=== PATIENT | female | born 1990 | race Caucasian/White ===

== ENCOUNTER 2020-08-20 01:31 | Emergency (ER) | payer OTHER, SELFPAY | END 2020-08-20 02:16 | disposition left against medical advice (07) | PROVIDERS: Emergency Provider Emergency Medicine | DX: R50.9 Fever, unspecified (principal) | CPT/HCPCS: 99281 ==

== ENCOUNTER 2021-04-02 10:25 | Emergency (ER) | payer OTHER, SELFPAY ==
[2021-04-02 11:08] VITALS: BP 116/80; PULSE 99; RESP 18; TEMP 36.5; O2SAT 99; BMI 28.3
--- NOTE | 2021-04-02 11:50 | ED.GENADULT ---
HPI - General Adult General Chief complaint: Skin/Abscess/Foreign Body Stated complaint: BOIL Time Seen by Provider: 04/02/21 11:50 Source: patient Limitations: no limitations History of Present Illness HPI narrative: Patient states she has recurring abscesses to the buttocks in the past. Patient states she has had no drainage from this wound at this time and has had to have them drained in the past. Symptoms are moderate. Pain is 8/10. No other complaints at this time. Worsening symptoms over the past 2-3 days. Related Data Previous Rx's Medication Instructions Recorded cephalexin [Keflex] 750 mg PO Q12H #10 cap 04/02/21 minocycline 100 mg PO BID #10 cap 04/02/21 Allergies Allergy/AdvReac Type Severity Reaction Status Date / Time sulfamethoxazole Allergy Severe SWELLING Unverified 08/06/20 16:04 [From BACTRIM] trimethoprim [From BACTRIM] Allergy Severe SWELLING Unverified 08/06/20 16:04 Sulfa (Sulfonamide Allergy Unknown Verified 01/25/16 00:00 Antibiotics) Review of Systems Constitutional: Constitutional: Denies chills and Denies fever(s) ENT: Denies sore throat Cardiovascular: Cardiovascular: Denies chest pain, Reports palpitations and Denies dyspnea Respiratory: Respiratory: Denies dyspnea Gastrointestinal: Gastrointestinal: Denies diarrhea, Denies nausea and Denies vomiting Musculoskeletal: Musculoskeletal: Reports no additional musculoskeletal complaints Psychiatric: Psychiatric: Denies anxiety Endocrine: Endocrine: Reports palpitations Hematologic/Lymphatic: Hematologic/Lymphatic: Denies easy bleeding PMFSH Past Medical History Attestation statement: The following information was validated with the patient. Medical History No acute medical problems Surgical History History of appendectomy Tubal ligation status Social History Social History Advance Directives: Yes Advance Directives Information Provided: No Advance Directives on File: No Patient : No Physical Exam Vital Signs: Vital Signs: Last Vital Signs Temp 97.7 F 04/02/21 11:08 Pulse 99 04/02/21 11:08 Resp 18 04/02/21 11:08 BP 116/80 04/02/21 11:08 Pulse Ox 99 04/02/21 11:08 Body Mass Index 28.3 Course Course Course Narrative: Differential diagnosis Perianal abscess on the left Pilonidal abscess Recurring abscesses 12:10 p.m. Patient prepped for I and D of perirectal 1% lidocaine used to infiltrate the wound Patient did not tolerate procedure well and refused to continue at this time she understands the need for an I and D at this time states she would rather try antibiotics and hope it resolves on its own. Patient has had multiple abscesses in the past and understands the risk to benefit. Plan to discharge patient home on minocycline and Keflex at this time. Patient instructed to multiple warm soaks and return if symptoms worsen Discharge Plan Discharge Clinical Impression: Abscess Patient Disposition: Home, Self-Care Instructions: Abscess (ED) Additional Instructions: May still need I&D in the future. Return if symptoms worsen It is likely this abscess and will not go away without getting it drain. Antibiotics as directed Prescriptions: New minocycline 100 mg capsule 100 mg PO BID Qty: 10 RF: 0 cephalexin [Keflex] 750 mg capsule 750 mg PO Q12H Qty: 10 RF: 0 Referrals: Felicita Melgar MD [Primary Care Provider] - 2 days
[2021-04-02] MEDS: Lidocaine HCl 1 % MPF 5 ML VIAL INFILTRATI (12:41)
== END 2021-04-02 12:35 | disposition home or self-care (01) ==
PROVIDERS: Emergency Provider Emergency Medicine; PCP Internal Medicine
DX: L02.31 Cutaneous abscess of buttock (principal); Z79.899 Other long term (current) drug therapy
CPT/HCPCS: 99283

== ENCOUNTER 2022-01-10 08:15 | Emergency (ER) | payer OTHER, SELFPAY ==
[2022-01-10 08:46] VITALS: BP 125/77; PULSE 109; RESP 18; TEMP 36.7; O2SAT 98; BMI 26.2
--- NOTE | 2022-01-10 08:51 | ED.SKABFB ---
HPI - Skin/Abscess/Foreign Bdy General Chief complaint: Skin/Abscess/Foreign Body Stated complaint: question shingles Time Seen by Provider: 01/10/22 08:51 Source: patient Mode of arrival: ambulatory Limitations: no limitations History of Present Illness MD complaint: rash and lesion Onset (ago): day(s) (3) Tetanus up to date: yes Location: chest (L chest wall onto back under armpit) Severity: severe Quality: burning and aching Pain Consistency: constant Relieving factors: none Exacerbating factors: palpation and movement Context: other (hx of shingles in the past) Associated symptoms: denies other symptoms Treatments prior to arrival: none Related Data Previous Rx's Medication Instructions Recorded cephalexin 750 mg capsule (Keflex) 750 mg PO Q12H #10 cap 04/02/21 minocycline 100 mg capsule 100 mg PO BID #10 cap 04/02/21 hydrocodone 5 mg-acetaminophen 325 1 tab PO Q6H PRN #12 tab 01/10/22 mg tablet prednisone 20 mg tablet 20 mg PO DAILY 5 Days #5 tab 01/10/22 valacyclovir 1 gram tablet 1,000 mg PO TID 7 Days #21 tab 01/10/22 (Valtrex) Allergies Allergy/AdvReac Type Severity Reaction Status Date / Time sulfamethoxazole Allergy Severe SWELLING Unverified 08/06/20 16:04 [From BACTRIM] trimethoprim [From BACTRIM] Allergy Severe SWELLING Unverified 08/06/20 16:04 Sulfa (Sulfonamide Allergy Unknown Unknown Verified 01/10/22 08:49 Antibiotics) Review of Systems Review of Systems: Constitutional : No Fever, No Chills ENT/Mouth : No sore throat, No Rhinorrhea Eyes: No Eye Pain, No Swelling, No Redness Cardiovascular : No Chest Pain, No SOB Respiratory : No Cough, No Sputum Gastrointestinal : No Nausea, No Vomiting, No Diarrhea, No abdominal Pain Genitourinary : No Dysuria, No Hematuria Musculoskeletal : No joint pain, No Myalgias, No Joint Swelling Skin : pos Skin Lesions, positive skin rash Neuro : No Weakness, No Numbness, No Headache Psych : No Anxiety, No Depression PMFSH Past Medical History Attestation statement: The following information was validated with the patient. Medical History No acute medical problems Surgical History History of appendectomy Tubal ligation status Social History Social History Patient Tobacco Use Status: Never used Tobacco Advance Directives: No Advance Directives Information Provided: No Patient : No Physical Exam Vital Signs: Vital Signs: Last Vital Signs Temp 98.0 F 01/10/22 08:46 Pulse 109 H 01/10/22 08:46 Resp 18 01/10/22 08:46 BP 125/77 01/10/22 08:46 Pulse Ox 98 01/10/22 08:46 BMI result Body Mass Index 26.2 Appearance: Alert. Oriented X3. No acute distress. Eyes: Pupils equal, round and reactive to light. ENT: Pharynx normal. Neck: Normal inspection. Neck supple. CVS: Normal heart rate and rhythm. Pulses normal. Chest wall: L axilla thoracic region blistering areas raised vesicles appears as shingles. Respiratory: No respiratory distress. Breath sounds normal. Abdomen: Soft and non-tender. Skin: Skin warm and dry. Normal skin color. Normal skin turgor. Extremities: No lower extremity edema. Neuro: Oriented X 3. No motor deficit. No sensory deficit. Course Course Course Narrative: had to change pain medications due to issue with insurance MDM - Skin/Abscess/Foreign Bdy MDM Narrative Medical decision making narrative: 31 yo female with hx of shingles in the past here with 3 days of L thoracic axilla rash consistent with shingles no signs of secondary infectino - will start on valtrex, prednisone and morphine - given precautions to return Discharge Plan Discharge Clinical Impression: Shingles Qualifiers: Herpes zoster complications: without complications Qualified Code(s): B02.9 - Zoster without complications Patient Disposition: Home, Self-Care Instructions: Shingles (ED) Additional Instructions: return to ED for any worsening symptoms or concerns monitor for signs of infection Prescriptions: New valacyclovir [Valtrex] 1 gram tablet 1,000 mg PO TID 7 Days Qty: 21 0RF prednisone 20 mg tablet 20 mg PO DAILY 5 Days Qty: 5 0RF hydrocodone-acetaminophen 5-325 mg tablet 1 tab PO Q6H PRN (Reason: pain) Qty: 12 0RF No Action minocycline 100 mg capsule 100 mg PO BID Qty: 10 0RF cephalexin [Keflex] 750 mg capsule 750 mg PO Q12H Qty: 10 0RF Interventions: ED Discharge Assessment Last Done: 01/10/22 09:26 Discharge Date/Time: 01/10/22 09:26
== END 2022-01-10 09:26 | disposition home or self-care (01) ==
PROVIDERS: Emergency Provider Emergency Medicine; PCP Internal Medicine
DX: B02.9 Zoster without complications (principal); Z79.899 Other long term (current) drug therapy
CPT/HCPCS: 99283

== ENCOUNTER 2022-01-11 09:17 | Emergency (ER) | payer OTHER, SELFPAY ==
[2022-01-11 09:44] VITALS: BP 116/77; PULSE 89; RESP 16; TEMP 36.7; O2SAT 97; BMI 26.4
--- NOTE | 2022-01-11 09:54 | ED.SKABFB ---
HPI - Skin/Abscess/Foreign Bdy General Chief complaint: Skin/Abscess/Foreign Body Stated complaint: Shingles Time Seen by Provider: 01/11/22 09:52 Source: patient Mode of arrival: ambulatory Limitations: no limitations History of Present Illness HPI narrative: Patient is a 31 year old female presenting to the emergency department today with shingles. Patient states that she was seen here yesterday and diagnosed with a shingles flare. Patient states that she has a history of shingles and this feels like it did before. Patient states that yesterday, she was prescribed prednisone, vicodin, and an antiviral but she is is still in a lot of pain. Patient denies any changes in the shingles rash. Patient denies any dizziness, lightheadedness, abdominal pain, nausea, vomiting, fever, chills, blurry vision, double vision, loss of vision, chest pain, difficulty breathing, shortness of breath, back pain, night sweats, pain with urination, increased urinary frequency, increased urinary urgency, blood in her urine or stool, syncope or a near syncopal episode, recent trauma or falls, bowel incontinence, bladder incontinence, bowel retention, bladder retention, or any other complaints at this time. MD complaint: rash Location: chest (left chest) Severity: mild Quality: burning and constant Pain Consistency: constant Relieving factors: none Exacerbating factors: none Associated symptoms: denies other symptoms Related Data Previous Rx's Medication Instructions Recorded cephalexin 750 mg capsule (Keflex) 750 mg PO Q12H #10 cap 04/02/21 minocycline 100 mg capsule 100 mg PO BID #10 cap 04/02/21 hydrocodone 5 mg-acetaminophen 325 1 tab PO Q6H PRN #12 tab 01/10/22 mg tablet prednisone 20 mg tablet 20 mg PO DAILY 5 Days #5 tab 01/10/22 valacyclovir 1 gram tablet 1,000 mg PO TID 7 Days #21 tab 01/10/22 (Valtrex) Allergies Allergy/AdvReac Type Severity Reaction Status Date / Time sulfamethoxazole Allergy Severe SWELLING Unverified 08/06/20 16:04 [From BACTRIM] trimethoprim [From BACTRIM] Allergy Severe SWELLING Unverified 08/06/20 16:04 Sulfa (Sulfonamide Allergy Unknown Unknown Verified 01/10/22 08:49 Antibiotics) Review of Systems Constitutional: Constitutional: Reports no additional constitutional complaints, Denies chills, Denies fever(s) and Denies night sweats Eyes: Eyes: Reports no additional eye complaints, Denies blurry vision, Denies change in vision, Denies diplopia, Denies eye discharge, Denies loss of vision and Denies eye pain ENT: Denies dizziness Cardiovascular: Cardiovascular: Reports no additional cardiovascular complaints, Denies chest pain, Denies lightheadedness, Denies Loss of Consciousness and Denies dyspnea Respiratory: Respiratory: Reports no additional respiratory complaints and Denies dyspnea Gastrointestinal: Gastrointestinal: Reports no additional gastrointestinal complaints, Denies abdominal pain, Denies melena, Denies hematochezia, Denies change in bowel habits and Denies change in stool character Genitourinary: Genitourinary: Denies hematuria, Denies urinary frequency, Denies dysuria, Denies urinary incontinence, Denies urinary hesitancy and Denies urinary urgency Musculoskeletal: Musculoskeletal: Reports no additional musculoskeletal complaints, Denies numbness and Denies tingling Integumentary/Breasts: Skin/Breast: Reports rash (left axilla and breast) Neurologic: Denies dizziness, Denies loss of vision, Denies numbness and Denies tingling Psychiatric: Psychiatric: Reports no additional psychiatric complaints Endocrine: Endocrine: Reports no additional endocrine complaints Hematologic/Lymphatic: Hematologic/Lymphatic: Reports no additional hematologic/lymphatic complaints Allergic/Immunologic: Allergic/Immunologic: Reports no additional allergic/immunologic complaints [facility] Past Medical History Attestation statement: The following information was validated with the patient. Source: old records reviewed Medical History No acute medical problems Surgical History History of appendectomy Tubal ligation status Social History Social History Patient Tobacco Use Status: Never used Tobacco Advance Directives: No Advance Directives Information Provided: No Patient : No Physical Exam Vital Signs: Vital Signs: Last Vital Signs Temp 98.1 F 01/11/22 09:44 Pulse 89 01/11/22 09:44 Resp 16 01/11/22 09:44 BP 116/77 01/11/22 09:44 Pulse Ox 97 01/11/22 09:44 BMI result Body Mass Index 26.4 Const: General: cooperative, no acute distress, alert and awake Nutritional Appearance: well nourished Orientation/consciousness: patient oriented x3 Limitations: no limitations HENMT: Head: Yes normal to inspection and Yes atraumatic Ears: hearing grossly normal bilaterally and external ears normal General nose exam: Normal external nose present, no nasal discharge noted and no epistaxis Face and sinus: Yes normal facial exam, No abrasion and No laceration Mouth: Normal oral and palatal mucosa present, no drooling and no muffled voice Eyes: General: appearance normal, both eyes and all related structures Periorbital: periorbital findings normal Eyelids: Yes eyelids normal Conjunctivae: conjunctivae normal Pupils: Equal, round and reactive pupils present EOM: EOMs intact bilaterally Neck: Neck: Yes normal visual inspection, Yes full ROM and Yes no lymphadenopathy Chest: Chest palpation & inspection: normal inspection of the chest Resp: Effort & Inspection: normal respiratory effort and able to speak in complete sentences Auscultation: clear to auscultation bilaterally Cardio: Rate: regular rate Rhythm: regular rhythm GI: Inspection: Yes normal to inspection Skin: Other: herpetic lesions present to the left axilla and breast, consistent with a herpes zoster outbreak Neuro: General: patient oriented x3 and moves all extremities Cranial nerves: Yes Equal, round and reactive pupils present Cognition (Neuro): normal cognition Motor exam (neuro): 5/5 motor strength present throughout Sensory Exam: Normal double simultaneous stimulation for sensation Coordination: [id number] test normal Extrem: General: Yes normal to inspection, Yes full ROM and Yes capillary refill normal Psych: Appearance: grossly normal Mental Status: mental status grossly normal Affect: normal affect Attitude: cooperative Thought process: Normal thought process present Thought content: Normal thought content present Insight: Good insight present (Psych) MDM - Skin/Abscess/Foreign Bdy MDM Narrative Medical decision making narrative: Patient is a 31 year old female presenting to the emergency department today with a current shingles outbreak. Patient's physical exam showed herpetic lesions to the left axilla and left breast, consistent with an acute herpes zoster outbreak. There was no signs of an acute infectious process such as red streaking, warmth, or abscesses. I explained my physical exam findings to the patient. I answered all questions asked by the patient. I explained to the patient that the treatment regimen she was started on yesterday and currently undergoing, is the correct, most up to date, treatment regimen for an acute shingles outbreak. I stressed the importance of the patient taking her medication as prescribed. I stressed the importance of the patient following up with her primary care provider. I stressed the importance of the patient returning to the emergency department immediately if her symptoms were to worsen or if she were to develop any dizziness, shortness of breath, difficulty breathing, chest pain, blurry vision, loss of vision, nausea, vomiting, abdominal pain, fever, chills, back pain, or any other complaints. Patient verbalized agreement and understanding with this treatment plan and discharge. Differential Diagnosis Differential diagnosis: Likely viral exanthem and herpes zoster Medical Records Attestation: I reviewed the patient's medical records. Discharge Plan Discharge Clinical Impression: Herpes zoster Patient Disposition: Home, Self-Care Instructions: Shingles (ED) Additional Instructions: Continue taking your medications as prescribed at your previous ED visit. Follow up with your primary care provider. Return to the emergency department immediately if your symptoms worsen or if you develop any dizziness, shortness of breath, difficulty breathing, chest pain, blurry vision, loss of vision, nausea, vomiting, abdominal pain, fever, chills, back pain, or any other complaints. Prescriptions: No Action minocycline 100 mg capsule 100 mg PO BID Qty: 10 0RF cephalexin [Keflex] 750 mg capsule 750 mg PO Q12H Qty: 10 0RF valacyclovir [Valtrex] 1 gram tablet 1,000 mg PO TID 7 Days Qty: 21 0RF prednisone 20 mg tablet 20 mg PO DAILY 5 Days Qty: 5 0RF hydrocodone-acetaminophen 5-325 mg tablet 1 tab PO Q6H PRN (Reason: pain) Qty: 12 0RF Referrals: Felicita Melgar MD [Primary Care Provider] - 2 days Print Language: Belarusian
== END 2022-01-11 10:18 | disposition home or self-care (01) ==
PROVIDERS: Emergency Provider Emergency Medicine; PCP Internal Medicine
DX: B02.9 Zoster without complications (principal)
CPT/HCPCS: 99282; 99283

== ENCOUNTER 2022-05-16 18:25 | Emergency (ER) | payer OTHER, SELFPAY | END 2022-05-16 19:31 | disposition left against medical advice (07) | PROVIDERS: Emergency Provider Emergency Medicine; PCP Internal Medicine | DX: R07.9 Chest pain, unspecified (principal); R05.9 Cough, unspecified ==

== ENCOUNTER 2022-07-18 08:52 | Inpatient (IN) | payer OTHER, SELFPAY ==
--- NOTE | ~2022-07-18 | XR_ITS ---
EXAMINATION: XR CHEST CLINICAL INFORMATION: Chest pain and shortness of breath. COMPARISON: Chest radiograph 08/11/2020. TECHNIQUE: 2 views of the chest were obtained. FINDINGS: Normal appearance of the cardiomediastinal silhouette. No focal airspace opacity, pleural effusion or pneumothorax. No acute osseous abnormalities. The visualized upper abdomen is within normal limits. XR/XR chest 2V IMPRESSION: No acute cardiopulmonary findings.
--- NOTE | ~2022-07-18 | CT_ITS ---
EXAMINATION: CT ANGIOGRAM OF THE CHEST WITH AND WITHOUT CONTRAST (CT PULMONARY ANGIOGRAM FOR PE) CLINICAL INFORMATION: Chest pain, shortness of breath, tachycardia, elevated d-dimer. COMPARISON: No similar priors. TECHNIQUE: Prior to contrast administration, noncontrast localization images were obtained. Subsequently, multidetector volumetric imaging was performed from the thoracic inlet to below the diaphragms following the administration of 65 mL Omnipaque 350 intravenous contrast. No contrast reaction reported Sagittal, coronal, and MIP oblique sagittal reformatted images were obtained on the CT workstation, uploaded to PACS, and reviewed. This CT examination was performed using dose optimization techniques as appropriate, variously including the following: *Automated exposure control *Adjustment of mA and/or kV according to patient size (this includes techniques or standardized protocols for targeted exams where dose is matched to indication/reason for exam; i.e. extremities or head) *Use of iterative reconstruction technique Total exam dose-length product 234 mGy-cm FINDINGS: QUALITY OF STUDY/CONTRAST BOLUS: Satisfactory. PULMONARY ARTERIES: Query small nonocclusive filling defects within segmental branches of the posterior right lower lobe, for instance images 264 through 281, series 7. No central pulmonary emboli. THORACIC AORTA: No aneurysm or dissection. LUNG: Cylindrical bronchiectasis with mucus impaction in the posterior right lower lobe. There is a background of mild diffuse bronchial wall thickening and scattered cystic lucencies. Irregular opacity measuring approximately 1.7 cm on largest axial dimension (7:236) abutting the anterior aspect of the right major fissure. There is a 0.5 cm nodule in the anterolateral right upper lobe (7:174). Platelike opacities in the lingula and posterior left lower lobe in favored to represent scarring or subsegmental atelectasis. PLEURA: No pleural effusion or pneumothorax. MEDIASTINUM: Normal heart size. No pericardial effusion. No evidence of septal bowing or right heart strain. There is mediastinal and hilar lymphadenopathy, for instance a 1.6 x 1.8 cm left hilar lymph node (5:25) and a 1.2 cm short axis subcarinal lymph node (5:26). CHEST WALL/AXILLA: There is asymmetric skin thickening in the right axillary region (5:4). No chest wall mass or axillary lymphadenopathy by size criteria. OSSEOUS STRUCTURES: No acute or suspicious osseous abnormality. UPPER ABDOMEN: Hepatic steatosis. No reflux of contrast into the hepatic veins to suggest elevated right heart pressures. CT/CT angio chest PE protocol IMPRESSION: Questionable small nonocclusive pulmonary emboli in the right lower lobe. Bronchiectasis with mucus impaction in the posterior right lower lobe. Indeterminate irregular opacity in the inferior right upper lobe abutting the major fissure and 0.5 cm nodule in the anterolateral right upper lobe. Query cystic lung disease with bronchial wall thickening and very small cystic lucencies scattered in the parenchyma. Nonspecific mediastinal and hilar lymphadenopathy. Recommend a short-term follow-up high-resolution chest CT. VTE: positive This critical result was discussed with Juanita Haas, nurse practitioner at 07/18/2022 12:15 PM and it was ascertained that the content and urgency of the report was understood at the time of direct communication.
--- NOTE | ~2022-07-18 | US_ITS ---
EXAMINATION: US VENOUS ULTRASOUND WITH DOPPLER LOWER EXTREMITY, BILATERAL CLINICAL INFORMATION: New bilateral pulmonary emboli COMPARISON: CT PE study 07/18/2022 TECHNIQUE: Ultrasound of the deep veins is performed from the hip to the calf with compression sonography and color and pulse Doppler assessment. Spectral analysis with color-flow imaging is performed. FINDINGS: RIGHT: There is normal venous compression and respiratory variation and augmented flow. The visualized common femoral vein, superficial femoral vein, profunda femoral vein, popliteal vein, and the trifurcation region shows no evidence of deep venous thrombosis. There is no significant popliteal fossa cyst. Some small lymph nodes are present in the groin LEFT: There is normal venous compression and respiratory variation and augmented flow. The visualized common femoral vein, superficial femoral vein, profunda femoral vein, popliteal vein, and the trifurcation region shows no evidence of deep venous thrombosis. There is no significant popliteal fossa cyst. Some small lymph nodes are present in the groin If the patient's symptoms persist, followup ultrasound in 5 days 7 days might be of value to exclude proximal propagation from a non-visualized calf vein. US/US venous duplex LE BI IMPRESSION: No DVT demonstrated in either lower extremity.
--- NOTE | 2022-07-18 09:01 | ECG_ITS ---
Test Reason : chest pain Blood Pressure : / mmHG Vent. Rate : 091 BPM Atrial Rate : 091 BPM P-R Int : 160 ms QRS Dur : 076 ms QT Int : 342 ms P-R-T Axes : 023 057 030 degrees QTc Int : 420 ms Normal sinus rhythm Normal ECG When compared with ECG of 30-APR-2018 08:48, No significant change was found Referred By: Juanita Haas Electronically Signed By:PRIYA FAIRCHILD
[2022-07-18 09:02] VITALS: BP 115/74; PULSE 101; RESP 14; TEMP 37.2; O2SAT 98; BMI 27.4
[2022-07-18 09:09] VITALS: BP 116/54; PULSE 104; RESP 20; TEMP 36.6; O2SAT 97; BMI 25.1
--- NOTE | 2022-07-18 09:40 | ED.CHESTPAIN ---
HPI - Chest Pain General Chief Complaint: Chest Pain Stated Complaint: chest pains Time Seen by Provider: 07/18/22 09:01 Source: patient Mode of arrival: ambulatory Limitations: no limitations History of Present Illness HPI narrative: Patient presents emergency department for evaluation of chest pain. Onset was yesterday. Located to the mid chest just below her sternum. Pain has been constant since its onset, 1st noticed while she was eating at a buffet. It is described as sharp. It is aggravated by movement and deep inspiration, denies alleviating factors. States that she has been feeling hot and cold, but when checking temperature she has not been febrile. Also has associated cough intermittently productive. She reports a history of similar pain in the past, she was found to have pneumonia. Denies nasal congestion, ear pain, sore throat, palpitations, nausea, vomiting, abdominal pain, dysuria, urinary frequency, possibility of . Related Data Home Medications Medication Instructions Recorded Confirmed albuterol sulfate 90 mcg/actuation 2 puff inhalation Q4H 07/18/22 07/18/22 aerosol inhaler (ProAir HFA) bictegravir 50 mg-emtricitabine 1 tab PO DAILY 07/18/22 07/18/22 200 mg-tenofovir alafenam 25 mg tablet (Biktarvy) Allergies Allergy/AdvReac Type Severity Reaction Status Date / Time sulfamethoxazole Allergy Severe SWELLING Verified 07/18/22 09:02 [From BACTRIM] trimethoprim [From BACTRIM] Allergy Severe SWELLING Verified 07/18/22 09:02 Sulfa (Sulfonamide Allergy Unknown Unknown Verified 07/18/22 09:02 Antibiotics) Review of Systems Review of Systems: Constitutional : No Weight loss, No Fever, No Chills ENT/Mouth :? No sore throat, No Rhinorrhea Eyes: No Eye Pain, No Swelling Cardiovascular : pos Chest Pain, pos SOB, no Dyspnea on Exertion, No Orthopnea, No Edema, No Palpitations Respiratory : No Cough, No Sputum Gastrointestinal : pos Nausea, No Vomiting, No Diarrhea, No abdominal Pain, No Hematochezia, No Melena Genitourinary : No Dysuria, No Urinary Frequency Musculoskeletal : No joint pain, No Myalgias, No Joint Swelling Skin : No Skin Lesions, No rash Neuro : No Weakness, No Numbness, No Dizziness, No Headache Psych : No Anxiety/Panic, No Depression Heme/Lymph: No Bruising, No Lymphadenopathy Endocrine : No Polyuria, No Polydipsia Yes all other systems are reviewed and are negative [facility] Past Medical History Attestation statement: The following information was validated with the patient. Source: old records reviewed Medical History (Updated 07/18/22 @ 16:37 by Florencia Moura MD) HIV (human immunodeficiency virus infection) No acute medical problems Surgical History History of appendectomy Tubal ligation status Social History Social History Household Members: Spouse and Children Housing: Apartment Do you presently have visiting nurse or other home services: No Alcohol intake: never Patient Tobacco Use Status: Current someday Tobacco user Tobacco use type: Cigarette Cigarettes Per Day: 5 Substance Use Type: Marijuana Physical Exam Vital Signs: Vital Signs: Last Vital Signs Temp 97.8 F 07/18/22 09:09 Pulse 76 07/18/22 14:43 Resp 18 07/18/22 14:43 BP 107/65 07/18/22 14:43 Pulse Ox 100 07/18/22 14:43 O2 Del Method 07/18/22 14:43 BMI result Body Mass Index 25.1 Appearance: Alert.?Oriented to person, place and time. No acute distress.?Normal affect. Eyes: Pupils equal, round and reactive to light.? ENT: Pharynx normal.?? Neck: Normal inspection.? Neck supple.?? CVS: Heart sounds normal. Normal heart rate and rhythm.? Pulses normal.?? Respiratory: No respiratory distress.? Lung sounds clear to auscultation bilaterally. Audible productive cough. Reproducible chest pain/tenderness on palpation of the anterior chest wall. ? Abdomen: Soft and non-tender. Normoactive bowel sounds. No pulsatile mass.?? Skin: Skin warm and dry.? Normal skin color.? Normal skin turgor.?? Extremities: No lower extremity edema.? Neuro: Moves all extremities spontaneously. Sensation intact bilaterally. No motor deficits. Ambulates with normal steady gait. Course Course Course Narrative: Patient is a 31-year-old female with a past medical history of HIV, currently on Biktarvy, unaware of her most recent CD4 counts, or whether Viral load has been detectable. She presents today for evaluation of chest pain, shortness of breath, and cough. Patient noted to be mildly tachycardic, however is afebrile, without tachypnea or hypoxia on room air. Will obtain CBC to evaluate for leukocytosis/ anemia, CMP to evaluate for abnormal electrolytes /abnormal renal function/ abnormal hepatic/biliary function, EKG and troponin to evaluate for ischemia/ACS, D-Dimer to exclude Pulmonary embolism, Chest x-ray to evaluate for consolidation/ infiltrate/ mass/ pulmonary congestion and Urinalysis. At this time will trial Tylenol and ibuprofen for pain as she has not yet taken either. Reevaluation(s) Reevaluation #1: CMP is overall unremarkable, potassium 3.2. D-dimer 366, therefore will obtain CT angio of the chest to exclude pulmonary embolism. Chest x-ray with no evidence of acute cardiopulmonary process. Time: 10:31 Reevaluation #2: Received critical result from radiologist Xochilt Nickerson, CT angio of the chest reveals questionable small nonocclusive emboli in the lower lobe bronchiectasis, irregular opacity in the right upper lobe, nonspecific mediastinal and lymphadenopathy. Reached out to hospitalist Dr. Mitchell for admission to medicine service, patient accepted. Patient updated on all findings, agreeable with plan of care. Time: 12:13 [facility] - Chest Pain Medical Records Data Attestation: I reviewed the patient's medical records. Lab Data Attestation: I reviewed the patient's lab results. Result diagrams: 07/18/22 09:59 07/18/22 09:59 Labs: Lab Results 07/18/22 07/18/22 07/18/22 Range/Units 09:59 09:59 09:59 WBC 5.5 (4.8-10.8) X10*3/uL RBC 3.37 L (4.20-5.50) X10*6/uL Hgb 10.0 L (12.0-16.0) g/dl Hct 31.0 L (37.0-47.0) % MCV 92.0 (80.0-98.0) fL MCH 29.7 (27.0-33.0) pg MCHC 32.3 (31.0-35.0) g/dl RDW 16.8 H (11.0-16.0) % Plt Count 325 (160-400) X10*3/uL MPV 10.5 (9.4-12.3) fL Immature Gran % (Auto) Cancelled Neut % (Auto) Cancelled Lymph % (Auto) Cancelled [place] % (Auto) Cancelled Eos % (Auto) Cancelled Baso % (Auto) Cancelled Lymph # (Auto) Cancelled [place] # (Auto) Cancelled Eos # (Auto) Cancelled Baso # (Auto) Cancelled Abs Immat Gran (auto) Cancelled Absolute Neuts (auto) Cancelled Absolute Nucleated RBC 0.000 (0.0-0.012) X10*3/uL Nucleated RBC % (auto) 0.0 (0.0-0.2) /100WBC Neutrophils % (Manual) 84 H (45-73) % Band Neutrophils % 0 L (3-5) % Lymphocytes % (Manual) 12 L (20-40) % Monocytes % (Manual) 4 (2-11) % Abs Neuts (Manual) 4.6 (2.0-8.3) X10*3/uL Lymphocytes # (Manual) 0.7 L (1.2-4.9) X10*3/uL Monocytes # (Manual) 0.2 (0.1-1.2) X10*3/uL Platelet Estimate NORMAL (NORMAL) Large Platelets PRESENT Plt Morphology Comment NOTED RBC Morphology NOTED Microcytosis 1+ (5-14) /OIF D-Dimer High Sensitivty NG/ML Sodium 138 (135-145) mmol/L Potassium 3.2 L (3.3-5.1) mmol/L Chloride 105 (96-108) mmol/L Carbon Dioxide 25 (22-29) mmol/L Anion Gap 11 L (12-20) BUN 9 (9-16) mg/dL Creatinine 0.67 (0.5-1.4) mg/dL Estim Creat Clear Calc 119.3 Estimated GFR > 60 Random Glucose 93 (60-115) mg/dL Calcium 8.5 (8.4-10.2) mg/dL Magnesium 1.7 (1.6-2.6) mg/dL Total Bilirubin 0.3 (0.0-1.0) mg/dL AST 14 (5-31) U/L ALT 9 (0-31) U/L Alkaline Phosphatase 89 (39-117) U/L Troponin I High Sens (<3.5-17.0) ng/L Total Protein 7.4 (6.5-8.0) g/dL Albumin 3.4 L (3.5-5.0) g/dL Lipase 17 (8-78) U/L COVID-19 (SUMI) Negative (Negative) COVID-19 Clin Com See Note 07/18/22 07/18/22 Range/Units 09:59 09:59 WBC (4.8-10.8) X10*3/uL RBC (4.20-5.50) X10*6/uL Hgb (12.0-16.0) g/dl Hct (37.0-47.0) % MCV (80.0-98.0) fL MCH (27.0-33.0) pg MCHC (31.0-35.0) g/dl RDW (11.0-16.0) % Plt Count (160-400) X10*3/uL MPV (9.4-12.3) fL Immature Gran % (Auto) Neut % (Auto) Lymph % (Auto) [place] % (Auto) Eos % (Auto) Baso % (Auto) Lymph # (Auto) [place] # (Auto) Eos # (Auto) Baso # (Auto) Abs Immat Gran (auto) Absolute Neuts (auto) Absolute Nucleated RBC (0.0-0.012) X10*3/uL Nucleated RBC % (auto) (0.0-0.2) /100WBC Neutrophils % (Manual) (45-73) % Band Neutrophils % (3-5) % Lymphocytes % (Manual) (20-40) % Monocytes % (Manual) (2-11) % Abs Neuts (Manual) (2.0-8.3) X10*3/uL Lymphocytes # (Manual) (1.2-4.9) X10*3/uL Monocytes # (Manual) (0.1-1.2) X10*3/uL Platelet Estimate (NORMAL) Large Platelets Plt Morphology Comment RBC Morphology Microcytosis /OIF D-Dimer High Sensitivty 366 NG/ML Sodium (135-145) mmol/L Potassium (3.3-5.1) mmol/L Chloride (96-108) mmol/L Carbon Dioxide (22-29) mmol/L Anion Gap (12-20) BUN (9-16) mg/dL Creatinine (0.5-1.4) mg/dL Estim Creat Clear Calc Estimated GFR Random Glucose (60-115) mg/dL Calcium (8.4-10.2) mg/dL Magnesium (1.6-2.6) mg/dL Total Bilirubin (0.0-1.0) mg/dL AST (5-31) U/L ALT (0-31) U/L Alkaline Phosphatase (39-117) U/L Troponin I High Sens < 3.5 (<3.5-17.0) ng/L Total Protein (6.5-8.0) g/dL Albumin (3.5-5.0) g/dL Lipase (8-78) U/L COVID-19 (SUMI) (Negative) COVID-19 Clin Com Imaging Data Chest x-ray: Radiologist's impression: FINDINGS: Normal appearance of the cardiomediastinal silhouette. No focal airspace opacity, pleural effusion or pneumothorax. No acute osseous abnormalities. The visualized upper abdomen is within normal limits. XR/XR chest 2V IMPRESSION: No acute cardiopulmonary findings. CT scan - chest: Radiologist's impression: CT/CT angio chest PE protocol IMPRESSION: Questionable small nonocclusive pulmonary emboli in the right lower lobe. ? Bronchiectasis with mucus impaction in the posterior right lower lobe. ? Indeterminate irregular opacity in the inferior right upper lobe abutting the major fissure and 0.5 cm nodule in the anterolateral right upper lobe. ? Query cystic lung disease with bronchial wall thickening and very small cystic lucencies scattered in the parenchyma. ? Nonspecific mediastinal and hilar lymphadenopathy. ? Recommend a short-term follow-up high-resolution chest CT. ? VTE: positive ECG Data ECG #1: Attestation: I personally reviewed and interpreted this ECG as follows: ECG interpretation date: 07/18/22 Prior ECG tracings: available for review Interpretation: Rate: 91 Rhythm:? Normal sinus rhythm [place]:? Normal Normal P waves.? Normal MONIQUE.?? Normal QRS complex.?? ST T wave :? No ST elevation, no ST depression, no T-wave inversion? qTC: 420 prior studies:? April 2018 The study has been interpreted contemporaneously by me. Discharge Plan Discharge Clinical Impression: Pulmonary embolism Patient Disposition: Admitted As Inpatient Interventions: Admission Worksheet (ED) Last Done: 07/18/22 15:57 Discharge Date/Time: 07/18/22 16:01
[2022-07-18 10:15] LABS: Mean Corpuscular HGB Conc 32.3 g/dl (31.0-35.0); Mean Corpuscular Hemoglobin 29.7 pg (27.0-33.0); Mean Platelet Volume 10.5 fL (9.4-12.3); Platelet Count 325 X10*3/uL (160-400); Red Blood Count 3.37 X10*6/uL (4.20-5.50); Red Cell Distribution Width 16.8 % (11.0-16.0)
[2022-07-18 10:16] LABS: D Dimer High Sensitivity 366 NG/ML; WBC ABN SCTR FOR CBC 1
[2022-07-18 10:25] LABS: Alanine Aminotransferase 9 U/L (0-31); Albumin Level 3.4 g/dL (3.5-5.0); Alkaline Phosphatase 89 U/L (39-117); Anion Gap 11 (12-20); Aspartate Amino Transferase 14 U/L (5-31); Bilirubin Total 0.3 mg/dL (0.0-1.0); Blood Urea Nitrogen 9 mg/dL (9-16); Calcium 8.5 mg/dL (8.4-10.2); Carbon Dioxide 25 mmol/L (22-29); Chloride 105 mmol/L (96-108); Creatinine Clr Calc Pharmacy 119.3; Estimated Glomerular Filt Rate > 60; Glucose Random 93 mg/dL (60-115); Lipase 17 U/L (8-78); Magnesium 1.7 mg/dL (1.6-2.6); Potassium 3.2 mmol/L (3.3-5.1); Sodium 138 mmol/L (135-145); Total Protein 7.4 g/dL (6.5-8.0); Troponin-I High Sensitivity < 3.5 ng/L (<3.5-17.0)
[2022-07-18 10:26] LABS: Band Neutrophils Percent 0 % (3-5); Lymphocytes Percent Manual 12 % (20-40); Monocytes Percent Manual 4 % (2-11); Neutrophils Percent Manual 84 % (45-73)
[2022-07-18 10:28] LABS: Large Platelet PRESENT; Lymphocytes Absolute Manual 0.7 X10*3/uL (1.2-4.9); Microcytosis 1+ (5-14) /OIF; Monocytes Absolute Manual 0.2 X10*3/uL (0.1-1.2); Neutrophils Absolute Manual 4.6 X10*3/uL (2.0-8.3); Platelet Estimate NORMAL (NORMAL); Platelet Morphology Comment NOTED; RBC Morphology NOTED; White Blood Count 5.5 X10*3/uL (4.8-10.8)
[2022-07-18] MEDS: Ibuprofen 600 MG TABLET PO (10:38)
[2022-07-18] MEDS: Acetaminophen 325 MG TABLET 975 MG PO (10:38)
[2022-07-18 10:54] LABS: COVID-19 Test Negative (Negative)
[2022-07-18] MEDS: iohexoL 350 MG/ML 100 ML INFUS..BTL IV (11:02)
--- NOTE | 2022-07-18 14:11 | PHA.MEDREC ---
Pharmacy Consult ? Medication Reconciliation Pharmacy has completed the medication reconciliation. Patient reports only taking Biktarvy at home. She reported stop taking Atovaquone because it is gross. Corina Mathis, TavoD
[2022-07-18] MEDS: Apixaban 5 MG TABLET 10 MG PO ×2 (14:40→21:40)
[2022-07-18] MEDS: cefTRIAXone sodium 1 GM in 0.9 % Sodium Chloride 50 ML IV (14:40)
[2022-07-18 14:43] VITALS: BP 107/65; PULSE 76; RESP 18; O2SAT 100
--- NOTE | 2022-07-18 14:53 | P.HPHOSP_ITS ---
History of Present Illness Date of Service: 07/18/22 Chief Complaint: Chest pain 31-year-old woman presenting to the ER with complaints of substernal sharp chest pain that started yesterday while she was eating. She denied any radiation or any other associated symptoms however she did say pain was felt more with deep inhalation. She denied any recent illness, trauma, airplane travel or leg pain. She lives with her and her children and remains pretty active. She does have a history of HIV and has been on Biktarvy consistently for 7 months. In the ER, chest CTA obtained showed small nonocclusive pulmonary emboli in the right lower lobe with bronchiectasis and mucus impaction in the posterior right lower lobe with an indeterminate irregular opacity in the inferior right upper lobe. Potassium was noted to be low at 3.2 all other labs within acceptable limits, stable vital signs without hypoxia. In the ER she was given a dose of ceftriaxone azithromycin, potassium, ibuprofen and Tylenol. She will be admitted for further management and treatment of community-acquired pneumonia and new onset pulmonary embolus. Review of Systems Review of Systems: Denies any recent fever chills or decrease in appetite respiratory denies any shortness of breath coverage production cardiovascular See HPI gastrointestinal denies any dysphagia abdominal pain nausea vomiting or diarrhea genitourinary denies any dysuria frequency or hematuria musculoskeletal denies any joint pain or swelling neuropsych denies any weakness or seizures all other systems reviewed are negative [facility] Medical History (Updated 07/18/22 @ 15:19 by Latosha Patel NP) HIV (human immunodeficiency virus infection) No acute medical problems Pertinent family history: Denies chest pain Surgical History History of appendectomy Tubal ligation status Social History Alcohol intake: never Patient Tobacco Use Status: Current everyday Tobacco user Use of substances other than those prescribed or required for medical reasons: Yes Substance Use Type: Marijuana Advance Directives: No Advance Directives Information Provided: No Patient : No Meds Allergies Allergy/AdvReac Type Severity Reaction Status Date / Time sulfamethoxazole Allergy Severe SWELLING Verified 07/18/22 09:02 [From BACTRIM] trimethoprim [From BACTRIM] Allergy Severe SWELLING Verified 07/18/22 09:02 Sulfa (Sulfonamide Allergy Unknown Unknown Verified 07/18/22 09:02 Antibiotics) Active Medications: Current Medications Acetaminophen (Acetaminophen 325 Mg Tablet) 650 mg PO Q6H PRN PRN Reason: Pain, Mild (Pain Scale 1-3) Apixaban (Apixaban 5 Mg Tablet) 10 mg PO BID [facility] Stop: 07/24/22 21:01 Last Admin: 07/18/22 14:40 Dose: 10 mg Ceftriaxone Sodium 1 gm/ (Sodium Chloride) 50 mls @ 100 mls/hr IV Q24H [facility] Last Admin: 07/18/22 14:40 Dose: 100 mls/hr Azithromycin 500 mg/ Sodium (Chloride) 250 mls @ 125 mls/hr IV Q24H [facility] Ondansetron HCl (Ondansetron Hcl 4 Mg/2 Ml Vial) 4 mg IVPUSH Q8H PRN PRN Reason: Nausea and Vomiting Pharmacy Consult (Consult Rx Perform Med Rec) 1 each MISCELLANE ONCE PRN PRN Reason: Consult order Sodium Chloride (0.9 % Sodium Chloride Flush 3 Ml Syringe) 3 ml IVFLUSH QSHIFT [facility] Home Medications Medication Instructions Recorded Confirmed Last Taken Type albuterol sulfate 90 mcg/actuation 2 puff inhalation Q4H 07/18/22 07/18/22 Unknown History aerosol inhaler (ProAir HFA) bictegravir 50 mg-emtricitabine 1 tab PO DAILY 07/18/22 07/18/22 07/18/22 History 200 mg-tenofovir alafenam 25 mg tablet (Biktarvy) Physical Exam Vital Signs and Narrative: Vital Signs: Last Vital Signs Temp 97.8 F 07/18/22 09:09 Pulse 76 07/18/22 14:43 Resp 18 07/18/22 14:43 BP 107/65 07/18/22 14:43 Pulse Ox 100 07/18/22 14:43 O2 Del Method 07/18/22 14:43 BMI result Body Mass Index 25.1 Appearing in no acute distress head is normocephalic atraumatic eyes pupils are PERRLA sclera is anicteric mouth throat mucous membranes are intact and moist neck is supple no lymphadenopathy, no JVD noted lung sounds are clear to auscultation heart regular rate rhythm, clear S1, S2 positive bowel sounds, abdomen is soft, nontender neuro patient is alert x3, no focal deficits Skin multiple open lesions throughout the body Results Labs CBC and Chem 7: 07/18/22 09:59 07/18/22 09:59 Labs: Laboratory Results - last 24 hr 07/18/22 07/18/22 07/18/22 09:59 09:59 09:59 MCV 92.0 MCH 29.7 MCHC 32.3 RDW 16.8 H Plt Count 325 MPV 10.5 Immature Gran % (Auto) Cancelled Neut % (Auto) Cancelled Lymph % (Auto) Cancelled [place] % (Auto) Cancelled Eos % (Auto) Cancelled Baso % (Auto) Cancelled Lymph # (Auto) Cancelled [place] # (Auto) Cancelled Eos # (Auto) Cancelled Baso # (Auto) Cancelled Abs Immat Gran (auto) Cancelled Absolute Neuts (auto) Cancelled Absolute Nucleated RBC 0.000 Nucleated RBC % (auto) 0.0 Neutrophils % (Manual) 84 H Band Neutrophils % 0 L Lymphocytes % (Manual) 12 L Monocytes % (Manual) 4 Abs Neuts (Manual) 4.6 Lymphocytes # (Manual) 0.7 L Monocytes # (Manual) 0.2 Platelet Estimate NORMAL Large Platelets PRESENT Plt Morphology Comment NOTED RBC Morphology NOTED Microcytosis 1+ (5-14) D-Dimer High Sensitivty Anion Gap 11 L Estim Creat Clear Calc 119.3 Estimated GFR > 60 Random Glucose 93 Calcium 8.5 Magnesium 1.7 Total Bilirubin 0.3 AST 14 ALT 9 Alkaline Phosphatase 89 Total Protein 7.4 Albumin 3.4 L Lipase 17 COVID-19 (SUMI) Negative COVID-19 Clin Com See Note 07/18/22 09:59 MCV MCH MCHC RDW Plt Count MPV Immature Gran % (Auto) Neut % (Auto) Lymph % (Auto) [place] % (Auto) Eos % (Auto) Baso % (Auto) Lymph # (Auto) [place] # (Auto) Eos # (Auto) Baso # (Auto) Abs Immat Gran (auto) Absolute Neuts (auto) Absolute Nucleated RBC Nucleated RBC % (auto) Neutrophils % (Manual) Band Neutrophils % Lymphocytes % (Manual) Monocytes % (Manual) Abs Neuts (Manual) Lymphocytes # (Manual) Monocytes # (Manual) Platelet Estimate Large Platelets Plt Morphology Comment RBC Morphology Microcytosis D-Dimer High Sensitivty 366 Anion Gap Estim Creat Clear Calc Estimated GFR Random Glucose Calcium Magnesium Total Bilirubin AST ALT Alkaline Phosphatase Total Protein Albumin Lipase COVID-19 (SUMI) COVID-19 Clin Com Imaging Radiologist's Impressions: Impressions Chest X-Ray 07/18/22 10:04 IMPRESSION: No acute cardiopulmonary findings. Chest CTA 07/18/22 10:55 IMPRESSION: Questionable small nonocclusive pulmonary emboli in the right lower lobe. Bronchiectasis with mucus impaction in the posterior right lower lobe. Indeterminate irregular opacity in the inferior right upper lobe abutting the major fissure and 0.5 cm nodule in the anterolateral right upper lobe. Query cystic lung disease with bronchial wall thickening and very small cystic lucencies scattered in the parenchyma. Nonspecific mediastinal and hilar lymphadenopathy. Recommend a short-term follow-up high-resolution chest CT. VTE: positive This critical result was discussed with Juanita Haas nurse practitioner at 07/18/2022 12:15 PM and it was ascertained that the content and urgency of the report was understood at the time of direct communication. Assessment and Plan (1) CAP (community acquired pneumonia): Status: Acute (2) Pulmonary embolism: Status: Acute Plan 31-year-old woman with history of HIV admitted with community-acquired pneumonia and pulmonary embolism Pulmonary embolism Small nonocclusive pulmonary emboli in the right lower lobe Will start Avril Coagulopathy workup Discuss with Hematology Check venous Doppler studies of lower extremities Community-acquired pneumonia Bronchiectasis with mucus impaction to the right lower lobe Start Rocephin and azithromycin Pulmonary consultation Supplemental oxygen as needed HIV CD4 count pending On Biktarvy Asthma. No exacerbation Continue albuterol as needed DVT prophylaxis with Avril Attending Dr. Mitchell Full code Patient likely requires 2 midnights in the hospital for treatment of community- acquired pneumonia necessitating IV antibiotics with bronchiectasis and mucus impaction and new onset pulmonary embolus Quality Stroke Does the patient have a stroke diagnosis?: No VTE Prior VTE?: No VTE Risk Level:: Medical - moderate - high VTE Device Contraindication: Treatment Not Indicated VTE Drug Contraindication: N/A - Med Ordered
[2022-07-18] MEDS: Azithromycin 500 MG in 0.9 % Sodium Chloride 250 ML 125 MG IV (14:59)
[2022-07-18] MEDS: Potassium Chloride ER 20 MEQ TAB.ER.PRT 40 MEQ PO (14:59)
--- NOTE | 2022-07-18 16:37 | P.CNHO_ITS ---
Subjective - Subjective Chief complaint: Consult for: 1. Pulmonary embolism. 2. HIV. Patient: new to practice Consult date: 07/18/22 Requesting Physician: Jorge. Primary Care Provider: Felicita Melgar MD Medical Summary: DIAGNOSIS: 1. Pulmonary embolism. 2. HIV. HPI - Consult Narrative Reason for consult: Consult for: 1. Pulmonary embolism. 2. HIV. 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 She denied any radiation or any other associated symptoms however she did say pain was felt more with deep inhalation. She denied any recent illness, trauma, airplane travel or leg pain. She lives with her and her children and remains pretty active. She does have a history of HIV and has been on Biktarvy consistently for 7 months. In the ER, chest CTA obtained showed small nonocclusive pulmonary emboli in the right lower lobe with bronchiectasis and mucus impaction in the posterior right lower lobe with an indeterminate irregular opacity in the inferior right upper lobe. Potassium was noted to be low at 3.2 all other labs within acceptable limits. Stable vital signs without hypoxia. She was given a dose of ceftriaxone azithromycin, potassium, ibuprofen and Tylenol. She was admitted for further management and treatment of community-acquired pneumonia and new onset pulmonary embolus. Review of Systems Review of Systems: Denies any recent fever chills or decrease in appetite respiratory denies any shortness of breath coverage production cardiovascular See HPI gastrointestinal denies any dysphagia abdominal pain nausea vomiting or diarrhea genitourinary denies any dysuria frequency or hematuria musculoskeletal denies any joint pain or swelling neuropsych denies any weakness or seizures all other systems reviewed are negative [facility] Medical History: HIV (human immunodeficiency virus infection) No acute medical problems Pertinent family history: Denies chest pain Surgical History: History of appendectomy Tubal ligation status Social History; Alcohol intake: never Patient Tobacco Use Status: Current everyday Tobacco user Use of substances other than those prescribed or required for medical reasons: Yes Substance Use Type: Marijuana. Review of Systems - Constitutional Reports system reviewed and no additional complaints, except as documented, Reports lack of energy, Reports malaise, Reports poor appetite, Reports weakness, Reports weight loss - Eyes Reports system reviewed and no additional complaints, except as documented - ENT Reports system reviewed and no additional complaints, except as documented - Cardiovascular Reports system reviewed and no additional complaints, except as documented, Reports shortness of breath, Reports shortness of breath with activity - Respiratory Reports no additional respiratory complaints - Gastrointestinal Reports system reviewed and no additional complaints, except as documented - Genitourinary Reports no additional female genitourinary complaints - Musculoskeletal Reports system reviewed and no additional complaints, except as documented - Integumentary/Breasts Skin/Breast: Reports no additional skin complaints - Neurologic Reports system reviewed and no additional complaints, except as documented - Psychiatric Reports system reviewed and no additional complaints, except as documented - Endocrine Reports no additional endocrine complaints - Hematologic/Lymphatic Reports system reviewed and no additional complaints, except as documented - Allergic/Immunologic Reports system reviewed and no additional complaints, except as documented Oncology Screenings - ECOG Performance Status ECOG Performance Status: 1 [facility] Medical History: Medical History (Last Updated 07/19/22 @ 14:21 by Tommy Patel MD) Bronchiectasis HIV (human immunodeficiency virus infection) No acute medical problems Functional capacity: uses cane/walker Patient : No Surgical History: Surgical History (Last Reviewed 07/18/22 @ 09:42 by Juanita Haas CNP) History of appendectomy Tubal ligation status Social History: Social History (Last Reviewed 07/18/22 @ 09:42 by Juanita Haas CNP) Living Situation History: Household Members: Spouse Household Members: Children Housing: Apartment Do you presently have visiting nurse or other home services: No Tobacco History: Patient Tobacco Use Status: Current someday Tobacco Tobacco use type: Cigarette Cigarettes Per Day: 5 Substance Use History: Substance Use Type: Marijuana Occupation Assessmet: service: No Home Medications and Allergies Current Medications: Current Medications Acetaminophen (Acetaminophen 325 Mg Tablet) 650 mg PO Q6H PRN PRN Reason: Pain, Mild (Pain Scale 1-3) Apixaban (Apixaban 5 Mg Tablet) 10 mg PO BID [facility] Stop: 07/24/22 21:01 Last Admin: 07/18/22 14:40 Dose: 10 mg Ceftriaxone Sodium 1 gm/ (Sodium Chloride) 50 mls @ 100 mls/hr IV Q24H [facility] Last Admin: 07/18/22 14:40 Dose: 100 mls/hr Azithromycin 500 mg/ Sodium (Chloride) 250 mls @ 125 mls/hr IV Q24H [facility] Last Admin: 07/18/22 14:59 Dose: 125 mls/hr Ondansetron HCl (Ondansetron Hcl 4 Mg/2 Ml Vial) 4 mg IVPUSH Q8H PRN PRN Reason: Nausea and Vomiting Pharmacy Consult (Consult Rx Perform Med Rec) 1 each MISCELLANE ONCE PRN PRN Reason: Consult order Sodium Chloride (0.9 % Sodium Chloride Flush 3 Ml Syringe) 3 ml IVFLUSH QSHIFT [facility] Home Medications Medication Instructions Recorded Confirmed Type albuterol sulfate 90 mcg/actuation 2 puff inhalation Q4H 07/18/22 07/18/22 History aerosol inhaler (ProAir HFA) bictegravir 50 mg-emtricitabine 1 tab PO DAILY 07/18/22 07/18/22 History 200 mg-tenofovir alafenam 25 mg tablet (Biktarvy) Allergies Allergy/AdvReac Type Severity Reaction Status Date / Time sulfamethoxazole Allergy Severe SWELLING Verified 07/18/22 09:02 [From BACTRIM] trimethoprim [From BACTRIM] Allergy Severe SWELLING Verified 07/18/22 09:02 Sulfa (Sulfonamide Allergy Unknown Unknown Verified 07/18/22 09:02 Antibiotics) Physical Exam Vital signs: Vital Signs Temp 97.8 F 07/18/22 09:09 Pulse 76 07/18/22 14:43 Resp 18 07/18/22 14:43 BP 107/65 07/18/22 14:43 Pulse Ox 100 07/18/22 14:43 O2 Del Method 07/18/22 14:43 Intake & Output 07/17/22 07/18/22 07/18/22 18:59 06:59 18:59 Other: Weight 68.5 kg Weight 68.5 kg - Constitutional Present: moderate distress - Routine HEENT Exam Head: Present: normocephalic ENT: Present: mucous membranes moist - Routine Neck Exam Present: supple - Routine Respiratory Exam Present: decreased breath sounds - Routine Cardiovascular Exam Cardiovascular: Present: S1, S2 - Routine Abdominal Exam Present: nontender - Routine Extremities Exam Present: normal inspection Hem/Onc Consult Result - Labs CBC & Chem 7: 07/19/22 06:24 07/19/22 06:24 Labs: Short CBC 07/18/22 Range/Units 09:59 WBC 5.5 (4.8-10.8) X10*3/uL Hgb 10.0 L (12.0-16.0) g/dl Hct 31.0 L (37.0-47.0) % Plt Count 325 (160-400) X10*3/uL BMP 07/18/22 09:59 Sodium 138 Potassium 3.2 L Chloride 105 Carbon Dioxide 25 BUN 9 Creatinine 0.67 Calcium 8.5 Liver Function 07/18/22 Range/Units 09:59 Total Bilirubin 0.3 (0.0-1.0) mg/dL AST 14 (5-31) U/L ALT 9 (0-31) U/L Alkaline Phosphatase 89 (39-117) U/L Albumin 3.4 L (3.5-5.0) g/dL Assessment and Plan Patient Active problem list reviewed?: Yes (1) Pulmonary embolism Status: Acute Assessment and plan: 31-year-old woman with history of HIV On Biktarvy.. She has been admitted with community-acquired pneumonia and pulmonary embolism CT scan also revealed Bronchiectasis with mucus impaction to the right lower lobe. She has been started on Rocephin and azithromycin. Supplemental oxygen as needed. Pulmonary embolism: Small nonocclusive pulmonary emboli in the right lower lobe. This is unprovoked. PLAN: She has been started on Eliquis. Will wait to proceed with hypercoaguleable workup, as an out patient. Check venous Doppler studies of lower extremities. This was done on 07/18 and r evealed: No DVT demonstrated in either lower extremity. I can see her as an outpatient over the next month or so. Thank you for the consult, I will follow along with you, Cc: - Time Spent With Patient Time Spent with Patient (in minutes): 30
[2022-07-18 17:09] LABS: Fibrinogen > 700 MG/DL (259-690)
[2022-07-18] MEDS: Acetaminophen 325 MG TABLET 650 MG PO (17:11)
[2022-07-18] MEDS: 0.9 % Sodium Chloride Flush 3 ML SYRINGE IVFLUSH ×2 (17:12→21:40)
[2022-07-18 19:01] VITALS: BP 109/59; PULSE 69; RESP 18; TEMP 36.4; O2SAT 99
[2022-07-18 20:09] LABS: UPreg QC Valid YES; Urine Pregnancy NEGATIVE (NEGATIVE)
[2022-07-18 23:44] VITALS: BP 105/59; PULSE 68; RESP 18; TEMP 36.2; O2SAT 99
[2022-07-19] VITALS (12 sets, daily range): BP systolic 104–128; BP diastolic 55–73; PULSE 76–98; RESP 16–19; TEMP 36.3–37.4; O2SAT 97–99
[2022-07-19] MEDS: Acetaminophen 325 MG TABLET 650 MG PO ×4 (03:23→23:30)
--- NOTE | 2022-07-19 04:50 | PC.NURSE ---
Pt c/o pain in her chest, non-radiating. Tylenol given and hot packs applied with some relief. Pt resting comfortably with eyes closed. Will continue to monitor.
[2022-07-19 06:35] LABS: MANUAL DIFF FLAG NO
[2022-07-19 06:53] LABS: Basophils Percent Auto 0.4 % (0-2); Eosinophils Absolute Auto 0.1 X10*3/uL (0.0-0.4); Eosinophils Percent Auto 1.7 % (0-4); Hemoglobin 9.9 g/dl (12.0-16.0); Imm Gran Abs Auto 0.02 X10*3/uL (0.00-0.03); Imm Gran Pct Auto 0.4 % (0.0-0.4); Lymphocytes Absolute Auto 0.7 X10*3/uL (1.2-4.9); Lymphocytes Percent Auto 13.4 % (20-40); Mean Corpuscular HGB Conc 31.9 g/dl (31.0-35.0); Mean Corpuscular Hemoglobin 29.4 pg (27.0-33.0); Mean Platelet Volume 10.5 fL (9.4-12.3); Monocytes Absolute Auto 0.4 X10*3/uL (0.1-1.2); Monocytes Percent Auto 8.1 % (2-11); Platelet Count 299 X10*3/uL (160-400); Red Blood Count 3.37 X10*6/uL (4.20-5.50); Red Cell Distribution Width 16.8 % (11.0-16.0); White Blood Count 5.2 X10*3/uL (4.8-10.8)
[2022-07-19 07:00] LABS: Anion Gap 12 (12-20); Blood Urea Nitrogen 8 mg/dL (9-16); Calcium 8.5 mg/dL (8.4-10.2); Carbon Dioxide 21 mmol/L (22-29); Chloride 110 mmol/L (96-108); Creatinine Clr Calc Pharmacy 131.1; Estimated Glomerular Filt Rate > 60; Glucose Random 100 mg/dL (60-115); Potassium 4.3 mmol/L (3.3-5.1); Sodium 139 mmol/L (135-145)
[2022-07-19] MEDS: Bictegrav/Emtricit/Tenofov Ala TABLET 1 TAB PO (09:40)
[2022-07-19] MEDS: Apixaban 5 MG TABLET 10 MG PO ×2 (09:40→20:11)
[2022-07-19] MEDS: 0.9 % Sodium Chloride Flush 3 ML SYRINGE IVFLUSH ×3 (09:40→20:11)
--- NOTE | 2022-07-19 09:44 | HO.PM.IMPN ---
Subjective Subjective Date of Service: 07/19/22 Review of Systems Follow up PE, PNA feeling better no hypoxia, productive cough Physical Exam Vital Signs: Vital Signs: Last Vital Signs Temp 98.5 F 07/19/22 07:21 Pulse 82 07/19/22 07:21 Resp 19 07/19/22 07:21 BP 104/67 07/19/22 07:21 Pulse Ox 98 07/19/22 07:21 O2 Del Method 07/19/22 07:21 BMI result Body Mass Index 25.1 Appearing in no acute distress lung sounds are clear to auscultation heart regular rate rhythm, clear S1, S2 positive bowel sounds, abdomen is soft, nontender neuro patient is alert x3, no focal deficits Objective Data Active Medications Acetaminophen (Acetaminophen 325 Mg Tablet) 650 mg PO Q6H PRN PRN Reason: Pain, Mild (Pain Scale 1-3) Last Admin: 07/19/22 09:40 Dose: 650 mg Documented By: MADELINE Albuterol Sulfate (Albuterol Sulfate 90 Mcg 8 Gm Inhaler) 2 puff INHALE Q4H [facility] Last Admin: 07/19/22 08:43 Dose: Not Given Documented By: AMY Non-Admin Reason: Previously Administered Apixaban (Apixaban 5 Mg Tablet) 10 mg PO BID [facility] Stop: 07/24/22 21:01 Last Admin: 07/19/22 09:40 Dose: 10 mg Documented By: MADELINE Bictegravir/Emtricitabine/Tenofovir (Bictegrav/Emtricit/Tenofov Ala Tablet) 1 tab PO DAILY [facility] Last Admin: 07/19/22 09:40 Dose: 1 tab Documented By: MADELINE Ceftriaxone Sodium 1 gm/ (Sodium Chloride) 50 mls @ 100 mls/hr IV Q24H [facility] Last Infusion: 07/18/22 17:33 Dose: 0 mls/hr Documented By: ADELINE Azithromycin 500 mg/ Sodium (Chloride) 250 mls @ 125 mls/hr IV Q24H [facility] Last Infusion: 07/18/22 17:33 Dose: 0 mls/hr Documented By: ADELINE Ondansetron HCl (Ondansetron Hcl 4 Mg/2 Ml Vial) 4 mg IVPUSH Q8H PRN PRN Reason: Nausea and Vomiting Pharmacy Consult (Consult Rx Perform Med Rec) 1 each MISCELLANE ONCE PRN PRN Reason: Consult order Sodium Chloride (0.9 % Sodium Chloride Flush 3 Ml Syringe) 3 ml IVFLUSH QSHIFT [facility] Last Admin: 07/19/22 09:40 Dose: 3 ml Documented By: MADELINE Labs CBC & Chem 7: 07/19/22 06:24 07/19/22 06:24 Labs: Laboratory Results - last 24 hr 07/18/22 07/18/22 07/18/22 09:59 09:59 09:59 MCV 92.0 MCH 29.7 MCHC 32.3 RDW 16.8 H Plt Count 325 MPV 10.5 Immature Gran % (Auto) Cancelled Neut % (Auto) Cancelled Lymph % (Auto) Cancelled [place] % (Auto) Cancelled Eos % (Auto) Cancelled Baso % (Auto) Cancelled Lymph # (Auto) Cancelled [place] # (Auto) Cancelled Eos # (Auto) Cancelled Baso # (Auto) Cancelled Abs Immat Gran (auto) Cancelled Absolute Neuts (auto) Cancelled Absolute Nucleated RBC 0.000 Nucleated RBC % (auto) 0.0 Neutrophils % (Manual) 84 H Band Neutrophils % 0 L Lymphocytes % (Manual) 12 L Monocytes % (Manual) 4 Abs Neuts (Manual) 4.6 Lymphocytes # (Manual) 0.7 L Monocytes # (Manual) 0.2 Platelet Estimate NORMAL Large Platelets PRESENT Plt Morphology Comment NOTED RBC Morphology NOTED Microcytosis 1+ (5-14) Fibrinogen D-Dimer High Sensitivty Anion Gap 11 L Estim Creat Clear Calc 119.3 Estimated GFR > 60 Random Glucose 93 Calcium 8.5 Magnesium 1.7 Total Bilirubin 0.3 AST 14 ALT 9 Alkaline Phosphatase 89 Total Protein 7.4 Albumin 3.4 L Lipase 17 Urine Test COVID-19 ([facility]I) Negative COVID-19 Clin Com See Note 07/18/22 07/18/22 07/18/22 09:59 15:59 18:45 MCV MCH MCHC RDW Plt Count MPV Immature Gran % (Auto) Neut % (Auto) Lymph % (Auto) [place] % (Auto) Eos % (Auto) Baso % (Auto) Lymph # (Auto) [place] # (Auto) Eos # (Auto) Baso # (Auto) Abs Immat Gran (auto) Absolute Neuts (auto) Absolute Nucleated RBC Nucleated RBC % (auto) Neutrophils % (Manual) Band Neutrophils % Lymphocytes % (Manual) Monocytes % (Manual) Abs Neuts (Manual) Lymphocytes # (Manual) Monocytes # (Manual) Platelet Estimate Large Platelets Plt Morphology Comment RBC Morphology Microcytosis Fibrinogen > 700 H D-Dimer High Sensitivty 366 Anion Gap Estim Creat Clear Calc Estimated GFR Random Glucose Calcium Magnesium Total Bilirubin AST ALT Alkaline Phosphatase Total Protein Albumin Lipase Urine Test NEGATIVE COVID-19 (SUMI) COVID-19 AOTMP Com 07/19/22 07/19/22 06:24 06:24 MCV 92.0 MCH 29.4 MCHC 31.9 RDW 16.8 H Plt Count 299 MPV 10.5 Immature Gran % (Auto) 0.4 Neut % (Auto) 76.0 H Lymph % (Auto) 13.4 L [place] % (Auto) 8.1 Eos % (Auto) 1.7 Baso % (Auto) 0.4 Lymph # (Auto) 0.7 L [place] # (Auto) 0.4 Eos # (Auto) 0.1 Baso # (Auto) 0.0 Abs Immat Gran (auto) 0.02 Absolute Neuts (auto) 4.0 Absolute Nucleated RBC 0.000 Nucleated RBC % (auto) 0.0 Neutrophils % (Manual) Band Neutrophils % Lymphocytes % (Manual) Monocytes % (Manual) Abs Neuts (Manual) Lymphocytes # (Manual) Monocytes # (Manual) Platelet Estimate Large Platelets Plt Morphology Comment RBC Morphology Microcytosis Fibrinogen D-Dimer High Sensitivty Anion Gap 12 Estim Creat Clear Calc 131.1 Estimated GFR > 60 Random Glucose 100 Calcium 8.5 Magnesium Total Bilirubin AST ALT Alkaline Phosphatase Total Protein Albumin Lipase Urine Test COVID-19 ([facility]I) COVID-19 Clin [place] Assessment and Plan (1) Pulmonary embolism: Status: Acute Plan 31-year-old woman with history of HIV admitted with community-acquired pneumonia and pulmonary embolism Pulmonary embolism Small nonocclusive pulmonary emboli in the right lower lobe Will start Eliquis 10 mg b.i.d. for 7 days and 5 mg b.i.d. Coagulopathy workup pending Discuss with Hematology plan for follow-up as an outpatient Negative lower extremity venous Doppler ultrasounds Community-acquired pneumonia Bronchiectasis with mucus impaction to the right lower lobe Start Rocephin and azithromycin Pulmonary recommends outpatient follow-up, flutter valve, chest physiotherapy Sputum culture pending Supplemental oxygen as needed HIV CD4 count pending On Biktarvy Asthma.? No exacerbation Continue albuterol as needed DVT prophylaxis with [facility] Attending Dr. Carr Full code Patient requires continued hospitalization due to or treatment of community-acquired pneumonia necessitating IV antibiotics with bronchiectasis and mucus impaction and new onset pulmonary embolus. Sputum culture and blood cultures are pending Quality Stroke Does the patient have a stroke diagnosis?: No VTE Prior VTE?: No VTE Risk Level:: Medical - moderate - high VTE Device Contraindication: Treatment Not Indicated VTE Drug Contraindication: N/A - Med Ordered
--- NOTE | 2022-07-19 10:11 | MHC.CM.PN ---
met with pt who is independent cm intervention is not indicated pt has own ride home pt is not covid gael
--- NOTE | 2022-07-19 10:48 | P.CDIC_ITS ---
CDI Concurrent Query Documentation Clarification: PHYSICIAN'S DOCUMENTATION REQUEST Date of Query: 07/19/22 1048 Patient Name: Nelida Hopkins Admit Date: 07/18/22 Dear Doctor, Please review the following and provide your response in the progress notes. Clinical Indicators: Risk Factors/Clinical Indicators/Treatments PN: Assessement/plan: Asthma, no exacerbation Continue Albuterol as needed. Based on the above, please clarify in the Progress Notes further specificity regarding the type and acuity of the asthma: Type: * Mild intermittent - less than 2x/week * Mild persistent - more than 2x/week but not daily * Moderate persistent - daily and may restrict physical activity * Severe persistent - throughout the day with frequent attacks, limiting activities * Exercise induced * Other ? please specify * Unable to determine Use of terms such as suspected, likely, concern for, or probable (associated with a specific diagnosis that is being evaluated, monitored, or treated as if it exists) are acceptable and can be coded in the inpatient setting, when documented at the time of discharge. Thank you, Bethany Coy [facility], CDIS Extension: [phone] Please use your independent medical judgment in providing your response. THIS QUERY IS PART OF THE PERMANENT MEDICAL RECORD Other Diagnosis: Mild intermittent
--- NOTE | 2022-07-19 10:48 | MHC.CDI.CONC ---
CDI Concurrent Query Documentation Clarification: PHYSICIAN'S DOCUMENTATION REQUEST Date of Query: 07/19/22 1048 Patient Name: Nelida Hopkins Admit Date: 07/18/22 Dear Doctor, Please review the following and provide your response in the progress notes. Clinical Indicators: Risk Factors/Clinical Indicators/Treatments PN: Assessement/plan: Asthma, no exacerbation Continue Albuterol as needed. Based on the above, please clarify in the Progress Notes further specificity regarding the type and acuity of the asthma: Type: Mild intermittent - less than 2x/week Mild persistent - more than 2x/week but not daily Moderate persistent - daily and may restrict physical activity Severe persistent - throughout the day with frequent attacks, limiting activities Exercise induced Other ? please specify Unable to determine Use of terms such as suspected, likely, concern for, or probable (associated with a specific diagnosis that is being evaluated, monitored, or treated as if it exists) are acceptable and can be coded in the inpatient setting, when documented at the time of discharge. Thank you, Bethany Coy [facility], CDIS Extension: [phone] Please use your independent medical judgment in providing your response. THIS QUERY IS PART OF THE PERMANENT MEDICAL RECORD Other Diagnosis: Mild intermittent
[2022-07-19] MEDS: Albuterol Sulfate 90 MCG 8 GM INHALER 2 PUFF INHALE ×3 (11:27→18:55)
[2022-07-19] MEDS: Azithromycin 500 MG in 0.9 % Sodium Chloride 250 ML 125 MG IV (14:12)
--- NOTE | 2022-07-19 14:16 | PM.CNPUL ---
History of Present Illness History of Present Illness Consult date: 07/19/22 Chief complaint: Pulmonary embolism Community Acquired Pneumonia Narrative: This is an inpatient pulmonary consultation. The patient is a 31-year-old woman presenting to the ER with complaints of substernal sharp chest pain that started yesterday while she was eating.? She denied any radiation or any other associated symptoms however she did say pain was felt more with deep inhalation.? She denied any recent illness, trauma, airplane travel or leg pain.? She lives with her and her children and remains pretty active.? She does have a history of HIV and has been on Biktarvy consistently for 7 months.? In the ER, chest CTA obtained showed small nonocclusive pulmonary emboli in the right lower lobe with bronchiectasis and mucus impaction in the posterior right lower lobe with an indeterminate irregular opacity in the inferior right upper lobe.? Potassium was noted to be low at 3.2 all other labs within acceptable limits, stable vital signs without hypoxia.? In the ER she was given a dose of ceftriaxone azithromycin, potassium, ibuprofen and Tylenol.? She will be admitted for further management and treatment of community-acquired pneumonia and new onset pulmonary embolus. The patient was also noted to have a local area of bronchiectasis primarily the right lower lobe. On further questioning she states that she has had a chronic cough for many years. She usually brings up yellowish and green phlegm. Moderate severity. She was not aware of the bronchiectasis. She is not aware of aspirating any foreign bodies previously. Review of Systems Review of Systems: Denies any recent fever chills or decrease in appetite respiratory denies any shortness of breath coverage production cardiovascular See HPI gastrointestinal denies any dysphagia abdominal pain nausea vomiting or diarrhea genitourinary denies any dysuria frequency or hematuria musculoskeletal denies any joint pain or swelling neuropsych denies any weakness or seizures all other systems reviewed are negative [facility] Past Medical History Medical History (Updated 07/19/22 @ 14:21 by Tommy aPtel MD) Bronchiectasis HIV (human immunodeficiency virus infection) No acute medical problems Functional capacity: uses cane/walker Surgical History Surgical History (Updated 07/18/22 @ 16:37 by Florencia Moura MD) History of appendectomy Tubal ligation status Social History Social History Household Members: Spouse and Children Housing: Apartment Do you presently have visiting nurse or other home services: No Alcohol intake: never Patient Tobacco Use Status: Current someday Tobacco user Tobacco use type: Cigarette Cigarettes Per Day: 5 Substance Use Type: Marijuana service: No Meds Allergies Allergy/AdvReac Type Severity Reaction Status Date / Time sulfamethoxazole Allergy Severe SWELLING Verified 07/18/22 09:02 [From BACTRIM] trimethoprim [From BACTRIM] Allergy Severe SWELLING Verified 07/18/22 09:02 Sulfa (Sulfonamide Allergy Unknown Unknown Verified 07/18/22 09:02 Antibiotics) Active Medications: Current Medications Acetaminophen (Acetaminophen 325 Mg Tablet) 650 mg PO Q6H PRN PRN Reason: Pain, Mild (Pain Scale 1-3) Last Admin: 07/19/22 09:40 Dose: 650 mg Albuterol Sulfate (Albuterol Sulfate 90 Mcg 8 Gm Inhaler) 2 puff INHALE Q4H [facility] Last Admin: 07/19/22 11:27 Dose: 2 puff Apixaban (Apixaban 5 Mg Tablet) 10 mg PO BID [facility] Stop: 07/24/22 21:01 Last Admin: 07/19/22 09:40 Dose: 10 mg Bictegravir/Emtricitabine/Tenofovir (Bictegrav/Emtricit/Tenofov Ala Tablet) 1 tab PO DAILY [facility] Last Admin: 07/19/22 09:40 Dose: 1 tab Ceftriaxone Sodium 1 gm/ (Sodium Chloride) 50 mls @ 100 mls/hr IV Q24H [facility] Last Infusion: 07/18/22 17:33 Dose: Infused Azithromycin 500 mg/ Sodium (Chloride) 250 mls @ 125 mls/hr IV Q24H [facility] Last Admin: 07/19/22 14:12 Dose: 125 mls/hr Ondansetron HCl (Ondansetron Hcl 4 Mg/2 Ml Vial) 4 mg IVPUSH Q8H PRN PRN Reason: Nausea and Vomiting Pharmacy Consult (Consult Rx Perform Med Rec) 1 each MISCELLANE ONCE PRN PRN Reason: Consult order Sodium Chloride (0.9 % Sodium Chloride Flush 3 Ml Syringe) 3 ml IVFLUSH QSHIFT [facility] Last Admin: 07/19/22 09:40 Dose: 3 ml Home Medications Medication Instructions Recorded Confirmed Last Taken Type albuterol sulfate 90 mcg/actuation 2 puff inhalation Q4H 07/18/22 07/18/22 Unknown History aerosol inhaler (ProAir HFA) bictegravir 50 mg-emtricitabine 1 tab PO DAILY 07/18/22 07/18/22 07/18/22 History 200 mg-tenofovir alafenam 25 mg tablet (Biktarvy) Physical Exam Vital Signs: Vital Signs: Last Vital Signs Temp 97.3 F 07/19/22 11:47 Pulse 76 07/19/22 11:47 Resp 18 07/19/22 11:47 BP 106/73 07/19/22 11:47 Pulse Ox 98 07/19/22 11:47 O2 Del Method 07/19/22 11:47 BMI result Body Mass Index 25.1 Appearance: Alert.?Oriented to person, place and time. No acute distress.?Normal affect. Eyes: Pupils equal, round and reactive to light.? ENT: Pharynx normal.?? Neck: Normal inspection.? Neck supple.?? CVS: Heart sounds normal. Normal heart rate and rhythm.? Pulses normal.?? Respiratory: No respiratory distress.? Lung sounds clear to auscultation bilaterally. Audible productive cough. Reproducible chest pain/tenderness on palpation of the anterior chest wall. ? Abdomen: Soft and non-tender. Normoactive bowel sounds. No pulsatile mass.?? Skin: Skin warm and dry.? Normal skin color.? Normal skin turgor.?? Extremities: No lower extremity edema.? Neuro: Moves all extremities spontaneously. Sensation intact bilaterally. No motor deficits. Ambulates with normal steady gait. Results Laboratory Findings CBC and BMP: 07/19/22 06:24 07/19/22 06:24 Abnormal lab findings: Abnormal Labs 07/18/22 07/18/22 07/18/22 09:59 09:59 15:59 RBC 3.37 L Hgb 10.0 L Hct 31.0 L RDW 16.8 H Neut % (Auto) Lymph % (Auto) Lymph # (Auto) Neutrophils % (Manual) 84 H Band Neutrophils % 0 L Lymphocytes % (Manual) 12 L Lymphocytes # (Manual) 0.7 L Fibrinogen > 700 H Potassium 3.2 L Chloride Carbon Dioxide Anion Gap 11 L BUN Albumin 3.4 L 07/19/22 07/19/22 06:24 06:24 RBC 3.37 L Hgb 9.9 L Hct 31.0 L RDW 16.8 H Neut % (Auto) 76.0 H Lymph % (Auto) 13.4 L Lymph # (Auto) 0.7 L Neutrophils % (Manual) Band Neutrophils % Lymphocytes % (Manual) Lymphocytes # (Manual) Fibrinogen Potassium Chloride 110 H Carbon Dioxide 21 L Anion Gap BUN 8 L Albumin Diagnostic Findings CT scan - chest: report reviewed and image reviewed Assessment and Plan (1) Pulmonary embolism: Status: Acute (2) CAP (community acquired pneumonia): Status: Acute (3) HIV (human immunodeficiency virus infection): Status: Acute (4) Bronchiectasis: Status: Acute Plan The patient is presenting with unprovoked pulmonary emboli. The etiology still not clear. In view of the unprovoked event usually treatment is recommended lifelong anticoagulation. However, her clots were small nonocclusive in nature. Recommendations: Continue antibiotics to complete a 10-14 day course in view of the bronchiectasis Continue Eliquis at least for 6 months. Would recommend rechecking D-dimer 4 weeks after she has completed the Eliquis to further risk assess potential recurrent clots CPT with flutter valve Will request follow-up with Pulmonary as an outpatient for additional testing and evaluation Procedures Date of Service Date of Service: 07/19/22
[2022-07-19 16:23] LABS: Absolute CD3 Count 574 cells/uL (840-3060); Absolute CD4 Count 46 cells/uL (490-1740); Absolute CD8 Count 482 cells/uL (180-1170); Absolute Lymphocytes 716 cells/uL (850-3900); Percent CD3 Cells 80 % (57-85); Percent CD4 Cells 6 % (30-61); Percent CD8 Cells 67 % (12-42)
[2022-07-19] MEDS: cefTRIAXone sodium 1 GM in 0.9 % Sodium Chloride 50 ML IV (18:04)
[2022-07-20 03:03] VITALS: BP 99/55; PULSE 74; RESP 15; TEMP 36.9; O2SAT 97
[2022-07-20 07:24] VITALS: BP 118/66; PULSE 87; RESP 20; TEMP 36.6; O2SAT 97
[2022-07-20] MEDS: 0.9 % Sodium Chloride Flush 3 ML SYRINGE IVFLUSH (09:20)
[2022-07-20] MEDS: Apixaban 5 MG TABLET 10 MG PO (09:20)
[2022-07-20] MEDS: Acetaminophen 325 MG TABLET 650 MG PO (09:20)
[2022-07-20] MEDS: Bictegrav/Emtricit/Tenofov Ala TABLET 1 TAB PO (09:20)
[2022-07-20 11:05] VITALS: BP 120/57; PULSE 89; RESP 20; TEMP 36.6; O2SAT 98
--- NOTE | 2022-07-20 11:43 | MHC.CM.PN ---
Per RN MALINA from [facility] discussion, Patient will be dc on Elisuis; CM has provided Patient with the voucher for a 30 day free trial of Eliquis.
[2022-07-20] MEDS: Albuterol Sulfate 90 MCG 8 GM INHALER 2 PUFF INHALE (12:01)
[2022-07-20 12:03] VITALS: PULSE 83; RESP 18; O2SAT 99
--- NOTE | 2022-07-20 12:33 | PM.DS ---
DS: Providers Provider Date of Service: 07/20/22 Date of admission: 07/18/22 14:00 Primary care physician: Felicita Melgar MD Consults: 07/18/22 13:58 Consult to Pulmonology Routine Consulting Provider: Latosha Patel Reason for consultation: Bronchiectasis with mucous plugging Has provider been notified: No 07/18/22 15:00 Consult to Hematology / Oncology Routine Consulting Provider: Florencia Moura Reason for consultation: new onset PE Has provider been notified: No DS: Diagnosis Discharge Diagnosis (1) Pulmonary embolism: Status: Acute (2) CAP (community acquired pneumonia): Status: Acute (3) HIV (human immunodeficiency virus infection): Status: Acute (4) Bronchiectasis: Status: Acute DS: Summary Hospital Course Hospital Course: from initial hpi: 31-year-old woman presenting to the ER with complaints of substernal sharp chest pain that started yesterday while she was eating.? She denied any radiation or any other associated symptoms however she did say pain was felt more with deep inhalation.? She denied any recent illness, trauma, airplane travel or leg pain.? She lives with her and her children and remains pretty active.? She does have a history of HIV and has been on Biktarvy consistently for 7 months.? In the ER, chest CTA obtained showed small nonocclusive pulmonary emboli in the right lower lobe with bronchiectasis and mucus impaction in the posterior right lower lobe with an indeterminate irregular opacity in the inferior right upper lobe.? Potassium was noted to be low at 3.2 all other labs within acceptable limits, stable vital signs without hypoxia.? In the ER she was given a dose of ceftriaxone azithromycin, potassium, ibuprofen and Tylenol.? She will be admitted for further management and treatment of community-acquired pneumonia and new onset pulmonary embolus. hospital course: Patient was admitted for small nonocclusive pulmonary embolism in the right lower lobe. She was started on Eliquis 10 mg b.i.d. which she will continue for 7 days total and then decrease to 5 mg b.i.d. for total of 6 months, D-dimer to be repeated to 4 months to determine duration. She also had community-acquired pneumonia complicated by bronchiectasis and mucus impaction of the right lower lobe. She was treated with ceftriaxone azithromycin with improvement she will continue 1 week of Ceftin and azithromycin. For HIV she was continued on Biktarvy. For her mild intermittent asthma she used albuterol as needed. Time Spent with Patient Time attestation: Total time spent providing and/or coordinating discharge services: Discharge coordination time: Greater than 30 minutes Quality: Safe Use of Opioids Does Pt have an Active Cancer Diagnosis on the Problem List?: No Quality: Stroke Does the patient have a stroke diagnosis?: No Physical Exam Vital Signs: Vital Signs: Last Vital Signs Temp 97.8 F 07/20/22 11:05 Pulse 83 07/20/22 12:03 Resp 18 07/20/22 12:03 BP 120/57 L 07/20/22 11:05 Pulse Ox 98 07/20/22 11:05 O2 Del Method 07/20/22 11:05 BMI result Body Mass Index 25.1 General: AO X 3, no acute distress Resp: CTA bilateral, no accessory muscles used CVS: S1,S2,RRR GI: soft, non tender, non distended Neuro: motor grossly intact, alert Psych: appropriate affect, appropriate insight DS: Data Data Completed and Pending Labs on day of discharge: Laboratory Results - last 24 hr 07/18/22 14:31 Lymphocyte Subset Cmmnt TNP Total Lymphocytes 716 L % CD3 Cells 80 Absolute CD3 Count 574 L % CD4 Cells 6 L Absolute CD4 Count 46 L CD4/CD8 Ratio 0.10 L % CD8 Cells 67 H Absolute CD8 Count 482 Preliminary micro results at discharge 07/18/22 14:31 Blood Culture - Preliminary Blood - Venous No growth after 24 hours. 07/18/22 14:31 Blood Culture - Preliminary Blood - Venous No growth after 24 hours. Discharge Plan Discharge Patient Disposition: Home, Self-Care Discharge Diagnosis: pe, pna Referrals: Felicita Melgar MD [Primary Care Provider] - 1 Week Tommy Patel MD [Physician] - 1 Week (Pe) Discharge Medications: New Eliquis 5 mg Tablet 10 mg PO BID Qty: 74 0RF Rx Instructions: 10mg bid for 4 more days then decrease to 5mg bid cefuroxime axetil 500 mg tablet 500 mg PO BID Qty: 14 0RF azithromycin 500 mg tablet 500 mg PO DAILY 7 Days Qty: 7 0RF Continued albuterol sulfate [ProAir HFA] 90 mcg/actuation HFA aerosol inhaler 2 puff inhalation Q4H Biktarvy 50-200-25 mg tablet 1 tab PO DAILY Discharge Orders: Discharge Order (Routine); Ordered 07/20/22 Ordered By: Ashish Combs Diet: Advance to usual diet Activity on Discharge: As tolerated Stand Alone Forms: Patient Portal Discharge page Care Plan Goals: recovery Health Concerns: pna, pe Plan of Treatment: 7 more days ceftin, azithro... eliquis 10mg bid for 4 more days, then 5mg bid for 6 months, repeat ddimer in 4 months Assessment: see above
--- NOTE | 2022-07-20 12:35 | MHC.CM.PN ---
Patient has been medically cleared for dc to home today, self care.
[2022-07-20 22:17] LABS: Protein C Activity 135 % (70-180); Protein S Activity rflx Tot&Fr 131 % (60-140)
[2022-08-13 23:36] LABS: Factor V Leiden NEGATIVE
== END 2022-07-20 13:35 | disposition home or self-care (01) | DRG 134 ==
LOC: HO.ED 09:54 → HO.EDOVER 14:25 → HO.IMC 14:32
PROVIDERS: Nurse Practitioner Family; Admitting Provider Nurse Practitioner Acute Care; Emergency Provider Emergency Medicine; PCP Internal Medicine; Visit Provider Internal Medicine
DX: I26.99 Other pulmonary embolism without acute cor pulmonale (principal); J18.9 Pneumonia, unspecified organism; J47.0 Bronchiectasis with acute lower respiratory infection; J45.20 Mild intermittent asthma, uncomplicated; F17.210 Nicotine dependence, cigarettes, uncomplicated; Z21 Asymptomatic human immunodeficiency virus [HIV] infection status; Z71.6 Tobacco abuse counseling; Z20.822 Contact with and (suspected) exposure to COVID-19; Z98.51 Tubal ligation status; Z88.2 Allergy status to sulfonamides; Z79.899 Other long term (current) drug therapy
CPT/HCPCS: 36415; 71046; 71275; 80048; 80053; 81025; 81241; 83690; 83735; 84484; 85007; 85025; 85027; 85302; 85303; 85305; 85306; 85379; 85384; 86359; 86360; 87040; 87070; 87205; 87635; 93005; 93970; 94640; 99285; J0456; J0696; Q9967

== ENCOUNTER 2022-09-30 18:32 | Emergency (ER) | payer OTHER, SELFPAY ==
--- NOTE | ~2022-09-30 | XR_ITS ---
EXAMINATION: XR CHEST CLINICAL INFORMATION: Chest pain COMPARISON: None TECHNIQUE: 2 views of the chest were obtained. FINDINGS: Nonspecific fullness of the left hilum. Focal density in the right upper lung measures 9 mm. XR/XR chest 2V . IMPRESSION: 1. Nonspecific fullness of the left hilum. Focal density in the right upper lung measures 9 mm. Recommend further evaluation with chest CT with contrast. 2. Nonspecific fullness of the left hilum. Attention on follow-up imaging is recommended.
--- NOTE | ~2022-09-30 | CT_ITS ---
EXAMINATION: CT ANGIOGRAM OF THE CHEST WITH AND WITHOUT CONTRAST (CT PULMONARY ANGIOGRAM FOR PE) CLINICAL INFORMATION: Chest pain and shortness of breath, prior PE on 07/18/2022. COMPARISON: CTA chest 07/18/2022. TECHNIQUE: Prior to contrast administration, noncontrast localization images were obtained. Subsequently, multidetector volumetric imaging was performed from the thoracic inlet to below the diaphragms following the administration of 80 mL Omnipaque 350 intravenous contrast. No contrast reaction reported Sagittal, coronal, and MIP oblique sagittal reformatted images were obtained on the CT workstation, uploaded to PACS, and reviewed. This CT examination was performed using dose optimization techniques as appropriate, variously including the following: *Automated exposure control *Adjustment of mA and/or kV according to patient size (this includes techniques or standardized protocols for targeted exams where dose is matched to indication/reason for exam; i.e. extremities or head) *Use of iterative reconstruction technique Total exam dose-length product 262 mGy-cm FINDINGS: QUALITY OF STUDY/CONTRAST BOLUS: Satisfactory. PULMONARY ARTERIES: No central or segmental pulmonary emboli. THORACIC AORTA: No aneurysm or dissection. LUNG: Again noted background of diffuse moderate bronchial wall thickening, scattered mucus impaction and cylindrical bronchiectasis in the right lower lobe. An irregular opacity measuring approximately 1.7 cm (9:268) abutting the anterior aspect of the right major fissure is unchanged. A 0.5 cm nodule in the anterolateral right upper lobe (9:199) is unchanged. No new focal airspace opacities or pulmonary nodules. The central airways are patent. PLEURA: No pleural effusion or pneumothorax. MEDIASTINUM: Normal heart size. No pericardial effusion. No evidence of septal bowing or right heart strain. Mediastinal and hilar lymphadenopathy is increased compared to 07/18/2022, for example a conglomerate of subcarinal lymph nodes measuring 1.6 cm in short axis (7:31) previously 1.2 cm, and a conglomerate of left suprahilar lymph nodes measuring 4.2 x 2.5 cm (7:27) disease previously 1.6 x 1.8 cm. CHEST WALL/AXILLA: No pathologically enlarged lymph nodes. OSSEOUS STRUCTURES: No acute or suspicious osseous abnormality. UPPER ABDOMEN: Hepatic steatosis. No reflux of contrast into the hepatic veins to suggest elevated right heart pressures. CT/CT angio chest PE protocol IMPRESSION: 1. No evidence of pulmonary embolism nor increased right-sided heart pressure. 2. Markedly worsening mediastinal and hilar lymphadenopathy compared to 07/18/2022. 3. Again noted bronchial wall thickening, mucus impaction and bronchiectasis, not significantly changed. 4. Scattered nodularities including an irregular approximately 1.7 cm nodule abutting the anterior aspect of the right major fissure are stable. VTE: negative
[2022-09-30 18:42] VITALS: BP 138/81; PULSE 119; RESP 20; TEMP 36.4; O2SAT 97; BMI 27.8
--- NOTE | 2022-09-30 18:48 | ECG_ITS ---
Test Reason : CHEST PAIN Blood Pressure : / mmHG Vent. Rate : 116 BPM Atrial Rate : 116 BPM P-R Int : 140 ms QRS Dur : 070 ms QT Int : 310 ms P-R-T Axes : 043 059 037 degrees QTc Int : 430 ms Sinus tachycardia Otherwise normal ECG When compared with ECG of 18-JUL-2022 09:17, Heart rate has increased Referred By: Nikki Garcia Electronically Signed By:JORJE AU MD
[2022-09-30 19:04] LABS: MANUAL DIFF FLAG NO
[2022-09-30 19:05] LABS: Basophils Percent Auto 0.2 % (0-2); Eosinophils Absolute Auto 0.1 X10*3/uL (0.0-0.4); Eosinophils Percent Auto 0.9 % (0-4); Hematocrit 27.1 % (37.0-47.0); Hemoglobin 8.7 g/dl (12.0-16.0); Imm Gran Abs Auto 0.03 X10*3/uL (0.00-0.03); Imm Gran Pct Auto 0.3 % (0.0-0.4); Lymphocytes Absolute Auto 1.5 X10*3/uL (1.2-4.9); Lymphocytes Percent Auto 17.5 % (20-40); Mean Corpuscular HGB Conc 32.1 g/dl (31.0-35.0); Mean Corpuscular Hemoglobin 27.3 pg (27.0-33.0); Mean Platelet Volume 9.4 fL (9.4-12.3); Monocytes Absolute Auto 0.6 X10*3/uL (0.1-1.2); Monocytes Percent Auto 7.3 % (2-11); Neutrophils Absolute Auto 6.5 x10*3/uL (2.0-8.3); Neutrophils Percent Auto 73.8 % (45-73); Platelet Count 351 X10*3/uL (160-400); Red Blood Count 3.19 X10*6/uL (4.20-5.50); Red Cell Distribution Width 19.9 % (11.0-16.0); White Blood Count 8.8 X10*3/uL (4.8-10.8)
[2022-09-30 19:26] LABS: Alanine Aminotransferase 29 U/L (0-31); Albumin Level 3.7 g/dL (3.5-5.0); Alkaline Phosphatase 103 U/L (39-117); Anion Gap 15 (12-20); Aspartate Amino Transferase 26 U/L (5-31); Bilirubin Total 0.3 mg/dL (0.0-1.0); Blood Urea Nitrogen 24 mg/dL (9-16); Calcium 8.6 mg/dL (8.4-10.2); Carbon Dioxide 23 mmol/L (22-29); Chloride 103 mmol/L (96-108); Creatinine Clr Calc Pharmacy 89.1; Estimated Glomerular Filt Rate > 60; Glucose Random 95 mg/dL (60-115); Magnesium 1.7 mg/dL (1.6-2.6); Potassium 4.2 mmol/L (3.3-5.1); Sodium 137 mmol/L (135-145)
[2022-09-30 19:31] LABS: Troponin-I High Sensitivity < 3.5 ng/L (<3.5-17.0)
[2022-09-30 21:52] VITALS: BP 136/73; PULSE 113; RESP 20; O2SAT 97
--- NOTE | 2022-09-30 21:53 | ECG_ITS ---
Test Reason : CHEST PAIN Blood Pressure : / mmHG Vent. Rate : 104 BPM Atrial Rate : 104 BPM P-R Int : 148 ms QRS Dur : 070 ms QT Int : 322 ms P-R-T Axes : 045 067 045 degrees QTc Int : 423 ms Sinus tachycardia Otherwise normal ECG When compared with ECG of 30-SEP-2022 19:13, No significant change was found Referred By: Marlee Iverson Electronically Signed By:JORJE AU MD
[2022-09-30 22:42] VITALS: BP 111/59; PULSE 112; RESP 15; TEMP 37.2; O2SAT 97
[2022-09-30 22:54] LABS: INTERNATIONAL NORM RATIO 0.9 (0.9-1.1); Prothrombin Time 9.9 SEC (10.0-13.1)
--- NOTE | 2022-09-30 22:55 | ED.CHESTPAIN ---
HPI - Chest Pain General Chief Complaint: Chest Pain Stated Complaint: Chest Pain Time Seen by Provider: 09/30/22 22:21 Source: patient Mode of arrival: ambulatory Limitations: no limitations History of Present Illness HPI narrative: Patient comes to the emergency room complaining of bilateral chest pain for over a month. Patient is known to have history of HIV, MAC avium pneumonia. On patient's chart, it says the patient was diagnosed with pulmonary embolism and was prescribed Eliquis. However, patient states that they did further tests and [facility], even a biopsy was done, she was told that she does not have pulmonary embolisms and she is not taking Eliquis. I received a phone call from her primary care physician/ID, there is a concern that patient may have lymphoma given the previous CT scan reads. Patient states that she is not significantly short of breath. Only complaining of ongoing chest pain Related Data Home Medications Medication Instructions Recorded Confirmed albuterol sulfate 90 mcg/actuation 2 puff inhalation Q4H 07/18/22 07/18/22 aerosol inhaler (ProAir HFA) bictegravir 50 mg-emtricitabine 1 tab PO DAILY 07/18/22 07/18/22 200 mg-tenofovir alafenam 25 mg tablet (Biktarvy) Previous Rx's Medication Instructions Recorded apixaban 5 mg tablet (Eliquis) 10 mg PO BID #74 tabs 07/20/22 azithromycin 500 mg tablet 500 mg PO DAILY 7 days #7 tabs 07/20/22 cefuroxime axetil 500 mg tablet 500 mg PO BID #14 tabs 07/20/22 tramadol 50 mg tablet 50 mg PO BID PRN pain #7 tabs 10/01/22 Allergies Allergy/AdvReac Type Severity Reaction Status Date / Time sulfamethoxazole Allergy Severe SWELLING Verified 07/18/22 09:02 [From BACTRIM] trimethoprim [From BACTRIM] Allergy Severe SWELLING Verified 07/18/22 09:02 Sulfa (Sulfonamide Allergy Unknown Unknown Verified 07/18/22 09:02 Antibiotics) Review of Systems Review of Systems: Constitutional : No Weight loss, No Fever, No Chills, No Night Sweats, No Fatigue, No Malaise ENT/Mouth : No Hearing loss, No Ear Pain, No Nasal Congestion, No Sinus Pain, No Hoarseness, No sore throat, No Rhinorrhea, No Swallowing Difficulty Eyes: No Eye Pain, No Swelling, No Redness, No Foreign Body, No Discharge, No Vision Changes Cardiovascular : Complaining of chronic bilateral chest pain over a month, complaining of mild chronic shortness of breath, No Dyspnea on Exertion, No Orthopnea, No Edema, No Palpitations Respiratory : No Cough, No Sputum, No Wheezing, No Smoke Exposure, No Dyspnea Gastrointestinal : No Nausea, No Vomiting, No Diarrhea, No Constipation, No abdominal Pain, No Hematochezia, No Melena Genitourinary : no irregular bleeding, No Dysuria, No Urinary Frequency, No Hematuria, No Urinary Incontinence, No Urgency, No Flank Pain, No Urinary Flow Changes, No Hesitancy Musculoskeletal : No joint pain, No Myalgias, No Joint Swelling Skin : No Skin Lesions, No rash Neuro : No Weakness, No Numbness, No Paresthesias, No Loss of Consciousness, No Dizziness, No Headache Psych : No Anxiety/Panic, No Depression, No SI/HI/AH/VH, No Social Issues, Heme/Lymph: No Bruising, No Bleeding,No Lymphadenopathy Endocrine : No Polyuria, No Polydipsia, No Temperature Intolerance PMFSH Past Medical History Medical History Bronchiectasis HIV (human immunodeficiency virus infection) No acute medical problems Surgical History History of appendectomy Tubal ligation status Social History Social History Household Members: Spouse and Children Housing: Apartment Do you presently have visiting nurse or other home services: No Alcohol intake: never Patient Tobacco Use Status: Current someday Tobacco user Tobacco use type: Cigarette Substance Use Type: Marijuana Advance Directives: No Advance Directives Information Provided: No service: No Physical Exam Vital Signs: Vital Signs: Last Vital Signs Temp 98.8 F 10/01/22 00:00 Pulse 110 H 10/01/22 00:00 Resp 16 10/01/22 00:00 BP 115/60 10/01/22 00:00 Pulse Ox 96 10/01/22 00:00 O2 Del Method 10/01/22 00:00 BMI result Body Mass Index 27.8 Const: Other: Appearance: Alert. Oriented X3. No acute distress. Eyes: Pupils equal, round and reactive to light. ENT: Pharynx normal. Neck: Normal inspection. Neck supple. No lymph nodes noted. No crepitus CVS: Normal heart rate and rhythm. Pulses normal. Normal S1 and S2 Respiratory: No respiratory distress. Bilateral rhonchi, good air movement, oxygen saturation 97% on room air, No Wheezing. No rales Abdomen: Soft and nontender. No rigidity. No distention. Skin: Skin warm and dry. Normal skin color. Normal skin turgor. Extremities: No lower extremity edema. No Lacerations. No Rash Neuro: Oriented X 3. No motor deficit. No sensory deficit. Moving all extremities. No slurred speech. CN 2 through 12 grossly intact Psych: calm, cooperative, normal affect Course Course Course Narrative: Patient's labs and imaging pending. Patient given IV Toradol. Patient confirmed that she is not taking blood thinners Patient is tachycardic, has chest pain, significant lung pathologies. We will go ahead and get a CTA We received records from [facility]. Patient was admitted on 09/11/2022 and discharged on 09/14/2022. Patient with a history of HIV, recent CD4 count of 90 presented to [facility] with shortness of breath and chest pain, with history of similar admission on 08/08/2022 to the same hospital. Patient was discharged with a history of HIV, shortness of breath, sirs, aids, mediastinal adenopathy, chest pain. In this hospitalization, a CTA was repeated, showed no blood clots/pulmonary embolisms and Eliquis was discontinued. Patient has been treated for MAC pneumonitis, she already stopped INH and B6, remained on azithromycin, ethambutol. Rifabutin was stopped secondary to arthralgias, since September 06 patient has been on azithromycin and ethambutol Patient's CT scan shows worsening lymphadenopathy. I discussed the patient with Dr. Morales, at this time, based on labs and imaging, the patient does not meet criteria for admission. Recommendations: Follow outpatient with pulmonology and with Heme-Onc. Patient states that she has still bilateral chest pain, Toradol did not help, patient given 1 dose of 4 mg IV morphine. Patient's EKG shows sinus tachycardia, heart rate 104, no ST segment depression or elevation, no tube in vision, QTC 423 Medications Administered Discontinued Medications Generic Name Dose Route Start Last Admin Trade Name Osvaldo PRN Reason Stop Dose Admin Iohexol 75 ml 10/01/22 00:17 10/01/22 00:18 Iohexol 350 Mg/Ml 100 Ml Infus..Btl IV 10/01/22 00:18 75 ml ONCE ONE Administration Ketorolac Tromethamine 30 mg 09/30/22 23:02 09/30/22 23:23 Ketorolac Tromethamine 30 Mg/Ml Vial IVPUSH 09/30/22 23:03 30 mg ONCE ONE Administration MDM - Chest Pain Lab Data Result diagrams: 09/30/22 18:59 09/30/22 18:58 Labs: Lab Results 09/30/22 09/30/22 09/30/22 Range/Units 18:58 18:59 18:59 WBC 8.8 (4.8-10.8) X10*3/uL RBC 3.19 L (4.20-5.50) X10*6/uL Hgb 8.7 L (12.0-16.0) g/dl Hct 27.1 L (37.0-47.0) % MCV 85.0 (80.0-98.0) fL MCH 27.3 (27.0-33.0) pg MCHC 32.1 (31.0-35.0) g/dl RDW 19.9 H (11.0-16.0) % Plt Count 351 (160-400) X10*3/uL MPV 9.4 (9.4-12.3) fL Immature Gran % (Auto) 0.3 (0.0-0.4) % Neut % (Auto) 73.8 H (45-73) % Lymph % (Auto) 17.5 L (20-40) % Hooker % (Auto) 7.3 (2-11) % Eos % (Auto) 0.9 (0-4) % Baso % (Auto) 0.2 (0-2) % Lymph # (Auto) 1.5 (1.2-4.9) X10*3/uL Hooker # (Auto) 0.6 (0.1-1.2) X10*3/uL Eos # (Auto) 0.1 (0.0-0.4) X10*3/uL Baso # (Auto) 0.0 (0.0-0.2) X10*3/uL Abs Immat Gran (auto) 0.03 (0.00-0.03) X10*3/uL Absolute Neuts (auto) 6.5 (2.0-8.3) x10*3/uL Absolute Nucleated RBC 0.000 (0.0-0.012) X10*3/uL Nucleated RBC % (auto) 0.0 (0.0-0.2) /100WBC PT (10.0-13.1) SEC INR (0.9-1.1) Sodium 137 (135-145) mmol/L Potassium 4.2 (3.3-5.1) mmol/L Chloride 103 (96-108) mmol/L Carbon Dioxide 23 (22-29) mmol/L Anion Gap 15 (12-20) BUN 24 H D (9-16) mg/dL Creatinine 0.94 (0.5-1.4) mg/dL Estim Creat Clear Calc 89.1 Estimated GFR > 60 Random Glucose 95 (60-115) mg/dL Lactic Acid (0.5-2.0) mmol/L Calcium 8.6 (8.4-10.2) mg/dL Magnesium 1.7 (1.6-2.6) mg/dL Total Bilirubin 0.3 (0.0-1.0) mg/dL Direct Bilirubin (0.0-0.5) mg/dL AST 26 D (5-31) U/L ALT 29 (0-31) U/L Alkaline Phosphatase 103 (39-117) U/L Troponin I High Sens < 3.5 (<3.5-17.0) ng/L B-Natriuretic Peptide (<100) pg/mL Total Protein 7.0 (6.5-8.0) g/dL Albumin 3.7 (3.5-5.0) g/dL Beta HCG, Quant mIU/mL COVID-19 (SUMI) (Negative) COVID-19 Clin Com 09/30/22 09/30/22 09/30/22 Range/Units 22:37 22:37 22:37 WBC (4.8-10.8) X10*3/uL RBC (4.20-5.50) X10*6/uL Hgb (12.0-16.0) g/dl Hct (37.0-47.0) % MCV (80.0-98.0) fL MCH (27.0-33.0) pg MCHC (31.0-35.0) g/dl RDW (11.0-16.0) % Plt Count (160-400) X10*3/uL MPV (9.4-12.3) fL Immature Gran % (Auto) (0.0-0.4) % Neut % (Auto) (45-73) % Lymph % (Auto) (20-40) % Hooker % (Auto) (2-11) % Eos % (Auto) (0-4) % Baso % (Auto) (0-2) % Lymph # (Auto) (1.2-4.9) X10*3/uL Hooker # (Auto) (0.1-1.2) X10*3/uL Eos # (Auto) (0.0-0.4) X10*3/uL Baso # (Auto) (0.0-0.2) X10*3/uL Abs Immat Gran (auto) (0.00-0.03) X10*3/uL Absolute Neuts (auto) (2.0-8.3) x10*3/uL Absolute Nucleated RBC (0.0-0.012) X10*3/uL Nucleated RBC % (auto) (0.0-0.2) /100WBC PT 9.9 L (10.0-13.1) SEC INR 0.9 (0.9-1.1) Sodium (135-145) mmol/L Potassium (3.3-5.1) mmol/L Chloride (96-108) mmol/L Carbon Dioxide (22-29) mmol/L Anion Gap (12-20) BUN (9-16) mg/dL Creatinine (0.5-1.4) mg/dL Estim Creat Clear Calc Estimated GFR Random Glucose (60-115) mg/dL Lactic Acid 1.2 (0.5-2.0) mmol/L Calcium (8.4-10.2) mg/dL Magnesium (1.6-2.6) mg/dL Total Bilirubin 0.3 (0.0-1.0) mg/dL Direct Bilirubin < 0.2 (0.0-0.5) mg/dL AST 21 (5-31) U/L ALT 30 (0-31) U/L Alkaline Phosphatase 100 (39-117) U/L Troponin I High Sens (<3.5-17.0) ng/L B-Natriuretic Peptide (<100) pg/mL Total Protein 6.7 (6.5-8.0) g/dL Albumin 3.6 (3.5-5.0) g/dL Beta HCG, Quant < 2 mIU/mL COVID-19 (SUMI) (Negative) COVID-19 Clin Com 09/30/22 09/30/22 09/30/22 Range/Units 22:37 22:37 22:39 WBC (4.8-10.8) X10*3/uL RBC (4.20-5.50) X10*6/uL Hgb (12.0-16.0) g/dl Hct (37.0-47.0) % MCV (80.0-98.0) fL MCH (27.0-33.0) pg MCHC (31.0-35.0) g/dl RDW (11.0-16.0) % Plt Count (160-400) X10*3/uL MPV (9.4-12.3) fL Immature Gran % (Auto) (0.0-0.4) % Neut % (Auto) (45-73) % Lymph % (Auto) (20-40) % Hooker % (Auto) (2-11) % Eos % (Auto) (0-4) % Baso % (Auto) (0-2) % Lymph # (Auto) (1.2-4.9) X10*3/uL Hooker # (Auto) (0.1-1.2) X10*3/uL Eos # (Auto) (0.0-0.4) X10*3/uL Baso # (Auto) (0.0-0.2) X10*3/uL Abs Immat Gran (auto) (0.00-0.03) X10*3/uL Absolute Neuts (auto) (2.0-8.3) x10*3/uL Absolute Nucleated RBC (0.0-0.012) X10*3/uL Nucleated RBC % (auto) (0.0-0.2) /100WBC PT (10.0-13.1) SEC INR (0.9-1.1) Sodium (135-145) mmol/L Potassium (3.3-5.1) mmol/L Chloride (96-108) mmol/L Carbon Dioxide (22-29) mmol/L Anion Gap (12-20) BUN (9-16) mg/dL Creatinine (0.5-1.4) mg/dL Estim Creat Clear Calc Estimated GFR Random Glucose (60-115) mg/dL Lactic Acid (0.5-2.0) mmol/L Calcium (8.4-10.2) mg/dL Magnesium (1.6-2.6) mg/dL Total Bilirubin (0.0-1.0) mg/dL Direct Bilirubin (0.0-0.5) mg/dL AST (5-31) U/L ALT (0-31) U/L Alkaline Phosphatase (39-117) U/L Troponin I High Sens < 3.5 (<3.5-17.0) ng/L B-Natriuretic Peptide 11 (<100) pg/mL Total Protein (6.5-8.0) g/dL Albumin (3.5-5.0) g/dL Beta HCG, Quant mIU/mL COVID-19 (SUMI) Negative (Negative) COVID-19 Clin Com See Note Imaging Data CTA: Radiologist's impression: FINDINGS: QUALITY OF STUDY/CONTRAST BOLUS: Satisfactory. PULMONARY ARTERIES: No central or segmental pulmonary emboli.? THORACIC AORTA: No aneurysm or dissection. LUNG: Again noted background of diffuse moderate bronchial wall thickening, scattered mucus impaction and cylindrical bronchiectasis in the right lower lobe. An irregular opacity measuring approximately 1.7 cm (9:268) abutting the anterior aspect of the right major fissure is unchanged. A 0.5 cm nodule in the anterolateral right upper lobe (9:199) is unchanged. No new focal airspace opacities or pulmonary nodules. The central airways are patent. PLEURA: No pleural effusion or pneumothorax. MEDIASTINUM: Normal heart size. No pericardial effusion. No evidence of septal bowing or right heart strain. Mediastinal and hilar lymphadenopathy is increased compared to 07/18/2022, for example a conglomerate of subcarinal lymph nodes measuring 1.6 cm in short axis (7:31) previously 1.2 cm, and a conglomerate of left suprahilar lymph nodes measuring 4.2 x 2.5 cm (7:27) disease previously 1.6 x 1.8 cm. CHEST WALL/AXILLA: No pathologically enlarged lymph nodes. OSSEOUS STRUCTURES: No acute or suspicious osseous abnormality.? UPPER ABDOMEN: Hepatic steatosis.? No reflux of contrast into the hepatic veins to suggest elevated right heart pressures. CT/CT angio chest PE protocol IMPRESSION: 1.? No evidence of pulmonary embolism nor increased right-sided heart pressure. 2.? Markedly worsening mediastinal and hilar lymphadenopathy compared to 07/18/2022. 3.? Again noted bronchial wall thickening, mucus impaction and bronchiectasis, not significantly changed. 4.? Scattered nodularities including an irregular approximately 1.7 cm nodule abutting the anterior aspect of the right major fissure are stable. ? VTE: negative Discharge Plan Discharge Clinical Impression: Mediastinal adenopathy Patient Disposition: Home, Self-Care Instructions: Lymphadenopathy (ED) Additional Instructions: Please follow-up with your primary care physician tomorrow. Please call pulmonology and Hematology/Oncology for an appointment. Your primary care physician may help to expedite the process. If you have any worsening or new symptoms, please return to the emergency room or call 911 Prescriptions: New tramadol 50 mg tablet 50 mg PO BID PRN (Reason: pain) Qty: 7 0RF No Action albuterol sulfate [ProAir HFA] 90 mcg/actuation HFA aerosol inhaler 2 puff inhalation Q4H Biktarvy 50-200-25 mg tablet 1 tab PO DAILY Eliquis 5 mg Tablet 10 mg PO BID Qty: 74 0RF Rx Instructions: 10mg bid for 4 more days then decrease to 5mg bid cefuroxime axetil 500 mg tablet 500 mg PO BID Qty: 14 0RF azithromycin 500 mg tablet 500 mg PO DAILY 7 Days Qty: 7 0RF
[2022-09-30 22:58] LABS: COVID-19 Test Negative (Negative)
[2022-09-30 23:00] LABS: Lactic Acid 1.2 mmol/L (0.5-2.0)
[2022-09-30 23:06] LABS: Alanine Aminotransferase 30 U/L (0-31); Albumin Level 3.6 g/dL (3.5-5.0); Alkaline Phosphatase 100 U/L (39-117); Aspartate Amino Transferase 21 U/L (5-31); Bilirubin Direct < 0.2 mg/dL (0.0-0.5); Bilirubin Total 0.3 mg/dL (0.0-1.0); Total Protein 6.7 g/dL (6.5-8.0)
[2022-09-30 23:09] LABS: B Type Natriuretic Peptide 11 pg/mL (<100); Troponin-I High Sensitivity < 3.5 ng/L (<3.5-17.0)
[2022-09-30 23:12] LABS: HCG Quantitative < 2 mIU/mL
[2022-09-30] MEDS: Ketorolac Tromethamine 30 MG/ML VIAL IVPUSH (23:23)
[2022-10-01] VITALS: BP 115/60; PULSE 110; RESP 16; TEMP 37.1; O2SAT 96
[2022-10-01] MEDS: iohexoL 350 MG/ML 100 ML INFUS..BTL 75 ML IV (00:18)
[2022-10-01 01:05] LABS: Appearance Urine Clear; Color Urine Yellow; Glucose Urine UA Negative (Negative); Leukocyte Esterase Urine Negative (Negative); Nitrite Urine Negative (Negative); Specific Gravity - Urine >= 1.030 (1.005-1.025); Urine Blood Negative (Negative); Urine Ketones Negative (Negative); Urine Protein Negative (Neg-Trace)
[2022-10-01] MEDS: Morphine Sulfate 4 MG/ML CARTRIDGE IVPUSH (01:31)
== END 2022-10-01 01:42 | disposition home or self-care (01) ==
PROVIDERS: Physician Assistant Medical; Emergency Provider Emergency Medicine; PCP Internal Medicine
DX: R59.0 Localized enlarged lymph nodes (principal); R07.89 Other chest pain; R06.02 Shortness of breath; F17.210 Nicotine dependence, cigarettes, uncomplicated; Z71.6 Tobacco abuse counseling; Z20.822 Contact with and (suspected) exposure to COVID-19; Z79.899 Other long term (current) drug therapy
CPT/HCPCS: 36415; 71046; 71275; 80053; 80076; 81003; 83605; 83735; 83880; 84484; 84702; 85025; 85610; 87635; 93005; 96374; 96375; 99284; J1885; J2270; Q9967

== ENCOUNTER 2023-02-13 07:26 | Emergency (ER) | payer OTHER, SELFPAY ==
--- NOTE | ~2023-02-13 | XR_ITS ---
EXAMINATION: XR CHEST CLINICAL INFORMATION: Congestion. Chest pressure. COMPARISON: Chest x-ray and CTA chest 09/30/2022 TECHNIQUE: Frontal view of the chest was obtained. FINDINGS: Cardiac silhouette is normal in size. The lungs are well aerated. There is no lobar consolidation. No pleural effusion or pneumothorax. Similar subtle linear opacity of the right lateral midlung which is nonspecific but likely guest services representative of atelectasis identified on recent CT imaging. XR/XR chest 1V IMPRESSION: No acute pulmonary pathology.
[2023-02-13 07:33] VITALS: BP 114/76; PULSE 76; RESP 16; TEMP 36.8; O2SAT 98; BMI 30.1
--- OUTSIDE RECORDS SUMMARY | 2023-02-13 07:57 | XMS_ITS | Continuity of Care Document ---
Author Name Unknown Organization [facility] Address [address] [place] [address]- Care Team Providers Care Tobacco Baler Name Role Phone Felicita Melgar MD, I Primary Care Physician [phone] Encounter [facility] Date(s): 08/16/22 - 09/15/[address] [address]- Allergies, Adverse Reactions, Alerts Substance Reaction Severity Status doxycycline itchy rash Active dapsone 09/2019 developed rash on dapsone/trimeth oprim Active rifabutin severe arthralgias Active Bactrim Dairy food intake Active Immunizations Given and Recorded Vaccine Date Status Refusal Reason tetanus/diphtheria/pertussis, acel(Tdap) 02/16/17 Given tetanus/diphtheria/pertussis, acel(Tdap) 12/24/14 Recorded pneumococcal 13-valent vaccine 12/24/14 Recorded influenza virus vaccine, inactivated 12/24/14 Berto rded Medications albuterol 0.083% inhalation solution 3 mL = 2.5 mg, Inhalation, Every 4 hours, PRN Wheezing/Shortness of Breath, for use w/ nebulizer, #50 each, 2 Refills, Maintenance, 08/11/22 18:22:00 EDT, Solution, [id number], Partial fill upon patient request if the prescription is for a sc... Start Date: 08/11/22 Status: Ordered atovaquone 750 mg/5 mL oral suspension 10 mL = 1,500 mg, By Mouth, Daily, for 30 days, # 300 mL, 1 Refills, Acute 10/10/22 16:31:00 EST, 08/11/22 16:31:00 EDT, Suspension, [id number], Partial fill upon patient request if the prescription is for a schedule II opioid drug., 160, cm,... Start Date: 08/11/22 Stop Date: 10/10/22 Status: Ordered azithromycin 500 mg oral tablet = 500 mg, By Mouth, Daily, for 30 days, # 30 tablet, 1 Refills, Acute 12/09/22 12:42:00 EST, 10/10/22 12:42:00 EST, Tablet, [id number], Partial fill upon patient request if the prescription is for a schedule II opioid drug., 160, cm, 08/11/22... Start Date: 10/10/22 Stop Date: 12/09/22 Status: Ordered Biktarvy oral tablet 1 tablet, By Mouth, Daily, pharmacy: please renew bikarvy. discontinue dolutegravir/truvada., # 30 tablet, 11 Refills, Maintenance, 09/06/22 17:29:00 EDT, Tablet, [facility], Partialfill upon patient request if the prescription is... Start Date: 09/06/22 Status: Ordered dextromethorphan-guaifenesin 10 mg-100 mg/10 mL oral liquid 5 mL, By Mouth, Every 4 hours, PRN Cough, for 30 days, # 120 mL, 2 Refills, Acute 11/09/22 18:20:00EST, 08/11/22 18:20:00 EDT, Liquid, [id number], Partial fill upon patient request if the prescription is for a schedule II opioid drug., 5 mL B... Start Date: 08/11/22 Stop Date: 11/09/22 Status: Ordered docusate-senna 50 mg-8.6 mg oral capsule 2 capsule, By Mouth, Daily at bedtime, PRN Constipation, for 30 days, # 60 capsule, 2 Refills, Acute 11/09/22 18:20:00 EST, 08/11/22 18:20:00 EDT, Capsule, [id number], Partial fill upon patient request if the prescription is for a schedule II... Start Date: 08/11/22 Stop Date: 11/09/22 Status: Ordered ethambutol 400 mg oral tablet 3 tablet = 1,200 mg, By Mouth, Daily, for 30 days, # 90 tablet, 2 Refills, Acute 11/10/22 9:53:00 EST, 08/12/22 9:53:00 EDT, Tablet, [facility], Partial fill upon patient request if the prescription is for a schedule II opioid drug.,... Start Date: 08/12/22 Stop Date: 11/10/22 Status: Ordered gabapentin 100 mg oral capsule 100 mg, 1, capsule, By Mouth, 3 times a day, # 90 capsule, Refills 1, Tot. Refills 1, Maintenance, 08/11/22 16:31:00 EDT, Route to Pharmacy Electronically, [id number], Partial fill upon patient request if the prescription is for a schedule II... Start Date: 08/11/22 Stop Date: 10/10/22 Status: Ordered MiraLax oral powder for reconstitution = 17 Gm, By Mouth, Daily, PRN Constipation, for 30 days, dissolve in water before taking, # 527 Gm,2 Refills, Acute 11/09/22 18:20:00 EST, 08/11/22 18:20:00 EDT, REC Powder, [id number], Partial fill upon patient request if the prescription is... Start Date: 08/11/22 Stop Date: 11/09/22 Status: Ordered Nebulizer/Compressor See Instructions, # 1 each, Maintenance, disp nebulizer w all tubing to use with nebulized albuterol treatments dx J45.901, J18.9 ROBERT 99 fax to [facility] [address], 08/12/22 8:52:00 EDT, Supply Start Date: 08/12/22 Status: Ordered Ventolin HFA 108 mcg/inh inhalation aerosol with adapter 2 puffs, Inhalation, 4 times a day, PRN Wheezing/Shortness of Breath, # 1 each, 1 Refills, Maintenance, 09/06/22 22:51:00 EDT, Aerosol, [facility], Partial fill upon patient request if the prescription is for a schedule II opioid drug... Start Date: 09/06/22 Status: Ordered Problem List Condition Confirmation Course Effective Dates Status Health St [facility] Informant Acquired immune deficiency syndrome (AIDS) with CD4 108 on 09/27/16 Confirmed Active Anal fissure Confirmed Active Axillary hidradenitis suppurativa, chronic and severe. not in groin area. Confirmed Active Marijuana use Confirmed Active Depression Confirmed Active History of laparoscopic appendectomy, welcome dr garret garcia 01/21/2020 Confirmed Active Uterine scar x1 Confirmed Active Social History Social History Type Response Tobacco Use: 4 or less cigar ettes(less than 1/4 pack)/day in last 30 days. Sex Patient Care team information Personnel Name: Felicita Melgar MD, I Address: Address: [address] [place] [address]
--- OUTSIDE RECORDS SUMMARY | 2023-02-13 07:57 | XMS_ITS | Continuity of Care Document ---
Author Name Unknown Organization [facility] Address [address] [place] [address]- Care Team Providers Care Addresser Name Role Phone Felicita Melgar MD, I Primary Care Physician [place] [facility] [place] - 10/06/[address] [address]- Attending Physician: Felicita Melgar MD, I Admitting Physician: Felicita Melgar MD, I Referring Physician: Felicita Melgar MD, I Allergies, Adverse Reactions, Alerts Substance Reaction Severity Status doxycycline itchy rash Active dapsone 09/2019 developed rash on dapsone/trimeth oprim Active rifabutin severe arthralgias Active Bactrim Dairy food intake Active Immunizations Given and Recorded Vaccine Date Status Refusal Reason tetanus/diphtheria/pertussis, acel(Tdap) 02/16/17 Given tetanus/diphtheria/pertussis, acel(Tdap) 12/24/14 Recorded pneumococcal 13-valent vaccine 12/24/14 Recorded influenza virus vaccine, inactivated 12/24/14 Berto rded Not Given Vaccine Date Status Refusal Reason influenza virus vaccine, inactivated 09/16/22 Not Given Patient Refuses Medications albuterol 0.083% inhalation solution 3 mL = 2.5 mg, Inhalation, Every 4 hours, PRN Wheezing/Shortness of Breath, for use w/ nebulizer, #50 each, 2 Refills, Maintenance, 08/11/22 18:22:00 EDT, Solution, [id number], Partial fill upon patient request if the [...] 11 Refills, Maintenance, 09/06/22 17:29:00 EDT, Tablet, [facility], Partialfill upon patient request if the prescription is... Start Date: 09/06/22 Status: Ordered dextromethorphan-guaifenesin 10 mg-100 mg/10 mL oral liquid 5 mL, By Mouth, Every 4 hours, PRN Cough, for 30 days, # 120 mL, 2 Refills, Acute 11/09/22 18:20:00EST, 08/11/22 18:20:00 EDT, Liquid, [id number], Partial fill upon patient request [...] 11/10/22 9:53:00 EST, 08/12/22 9:53:00 EDT, Tablet, [facility], Partial fill upon patient request if the prescription is for a schedule II opioid drug.,... Start Date: 08/12/22 Stop Date: 11/10/22 Status: Ordered gabapentin 100 mg oral capsule 100 mg, 1, capsule, By Mouth, 3 times a day, # 90 capsule, Refills 1, Tot. Refills 1, Maintenance, 08/11/22 16:31:00 EDT, [id number] Partial fill upon patient request if the prescription is for a schedule II... Start Date: 08/11/22 Stop Date: 10/10/22 Status: Ordered MiraLax oral powder for reconstitution = 17 Gm, By Mouth, Daily, PRN Constipation, for 30 days, dissolve in water before taking, # 527 Gm,2 Refills, Acute 11/09/22 18:20:00 EST, 08/11/22 18:20:00 EDT, REC Powder, [facility]/pharmacy #[id number], Partial fill upon patient request if the prescription is... Start Date: 08/11/22 Stop Date: 11/09/22 Status: Ordered Nebulizer/Compressor See Instructions, # 1 each, Maintenance, disp nebulizer w all tubing to use with nebulized albuterol treatments dx J45.901, J18.9 ROBERT 99 fax to [facility] [address], 08/12/22 8:52:00 EDT, Supply Start Date: 08/12/22 Status: Ordered oxyCODONE 5 mg oral tablet 5 mg, 1, tablet, By Mouth, Every 6 hours, PRN, mass pat checked., # 30 tablet, Refills 0, Tot. Refills 0, Maintenance, pain in chest, 10/04/22 11:58:00 EST, Route to Pharmacy Electronically, [facility], Partial fill upon patient reque... Start Date: 10/04/22 Status: Ordered predniSONE 10 mg oral tablet 4 tablet = 40 mg, By Mouth, Daily, # 56 tablet, 1 Refills, Maintenance, 10/04/22 11:57:00 EST, [facility], Partial fill upon patient request if the prescription is for a schedule II opioid drug., 165, cm, 10/04/22 11:55:00 EST, Height... Start Date: 10/04/22 Stop Date: 11/01/22 Status: Ordered Ventolin HFA 108 mcg/inh inhalation aerosol with adapter 2 puffs, Inhalation, 4 times a day, PRN Wheezing/Shortness of Breath, # 1 each, 1 Refills, Maintenance, 09/06/22 22:51:00 EDT, Aerosol, [facility], Partial fill upon patient [...] Depression Confirmed Active History of laparoscopic appendectomy, [facility], dr combs 01/21/2020 Confirmed Active Uterine scar x1 Confirmed Active Social History Social History Type Response Tobacco Use: 4 or less cigar ettes(less than 1/4 pack)/day in last 30 days. Sex Patient Care team information Care Team Personnel Name: Renzo Hernandez RN Position: [facility] RN Supv Member Role: Primary Care Nurse Name: Felicita Melgar MD, I Position: [facility] Primary Care Physician Member Role: PCP Address: Address: [address] [place] [address]- Name: Candie Bustamante RN Position: S RN Member Role: Primary Care Nurse Name: Rocio Brown RN Position: S RN Member Role: Primary Care Nurse Name: Yulissa Gonzales RN Position: S RN Member Role: Primary Care Nurse Address: Address: [address] [place] [address]- Name: Heather Youngblood RN Position: [facility] RN Member Role: Primary Care Nurse Care Team Related Persons Name: KIRIT COLLIERTOR Address: [place] [address] Name: AMANDA RESTREPO Address: home [address] [place] [address]
--- OUTSIDE RECORDS SUMMARY | 2023-02-13 07:57 | XMS_ITS | Continuity of Care Document ---
Author Name Unknown Organization [facility] Address [address] [place] [address]- Care Team Providers Care Content Engineer Name Role Phone Felicita Melgar MD, I Primary Care Physician [phone] Encounter [facility] [place] Date(s): 09/28/20 - 10/28/[address] [address]- Allergies, Adverse Reactions, Alerts Substance Reaction Severity Status doxycycline itchy rash Active Bactrim Dairy food intake Active Immunizations Given and Recorded Vaccine Date Status Refusal Reason tetanus/diphtheria/pertussis, acel(Tdap) 02/16/17 Given Medications albuterol CFC free 90 mcg/inh inhalation aerosol 2, puffs, Inhalation, 4 times a day, PRN, # 1 each, Refills 11, Tot. Refills 11, Maintenance, 09/26/19 14:51:18 EST, Aerosol, Route to Pharmacy Electronically, [id number], [id number] Start Date: 09/26/19 Stop Date: 09/20/20 Status: Ordered atovaquone 750 mg/5 mL oral suspension 10 mL = 1,500 mg, By Mouth, Daily, for 30 days, with a meal, # 300 mL, 11 Refills, Acute 04/25/21 10:11:00 EDT, 04/30/20 10:11:00 EDT, [id number], 165, cm, 04/30/20 9:21:00 EDT, Height, 61.5,kg, 10/01/18 20:01:00 EST, Dry Weight Start Date: 04/30/20 Stop Date: 04/25/21 Status: Ordered atovaquone 750 mg/5 mL oral suspension 5 mL = 750 mg, By Mouth, 2 times a day, 0 Refills, Maintenance, 09/24/20 14:18:00 EST Start Date: 09/24/20 Status: Ordered Biktarvy oral tablet 1 tablet, By Mouth, Daily, # 30 tablet, 11 Refills, Maintenance, 04/30/20 10:11:00 EDT, Tablet, [id number], 1 tablet By Mouth Daily,x30 days, 165, cm, 04/30/20 9:21:00 EDT, Height, 61.5, kg, 10/01/18 20:01:00 EST, Dry Weight Start Date: 04/30/20 Stop Date: 04/25/21 Status: Ordered diphenhydrAMINE 25 mg oral capsule See Instructions, PRN for itching, 1-2 cap po qid, prn itching do not take if driving, # 50 capsule, 0 Refills, Maintenance, 10/08/20 12:29:00 EST, Capsule, [id number], Partial fill upon patient request, 165, cm, 10/08/20 11:53:00 EST, Height... Start Date: 10/08/20 Status: Ordered doxycycline hyclate 100 mg oral capsule 1 capsule = 100 mg, By Mouth, 2 times a day, # 28 capsule, 0 Refills, Maintenance, 09/28/20 10:50:00 EST, [id number], 165, cm, 09/25/20 5:38:00 EST, Height, 68, kg, 09/25/20 5:38:00 EST, Dry Weight Start Date: 09/28/20 Stop Date: 10/12/20 Status: Ordered Problem List Condition Effective Dates Status Health Status Inform ant Acquired immune deficiency s yndrome (AIDS) with CD4 108 on 09/27/16(Confirmed) Active Anal fissure(Confirmed) Active Axillary hidradenitis suppur ativa, chronic and severe. not in groin area.(Confirmed) Active Marijuana use(Confirmed) Active Depression(Confirmed) Active History of laparoscopic appe ndectomy, [facility], dr combs 01/21/2020(Confirmed) Active Uterine scar x1(Confirmed) Active Social History Social History Type Response Smoking Status Former smoker entered on: 10/27/16 Sex
--- OUTSIDE RECORDS SUMMARY | 2023-02-13 07:57 | XMS_ITS | Continuity of Care Document ---
Author Name Unknown Organization [facility] Address [address] [place] [address]- Care Team Providers Care Fpga Design Engineer Name Role Phone Talia HANNON, Felicita Rivera Primary Care Physician Encounter [facility] [place] [id number] Date(s): 08/03/21 - 09/02/[address] [address]- Attending Physician: Isabela Rivera Admitting Physician: AdmIsabela andrew Referring Physician: AdmtrIsabela Allergies, Adverse Reactions, Alerts Substance Reaction Severity Status doxycycline itchy rash Active Bactrim Dairy food intake Active Immunizations Given and Recorded Vaccine Date Status Refusal Reason tetanus/diphtheria/pertussis, acel(Tdap) 02/16/17 Given tetanus/diphtheria/pertussis, acel(Tdap) 12/24/14 Recorded pneumococcal 13-valent vaccine 12/24/14 Recorded influenza virus vaccine, inactivated 12/24/14 Berto rded Medications albuterol CFC free 90 mcg/inh inhalation aerosol 2, puffs, Inhalation, 4 times a day, PRN, # 1 each, Refills 11, Tot. Refills 11, Maintenance, 09/26/19 14:51:18 EST, Aerosol, Route to Pharmacy Electronically, [id number], [facility]/pharmacy #[id number] Start Date: 09/26/19 Stop Date: 09/20/20 Status: [...] Depression(Confirmed) Active History of laparoscopic appe ndectomy, [facility] rich[facility] 01/21/2020(Confirmed) Active Uterine scar x1(Confirmed) Active Social History Social History Type Response Smoking Status Former smoker entered on: 10/27/16 Sex
--- OUTSIDE RECORDS SUMMARY | 2023-02-13 07:57 | XMS_ITS | Continuity of Care Document ---
Author Name Unknown Organization [facility] Address [address] [place] [address]- Care Team Providers Care Effervescent Salts Compounder Name Role Phone Talia HANNON, Felicita Rivera Primary Care Physician [place] [facility] [place](s): 04/30/20 - 06/13/[address] [address]- [facility] Attending Physician: Alexandra Murrell CNM Admitting Physician: Alexandra Murrell CNM Allergies, Adverse Reactions, Alerts Substance Reaction Severity Status Bactrim Dairy food intake Active Immunizations Given and Recorded Vaccine Date Status Refusal Reason tetanus/diphtheria/pertussis, acel(Tdap) 02/16/17 Given Medications albuterol CFC free 90 mcg/inh inhalation aerosol 2, puffs, Inhalation, 4 times a day, PRN, # 1 each, Refills 11, Tot. Refills 11, Maintenance, 09/26/19 14:51:18 EST, Aerosol, Route to Pharmacy Electronically, [id number], [facility]/pharmacy #[id number] Start Date: 09/26/19 Stop Date: 09/20/20 Status: Ordered atovaquone 750 mg/5 mL oral suspension 10 mL = 1,500 mg, By Mouth, Daily, for 30 days, with a meal, # 300 mL, 11 Refills, Acute 04/25/21 10:11:00 EDT, 04/30/20 10:11:00 EDT, [id number], 165, cm, 04/30/20 9:21:00 EDT, Height, 61.5,kg, 10/01/18 20:01:00 EST, Dry Weight Start Date: 04/30/20 Stop Date: 04/25/21 Status: Ordered Biktarvy oral tablet 1 tablet, By Mouth, Daily, # 30 tablet, 11 Refills, Maintenance, 04/30/20 10:11:00 EDT, Tablet, [id number], 1 tablet By Mouth Daily,x30 days, 165, cm, 04/30/20 9:21:00 EDT, Height, 61.5, kg, 10/01/18 20:01:00 EST, Dry Weight Start Date: 04/30/20 Stop Date: 04/25/21 Status: Ordered Problem List Condition Effective Dates Status Health Status Inform ant Acquired immune deficiency s yndrome (AIDS) with CD4 108 on 09/27/16(Confirmed) Active Anal fissure(Confirmed) Active Axillary hidradenitis suppur ativa, chronic and severe. not in groin area.(Confirmed) Active Marijuana use(Confirmed) Active Depression(Confirmed) Active History of laparoscopic appe ndectomy, dr garret man 01/21/2020(Confirmed) Active Uterine scar x1(Confirmed) Active Social History Social History Type Response Smoking Status Former smoker entered on: 10/27/16 Sex
--- OUTSIDE RECORDS SUMMARY | 2023-02-13 07:57 | XMS_ITS | Continuity of Care Document ---
Author Name Unknown Organization [facility] Address [address] [place] [address]- Care Team Providers Care Landfill Grader Name Role Phone Felicita Melgar MD, I Primary Care Physician [phone] [place] [facility] [place] 09/28/20 - 10/28/[address] [address]- Allergies, Adverse Reactions, Alerts Substance Reaction Severity Status doxycycline itchy rash Active Bactrim Dairy food intake Active Immunizations Given and Recorded Vaccine Date Status Refusal Reason tetanus/diphtheria/pertussis, acel(Tdap) 02/16/17 Given Medications albuterol CFC free 90 mcg/inh inhalation aerosol 2, puffs, Inhalation, 4 times a day, PRN, # 1 each, Refills 11, Tot. Refills 11, Maintenance, 09/26/19 14:51:18 EST, Aerosol, Route to Pharmacy Electronically, [id number], [id number] Start Date: 09/26/19 Stop Date: [...]
--- OUTSIDE RECORDS SUMMARY | 2023-02-13 07:57 | XMS_ITS | Continuity of Care Document ---
Author Name Unknown Organization [facility] Address [address] [place] [address]- Care Team Providers Care Bottling Line Operator Name Role Phone Talia HANNON, Felicita Rivera Primary Care Physician [phone] Encounter [facility] Date(s): 06/21/22 - 07/21/[address] [address]- Allergies, Adverse Reactions, Alerts Substance Reaction Severity [...] each, Refills 11, Tot. Refills 11, Maintenance, 06/29/22 18:16:00 EDT, Aerosol, Route to Pharmacy Electronically, [id number]_[id number], [facility], 165, cm, 05/16/22 22:59:00 EDT, Height, 70,... Start Date: 06/29/22 Stop Date: 06/24/23 Status: Ordered atovaquone 750 mg/5 mL oral suspension 5 mL = 750 mg, By Mouth, 2 times a day, # 300 mL, 11 Refills, Maintenance, 06/29/22 12:16:00 EDT, Suspension, [facility], Partial fill upon patient request if the prescription is fora schedule II opioid drug., 165, cm, 05/16/22 22:59... Start Date: 06/29/22 Status: Ordered Biktarvy oral tablet 1 tablet, By Mouth, Daily, # 30 tablet, 11 Refills, Maintenance, 06/29/22 18:16:00 EDT, Tablet, [facility], 1 tablet By Mouth Daily,x30 days, 165, cm, 05/16/22 22:59:00 EDT, Height, 70, kg, 05/16/22 22:59:00 EDT, Dry Weight Start Date: 06/29/22 Stop Date: 06/24/23 Status: Ordered ibuprofen 800 mg oral tablet 800 mg, 1, tablet, By Mouth, 3 times a day, PRN, for 7 days, take with food, # 21 tablet, Refills 0, Tot. Refills 0, Acute 07/28/22 11:12:00 EDT, for pain, 07/21/22 11:12:00 EDT, Route to Pharmacy Electronically, [facility]/pharmacy #[id number], Partial fill upon... Start Date: 07/21/22 Stop Date: 07/28/22 Status: Ordered tub chair tub chair, See Instructions, # 1 each, Refills 0, Tot. Refills 0, Maintenance, R53.1, Z91.81 use intub when showering for safety to prevent falls ht 165cm wt 70 kg pls fax to [facility] with 06/28/22 visit note thank you, 06/29/22 12:12:00 EDT... Start Date: 06/29/22 Status: Ordered Problem List Condition Effective Dates [...] Status Former smoker entered on: 10/27/16 Sex Care Team Personnel Name: Talia HANNON, Felicita Rivera Address: [address] [place] [address]- [place]
--- OUTSIDE RECORDS SUMMARY | 2023-02-13 07:57 | XMS_ITS | Continuity of Care Document ---
Author Name Unknown Organization [facility] Address [address] [place] [address]- Care Team Providers Care Mixing Machine Tender Cork Rod Name Role Phone Talia HANNON, Felicita Rivera Primary Care Physician [place] [facility] [place] [address]- [facility] Allergies, Adverse Reactions, Alerts Substance Reaction Severity Status Bactrim Dairy food intake Active Immunizations Given and Recorded Vaccine Date Status Refusal Reason tetanus/diphtheria/pertussis, acel(Tdap) 02/16/17 Given Medications albuterol CFC free 90 mcg/inh inhalation aerosol 2, puffs, Inhalation, 4 times a day, PRN, # 1 each, Refills 11, Tot. Refills 11, Maintenance, 09/26/19 14:51:18 EST, Aerosol, Route to Pharmacy Electronically, [id number], [id number] Start Date: 09/26/19 Stop Date: [...]
--- OUTSIDE RECORDS SUMMARY | 2023-02-13 07:57 | XMS_ITS | Continuity of Care Document ---
Author Name Unknown Organization [facility] Address [address] [place] [address]- Care Team Providers Care Vice President Pharmacy Name Role Phone Felicita Melgar MD, I Primary Care Physician [phone] Encounter [facility] Date(s): 07/27/22 - 08/26/[address] [address]- Allergies, Adverse Reactions, Alerts Substance Reaction Severity Status doxycycline itchy rash Active dapsone 09/2019 developed rash on dapsone/trimeth oprim Active Bactrim Dairy food intake Active Immunizations [...] 12/09/22 12:42:00 EST, 10/10/22 12:42:00 EST, Tablet, [facility]/pharmacy #[id number], Partial fill upon patient request if the prescription is for a schedule II opioid drug., 160, cm, 08/11/22... Start Date: 10/10/22 Stop Date: 12/09/22 Status: Ordered dextromethorphan-guaifenesin 10 mg-100 mg/10 mL oral liquid 5 mL, By Mouth, Every 4 hours, PRN Cough, for 30 days, # 120 mL, 2 Refills, Acute 11/09/22 18:20:00EST, 08/11/22 18:20:00 EDT, Liquid, [facility]/pharmacy #[id number], Partial fill upon patient request if the prescription is for a schedule II opioid drug., 5 mL B... Start Date: 08/11/22 Stop Date: 11/09/22 Status: Ordered docusate-senna 50 mg-8.6 mg oral capsule 2 capsule, By Mouth, Daily at bedtime, PRN Constipation, for 30 days, # 60 capsule, 2 Refills, Acute 11/09/22 18:20:00 EST, 08/11/22 18:20:00 EDT, Capsule, [facility]/pharmacy #[id number], Partial fill upon patient request if the prescription is for a schedule II... Start Date: 08/11/22 Stop Date: 11/09/22 Status: Ordered dolutegravir 50 mg oral tablet 1 tablet = 50 mg, By Mouth, Daily, # 30 tablet, 2 Refills, Maintenance, 08/12/22 9:53:00 EDT, Tablet, [facility], Partial fill upon patient request if the prescription is for a schedule II opioid drug., 160, cm, 08/11/22 7:42:00 EDT,... Start Date: 08/12/22 Stop Date: 11/10/22 Status: Ordered ethambutol 400 mg oral tablet 3 tablet = 1,200 mg, By Mouth, Daily, for 30 days, # 90 tablet, 2 Refills, Acute 11/10/22 9:53:00 EST, 08/12/22 9:53:00 EDT, Tablet, [facility], Partial fill upon patient request if the prescription is for a schedule II opioid drug.,... Start Date: 08/12/22 Stop Date: 11/10/22 Status: Ordered gabapentin 100 mg oral capsule 100 mg, 1, capsule, By Mouth, 3 times a day, # 90 capsule, Refills 1, Tot. Refills 1, Maintenance, 08/11/22 16:31:00 EDT, Route to Pharmacy Electronically, [facility]/pharmacy #[id number], Partial fill upon patient request if the prescription is for a schedule II... Start Date: 08/11/22 Stop Date: 10/10/22 Status: Ordered isoniazid 300 mg oral tablet 1 tablet = 300 mg, By Mouth, Daily, for 30 days, (script to use once pharmacy has 300mg tabs available), # 30 tablet, 2 Refills, Acute 11/10/22 9:52:00 EST, 08/12/22 9:52:00 EDT, Tablet, [facility], Partial fill upon patient request i... Start Date: 08/12/22 Stop Date: 11/10/22 Status: Ordered MiraLax oral powder for reconstitution = 17 Gm, By Mouth, Daily, PRN Constipation, for 30 days, dissolve in water before taking, # 527 Gm,2 Refills, Acute 11/09/22 18:20:00 EST, 08/11/22 18:20:00 EDT, REC Powder, [facility]/pharmacy #[id number], Partial fill upon patient request if the prescription is... Start Date: 08/11/22 Stop Date: 11/09/22 Status: Ordered Nebulizer/Compressor See Instructions, # 1 each, Maintenance, disp nebulizer w all tubing to use with nebulized albuterol treatments dx J45.901, J18.9 ROBERT 99 fax to [facility] [address], 08/12/22 8:52:00 EDT, Supply Start Date: 08/12/22 Status: Ordered rifabutin 150 mg oral capsule 2 capsule = 300 mg, By Mouth, Daily, for 30 days, # 60 capsule, 2 Refills, Acute 11/10/22 9:53:00 EST, 08/12/22 9:53:00 EDT, Capsule, [facility], Partial fill upon patient request ifthe prescription is for a schedule II opioid drug.,... Start Date: 08/12/22 Stop Date: 11/10/22 Status: Ordered Truvada 200 mg-300 mg oral tablet 1 tablet, By Mouth, Daily, # 90 tablet, 0 Refills, Maintenance, 08/11/22 16:35:00 EDT, Tablet, [facility]/pharmacy #[id number], Partial fill upon patient request if the prescription is for a schedule II opioid drug., 1 tablet By Mouth Daily, 160, cm, 08/11/22 7:42... Start Date: 08/11/22 Status: Ordered Vitamin B6 50 mg oral tablet 50 mg, 1, tablet, By Mouth, Daily, for 30 days, # 30 tablet, Refills 2, Tot. Refills 2, Acute 11/09/22 18:20:00 EST, 08/11/22 18:20:00 EDT, Route to Pharmacy Electronically, [facility]/pharmacy #[id number], Partial fill upon patient request if the prescription is... Start Date: 08/11/22 Stop Date: 11/09/22 Status: Ordered Problem List Condition Confirmation Course Effective Dates Status Health St [facility] Informant Acquired immune deficiency syndrome (AIDS) with CD4 108 on 09/27/16 Confirmed Active Anal fissure Confirmed Active Axillary hidradenitis suppurativa, chronic and severe. not in groin area. Confirmed Active Marijuana use Confirmed Active Depression Confirmed [facility] Confirmed Active Uterine scar x1 Confirmed Active Social History Social History Type Response Tobacco Use: 4 or less cigar ettes(less than 1/4 pack)/day in last 30 days. Sex Patient Care team information Personnel Name: Felicita Melgar MD, I Address: Address: [address] [place] [address]
--- OUTSIDE RECORDS SUMMARY | 2023-02-13 07:57 | XMS_ITS | Continuity of Care Document ---
Author Name Unknown Organization [facility] Address [address] [place] [address]- Care Team Providers Care Motel Manager Name Role Phone Talia HANNON, Felicita Rivera Primary Care Physician [phone] [facility]counter [facility]): 08/17/22 - 09/16/22 [facility] [address] [place] [id number] Allergies, Adverse Reactions, Alerts Substance Reaction Severity [...] Refills, Maintenance, 08/11/22 18:22:00 EDT, Solution, [id number], Partial fill upon patient request if the [...] 11 Refills, Maintenance, 09/06/22 17:29:00 EDT, Tablet, [facility], Partialfill upon patient request [...] 11/10/22 9:53:00 EST, 08/12/22 9:53:00 EDT, Tablet, [facility], Partial fill upon patient request if the prescription is for a schedule II opioid drug.,... Start Date: 08/12/22 Stop Date: 11/10/22 Status: Ordered gabapentin 100 mg oral capsule 100 mg, 1, capsule, By Mouth, 3 times a day, # 90 capsule, Refills 1, Tot. Refills 1, Maintenance, 08/11/22 16:31:00 EDT, Route to Pharmacy Electronically, [facility]/pharmacy #[id number], Partial fill upon patient request if the prescription is for a schedule II... Start Date: 08/11/22 Stop Date: 10/10/22 Status: Ordered MiraLax oral powder for reconstitution = 17 Gm, By Mouth, Daily, PRN Constipation, for 30 days, dissolve in water before taking, # 527 Gm,2 Refills, Acute 11/09/22 18:20:00 EST, 08/11/22 18:20:00 EDT, REC Powder, [facility]/pharmacy #[id number], Partial fill upon patient request if the prescription is... Start Date: 08/11/22 Stop Date: 11/09/22 Status: Ordered Nebulizer/Compressor See Instructions, # 1 each, Maintenance, disp nebulizer w all tubing to use with nebulized albuterol treatments dx J45.901, J18.9 ROBERT 99 fax to [facility] [address], 08/12/22 8:52:00 EDT, Supply Start Date: 08/12/22 Status: Ordered Ventolin HFA 108 mcg/inh inhalation aerosol with adapter 2 puffs, Inhalation, 4 times a day, PRN Wheezing/Shortness of Breath, # 1 each, 1 Refills, Maintenance, 09/06/22 22:51:00 EDT, Aerosol, [facility], Partial fill upon patient [...] Depression Confirmed Active History of laparoscopic appendectomy, dr garret man 01/21/2020 Confirmed Active Uterine scar x1 Confirmed Active Social History Social History Type Response Tobacco Use: 4 or less cigar ettes(less than 1/4 pack)/day in last 30 days. Sex Patient Care team information Personnel Name: Felicita Melgra MD, I Address: Address: [address] [place] [id number]
--- OUTSIDE RECORDS SUMMARY | 2023-02-13 07:57 | XMS_ITS | Continuity of Care Document ---
Author Name Unknown Organization [facility] Address [address] [place] [address]- Care Team Providers Care Saddle Maker Name Role Phone Talia HANNON, Felicita Rivera Primary Care Physician [facility] Date(s): 11/03/22 - 12/03/[address] [address]- Allergies, Adverse Reactions, Alerts Substance Reaction Severity [...] Refills, Maintenance, 08/11/22 18:22:00 EDT, Solution, [id number], Partial fill upon patient request if the prescription is for a sc... Start Date: 08/11/22 Status: Ordered atovaquone 750 mg/5 mL oral suspension 10 mL = 1,500 mg, By Mouth, Daily, for 30 days, with meals, # 300 mL, 11 Refills, Acute 01/08/24 14:58:00 EST, 12/02/22 14:58:00 EST, Suspension, [facility], Partial fill upon patient request if the prescription is for a schedule II o... Start Date: 12/02/22 Stop Date: 11/27/23 Status: Ordered azithromycin 500 mg oral tablet 1 tablet = 500 mg, By Mouth, Daily, for 30 days, # 30 tablet, 5 Refills, Acute 05/31/23 14:52:00 EDT, 12/02/22 14:52:00 EST, Tablet, [facility], Partial fill upon patient request if the prescription is for a schedule II opioid drug.,... Start Date: 12/02/22 Stop Date: 05/31/23 Status: Ordered Biktarvy oral tablet 1 tablet, By Mouth, Daily, # 30 tablet, 11 Refills, Maintenance, 12/02/22 14:52:00 EST, Tablet, [facility], Partial fill upon patient request if the prescription is for a schedule IIopioid drug., 1 tablet By Mouth Daily,x30 days, 165... Start Date: 12/02/22 Stop Date: 11/27/23 Status: Ordered ethambutol 400 mg oral tablet 3 tablet = 1,200 mg, By Mouth, Daily, for 30 days, # 90 tablet, 5 Refills, Acute 05/31/23 14:52:00 EDT, 12/02/22 14:52:00 EST, Tablet, [facility], Partial fill upon patient request if the prescription is for a schedule II opioid drug.... Start Date: 12/02/22 Stop Date: 05/31/23 Status: Ordered Nebulizer/Compressor See Instructions, # 1 each, Maintenance, disp nebulizer w all tubing to use with nebulized albuterol treatments dx J45.901, J18.9 ROBERT 99 fax to [facility] [address], 08/12/22 8:52:00 EDT, Supply Start Date: 08/12/22 Status: Ordered Symbicort 160mcg/4.5mcg Inhaler 2, puffs, Inhalation, 2 times a day, in the morning and the evening use with spacer chamber rinse mouth and throat after use, # 1 each, Refills 6, Tot. Refills 6, Maintenance, 10/07/22 15:11:00 EST, Aerosol, Route to Pharmacy Electronically, [email or web address]... Start Date: 10/07/22 Status: Ordered Ventolin HFA 108 mcg/inh inhalation aerosol with adapter 2 puffs, Inhalation, 4 times a day, PRN Wheezing/Shortness of Breath, # 1 each, 3 Refills, Maintenance, 10/31/22 15:48:00 EST, Aerosol, [facility], Partial fill upon patient request if the prescription is for a schedule II opioid drug... Start Date: 10/31/22 Status: Ordered Problem List Condition Confirmation Course Effective Dates Status H ealth Status Informant Acquired immune deficiency syndrome (AIDS) with CD4 108 on 09/27/16 Confirmed Active Anal fissure Confirmed Active Axillary hidradenitis suppurativa, chronic and severe. not in groin area. 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 Sex Patient Care team information Care Team Personnel Name: Renzo Hernandez RN Position: [facility] RN Supv Member Role: Primary Care Nurse Name: Felicita Melgar MD, I Position: [facility] Primary Care Physician Member Role: PCP Address: Address: [address] [place] [id number]- Name: Candie Bustamante RN Position: S RN Member Role: Primary Care Nurse Name: Rocio Brown RN Position: S RN Member Role: Primary Care Nurse Name: Yulissa Gonzales RN Position: S RN Member Role: Primary Care Nurse Address: Address: [address] [place] [id number]- [place] Name: Heather Youngblood RN Position: [facility] RN Member Role: Primary Care Nurse Care Team Related Persons Name: CECIL COLLEIR Address: [place] [address] Name: AMANDA RESTREPO Address: home [address] [place] [id number]
--- OUTSIDE RECORDS SUMMARY | 2023-02-13 07:57 | XMS_ITS | Continuity of Care Document ---
Author Name Unknown Organization [facility] Address [address] [place] [address]- Care Team Providers Care Hair Boiler Operator Name Role Phone Talia HANNON, Felicita Rivera Primary Care Physician [facility] Date(s): 10/07/22 - 11/10/[address] [address]- Attending Physician: Felicita Melgar MD, I Admitting Physician: Felicita Melgar MD, I Referring Physician: Sebastian Goff MD Allergies, Adverse Reactions, Alerts Substance Reaction Severity [...] Refills, Maintenance, 08/11/22 18:22:00 EDT, Solution, [id number], Partial fill upon patient request if the prescription is for a sc... Start Date: 08/11/22 Status: Ordered azithromycin 500 mg oral tablet = 500 mg, By Mouth, Daily, for 30 days, # 30 tablet, 1 Refills, Acute 12/09/22 12:42:00 EST, 10/10/22 12:42:00 EST, Tablet, [facility]/pharmacy #[id number], Partial fill upon patient request if the prescription is for a schedule II opioid drug., 160, cm, 08/11/22... Start Date: 10/10/22 Stop Date: 12/09/22 Status: Ordered Biktarvy oral tablet 1 tablet, By Mouth, Daily, pharmacy: please renew bikarvy. discontinue dolutegravir/truvada., # 30 tablet, 11 Refills, Maintenance, 09/06/22 17:29:00 EDT, Tablet, [facility], Partialfill upon patient request if the prescription is... Start Date: 09/06/22 Status: Ordered ethambutol 400 mg oral tablet 3 tablet = 1,200 mg, By Mouth, Daily, for 30 days, # 90 tablet, 3 Refills, Acute 02/28/23 15:48:00 EDT, 10/31/22 15:48:00 EST, Tablet, [facility], Partial fill upon patient request if the prescription is for a schedule II opioid drug.... Start Date: 10/31/22 Stop Date: 02/28/23 Status: Ordered gabapentin 100 mg oral capsule 100 mg, 1, capsule, By Mouth, 3 times a day, # 90 capsule, Refills 1, Tot. Refills 1, Maintenance, 08/11/22 16:31:00 EDT, Route to Pharmacy Electronically, [facility]/pharmacy #[id number], Partial fill upon patient request if the prescription is for a schedule II... Start Date: 08/11/22 Stop Date: 10/10/22 Status: Ordered Nebulizer/Compressor See Instructions, # 1 each, Maintenance, disp nebulizer w all tubing to use with nebulized albuterol treatments dx J45.901, J18.9 ROBERT 99 fax to [facility] [address], 08/12/22 8:52:00 EDT, Supply Start Date: 08/12/22 Status: Ordered oxyCODONE 5 mg oral tablet 5 mg, 1, tablet, By Mouth, Every 6 hours, PRN, mass pat checked., # 30 tablet, Refills 0, Tot. Refills 0, Maintenance, pain in chest, 10/17/22 15:32:00 EST, Route to Pharmacy Electronically, [facility], Partial fill upon patient reque... Start Date: 10/17/22 Status: Ordered predniSONE 10 mg oral tablet 4 tablet = 40 mg, By Mouth, Daily, # 56 tablet, 1 Refills, Maintenance, 10/04/22 11:57:00 EST, [facility], Partial fill upon patient request if the prescription is for a schedule II opioid drug., 165, cm, 10/04/22 11:55:00 EST, Height... Start Date: 10/04/22 Stop Date: 11/01/22 Status: Ordered predniSONE 10 mg oral tablet See Instructions, 4 tab po qd x 5d and then drop to 3 tab po qd x 5d and then drop to 2 tab po qd x5d and then drop to 1 tab po qd, # 100 tablet, 0 Refills, Maintenance, 10/17/22 15:29:00 EST, Tablet, [facility], Partial fill upon pa... Start Date: 10/17/22 Status: Ordered Symbicort 160mcg/4.5mcg Inhaler 2, puffs, [...] 3 Refills, Maintenance, 10/31/22 15:48:00 EST, Aerosol, [facility], Partial fill upon patient request [...] Team Personnel Name: Renzo Hernandez RN Position: S RN Supv Member Role: Primary Care Nurse Name: Felicita Melgar MD, I Position: [facility] Primary Care Physician Member Role: PCP Address: Address: [address] [place] [address]- Name: Candie Bustamante RN Position: S RN Member Role: Primary Care Nurse Name: Rocio Brown RN Position: S RN Member Role: Primary Care Nurse Name: Yulissa Gonzales RN Position: S RN Member Role: Primary Care Nurse Address: Address: [address] [place] [id number]- Name: Heather Youngblood RN Position: [facility] SN RN Member Role: Primary Care Nurse Care Team Related Persons Name: CECIL COLLIER Address: [place] [address] Name: AMANDA RESTREPO Address: home [address] [place] [id number]
--- OUTSIDE RECORDS SUMMARY | 2023-02-13 07:57 | XMS_ITS | Continuity of Care Document ---
Author Name Unknown Organization [facility] Address [address] [place] [address]- Care Team Providers Care Readiness Paraprofessional Name Role Phone Talia HANNON, Felicita Rivera Primary Care Physician [phone] Encounter [facility] [id number] Date(s): 10/29/19 - 11/08/[address] [address]- [facility] Attending Physician: Isabela Rivera Admitting Physician: Isabela Rivera Referring Physician: AdmtrIsabela Allergies, Adverse Reactions, Alerts Substance Reaction Severity Status Bactrim Dairy food intake Active Immunizations Given and Recorded Vaccine Date Status Refusal Reason tetanus/diphtheria/pertussis, acel(Tdap) 02/16/17 Given Medications albuterol CFC free 90 mcg/inh inhalation aerosol 2, puffs, Inhalation, 4 times a day, PRN, # 1 each, Refills 11, Tot. Refills 11, Maintenance, 09/26/19 14:51:18 EST, Aerosol, Route to Pharmacy Electronically, [id number], [facility]/pharmacy #[id number] Start Date: 09/26/19 Stop Date: 09/20/20 Status: Ordered atovaquone 750 mg/5 mL oral suspension 10 mL = 1,500 mg, By Mouth, Daily, for 30 days, with a meal, # 300 mL, 11 Refills, Acute 09/24/20 13:49:52 EST, 09/30/19 13:49:52 EST Start Date: 09/30/19 Stop Date: 09/24/20 Status: Ordered Biktarvy oral tablet 1 tablet, By Mouth, Daily, # 30 tablet, 11 Refills, Maintenance, 09/26/19 14:52:10 EST, Tablet, 1 tablet By Mouth Daily,x30 days Start Date: 09/26/19 Stop Date: 09/20/20 Status: Ordered Problem List Condition Effective Dates Status Health Status Inform ant Acquired immune deficiency s yndrome (AIDS) with CD4 108 on 09/27/16(Confirmed) Active Anal fissure(Confirmed) Active Axillary hidradenitis suppur ativa, chronic and severe. not in groin area.(Confirmed) Active Marijuana use(Confirmed) Active Depression(Confirmed) Active Uterine scar x1(Confirmed) Active Social History Social History Type Response Smoking Status Former smoker entered on: 10/27/16 Sex
--- OUTSIDE RECORDS SUMMARY | 2023-02-13 07:57 | XMS_ITS | Continuity of Care Document ---
Author Name Unknown Organization [facility] Address [address] [place] [address]- Care Team Providers Care Inside Sales Supervisor Name Role Phone Felicita Melgar MD, I Primary Care Physician [phone] [facility]counter [facility] Date(s): 10/04/22 - 11/03/[address] [address]- Allergies, Adverse Reactions, Alerts Substance Reaction Severity [...] Maintenance, 09/06/22 17:29:00 EDT, Tablet, [facility], Partialfill upon patient request if the prescription is... Start Date: 09/06/22 Status: Ordered dextromethorphan-guaifenesin 10 mg-100 mg/10 mL oral liquid 5 mL, By Mouth, Every 4 hours, PRN Cough, for 30 days, # 120 mL, 2 Refills, Acute 11/09/22 18:20:00EST, 08/11/22 18:20:00 EDT, Liquid, [facility]/pharmacy #[id number], Partial fill upon patient request if the prescription is for a schedule II opioid drug., 5 mL B... Start Date: 08/11/22 Stop Date: 11/09/22 Status: Ordered docusate-senna 50 mg-8.6 mg oral capsule 2 capsule, By Mouth, Daily at bedtime, PRN Constipation, for 30 days, # 60 capsule, 2 Refills, Acute 11/09/22 18:20:00 EST, 08/11/22 18:20:00 EDT, Capsule, [facility]/pharmacy #[id number], Partial fill upon patient request if the prescription is for a schedule II... Start Date: 08/11/22 Stop Date: 11/09/22 Status: Ordered ethambutol 400 mg oral tablet 3 tablet = 1,200 mg, By Mouth, Daily, for 30 days, # 90 tablet, 3 Refills, Acute 02/28/23 15:48:00 EDT, 10/31/22 15:48:00 EST, Tablet, [facility], Partial fill upon patient request [...] 18:20:00 EST, 08/11/22 18:20:00 EDT, REC Powder, [facility]/pharmacy #[id number], Partial fill upon patient request if the prescription is... Start Date: 08/11/22 Stop Date: 11/09/22 Status: Ordered Nebulizer/Compressor See Instructions, # 1 each, Maintenance, disp nebulizer w all tubing to use with nebulized albuterol treatments dx J45.901, J18.9 ROBERT 99 fax to [facility] [address], 08/12/22 8:52:00 EDT, Supply Start Date: 08/12/22 Status: Ordered oxyCODONE 5 mg oral tablet 5 mg, 1, tablet, By Mouth, Every 6 hours, PRN, mass pat checked., # 30 tablet, Refills 0, Tot. Refills 0, Maintenance, pain in chest, 10/17/22 15:32:00 EST, Route to Pharmacy Electronically, [facility], Partial fill upon patient reque... Start Date: 10/17/22 Status: Ordered predniSONE 10 mg oral tablet 4 tablet = 40 mg, By Mouth, Daily, # 56 tablet, 1 Refills, Maintenance, 10/04/22 11:57:00 EST, [facility], Partial fill upon patient request [...] 0 Refills, Maintenance, 10/17/22 15:29:00 EST, Tablet, [facility], Partial fill upon pa... Start Date: [...] 3 Refills, Maintenance, 10/31/22 15:48:00 EST, Aerosol, [facility], Partial fill upon patient request [...] Depression Confirmed Active History of laparoscopic appendectomy, [facility], dr combs 01/21/2020 Confirmed Active Uterine scar x1 Confirmed Active Social History Social History Type Response Tobacco Use: 4 or less cigar ettes(less than 1/4 pack)/day in last 30 days. Sex Patient Care team information Care Team Personnel Name: Renzo Hernandez RN Position: S RN Supv Member Role: Primary Care Nurse Name: Felicita Melgar MD, I Position: S Primary Care Physician Member Role: PCP Address: Address: [address] [place] [id number] Name: Candie Bustamante RN Position: S RN Member Role: Primary Care Nurse Name: Rocio Brown RN Position: S RN Member Role: Primary Care Nurse Name: Yulissa Gonzales RN Position: S RN Member Role: Primary Care Nurse Address: Address: [address] [place] [address] [place] [address]- Name: Heather Youngblood RN Position: [facility] SN RN Member Role: Primary Care Nurse Care Team Related Persons Name: CECIL COLLIER Address: [place] [address] Name: AMANDA RESTREPO Address: home [address] [place] [address]
--- OUTSIDE RECORDS SUMMARY | 2023-02-13 07:57 | XMS_ITS | Continuity of Care Document ---
Author Name Unknown Organization [facility] Address [address] [place] [address]- Care Team Providers Care Skin Care Specialist Name Role Phone Felicita Melgar MD, I Primary Care Physician [facility] Date[facility]s): 08/11/22 - 09/10/[address] [address]- Allergies, Adverse Reactions, Alerts Substance Reaction Severity [...] 11 Refills, Maintenance, 09/06/22 17:29:00 EDT, Tablet, [facility], Partialfill upon patient request if the prescription is... Start Date: 09/06/22 Status: Ordered dextromethorphan-guaifenesin 10 mg-100 mg/10 mL oral liquid 5 mL, By Mouth, Every 4 hours, PRN Cough, for 30 days, # 120 mL, 2 Refills, Acute 11/09/22 18:20:00EST, 08/11/22 18:20:00 EDT, Liquid, [facility]/pharmacy #[id number], Partial fill upon patient request if [...] 11/10/22 9:53:00 EST, 08/12/22 9:53:00 EDT, Tablet, [facility], Partial fill upon patient request if the prescription is for a schedule II opioid drug.,... Start Date: 08/12/22 Stop Date: 11/10/22 Status: Ordered gabapentin 100 mg oral capsule 100 mg, 1, capsule, By Mouth, 3 times a day, # 90 capsule, Refills 1, Tot. Refills 1, Maintenance, 08/11/22 16:31:00 EDT, Route to Pharmacy Electronically, [facility]/pharmacy #[id number], Partial fill upon patient request if the prescription is for a schedule II... Start Date: 08/11/22 Stop Date: 10/10/22 Status: Ordered MiraLax oral powder for reconstitution = 17 Gm, By Mouth, Daily, PRN Constipation, for 30 days, dissolve in water before taking, # 527 Gm,2 Refills, Acute 11/09/22 18:20:00 EST, 08/11/22 18:20:00 EDT, REC Powder, [facility]/pharmacy #[id number], Partial fill upon patient request if the prescription is... Start Date: 08/11/22 Stop Date: 11/09/22 Status: Ordered Nebulizer/Compressor See Instructions, # 1 each, Maintenance, disp nebulizer w all tubing to use with nebulized albuterol treatments dx J45.901, J18.9 ROBERT 99 fax to [employer] [facility] [address], 08/12/22 8:52:00 EDT, Supply Start Date: 08/12/22 Status: Ordered Ventolin HFA 108 mcg/inh inhalation aerosol with adapter 2 puffs, Inhalation, 4 times a day, PRN Wheezing/Shortness of Breath, # 1 each, 1 Refills, Maintenance, 09/06/22 22:51:00 EDT, Aerosol, [facility], Partial fill upon [...] Depression Confirmed Active History of laparoscopic appendectomy, [facility] dr garret garcia 01/21/2020 Confirmed Active Uterine scar x1 Confirmed Active Social History Social History Type Response Tobacco Use: 4 or less cigar ettes(less than 1/4 pack)/day in last 30 days. Sex Patient Care team information Personnel Name: Felicita Melgar MD, I Address: Address: [address] [place] [address]
--- OUTSIDE RECORDS SUMMARY | 2023-02-13 07:57 | XMS_ITS | Continuity of Care Document ---
Author Name Unknown Organization [facility] Address [address] [place] [address]- Care Team Providers Care Third Steel Pourer Name Role Phone Felicita Melgar MD, I Primary Care Physician Encounter [facility] Date(s): 08/24/22 - 09/23/22 [facility] [address] [place] [id number] Allergies, Adverse Reactions, Alerts Substance Reaction Severity [...] 11 Refills, Maintenance, 09/06/22 17:29:00 EDT, Tablet, [facility], Partialfill upon patient request if [...] 11/10/22 9:53:00 EST, 08/12/22 9:53:00 EDT, Tablet, [facility], Partial fill upon patient request if the prescription is for a schedule II opioid drug.,... Start Date: 08/12/22 Stop Date: 11/10/22 Status: Ordered gabapentin 100 mg oral capsule 100 mg, 1, capsule, By Mouth, 3 times a day, # 90 capsule, Refills 1, Tot. Refills 1, Maintenance, 08/11/22 16:31:00 EDT, Route to Pharmacy Electronically, [facility]/pharmacy #[id number], Partial fill upon patient request if the prescription is for a schedule II... Start Date: 08/11/22 Stop Date: 10/10/22 Status: Ordered MiraLax oral powder for reconstitution = 17 Gm, By Mouth, Daily, PRN Constipation, for 30 days, dissolve in water before taking, # 527 Gm,2 Refills, Acute 11/09/22 18:20:00 EST, 08/11/22 18:20:00 EDT, REC Powder, [id number], Partial fill upon patient request if the prescription is... Start Date: 08/11/22 Stop Date: 11/09/22 Status: Ordered Nebulizer/Compressor See Instructions, # 1 each, Maintenance, disp nebulizer w all tubing to use with nebulized albuterol treatments dx J45.901, J18.9 ROBERT 99 fax to [facility] [address], 08/12/22 8:52:00 EDT, Supply Start Date: 08/12/22 Status: Ordered oxyCODONE 5 mg oral tablet 5 mg, 1, tablet, By Mouth, Every 6 hours, PRN, # 24 tablet, Refills 0, Tot. Refills 0, Maintenance,pain in chest, 09/17/22 9:17:00 EDT, Route to Pharmacy Electronically, [facility]/pharmacy #[id number], Partial fill upon patient request if the prescription is for... Start Date: 09/17/22 Status: Ordered predniSONE 10 mg oral tablet 7.5 tablet = 75 mg, By Mouth, Daily, take 7.5 tablet (75mg) daily x 10 days. then we will begin slow taper. take with food., # 75 tablet, 0 Refills, Maintenance, 09/17/22 9:12:00 EDT, [id number], Partial fill upon patient request if the prescr... Start Date: 09/17/22 Stop Date: 09/27/22 Status: Ordered Ventolin HFA 108 mcg/inh inhalation aerosol with adapter 2 puffs, Inhalation, 4 times a day, PRN Wheezing/Shortness of Breath, # 1 each, 1 Refills, Maintenance, 09/06/22 22:51:00 EDT, Aerosol, [facility], Partial fill upon patient request [...] Depression Confirmed Active History of laparoscopic appendectomy, [facility], dr combs 01/21/2020 Confirmed Active Uterine scar x1 Confirmed Active Social History Social History Type Response Tobacco Use: 4 or less cigar ettes(less than 1/4 pack)/day in last 30 days. Sex Patient Care team information Personnel Name: Felicita Melgar MD, I Address: Address: [address] [place] [id number]
--- OUTSIDE RECORDS SUMMARY | 2023-02-13 07:57 | XMS_ITS | Continuity of Care Document ---
Author Name Unknown Organization [facility] Address [address] [place] [address]- Care Team Providers Care Labor Contract Analyst Name Role Phone Felicita Melgar MD, I Primary Care Physician Encounter [facility] ACCT R [id number] Date(s): 11/05/20 - 12/05/[address] [address]- Attending Physician: AdmIsabela andrew Admitting Physician: AdmtrIsabela Referring Physician: Admtr, Ar8 Allergies, Adverse Reactions, Alerts Substance Reaction Severity Status doxycycline itchy rash Active Bactrim Dairy food intake Active Immunizations Given and Recorded Vaccine Date Status Refusal Reason tetanus/diphtheria/pertussis, acel(Tdap) 02/16/17 Given Medications albuterol CFC free 90 mcg/inh inhalation aerosol 2, puffs, Inhalation, 4 times a day, PRN, # 1 each, Refills 11, Tot. Refills 11, Maintenance, 09/26/19 14:51:18 EST, Aerosol, Route to Pharmacy Electronically, [id number], [facility]/pharmacy #[id number] Start Date: 09/26/19 Stop Date: 09/20/20 Status: Ordered atovaquone 750 mg/5 mL oral suspension 10 mL = 1,500 mg, By Mouth, Daily, for 30 days, with a meal, # 300 mL, 11 Refills, Acute 04/25/21 10:11:00 EDT, 04/30/20 10:11:00 EDT, [id number], 165, cm, 04/30/20 9:21:00 EDT, Height, 61.5,kg, 11/12/18 20:01:00 EST, Dry Weight Start Date: 04/30/20 [...] Depression(Confirmed) Active History of laparoscopic appe ndectomy, [facility], dr combs 01/21/2020(Confirmed) Active Uterine scar x1(Confirmed) Active Social History Social History Type Response Smoking Status Former smoker entered on: 10/27/16 Sex
--- OUTSIDE RECORDS SUMMARY | 2023-02-13 07:58 | XMS_ITS | Continuity of Care Document ---
Author Name Unknown Organization [facility] Address [address] [place] [address]- Care Team Providers Care Seam Feller Name Role Phone Felicita Melgar MD, I Primary Care Physician Encounter [facility] Date(s): 09/17/22 - 10/17/[address] [address]- Allergies, Adverse Reactions, Alerts Substance Reaction Severity [...] 11 Refills, Maintenance, 09/06/22 17:29:00 EDT, Tablet, [facility], Partialfill upon patient request if the prescription is... Start Date: 09/06/22 Status: Ordered dextromethorphan-guaifenesin 10 mg-100 mg/10 mL oral liquid 5 mL, By Mouth, Every 4 hours, PRN Cough, for 30 days, # 120 mL, 2 Refills, Acute 11/09/22 18:20:00EST, 08/11/22 18:20:00 EDT, Liquid, [facility]/pharmacy #[id number], Partial fill upon patient request if the prescription is for a schedule II opioid drug., 5 mL B... Start Date: 08/11/22 Stop Date: 11/09/22 Status: Ordered docusate-senna 50 mg-8.6 mg oral capsule 2 capsule, By Mouth, Daily at bedtime, PRN Constipation, for 30 days, # 60 capsule, 2 Refills, Acute 11/09/22 18:20:00 EST, 08/11/22 18:20:00 EDT, Capsule, [facility]/pharmacy #[id number], Partial fill upon patient request if the prescription is for a schedule II... Start Date: 08/11/22 Stop Date: 11/09/22 Status: Ordered ethambutol 400 mg oral tablet 3 tablet = 1,200 mg, By Mouth, Daily, for 30 days, # 90 tablet, 2 Refills, Acute 11/10/22 9:53:00 EST, 08/12/22 9:53:00 EDT, Tablet, [facility], Partial fill upon patient request if the prescription is for a schedule II opioid drug.,... Start Date: 08/12/22 Stop Date: 11/10/22 Status: Ordered gabapentin 100 mg oral capsule 100 mg, 1, capsule, By Mouth, 3 times a day, # 90 capsule, Refills 1, Tot. Refills 1, Maintenance, 08/11/22 16:31:00 EDT, [id number] Partial fill upon patient request if the prescription is for a schedule II... Start Date: 08/11/22 Stop Date: 10/10/22 Status: Ordered MiraLax oral powder for reconstitution = 17 Gm, By Mouth, Daily, PRN Constipation, for 30 days, dissolve in water before taking, # 527 Gm,2 Refills, Acute 11/09/22 18:20:00 EST, 08/11/22 18:20:00 EDT, REC Powder, [facility]/pharmacy #[id number], Partial fill upon patient request if the prescription is... Start Date: 08/11/22 Stop Date: 11/09/22 Status: Ordered Nebulizer/Compressor See Instructions, # 1 each, Maintenance, disp nebulizer w all tubing to use with nebulized albuterol treatments dx J45.901, J18.9 ROBERT 99 fax to [facility] [address], 08/12/22 8:52:00 EDT, Supply Start Date: 08/12/22 Status: Ordered oxyCODONE 5 mg oral tablet 5 mg, 1, tablet, By Mouth, Every 6 hours, PRN, mass pat checked., # 30 tablet, Refills 0, Tot. Refills 0, Maintenance, pain in chest, 10/17/22 15:32:00 EST, Route to Pharmacy Electronically, [facility], Partial fill upon patient reque... Start Date: 10/17/22 Status: Ordered predniSONE 10 mg oral tablet 4 tablet = 40 mg, By Mouth, Daily, # 56 tablet, 1 Refills, Maintenance, 10/04/22 11:57:00 EST, [facility], Partial fill upon patient [...] 0 Refills, Maintenance, 10/17/22 15:29:00 EST, Tablet, [facility], Partial fill upon pa... Start [...] 1 Refills, Maintenance, 09/06/22 22:51:00 EDT, Aerosol, [facility], Partial fill upon patient [...] Depression Confirmed Active History of laparoscopic appendectomy, [facility], dr combs 01/21/2020 Confirmed Active Uterine scar [...] Care Physician Member Role: PCP Address: Address: [address] [place] [id number] Name: Candie Bustamante RN Position: S RN Member Role: Primary Care Nurse Name: Rocio Brown RN Position: S RN Member Role: Primary Care Nurse Name: Yulissa Gonzales RN Position: S RN Member Role: Primary Care Nurse Address: Address: [address] [place] [address] [place] [address]- Name: Heather Youngblood RN Position: [facility] SN RN Member Role: Primary Care Nurse Care Team Related Persons Name: AMIRAKIRITCECIL Address: [place] [address] Name: AMANDA RESTREPO Address: home [address] [place] [address]
--- OUTSIDE RECORDS SUMMARY | 2023-02-13 07:58 | XMS_ITS | Continuity of Care Document ---
Author Name Unknown Organization [facility] Address [address] [place] [address]- Care Team Providers Care Soap Mixer Name Role Phone Felicita Melgar MD, I Primary Care Physician [phone] Encounter [facility] Date(s): 05/17/22 - 06/16/[address] [address]- Allergies, Adverse Reactions, Alerts Substance Reaction Severity [...] each, Refills 11, Tot. Refills 11, Maintenance, 02/01/22 12:08:00 EDT, Aerosol, Route to Pharmacy Electronically, [id number], [id number], 165, cm, 02/01/22 11:38:00 EDT, H... Start Date: 02/01/22 Stop Date: 01/27/23 Status: Ordered Biktarvy oral tablet 1 tablet, By Mouth, Daily, # 30 tablet, 11 Refills, Maintenance, 02/01/22 12:08:00 EDT, Tablet, [id number], 1 tablet By Mouth Daily,x30 days, 165, cm, 02/01/22 11:38:00 EDT, Height, 68, kg, 09/25/20 5:38:00 EST, Dry Weight Start Date: 02/01/22 Stop Date: 01/27/23 Status: Ordered Problem List Condition Effective Dates [...]
--- OUTSIDE RECORDS SUMMARY | 2023-02-13 07:58 | XMS_ITS | Continuity of Care Document ---
Author Name Unknown Organization [facility] Address [address] [place] [address]- Care Team Providers Care Towel Folder Name Role Phone Talia HANNON, Felicita Rivera Primary Care Physician [phone] Encounter [facility] Date(s): 10/17/22 - 11/16/[address] [address]- Allergies, Adverse Reactions, Alerts Substance Reaction Severity [...] Refills, Maintenance, 08/11/22 18:22:00 EDT, Solution, [id number], Partial fill upon patient request if the prescription is for a sc... Start Date: 08/11/22 Status: Ordered azithromycin 500 mg oral tablet = 500 mg, By Mouth, Daily, for 30 days, # 30 tablet, 1 Refills, Acute 12/09/22 12:42:00 EST, 10/10/22 12:42:00 EST, Tablet, [facility]/pharmacy #[id number], Partial fill upon patient request if the prescription is for a schedule II opioid drug., 160, cm, 08/11/22... Start Date: 10/10/22 Stop Date: 12/09/22 Status: Ordered Biktarvy oral tablet 1 tablet, By Mouth, Daily, pharmacy: please renew bikarvy. discontinue dolutegravir/truvada., # 30 tablet, 11 Refills, Maintenance, 09/06/22 17:29:00 EDT, Tablet, [facility], Partialfill upon patient request if the prescription is... Start Date: 09/06/22 Status: Ordered ethambutol 400 mg oral tablet 3 tablet = 1,200 mg, By Mouth, Daily, for 30 days, # 90 tablet, 3 Refills, Acute 02/28/23 15:48:00 EDT, 10/31/22 15:48:00 EST, Tablet, [facility], Partial fill upon patient request if the prescription is for a schedule II opioid drug.... Start Date: 10/31/22 Stop Date: 02/28/23 Status: Ordered gabapentin 100 mg oral capsule 100 mg, 1, capsule, By Mouth, 3 times a day, # 90 capsule, Refills 1, Tot. Refills 1, Maintenance, 08/11/22 16:31:00 EDT, [id number] Partial fill upon patient request if the prescription is for a schedule II... Start Date: 08/11/22 Stop Date: 10/10/22 Status: Ordered Nebulizer/Compressor See Instructions, # 1 each, Maintenance, disp nebulizer w all tubing to use with nebulized albuterol treatments dx J45.901, J18.9 ROBERT 99 fax to [facility] [address], 08/12/22 8:52:00 EDT, Supply Start Date: 08/12/22 Status: Ordered oxyCODONE 5 mg oral tablet 5 mg, 1, tablet, By Mouth, Every 6 hours, PRN, mass pat checked., # 30 tablet, Refills 0, Tot. Refills 0, Maintenance, pain in chest, 10/17/22 15:32:00 EST, Route to Pharmacy Electronically, [facility], Partial fill upon patient reque... Start Date: 10/17/22 Status: Ordered predniSONE 10 mg oral tablet 4 tablet = 40 mg, By Mouth, Daily, # 56 tablet, 1 Refills, Maintenance, 10/04/22 11:57:00 EST, [facility], Partial fill upon [...] 0 Refills, Maintenance, 10/17/22 15:29:00 EST, Tablet, [facility], Partial fill upon [...] 3 Refills, Maintenance, 10/31/22 15:48:00 EST, Aerosol, [facility], Partial fill upon [...] Depression Confirmed Active History of laparoscopic appendectomy, [facility], dr combs 01/21/2020 Confirmed Active Uterine scar x1 Confirmed Active Social History Social History Type Response Tobacco Use: 4 or less cigar ettes(less than 1/4 pack)/day in last 30 days. Sex Patient Care team information Care Team Personnel Name: Renzo Hernandez RN Position: [facility] RN Supv Member Role: Primary Care Nurse Name: Felicita Melgar MD, I Position: [facility] Primary Care Physician Member Role: PCP Address: Address: [address] [place] [address]- Name: Candie Bustamante RN Position: [facility] RN Member Role: Primary Care Nurse Name: Rocio Brown RN Position: [facility] RN Member Role: Primary Care Nurse Name: Yulissa Gonzales RN Position: [facility] RN Member Role: Primary Care Nurse Address: Address: [address] [place] [address]- Name: Heather Youngblood RN Position: [facility] SN RN Member Role: Primary Care Nurse Care Team Related Persons Name: CECIL COLLIER Address: [place] [address] Name: AMANDA RESTREPO Address: home [address] [place] [address]
--- OUTSIDE RECORDS SUMMARY | 2023-02-13 07:58 | XMS_ITS | Continuity of Care Document ---
Author Name Unknown Organization [facility] Address [address] [place] [address]- Care Team Providers Care Tumbler Drier Operator Name Role Phone Talia HANNON, Felicita Rivera Primary Care Physician [phone] Encounter [facility] Date(s): 10/11/22 - 11/10/[address] [address]- Attending Physician: Not on Staff, Attending MD Allergies, Adverse Reactions, Alerts Substance Reaction [...] Refills, Maintenance, 08/11/22 18:22:00 EDT, Solution, [id number], Partial fill upon patient request if the prescription is for a sc... Start Date: 08/11/22 Status: Ordered azithromycin 500 mg oral tablet = 500 mg, By Mouth, Daily, for 30 days, # 30 tablet, 1 Refills, Acute 12/09/22 12:42:00 EST, 10/10/22 12:42:00 EST, Tablet, [facility]/pharmacy #[id number], Partial fill upon patient request if the prescription is for a schedule II opioid drug., 160, cm, 08/11/22... Start Date: 10/10/22 Stop Date: 12/09/22 Status: Ordered Biktarvy oral tablet 1 tablet, By Mouth, Daily, pharmacy: please renew bikarvy. discontinue dolutegravir/truvada., # 30 tablet, 11 Refills, Maintenance, 09/06/22 17:29:00 EDT, Tablet, [facility], Partialfill upon patient request if the prescription is... Start Date: 09/06/22 Status: Ordered ethambutol 400 mg oral tablet 3 tablet = 1,200 mg, By Mouth, Daily, for 30 days, # 90 tablet, 3 Refills, Acute 02/28/23 15:48:00 EDT, 10/31/22 15:48:00 EST, Tablet, [facility], Partial fill upon patient request if the prescription is for a schedule II opioid drug.... Start Date: 10/31/22 Stop Date: 02/28/23 Status: Ordered gabapentin 100 mg oral capsule 100 mg, 1, capsule, By Mouth, 3 times a day, # 90 capsule, Refills 1, Tot. Refills 1, Maintenance, 08/11/22 16:31:00 EDT, Route to Pharmacy Electronically, [facility]/pharmacy #[id number], Partial fill upon patient request if the prescription is for a schedule II... Start Date: 08/11/22 Stop Date: 10/10/22 Status: Ordered Nebulizer/Compressor See Instructions, # 1 each, Maintenance, disp nebulizer w all tubing to use with nebulized albuterol treatments dx J45.901, J18.9 ROBERT 99 fax to [facility] [address], 08/12/22 8:52:00 EDT, Supply Start Date: 08/12/22 Status: Ordered oxyCODONE 5 mg oral tablet 5 mg, 1, tablet, By Mouth, Every 6 hours, PRN, mass pat checked., # 30 tablet, Refills 0, Tot. Refills 0, Maintenance, pain in chest, 10/17/22 15:32:00 EST, Route to Pharmacy Electronically, [facility], Partial fill upon patient reque... Start Date: 10/17/22 Status: Ordered predniSONE 10 mg oral tablet 4 tablet = 40 mg, By Mouth, Daily, # 56 tablet, 1 Refills, Maintenance, 10/04/22 11:57:00 EST, [facility], Partial fill upon patient [...] 0 Refills, Maintenance, 10/17/22 15:29:00 EST, Tablet, [facility], Partial fill upon pa... Start [...] 3 Refills, Maintenance, 10/31/22 15:48:00 EST, Aerosol, [facility], Partial fill upon patient [...] Depression Confirmed [facility] Confirmed Active Uterine scar x1 Confirmed Active Social History Social History Type Response Tobacco Use: 4 or less cigar ettes(less than 1/4 pack)/day in last 30 days. Sex Patient Care team information Care Team Personnel Name: Renzo Hernandez RN Position: [facility] RN Supv Member Role: Primary Care Nurse Name: Felicita Melgar MD, I Position: [facility] Primary Care Physician Member Role: PCP Address: Address: [address] [place] [address]- Name: Candie Bustamante RN Position: S RN Member Role: Primary Care Nurse Name: oRcio Brown RN Position: S RN Member Role: Primary Care Nurse Name: Yulissa Gonzales RN Position: [facility] RN Member Role: Primary Care Nurse Address: Address: [address] [place] [address]- Name: Heather Youngblood RN Position: [facility] RN Member Role: Primary Care Nurse Care Team Related Persons Name: CECIL COLLIER Address: [place] [address] Name: AMANDA RESTREPO Address: home [address] [place] [address]
--- OUTSIDE RECORDS SUMMARY | 2023-02-13 07:58 | XMS_ITS | Continuity of Care Document ---
Author Name Unknown Organization [facility] Address [address] [place] [address]- Care Team Providers Care Escort Car Driver Name Role Phone Talia HANNON, Felicita Rivera Primary Care Physician En[facility] AC[id number] Date(s): 05/14/20 - 06/13/[address] [address]- [facility] Attending Physician: Isabela Rivera Admitting Physician: Isabela [...] 14:51:18 EST, Aerosol, Route to Pharmacy Electronically, [id number], [facility]/pharmacy #[id number] Start Date: 09/26/19 Stop Date: 09/20/20 [...]
--- OUTSIDE RECORDS SUMMARY | 2023-02-13 07:58 | XMS_ITS | Continuity of Care Document ---
Author Name Unknown Organization [facility] Address [address] [place] [address]- Care Team Providers Care Children'S Nursery Assistant Name Role Phone Felicita Melgar MD, I Primary Care Physician Encounter [facility] Date(s): 07/26/22 - 09/01/[address] [address]- Attending Physician: Not on Staff, Attending MD Referring Physician: Felicita Melgar MD, I Allergies, [...] 12/09/22 12:42:00 EST, 10/10/22 12:42:00 EST, Tablet, [facility]/pharmacy #[id number], Partial fill upon patient request if the prescription is for a schedule II opioid drug., 160, cm, 08/11/22... Start Date: 10/10/22 Stop Date: 12/09/22 Status: Ordered dextromethorphan-guaifenesin 10 mg-100 mg/10 mL oral liquid 5 mL, By Mouth, Every 4 hours, PRN Cough, for 30 days, # 120 mL, 2 Refills, Acute 11/09/22 18:20:00EST, 08/11/22 18:20:00 EDT, Liquid, [id number] Partial fill upon patient request if the prescription is for a schedule II opioid drug., 5 mL B... Start Date: 08/11/22 Stop Date: 11/09/22 Status: Ordered docusate-senna 50 mg-8.6 mg oral capsule 2 capsule, By Mouth, Daily at bedtime, PRN Constipation, for 30 days, # 60 capsule, 2 Refills, Acute 11/09/22 18:20:00 EST, 08/11/22 18:20:00 EDT, Capsule, [facility]/pharmacy #[id number], Partial fill upon patient request if the prescription is for a schedule II... Start Date: 08/11/22 Stop Date: 11/09/22 Status: Ordered dolutegravir 50 mg oral tablet 1 tablet = 50 mg, By Mouth, Daily, # 30 tablet, 2 Refills, Maintenance, 08/12/22 9:53:00 EDT, Tablet, [facility] [...] 08/11/22 16:31:00 EDT, Route to Pharmacy Electronically, [facility]/pharmacy #[id number], Partial fill upon patient request if the prescription is for a schedule II... Start Date: 08/11/22 Stop Date: 10/10/22 Status: Ordered MiraLax oral powder for reconstitution = 17 Gm, By Mouth, Daily, PRN Constipation, for 30 days, dissolve in water before taking, # 527 Gm,2 Refills, Acute 11/09/22 18:20:00 EST, 08/11/22 18:20:00 EDT, REC Powder, [facility]/pharmacy #[id number], Partial fill upon patient request if the prescription is... Start Date: 08/11/22 Stop Date: 11/09/22 Status: Ordered Nebulizer/Compressor See Instructions, # 1 each, Maintenance, disp nebulizer w all tubing to use with nebulized albuterol treatments dx J45.901, J18.9 ROBERT 99 fax to [facility] [address], 08/12/22 8:52:00 EDT, Supply Start Date: 08/12/22 Status: Ordered rifabutin 150 mg oral capsule 2 capsule = 300 mg, By Mouth, Daily, for 30 days, # 60 capsule, 2 Refills, Acute 11/10/22 9:53:00 EST, 08/12/22 9:53:00 EDT, Capsule, [facility], Partial fill upon patient request ifthe prescription is for a schedule II opioid drug.,... Start Date: 08/12/22 Stop Date: 11/10/22 Status: Ordered Truvada 200 mg-300 mg oral tablet 1 tablet, By Mouth, Daily, # 90 tablet, 0 Refills, Maintenance, 08/11/22 16:35:00 EDT, Tablet, [facility]/pharmacy #[id number], Partial fill upon patient [...] 08/11/22 18:20:00 EDT, Route to Pharmacy Electronically, [facility]/pharmacy #[id number], Partial fill upon patient [...] Depression Confirmed Active History of laparoscopic appendectomy, [facility], dr combs 01/21/2020 Confirmed Active Uterine scar x1 Confirmed Active Social History Social History Type Response Tobacco Use: 4 or less cigar ettes(less than 1/4 pack)/day in last 30 days. Sex Patient Care team information Personnel Name: Felicita Melgar MD, I Address: Address: [address] [place] [address]
--- OUTSIDE RECORDS SUMMARY | 2023-02-13 07:58 | XMS_ITS | Continuity of Care Document ---
Author Name Unknown Organization [facility] Address [address] [place] [address]- Care Team Providers Care Language Interpreter Name Role Phone Talia HANNON, Felicita Rivera Primary Care Physician Encounter [facility] Date(s): 06/24/22 - 07/24/[address] [address]- Allergies, Adverse Reactions, Alerts Substance Reaction Severity [...] 18:16:00 EDT, Aerosol, Route to Pharmacy Electronically, NCPDP_[id number], [facility], 165, cm, 05/16/22 22:59:00 EDT, Height, 70,... Start Date: 06/29/22 Stop Date: 06/24/23 Status: Ordered atovaquone 750 mg/5 mL oral suspension 5 mL = 750 mg, By Mouth, 2 times a day, # 300 mL, 11 Refills, Maintenance, 06/29/22 12:16:00 EDT, Suspension, [facility], Partial fill upon patient request if the prescription is fora schedule II opioid drug., 165, cm, 05/16/22 22:59... Start Date: 06/29/22 Status: Ordered azithromycin 500 mg oral tablet 1 tablet = 500 mg, By Mouth, Daily, # 7 tablet, 0 Refills, Maintenance, 07/24/22 13:37:00 EDT, Tablet, Partial fill upon patient request if the prescription is for a schedule II opioid drug. Start Date: 07/24/22 Stop Date: 07/31/22 Status: Ordered Biktarvy oral tablet 1 tablet, By Mouth, Daily, # 30 tablet, 11 Refills, Maintenance, 06/29/22 18:16:00 EDT, Tablet, [facility], 1 tablet By Mouth Daily,x30 days, 165, cm, 05/16/22 22:59:00 EDT, Height, 70, kg, 05/16/22 22:59:00 EDT, Dry Weight Start Date: 06/29/22 Stop Date: 06/24/23 Status: Ordered cefuroxime 500 mg oral tablet 1 tablet = 500 mg, By Mouth, 2 times a day, # 14 tablet, 0 Refills, Maintenance, 07/24/22 13:37:00 EDT, Tablet, Partial fill upon patient request if the prescription is for a schedule II opioid drug. Start Date: 07/24/22 Stop Date: 07/31/22 Status: Ordered Eliquis 5 mg oral tablet TAKE 2 TABLETS TWICE A DAY FOR 4 MORE DAYS THEN DECREASE TO 5MG TWICE A DAY Start Date: 07/24/22 Status: Ordered ibuprofen 800 mg oral tablet 800 mg, 1, tablet, By Mouth, 3 times a day, PRN, for 7 days, take with food, # 21 tablet, Refills 0, Tot. Refills 0, Acute 07/28/22 11:12:00 EDT, for pain, 07/21/22 11:12:00 EDT, Route to Pharmacy Electronically, [facility]/pharmacy #[id number], Partial fill upon... Start Date: 07/21/22 Stop [...] Depression(Confirmed) Active [facility] combs 01/21/2020(Confirmed) Active Uterine scar x1(Confirmed) Active Social History Social History Type Response Smoking Status Former smoker entered on: 10/27/16 Sex Care Team Personnel Name: Felicita Melgar MD, I Address: [address] [place] [address]
--- OUTSIDE RECORDS SUMMARY | 2023-02-13 07:58 | XMS_ITS | Continuity of Care Document ---
Author Name Unknown Organization [facility] Address [address] [place] [address]- Care Team Providers Care Regional Guide Name Role Phone Felicita Melgar MD, I Primary Care Physician Encounter [facility] Date(s): 11/02/22 - 12/08/[address] [address]- Attending Physician: Felicita Melgar MD, I Admitting [...] Refills, Maintenance, 08/11/22 18:22:00 EDT, Solution, [id number], Partial fill upon patient request if the prescription is for a sc... Start Date: 08/11/22 Status: Ordered atovaquone 750 mg/5 mL oral suspension 10 mL = 1,500 mg, By Mouth, Daily, for 30 days, with meals, # 300 mL, 11 Refills, Acute 11/27/23 14:58:00 EST, 12/02/22 14:58:00 EST, Suspension, [facility], Partial fill upon patient request if the prescription is for a schedule II o... Start Date: 12/02/22 Stop Date: 11/27/23 Status: Ordered azithromycin 500 mg oral tablet 1 tablet = 500 mg, By Mouth, Daily, for 30 days, # 30 tablet, 5 Refills, Acute 05/31/23 14:52:00 EDT, 12/02/22 14:52:00 EST, Tablet, [facility], Partial fill upon patient request if the prescription is for a schedule II opioid drug.,... Start Date: 12/02/22 Stop Date: 05/31/23 Status: Ordered Biktarvy oral tablet 1 tablet, By Mouth, Daily, # 30 tablet, 11 Refills, Maintenance, 12/02/22 14:52:00 EST, Tablet, [facility], Partial fill upon patient request if the prescription is for a schedule IIopioid drug., 1 tablet By Mouth Daily,x30 days, 165... Start Date: 12/02/22 Stop Date: 11/27/23 Status: Ordered ethambutol 400 mg oral tablet 3 tablet = 1,200 mg, By Mouth, Daily, for 30 days, # 90 tablet, 5 Refills, Acute 05/31/23 14:52:00 EDT, 12/02/22 14:52:00 EST, Tablet, [facility], Partial fill upon patient request if the prescription is for a schedule II opioid drug.... 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 Sex Patient Care team information Care Team Personnel Name: Renzo Hernandez RN Position: [facility] RN Supv Member Role: Primary Care Nurse Name: Felicita Melgar MD, I Position: [facility] Primary Care Physician Member Role: PCP Address: Address: [address] [place] [address]- Name: Candie Bustamante RN Position: S RN Member Role: Primary Care Nurse Name: Rocio Brown RN Position: S RN Member Role: Primary Care Nurse Name: Yulissa Gonzaels RN Position: S RN Member Role: Primary Care Nurse Address: Address: [address] [place] [id number] [[email or web address]] Name: Heather Youngblood RN Position: [facility] SN RN Member Role: Primary Care Nurse Care Team Related Persons Name: CECIL COLLIER Address: [place] [address] Name: AMANDA RESTREPO Address: home [address] [address]
--- OUTSIDE RECORDS SUMMARY | 2023-02-13 07:58 | XMS_ITS | Continuity of Care Document ---
Author Name Unknown Organization [facility] Address [address] [place] [address]- Care Team Providers Care Supervisor Paint Department Name Role Phone Felicita Melgar MD, I Primary Care Physician [place] [facility] [place]16[place] - 03/18/[address] [address]- Allergies, Adverse Reactions, Alerts Substance Reaction Severity Status doxycycline itchy rash Active Bactrim Dairy food intake Active Immunizations Given and Recorded Vaccine Date Status Refusal Reason tetanus/diphtheria/pertussis, acel(Tdap) 02/16/17 Given Medications albuterol CFC free 90 mcg/inh inhalation aerosol 2, puffs, Inhalation, 4 times a day, PRN, # 1 each, Refills 11, Tot. Refills 11, Maintenance, 09/26/19 14:51:18 EST, Aerosol, Route to Pharmacy Electronically, [id number], [id number] Start Date: 09/26/19 Stop Date: [...] Depression(Confirmed) [facility](Confirmed) Active Uterine scar x1(Confirmed) Active Social History Social History Type Response Smoking Status Former smoker entered on: 10/27/16 Sex
--- OUTSIDE RECORDS SUMMARY | 2023-02-13 07:58 | XMS_ITS | Continuity of Care Document ---
Author Name Unknown Organization [facility] Address [address] [place] [address]- Care Team Providers Care Physician [facility] Name Role Phone Talia HANNON, Felicita Rivera Primary Care Physician [phone] Encounter [facility] Date(s): 02/24/22 - 03/26/[address] [address]- Allergies, Adverse Reactions, Alerts Substance Reaction Severity [...] 12:08:00 EDT, Aerosol, Route to Pharmacy Electronically, [id number], [facility]/pharmacy #[id number], 165, cm, 02/01/22 11:38:00 EDT, H... Start Date: 02/01/22 Stop Date: 01/27/23 Status: Ordered atovaquone 750 mg/5 mL oral suspension 5 mL = 750 mg, By Mouth, 2 times a day, for 30 days, # 300 mL, 1 Refills, Acute 04/02/22 12:10:00 EDT, 02/01/22 12:10:00 EDT, Suspension, [id number], Partial fill upon patient request if the prescription is for a schedule II opioid drug., 165,... Start Date: 02/01/22 Stop Date: 04/02/22 Status: Ordered Biktarvy oral tablet 1 tablet, By Mouth, Daily, # 30 tablet, 11 Refills, Maintenance, 02/01/22 12:08:00 EDT, Tablet, [id number], 1 tablet By Mouth Daily,x30 days, 165, cm, 02/01/22 11:38:00 EDT, Height, 68, kg, 09/25/20 5:38:00 EST, Dry Weight Start Date: 02/01/22 Stop Date: 01/27/23 Status: Ordered diphenhydrAMINE 25 mg oral capsule [...]
--- OUTSIDE RECORDS SUMMARY | 2023-02-13 07:58 | XMS_ITS | Continuity of Care Document ---
Author Name Unknown Organization [facility] Address [address] [place] [address]- Care Team Providers Care Hot Wort Settler Name Role Phone Felicita Melgar MD, I Primary Care Physician [place] [facility] [place] 10/10/19 - 11/28/[address] [address]- [facility] Attending Physician: Felicita Melgar MD, I Admitting [...] 14:51:18 EST, Aerosol, Route to Pharmacy Electronically, [id number], [facility]/pharmacy #[id number] Start Date: 09/26/19 Stop Date: 09/20/20 Status: [...]
--- OUTSIDE RECORDS SUMMARY | 2023-02-13 07:58 | XMS_ITS | Continuity of Care Document ---
Author Name Unknown Organization [facility] Address [address] [place] [address]- Care Team Providers Care Independent Contractor Name Role Phone Felicita Melgar MD, I Primary Care Physician Encounter [facility] Date(s): 08/12/22 - 09/11/[address] [address]- Allergies, Adverse Reactions, Alerts Substance Reaction Severity [...] 11 Refills, Maintenance, 09/06/22 17:29:00 EDT, Tablet, [facility], Partialfill upon patient request if the prescription is... Start Date: 09/06/22 Status: Ordered dextromethorphan-guaifenesin 10 mg-100 mg/10 mL oral liquid 5 mL, By Mouth, Every 4 hours, PRN Cough, for 30 days, # 120 mL, 2 Refills, Acute 11/09/22 18:20:00EST, 08/11/22 18:20:00 EDT, Liquid, [facility]/pharmacy #[id number], Partial fill upon patient [...] 11/10/22 9:53:00 EST, 08/12/22 9:53:00 EDT, Tablet, [facility], Partial fill upon patient request if the prescription is for a schedule II opioid drug.,... Start Date: 08/12/22 Stop Date: 11/10/22 Status: Ordered gabapentin 100 mg oral capsule 100 mg, 1, capsule, By Mouth, 3 times a day, # 90 capsule, Refills 1, Tot. Refills 1, Maintenance, 08/11/22 16:31:00 EDT, Route to Pharmacy Electronically, [facility]/pharmacy #[id number], Partial fill upon patient request if the prescription is for a schedule II... Start Date: 08/11/22 Stop Date: 10/10/22 Status: Ordered MiraLax oral powder for reconstitution = 17 Gm, By Mouth, Daily, PRN Constipation, for 30 days, dissolve in water before taking, # 527 Gm,2 Refills, Acute 11/09/22 18:20:00 EST, 08/11/22 18:20:00 EDT, REC Powder, [facility]/pharmacy #[id number], Partial fill upon patient request if the prescription is... Start Date: 08/11/22 Stop Date: 11/09/22 Status: Ordered Nebulizer/Compressor See Instructions, # 1 each, Maintenance, disp nebulizer w all tubing to use with nebulized albuterol treatments dx J45.901, J18.9 ROBERT 99 fax to [employer] [address], 08/12/22 8:52:00 EDT, Supply Start Date: 08/12/22 Status: Ordered Ventolin HFA 108 mcg/inh inhalation aerosol with adapter 2 puffs, Inhalation, 4 times a day, PRN Wheezing/Shortness of Breath, # 1 each, 1 Refills, Maintenance, 09/06/22 22:51:00 EDT, Aerosol, [facility], Partial fill upon patient [...] Depression Confirmed Active History of laparoscopic appendectomy, [place] dr garret garcia 01/21/2020 Confirmed Active Uterine scar x1 Confirmed Active Social History Social History Type Response Tobacco Use: 4 or less cigar ettes(less than 1/4 pack)/day in last 30 days. Sex Patient Care team information Personnel Name: Felicita Melgar MD, I Address: Address: [address] [place] [address]
--- OUTSIDE RECORDS SUMMARY | 2023-02-13 07:58 | XMS_ITS | Continuity of Care Document ---
Author Name Unknown Organization [facility] ter Address [address] [place] [address]- Care Team Providers Care Orchid Transplanter Name Role Phone Felicita Melgar MD, I Primary Care Physician [phone] [place] [facility] Date(s): 10/14/19 - 11/23/[address] [address]- [place] Attending Physician: Felicita Melgar MD, I Admitting [...] 14:51:18 EST, Aerosol, Route to Pharmacy Electronically, [id number], [facility]/pharmacy #[id number] Start Date: 09/26/19 Stop Date: 09/20/20 Status: [...]
--- OUTSIDE RECORDS SUMMARY | 2023-02-13 07:58 | XMS_ITS | Continuity of Care Document ---
Author Name Unknown Organization [facility] Address [address] [place] [address]- Care Team Providers Care Research Consultant Name Role Phone Felicita Melgar MD, I Primary Care Physician [phone] Encounter [facility] Date(s): 09/09/22 - 10/09/[address] [address]- Allergies, Adverse Reactions, Alerts Substance Reaction Severity [...] Refills, Maintenance, 08/11/22 18:22:00 EDT, Solution, [id number], Partial fill upon patient request if the [...] 11 Refills, Maintenance, 09/06/22 17:29:00 EDT, Tablet, [facility], Partialfill upon patient request [...] 11/10/22 9:53:00 EST, 08/12/22 9:53:00 EDT, Tablet, [facility], Partial fill upon patient request if the prescription is for a schedule II opioid drug.,... Start Date: 08/12/22 Stop Date: 11/10/22 Status: Ordered gabapentin 100 mg oral capsule 100 mg, 1, capsule, By Mouth, 3 times a day, # 90 capsule, Refills 1, Tot. Refills 1, Maintenance, 08/11/22 16:31:00 EDT, Route to Pharmacy Electronically, [facility]/pharmacy #[id number], Partial fill upon patient request if the prescription is for a schedule II... Start Date: 08/11/22 Stop Date: 10/10/22 Status: Ordered MiraLax oral powder for reconstitution = 17 Gm, By Mouth, Daily, PRN Constipation, for 30 days, dissolve in water before taking, # 527 Gm,2 Refills, Acute 11/09/22 18:20:00 EST, 08/11/22 18:20:00 EDT, REC Powder, [facility]/pharmacy #[id number], Partial fill upon patient request if the prescription is... Start Date: 08/11/22 Stop Date: 11/09/22 Status: Ordered Nebulizer/Compressor See Instructions, # 1 each, Maintenance, disp nebulizer w all tubing to use with nebulized albuterol treatments dx J45.901, J18.9 ROBERT 99 fax to [facility] [address], 08/12/22 8:52:00 EDT, Supply Start Date: 08/12/22 Status: Ordered oxyCODONE 5 mg oral tablet 5 mg, 1, tablet, By Mouth, Every 6 hours, PRN, mass pat checked., # 30 tablet, Refills 0, Tot. Refills 0, Maintenance, pain in chest, 10/04/22 11:58:00 EST, Route to Pharmacy Electronically, [facility], Partial fill upon patient reque... Start Date: 10/04/22 Status: Ordered predniSONE 10 mg oral tablet 4 tablet = 40 mg, By Mouth, Daily, # 56 tablet, 1 Refills, Maintenance, 10/04/22 11:57:00 EST, [facility], Partial fill upon patient request if the prescription is for a schedule II opioid drug., 165, cm, 10/04/22 11:55:00 EST, Height... Start Date: 10/04/22 Stop Date: 11/01/22 Status: Ordered predniSONE 10 mg oral tablet See Instructions, 6 tabs/d for 5d then 5 tabs/d for 5d then 4 tabs/d, # 100 tablet, 0 Refills, Maintenance, 10/07/22 15:12:00 EST, Tablet, [facility], Partial fill upon patient request if the prescription is for a schedule II opioid d... Start Date: 10/07/22 Status: Ordered Symbicort 160mcg/4.5mcg Inhaler 2, puffs, [...] 1 Refills, Maintenance, 09/06/22 22:51:00 EDT, Aerosol, [facility], [...] Care team information Care Team Personnel Name: Felicita Melgar MD, I Position: [facility] Primary Care Physician Member Role: PCP Address: Address: [address] [place] [address]- [place] Name: Candie Bustamante RN Position: S RN Member Role: Primary Care Nurse Name: Rocio Brown RN Position: S RN Member Role: Primary Care Nurse Name: Yulissa Gonzales RN Position: S RN Member Role: Primary Care Nurse Address: Address: [address] [place] [address]- Name: Heather Youngblood RN Position: [facility] RN Member Role: Primary Care Nurse Care Team Related Persons Name: CECIL COLLIER Address: [place] [address] Name: AMANDA RESTREPO Address: home [address] [place] [address]
--- OUTSIDE RECORDS SUMMARY | 2023-02-13 07:58 | XMS_ITS | Continuity of Care Document ---
Author Name Unknown Organization [facility] Address [address] [place] [address]- Care Team Providers Care Nailer Machine Name Role Phone Felicita Melgar MD, I Primary Care Physician En[facility] Date(s): 06/20/22 - 07/28/[address] [address]- Attending Physician: Felicita Melgar MD, I Admitting Physician: Felicita Melgar MD, I Allergies, Adverse [...] 18:16:00 EDT, Aerosol, Route to Pharmacy Electronically, NCPDP_[id number], [facility], 165, cm, 05/16/22 22:59:00 EDT, Height, 70,... Start Date: 06/29/22 Stop Date: 06/24/23 Status: Ordered atovaquone 750 mg/5 mL oral suspension 5 mL = 750 mg, By Mouth, 2 times a day, # 300 mL, 11 Refills, Maintenance, 06/29/22 12:16:00 EDT, Suspension, [facility], Partial fill upon patient [...] 11 Refills, Maintenance, 06/29/22 18:16:00 EDT, Tablet, [facility], 1 tablet By Mouth [...] A DAY Start Date: 07/24/22 Status: Ordered tub chair tub chair, See [...] Depression(Confirmed) Active History of laparoscopic appe ndectomy, [place], dr combs 01/21/2020(Confirmed) Active Uterine scar x1(Confirmed) Active Social History Social History Type Response Smoking Status Former smoker entered on: 10/27/16 Sex Care Team Personnel Name: Talia HANNON, Felicita Rivera Address: [address] [place] [address]-
--- OUTSIDE RECORDS SUMMARY | 2023-02-13 07:58 | XMS_ITS | Continuity of Care Document ---
Author Name Unknown Organization [facility] Address [address] [place] [address]- Care Team Providers Care Small Craft Operator Name Role Phone Talia HANNON, Felicita Rivera Primary Care Physician [phone] Encounter [facility] Date(s): 03/17/22 - 04/16/[address] [address]- Allergies, Adverse Reactions, Alerts Substance Reaction Severity [...] 12:08:00 EDT, Aerosol, Route to Pharmacy Electronically, [id number], [id number], 165, cm, 02/01/22 11:38:00 EDT, H... Start Date: 02/01/22 Stop Date: 01/27/23 Status: Ordered Biktarvy oral tablet 1 tablet, By Mouth, Daily, # 30 tablet, 11 Refills, Maintenance, 02/01/22 12:08:00 EDT, Tablet, [id number], 1 tablet By Mouth Daily,x30 days, 165, [...] Depression(Confirmed) [facility](Conf[facility]) Active Uterine scar x1(Confirmed) Active Social History Social History Type Response Smoking Status Former smoker entered on: 10/27/16 Sex
--- OUTSIDE RECORDS SUMMARY | 2023-02-13 07:58 | XMS_ITS | Continuity of Care Document ---
Author Name Unknown Organization [facility] Address [address] [place] [address]- Care Team Providers Care Acute Dialysis Registered Nurse Name Role Phone Talia HANNON, Felicita Rivera Primary Care Physician [phone] Encounter [facility] Date(s): 06/19/22 - 07/19/[address] [address]- Allergies, Adverse Reactions, Alerts Substance Reaction Severity [...] 18:16:00 EDT, Aerosol, Route to Pharmacy Electronically, NCPDP_[id number], [facility], 165, cm, 05/16/22 22:59:00 EDT, Height, 70,... Start Date: 06/29/22 Stop Date: 06/24/23 Status: Ordered atovaquone 750 mg/5 mL oral suspension 5 mL = 750 mg, By Mouth, 2 times a day, # 300 mL, 11 Refills, Maintenance, 06/29/22 12:16:00 EDT, Suspension, [facility], Partial fill upon patient request if the prescription is fora schedule II opioid drug., 165, cm, 05/16/22 22:59... Start Date: 06/29/22 Status: Ordered Biktarvy oral tablet 1 tablet, By Mouth, Daily, # 30 tablet, 11 Refills, Maintenance, 06/29/22 18:16:00 EDT, Tablet, [facility], 1 tablet By Mouth Daily,x30 days, 165, cm, 05/16/22 22:59:00 EDT, Height, 70, kg, 05/16/22 22:59:00 EDT, Dry Weight Start Date: 06/29/22 Stop Date: 06/24/23 Status: Ordered tub chair tub chair, See [...] Depression(Confirmed) Active History of laparoscopic appe ndectomy, [facility] [place], dr combs 01/21/2020(Confirmed) Active Uterine scar x1(Confirmed) Active Social History Social History Type Response Smoking Status Former smoker entered on: 10/27/16 Sex Care Team Personnel Name: Felicita Melgar MD, I Address: [address] [place] [address]-
--- OUTSIDE RECORDS SUMMARY | 2023-02-13 07:58 | XMS_ITS | Continuity of Care Document ---
Author Name Unknown Organization [facility] Address [address] [place] [address]- Care Team Providers Care Special Needs Babysitter Name Role Phone Felicita Melgar MD, I Primary Care Physician [phone] [place] [facility] [place]06[place] - 03/09/[address] [address]- Attending Physician: Felicita Melgar MD, I Admitting [...] 12:08:00 EDT, Aerosol, Route to Pharmacy Electronically, [id number], [facility]/pharmacy #[id number], 165, cm, 02/01/22 11:38:00 EDT, H... [...] Depression(Confirmed) [facility] Active Uterine scar x1(Confirmed) Active Social History Social History Type Response Smoking Status Former smoker entered on: 10/27/16 Sex
--- OUTSIDE RECORDS SUMMARY | 2023-02-13 07:58 | XMS_ITS | Continuity of Care Document ---
Author Name Unknown Organization [facility] Address [address] [place] [address]- Care Team Providers Care Radio Repairer Name Role Phone Talia HANNON, Felicita Rivera Primary Care Physician En[place] [id number] Date(s): 03/15/22 - 04/14/[address] [address]- Attending Physician: Isabela Rivera Admitting Physician: AdmIsabela [...] 12:08:00 EDT, Aerosol, Route to Pharmacy Electronically, [id number], [facility]/pharmacy #[id number], 165, cm, 02/01/22 11:38:00 EDT, H... Start [...] 0 Refills, Maintenance, 09/28/20 10:50:00 EST, [id number], 165, cm, 09/25/20 5:38:00 EST, Height, 68, [...] Depression(Confirmed) Active History of laparoscopic appe ndectomy, [facility], dr combs 01/21/2020(Confirmed) Active Uterine scar x1(Confirmed) Active Social History Social History Type Response Smoking Status Former smoker entered on: 10/27/16 Sex
--- OUTSIDE RECORDS SUMMARY | 2023-02-13 07:58 | XMS_ITS | Continuity of Care Document ---
Author Name Unknown Organization [facility] Address [address] [place] [address]- Care Team Providers Care Chart Computer Name Role Phone Felicita Melgar MD, I Primary Care Physician En[place] [facility] [place](s): 10/19/22 - 11/24/[address] [address]- Attending Physician: Felicita Melgar MD, I Admitting Physician: Felicita Melgar MD, I Referring Physician: Felicita Melgar MD, I Allergies, Adverse Reactions, Alerts Substance Reaction Severity Status doxycycline itchy rash Active dapsone 09/2019 developed rash on dapsone/trimeth oprim Active Bactrim Dairy food intake Active rifabutin severe arthralgias Active Immunizations Given and Recorded Vaccine Date [...] Refills, Maintenance, 08/11/22 18:22:00 EDT, Solution, [id number], Partial fill upon patient request if the prescription is for a sc... Start Date: 08/11/22 Status: Ordered azithromycin 500 mg oral tablet = 500 mg, By Mouth, Daily, for 30 days, # 30 tablet, 1 Refills, Acute 12/09/22 12:42:00 EST, 10/10/22 12:42:00 EST, Tablet, [facility]/pharmacy #[id number], Partial fill upon patient request if the prescription is for a schedule II opioid drug., 160, cm, 08/11/22... Start Date: 10/10/22 Stop Date: 12/09/22 Status: Ordered Biktarvy oral tablet 1 tablet, By Mouth, Daily, pharmacy: please renew bikarvy. discontinue dolutegravir/truvada., # 30 tablet, 11 Refills, Maintenance, 09/06/22 17:29:00 EDT, Tablet, [facility], Partialfill upon patient request if the prescription is... Start Date: 09/06/22 Status: Ordered ethambutol 400 mg oral tablet 3 tablet = 1,200 mg, By Mouth, Daily, for 30 days, # 90 tablet, 3 Refills, Acute 02/28/23 15:48:00 EDT, 10/31/22 15:48:00 EST, Tablet, [facility], Partial fill upon patient request if the prescription is for a schedule II opioid drug.... Start Date: 10/31/22 Stop Date: 02/28/23 Status: Ordered gabapentin 100 mg oral capsule 100 mg, 1, capsule, By Mouth, 3 times a day, # 90 capsule, Refills 1, Tot. Refills 1, Maintenance, 08/11/22 16:31:00 EDT, Route to Pharmacy Electronically, [facility]/pharmacy #[id number], Partial fill upon patient request if the prescription is for a schedule II... Start Date: 08/11/22 Stop Date: 10/10/22 Status: Ordered Nebulizer/Compressor See Instructions, # 1 each, Maintenance, disp nebulizer w all tubing to use with nebulized albuterol treatments dx J45.901, J18.9 ROBERT 99 fax to [email or web address] [address], 08/12/22 8:52:00 EDT, Supply Start Date: 08/12/22 Status: Ordered oxyCODONE 5 mg oral tablet 5 mg, 1, tablet, By Mouth, Every 6 hours, PRN, mass pat checked., # 30 tablet, Refills 0, Tot. Refills 0, Maintenance, pain in chest, 10/17/22 15:32:00 EST, Route to Pharmacy Electronically, [facility], Partial fill upon patient reque... Start Date: 10/17/22 Status: Ordered predniSONE 10 mg oral tablet 4 tablet = 40 mg, By Mouth, Daily, # 56 tablet, 1 Refills, Maintenance, 10/04/22 11:57:00 EST, [facility], Partial fill upon patient request if [...] 0 Refills, Maintenance, 10/17/22 15:29:00 EST, Tablet, [facility], Partial fill upon pa... Start Date: [...] 3 Refills, Maintenance, 10/31/22 15:48:00 EST, Aerosol, [facility], Partial fill upon patient request if [...] Nurse Name: Felicita Melgar MD, I Position: [facility] Primary Care Physician Member Role: PCP Address: Address: [address] [place] [address]- Name: Candie Bustamante RN Position: S RN Member Role: Primary Care Nurse Name: Rocio Brown RN Position: S RN Member Role: Primary Care Nurse Name: Yulissa Gonzales RN Position: S RN Member Role: Primary Care Nurse Address: Address: [address] [place] [address]- Name: Heather Youngblood RN Position: [facility] RN Member Role: Primary Care Nurse Care Team Related Persons Name: CECIL COLLIER Address: [place] [address] Name: AMANDA RESTREPO Address: home [address] [place] [id number]
--- OUTSIDE RECORDS SUMMARY | 2023-02-13 07:58 | XMS_ITS | Continuity of Care Document ---
Author Name Unknown Organization [facility] Address [address] [place] [address]- Care Team Providers Care Azure Principal Solution Specialist Name Role Phone Felicita Melgar MD, I Primary Care Physician Encounter [facility] [place] Date(s): 09/28/20 - 10/28/[address] [address]- Allergies, Adverse Reactions, Alerts Substance Reaction Severity Status doxycycline itchy rash Active Bactrim Dairy food intake Active Immunizations Given and Recorded Vaccine Date Status Refusal Reason tetanus/diphtheria/pertussis, acel(Tdap) 02/16/17 Given Medications albuterol CFC free 90 mcg/inh inhalation aerosol 2, puffs, Inhalation, 4 times a day, PRN, # 1 each, Refills 11, Tot. Refills 11, Maintenance, 09/26/19 14:51:18 EST, Aerosol, Route to Pharmacy Electronically, [id number], [id number] Start Date: 09/26/19 Stop Date: [...]
--- OUTSIDE RECORDS SUMMARY | 2023-02-13 07:58 | XMS_ITS | Continuity of Care Document ---
Author Name Unknown Organization [facility] Address [address] [place] [address]- Care Team Providers Care Hand Presser Name Role Phone Felicita Melgar MD, I Primary Care Physician [phone] [place]counter [facility] [place](s): 07/24/22 - 07/24/[address] [address]- Encounter Diagnosis Pneumonia(Final) - 07/24/22 HIV disease(Final) - 07/24/22 Pulmonary embolism(Final) - 07/24/22 Discharge Disposition: A-D/C Home Attending Physician: Kelvin Paiz MD, Kwaku Thomas Admitting Physician: Kelvin Paiz MD, Kwaku Thomas Referring Physician: Not on Staff, Referring MD Allergies, Adverse Reactions, Alerts Substance Reaction [...] 18:16:00 EDT, Aerosol, Route to Pharmacy Electronically, NCPDP_[id number], [facility], 165, cm, 05/16/22 22:59:00 EDT, Height, 70,... Start Date: 06/29/22 Stop Date: 06/24/23 Status: Ordered atovaquone 750 mg/5 mL oral suspension 5 mL = 750 mg, By Mouth, 2 times a day, # 300 mL, 11 Refills, Maintenance, 06/29/22 12:16:00 EDT, Suspension, [facility], Partial fill upon patient [...] 11 Refills, Maintenance, 06/29/22 18:16:00 EDT, Tablet, [facility], 1 tablet By Mouth Daily,x30 days, [...] 07/21/22 11:12:00 EDT, Route to Pharmacy Electronically, [facility]/pharmacy #[id number], Partial fill upon... Start Date: 07/21/22 Stop [...] man 01/21/2020(Confirmed) Active Uterine scar x1(Confirmed) Active Results Radiology Reports * Exam Date Time Procedure Performing Provider Status 07/24/22 3:26 AM Chest Portable Sheree Tang (Verified) Notes: (Chest Portable) Reason For Exam: Shortness of Breath RESULT: Chest Portable Chest Portable Reason: Shortness of Breath; Clinical Question(s): Pneumonia COMPARISON: 05/16/2022 FINDINGS: LINES AND TUBES: None. LUNGS AND PLEURA: Clear lungs. Normal pulmonary vascularity. No pleural effusion. No pneumothorax. HEART, MEDIASTINUM AND COREY: Heart is normal in size. Normal upper mediastinal and hilar contour. BONES AND SOFT TISSUES: No acute abnormality. IMPRESSION: No acute abnormality. WSN: [id number] Ordering Physician: Perla Gutierrez Dictated By: Joseph Bowers MD Dictated Date/Time: 07/24/22 9:35 am Reviewed By: Joseph Bowers MD Signed By: Joseph Bowers MD Signed Date/Time: 07/24/22 9:35 am Transcribed By: JIMMY Transcribed Date/Time: 07/24/22 9:34 am Vital Signs Most recent to oldest [Reference Range]: 1 2 3 Oxygen Saturation [94-100 %] 100 % (07/24/22 11:51 AM) 100 % (07/24/22 9:40 AM) 98 % (07/24/22 7:40 AM) Pulse Rate [55-90 bpm] 93 bpm *H* (07/24/22 11:51 AM) 75 bpm (07/24/22 9:40 AM) 75 bpm (07/24/22 7:40 AM) Blood Pressure [90-138/55-84 mm Hg] 112/73mm Hg (07/24/22 11:51 AM) 110/79mm Hg (07/24/22 9:40 AM) 104/68mm Hg (07/24/22 7:40 AM) Respiratory Rate [16-30 br/min] 18 br/min (07/24/22 11:51 AM) 17 br/min (07/24/22 9:40 AM) 18 br/min (07/24/22 7:40 AM) Temperature [96.8-100.4 DegF] 97.8 DegF (07/24/22 11:51 AM) 98.1 DegF (07/24/22 6:46 AM) 99.0 DegF (07/24/22 2:23 AM) Mode of Delivery (Oxygen) Room air (07/24/22 11:51 AM) Room air (07/24/22 9:40 AM) Room air (07/24/22 7:40 AM) Blood pressure sites Arm, left (07/24/22 6:17 AM) Arm, left (07/24/22 4:20 AM) Arm, left (07/24/22 2:23 AM) Temperature Route Oral (07/24/22 11:51 AM) Oral (07/24/22 6:46 AM) Oral (07/24/22 1:34 AM) Social History Social History Type Response Smoking Status Former smoker entered on: 10/27/16 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 LUNGS AND PLEURA: Clear lungs. Normal pulmonary vascularity. No pleural effusion. No pneumothorax. HEART, MEDIASTINUM AND COREY: Heart is normal in size. Normal upper mediastinal and hilar contour. BONES AND SOFT TISSUES: No acute abnormality. IMPRESSION: No acute abnormality. WSN: [id number] Ordering Physician: Perla Gutierrez Dictated By: Joseph Bowers MD Dictated Date/Time: 07/24/22 9:35 am Reviewed By: Joseph Bowers MD Signed By: Joseph Bowers MD Signed Date/Time: 07/24/22 9:35 am Transcribed By: JIMMY Transcribed Date/Time: 07/24/22 9:34 am Care Team Personnel Name: Felicita Melgar MD, I Address: [address] [place] [id number]
--- OUTSIDE RECORDS SUMMARY | 2023-02-13 07:58 | XMS_ITS | Continuity of Care Document ---
Author Name Unknown Organization [facility] Address [address] [place] [address]- Care Team Providers Care Surg Rn Name Role Phone Talia HANNON, Felicita Rivera Primary Care Physician [phone] Encounter [facility] Date(s): 08/18/22 - 09/17/[address] [address]- Allergies, Adverse Reactions, Alerts Substance Reaction Severity [...] Refills, Maintenance, 08/11/22 18:22:00 EDT, Solution, [id number], Partial fill upon patient request if the [...] 11 Refills, Maintenance, 09/06/22 17:29:00 EDT, Tablet, [facility], Partialfill upon patient request [...] 11/10/22 9:53:00 EST, 08/12/22 9:53:00 EDT, Tablet, [facility], Partial fill upon patient request if the prescription is for a schedule II opioid drug.,... Start Date: 08/12/22 Stop Date: 11/10/22 Status: Ordered gabapentin 100 mg oral capsule 100 mg, 1, capsule, By Mouth, 3 times a day, # 90 capsule, Refills 1, Tot. Refills 1, Maintenance, 08/11/22 16:31:00 EDT, Route to Pharmacy Electronically, [facility]/pharmacy #[id number], Partial fill upon patient request if [...] dx J45.901, J18.9 ROBERT 99 fax to [facility] [address], 08/12/22 8:52:00 EDT, Supply Start Date: 08/12/22 Status: Ordered oxyCODONE 5 mg oral tablet 5 mg, 1, tablet, By Mouth, Every 6 hours, PRN, # 24 tablet, Refills 0, Tot. Refills 0, Maintenance,pain in chest, 09/17/22 9:17:00 EDT, Route to Pharmacy Electronically, [facility]/pharmacy #[id number], Partial fill upon patient request if the prescription is for... Start Date: 09/17/22 Status: Ordered predniSONE 10 mg oral tablet 7.5 tablet = 75 mg, By Mouth, Daily, take 7.5 tablet (75mg) daily x 10 days. then we will begin slow taper. take with food., # 75 tablet, 0 Refills, Maintenance, 09/17/22 9:12:00 EDT, [id number], Partial fill upon patient request if the prescr... Start Date: 09/17/22 Stop Date: 09/27/22 Status: Ordered Ventolin HFA 108 mcg/inh inhalation aerosol with adapter 2 puffs, Inhalation, 4 times a day, PRN Wheezing/Shortness of Breath, # 1 each, 1 Refills, Maintenance, 09/06/22 22:51:00 EDT, Aerosol, [facility], Partial fill upon patient [...] Depression Confirmed [facility] Confirmed Active Uterine scar x1 Confirmed Active Social History Social History Type Response Tobacco Use: 4 or less cigar ettes(less than 1/4 pack)/day in last 30 days. Sex Patient Care team information Personnel Name: Felicita Melgar MD, I Address: Address: [address] [place] [address]-
--- OUTSIDE RECORDS SUMMARY | 2023-02-13 07:58 | XMS_ITS | Continuity of Care Document ---
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 Acquired immune deficiency syndrome (AIDS) with CD4 108 on 09/27/16(Discharge Diagnosis) - 09/12/22 Discharge Disposition: A-D/C AMA Attending Physician: Divine Bragg MD, Rommel Murphy Admitting Physician: Inna HANNON, Jackie Scales Referring Physician: Not on Staff, Referring MD [...] 11 Refills, Maintenance, 09/06/22 17:29:00 EDT, Tablet, [facility], Partialfill upon patient request [...] 11/09/22 18:20:00 EST, 08/11/22 18:20:00 EDT, Capsule, [facility]/pharmacy #[id number], Partial fill upon patient request if the prescription is for a schedule II... Start Date: 08/11/22 Stop Date: 11/09/22 Status: Ordered ethambutol 400 mg oral tablet 3 tablet = 1,200 mg, By Mouth, Daily, for 30 days, # 90 tablet, 2 Refills, Acute 11/10/22 9:53:00 EST, 08/12/22 9:53:00 EDT, Tablet, [facility], Partial fill upon patient request if the prescription is for a schedule II opioid drug.,... Start Date: 08/12/22 Stop Date: 11/10/22 Status: Ordered gabapentin 100 mg oral capsule 100 mg, 1, capsule, By Mouth, 3 times a day, # 90 capsule, Refills 1, Tot. Refills 1, Maintenance, 08/11/22 16:31:00 EDT, Route to Pharmacy Electronically, [facility]/pharmacy #[id number], Partial fill upon patient request if the prescription is for a schedule II... Start Date: 08/11/22 Stop Date: 10/10/22 Status: Ordered MiraLax oral powder for reconstitution = 17 Gm, By Mouth, Daily, PRN Constipation, for 30 days, dissolve in water before taking, # 527 Gm,2 Refills, Acute 11/09/22 18:20:00 EST, 08/11/22 18:20:00 EDT, REC Powder, [facility]/pharmacy #[id number], Partial fill upon patient request if the prescription is... Start Date: 08/11/22 Stop Date: 11/09/22 Status: Ordered Nebulizer/Compressor See Instructions, # 1 each, Maintenance, disp nebulizer w all tubing to use with nebulized albuterol treatments dx J45.901, J18.9 ROBERT 99 fax to [facility] [address], 08/12/22 8:52:00 EDT, Supply Start Date: 08/12/22 Status: Ordered Ventolin HFA 108 mcg/inh inhalation aerosol with adapter 2 puffs, Inhalation, 4 times a day, PRN Wheezing/Shortness of Breath, # 1 each, 1 Refills, Maintenance, 09/06/22 22:51:00 EDT, Aerosol, [facility], Partial fill upon patient [...] Depression Confirmed Active History of laparoscopic appendectomy, [facility], dr combs 01/21/2020 Confirmed Active Uterine scar x1 Confirmed Active Diagnosis Diagnosis Type Effective Dates Health Status Clinical Service Informant Acquired immune deficiency syndrome (AIDS) with CD4 108 on 09/27/16 Discharge Diagnosis 09/12/22 Results Orders for Microbiology Reports Name Date AFB Culture w/ AFB Smear, Respiratory Sputum Culture w/ Gram Smear 09/15/22 Blood Culture 09/12/22 Blood Culture #2 09/12/22 Microbiology Reports TEST:Sputum Culture STATUS:Unauthenticated BODY SITE: SOURCE:EXPECT COLLECTED DATE/TIME:09/15/22 10:35 AM Sputum Culture SPECIMEN DESCRIPTION : EXPECTORATED SPUTUM SPECIAL REQUESTS : NONE GRAM STAIN : 1+ POLYMORPHONUCLEAR LEUKOCYTES 1+ TISSUE CELLS 1+ GRAM POSITIVE COCCI CULTURE : NORMAL SO FAR REPORT STATUS : PRELIMINARY REPORT TEST:AFB Culture w/AFB Smear, Respiratory STATUS:Unauthenticated BODY SITE: SOURCE:EXPECT COLLECTED DATE/TIME:09/15/22 10:35 AM AFB Culture w/AFB Smear, Respiratory SPECIMEN DESCRIPTION : EXPECTORATED SPUTUM SPUTUM SPECIAL REQUESTS : NONE DIRECT EXAM : 1+ ACID FAST BACILLI SEEN ON DIRECT SMEAR,TEST PERFORMED AT [facility] CALLED AND VERIFIED BY READBACK FOR: POSITIVE ACID FAST SMEAR TO [id number] AT 1455, 09/16/22, BY TECH 169 CULTURE : SPECIMEN SENT TO [facility], [place], [place] REPORT STATUS : PRELIMINARY REPORT TEST:Blood Culture STATUS:Unauthenticated BODY SITE: SOURCE:Blood COLLECTED DATE/TIME:09/12/22 12:29 PM Blood Culture SPECIMEN DESCRIPTION : BLOOD R AC SPECIAL REQUESTS : NONE CULTURE : NO GROWTH 4 DAYS REPORT STATUS : PRELIMINARY REPORT TEST:Blood Culture, Second Order STATUS:Unauthenticated BODY SITE: SOURCE:Blood COLLECTED DATE/TIME:09/12/22 12:29 PM Blood Culture, Second Order SPECIMEN DESCRIPTION : BLOOD L AC SPECIAL REQUESTS : NONE CULTURE : NO GROWTH 4 DAYS REPORT STATUS : PRELIMINARY REPORT Radiology Reports * Exam Date Time Procedure Performing Provider Status 09/12/22 2:20 PM Chest 2 Views Frontal and Lat Yoli Canales; Auth (Verified) Notes: (Chest 2 Views Frontal and Lat) Reason For Exam: Shortness of Breath, Fever;Other: RESULT: Chest 2 Views Frontal and Lat Chest 2 Views Frontal and Lat Hx of Present Illness: CP fever x3wks, sts she is currently on antibiotics for PNAambulatory to triage desk with steady gait, appears to be in NADsee expect; Reason: Other:; Shortness of Breath, Fever; Clinical Question(s): Pneumonia; Order Comment: Not ready; Nurse will call when ready @ 1225 COMPARISON: Multiple prior chest radiographs, the most recent of which is dated 08/08/2022. CT chestangiogram dated 08/08/2022. FINDINGS: LINES AND TUBES: None. LUNGS AND PLEURA: Mild increased haziness in the right lung base, possibly reflecting atelectasis.. Normal pulmonary vascularity. No pleural effusion. No pneumothorax. HEART, MEDIASTINUM AND GENNY: Heart is normal in size. Again seen are enlarged genny, more prominent on the left, corresponding to the significant hilar adenopathy is visualized on the CT chest dated 09/11/2022. The denise appears mildly widened, likely secondary to the underlying lymphadenopathy. BONES AND SOFT TISSUES: No acute abnormality. IMPRESSION: 1. No focal consolidation. 2. Overall unchanged hilar and mediastinal adenopathy, corresponding to the findings visualized on the CT dated 09/11/2012. I have personally reviewed the images and I agree with this report. WSN: [id number] Ordering Physician: Ellen Nicole Dictated By: Rosalina Nichols MD Dictated Date/Time: 09/12/22 2:56 pm Reviewed By: Tremayne Roberts MD, V Signed By: Tremayne Roberts MD, V Signed Date/Time: 09/12/22 3:01 pm Transcribed By: JIMMY Transcribed Date/Time: 09/12/22 2:52 pm Vital Signs Most recent to oldest [Reference Range]: 1 2 3 Oxygen Saturation [94-100 %] 100 % (09/16/22 5:54 PM) 96 % (09/16/22 4:33 PM) 96 % (09/16/22 4:28 PM) Pulse Rate [55-90 bpm] 67 bpm (09/16/22 5:54 PM) 73 bpm (09/16/22 1:47 PM) 66 bpm (09/16/22 4:00 AM) Blood Pressure [90-138/55-84 mm Hg] 115/76mm Hg (09/16/22 5:54 PM) 105/64mm Hg (09/16/22 4:33 PM) 107/62mm Hg (09/16/22 4:28 PM) Respiratory Rate [16-30 br/min] 17 br/min (09/16/22 5:54 PM) 18 br/min (09/16/22 4:33 PM) 18 br/min (09/16/22 4:28 PM) Temperature [96.8-100.4 DegF] 97.7 DegF (09/16/22 5:54 PM) 97.5 DegF (09/16/22 4:08 PM) 98.5 DegF (09/16/22 1:47 PM) Liters per Minute 2 L/min (09/16/22 4:18 PM) 4 L/min (09/16/22 4:13 PM) 4 L/min (09/16/22 4:08 PM) Mode of Delivery (Oxygen) Room air (09/16/22 5:54 PM) Room air (09/16/22 4:33 PM) Room air (09/16/22 4:28 PM) Blood pressure sites Arm, left (09/16/22 5:54 PM) Arm, right (09/16/22 4:33 PM) Arm, right (09/16/22 4:28 PM) Temperature Route Oral (09/16/22 5:54 PM) Temporal (09/16/22 4:08 PM) Temporal (09/16/22 1:47 PM) Social History Social History Type Response Tobacco Use: 4 or less cigar ettes(less than 1/4 pack)/day in last 30 days. 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 CT chestangiogram dated 08/08/2022. FINDINGS: LINES AND TUBES: None. LUNGS AND PLEURA: Mild increased haziness in the right lung base, possibly reflecting atelectasis.. Normal pulmonary vascularity. No pleural effusion. No pneumothorax. HEART, MEDIASTINUM AND GENNY: Heart is normal in size. Again seen are enlarged genny, more prominent on the left, corresponding to the significant hilar adenopathy is visualized on the CT chest dated 09/11/2022. The denise appears mildly widened, likely secondary to the underlying lymphadenopathy. BONES AND SOFT TISSUES: No acute abnormality. IMPRESSION: 1. No focal consolidation. 2. Overall unchanged hilar and mediastinal adenopathy, corresponding to the findings visualized on the CT dated 09/11/2012. I have personally reviewed the images and I agree with this report. WSN: [id number] Ordering Physician: Ellen Nicole Dictated By: Rosalina Nichols MD Dictated Date/Time: 09/12/22 2:56 pm Reviewed By: Tremayne Roberts MD, V Signed By: Tremayne Roberts MD, V Signed Date/Time: 09/12/22 3:01 pm Transcribed By: JIMMY Transcribed Date/Time: 09/12/22 2:52 pm Patient Care team information Personnel Name: Felicita Melgar MD, I Address: Address: [address] [place] [id number]
--- OUTSIDE RECORDS SUMMARY | 2023-02-13 07:58 | XMS_ITS | Continuity of Care Document ---
Author Name Unknown Organization [facility] ter Address [address] [place] [address]- Care Team Providers Care Garment Parts Cutter Hand Name Role Phone Talia HANNON, Felicita Rivera Primary Care Physician [phone] Encounter [facility] [place] Date(s): 01/20/20 - 01/20/[address] [address] [place] Discharge Disposition: A-D/C Walkout Attending Physician: Not on Staff, Attending MD Admitting Physician: Not on Staff, Admitting MD Referring Physician: Not on Staff, Referring MD [...] 14:51:18 EST, Aerosol, Route to Pharmacy Electronically, [id number], [facility]/pharmacy #[id number] Start Date: 09/26/19 Stop Date: 09/20/20 Status: [...]
--- OUTSIDE RECORDS SUMMARY | 2023-02-13 07:58 | XMS_ITS | Continuity of Care Document ---
Author Name Unknown Organization [facility] Address [address] [place] [address]- Care Team Providers Care House Calls Nurse Practitioner Name Role Phone Felicita Melgar MD, I Primary Care Physician Encounter [facility] [place] Date(s): 07/23/21 - 09/02/[address] [address]- Attending Physician: Felicita Melgar MD, I Admitting [...] 14:51:18 EST, Aerosol, Route to Pharmacy Electronically, [id number], [facility]/pharmacy #[id number] Start Date: 09/26/19 Stop Date: 09/20/20 Status: [...] History of laparoscopic appe ndectomy, [facility] 01/21/2020(Confirmed) Active Uterine scar x1(Confirmed) Active Social History Social History Type Response Smoking Status Former smoker entered on: 10/27/16 Sex
--- OUTSIDE RECORDS SUMMARY | 2023-02-13 07:58 | XMS_ITS | Continuity of Care Document ---
Author Name Unknown Organization [facility] Address [address] [place] [address]- Care Team Providers Care Dielectric Testing Machine Operator Name Role Phone Talia HANNON, Felicita Rivera Primary Care Physician Encounter [facility] Date(s): 06/02/20 - 07/02/[address] [address]- [facility] Allergies, Adverse Reactions, Alerts Substance Reaction Severity Status Bactrim Dairy food intake Active Immunizations Given and Recorded Vaccine Date Status Refusal Reason tetanus/diphtheria/pertussis, acel(Tdap) 02/16/17 Given Medications albuterol CFC free 90 mcg/inh inhalation aerosol 2, puffs, Inhalation, 4 times a day, PRN, # 1 each, Refills 11, Tot. Refills 11, Maintenance, 09/26/19 14:51:18 EST, Aerosol, Route to Pharmacy Electronically, [id number], [id number] Start Date: 09/26/19 Stop Date: [...]
--- OUTSIDE RECORDS SUMMARY | 2023-02-13 07:59 | XMS_ITS | Continuity of Care Document ---
Author Name Unknown Organization [facility] Address [address] [place] [address]- Care Team Providers Care Oral Surgery Technician Name Role Phone Felicita Melgar MD, I Primary Care Physician [place] [facility] [place] 09/28/20 - 10/28/[address] [address]- Allergies, Adverse Reactions, Alerts Substance Reaction Severity Status doxycycline itchy rash Active Bactrim Dairy food intake Active Immunizations Given and Recorded Vaccine Date Status Refusal Reason tetanus/diphtheria/pertussis, acel(Tdap) 02/16/17 Given Medications albuterol CFC free 90 mcg/inh inhalation aerosol 2, puffs, Inhalation, 4 times a day, PRN, # 1 each, Refills 11, Tot. Refills 11, Maintenance, 09/26/19 14:51:18 EST, Aerosol, Route to Pharmacy Electronically, [id number], [id number] Start Date: 09/26/19 Stop Date: [...]
--- OUTSIDE RECORDS SUMMARY | 2023-02-13 07:59 | XMS_ITS | Continuity of Care Document ---
Author Name Unknown Organization [facility] Address [address] [place] [address]- Care Team Providers Care Cutting Tool Sharpener Name Role Phone Talia HANNON, Felicita Rivera Primary Care Physician Encounter [facility] ACCT R [id number] Date(s): 11/08/22 - 12/08/[address] [address]- Attending Physician: Isabela Rivera Admitting Physician: Isabela [...] Refills, Maintenance, 08/11/22 18:22:00 EDT, Solution, [id number], Partial fill upon patient request if the prescription is for a sc... Start Date: 08/11/22 Status: Ordered atovaquone 750 mg/5 mL oral suspension 10 mL = 1,500 mg, By Mouth, Daily, for 30 days, with meals, # 300 mL, 11 Refills, Acute 11/27/23 14:58:00 EST, 12/02/22 14:58:00 EST, Suspension, [facility], Partial fill upon patient request if the prescription is for a schedule II o... Start Date: 12/02/22 Stop Date: 11/27/23 Status: Ordered azithromycin 500 mg oral tablet 1 tablet = 500 mg, By Mouth, Daily, for 30 days, # 30 tablet, 5 Refills, Acute 05/31/23 14:52:00 EDT, 12/02/22 14:52:00 EST, Tablet, [facility], Partial fill upon patient request if the prescription is for a schedule II opioid drug.,... Start Date: 12/02/22 Stop Date: 05/31/23 Status: Ordered Biktarvy oral tablet 1 tablet, By Mouth, Daily, # 30 tablet, 11 Refills, Maintenance, 12/02/22 14:52:00 EST, Tablet, [facility], Partial fill upon patient request if the prescription is for a schedule IIopioid drug., 1 tablet By Mouth Daily,x30 days, 165... Start Date: 12/02/22 Stop Date: 11/27/23 Status: Ordered ethambutol 400 mg oral tablet 3 tablet = 1,200 mg, By Mouth, Daily, for 30 days, # 90 tablet, 5 Refills, Acute 05/31/23 14:52:00 EDT, 12/02/22 14:52:00 EST, Tablet, [facility], Partial fill upon patient request if the prescription is for a schedule II opioid drug.... 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 Sex Hospital Consult note * Event Display: Inpatient Consult Note, Non- Authored Date: * Event Display: Inpatient Consult Note, Non- Authored Date: Note * Event Display: EKG Non Authored Date: Patient Care team information Care Team Personnel Name: Renzo Hernandez RN Position: S RN Supv Member Role: Primary Care Nurse Name: Felicita Melgar MD, I Position: S Primary Care Physician Member Role: PCP Address: Address: [address] [place] [address]- Name: Candie Bustamante RN Position: S RN Member Role: Primary Care Nurse Name: Rocio Brown RN Position: S RN Member Role: Primary Care Nurse Name: Yulissa Gonzales RN Position: S RN Member Role: Primary Care Nurse Address: Address: [address] [place], [place] [address], [place] [address]- Name: Heather Youngblood RN Position: [facility] SN RN Member Role: Primary Care Nurse Care Team Related Persons Name: CECIL COLLIER Address: [place] [address] Name: AMANDA RESTREPO Address: home [address] [place] [address]
--- OUTSIDE RECORDS SUMMARY | 2023-02-13 07:59 | XMS_ITS | Continuity of Care Document ---
Author Name Unknown Organization [facility] Address [address] [place] [address]- Care Team Providers Care Turner Splitter Machine Operator Name Role Phone Talia HANNON, Felicita Rivera Primary Care Physician [phone] Encounter [facility] ACCT R [id number] Date(s): 09/24/20 - 09/25/[address] [address]- Encounter Diagnosis AIDS(Final) - 09/24/20 Discharge Disposition: A-D/C AMA Attending Physician: Timbo Bates MD Admitting Physician: Renzo Carey MD Referring Physician: Not on Staff, Referring [...] 14:51:18 EST, Aerosol, Route to Pharmacy Electronically, [id number], [facility][id number] Start Date: 09/26/19 Stop Date: 09/20/20 [...] Depression(Confirmed) [facility]) Active Uterine scar x1(Confirmed) Active Results Orders for Microbiology Reports Name Date Blood Culture 09/24/20 Blood Culture #2 09/24/20 Microbiology Reports TEST:Blood Culture, Second Order STATUS:Unauthenticated BODY SITE: SOURCE:Blood COLLECTED DATE/TIME:09/24/20 2:20 AM Blood Culture, Second Order SPECIMEN DESCRIPTION : BLOOD R HAND SPECIAL REQUESTS : NONE CULTURE : NO GROWTH AFTER 24 HOURS REPORT STATUS : PRELIMINARY REPORT TEST:Blood Culture STATUS:Unauthenticated BODY SITE: SOURCE:Blood COLLECTED DATE/TIME:09/24/20 2:01 AM Blood Culture SPECIMEN DESCRIPTION : BLOOD L AC SPECIAL REQUESTS : NONE CULTURE : NO GROWTH AFTER 24 HOURS REPORT STATUS : PRELIMINARY REPORT Radiology Reports * Exam Date Time Procedure Performing Provider Status 09/24/20 1:59 AM Chest Portable Maya Loza; Auth (V erified) Notes: (Chest Portable) Reason For Exam: fever;Other: RESULT: Chest Portable Chest Portable Hx of Present Illness: SOB , body weakness, abdominal pain , fever , Reason: Fever COMPARISON: August 20, 2018 FINDINGS: LINES AND TUBES: None. LUNGS AND PLEURA: Diffuse patchy airspace opacities throughout the right upper lung and right middle lobe. There is question of a developing cavitary lesion in the right upper lobe. There is some volume loss on the right as well indicating a component of atelectasis. The left lung is clear. No pleural effusion. No pneumothorax. HEART, MEDIASTINUM AND COREY: Heart is normal in size. Normal mediastinal and hilar contour. BONES AND SOFT TISSUES: No acute abnormality. IMPRESSION: Multifocal right-sided pneumonia. Question of developing cavitary lesion in the right upper lobe for which follow-up is suggested.. WSN: [id number] Ordering Physician: Abelardo Gillespie Dictated By: Claudio Baker MD Dictated Date/Time: 09/24/20 7:53 am Reviewed By: Claudio Baker MD Signed By: Claudio Baker MD Signed Date/Time: 09/24/20 7:53 am Transcribed By: JIMMY Transcribed Date/Time: 09/24/20 7:51 am Vital Signs Most recent to oldest [Reference Range]: 1 2 3 Height 165 cm (09/25/20 5:38 AM) 165 cm (09/25/20 2:14 AM) 165 cm (09/25/20 12:26 AM) Oxygen Saturation [94-100 %] 95 % (09/25/20 12:00 PM) 98 % (09/25/20 7:45 AM) 98 % (09/25/20 5:38 AM) Pulse Rate [55-90 bpm] 81 bpm (09/25/20 12:00 PM) 88 bpm (09/25/20 7:45 AM) 77 bpm (09/25/20 5:38 AM) Blood Pressure [90-138/55-84 mm Hg] 114/58mm Hg (09/25/20 12:00 PM) 103/63mm Hg (09/25/20 7:45 AM) 117/76mm Hg (09/25/20 5:38 AM) Respiratory Rate [16-30 br/min] 20 br/min (09/25/20 12:00 PM) 22 br/min (09/25/20 7:45 AM) 20 br/min (09/25/20 5:38 AM) Temperature [96.8-100.4 DegF] 98.2 DegF (09/25/20 5:38 AM) 98.2 DegF (09/25/20 4:03 AM) 97.9 DegF (09/25/20 2:14 AM) Mode of Delivery (Oxygen) Room air (09/25/20 12:00 PM) Room air (09/25/20 7:45 AM) Room air (09/25/20 5:38 AM) Blood pressure sites Arm, left (09/25/20 12:00 PM) Arm, right (09/25/20 7:45 AM) Arm, right (09/25/20 5:38 AM) Temperature Route Oral (09/25/20 5:38 AM) Oral (09/25/20 4:03 AM) Oral (09/25/20 2:14 AM) Dry Weight 68 kg (09/25/20 5:38 AM) 68 kg (09/25/20 2:14 AM) 68 kg (09/25/20 12:26 AM) Social History Social History Type Response Smoking Status Former smoker entered on: 10/27/16 Sex
--- OUTSIDE RECORDS SUMMARY | 2023-02-13 07:59 | XMS_ITS | Continuity of Care Document ---
Author Name Unknown Organization [facility] Address [address] [place] [address]- Care Team Providers Care Program Scheduler Name Role Phone Felicita Melgar MD, I Primary Care Physician [place] [facility] [place] Date(s): 11/02/22 - 12/08/[address] [address]- Attending Physician: Carter Hawley OD Admitting Physician: Carter Hawley OD Referring Physician: Felicita Melgar MD, I Allergies, [...] Refills, Maintenance, 08/11/22 18:22:00 EDT, Solution, [id number], Partial fill upon patient request if the prescription is for a sc... Start Date: 08/11/22 Status: Ordered atovaquone 750 mg/5 mL oral suspension 10 mL = 1,500 mg, By Mouth, Daily, for 30 days, with meals, # 300 mL, 11 Refills, Acute 11/27/23 14:58:00 EST, 12/02/22 14:58:00 EST, Suspension, [facility], Partial fill upon patient request if the prescription is for a schedule II o... Start Date: 12/02/22 Stop Date: 11/27/23 Status: Ordered azithromycin 500 mg oral tablet 1 tablet = 500 mg, By Mouth, Daily, for 30 days, # 30 tablet, 5 Refills, Acute 05/31/23 14:52:00 EDT, 12/02/22 14:52:00 EST, Tablet, [facility], Partial fill upon patient request if the prescription is for a schedule II opioid drug.,... Start Date: 12/02/22 Stop Date: 05/31/23 Status: Ordered Biktarvy oral tablet 1 tablet, By Mouth, Daily, # 30 tablet, 11 Refills, Maintenance, 12/02/22 14:52:00 EST, Tablet, [facility], Partial fill upon patient request if the prescription is for a schedule IIopioid drug., 1 tablet By Mouth Daily,x30 days, 165... Start Date: 12/02/22 Stop Date: 11/27/23 Status: Ordered ethambutol 400 mg oral tablet 3 tablet = 1,200 mg, By Mouth, Daily, for 30 days, # 90 tablet, 5 Refills, Acute 05/31/23 14:52:00 EDT, 12/02/22 14:52:00 EST, Tablet, [facility], Partial fill upon patient request if the prescription is for a schedule II opioid drug.... 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 Sex Patient Care team information Care Team Personnel Name: Renzo Hernandez RN Position: [facility] RN Supv Member Role: Primary Care Nurse Name: Felicita Melgar MD, I Position: [facility] Primary Care Physician Member Role: PCP Address: Address: [address] [place] [address]- Name: Candie Bustamante RN Position: S RN Member Role: Primary Care Nurse Name: Rocio Brown RN Position: S RN Member Role: Primary Care Nurse Name: Yulissa Gonzales RN Position: S RN Member Role: Primary Care Nurse Address: Address: [address] [place] [address] Name: Heather Youngblood RN Position: [facility] SN RN Member Role: Primary Care Nurse Care Team Related Persons Name: CECIL COLLIER Address: [place] [address] Name: AMANDA RESTREPO Address: home [address] [facility] [place] [id number]
--- OUTSIDE RECORDS SUMMARY | 2023-02-13 07:59 | XMS_ITS | Continuity of Care Document ---
Author Name Unknown Organization [facility] Address [address] [place] [address]- Care Team Providers Care Business Department Chair Name Role Phone Felicita Melgar MD, I Primary Care Physician [phone] Encounter [facility] Date(s): 09/06/22 - 10/06/[address] [address]- Allergies, Adverse Reactions, Alerts Substance Reaction Severity [...] Refills, Maintenance, 08/11/22 18:22:00 EDT, Solution, [id number], Partial fill upon patient request if the [...] 11 Refills, Maintenance, 09/06/22 17:29:00 EDT, Tablet, [facility], Partialfill upon patient request [...] 11/10/22 9:53:00 EST, 08/12/22 9:53:00 EDT, Tablet, [facility], Partial fill upon patient request if the prescription is for a schedule II opioid drug.,... Start Date: 08/12/22 Stop Date: 11/10/22 Status: Ordered gabapentin 100 mg oral capsule 100 mg, 1, capsule, By Mouth, 3 times a day, # 90 capsule, Refills 1, Tot. Refills 1, Maintenance, 08/11/22 16:31:00 EDT, Route to Pharmacy Electronically, [facility] #[id number], Partial fill upon patient request if the prescription is for a schedule II... Start Date: 08/11/22 Stop Date: 10/10/22 Status: Ordered MiraLax oral powder for reconstitution = 17 Gm, By Mouth, Daily, PRN Constipation, for 30 days, dissolve in water before taking, # 527 Gm,2 Refills, Acute 11/09/22 18:20:00 EST, 08/11/22 18:20:00 EDT, REC Powder, [facility]/pharmacy #[id number], Partial fill upon patient request if the prescription is... Start Date: 08/11/22 Stop Date: 11/09/22 Status: Ordered Nebulizer/Compressor See Instructions, # 1 each, Maintenance, disp nebulizer w all tubing to use with nebulized albuterol treatments dx J45.901, J18.9 ROBERT 99 fax to [facility] [address], 08/12/22 8:52:00 EDT, Supply Start Date: 08/12/22 Status: Ordered oxyCODONE 5 mg oral tablet 5 mg, 1, tablet, By Mouth, Every 6 hours, PRN, mass pat checked., # 30 tablet, Refills 0, Tot. Refills 0, Maintenance, pain in chest, 10/04/22 11:58:00 EST, Route to Pharmacy Electronically, [facility], Partial fill upon patient reque... Start Date: 10/04/22 Status: Ordered predniSONE 10 mg oral tablet 4 tablet = 40 mg, By Mouth, Daily, # 56 tablet, 1 Refills, Maintenance, 10/04/22 11:57:00 EST, [facility], Partial fill upon patient request if the prescription is for a schedule II opioid drug., 165, cm, 10/04/22 11:55:00 EST, Height... Start Date: 10/04/22 Stop Date: 11/01/22 Status: Ordered Ventolin HFA 108 mcg/inh inhalation aerosol with adapter 2 puffs, Inhalation, 4 times a day, PRN Wheezing/Shortness of Breath, # 1 each, 1 Refills, Maintenance, 09/06/22 22:51:00 EDT, Aerosol, [facility], Partial fill upon patient [...] Depression Confirmed Active History of laparoscopic appendectomy, [facility], dr combs 01/21/2020 Confirmed Active Uterine scar x1 Confirmed Active Social History Social History Type Response Tobacco Use: 4 or less cigar ettes(less than 1/4 pack)/day in last 30 days. Sex Patient Care team information Care Team Personnel Name: Renzo Hernandez RN Position: [facility] RN Supv Member Role: Primary Care Nurse Name: Felicita Melgar MD, I Position: [facility] Primary Care Physician Member Role: PCP Address: Address: [address] [place] [address]- Name: Candie Bustamante RN Position: S RN Member Role: Primary Care Nurse Name: Rocio Brown RN Position: S RN Member Role: Primary Care Nurse Name: Yulissa Gonzales RN Position: S RN Member Role: Primary Care Nurse Address: Address: [address] [place] [address]- Name: Heather Youngblood RN Position: [facility] RN Member Role: Primary Care Nurse Care Team Related Persons Name: KIRIT COLLIERTOR Address: [place] [address] Name: AMANDA RESTREPO Address: home [address] [place] [address]
--- OUTSIDE RECORDS SUMMARY | 2023-02-13 07:59 | XMS_ITS | Continuity of Care Document ---
Author Name Unknown Organization [facility] Address [address] [place] [address]- Care Team Providers Care Master Of Ceremonies Name Role Phone Felicita Melgar MD, I Primary Care Physician [phone] Encounter [facility] Date(s): 10/07/22 - 11/06/[address] [address]- Allergies, Adverse Reactions, Alerts Substance Reaction Severity [...] 11 Refills, Maintenance, 09/06/22 17:29:00 EDT, Tablet, [facility], Partialfill upon patient request if the prescription is... Start Date: 09/06/22 Status: Ordered dextromethorphan-guaifenesin 10 mg-100 mg/10 mL oral liquid 5 mL, By Mouth, Every 4 hours, PRN Cough, for 30 days, # 120 mL, 2 Refills, Acute 11/09/22 18:20:00EST, 08/11/22 18:20:00 EDT, Liquid, [facility]/pharmacy #[id number], Partial fill upon patient request if the prescription is for a schedule II opioid drug., 5 mL B... Start Date: 08/11/22 Stop Date: 11/09/22 Status: Ordered docusate-senna 50 mg-8.6 mg oral capsule 2 capsule, By Mouth, Daily at bedtime, PRN Constipation, for 30 days, # 60 capsule, 2 Refills, Acute 11/09/22 18:20:00 EST, 08/11/22 18:20:00 EDT, Capsule, [facility]/pharmacy #[id number], Partial fill upon patient request if the prescription is for a schedule II... Start Date: 08/11/22 Stop Date: 11/09/22 Status: Ordered ethambutol 400 mg oral tablet 3 tablet = 1,200 mg, By Mouth, Daily, for 30 days, # 90 tablet, 3 Refills, Acute 02/28/23 15:48:00 EDT, 10/31/22 15:48:00 EST, Tablet, [facility], Partial fill upon patient request if the prescription is for a schedule II opioid drug.... Start Date: 10/31/22 Stop Date: 02/28/23 Status: Ordered gabapentin 100 mg oral capsule 100 mg, 1, capsule, By Mouth, 3 times a day, # 90 capsule, Refills 1, Tot. Refills 1, Maintenance, 08/11/22 16:31:00 EDT, [id number] Partial fill upon patient request if the prescription is for a schedule II... Start Date: 08/11/22 Stop Date: 10/10/22 Status: Ordered MiraLax oral powder for reconstitution = 17 Gm, By Mouth, Daily, PRN Constipation, for 30 days, dissolve in water before taking, # 527 Gm,2 Refills, Acute 11/09/22 18:20:00 EST, 08/11/22 18:20:00 EDT, REC Powder, [facility]/pharmacy #[id number], Partial fill upon patient request if the prescription is... Start Date: 08/11/22 Stop Date: 11/09/22 Status: Ordered Nebulizer/Compressor See Instructions, # 1 each, Maintenance, disp nebulizer w all tubing to use with nebulized albuterol treatments dx J45.901, J18.9 ROBERT 99 fax to [facility] [address], 08/12/22 8:52:00 EDT, Supply Start Date: 08/12/22 Status: Ordered oxyCODONE 5 mg oral tablet 5 mg, 1, tablet, By Mouth, Every 6 hours, PRN, mass pat checked., # 30 tablet, Refills 0, Tot. Refills 0, Maintenance, pain in chest, 10/17/22 15:32:00 EST, Route to Pharmacy Electronically, [facility], Partial fill upon patient reque... Start Date: 10/17/22 Status: Ordered predniSONE 10 mg oral tablet 4 tablet = 40 mg, By Mouth, Daily, # 56 tablet, 1 Refills, Maintenance, 10/04/22 11:57:00 EST, [facility], Partial fill upon patient [...] 0 Refills, Maintenance, 10/17/22 15:29:00 EST, Tablet, [facility], Partial fill upon pa... [...] 3 Refills, Maintenance, 10/31/22 15:48:00 EST, Aerosol, [facility], Partial fill upon patient [...] Depression Confirmed Active History of laparoscopic appendectomy, [facility], dr combs 01/21/2020 Confirmed Active Uterine scar [...] Care Physician Member Role: PCP Address: Address: [address] [place] [id number] Name: Candie Bustamante RN Position: S RN Member Role: Primary Care Nurse Name: Rocio Brown RN Position: S RN Member Role: Primary Care Nurse Name: Yulissa Gonzales RN Position: S RN Member Role: Primary Care Nurse Address: Address: [address] [place] [address] [place] [address]- Name: Heather Youngblood RN Position: [facility] SN RN Member Role: Primary Care Nurse Care Team Related Persons Name: CECIL COLLIER Address: [place] [address] Name: AMANDA RESTREPO Address: home [address] [place] [address]
--- OUTSIDE RECORDS SUMMARY | 2023-02-13 07:59 | XMS_ITS | Continuity of Care Document ---
Author Name Unknown Organization [facility] ter Address [address] [place] [id number]- Care Team Providers Care Circuit Recorder Name Role Phone Felicita Melgar MD, I Primary Care Physician [phone] Encounter [facility] [place] Date(s): 08/03/22 - 08/03/[address] [address]- Discharge Disposition: A-D/C Home Attending Physician: Marie Vaughn MD Admitting Physician: Marie Vaughn MD Referring Physician: Marie Vaughn MD Allergies, Adverse Reactions, Alerts Substance Reaction Severity Status doxycycline itchy rash Active dapsone 09/2019 developed rash on dapsone/trimeth oprim Active Bactrim Dairy food intake Active Immunizations Given and Recorded Vaccine Date Status Refusal Reason tetanus/diphtheria/pertussis, acel(Tdap) 02/16/17 Given tetanus/diphtheria/pertussis, acel(Tdap) 12/24/14 Recorded pneumococcal 13-valent vaccine 12/24/14 Recorded influenza virus vaccine, inactivated 12/24/14 Berto rded Medications Biktarvy oral tablet 1 tablet, By Mouth, Daily, # 30 tablet, 11 Refills, Maintenance, 06/29/22 18:16:00 EDT, Tablet, [facility], 1 tablet By Mouth Daily,x30 days, 165, cm, 05/16/22 22:59:00 EDT, Height, 70, kg, 05/16/22 22:59:00 EDT, Dry Weight Start Date: 06/29/22 Stop Date: 06/24/23 Status: Ordered Problem List Condition Effective Dates Status Health Status Inform ant Acquired immune deficiency s yndrome (AIDS) with CD4 108 on 09/27/16(Confirmed) Active Anal fissure(Confirmed) Active Axillary hidradenitis suppur ativa, chronic and severe. not in groin area.(Confirmed) Active Marijuana use(Confirmed) Active Depression(Confirmed) Active History of laparoscopic appe ndectomy, [place] dr garret garcia 01/21/2020(Confirmed) Active Uterine scar x1(Confirmed) Active Vital Signs Most recent to oldest [Reference Range]: 1 2 3 Height 165.1 cm (08/03/22 12:35 PM) Weight 75.8 kg (08/03/22 12:35 PM) Oxygen Saturation [94-100 %] 99 % (08/03/22 3:36 PM) 98 % (08/03/22 3:31 PM) 98 % (08/03/22 3:26 PM) Pulse Rate [55-90 bpm] 93 bpm *H* (08/03/22 12:35 PM) Body Mass Index [18.5-24.99] 27.81 *H* (08/03/22 12:35 PM) Blood Pressure [90-138/55-84 mm Hg] 112/61mm Hg (08/03/22 3:36 PM) 113/70mm Hg (08/03/22 3:31 PM) 111/70mm Hg (08/03/22 3:26 PM) Respiratory Rate [16-30 br/min] 18 br/min (08/03/22 3:36 PM) 18 br/min (08/03/22 3:31 PM) 18 br/min (08/03/22 3:26 PM) Temperature [96.8-100.4 DegF] 98.5 DegF (08/03/22 3:22 PM) 97.7 DegF (08/03/22 12:35 PM) Mode of Delivery (Oxygen) Room air (08/03/22 3:36 PM) Room air (08/03/22 3:31 PM) Room air (08/03/22 3:26 PM) Blood pressure sites Arm, left (08/03/22 3:36 PM) Arm, left (08/03/22 3:31 PM) Arm, left (08/03/22 3:26 PM) Temperature Route Temporal (08/03/22 12:35 PM) Social History Social History Type Response Smoking Status Former smoker entered on: 10/27/16 Sex Care Team Personnel Name: Felicita Melgar MD, I Address: [address] [place] [address], [place] [address]-
--- OUTSIDE RECORDS SUMMARY | 2023-02-13 07:59 | XMS_ITS | Continuity of Care Document ---
Author Name Unknown Organization [facility] Address [address] [place] [address]- Care Team Providers Care Cloth Napping Supervisor Name Role Phone Felicita Melgar MD, I Primary Care Physician Encounter [facility] Date(s): 08/03/22 - 09/02/[address] [address]- Allergies, Adverse Reactions, Alerts Substance Reaction Severity [...] 12/09/22 12:42:00 EST, 10/10/22 12:42:00 EST, Tablet, [facility]/pharmacy #[id number], Partial fill upon patient request if the prescription is for a schedule II opioid drug., 160, cm, 08/11/22... Start Date: 10/10/22 Stop Date: 12/09/22 Status: Ordered dextromethorphan-guaifenesin 10 mg-100 mg/10 mL oral liquid 5 mL, By Mouth, Every 4 hours, PRN Cough, for 30 days, # 120 mL, 2 Refills, Acute 11/09/22 18:20:00EST, 08/11/22 18:20:00 EDT, Liquid, [facility]/pharmacy #[id number], Partial fill upon patient request if the prescription is for a schedule II opioid drug., 5 mL B... Start Date: 08/11/22 Stop Date: 11/09/22 Status: Ordered docusate-senna 50 mg-8.6 mg oral capsule 2 capsule, By Mouth, Daily at bedtime, PRN Constipation, for 30 days, # 60 capsule, 2 Refills, Acute 11/09/22 18:20:00 EST, 08/11/22 18:20:00 EDT, Capsule, [facility]/pharmacy #[id number], Partial fill upon patient request if the prescription is for a schedule II... Start Date: 08/11/22 Stop Date: 11/09/22 Status: Ordered dolutegravir 50 mg oral tablet 1 tablet = 50 mg, By Mouth, Daily, # 30 tablet, 2 Refills, Maintenance, 08/12/22 9:53:00 EDT, Tablet, [facility], Partial fill upon patient request if the prescription is for a schedule II opioid drug., 160, cm, 08/11/22 7:42:00 EDT,... Start Date: 08/12/22 Stop Date: 11/10/22 Status: Ordered ethambutol 400 mg oral tablet 3 tablet = 1,200 mg, By Mouth, Daily, for 30 days, # 90 tablet, 2 Refills, Acute 11/10/22 9:53:00 EST, 08/12/22 9:53:00 EDT, Tablet, [facility], Partial fill upon patient request if the prescription is for a schedule II opioid drug.,... Start Date: 08/12/22 Stop Date: 11/10/22 Status: Ordered gabapentin 100 mg oral capsule 100 mg, 1, capsule, By Mouth, 3 times a day, # 90 capsule, Refills 1, Tot. Refills 1, Maintenance, 08/11/22 16:31:00 EDT, Route to Pharmacy Electronically, [facility]/pharmacy #[id number], Partial fill upon patient request if the prescription is for a schedule II... Start Date: 08/11/22 Stop Date: 10/10/22 Status: Ordered MiraLax oral powder for reconstitution = 17 Gm, By Mouth, Daily, PRN Constipation, for 30 days, dissolve in water before taking, # 527 Gm,2 Refills, Acute 11/09/22 18:20:00 EST, 08/11/22 18:20:00 EDT, REC Powder, [facility]/pharmacy #[id number], Partial fill upon patient request if the prescription is... Start Date: 08/11/22 Stop Date: 11/09/22 Status: Ordered Nebulizer/Compressor See Instructions, # 1 each, Maintenance, disp nebulizer w all tubing to use with nebulized albuterol treatments dx J45.901, J18.9 ROBERT 99 fax to [employer] [address], 08/12/22 8:52:00 EDT, Supply Start Date: 08/12/22 Status: Ordered rifabutin 150 mg oral capsule 2 capsule = 300 mg, By Mouth, Daily, for 30 days, # 60 capsule, 2 Refills, Acute 11/10/22 9:53:00 EST, 08/12/22 9:53:00 EDT, Capsule, [facility], Partial fill upon patient request ifthe prescription is for a schedule II opioid drug.,... Start Date: 08/12/22 Stop Date: 11/10/22 Status: Ordered Truvada 200 mg-300 mg oral tablet 1 tablet, By Mouth, Daily, # 90 tablet, 0 Refills, Maintenance, 08/11/22 16:35:00 EDT, Tablet, [facility]/pharmacy #[id number], Partial fill upon [...] 08/11/22 18:20:00 EDT, Route to Pharmacy Electronically, [facility]/pharmacy #[id number], Partial fill upon [...] Depression Confirmed Active History of laparoscopic appendectomy, [facility], dr combs 01/21/2020 Confirmed Active Uterine scar x1 Confirmed Active Social History Social History Type Response Tobacco Use: 4 or less cigar ettes(less than 1/4 pack)/day in last 30 days. Sex Patient Care team information Personnel Name: Felicita Melgar MD, I Address: Address: [address] [place] [id number]
--- OUTSIDE RECORDS SUMMARY | 2023-02-13 07:59 | XMS_ITS | Continuity of Care Document ---
Author Name Unknown Organization [facility] Address [address] [place] [address]- Care Team Providers Care Group Chief Operator Name Role Phone Felicita Melgar MD, I Primary Care Physician [place] [facility] [place] - 08/18/[address] [address]- Attending Physician: Felicita Melgar MD, I Admitting [...] Refills, Maintenance, 08/11/22 18:22:00 EDT, Solution, [id number], Partial fill upon patient request if the prescription is for a sc... Start Date: 08/11/22 Status: Ordered atovaquone 750 mg/5 mL oral suspension 10 mL = 1,500 mg, By Mouth, Daily, for 30 days, # 300 mL, 1 Refills, Acute 10/10/22 16:31:00 EST, 08/11/22 16:31:00 EDT, Suspension, [facility]/pharmacy #[id number], Partial fill upon patient request if the prescription is for a schedule II opioid drug., 160, cm,... Start Date: 08/11/22 Stop Date: 10/10/22 Status: Ordered azithromycin 500 mg oral tablet = 500 mg, By Mouth, Daily, for 30 days, # 30 tablet, 1 Refills, Acute 12/09/22 12:42:00 EST, 10/10/22 12:42:00 EST, Tablet, [facility]/pharmacy #[id number], Partial fill upon patient request if the prescription is for a schedule II opioid drug., 160, cm, 08/11/22... Start Date: 10/10/22 Stop Date: 12/09/22 Status: Ordered dextromethorphan-guaifenesin 10 mg-100 mg/10 mL oral liquid 5 mL, By Mouth, Every 4 hours, PRN Cough, for 30 days, # 120 mL, 2 Refills, Acute 11/09/22 18:20:00EST, 08/11/22 18:20:00 EDT, Liquid, [facility]/pharmacy #[id number], Partial fill upon patient request if the prescription is for a schedule II opioid drug., 5 mL B... Start Date: 08/11/22 Stop Date: 11/09/22 Status: Ordered docusate-senna 50 mg-8.6 mg oral capsule 2 capsule, By Mouth, Daily at bedtime, PRN Constipation, for 30 days, # 60 capsule, 2 Refills, Acute 11/09/22 18:20:00 EST, 08/11/22 18:20:00 EDT, Capsule, [facility]/pharmacy #[id number], Partial fill upon patient request if the prescription is for a schedule II... Start Date: 08/11/22 Stop Date: 11/09/22 Status: Ordered dolutegravir 50 mg oral tablet 1 tablet = 50 mg, By Mouth, Daily, # 30 tablet, 2 Refills, Maintenance, 08/12/22 9:53:00 EDT, Tablet, [facility], Partial fill upon patient request if the prescription is for a schedule II opioid drug., 160, cm, 08/11/22 7:42:00 EDT,... Start Date: 08/12/22 Stop Date: 11/10/22 Status: Ordered ethambutol 400 mg oral tablet 3 tablet = 1,200 mg, By Mouth, Daily, for 30 days, # 90 tablet, 2 Refills, Acute 11/10/22 9:53:00 EST, 08/12/22 9:53:00 EDT, Tablet, [facility], Partial fill upon patient request if the prescription is for a schedule II opioid drug.,... Start Date: 08/12/22 Stop Date: 11/10/22 Status: Ordered gabapentin 100 mg oral capsule 100 mg, 1, capsule, By Mouth, 3 times a day, # 90 capsule, Refills 1, Tot. Refills 1, Maintenance, 08/11/22 16:31:00 EDT, Route to Pharmacy Electronically, [facility]/pharmacy #[id number], Partial fill upon patient request if the prescription is for a schedule II... Start Date: 08/11/22 Stop Date: 10/10/22 Status: Ordered isoniazid 100 mg oral tablet 3 tablet = 300 mg, By Mouth, Daily, for 7 days, temp script until 300mg tabs available, # 21 tablet, 0 Refills, Acute 08/19/22 9:51:00 EDT, 08/12/22 9:51:00 EDT, Tablet, [facility], Partial fill upon patient request if the prescriptio... Start Date: 08/12/22 Stop Date: 08/19/22 Status: Ordered isoniazid 300 mg oral tablet 1 tablet = 300 mg, By Mouth, Daily, for 30 days, (script to use once pharmacy has 300mg tabs available), # 30 tablet, 2 Refills, Acute 11/10/22 9:52:00 EST, 08/12/22 9:52:00 EDT, Tablet, [facility], Partial fill upon patient request i... Start Date: 08/12/22 Stop Date: 11/10/22 Status: Ordered MiraLax oral powder for reconstitution = 17 Gm, By Mouth, Daily, PRN Constipation, for 30 days, dissolve in water before taking, # 527 Gm,2 Refills, Acute 11/09/22 18:20:00 EST, 08/11/22 18:20:00 EDT, REC Powder, [facility]/pharmacy #[id number], Partial fill upon patient request if the prescription is... Start Date: 08/11/22 Stop Date: 11/09/22 Status: Ordered Nebulizer/Compressor See Instructions, # 1 each, Maintenance, disp nebulizer w all tubing to use with nebulized albuterol treatments dx J45.901, J18.9 ROBERT 99 fax to [employer] [address], 08/12/22 8:52:00 EDT, Supply Start Date: 08/12/22 Status: Ordered oxyCODONE 5 mg oral capsule 1 capsule = 5 mg, By Mouth, Every 6 hours, PRN for pain, for 15 days, # 30 capsule, 0 Refills, Acute 08/26/22 16:31:00 EDT, 08/11/22 16:31:00 EDT, Capsule, [id number], Partial fill upon patient request if the prescription is for a schedule II... Start Date: 08/11/22 Stop Date: 08/26/22 Status: Ordered rifabutin 150 mg oral capsule 2 capsule = 300 mg, By Mouth, Daily, for 30 days, # 60 capsule, 2 Refills, Acute 11/10/22 9:53:00 EST, 08/12/22 9:53:00 EDT, Capsule, [facility], Partial fill upon patient request ifthe prescription is for a schedule II opioid drug.,... Start Date: 08/12/22 Stop Date: 11/10/22 Status: Ordered traMADol 50 mg oral tablet 1 tablet = 50 mg, By Mouth, Every 8 hours, PRN for pain, for 15 days, # 30 tablet, 0 Refills, Acute08/26/22 16:31:00 EDT, 08/11/22 16:31:00 EDT, Tablet, [id number], Partial fill upon patientrequest if the prescription is for a schedule II op... Start Date: 08/11/22 Stop Date: 08/26/22 Status: Ordered Truvada 200 mg-300 mg oral tablet 1 tablet, By Mouth, Daily, # 90 tablet, 0 Refills, Maintenance, 08/11/22 16:35:00 EDT, Tablet, [id number], Partial fill upon patient [...] 08/11/22 18:20:00 EDT, Route to Pharmacy Electronically, [facility]/pharmacy #[id number], Partial fill upon patient request if the [...] Confirmed [facility] Confirmed Active Obese class I Confirmed Active Uterine scar x1 Confirmed Active Social History Social History Type Response Tobacco Use: 4 or less cigar ettes(less than 1/4 pack)/day in last 30 days. Sex Patient Care team information Personnel Name: Felicita Melgar MD, I Address: Address: [address] [place] [id number]
--- NOTE | 2023-02-13 08:17 | ED.GENADULT ---
HPI - General Adult General Chief complaint: General Medical Stated complaint: diff breathing Time Seen by Provider: 02/13/23 07:56 Source: patient Mode of arrival: ambulatory History of Present Illness HPI narrative: 32-year-old female with history of asthma and after review of her chart also has noted significant respiratory history and comes in with a rash this started on her proximal thighs, itchy, not associated with fevers or chills and denies any new products, clothing, soaps or lotions. Patient states that she then woke up in the middle the night with increased shortness of breath and has used her albuterol inhaler. Patient states that she has taken a home COVID-19 test that was negative. Related Data Home Medications Medication Instructions Recorded Confirmed albuterol sulfate 90 mcg/actuation 2 puff inhalation Q4H 07/18/22 07/18/22 aerosol inhaler (ProAir HFA) bictegravir 50 mg-emtricitabine 1 tab PO DAILY 07/18/22 07/18/22 200 mg-tenofovir alafenam 25 mg tablet (Biktarvy) Previous Rx's Medication Instructions Recorded apixaban 5 mg tablet (Eliquis) 10 mg PO BID #74 tabs 07/20/22 azithromycin 500 mg tablet 500 mg PO DAILY 7 days #7 tabs 07/20/22 cefuroxime axetil 500 mg tablet 500 mg PO BID #14 tabs 07/20/22 tramadol 50 mg tablet 50 mg PO BID PRN pain #7 tabs 10/01/22 clindamycin HCl 300 mg capsule 300 mg PO Q6H 7 days #28 caps 02/13/23 Allergies Allergy/AdvReac Type Severity Reaction Status Date / Time sulfamethoxazole Allergy Severe SWELLING Verified 07/18/22 09:02 [From BACTRIM] trimethoprim [From BACTRIM] Allergy Severe SWELLING Verified 07/18/22 09:02 Sulfa (Sulfonamide Allergy Unknown Unknown Verified 07/18/22 09:02 Antibiotics) Review of Systems Review of Systems: Pertinent positives and negatives as stated in [facility] Past Medical History Source: nursing notes reviewed Medical History Bronchiectasis HIV (human immunodeficiency virus infection) No acute medical problems Surgical History History of appendectomy Tubal ligation status Social History Social History Household Members: Spouse and Children Housing: Apartment Do you presently have visiting nurse or other home services: No Alcohol intake: never Patient Tobacco Use Status: Current someday Tobacco user Tobacco use type: Cigarette Smoked in Last 30 Days: No Use of substances other than those prescribed or required for medical reasons: No Substance Use Type: Marijuana Advance Directives: No Advance Directives Information Provided: No Patient : No service: No Physical Exam ED Vital Signs: Vital Signs - 24 hr 02/13/23 07:33 02/13/23 08:40 Temperature 98.3 F Pulse Rate 76 78 Respiratory Rate 16 16 Blood Pressure 114/76 Pulse Oximetry 98 Oxygen Delivery Method Room Air BMI result Body Mass Index 30.1 VITAL SIGNS: Reviewed. GENERAL: Well developed, well nourished, in no acute distress. HEAD: Normocephalic/atraumatic EYES: PERRLA, EOMI EARS: Ext canals without abnormality, TMs non-bulging and non-erythematous NOSE: Nares patent bilateral OROPHARYNX: no oral lesions noted, posterior pharynx clear and non-erythematous without noted tonsillar enlargement/erythema/exudates NECK: Supple, no adenopathy LUNGS: Good inspiratory effort, mild expiratory crackles and wheeze but no tachypnea. SpO2<98> CARDIOVASCULAR: Regular rate and rhythm without noted murmurs ABDOMEN: Soft, non-tender, non-distended with bowel sounds. MUSCULOSKELETAL: No tenderness, deformities, or effusions noted on gross inspection. EXTREMITIES: No cyanosis, clubbing or edema. SKIN: Inspection of the skin reveals macular rash to entire body but spares palms soles NEUROLOGIC: Alert and oriented x 4. Strength and sensation to light touch were grossly intact x 4. Medications Administered Discontinued Medications Generic Name Dose Route Start Last Admin Trade Name Freq PRN Reason Stop Dose Admin Albuterol Sulfate 10 mg/ 0 mg 02/13/23 08:19 02/13/23 08:39 Ipratropium [place] 0.5 mg INHALE 02/13/23 08:20 10 each ONCE ONE Administration Diphenhydramine HCl 25 mg 02/13/23 08:16 02/13/23 08:22 Diphenhydramine Hcl 25 Mg Capsule PO 02/13/23 08:17 25 mg ONCE ONE Administration Medical Decision Making Medical Decision Making MDM Narrative: 32-year-old female with history and clinical presentation suggestive of possible viral illness with exam thumb but also has significant history of HIV, PE. PERC negative. Will evaluate labs, viral testing to include mono/strep. Patient will also receive Benadryl and DuoNeb. On re-evaluation and review of all investigations patient is feeling better but still feeling itchy in further endorses that she is taking all of her home medications as prescribed and that all her lab values for her underlying conditions have been stable without issue. She does state that she was recently treated for a tooth infection with amoxicillin but then developed a rash and so stopped taking the medication. She states that the rash has not gone away. After review of all investigations my interpretation is that patient has a rash consistent with her reaction to amoxicillin. Differential Diagnosis Please see the discussion above Lab Data Please see the discussion above 02/13/23 08:42 02/13/23 08:42 Labs: Lab Results 02/13/23 02/13/23 02/13/23 Range/Units 07:49 08:42 08:42 WBC 2.1 L (4.8-10.8) X10*3/uL RBC 4.21 D (4.20-5.50) X10*6/uL Hgb 11.4 L D (12.0-16.0) g/dl Hct 35.6 L D (37.0-47.0) % MCV 84.6 (80.0-98.0) fL MCH 27.1 (27.0-33.0) pg MCHC 32.0 (31.0-35.0) g/dl RDW 22.5 H (11.0-16.0) % Plt Count 166 D (160-400) X10*3/uL MPV 11.1 (9.4-12.3) fL Immature Gran % (Auto) 0.5 H (0.0-0.4) % Neut % (Auto) 69.2 (45-73) % Lymph % (Auto) 21.5 (20-40) % [place] % (Auto) 6.8 (2-11) % Eos % (Auto) 1.5 (0-4) % Baso % (Auto) 0.5 (0-2) % Lymph # (Auto) 0.4 L (1.2-4.9) X10*3/uL [place] # (Auto) 0.1 (0.1-1.2) X10*3/uL Eos # (Auto) 0.0 (0.0-0.4) X10*3/uL Baso # (Auto) 0.0 (0.0-0.2) X10*3/uL Abs Immat Gran (auto) 0.01 (0.00-0.03) X10*3/uL Absolute Neuts (auto) 1.4 L (2.0-8.3) x10*3/uL Absolute Nucleated RBC 0.000 (0.0-0.012) X10*3/uL Nucleated RBC % (auto) 0.0 (0.0-0.2) /100WBC Smear Tech's Comments VERIFIED Sodium 140 (135-145) mmol/L Potassium 3.9 (3.3-5.1) mmol/L Chloride 112 H (96-108) mmol/L Carbon Dioxide 20 L (22-29) mmol/L Anion Gap 12 (12-20) BUN 13 (9-16) mg/dL Creatinine 0.62 (0.5-1.4) mg/dL Estim Creat Clear Calc 139.1 Estimated GFR > 60 Random Glucose 81 (60-115) mg/dL Calcium 8.2 L (8.4-10.2) mg/dL Total Bilirubin 0.4 (0.0-1.0) mg/dL AST 34 H (5-31) U/L ALT 22 (0-31) U/L Alkaline Phosphatase 103 (39-117) U/L Total Protein 6.5 (6.5-8.0) g/dL Albumin 3.5 (3.5-5.0) g/dL Monoscreen (Negative) Influenza Type A (PCR) NEGATIVE (Negative) Influenza Type B (PCR) NEGATIVE (Negative) RSV RNA Qual (PCR) NEGATIVE (Negative) SARS-CoV-2 RNA (RT-PCR) NEGATIVE (Negative) S. pyogenes GrpA CEFERINO (Negative) 02/13/23 02/13/23 Range/Units 08:42 08:54 WBC (4.8-10.8) X10*3/uL RBC (4.20-5.50) X10*6/uL Hgb (12.0-16.0) g/dl Hct (37.0-47.0) % MCV (80.0-98.0) fL MCH (27.0-33.0) pg MCHC (31.0-35.0) g/dl RDW (11.0-16.0) % Plt Count (160-400) X10*3/uL MPV (9.4-12.3) fL Immature Gran % (Auto) (0.0-0.4) % Neut % (Auto) (45-73) % Lymph % (Auto) (20-40) % [place] % (Auto) (2-11) % Eos % (Auto) (0-4) % Baso % (Auto) (0-2) % Lymph # (Auto) (1.2-4.9) X10*3/uL [place] # (Auto) (0.1-1.2) X10*3/uL Eos # (Auto) (0.0-0.4) X10*3/uL Baso # (Auto) (0.0-0.2) X10*3/uL Abs Immat Gran (auto) (0.00-0.03) X10*3/uL Absolute Neuts (auto) (2.0-8.3) x10*3/uL Absolute Nucleated RBC (0.0-0.012) X10*3/uL Nucleated RBC % (auto) (0.0-0.2) /100WBC Smear Tech's Comments Sodium (135-145) mmol/L Potassium (3.3-5.1) mmol/L Chloride (96-108) mmol/L Carbon Dioxide (22-29) mmol/L Anion Gap (12-20) BUN (9-16) mg/dL Creatinine (0.5-1.4) mg/dL Estim Creat Clear Calc Estimated GFR Random Glucose (60-115) mg/dL Calcium (8.4-10.2) mg/dL Total Bilirubin (0.0-1.0) mg/dL AST (5-31) U/L ALT (0-31) U/L Alkaline Phosphatase (39-117) U/L Total Protein (6.5-8.0) g/dL Albumin (3.5-5.0) g/dL Monoscreen Negative (Negative) Influenza Type A (PCR) (Negative) Influenza Type B (PCR) (Negative) RSV RNA Qual (PCR) (Negative) SARS-CoV-2 RNA (RT-PCR) (Negative) S. pyogenes GrpA CEFERINO Negative (Negative) External Record Review External record reviewed: Outpatient record and Prior outpatient labs Discharge Plan Discharge Clinical Impression: Rash, Shortness of breath, Infection of tooth Patient Disposition: Home, Self-Care Instructions: Asthma (ED), Dental Abscess (ED), Toothache (ED), Shortness of Breath (ED) Additional Instructions: 1. Resume all home medications as prescribed. 2. Complete the course of antibiotics as ordered. 3. You will need to continue taking Benadryl for the next 1-2 days. 4. Please follow-up with your primary care provider at your earliest convenience. Return to the ER for any worsening symptoms. Prescriptions: New clindamycin HCl 300 mg capsule 300 mg PO Q6H 7 Days Qty: 28 0RF No Action tramadol 50 mg tablet 50 mg PO BID PRN (Reason: pain) Qty: 7 0RF albuterol sulfate [ProAir HFA] 90 mcg/actuation HFA aerosol inhaler 2 puff inhalation Q4H Biktarvy 50-200-25 mg tablet 1 tab PO DAILY Eliquis 5 mg Tablet 10 mg PO BID Qty: 74 0RF Rx Instructions: 10mg bid for 4 more days then decrease to 5mg bid cefuroxime axetil 500 mg tablet 500 mg PO BID Qty: 14 0RF azithromycin 500 mg tablet 500 mg PO DAILY 7 Days Qty: 7 0RF Referrals: Felicita Melgar MD [Primary Care Provider] - (Reaction to amoxicillin/Augmentin with rash....switched to Clindamycin.)
[2023-02-13] MEDS: diphenhydrAMINE HCL 25 MG CAPSULE PO (08:22)
[2023-02-13 08:40] VITALS: PULSE 78; RESP 16; O2SAT 96
[2023-02-13 08:55] LABS: Influenza A PCR NEGATIVE (Negative); Influenza B PCR NEGATIVE (Negative); Resp Syncy Virus RNA Qual PCR NEGATIVE (Negative); SARS COV2 PCR INHOUSE NEGATIVE (Negative)
[2023-02-13 09:00] LABS: Basophils Percent Auto 0.5 % (0-2); Eosinophils Percent Auto 1.5 % (0-4); Hematocrit 35.6 % (37.0-47.0); Hemoglobin 11.4 g/dl (12.0-16.0); Imm Gran Abs Auto 0.01 X10*3/uL (0.00-0.03); Imm Gran Pct Auto 0.5 % (0.0-0.4); Lymphocytes Absolute Auto 0.4 X10*3/uL (1.2-4.9); Lymphocytes Percent Auto 21.5 % (20-40); MANUAL DIFF FLAG SCAN; Mean Corpuscular Hemoglobin 27.1 pg (27.0-33.0); Mean Corpuscular Volume 84.6 fL (80.0-98.0); Mean Platelet Volume 11.1 fL (9.4-12.3); Monocytes Absolute Auto 0.1 X10*3/uL (0.1-1.2); Monocytes Percent Auto 6.8 % (2-11); Neutrophils Absolute Auto 1.4 x10*3/uL (2.0-8.3); Neutrophils Percent Auto 69.2 % (45-73); Platelet Count 166 X10*3/uL (160-400); Red Blood Count 4.21 X10*6/uL (4.20-5.50); Red Cell Distribution Width 22.5 % (11.0-16.0); SCAN SMEAR FLAG 1
[2023-02-13 09:01] LABS: White Blood Count 2.1 X10*3/uL (4.8-10.8)
[2023-02-13 09:10] LABS: Alanine Aminotransferase 22 U/L (0-31); Albumin Level 3.5 g/dL (3.5-5.0); Alkaline Phosphatase 103 U/L (39-117); Anion Gap 12 (12-20); Aspartate Amino Transferase 34 U/L (5-31); Bilirubin Total 0.4 mg/dL (0.0-1.0); Blood Urea Nitrogen 13 mg/dL (9-16); Calcium 8.2 mg/dL (8.4-10.2); Carbon Dioxide 20 mmol/L (22-29); Chloride 112 mmol/L (96-108); Creatinine Clr Calc Pharmacy 139.1; Estimated Glomerular Filt Rate > 60; Glucose Random 81 mg/dL (60-115); Potassium 3.9 mmol/L (3.3-5.1); Sodium 140 mmol/L (135-145); Total Protein 6.5 g/dL (6.5-8.0)
[2023-02-13 09:22] LABS: IDNOW Serial# 08D9AD1C; Strep A Nucleic Acid Negative (Negative)
[2023-02-13 09:25] LABS: Monotest Negative (Negative); SLIDE REVIEW VERIFIED
== END 2023-02-13 10:20 | disposition home or self-care (01) ==
PROVIDERS: Emergency Provider Student in an Organized Health Care Education/Training Program; PCP Internal Medicine
DX: R06.02 Shortness of breath (principal); R21 Rash and other nonspecific skin eruption; K04.7 Periapical abscess without sinus; Z20.822 Contact with and (suspected) exposure to COVID-19; Z20.828 Contact with and (suspected) exposure to other viral communicable diseases; Z79.899 Other long term (current) drug therapy
CPT/HCPCS: 0241U; 36415; 71045; 80053; 85025; 86308; 87651; 94640; 99284

== ENCOUNTER 2023-07-09 07:46 | Inpatient (IN) | payer OTHER, SELFPAY ==
--- NOTE | ~2023-07-09 | XR_ITS ---
EXAMINATION: XR CHEST CLINICAL INFORMATION: Cough and fever COMPARISON: None available. TECHNIQUE: Frontal view of the chest was obtained. FINDINGS: No significant abnormality is noted involving the heart, lungs, mediastinum, bony thorax or soft tissues. XR/XR chest 1V IMPRESSION: Unremarkable chest examination.
--- NOTE | ~2023-07-09 | CT_ITS ---
EXAMINATION: CT ANGIOGRAM OF THE CHEST WITH AND WITHOUT CONTRAST (CT PULMONARY ANGIOGRAM FOR PE) CLINICAL INFORMATION: Reason for Exam chest pain, dyspnea, elevated ddimer COMPARISON: None available. Chest x-ray 07/09/2023 TECHNIQUE: Prior to contrast administration, noncontrast localization images were obtained. Subsequently, multidetector volumetric imaging was performed from the thoracic inlet to below the diaphragms following the administration of 80 mL Omnipaque 350 intravenous contrast. No contrast reaction reported Sagittal, coronal, and MIP oblique sagittal reformatted images were obtained on the CT workstation, uploaded to PACS, and reviewed. This CT examination was performed using dose optimization techniques as appropriate, variously including the following: *Automated exposure control *Adjustment of mA and/or kV according to patient size (this includes techniques or standardized protocols for targeted exams where dose is matched to indication/reason for exam; i.e. extremities or head) *Use of iterative reconstruction technique Total exam dose-length product 231 mGy-cm FINDINGS: QUALITY OF STUDY/CONTRAST BOLUS: Satisfactory. PULMONARY ARTERIES: No pulmonary emboli. THORACIC AORTA: No aneurysm. LUNG: The lungs are well-expanded with right lower lobe basilar bronchiectasis with patchy parenchymal opacity suggestive of bronchopneumonia. There is a right parahilar patchy opacity on coronal image 45/9 likely perihilar infiltrate. Minimal atelectasis and trace bronchiectasis is seen in the left lung base. There is a 4 mm nodule right upper lobe subpleural-based axial image 21/6. There is small cysts are noted with pedicle opacity right upper lobe axial image 28/6. There is groundglass opacity seen in the right upper lobe medially on axial image 29/6 PLEURA: No pleural effusion or pneumothorax. MEDIASTINUM: Normal heart size. No pericardial effusion. There is a right hilar lymph nodes likely inflammatory. No evidence of septal bowing or right heart strain. CORONARY ARTERY CALCIFICATION: None visualized on this study. CHEST WALL/AXILLA: There are small shotty lymph nodes in bilateral axilla. The chest wall is unremarkable. OSSEOUS STRUCTURES: No acute or suspicious osseous abnormality. UPPER ABDOMEN: Unremarkable. No reflux of contrast into the hepatic veins to suggest elevated right heart pressures. CT/CT angio chest PE protocol IMPRESSION: 1. No evidence of PE. 2. No evidence aortic dissection or aneurysm. 3. Right lower lobe basilar bronchiectasis with patchy parenchymal opacity suggestive of bronchopneumonia. There is a right perihilar infiltrate and parahilar inflammatory lymph nodes.. 4. 4 mm nodule right upper lobe. Small central cysts surrounding the pedicle opacity right upper lobe question resolving infiltrate. Could these composite findings may represent granulomatous disease such as TB, less likely sarcoid. Correlate with clinical test. VTE: negative.
[2023-07-09 07:56] VITALS: BP 114/63; PULSE 94; RESP 18; TEMP 37.3; O2SAT 97; BMI 28.3
--- NOTE | 2023-07-09 08:09 | ECG_ITS ---
Test Reason : DRUG MONITORING Blood Pressure : / mmHG Vent. Rate : 084 BPM Atrial Rate : 084 BPM P-R Int : 158 ms QRS Dur : 074 ms QT Int : 376 ms P-R-T Axes : 003 052 029 degrees QTc Int : 444 ms Normal sinus rhythm Normal ECG When compared with ECG of 30-SEP-2022 22:54, Heart rate has decreased Referred By: Nikki Mckeon Electronically Signed By:PRIYA FAIRCHILD
--- NOTE | 2023-07-09 08:18 | ED_ITS ---
HPI - SOB/Dyspnea General Chief Complaint: General Medical Stated Complaint: L side chest pain x 3 days per EMS Time Seen by Provider: 07/09/23 07:46 Source: patient, EMS and old records reviewed Mode of arrival: EMS Limitations: no limitations History of Present Illness HPI Narrative: 32 yo female with hx of MAC avium pneumonia, HIV last CD4 we have was in the 40s, mediastinal adenopathy currently under treatment at [facility] but does not know much information she has been started on therapy and has a bag full of medicine that she is taking though did not dose herself this AM. Her medications include azithromycin, biktarvy, ethambutol, atovaquone - she states they make her feel ill and she doesn't like them. I am not sure she is compliant to be honest. She comes in with feeling cough, sputum production no blood, fevers up to 103.8, weakness, dyspnea and L sided pleuritic chest pain x 4 days. Patient is not vaccinated against COVID has not had any vaccines during the pandemic MD elicited complaint: shortness of breath, cough, pain with inspiration and chest pain Pertinent past history: pneumonia and other (HIV) Onset (ago): day(s) (4) Context: other (HIV) Timing: progressively worsening Severity: moderate Exacerbating factors: exertion and coughing Relieving factors: rest Known history of: recurrent pneumonia Associated symptoms: chest pain, fever, cough, wheezing and sputum production Treatment prior to arrival: none Related Data Home Medications Medication Instructions Recorded Confirmed albuterol sulfate 90 mcg/actuation 2 puff inhalation Q4H PRN 07/18/22 07/09/23 aerosol inhaler (ProAir HFA) Shortness Of Breath Or Wheezing bictegravir 50 mg-emtricitabine 1 tab PO DAILY 07/18/22 07/09/23 200 mg-tenofovir alafenam 25 mg tablet (Biktarvy) atovaquone 750 mg/5 mL oral 750 mg PO BID 07/09/23 07/09/23 suspension budesonide-formoterol HFA 160 2 puff inhalation BID 07/09/23 07/09/23 mcg-4.5 mcg/actuation aerosol inhaler (Symbicort) ethambutol 400 mg tablet 1,200 mg PO DAILY 07/09/23 07/09/23 Previous Rx's Medication Instructions Recorded azithromycin 500 mg tablet 500 mg PO DAILY 7 days #7 tabs 07/20/22 Allergies Allergy/AdvReac Type Severity Reaction Status Date / Time sulfamethoxazole Allergy Severe SWELLING Verified 07/18/22 09:02 [From BACTRIM] trimethoprim [From BACTRIM] Allergy Severe SWELLING Verified 07/18/22 09:02 Sulfa (Sulfonamide Allergy Unknown Unknown Verified 07/18/22 09:02 Antibiotics) Review of Systems Review of Systems: Constitutional : pos Fever, pos Chills ENT/Mouth : No Hoarseness, No sore throat, No Rhinorrhea Eyes: No Redness, No Discharge, No Vision Changes Cardiovascular : No Chest Pain, positive SOB, positive Dyspnea on Exertion, No Edema Respiratory : positive Cough, pos Sputum, positive Wheezing, Gastrointestinal : pos Nausea, No Vomiting, No Diarrhea, No abdominal Pain Genitourinary : No Dysuria, No Hematuria Musculoskeletal : No joint pain, pos Myalgias Skin : No rash Neuro : No Weakness, No Numbness, No Headache Psych : No anxiety, depression Heme/Lymph: No Bruising, No Bleeding Endocrine : No Polyuria, No Polydipsia All other systems reviewed and are negative [facility] Past Medical History Attestation statement: The following information was validated with the patient. Medical History Bronchiectasis HIV (human immunodeficiency virus infection) No acute medical problems Surgical History History of appendectomy Tubal ligation status Social History Social History Household Members: Spouse and Children Housing: Apartment Do you presently have visiting nurse or other home services: No Alcohol intake: never Patient Tobacco Use Status: Current someday Tobacco user Tobacco use type: Cigarette Substance Use Type: Marijuana Advance Directives: No Advance Directives Information Provided: No service: No Physical Exam 2 Vital Signs: Vital Signs: Last Vital Signs Temp 99.2 F 07/09/23 07:56 Pulse 94 07/09/23 07:56 Resp 18 07/09/23 07:56 BP 114/63 07/09/23 07:56 Pulse Ox 97 07/09/23 07:56 O2 Del Method Room Air 07/09/23 07:56 BMI result Body Mass Index 28.3 Appearance: Alert. Oriented X3. No acute distress. older than stated age Eyes: Pupils equal, round and reactive to light. ENT: Pharynx normal. Neck: Normal inspection. Neck supple. CVS: Normal heart rate and rhythm. Pulses normal. Respiratory: No respiratory distress. Breath sounds very coarse and diminished with diffuse mild end exp wheezes Abdomen: Soft and nontender. Skin: Skin warm and dry. pale skin color. Normal skin turgor. Extremities: No lower extremity edema. No calf ttp Neuro: Oriented X 3. No motor deficit. No sensory deficit. Course Course Course Narrative: records from [facility] requested they state they have no recent HIV testing - last testing and results from Aug 2022 patient states her blood was done 4 months ago Reevaluation(s) Reevaluation #1: lung sounds improved, given wheezing will order PO prednisone Medications Administered Discontinued Medications Generic Name Dose Route Start Last Admin Trade Name Freq PRN Reason Stop Dose Admin Acetaminophen 650 mg 07/09/23 08:07 07/09/23 08:42 Acetaminophen 325 Mg Tablet PO 07/09/23 08:08 650 mg ONCE ONE Administration Albuterol Sulfate 2.5 mg 07/09/23 08:03 07/09/23 11:16 Albuterol Sulfate (0.083%) 2.5 Mg/3 Ml Vial.Neb INHALE 07/09/23 08:04 2.5 mg ONCE ONE Administration Atovaquone 750 mg 07/09/23 08:11 07/09/23 08:43 Atovaquone 750 Mg/5 Ml Oral.Susp PO 07/09/23 08:12 750 mg ONCE ONE Administration Sodium Chloride 1,000 mls @ 999 mls/hr 07/09/23 08:15 07/09/23 12:02 Ns IVCONT 07/09/23 09:15 Infused .Q1H1M AIDA Infusion Cefepime HCl 2 gm/ Sodium 50 mls @ 100 mls/hr 07/09/23 08:03 07/09/23 12:02 Chloride IV 07/09/23 08:32 Infused ONCE ONE Infusion Iohexol 65 ml 07/09/23 10:04 07/09/23 10:04 Iohexol 350 Mg/Ml 75 Ml Infus..Btl IV 07/09/23 10:05 65 ml ONCE ONE Administration Morphine Sulfate 4 mg 07/09/23 08:07 07/09/23 08:42 Morphine Sulfate 4 Mg/Ml Cartridge IVPUSH 07/09/23 08:08 4 mg ONCE ONE Administration Protocol Ondansetron HCl 4 mg 07/09/23 08:07 07/09/23 08:41 Ondansetron Hcl 4 Mg/2 Ml Vial IVPUSH 07/09/23 08:08 4 mg ONCE ONE Administration Medical Decision Making Medical Decision Making MDM Narrative: 32 yo female with hx of MAC avium pneumonia, HIV last CD4 we have was in the 40s, mediastinal adenopathy currently under treatment at [facility] here with 4 days of fevers up to 103.8, cough and sputum but no hemoptysis - she is wheezing and is currently under treatment for MAC avium pneumonia. She appears much older than stated age and after our discussion I am not sure how compliant she is with her medications as she does not like the way they feel. She will need labs, cultures, IVF, IV antibiotics - empiric cefepime. She did not take her atovaquone this AM but did take her azithromycin. I have ordered her atovaquone. nebulizer ordered as well. Possible CT scan +/- CTA pending ddimer. recent immunology studies from [facility] requested. Differential Diagnosis Differential Diagnoses: The differential diagnosis associated with the presentation includes AIDS associated infection, pneumonia, TB, PE, viral infection, COVID Admission/Observation Consideration of admission/observation: Escalation of care including admission/observation considered needs admission put on droplet and airborne precautions Consult Healthcare Provider Management of the patient was discussed with: Hospitalist will admit Lab Data [facility] Lab Attestation statement: I reviewed the patient's lab results. 07/09/23 08:37 07/09/23 08:37 Labs: Lab Results 07/09/23 07/09/23 07/09/23 Range/Units 08:37 08:37 08:37 WBC 3.3 L (4.8-10.8) X10*3/uL RBC 3.21 L D (4.20-5.50) X10*6/uL Hgb 9.7 L (12.0-16.0) g/dl Hct 29.6 L (37.0-47.0) % MCV 92.2 (80.0-98.0) fL MCH 30.2 (27.0-33.0) pg MCHC 32.8 (31.0-35.0) g/dl RDW 17.2 H (11.0-16.0) % Plt Count 127 L (160-400) X10*3/uL MPV 12.6 H (9.4-12.3) fL Immature Gran % (Auto) 0.3 (0.0-0.4) % Neut % (Auto) 79.9 H (45-73) % Lymph % (Auto) 11.7 L (20-40) % Lamb % (Auto) 7.8 (2-11) % Eos % (Auto) 0.3 (0-4) % Baso % (Auto) 0.0 (0-2) % Lymph # (Auto) 0.4 L (1.2-4.9) X10*3/uL Lamb # (Auto) 0.3 (0.1-1.2) X10*3/uL Eos # (Auto) 0.0 (0.0-0.4) X10*3/uL Baso # (Auto) 0.0 (0.0-0.2) X10*3/uL Abs Immat Gran (auto) 0.01 (0.00-0.03) X10*3/uL Absolute Neuts (auto) 2.7 (2.0-8.3) x10*3/uL Absolute Nucleated RBC 0.000 (0.0-0.012) X10*3/uL Nucleated RBC % (auto) 0.0 (0.0-0.2) /100WBC PT 10.9 L (11.1-13.3) SEC INR 0.9 (0.9-1.1) D-Dimer High Sensitivty 661 NG/ML VBG pH (7.32-7.43) VBG pCO2 mmHg VBG pO2 mmHg VBG HCO3 (22-26) mmol/L VBG O2 Saturation % VBG Base Excess mmol/L Sodium 136 (135-145) mmol/L Potassium 3.6 (3.3-5.1) mmol/L Chloride 111 H (96-108) mmol/L Carbon Dioxide 17 L (22-29) mmol/L Anion Gap 12 (12-20) BUN 14 (9-16) mg/dL Creatinine 0.75 (0.5-1.4) mg/dL Estim Creat Clear Calc 111.5 Estimated GFR > 60 Random Glucose 88 (60-115) mg/dL Lactic Acid (0.5-2.0) mmol/L Calcium 9.1 D (8.4-10.2) mg/dL Magnesium 2.1 (1.6-2.6) mg/dL Total Bilirubin 0.4 (0.0-1.0) mg/dL Direct Bilirubin 0.2 (0.0-0.5) mg/dL AST 45 H (5-31) U/L ALT 20 (0-31) U/L Alkaline Phosphatase 116 (39-117) U/L Lactate Dehydrogenase 268 H (122-220) U/L Troponin I High Sens (<3.5-17.0) ng/L Total Protein 7.2 (6.5-8.0) g/dL Albumin 3.5 (3.5-5.0) g/dL Lipase 38 (8-78) U/L Procalcitonin 0.09 ng/mL Urine Color Urine Appearance Urine pH (5.0-9.0) Ur Specific [place] (1.005-1.025) Urine Protein (Neg-Trace) mg/dL Urine Glucose (UA) (Negative) mg/dL Urine Ketones (Negative) mg/dL Urine Blood (Negative) Urine Nitrite (Negative) Ur Leukocyte Esterase (Negative) Urine RBC (0-2) /HPF Urine WBC (0-5) /HPF Ur Squamous Epith Cells (0-2) /HPF Urine Bacteria (None Seen) Hyaline Casts (0-2) /LPF Respiratory Panel Marcum Adenovirus (Rapid PCR) (Not Detect.) B.pert (TEM-PCR) (Not Detect.) B.parapertussis DNA PCR (Not Detect.) C. pneumoniae DNA (PCR) (Not Detect.) Coronavirus OC43 (PCR) (Not Detect.) Coronavirus HKU1 (PCR) (Not Detect.) Coronavirus 229E (PCR) (Not Detect.) Coronavirus NL63 (PCR) (Not Detect.) Human Metapneumovir PCR (Not Detect.) Influenza A (RT-PCR) (Not Detect.) Influenza B (RT-PCR) (Not Detect.) M. pneumoniae (PCR) (Not Detect.) Parainfluenza 1 (PCR) (Not Detect.) Parainfluenza 2 (PCR) (Not Detect.) Parainfluenza 3 (PCR) (Not Detect.) Parainfluenza 4 (PCR) (Not Detect.) RSV (PCR) (Not Detect.) Entero/Rhino (PCR) (Not Detect.) SARS-CoV-2 RNA (RT-PCR) (Not Detect.) 07/09/23 07/09/23 07/09/23 Range/Units 08:37 08:37 08:37 WBC (4.8-10.8) X10*3/uL RBC (4.20-5.50) X10*6/uL Hgb (12.0-16.0) g/dl Hct (37.0-47.0) % MCV (80.0-98.0) fL MCH (27.0-33.0) pg MCHC (31.0-35.0) g/dl RDW (11.0-16.0) % Plt Count (160-400) X10*3/uL MPV (9.4-12.3) fL Immature Gran % (Auto) (0.0-0.4) % Neut % (Auto) (45-73) % Lymph % (Auto) (20-40) % Lamb % (Auto) (2-11) % Eos % (Auto) (0-4) % Baso % (Auto) (0-2) % Lymph # (Auto) (1.2-4.9) X10*3/uL Lamb # (Auto) (0.1-1.2) X10*3/uL Eos # (Auto) (0.0-0.4) X10*3/uL Baso # (Auto) (0.0-0.2) X10*3/uL Abs Immat Gran (auto) (0.00-0.03) X10*3/uL Absolute Neuts (auto) (2.0-8.3) x10*3/uL Absolute Nucleated RBC (0.0-0.012) X10*3/uL Nucleated RBC % (auto) (0.0-0.2) /100WBC PT (11.1-13.3) SEC INR (0.9-1.1) D-Dimer High Sensitivty NG/ML VBG pH (7.32-7.43) VBG pCO2 mmHg VBG pO2 mmHg VBG HCO3 (22-26) mmol/L VBG O2 Saturation % VBG Base Excess mmol/L Sodium (135-145) mmol/L Potassium (3.3-5.1) mmol/L Chloride (96-108) mmol/L Carbon Dioxide (22-29) mmol/L Anion Gap (12-20) BUN (9-16) mg/dL Creatinine (0.5-1.4) mg/dL Estim Creat Clear Calc Estimated GFR Random Glucose (60-115) mg/dL Lactic Acid 0.8 (0.5-2.0) mmol/L Calcium (8.4-10.2) mg/dL Magnesium (1.6-2.6) mg/dL Total Bilirubin (0.0-1.0) mg/dL Direct Bilirubin (0.0-0.5) mg/dL AST (5-31) U/L ALT (0-31) U/L Alkaline Phosphatase (39-117) U/L Lactate Dehydrogenase (122-220) U/L Troponin I High Sens < 2.7 (<3.5-17.0) ng/L Total Protein (6.5-8.0) g/dL Albumin (3.5-5.0) g/dL Lipase (8-78) U/L Procalcitonin ng/mL Urine Color Urine Appearance Urine pH (5.0-9.0) Ur Specific [place] (1.005-1.025) Urine Protein (Neg-Trace) mg/dL Urine Glucose (UA) (Negative) mg/dL Urine Ketones (Negative) mg/dL Urine Blood (Negative) Urine Nitrite (Negative) Ur Leukocyte Esterase (Negative) Urine RBC (0-2) /HPF Urine WBC (0-5) /HPF Ur Squamous Epith Cells (0-2) /HPF Urine Bacteria (None Seen) Hyaline Casts (0-2) /LPF Respiratory Panel Marcum See Note Adenovirus (Rapid PCR) Not Detected (Not Detect.) B.pert (TEM-PCR) Not Detected (Not Detect.) B.parapertussis DNA PCR Not Detected (Not Detect.) C. pneumoniae DNA (PCR) Not Detected (Not Detect.) Coronavirus OC43 (PCR) Not Detected (Not Detect.) Coronavirus HKU1 (PCR) Detected A (Not Detect.) Coronavirus 229E (PCR) Not Detected (Not Detect.) Coronavirus NL63 (PCR) Not Detected (Not Detect.) Human Metapneumovir PCR Not Detected (Not Detect.) Influenza A (RT-PCR) Not Detected (Not Detect.) Influenza B (RT-PCR) Not Detected (Not Detect.) M. pneumoniae (PCR) Not Detected (Not Detect.) Parainfluenza 1 (PCR) Not Detected (Not Detect.) Parainfluenza 2 (PCR) Not Detected (Not Detect.) Parainfluenza 3 (PCR) Not Detected (Not Detect.) Parainfluenza 4 (PCR) Not Detected (Not Detect.) RSV (PCR) Not Detected (Not Detect.) Entero/Rhino (PCR) Not Detected (Not Detect.) SARS-CoV-2 RNA (RT-PCR) Not Detected (Not Detect.) 07/09/23 07/09/23 Range/Units 08:42 09:24 WBC (4.8-10.8) X10*3/uL RBC (4.20-5.50) X10*6/uL Hgb (12.0-16.0) g/dl Hct (37.0-47.0) % MCV (80.0-98.0) fL MCH (27.0-33.0) pg MCHC (31.0-35.0) g/dl RDW (11.0-16.0) % Plt Count (160-400) X10*3/uL MPV (9.4-12.3) fL Immature Gran % (Auto) (0.0-0.4) % Neut % (Auto) (45-73) % Lymph % (Auto) (20-40) % Lamb % (Auto) (2-11) % Eos % (Auto) (0-4) % Baso % (Auto) (0-2) % Lymph # (Auto) (1.2-4.9) X10*3/uL Lamb # (Auto) (0.1-1.2) X10*3/uL Eos # (Auto) (0.0-0.4) X10*3/uL Baso # (Auto) (0.0-0.2) X10*3/uL Abs Immat Gran (auto) (0.00-0.03) X10*3/uL Absolute Neuts (auto) (2.0-8.3) x10*3/uL Absolute Nucleated RBC (0.0-0.012) X10*3/uL Nucleated RBC % (auto) (0.0-0.2) /100WBC PT (11.1-13.3) SEC INR (0.9-1.1) D-Dimer High Sensitivty NG/ML VBG pH 7.49 H (7.32-7.43) VBG pCO2 23 mmHg VBG pO2 67 mmHg VBG HCO3 18 L (22-26) mmol/L VBG O2 Saturation 93.0 % VBG Base Excess -3.7 mmol/L Sodium (135-145) mmol/L Potassium (3.3-5.1) mmol/L Chloride (96-108) mmol/L Carbon Dioxide (22-29) mmol/L Anion Gap (12-20) BUN (9-16) mg/dL Creatinine (0.5-1.4) mg/dL Estim Creat Clear Calc Estimated GFR Random Glucose (60-115) mg/dL Lactic Acid (0.5-2.0) mmol/L Calcium (8.4-10.2) mg/dL Magnesium (1.6-2.6) mg/dL Total Bilirubin (0.0-1.0) mg/dL Direct Bilirubin (0.0-0.5) mg/dL AST (5-31) U/L ALT (0-31) U/L Alkaline Phosphatase (39-117) U/L Lactate Dehydrogenase (122-220) U/L Troponin I High Sens (<3.5-17.0) ng/L Total Protein (6.5-8.0) g/dL Albumin (3.5-5.0) g/dL Lipase (8-78) U/L Procalcitonin ng/mL Urine Color Dark Yellow Urine Appearance Cloudy Urine pH 6.5 (5.0-9.0) Ur Specific [place] >= 1.030 H (1.005-1.025) Urine Protein 300 (3+) H (Neg-Trace) mg/dL Urine Glucose (UA) Negative (Negative) mg/dL Urine Ketones Trace (Negative) mg/dL Urine Blood Negative (Negative) Urine Nitrite Negative (Negative) Ur Leukocyte Esterase Trace H (Negative) Urine RBC 0-2 (0-2) /HPF Urine WBC 0-5 (0-5) /HPF Ur Squamous Epith Cells >20 (0-2) /HPF Urine Bacteria 2+ (None Seen) Hyaline Casts 0-2 (0-2) /LPF Respiratory Panel Marcum Adenovirus (Rapid PCR) (Not Detect.) B.pert (TEM-PCR) (Not Detect.) B.parapertussis DNA PCR (Not Detect.) C. pneumoniae DNA (PCR) (Not Detect.) Coronavirus OC43 (PCR) (Not Detect.) Coronavirus HKU1 (PCR) (Not Detect.) Coronavirus 229E (PCR) (Not Detect.) Coronavirus NL63 (PCR) (Not Detect.) Human Metapneumovir PCR (Not Detect.) Influenza A (RT-PCR) (Not Detect.) Influenza B (RT-PCR) (Not Detect.) M. pneumoniae (PCR) (Not Detect.) Parainfluenza 1 (PCR) (Not Detect.) Parainfluenza 2 (PCR) (Not Detect.) Parainfluenza 3 (PCR) (Not Detect.) Parainfluenza 4 (PCR) (Not Detect.) RSV (PCR) (Not Detect.) Entero/Rhino (PCR) (Not Detect.) SARS-CoV-2 RNA (RT-PCR) (Not Detect.) ABG Data Attestation ABG: I personally reviewed and interpreted this ABG as follows: Interpretation: VBG stable Independent Interpretation I performed an independent interpretation of an: EKG, Plain X-Ray (no consolidation on CXR) and CT Scan (opacities seen) Interpretation: Rate: 84 Rhythm: NSR Porum: normal Normal P waves. Normal MONIQUE. Normal QRS complex. ST T wave : normal no TERA qTC: normal prior studies: no acute ischemia The study has been interpreted contemporaneously by me. . Radiology Impression Discussion of test interpretation with radiology: I have reviewed the radiologist's reading. Independent Historian Clinical information obtained from an independent historian. History obtained from or confirmed by: EMS External Record Review External record reviewed: Inpatient record, Office record, Outpatient record and Prior outpatient labs Social Determinants Patient?s care significantly limited by Social Determinants of Health including: Other Social Determinant of Health Critical Care Time Critical Care Time Critical Care Time: Yes Total Critical Care Time: 35 Attestation: nebs, antibiotics, review and obtaining records, IV antibiotics I attest to this time spent taking care of the patient Discharge Plan Discharge Clinical Impression: Bronchopneumonia, Acute febrile illness, COVID-19 HIV (human immunodeficiency virus infection) Qualifiers: HIV symptom status: symptomatic Qualified Code(s): B20 - Human immunodeficiency virus [HIV] disease Patient Disposition: Admitted As Inpatient
[2023-07-09] MEDS: 0.9 % Sodium Chloride 1,000 ML 999 ML IVCONT (08:41)
[2023-07-09] MEDS: ondansetron HCL 4 MG/2 ML VIAL IVPUSH (08:41)
[2023-07-09] MEDS: cefEPime HCl 2 GM in 0.9 % Sodium Chloride 50 ML IV (08:42)
[2023-07-09] MEDS: Morphine Sulfate 4 MG/ML CARTRIDGE IVPUSH (08:42)
[2023-07-09] MEDS: Acetaminophen 325 MG TABLET 650 MG PO ×2 (08:42→15:43)
[2023-07-09] MEDS: Atovaquone 750 MG/5 ML ORAL.SUSP PO ×2 (08:43→20:41)
[2023-07-09 08:46] LABS: MANUAL DIFF FLAG NO
[2023-07-09 08:47] LABS: Eosinophils Percent Auto 0.3 % (0-4); Hematocrit 29.6 % (37.0-47.0); Hemoglobin 9.7 g/dl (12.0-16.0); Imm Gran Abs Auto 0.01 X10*3/uL (0.00-0.03); Imm Gran Pct Auto 0.3 % (0.0-0.4); Lymphocytes Absolute Auto 0.4 X10*3/uL (1.2-4.9); Lymphocytes Percent Auto 11.7 % (20-40); Mean Corpuscular HGB Conc 32.8 g/dl (31.0-35.0); Mean Corpuscular Hemoglobin 30.2 pg (27.0-33.0); Mean Corpuscular Volume 92.2 fL (80.0-98.0); Mean Platelet Volume 12.6 fL (9.4-12.3); Monocytes Absolute Auto 0.3 X10*3/uL (0.1-1.2); Monocytes Percent Auto 7.8 % (2-11); Neutrophils Absolute Auto 2.7 x10*3/uL (2.0-8.3); Neutrophils Percent Auto 79.9 % (45-73); Platelet Count 127 X10*3/uL (160-400); Red Blood Count 3.21 X10*6/uL (4.20-5.50); Red Cell Distribution Width 17.2 % (11.0-16.0); White Blood Count 3.3 X10*3/uL (4.8-10.8)
[2023-07-09 08:50] LABS: VBG Base Excess -3.7 mmol/L; VBG HCO3 18 mmol/L (22-26); VBG pCO2 23 mmHg; VBG pH 7.49 (7.32-7.43); VBG pO2 67 mmHg
[2023-07-09 08:53] LABS: Venous Blood Gas Refer to POC result
[2023-07-09 09:01] LABS: INTERNATIONAL NORM RATIO 0.9 (0.9-1.1); Lactic Acid 0.8 mmol/L (0.5-2.0); Prothrombin Time 10.9 SEC (11.1-13.3)
[2023-07-09 09:02] LABS: D Dimer High Sensitivity 661 NG/ML
--- NOTE | 2023-07-09 09:08 | PC.NURSE ---
patient took home medications. atovaquone, biktarvy, ethambutol, azythromicin, and symbacourt. iv establised labs obtained meds given as ordered
[2023-07-09 09:15] LABS: Alanine Aminotransferase 20 U/L (0-31); Albumin Level 3.5 g/dL (3.5-5.0); Alkaline Phosphatase 116 U/L (39-117); Anion Gap 12 (12-20); Aspartate Amino Transferase 45 U/L (5-31); Bilirubin Direct 0.2 mg/dL (0.0-0.5); Bilirubin Total 0.4 mg/dL (0.0-1.0); Blood Urea Nitrogen 14 mg/dL (9-16); Calcium 9.1 mg/dL (8.4-10.2); Carbon Dioxide 17 mmol/L (22-29); Chloride 111 mmol/L (96-108); Creatinine Clr Calc Pharmacy 111.5; Estimated Glomerular Filt Rate > 60; Glucose Random 88 mg/dL (60-115); Lactate Dehydrogenase 268 U/L (122-220); Lipase 38 U/L (8-78); Magnesium 2.1 mg/dL (1.6-2.6); Potassium 3.6 mmol/L (3.3-5.1); Sodium 136 mmol/L (135-145); Total Protein 7.2 g/dL (6.5-8.0)
[2023-07-09 09:33] LABS: Appearance Urine Cloudy; Color Urine Dark Yellow; Glucose Urine UA Negative (Negative); Leukocyte Esterase Urine Trace (Negative); Nitrite Urine Negative (Negative); PH 6.5 (5.0-9.0); Specific Gravity - Urine >= 1.030 (1.005-1.025); UMIC TRIGGER UACC YES; Urine Blood Negative (Negative); Urine Ketones Trace mg/dL (Negative); Urine Protein 300 (3+) mg/dL (Neg-Trace)
[2023-07-09 09:35] LABS: Bacteria Urine 2+ (None Seen); Hyaline Casts Urine 0-2 /LPF (0-2); RBC Urine 0-2 /HPF (0-2); Squamous Epithelial Cell Urine >20 /HPF (0-2); WBC Urine 0-5 /HPF (0-5)
[2023-07-09 09:37] LABS: Procalcitonin 0.09 ng/mL; Troponin-I High Sensitivity < 2.7 ng/L (<3.5-17.0)
[2023-07-09] MEDS: iohexoL 350 MG/ML 75 ML INFUS..BTL 65 ML IV (10:04)
[2023-07-09] MEDS: Albuterol Sulfate (0.083%) 2.5 MG/3 ML VIAL.NEB INHALE (11:16)
[2023-07-09 11:29] LABS: Coronavirus HKU1 PCR Detected (Not Detect.)
[2023-07-09 11:30] LABS: Adenovirus PCR Not Detected (Not Detect.); Bordetella parapertussis PCR Not Detected (Not Detect.); Bordetella pertussis PCR Not Detected (Not Detect.); Chlamydia pneumoniae PCR Not Detected (Not Detect.); Coronavirus 229E PCR Not Detected (Not Detect.); Coronavirus NL63 PCR Not Detected (Not Detect.); Coronavirus OC43 PCR Not Detected (Not Detect.); Human metapneumovirus PCR Not Detected (Not Detect.); Influenza A PCR Not Detected (Not Detect.); Influenza B PCR Not Detected (Not Detect.); Mycoplasma pneumoniae PCR Not Detected (Not Detect.); Parainfluenza 1 PCR Not Detected (Not Detect.); Parainfluenza 2 PCR Not Detected (Not Detect.); Parainfluenza 3 PCR Not Detected (Not Detect.); Parainfluenza 4 PCR Not Detected (Not Detect.); RSV PCR Not Detected (Not Detect.); Rhino/Enterovirus PCR Not Detected (Not Detect.); SARS-CoV-2 PCR Not Detected (Not Detect.)
--- NOTE | 2023-07-09 11:51 | PHA.MEDREC ---
Pharmacy Consult ? Medication Reconciliation Pharmacy has completed the medication reconciliation. spoke with patient to confirm medications. She reported taking everything today besides albuterol inhaler.
[2023-07-09] MEDS: predniSONE 20 MG TABLET 40 MG PO (12:21)
--- NOTE | 2023-07-09 12:52 | P.HPHOSP_ITS ---
Patient seen and examined at bedside. I agree with OTTO note assessment and plan Patient will be admitted for management of pneumonia,. 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 She states she has had fevers up to 103.8 as well as occasionally productive cough, shortness of breath and wheezing, and left-sided pleuritic chest pain. She denies any known sick contacts. Denies any sore throat, sinus pressure, rhinorrhea, abdominal pain, nausea, vomiting, diarrhea, lightheadedness, headache, or retrosternal chest pressure. She is not vaccinated against COVID- 19. She is currently being treated for MAC initially diagnosed in 07/2022 and reports compliance with atovaquone, azithromycin, and ethambutol. She follows with Dr. Melgar in ID at [facility]. Reviewed [facility] records, was last seen in 11/10 with CD4 count 18, HIV RNA viral load 50. She does report compliance with all medications including Bitarvy. On arrival, patient afebrile, temperature 99.2 degrees, mildly tachycardic to 94, vitals otherwise stable. No hypoxia. There is a mild leukopenia 3.3 and stable normocytic anemia with H/H 9.7/29.6%. VBG pH 7.49, pCO2 23, bicarb 18. Renal function normal, electrolyte levels normal except for CO2 of 17. LDH 268. Troponin undetectable. Procalcitonin 0.09. Urinalysis unremarkable. Respiratory viral panel positive for coronavirus H KU 1, negative for COVID-19, influenza, RSV. CXR unremarkable. D-dimer elevated at 661. Chest CTA ordered and negative for PE, aortic dissection or aneurysm. There is right lower lobe basilar bronchiectasis with patchy parenchymal opacities suggestive bronchopneumonia as well as right perihilar infiltrate in perihilar inflammatory lymph nodes. There is a small 4 mm nodule in the right upper lobe as well as small central cyst surrounding the pedicle opacity right upper lobe with question of resolving infiltrate possibly representing granulomatous disease such as TB less likely sarcoid. In the ED, treated with IV cefepime, 4 mg morphine, 1 L IVF, ondansetron, 750 mg atovaquone, albuterol nebulizer, and 40 mg prednisone. Review of Systems Review of Systems: General: No malaise, unintentional weight loss. +fevers, +chills HEENT: No sore throat, nasal congestion, rhinorrhea, sinus pain, ear pain Cardiovascular: +left sided pleuritic cp. No retrosternal chest pressure, palpitations, or leg edema Respiratory: +sob, productive cough, wheezing. GI: No abdominal pain, nausea, vomiting, diarrhea, constipation, melena, h ematochezia : No dysuria, hematuria, increased urinary frequency, decreased urinary output MSK: No myalgia, back pain Neuro: No headaches, weakness, paresthesias Skin: No rashes or lesions [facility] Medical History (Updated 07/09/23 @ 13:11 by HILARIA Gifford) Bronchiectasis CAP (community acquired pneumonia) HIV (human immunodeficiency virus infection) Pulmonary Mycobacterium avium complex (MAC) infection Surgical History History of appendectomy Tubal ligation status Social History Household Members: Spouse and Children Housing: Apartment Do you presently have visiting nurse or other home services: No Alcohol intake: never Patient Tobacco Use Status: Current someday Tobacco user Tobacco use type: Cigarette Substance Use Type: Marijuana Advance Directives: No Advance Directives Information Provided: No service: No Meds Allergies Allergy/AdvReac Type Severity Reaction Status Date / Time sulfamethoxazole Allergy Severe SWELLING Verified 07/18/22 09:02 [From BACTRIM] trimethoprim [From BACTRIM] Allergy Severe SWELLING Verified 07/18/22 09:02 Sulfa (Sulfonamide Allergy Unknown Unknown Verified 07/18/22 09:02 Antibiotics) Active Medications: Current Medications Acetaminophen (Acetaminophen 325 Mg Tablet) 650 mg PO Q6H PRN PRN Reason: Pain, Mild (Pain Scale 1-3) Albuterol Sulfate (Albuterol Sulfate 90 Mcg 8 Gm Inhaler) 2 puff INHALE Q4H PRN PRN Reason: Shortness Of Breath Or Wheezing Albuterol/Ipratropium (Albuterol/Iprat 2.5/0.5mg 3 Ml Ampul.Neb) 3 ml INHALE RQ4H WHILE AWAKE [facility] Atovaquone (Atovaquone 750 Mg/5 Ml Oral.Susp) 750 mg PO BID [facility] Azithromycin (Azithromycin 500 Mg Tablet) 500 mg PO DAILY [facility] Bictegravir/Emtricitabine/Tenofovir (Bictegrav/Emtricit/Tenofov Ala Tablet) 1 tab PO DAILY [facility] Docusate Sodium (Docusate Sodium 100 Mg Capsule) 100 mg PO DAILY PRN PRN Reason: Constipation Enoxaparin Sodium (Enoxaparin Sodium 40 Mg/0.4 Ml Syringe) 40 mg SUBCUT Q24H [facility] Non-Formulary Medication (Budesonide-Formoterol [Symbicort]) 2 puff INHALE BID [facility] Non-Formulary Medication (Ethambutol) 1,200 mg PO DAILY [facility] Ondansetron HCl (Ondansetron Hcl 4 Mg/2 Ml Vial) 4 mg IVPUSH Q8H PRN PRN Reason: Nausea and Vomiting Pharmacy Consult (Consult Rx Vancomycin Dosing) 1 each MISCELLANE DAILY PRN PRN Reason: Consult order Prednisone (Prednisone 20 Mg Tablet) 40 mg PO DAILY [facility] Sodium Chloride (0.9 % Sodium Chloride Flush 3 Ml Syringe) 3 ml IVFLUSH QSHIFT [facility] Home Medications Medication Instructions Recorded Confirmed Last Taken Type albuterol sulfate 90 mcg/actuation 2 puff inhalation Q4H PRN 07/18/22 07/09/23 Unknown History aerosol inhaler (ProAir HFA) Shortness Of Breath Or Wheezing bictegravir 50 mg-emtricitabine 1 tab PO DAILY 07/18/22 07/09/23 07/09/23 History 200 mg-tenofovir alafenam 25 mg tablet (Biktarvy) atovaquone 750 mg/5 mL oral 750 mg PO BID 07/09/23 07/09/23 07/09/23 History suspension budesonide-formoterol HFA 160 2 puff inhalation BID 07/09/23 07/09/23 07/09/23 History mcg-4.5 mcg/actuation aerosol inhaler (Symbicort) ethambutol 400 mg tablet 1,200 mg PO DAILY 07/09/23 07/09/23 07/09/23 History Physical Exam Vital Signs and Narrative: Vital Signs: Last Vital Signs Temp 99.2 F 07/09/23 07:56 Pulse 94 07/09/23 07:56 Resp 18 07/09/23 07:56 BP 114/63 07/09/23 07:56 Pulse Ox 97 07/09/23 07:56 O2 Del Method Room Air 07/09/23 07:56 BMI result Body Mass Index 28.3 Constitutional - Awake and Alert, No apparent distress Eyes - PERRLA, EOMI Cardiovascular - S1S2, RRR, No edema Respiratory - Normal lung expansion, Normal respiratory effort, No respiratory distress, coarse lung sounds with rhonchi throughout and expiratory wheezing Gastrointestinal - NT / ND; +BS; No rebound or guarding Extremities - no calf tenderness bilaterally, no swelling Skin - Warm/Dry Neurological - Alert & oriented x3 Psychological - Appropriate affect Results Labs 07/09/23 08:37 07/09/23 08:37 Labs: Laboratory Results - last 24 hr 07/09/23 07/09/23 07/09/23 08:37 08:37 08:37 MCV 92.2 MCH 30.2 MCHC 32.8 RDW 17.2 H Plt Count 127 L MPV 12.6 H Immature Gran % (Auto) 0.3 Neut % (Auto) 79.9 H Lymph % (Auto) 11.7 L Crisp % (Auto) 7.8 Eos % (Auto) 0.3 Baso % (Auto) 0.0 Lymph # (Auto) 0.4 L Crisp # (Auto) 0.3 Eos # (Auto) 0.0 Baso # (Auto) 0.0 Abs Immat Gran (auto) 0.01 Absolute Neuts (auto) 2.7 Absolute Nucleated RBC 0.000 Nucleated RBC % (auto) 0.0 PT 10.9 L INR 0.9 D-Dimer High Sensitivty 661 VBG pH VBG pCO2 VBG pO2 VBG HCO3 VBG O2 Saturation VBG Base Excess Anion Gap 12 Estim Creat Clear Calc 111.5 Estimated GFR > 60 Random Glucose 88 Lactic Acid Calcium 9.1 D Magnesium 2.1 Total Bilirubin 0.4 Direct Bilirubin 0.2 AST 45 H ALT 20 Alkaline Phosphatase 116 Lactate Dehydrogenase 268 H Total Protein 7.2 Albumin 3.5 Lipase 38 Procalcitonin 0.09 Urine Color Urine Appearance Urine pH Ur Specific [place] Urine Protein Urine Glucose (UA) Urine Ketones Urine Blood Urine Nitrite Ur Leukocyte Esterase Urine RBC Urine WBC Ur Squamous Epith Cells Urine Bacteria Hyaline Casts Respiratory Panel Marcum Adenovirus (Rapid PCR) B.pert (TEM-PCR) B.parapertussis DNA PCR C. pneumoniae DNA (PCR) Coronavirus OC43 (PCR) Coronavirus HKU1 (PCR) Coronavirus 229E (PCR) Coronavirus NL63 (PCR) Human Metapneumovir PCR Influenza A (RT-PCR) Influenza B (RT-PCR) M. pneumoniae (PCR) Parainfluenza 1 (PCR) Parainfluenza 2 (PCR) Parainfluenza 3 (PCR) Parainfluenza 4 (PCR) RSV (PCR) Entero/Rhino (PCR) SARS-CoV-2 RNA (RT-PCR) 07/09/23 07/09/23 07/09/23 08:37 08:37 08:42 MCV MCH MCHC RDW Plt Count MPV Immature Gran % (Auto) Neut % (Auto) Lymph % (Auto) Crisp % (Auto) Eos % (Auto) Baso % (Auto) Lymph # (Auto) Crisp # (Auto) Eos # (Auto) Baso # (Auto) Abs Immat Gran (auto) Absolute Neuts (auto) Absolute Nucleated RBC Nucleated RBC % (auto) PT INR D-Dimer High Sensitivty VBG pH 7.49 H VBG pCO2 23 VBG pO2 67 VBG HCO3 18 L VBG O2 Saturation 93.0 VBG Base Excess -3.7 Anion Gap Estim Creat Clear Calc Estimated GFR Random Glucose Lactic Acid 0.8 Calcium Magnesium Total Bilirubin Direct Bilirubin AST ALT Alkaline Phosphatase Lactate Dehydrogenase Total Protein Albumin Lipase Procalcitonin Urine Color Urine Appearance Urine pH Ur Specific [place] Urine Protein Urine Glucose (UA) Urine Ketones Urine Blood Urine Nitrite Ur Leukocyte Esterase Urine RBC Urine WBC Ur Squamous Epith Cells Urine Bacteria Hyaline Casts Respiratory Panel Marcum See Note Adenovirus (Rapid PCR) Not Detected B.pert (TEM-PCR) Not Detected B.parapertussis DNA PCR Not Detected C. pneumoniae DNA (PCR) Not Detected Coronavirus OC43 (PCR) Not Detected Coronavirus HKU1 (PCR) Detected A Coronavirus 229E (PCR) Not Detected Coronavirus NL63 (PCR) Not Detected Human Metapneumovir PCR Not Detected Influenza A (RT-PCR) Not Detected Influenza B (RT-PCR) Not Detected M. pneumoniae (PCR) Not Detected Parainfluenza 1 (PCR) Not Detected Parainfluenza 2 (PCR) Not Detected Parainfluenza 3 (PCR) Not Detected Parainfluenza 4 (PCR) Not Detected RSV (PCR) Not Detected Entero/Rhino (PCR) Not Detected SARS-CoV-2 RNA (RT-PCR) Not Detected 07/09/23 09:24 MCV MCH MCHC RDW Plt Count MPV Immature Gran % (Auto) Neut % (Auto) Lymph % (Auto) Crisp % (Auto) Eos % (Auto) Baso % (Auto) Lymph # (Auto) Crisp # (Auto) Eos # (Auto) Baso # (Auto) Abs Immat Gran (auto) Absolute Neuts (auto) Absolute Nucleated RBC Nucleated RBC % (auto) PT INR D-Dimer High Sensitivty VBG pH VBG pCO2 VBG pO2 VBG HCO3 VBG O2 Saturation VBG Base Excess Anion Gap Estim Creat Clear Calc Estimated GFR Random Glucose Lactic Acid Calcium Magnesium Total Bilirubin Direct Bilirubin AST ALT Alkaline Phosphatase Lactate Dehydrogenase Total Protein Albumin Lipase Procalcitonin Urine Color Dark Yellow Urine Appearance Cloudy Urine pH 6.5 Ur Specific [place] >= 1.030 H Urine Protein 300 (3+) H Urine Glucose (UA) Negative Urine Ketones Trace Urine Blood Negative Urine Nitrite Negative Ur Leukocyte Esterase Trace H Urine RBC 0-2 Urine WBC 0-5 Ur Squamous Epith Cells >20 Urine Bacteria 2+ Hyaline Casts 0-2 Respiratory Panel Marcum Adenovirus (Rapid PCR) B.pert (TEM-PCR) B.parapertussis DNA PCR C. pneumoniae DNA (PCR) Coronavirus OC43 (PCR) Coronavirus HKU1 (PCR) Coronavirus 229E (PCR) Coronavirus NL63 (PCR) Human Metapneumovir PCR Influenza A (RT-PCR) Influenza B (RT-PCR) M. pneumoniae (PCR) Parainfluenza 1 (PCR) Parainfluenza 2 (PCR) Parainfluenza 3 (PCR) Parainfluenza 4 (PCR) RSV (PCR) Entero/Rhino (PCR) SARS-CoV-2 RNA (RT-PCR) Imaging Radiologist's Impressions: Impressions Chest X-Ray 07/09/23 09:11 IMPRESSION: Unremarkable chest examination. Chest CTA 07/09/23 10:13 IMPRESSION: 1. No evidence of PE. 2. No evidence aortic dissection or aneurysm. 3. Right lower lobe basilar bronchiectasis with patchy parenchymal opacity suggestive of bronchopneumonia. There is a right perihilar infiltrate and parahilar inflammatory lymph nodes.. 4. 4 mm nodule right upper lobe. Small central cysts surrounding the pedicle opacity right upper lobe question resolving infiltrate. Could these composite findings may represent granulomatous disease such as TB, less likely sarcoid. Correlate with clinical test. VTE: negative. 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 #Acute bronchopeumonia with sepsis in AIDS patient -leukopenia 3.3, mild tachycardia at 95. Afebrile in the ED, but febrile to 103.8 at home. Lactic acid normal, no end-organ damage. No severe sepsis/shock -Positive for coronavirus HKU1 -CTA chest shows right lower lobe basilar bronchiectasis with patchy parenchymal opacity suggestive of bronchopneumonia as well as right perihilar infiltrate and parahilar inflammatory lymph nodes. There is also evidence of resolving infiltrate in the right upper lobe likely representing granulomatous disease s uch as TB -Given immunocompromased status, cover empirically with IV zosyn and vanco -prednisone 40 mg daily x5 days (initiated 07/09) -DuoNebs q.4h while awake -MRSA swab, sputum culture, legionella ag, strep pneumo ag ordered -Histoplasma urine, cryptococcus, mycoplasma pending -infectious disease consult -symptomatic management -Airborne, droplet precautions -Follow CBC, cultures #MAC infection -diagnosed 08/11, appears resolving on CTA chest -Continue atovaquone, ethambutol. Hold azithromycin as patient on Zosyn -infectious disease consult -airborne precautions # HIV with AIDS -last CD4 count 18 with viral load 50 10/11, with MAC infection -Recheck CD4 count and HIV viral load -ID consult -continue Biktarvy # bronchiectasis -continue Symbicort, albuterol p.r.n. -DuoNebs and prednisone as above # cigarette smoker -nicotine patch for NRT -smoking cessation counseling provided DVT prophylaxis-Lovenox Full code Patient requires inpatient stay at least 2 midnights for management of acute bronchopneumonia with sepsis in aids patient requiring IV antibiotics, close observation, expert consultation Time Spent With Patient Time: Total time managing care of this patient today ____ minutes. Quality Stroke Does the patient have a stroke diagnosis?: No VTE Prior VTE?: No VTE Risk Level:: Medical - moderate - high VTE Device Contraindication: Treatment Not Indicated VTE Drug Contraindication: N/A - Med Ordered
[2023-07-09] MEDS: Piperacillin Sodium/Tazobactam 4.5 GM in 0.9 % Sodium Chloride 100 ML IV ×2 (14:11→20:42)
[2023-07-09] MEDS: vancomycin/NS 2,000 MG/500 ML PLAST..BAG 250 MG IV (14:14)
[2023-07-09] MEDS: Enoxaparin Sodium 40 MG/0.4 ML SYRINGE SUBCUT (14:14)
[2023-07-09] MEDS: Fluticasone/Vilanterol 200/25 BLST.W.DEV 1 PUFF INHALE (14:14)
[2023-07-09] MEDS: Nicotine 7 MG PATCH.TD24 TRANSDERMA (14:16)
[2023-07-09] MEDS: Albuterol Sulfate 90 MCG 8 GM INHALER 2 PUFF INHALE ×2 (16:23→20:32)
[2023-07-09 16:27] LABS: MRSA Nasal PCR NEGATIVE (Negative); SA Nasal PCR NEGATIVE (Negative)
--- NOTE | 2023-07-09 17:28 | PHA.PROG ---
Admission Date/Time: July 09, 2023 12:38 Indication: RESP Weight in k.111 kg Adjusted body weight in Kg: [place] body weight in Kg: Obesity Dosing Indication % IBW: Serum Creatinine - Last 168 Hours 07/09/23 08:37 Creatinine 0.75 Estimated CrCl and GFR - Last 168 Hours 07/09/23 08:37 Estim Creat Clear Calc 111.5 Estimated GFR > 60 Vancomycin Loading Dose: 2000 Current Vancomycin Dosing Regimen: 1000 Vancomycin Monitoring using AUC goal of 400 - 600 range with trough as surrogate marker:513 Date and Time for next Vancomycin Level to be drawn: Pharmacist Comments on Vancomycin Plan: Vancomycin dosing will take advantage of [employer] as a clinical decision support tool that uses Bayesian modeling to calculate individual patient's pharmacokinetic parameters and forecast the patient's drug concentration time course with the target goal AUC 24 range of 400 - 600 mg/L/hr.
--- NOTE | 2023-07-09 17:51 | PC.NURSE ---
ao x4 oob to bedside to commode tolerating iv abx and resp treatments. continues to have productive cough, ins/exp wheezing, and body aches. waiting on bed assignment
[2023-07-09 18:24] VITALS: PULSE 76; RESP 22
[2023-07-09 19:13] VITALS: BP 105/66; PULSE 59; RESP 16; TEMP 36.7; O2SAT 100
[2023-07-09 20:32] VITALS: PULSE 59; RESP 16; O2SAT 100
[2023-07-09] MEDS: traMADoL HCL 50 MG TABLET PO (22:42)
--- NOTE | 2023-07-09 22:45 | PC.NURSE ---
This racebook writer assumed care of this Pt at 1900. Pt A&Ox4, sitting on edge of bed eating food brought in by family. Pt reports 10/10 back pain/chest, provider Dr. Morales notified, new order given as documented. Pt using bedside commode independently with steady gait. VSS.
[2023-07-09 23:54] VITALS: RESP 18
[2023-07-10] VITALS (9 sets, daily range): BP systolic 98–133; BP diastolic 62–82; PULSE 44–88; RESP 14–19; TEMP 36.2–37.1; O2SAT 95–100; BMI 26.7
[2023-07-10] MEDS: 0.9 % Sodium Chloride Flush 3 ML SYRINGE IVFLUSH ×3 (01:43→20:39)
[2023-07-10] MEDS: Piperacillin Sodium/Tazobactam 4.5 GM in 0.9 % Sodium Chloride 100 ML IV ×3 (01:44→14:56)
[2023-07-10] MEDS: Acetaminophen 325 MG TABLET 650 MG PO ×2 (01:44→10:54)
[2023-07-10] MEDS: vancomycin HCL 1,000 MG in 0.9 % Sodium Chloride 250 ML 270 MG IV (02:45)
--- NOTE | 2023-07-10 04:27 | PC.NURSE ---
Pt reports discomfort laying on stretcher, bed changed for hospital bed.
--- NOTE | 2023-07-10 04:38 | PC.NURSE ---
Pt HR is ranging between 44 to mid 50's, she is awake and denies any new or different CP. BP at baseline, Dr. Morales notified, no new orders at this time. WCTM.
[2023-07-10 05:16] LABS: Hemoglobin 8.9 g/dl (12.0-16.0); PLT ABN DIST 1; SCAN SMEAR FLAG 1; WBC ABN SCTR 1; WBC ABN SCTR FOR CBC 1
[2023-07-10 05:18] LABS: Hematocrit 28.1 % (37.0-47.0); Imm Gran Abs Auto 0.01 X10*3/uL (0.00-0.03); Imm Gran Pct Auto 0.5 % (0.0-0.4); Lymphocytes Absolute Auto 0.4 X10*3/uL (1.2-4.9); Lymphocytes Percent Auto 16.9 % (20-40); Mean Corpuscular HGB Conc 31.7 g/dl (31.0-35.0); Mean Corpuscular Hemoglobin 29.9 pg (27.0-33.0); Mean Corpuscular Volume 94.3 fL (80.0-98.0); Mean Platelet Volume 13.5 fL (9.4-12.3); Monocytes Absolute Auto 0.3 X10*3/uL (0.1-1.2); Monocytes Percent Auto 14.1 % (2-11); Neutrophils Absolute Auto 1.5 x10*3/uL (2.0-8.3); Neutrophils Percent Auto 68.5 % (45-73); PLT CLUMP 1; Red Blood Count 2.98 X10*6/uL (4.20-5.50); Red Cell Distribution Width 17.4 % (11.0-16.0)
[2023-07-10 05:20] LABS: Platelet Count 118 X10*3/uL (160-400); White Blood Count 2.1 X10*3/uL (4.8-10.8)
[2023-07-10 05:21] LABS: MANUAL DIFF FLAG SCAN
[2023-07-10 05:34] LABS: Anion Gap 11 (12-20); Blood Urea Nitrogen 16 mg/dL (9-16); Calcium 8.8 mg/dL (8.4-10.2); Carbon Dioxide 17 mmol/L (22-29); Chloride 116 mmol/L (96-108); Creatinine Clr Calc Pharmacy 99.6; Estimated Glomerular Filt Rate > 60; Glucose Random 120 mg/dL (60-115); Potassium 3.8 mmol/L (3.3-5.1); Sodium 140 mmol/L (135-145)
[2023-07-10 05:37] LABS: SLIDE REVIEW VERIFIED
[2023-07-10] MEDS: Albuterol Sulfate 90 MCG 8 GM INHALER 2 PUFF INHALE ×4 (08:11→19:35)
[2023-07-10] MEDS: Nicotine 7 MG PATCH.TD24 TRANSDERMA (08:27)
[2023-07-10] MEDS: predniSONE 20 MG TABLET 40 MG PO (08:28)
--- NOTE | 2023-07-10 08:30 | PC.NURSE ---
pt a&ox3. respirations even and unlabored. pt resting comfortably. normal sinus on tele.
--- NOTE | 2023-07-10 08:51 | MHC.CM.PN ---
CM SPOKE WITH PT VIA TELEPHONE. PT LIVES WITH 2 SMALL CHILDREN. INDEPENDENT AT BASELINE. NO PRIOR SERVICES/DME. NO COVID VAX NO HCP, DECLINES TO COMPLETE ONE AT THIS TIME. PCP DR. PEYTON BARNEY AFFILIATED WITH [facility]. - THRIVE ASSESSMENT DP: TO RETURN HOME, NO SERVICES ANTICIPATED. FAMILY WILL TRANSPORT. CM WILL CONTINUE TO FOLLOW FOR ANY CHANGE IN PLAN/DC NEEDS.
--- NOTE | 2023-07-10 09:13 | PC.NURSE ---
report given to [facility] nurse.
--- NOTE | 2023-07-10 09:30 | HE.PHANOTE ---
RE: vanco dosing adjusted trough to 07/11 @1200 from 0000 to better allow pharmacy to monitor dosing
[2023-07-10] MEDS: guaiFENesin 200 MG/10 ML 10 ML LIQUID PO (10:54)
[2023-07-10] MEDS: Atovaquone 750 MG/5 ML ORAL.SUSP PO ×2 (10:54→20:40)
[2023-07-10] MEDS: Morphine Sulfate 4 MG/ML CARTRIDGE IVPUSH ×3 (10:54→20:27)
[2023-07-10] MEDS: Bictegrav/Emtricit/Tenofov Ala TABLET 1 TAB PO (10:55)
[2023-07-10 11:39] LABS: Absolute CD3 Count 273 cells/uL (840-3060); Absolute CD4 Count <20 cells/uL (490-1740); Absolute CD8 Count 243 cells/uL (180-1170); Absolute Lymphocytes 343 cells/uL (850-3900); CD4 CD8 Ratio 0.04 (0.86-5.00); Percent CD3 Cells 79 % (57-85); Percent CD4 Cells 3 % (30-61); Percent CD8 Cells 71 % (12-42)
[2023-07-10] MEDS: Ipratropium Bromide 1 PUFF/17 MCG INHALER 2 PUFF INHALE ×3 (11:52→19:35)
--- NOTE | 2023-07-10 12:26 | MHC.IC ---
A[facility] PRECAUTIONS FOR SUSPICION OF TUBERCULOSIS. Pt also positive for Coronavirus HKU (not COVID 19) which requires contact/droplet precautions.
[2023-07-10] MEDS: Enoxaparin Sodium 40 MG/0.4 ML SYRINGE SUBCUT (14:57)
--- NOTE | 2023-07-10 15:13 | MHC.IC ---
Patient has a common cold Coronavirus HKU (which is not the same as COVID 19). She does not need to be on AIRBORNE precautions
--- NOTE | 2023-07-10 15:56 | P.CNID_ITS ---
History of Present Illness Data of Consult Service Date: 07/10/23 Requesting physician: Parveen Ivory Primary Care Provider: Felicita Melgar MD HPI Reason for consult: chest discomfort,?infection She presents with three days pleuritic chest pain,/10. She also has temperature 104 reported at home. Chest CTA shows no PE but bronchiectasis right base. She reports taking azithromycin and ethambutol for DEANGELO diagnosed 09/15/2022 at [facility] with left hilar mass and necrotizing granuloma. TB interferon test and culture negative from bronchoscopy. Last CD4 count was 10/07 18 and viral load 50. She reports not missing doses of Biktarvy and has been getting through mail- order renewal . She is to see Dr Carol Ramirez at [facility] next month. She also takes Atovaquone for PJP. She has no oxygen requirements and feels better. 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 Family History Family history: reviewed and not pertinent Surgical History Surgical History History of appendectomy Tubal ligation status Social History Social History Household Members: Children Housing: Apartment Do you presently have visiting nurse or other home services: No Alcohol intake: never Patient Tobacco Use Status: Current everyday Tobacco user Tobacco use type: Cigarette Smoked in Last 30 Days: Yes Patient Interested in Nicotine Replacement: Yes Use of substances other than those prescribed or required for medical reasons: Yes Substance Use Type: Marijuana Substance Use Frequency: Daily Have you been hit, kicked, punched, or otherwise hurt by someone within the past year? If so, by whom?: No Do you feel safe in your current relationship?: No Current Relationship Is there a partner from a previous relationship who is making you feel unsafe now?: No Are you made to feel afraid or neglected: No Advance Directives: No Advance Directives Information Provided: No Do you have thoughts of harming others: None Do you have a plan to hurt others: No Plan Recently lost weight without trying: No Nutrition Risks: No Nutritional Risk Patient : No : No Poor oral hygiene: No service: No Meds Allergies Allergy/AdvReac Type Severity Reaction Status Date / Time sulfamethoxazole Allergy Severe SWELLING Verified 07/18/22 09:02 [From BACTRIM] trimethoprim [From BACTRIM] Allergy Severe SWELLING Verified 07/18/22 09:02 Sulfa (Sulfonamide Allergy Unknown Unknown Verified 07/18/22 09:02 Antibiotics) Active Medications: Current Medications Acetaminophen (Acetaminophen 325 Mg Tablet) 650 mg PO Q6H PRN PRN Reason: Pain, Mild (Pain Scale 1-3) Last Admin: 07/10/23 10:54 Dose: 650 mg Albuterol Sulfate (Albuterol Sulfate 90 Mcg 8 Gm Inhaler) 2 puff INHALE RQ4H [facility] Last Admin: 07/10/23 15:50 Dose: 2 puff Atovaquone (Atovaquone 750 Mg/5 Ml Oral.Susp) 750 mg PO BID [facility] Last Admin: 07/10/23 10:54 Dose: 750 mg Bictegravir/Emtricitabine/Tenofovir (Bictegrav/Emtricit/Tenofov Ala Tablet) 1 tab PO DAILY [facility] Last Admin: 07/10/23 10:55 Dose: 1 tab Docusate Sodium (Docusate Sodium 100 Mg Capsule) 100 mg PO DAILY PRN PRN Reason: Constipation Enoxaparin Sodium (Enoxaparin Sodium 40 Mg/0.4 Ml Syringe) 40 mg SUBCUT Q24H [facility] Last Admin: 07/10/23 14:57 Dose: 40 mg Fluticasone/Vilanterol (Fluticasone/Vilanterol 200/25 Blst.W.Dev) 1 puff INHALE RDAILY [facility] Last Admin: 07/09/23 14:14 Dose: 1 puff Guaifenesin (Guaifenesin 200 Mg/10 Ml 10 Ml Liquid) 10 ml PO Q6H PRN PRN Reason: Cough Last Admin: 07/10/23 10:54 Dose: 10 ml Piperacillin Sod/Tazobactam (Sod 4.5 gm/ Sodium Chloride) 100 mls @ 200 mls/hr IV Q6H [facility] Last Admin: 07/10/23 14:56 Dose: 200 mls/hr Vancomycin HCl 1,000 mg/ (Sodium Chloride) 270 mls @ 270 mls/hr IV Q12H [facility] Last Infusion: 07/10/23 03:45 Dose: Infused Ipratropium Caret (Ipratropium Caret 1 Puff/17 Mcg Inhaler) 2 puff INHALE RQ4H WHILE AWAKE [facility] Last Admin: 07/10/23 15:50 Dose: 2 puff Morphine Sulfate (Morphine Sulfate 4 Mg/Ml Cartridge) 4 mg IVPUSH Q4H PRN; Protocol PRN Reason: Pain, Moderate(Pain Scale 4-6) Last Admin: 07/10/23 14:57 Dose: 4 mg Nicotine (Nicotine 7 Mg Patch.Td24) 7 mg TRANSDERMA DAILY [facility] Last Admin: 07/10/23 08:27 Dose: 7 mg Pat Own Med ( Ethambutol 400 Mg Tablet) 1,200 mg PO DAILY [facility] Last Admin: 07/10/23 12:16 Dose: 1,200 mg Ondansetron HCl (Ondansetron Hcl 4 Mg/2 Ml Vial) 4 mg IVPUSH Q8H PRN PRN Reason: Nausea and Vomiting Pharmacy Consult (Consult Rx Vancomycin Dosing) 1 each MISCELLANE DAILY PRN PRN Reason: Consult order Prednisone (Prednisone 20 Mg Tablet) 40 mg PO DAILY [facility] Last Admin: 07/10/23 08:28 Dose: 40 mg Sodium Chloride (0.9 % Sodium Chloride Flush 3 Ml Syringe) 3 ml IVFLUSH QSHIFT [facility] Last Admin: 07/10/23 08:13 Dose: 3 ml Home Medications Medication Instructions Recorded Confirmed Last Taken Type albuterol sulfate 90 mcg/actuation 2 puff inhalation Q4H PRN 07/18/22 07/09/23 Unknown History aerosol inhaler (ProAir HFA) Shortness Of Breath Or Wheezing bictegravir 50 mg-emtricitabine 1 tab PO DAILY 07/18/22 07/09/23 07/09/23 History 200 mg-tenofovir alafenam 25 mg tablet (Biktarvy) atovaquone 750 mg/5 mL oral 750 mg PO BID 07/09/23 07/09/23 07/09/23 History suspension budesonide-formoterol HFA 160 2 puff inhalation BID 07/09/23 07/09/23 07/09/23 History mcg-4.5 mcg/actuation aerosol inhaler (Symbicort) ethambutol 400 mg tablet 1,200 mg PO DAILY 07/09/23 07/09/23 07/09/23 History Physical Exam Vital Signs: Vital Signs: Last Vital Signs Temp 97.5 F 07/10/23 15:47 Pulse 88 07/10/23 15:47 Resp 14 07/10/23 15:47 BP 119/81 07/10/23 15:47 Pulse Ox 99 07/10/23 15:47 O2 Del Method Room Air 07/10/23 15:47 BMI result Body Mass Index 26.7 Const: General: cooperative HEENT: Head: Yes normal to inspection Face and sinus: Yes normal facial exam Mouth: Normal oral and palatal mucosa present Teeth and gingiva: dentition normal Eyes: General: appearance normal, both eyes and all related structures Pupils: Equal, round and reactive pupils present Resp: Effort & Inspection: normal respiratory effort Cardio: Rate: regular rate Rhythm: regular rhythm GI: Palpation (GI): Soft to palpation and nontender : General: Yes no CVA tenderness Back/Spine/Pelvis: Back: no CVA tenderness Skin: General skin exam: no rashes or lesions noted Neuro: General: moves all extremities Cranial nerves: Yes Equal, round and reactive pupils present Extrem: General: Yes normal to inspection Psych: Appearance: grossly normal Results Labs 07/10/23 05:02 07/10/23 05:02 Labs: Short CBC 07/10/23 Range/Units 05:02 WBC 2.1 L (4.8-10.8) X10*3/uL Hgb 8.9 L (12.0-16.0) g/dl Hct 28.1 L (37.0-47.0) % Plt Count 118 L (160-400) X10*3/uL BMP 07/10/23 05:02 Sodium 140 Potassium 3.8 Chloride 116 H Carbon Dioxide 17 L BUN 16 Creatinine 0.84 Calcium 8.8 Microbiology Microbiology Results: Microbiology 07/09/23 08:37 Blood - Venous Blood Culture - Preliminary No growth after 24 hours. 07/09/23 08:37 Blood - Venous Blood Culture - Preliminary No growth after 24 hours. Assessment and Plan (1) AIDS: Status: Acute She has AIDS with no care visits at [facility] since 09/2022. She has had negative tuberculosis tests and bronchoscopy and has had bulky lymphadenopathy for some time. She is treated for MAC and had some reaction to meds with rifabutin causing joint pain; She says she takes Biktarvy. There is no definite lobar pneumonia and no hypoxia, fever or productive sputum so common cold coronavirus is most likely. (2) Bronchopneumonia: Status: Acute (3) Bronchiectasis: Status: Acute (4) Acute febrile illness: Status: Acute (5) Coronavirus infection: Status: Acute Plan Droplet precautions only as no COVID and dont think has TB. Stop IV Zosyn and Vancomycin with XR picture and procalcitonin of .09 dont think has bacterial pneumonia. Check HIV viral load evaluate if taking medication. No repeat bronch unless worsens. Continue Biktarvy. Po Doxycycline possible bronchiectasis for 7 days or more. Continue Zmax and ethambutol for now. Follow [facility] crys. Time Spent With Patient Time: Total time managing care of this patient today ____ minutes.
--- NOTE | 2023-07-10 16:28 | P.PNIM_ITS ---
Subjective Subjective Date of Service: 07/10/23 Interval History: No acute issues; states chest pain and cough somewhat improved Review of Systems Admits to mild substernal chest pain worse with cough Denies nausea vomiting diarrhea Admits to mild exertional shortness of breath at his baseline Denies fever chills Physical Exam Vital Signs: Vital Signs: Last Vital Signs Temp 97.5 F 07/10/23 15:47 Pulse 88 07/10/23 15:47 Resp 14 07/10/23 15:47 BP 119/81 07/10/23 15:47 Pulse Ox 99 07/10/23 15:47 O2 Del Method Room Air 07/10/23 15:47 BMI result Body Mass Index 26.7 Const: Other: Awake alert oriented x3 no acute distress Resp: Other: Diminished right base with scattered expiratory wheezes Cardio: Other: No S4; positive S1-S2; no S3 murmurs rubs or gallops GI: Other: Soft nontender nondistended normoactive bowel sounds Extrem: Other: No edema bilaterally Objective Data Active Medications Acetaminophen (Acetaminophen 325 Mg Tablet) 650 mg PO Q6H PRN PRN Reason: Pain, Mild (Pain Scale 1-3) Last Admin: 07/10/23 10:54 Dose: 650 mg Documented By: MICHAEL Albuterol Sulfate (Albuterol Sulfate 90 Mcg 8 Gm Inhaler) 2 puff INHALE RQ4H [facility] Last Admin: 07/10/23 15:50 Dose: 2 puff Documented By: TITO Atovaquone (Atovaquone 750 Mg/5 Ml Oral.Susp) 750 mg PO BID [facility] Last Admin: 07/10/23 10:54 Dose: 750 mg Documented By: MICHAEL Bictegravir/Emtricitabine/Tenofovir (Bictegrav/Emtricit/Tenofov Ala Tablet) 1 tab PO DAILY [facility] Last Admin: 07/10/23 10:55 Dose: 1 tab Documented By: MICHAEL Docusate Sodium (Docusate Sodium 100 Mg Capsule) 100 mg PO DAILY PRN PRN Reason: Constipation Enoxaparin Sodium (Enoxaparin Sodium 40 Mg/0.4 Ml Syringe) 40 mg SUBCUT Q24H [facility] Last Admin: 07/10/23 14:57 Dose: 40 mg Documented By: MICHAEL Fluticasone/Vilanterol (Fluticasone/Vilanterol 200/25 Blst.W.Dev) 1 puff INHALE RDAILY [facility] Last Admin: 07/09/23 14:14 Dose: 1 puff Documented By: ADITYA Guaifenesin (Guaifenesin 200 Mg/10 Ml 10 Ml Liquid) 10 ml PO Q6H PRN PRN Reason: Cough Last Admin: 07/10/23 10:54 Dose: 10 ml Documented By: MICHAEL Ipratropium [place] (Ipratropium [place] 1 Puff/17 Mcg Inhaler) 2 puff INHALE RQ4H WHILE AWAKE [facility] Last Admin: 07/10/23 15:50 Dose: 2 puff Documented By: TITO Morphine Sulfate (Morphine Sulfate 4 Mg/Ml Cartridge) 4 mg IVPUSH Q4H PRN; Protocol PRN Reason: Pain, Moderate(Pain Scale 4-6) Last Admin: 07/10/23 14:57 Dose: 4 mg Documented By: MICHAEL Nicotine (Nicotine 7 Mg Patch.Td24) 7 mg TRANSDERMA DAILY [facility] Last Admin: 07/10/23 08:27 Dose: 7 mg Documented By: AIMEE Pat Own Med ( Ethambutol 400 Mg Tablet) 1,200 mg PO DAILY [facility] Last Admin: 07/10/23 12:16 Dose: 1,200 mg Documented By: MICHAEL Ondansetron HCl (Ondansetron Hcl 4 Mg/2 Ml Vial) 4 mg IVPUSH Q8H PRN PRN Reason: Nausea and Vomiting Prednisone (Prednisone 20 Mg Tablet) 40 mg PO DAILY [facility] Last Admin: 07/10/23 08:28 Dose: 40 mg Documented By: AIMEE Sodium Chloride (0.9 % Sodium Chloride Flush 3 Ml Syringe) 3 ml IVFLUSH QSHIFT [facility] Last Admin: 07/10/23 16:12 Dose: Not Given Documented By: MICHAEL Non-Admin Reason: IV Running Labs 07/10/23 05:02 07/10/23 05:02 Labs: Laboratory Results - last 24 hr 07/09/23 07/09/23 07/10/23 14:41 14:42 05:02 MCV 94.3 MCH 29.9 MCHC 31.7 RDW 17.4 H Plt Count 118 L MPV 13.5 H Immature Gran % (Auto) 0.5 H Neut % (Auto) 68.5 Lymph % (Auto) 16.9 L Jenkins % (Auto) 14.1 H Eos % (Auto) 0.0 Baso % (Auto) 0.0 Lymph # (Auto) 0.4 L Jenkins # (Auto) 0.3 Eos # (Auto) 0.0 Baso # (Auto) 0.0 Abs Immat Gran (auto) 0.01 Absolute Neuts (auto) 1.5 L Absolute Nucleated RBC 0.000 Nucleated RBC % (auto) 0.0 Smear Tech's Comments VERIFIED Anion Gap Estim Creat Clear Calc Estimated GFR Random Glucose Calcium Total Lymphocytes 343 L % CD3 Cells 79 Absolute CD3 Count 273 L % CD4 Cells 3 L Absolute CD4 Count <20 L CD4/CD8 Ratio 0.04 L % CD8 Cells 71 H Absolute CD8 Count 243 Cryptococcal Ag SEE NOTE 07/10/23 05:02 MCV MCH MCHC RDW Plt Count MPV Immature Gran % (Auto) Neut % (Auto) Lymph % (Auto) Jenkins % (Auto) Eos % (Auto) Baso % (Auto) Lymph # (Auto) Jenkins # (Auto) Eos # (Auto) Baso # (Auto) Abs Immat Gran (auto) Absolute Neuts (auto) Absolute Nucleated RBC Nucleated RBC % (auto) Smear Tech's Comments Anion Gap 11 L Estim Creat Clear Calc 99.6 Estimated GFR > 60 Random Glucose 120 H Calcium 8.8 Total Lymphocytes % CD3 Cells Absolute CD3 Count % CD4 Cells Absolute CD4 Count CD4/CD8 Ratio % CD8 Cells Absolute CD8 Count Cryptococcal Ag Microbiology Microbiology Results: Microbiology 07/09/23 08:37 Blood Culture - Preliminary Blood - Venous No growth after 24 hours. 07/09/23 08:37 Blood Culture - Preliminary Blood - Venous No growth after 24 hours. Assessment and Plan (1) Bronchopneumonia: Status: Acute (2) Pulmonary Mycobacterium avium complex (MAC) infection: Status: Acute (3) HIV (human immunodeficiency virus infection): Status: Acute Plan 32-year-old female with history of HIV/aids, pulmonary infection due to mycobacterium avium complex currently on treatment with atovaquone azithromycin and ethambutol, mediastinal adenopathy, and bronchiectasis who is a current everyday marijuana and 6-7 cigarette per day smoker admitted for further management of bronchopneumonia with sepsis in AIDS patient. 1.Acute bronchopeumonia with sepsis in AIDS patient -appreciate ID consult. Discussed with Radiology. Both id/radiology agree this is not active TB. Acute bronchopneumonia -prednisone 40 mg daily x5 days (initiated 07/09) -given doxycycline allergy will treat with Ceftin 500 b.i.d. for 7 days -will DC vancomycin and Zosyn as per ID 2.MAC infection -diagnosed 08/11, appears resolving on CTA chest -Continue atovaquone, ethambutol... Restart azithromycin -droplet precautions only 3.HIV with AIDS -labs pending -continue Biktarvy Lovenox Full code Requires ongoing hospitalization to monitor response to therapies in backdrop of HIV Time Spent With Patient Time: Total time managing care of this patient today ____ minutes. Quality Stroke Does the patient have a stroke diagnosis?: No VTE Prior VTE?: No VTE Risk Level:: Medical - moderate - high VTE Device Contraindication: Treatment Not Indicated VTE Drug Contraindication: N/A - Med Ordered
--- NOTE | 2023-07-10 19:46 | PC.NURSE ---
Pt arrived to unit in bed oriented to room, call campos system and staff. Precautions in place changed to droplet in afternoon. Neurologically intact. OOB independent steady gait. LS rhonchi bases with exp wheezes upper airway, c/o pain midsternal around left ribs to back 07/30 Dr Ivory notified IV morphine ordered and given with good effect. Tylenol and cough syrup given per order. Home med verified with pharmacy and given this am. IV antibiotics dc'd this afternoon. Tolerating diet. Will continue to monitor and report changes
[2023-07-10] MEDS: ondansetron HCL 4 MG/2 ML VIAL IVPUSH (20:28)
[2023-07-11] MEDS: Morphine Sulfate 4 MG/ML CARTRIDGE IVPUSH ×3 (02:21→13:31)
[2023-07-11 03:34] VITALS: BP 104/63; PULSE 48; RESP 18; TEMP 36.3; O2SAT 99
[2023-07-11 07:26] LABS: Creatinine Clr Calc Pharmacy 123.3; Estimated Glomerular Filt Rate > 60
[2023-07-11 07:53] VITALS: BP 110/64; PULSE 54; RESP 16; TEMP 36.4; O2SAT 97
[2023-07-11] MEDS: Fluticasone/Vilanterol 200/25 BLST.W.DEV 1 PUFF INHALE (08:35)
[2023-07-11] MEDS: Ipratropium Bromide 1 PUFF/17 MCG INHALER 2 PUFF INHALE ×2 (08:35→11:26)
[2023-07-11] MEDS: Albuterol Sulfate 90 MCG 8 GM INHALER 2 PUFF INHALE ×2 (08:36→11:26)
[2023-07-11 08:39] VITALS: PULSE 54; RESP 16; O2SAT 98
[2023-07-11] MEDS: Atovaquone 750 MG/5 ML ORAL.SUSP PO (09:19)
[2023-07-11] MEDS: predniSONE 20 MG TABLET 40 MG PO (09:19)
[2023-07-11] MEDS: Bictegrav/Emtricit/Tenofov Ala TABLET 1 TAB PO (09:20)
[2023-07-11] MEDS: Nicotine 7 MG PATCH.TD24 TRANSDERMA (09:21)
[2023-07-11] MEDS: ondansetron HCL 4 MG/2 ML VIAL IVPUSH (09:31)
[2023-07-11] MEDS: 0.9 % Sodium Chloride Flush 3 ML SYRINGE IVFLUSH (09:35)
--- NOTE | 2023-07-11 11:17 | MHC.CM.PN ---
PER HOSPITALIST PT TO BE MEDICALLY CLEARED FOR D/C HOME NO SERVICES W/PT ARRANGING TRANSPORT
[2023-07-11 11:30] VITALS: PULSE 60; RESP 14; O2SAT 98
[2023-07-11 11:35] VITALS: BP 110/74; PULSE 80; RESP 16; TEMP 36.3; O2SAT 98
[2023-07-11 12:44] LABS: Vancomycin Random < 2.0 mcg/mL (15-20)
--- NOTE | 2023-07-11 14:22 | PM.DS ---
DS: Providers Provider Date of Service: 07/11/23 Date of admission: 07/09/23 12:38 Date of discharge: 07/11/23 Primary care physician: Felicita Melgar MD Consults: 07/09/23 12:34 Consult to Infectious Diseases Routine Consulting Provider: [facility] [place] [facility] Infectious Disease Reason for consultation: bronchopneumonia, covid, MAC, AIDs patient DS: Diagnosis Discharge Diagnosis (1) Bronchopneumonia: Status: Acute (2) Pulmonary Mycobacterium avium complex (MAC) infection: Status: Acute (3) HIV (human immunodeficiency virus infection): Status: Acute DS: Summary Hospital Course Hospital Course: 32-year-old female with history of HIV/aids, 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 who is a current everyday marijuana and 6-7 cigarette per day smoker presented to the ED earlier today for evaluation of upper respiratory symptoms ongoing for 4 days.? She states she has had fevers up to 103.8 as well as occasionally productive cough, shortness of breath and wheezing, and left-sided pleuritic chest pain.? She denies any known sick contacts.? Denies any sore throat, sinus pressure, rhinorrhea, abdominal pain, nausea, vomiting, diarrhea, lightheadedness, headache, or retrosternal chest pressure.? She is not vaccinated against COVID-19.? She is currently being treated for MAC initially diagnosed in 07/2022 and reports compliance with atovaquone, azithromycin, and ethambutol. She follows with Dr. Melgar in ID at [facility]. Reviewed [facility] records, was last seen in 11/10 with CD4 count 18, HIV RNA viral load 50. She does report compliance with all medications including Bitarvy. On arrival, patient afebrile, temperature 99.2 degrees, mildly tachycardic to 94, vitals otherwise stable.? No hypoxia.? There is a mild leukopenia 3.3 and stable normocytic anemia with H/H 9.7/29.6%.? VBG pH 7.49, pCO2 23, bicarb 18.? Renal function normal, electrolyte levels normal except for CO2 of 17.? LDH 268.? Troponin undetectable.? Procalcitonin 0.09.? Urinalysis unremarkable.? Respiratory viral panel positive for coronavirus [facility] 1, negative for COVID-19, influenza, RSV.? CXR unremarkable.? D-dimer elevated at 661.? Chest CTA ordered and negative for PE, aortic dissection or aneurysm.? There is right lower lobe basilar bronchiectasis with patchy parenchymal opacities suggestive bronchopneumonia as well as right perihilar infiltrate in perihilar inflammatory lymph nodes.? There is a small 4 mm nodule in the right upper lobe as well as small central cyst surrounding the pedicle opacity right upper lobe with question of resolving infiltrate possibly representing granulomatous disease such as TB less likely sarcoid.? In the ED, treated with IV cefepime, 4 mg morphine, 1 L IVF, ondansetron, 750 mg atovaquone, albuterol nebulizer, and 40 mg prednisone. Hospital Course Admitted to telemetry and treated with broad-spectrum antibiotics including vanco and Zosyn to cover empirically for immunocompromised status. 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 Seen in consultation by [place] who [place] [facility] [place]; felt to be an exacerbation of bronchiectasis and all antibiotics were DC id (IV) and she was started on p.o. Ceftin as she has an allergy to doxycycline. At this point time she is markedly improved and her breathing is at baseline. She has follow-up on August 15 with [facility] ID and is wishing discharge. At this point she is medically acceptable for same Time Spent with Patient Time attestation: Total time managing care of this patient today ____ minutes. Discharge coordination time: Greater than 30 minutes Quality: Safe Use of Opioids Does Pt have an Active Cancer Diagnosis on the Problem List?: No Quality: Stroke Does the patient have a stroke diagnosis?: No Physical Exam Vital Signs: Vital Signs: Last Vital Signs Temp 97.4 F 07/11/23 11:35 Pulse 80 07/11/23 11:35 Resp 16 07/11/23 11:35 BP 110/74 07/11/23 11:35 Pulse Ox 98 07/11/23 11:35 O2 Del Method Room Air 07/11/23 11:35 BMI result Body Mass Index 26.7 Const: Other: Awake alert oriented x3 no acute distress Resp: Other: Diminished right base with scattered expiratory wheezes Cardio: Other: No S4; positive S1-S2; no S3 murmurs rubs or gallops GI: Other: Soft nontender nondistended normoactive bowel sounds Extrem: Other: No edema bilaterally DS: Data Data Completed and Pending Labs on day of discharge: Laboratory Results - last 24 hr 07/09/23 07/11/23 07/11/23 14:41 06:45 12:21 Creatinine 0.66 Estim Creat Clear Calc 123.3 Estimated GFR > 60 Random Vancomycin < 2.0 L Lymphocyte Subset Cmmnt TNP Preliminary micro results at discharge 07/09/23 08:37 Blood Culture - Preliminary Blood - Venous No growth after 48 hours. 07/09/23 08:37 Blood Culture - Preliminary Blood - Venous No growth after 48 hours. Discharge Plan Discharge Anticipated Discharge Date/Time: 07/11/23 14:18 Patient Disposition: Home, Self-Care Discharge Diagnosis: Bronchopneumonia Referrals: Felicita Melgar MD [Primary Care Provider] - 1 Week Discharge Medications: New prednisone 20 mg Tablet 40 mg PO DAILY Qty: 10 0RF cefuroxime axetil 500 mg Tablet 500 mg PO BID Qty: 14 0RF nicotine [Nicoderm CQ] 14 mg/24 hr patch 24 hour 1 patch transdermal Q24H Qty: 28 0RF Continued albuterol sulfate [ProAir HFA] 90 mcg/actuation HFA aerosol inhaler 2 puff inhalation Q4H PRN (Reason: Shortness Of Breath Or Wheezing) Biktarvy 50-200-25 mg tablet 1 tab PO DAILY azithromycin 500 mg tablet 500 mg PO DAILY 7 Days Qty: 7 0RF ethambutol 400 mg tablet 1,200 mg PO DAILY atovaquone 750 mg/5 mL suspension 750 mg PO BID budesonide-formoterol [Symbicort] 160-4.5 mcg/actuation HFA aerosol inhaler 2 puff inhalation BID Discharge Orders: Discharge Order (Routine); Ordered 07/11/23 Ordered By: Parveen Ivory Diet: Advance to usual diet Activity on Discharge: As tolerated Stand Alone Forms: Patient Portal Discharge page Care Plan Goals: Complete course of Ceftin as ordered as well as prednisone Health Concerns: Follow-up with [facility] Infectious Disease as scheduled Plan of Treatment: Restart all pre-hospital medications Assessment: See discharge summary
[2023-07-11 15:28] LABS: HIV RNA PCR Qn Copies 548000 copies/mL (NOT DETECTED); HIV RNA PCR Qn Log Copies 5.74 (NOT DETECTED)
[2023-07-14 05:04] LABS: Strep Pneumo Ag urine Not Detected (Not Detected)
[2023-07-14 13:09] LABS: Legionella Ag Urine Not Detected (Not Detected)
[2023-07-15 02:39] LABS: Histoplasma Galactomann Ag Ur <0.2 ng/mL
[2023-07-17 16:53] LABS: Mycoplasma Pneumoniae - IgG 4.85 (<=0.90); Mycoplasma Pneumoniae - IgM 776 U/mL (<770)
== END 2023-07-11 15:45 | disposition home or self-care (01) | DRG 892 ==
LOC: HO.ED 10:49 → HO.EDOVER 13:39 → HO.IMC 07-10 07:44
PROVIDERS: Admitting Provider Physician Assistant; Emergency Provider Emergency Medicine; PCP Internal Medicine; Visit Provider Hospitalist
DX: A31.0 Pulmonary mycobacterial infection (principal); B20 Human immunodeficiency virus [HIV] disease; J18.9 Pneumonia, unspecified organism; J47.0 Bronchiectasis with acute lower respiratory infection; B97.29 Other coronavirus as the cause of diseases classified elsewhere; F17.210 Nicotine dependence, cigarettes, uncomplicated; Z71.6 Tobacco abuse counseling; Z28.310 Unvaccinated for COVID-19; Z79.899 Other long term (current) drug therapy
CPT/HCPCS: 36415; 71045; 71275; 80048; 80076; 80202; 81001; 82565; 82803; 83605; 83615; 83690; 83735; 84145; 84484; 85025; 85379; 85610; 86359; 86360; 86403; 86481; 86738; 87040; 87385; 87449; 87536; 87633; 87640; 87641; 87899; 93005; 94640; 94664; 99285; J0692; J1650; J2270; J2405; J2543; J3370; Q9967

== ENCOUNTER → 2023-07-09 12:38 | Outpatient (BNV) | payer OTHER, SELFPAY | PROVIDERS: Admitting Provider Physician Assistant; Emergency Provider Emergency Medicine; PCP Internal Medicine; Visit Provider Hospitalist | DX: J18.0 Bronchopneumonia, unspecified organism (principal); A31.0 Pulmonary mycobacterial infection; B20 Human immunodeficiency virus [HIV] disease | CPT/HCPCS: 99223; 99233; 99239 ==

== ENCOUNTER → 2023-07-09 12:38 | Outpatient (BNV) | payer OTHER, SELFPAY | PROVIDERS: Admitting Provider Physician Assistant; Emergency Provider Emergency Medicine; PCP Internal Medicine; Visit Provider Internal Medicine | DX: B20 Human immunodeficiency virus [HIV] disease (principal); J18.0 Bronchopneumonia, unspecified organism; J47.9 Bronchiectasis, uncomplicated; R50.9 Fever, unspecified; B34.2 Coronavirus infection, unspecified | CPT/HCPCS: 99222 ==

== ENCOUNTER 2023-07-14 12:40 | Emergency (ER) | payer OTHER, SELFPAY | END 2023-07-14 16:06 | disposition left against medical advice (07) | LOC: HO.ED 15:53 | PROVIDERS: Emergency Provider Emergency Medicine; PCP Internal Medicine | DX: R06.02 Shortness of breath (principal); R05.9 Cough, unspecified ==

== ENCOUNTER 2023-07-14 18:00 | Inpatient (IN) | payer OTHER, SELFPAY ==
[2023-07-14] VITALS (8 sets, daily range): BP systolic 78–121; BP diastolic 30–64; PULSE 88–116; RESP 18–28; TEMP 37.2–39.2; O2SAT 93–99; BMI 21.0
--- NOTE | ~2023-07-14 | XR_ITS ---
EXAMINATION: XR CHEST CLINICAL INFORMATION: Post bronchoscopy and biopsy COMPARISON: Previous chest x-ray and chest CT July 14 and 07/15/2023 TECHNIQUE: Frontal view of the chest was obtained. FINDINGS: The cardiac and mediastinal contours are stable. Increased right infrahilar opacity appears unchanged. Left midlung subsegmental atelectasis. No pleural effusion or pneumothorax. Bony structures are normal. XR/XR chest 1V IMPRESSION: Stable right perihilar opacity from recent exams.
--- NOTE | ~2023-07-14 | XR_ITS ---
EXAMINATION: XR CHEST CLINICAL INFORMATION: Shortness of breath. COMPARISON: 07/09/2023 TECHNIQUE: 2 views of the chest were obtained. FINDINGS: The cardiomediastinal silhouette is normal. There is no focal lung consolidation or pleural effusion. The bony structures and soft tissues are unremarkable. XR/XR chest 2V IMPRESSION: No active cardiopulmonary disease.
--- NOTE | ~2023-07-14 | CT_ITS ---
EXAMINATION: CT CHEST WITHOUT CONTRAST CLINICAL INFORMATION: Shortness of breath COMPARISON: Prior CT 07/09/2023 TECHNIQUE: Multidetector volumetric CT imaging of the chest was done. Axial MIP volume rendering provided. Sagittal and coronal reformatted images were obtained. This CT examination was performed using dose optimization techniques as appropriate, variously including the following: *Automated exposure control *Adjustment of mA and/or kV according to patient size (this includes techniques or standardized protocols for targeted exams where dose is matched to indication/reason for exam; i.e. extremities or head) *Use of iterative reconstruction technique DLP: 286 mGy-cm FINDINGS: BEATER ENGINEER: No unremarkable LUNGS: Nodule right upper lobe 5 mm image [id number] unchanged. Right parahilar opacity with surrounding groundglass infiltrates has enlarged now measure up to 2 x 2.6 cm image 126 series 7, the rapid increase in size favor infection process consolidation. There are mild patchy infiltrates/atelectasis at middle lobe, right and left lower lobe and lingula base, also has worsened. MEDIASTINUM: There is mediastinal lymphadenopathy pretracheal, aortopulmonary window, subcarinal, right and left hilar. CORONARY ARTERY CALCIFICATION: None visualized on this study. PLEURA: There is no pleural effusion. No pleural mass or thickening. AXILLA: No lymphadenopathy. UPPER ABDOMEN: Unremarkable. OSSEOUS STRUCTURES: Unremarkable. CT/CT chest wo IV con IMPRESSION: - There has been rapid increase in the size of the right parahilar opacity with surrounding groundglass infiltrates now measure up to 2.6 cm, the rapid increase in size favors infection process. Clinical correlation and Attention to follow-up short-term CT scan in 3 months advised. - There are patchy infiltrates/atelectasis at middle lobe, right and left lower lobe and lingula base, also has worsened. - More prominent mediastinal and hilar lymphadenopathy. - Stable 5 mm nodule right upper lobe. Fleischner guidelines were followed.
--- NOTE | ~2023-07-14 | FL_ITS ---
EXAMINATION: XR FL GUIDANCE IN OR WITH IMAGES CLINICAL INFORMATION: Right-sided bronchoscopy. COMPARISON: None available. TECHNIQUE: Fluoroscopy Supervised By: Dr. Noonan TIME: 32.3 seconds. IMAGES: 2 images. TOTAL DOSE: 9.28 mGy DAP: No dap available on this machine, right side bronchoscopy, patient supine. FINDINGS: Fluoroscopic images demonstrate bronchoscope projecting over the right distal main bronchus and smaller instrument projecting over the right inferior hilar region. FL/FL guidance in OR IMPRESSION: Fluoroscopy guidance for right-sided bronchoscopy and transbronchial biopsy.
--- NOTE | 2023-07-14 18:19 | ECG_ITS ---
Test Reason : SOB Blood Pressure : / mmHG Vent. Rate : 101 BPM Atrial Rate : 101 BPM P-R Int : 142 ms QRS Dur : 070 ms QT Int : 316 ms P-R-T Axes : 035 050 045 degrees QTc Int : 409 ms Sinus tachycardia Otherwise normal ECG When compared with ECG of 09-JUL-2023 08:53, Heart rate has increased Referred By: Columba Bocanegra Electronically Signed By:PRIYA FAIRCIHLD
[2023-07-14] MEDS: Acetaminophen 325 MG TABLET 975 MG PO (18:40)
[2023-07-14] MEDS: 0.9 % Sodium Chloride 1,000 ML 999 ML IV ×2 (18:40→21:39)
--- NOTE | 2023-07-14 18:44 | ED.SOB ---
HPI - SOB/Dyspnea General Chief Complaint: Dyspnea Stated Complaint: SOB, feeling sick [id number] Time Seen by Provider: 07/14/23 18:19 Source: patient and EMS Mode of arrival: EMS Limitations: no limitations History of Present Illness HPI Narrative: 32-year-old female with history of HIV/aids, pulmonary infection d/t Mycobacterium avium currently on treatment with atovaquone, azithromycin, ethambutol presents to the ER with complaints of shortness of breath, fevers and chills. Patient reports that she was admitted July 09 through July 11 for pneumonia and was discharged on the on prednisone, cefuroxome Per EMS patient's initial blood pressure was 70/30 and she received 500 mL of fluids before arrival Related Data Home Medications Medication Instructions Recorded Confirmed albuterol sulfate 90 mcg/actuation 2 puff inhalation Q4H PRN 07/18/22 07/14/23 aerosol inhaler (ProAir HFA) Shortness Of Breath Or Wheezing bictegravir 50 mg-emtricitabine 1 tab PO DAILY 07/18/22 07/14/23 200 mg-tenofovir alafenam 25 mg tablet (Biktarvy) atovaquone 750 mg/5 mL oral 750 mg PO BID 07/09/23 07/14/23 suspension budesonide-formoterol HFA 160 2 puff inhalation BID 07/09/23 07/14/23 mcg-4.5 mcg/actuation aerosol inhaler (Symbicort) ethambutol 400 mg tablet 1,200 mg PO DAILY 07/09/23 07/14/23 Previous Rx's Medication Instructions Recorded nicotine 14 mg/24 hr daily 1 patch transdermal Q24H #28 ea 07/11/23 transdermal patch (Nicoderm CQ) prednisone 20 mg tablet 40 mg PO DAILY #10 tabs 07/11/23 Allergies Allergy/AdvReac Type Severity Reaction Status Date / Time sulfamethoxazole Allergy Severe SWELLING Verified 07/18/22 09:02 [From BACTRIM] trimethoprim [From BACTRIM] Allergy Severe SWELLING Verified 07/18/22 09:02 Sulfa (Sulfonamide Allergy Unknown Unknown Verified 07/18/22 09:02 Antibiotics) Review of Systems Review of Systems: Yes all other systems are reviewed and are negative Constitutional: Constitutional: Reports no additional constitutional complaints, Denies body ache(s), Reports chills, Reports fever(s), Denies headache(s) and Denies weakness Eyes: Eyes: Reports no additional eye complaints and Denies change in vision ENT: Reports system reviewed and no additional complaints, except as documented, Denies dizziness, Denies headache(s), Denies nasal congestion, Denies nasal discharge and Denies neck pain Cardiovascular: Cardiovascular: Reports no additional cardiovascular complaints, Denies chest pain, Denies leg edema and Reports dyspnea Respiratory: Respiratory: Reports no additional respiratory complaints, Reports cough and Reports dyspnea Gastrointestinal: Gastrointestinal: Reports no additional gastrointestinal complaints, Denies abdominal pain, Denies diarrhea, Denies nausea and Denies vomiting Genitourinary: Genitourinary: Reports no additional female genitourinary complaints and Denies urinary incontinence Musculoskeletal: Musculoskeletal: Reports no additional musculoskeletal complaints, Denies back pain, Denies arthralgias, Denies joint swelling, Denies neck pain, Denies numbness and Denies tingling Integumentary/Breasts: Skin/Breast: Reports system reviewed and no additional complaints, except as docu and Denies rash Neurologic: Reports system reviewed and no additional complaints, except as documented, Denies Abnormal speech present, Denies dizziness, Denies headache(s), Denies numbness, Denies tingling and Denies weakness PMFSH Past Medical History Attestation statement: The following information was validated with the patient. Source: old records reviewed and nursing notes reviewed Medical History Bronchiectasis CAP (community acquired pneumonia) Hidradenitis suppurativa HIV (human immunodeficiency virus infection) 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 Surgical History History of appendectomy Tubal ligation status Social History Social History Household Members: Children Housing: Apartment Do you presently have visiting nurse or other home services: No Alcohol intake: never Patient Tobacco Use Status: Current everyday Tobacco user Tobacco use type: Cigarette Substance Use Type: Marijuana Advance Directives: No Advance Directives Information Provided: No service: No Physical Exam Vital Signs: Vital Signs: Last Vital Signs Temp 98.9 F 07/14/23 22:56 Pulse 98 07/14/23 22:56 Resp 20 07/14/23 22:56 BP 111/64 07/14/23 22:56 Pulse Ox 97 07/14/23 22:56 O2 Del Method Room Air 07/14/23 22:56 BMI result Body Mass Index 21.0 Const: General: cooperative, healthy appearing, comfortable and no acute distress Orientation/consciousness: patient oriented x3 Limitations: no limitations HEENT: Head: Yes normal to inspection Ears: hearing grossly normal bilaterally General nose exam: Normal external nose present Face and sinus: Yes normal facial exam Mouth: Normal oral and palatal mucosa present Throat: Yes posterior oropharynx normal Eyes: General: appearance normal, both eyes and all related structures Pupils: Equal, round and reactive pupils present Neck: Neck: Yes normal visual inspection Chest: Chest palpation & inspection: normal inspection of the chest Resp: Effort & Inspection: normal respiratory effort Auscultation: clear to auscultation bilaterally Cardio: Rate: regular rate Rhythm: regular rhythm Peripheral pulses: Peripheral pulses 2+ throughout GI: Inspection: Yes normal to inspection Palpation (GI): Soft to palpation and nontender Auscultation: normal bowel sounds Back/Spine/Pelvis: Thoracic/Lumbar Spine: thoracic and lumbar spine normal to inspection Skin: General skin exam: no rashes or lesions noted Neuro: General: patient oriented x3, no focal motor deficits and normal sensation to monofilament Cranial nerves: Yes Equal, round and reactive pupils present Cognition (Neuro): normal cognition Speech: No Abnormal speech present Gait exam (Neuro): Normal gait present Motor exam (neuro): 5/5 motor strength present throughout Extrem: General: Yes normal to inspection Medications Administered Generic Name Dose Route Start Last Admin Trade Name Freq PRN Reason Stop Dose Admin Magnesium Sulfate 2 gm in 50 mls @ 25 mls/hr 07/14/23 21:20 07/14/23 22:07 Magnesium Sulfate/H2o IV 07/14/23 23:19 25 mls/hr ONCE ONE Administration Discontinued Medications Generic Name Dose Route Start Last Admin Trade Name Freq PRN Reason Stop Dose Admin Acetaminophen 975 mg 07/14/23 18:20 07/14/23 18:40 Acetaminophen 325 Mg Tablet PO 07/14/23 18:21 975 mg ONCE ONE Administration Albuterol/Ipratropium 3 ml 07/14/23 19:00 07/14/23 19:14 Albuterol/Iprat 2.5/0.5mg 3 Ml Ampul.Neb INHALE 07/14/23 19:01 3 ml ONCE ONE Administration Sodium Chloride 1,000 mls @ 999 mls/hr 07/14/23 18:19 07/14/23 18:40 Ns IV 07/14/23 19:19 999 mls/hr .Q1H1M STA Administration Cefepime HCl 2 gm/ Sodium 50 mls @ 100 mls/hr 07/14/23 18:45 07/14/23 20:44 Chloride IV 07/14/23 19:14 100 mls/hr ONCE ONE Administration Sodium Chloride 1,000 mls @ 999 mls/hr 07/14/23 21:16 07/14/23 21:39 Ns IV 07/14/23 22:16 999 mls/hr .Q1H1M STA Administration Calcium Gluconate 1 gm in 50 mls @ 50 mls/hr 07/14/23 21:22 07/14/23 22:07 Calcium Gluconate IV 07/14/23 22:21 50 mls/hr ONCE ONE Administration Potassium Chloride 10 meq in 100 mls @ 100 mls/hr 07/14/23 21:22 07/14/23 21:46 Potassium Chloride/H20 IV 07/14/23 22:21 100 mls/hr ONCE ONE Administration Methylprednisolone Sodium Succinate 125 mg 07/14/23 19:00 07/14/23 19:58 Methylprednisolone Sod Succ 125 Mg/2 Ml Vial IVPUSH 07/14/23 19:01 125 mg ONCE ONE Administration Morphine Sulfate 4 mg 07/14/23 19:00 07/14/23 20:02 Morphine Sulfate 4 Mg/Ml Cartridge IVPUSH 07/14/23 19:01 4 mg ONCE ONE Administration Protocol Potassium Chloride 60 meq 07/14/23 21:22 07/14/23 21:56 Potassium Chloride Er 20 Meq Tab.Er.Prt PO 07/14/23 21:23 60 meq ONCE ONE Administration Medical Decision Making Medical Decision Making MDM Narrative: 32-year-old female with history of HIV/aids, pulmonary infection d/t Mycobacterium avium currently on treatment with atovaquone, azithromycin, ethambutol presents to the ER with complaints of shortness of breath, fevers and chills. Patient reports that she was admitted July 09 through July 11 for pneumonia and was discharged on the on prednisone, cefuroxome Per EMS patient's initial blood pressure was 70/30 and she received 500 mL of fluids before arrival Patient reports she has been compliant with her medications On arrival patient is febrile, tachycardic. At this time infection is suspected I will order labs including blood cultures and lactic acid I am, chest x-ray, COVID screen. Antibiotics ordered. Will give Solu-Medrol, DuoNeb, morphine for pain Differential Diagnosis Differential Diagnoses: The differential diagnosis associated with the presentation includes Pneumonia Low concern for PE as patient had a a CTA 5 days ago which was negative, has no clinical concerning for DVT and a D-dimer which is trending down Admission/Observation Consideration of admission/observation: Escalation of care including admission/observation considered This is a woman who is HIV positive with a history of pneumonia who is currently on antibiotics who presents with fever of 103 despite taking her antibiotics. Necessitates admission for IV antibiotics and ID consultation Consult Healthcare Provider Management of the patient was discussed with: Hospitalist and Wildlife Ecology Professor Spoke to the hospitalist (Dr Kincaid) who will accept admission but would like ID consultation I placed a call to ID at [phone] who called back at [phone] and recommended ceftriaxone and doxyxycline ([place]) Lab Data MDM Lab Attestation statement: I reviewed the patient's lab results. Hypokalemia, hypo magnesiumia, hypocalcemia. Replacement ordered 07/14/23 20:54 07/14/23 20:54 Labs: Lab Results 07/14/23 07/14/23 07/14/23 Range/Units 18:42 20:36 20:36 WBC (4.8-10.8) X10*3/uL RBC (4.20-5.50) X10*6/uL Hgb (12.0-16.0) g/dl Hct (37.0-47.0) % MCV (80.0-98.0) fL MCH (27.0-33.0) pg MCHC (31.0-35.0) g/dl RDW (11.0-16.0) % Plt Count (160-400) X10*3/uL MPV (9.4-12.3) fL Immature Gran % (Auto) Neut % (Auto) Lymph % (Auto) [place] % (Auto) Eos % (Auto) Baso % (Auto) Lymph # (Auto) [place] # (Auto) Eos # (Auto) Baso # (Auto) Abs Immat Gran (auto) Absolute Neuts (auto) Absolute Nucleated RBC (0.0-0.012) X10*3/uL Nucleated RBC % (auto) (0.0-0.2) /100WBC Neutrophils % (Manual) (45-73) % Band Neutrophils % (3-5) % Lymphocytes % (Manual) (20-40) % Monocytes % (Manual) (2-11) % Abs Neuts (Manual) (2.0-8.3) X10*3/uL Lymphocytes # (Manual) (1.2-4.9) X10*3/uL Monocytes # (Manual) (0.1-1.2) X10*3/uL Platelet Estimate (NORMAL) Large Platelets Plt Morphology Comment RBC Morphology Polychromasia /OIF Hypochromasia /OIF Microcytosis /OIF Macrocytosis /OIF ESR 36 H (0-20) MM/HR PT (11.1-13.3) SEC INR (0.9-1.1) D-Dimer High Sensitivty NG/ML Sodium (135-145) mmol/L Potassium (3.3-5.1) mmol/L Chloride (96-108) mmol/L Carbon Dioxide (22-29) mmol/L Anion Gap (12-20) BUN (9-16) mg/dL Creatinine (0.5-1.4) mg/dL Estim Creat Clear Calc Estimated GFR Random Glucose (60-115) mg/dL Lactic Acid (0.5-2.0) mmol/L Calcium (8.4-10.2) mg/dL Magnesium (1.6-2.6) mg/dL Total Bilirubin (0.0-1.0) mg/dL Direct Bilirubin (0.0-0.5) mg/dL AST (5-31) U/L ALT (0-31) U/L Alkaline Phosphatase (39-117) U/L Troponin I High Sens (<3.5-17.0) ng/L C-Reactive Protein (< or = 0.50) mg/dL Total Protein (6.5-8.0) g/dL Albumin (3.5-5.0) g/dL Urine Color Yellow Urine Appearance Clear Urine pH 6.0 (5.0-9.0) Ur Specific [place]ill <= 1.005 (1.005-1.025) Urine Protein Negative (Neg-Trace) mg/dL Urine Glucose (UA) Negative (Negative) mg/dL Urine Ketones Negative (Negative) mg/dL Urine Blood Negative (Negative) Urine Nitrite Negative (Negative) Ur Leukocyte Esterase Negative (Negative) Influenza Type A (PCR) NEGATIVE (Negative) Influenza Type B (PCR) NEGATIVE (Negative) RSV RNA Qual (PCR) NEGATIVE (Negative) SARS-CoV-2 RNA (RT-PCR) NEGATIVE (Negative) 07/14/23 07/14/23 07/14/23 Range/Units 20:36 20:36 20:54 WBC 7.8 (4.8-10.8) X10*3/uL RBC 2.77 L (4.20-5.50) X10*6/uL Hgb 8.5 L (12.0-16.0) g/dl Hct 25.9 L (37.0-47.0) % MCV 93.5 (80.0-98.0) fL MCH 30.7 (27.0-33.0) pg MCHC 32.8 (31.0-35.0) g/dl RDW 17.2 H (11.0-16.0) % Plt Count 169 D (160-400) X10*3/uL MPV 12.8 H (9.4-12.3) fL Immature Gran % (Auto) Cancelled Neut % (Auto) Cancelled Lymph % (Auto) Cancelled [place] % (Auto) Cancelled Eos % (Auto) Cancelled Baso % (Auto) Cancelled Lymph # (Auto) Cancelled [place] # (Auto) Cancelled Eos # (Auto) Cancelled Baso # (Auto) Cancelled Abs Immat Gran (auto) Cancelled Absolute Neuts (auto) Cancelled Absolute Nucleated RBC 0.080 H (0.0-0.012) X10*3/uL Nucleated RBC % (auto) 1.0 H (0.0-0.2) /100WBC Neutrophils % (Manual) 82 H (45-73) % Band Neutrophils % 0 L (3-5) % Lymphocytes % (Manual) 10 L (20-40) % Monocytes % (Manual) 8 (2-11) % Abs Neuts (Manual) 6.4 (2.0-8.3) X10*3/uL Lymphocytes # (Manual) 0.8 L (1.2-4.9) X10*3/uL Monocytes # (Manual) 0.6 (0.1-1.2) X10*3/uL Platelet Estimate NORMAL (NORMAL) Large Platelets PRESENT Plt Morphology Comment NOTED RBC Morphology NOTED Polychromasia 1+ (0-2) /OIF Hypochromasia 1+ (5-14) /OIF Microcytosis 1+ (5-14) /OIF Macrocytosis 1+ (5-14) /OIF ESR (0-20) MM/HR PT 11.8 (11.1-13.3) SEC INR 1.0 (0.9-1.1) D-Dimer High Sensitivty 442 NG/ML Sodium (135-145) mmol/L Potassium (3.3-5.1) mmol/L Chloride (96-108) mmol/L Carbon Dioxide (22-29) mmol/L Anion Gap (12-20) BUN (9-16) mg/dL Creatinine (0.5-1.4) mg/dL Estim Creat Clear Calc Estimated GFR Random Glucose (60-115) mg/dL Lactic Acid 0.8 (0.5-2.0) mmol/L Calcium (8.4-10.2) mg/dL Magnesium (1.6-2.6) mg/dL Total Bilirubin (0.0-1.0) mg/dL Direct Bilirubin (0.0-0.5) mg/dL AST (5-31) U/L ALT (0-31) U/L Alkaline Phosphatase (39-117) U/L Troponin I High Sens (<3.5-17.0) ng/L C-Reactive Protein (< or = 0.50) mg/dL Total Protein (6.5-8.0) g/dL Albumin (3.5-5.0) g/dL Urine Color Urine Appearance Urine pH (5.0-9.0) Ur Specific [place] (1.005-1.025) Urine Protein (Neg-Trace) mg/dL Urine Glucose (UA) (Negative) mg/dL Urine Ketones (Negative) mg/dL Urine Blood (Negative) Urine Nitrite (Negative) Ur Leukocyte Esterase (Negative) Influenza Type A (PCR) (Negative) Influenza Type B (PCR) (Negative) RSV RNA Qual (PCR) (Negative) SARS-CoV-2 RNA (RT-PCR) (Negative) 07/14/23 07/14/23 Range/Units 20:54 20:54 WBC (4.8-10.8) X10*3/uL RBC (4.20-5.50) X10*6/uL Hgb (12.0-16.0) g/dl Hct (37.0-47.0) % MCV (80.0-98.0) fL MCH (27.0-33.0) pg MCHC (31.0-35.0) g/dl RDW (11.0-16.0) % Plt Count (160-400) X10*3/uL MPV (9.4-12.3) fL Immature Gran % (Auto) Neut % (Auto) Lymph % (Auto) [place] % (Auto) Eos % (Auto) Baso % (Auto) Lymph # (Auto) [place] # (Auto) Eos # (Auto) Baso # (Auto) Abs Immat Gran (auto) Absolute Neuts (auto) Absolute Nucleated RBC (0.0-0.012) X10*3/uL Nucleated RBC % (auto) (0.0-0.2) /100WBC Neutrophils % (Manual) (45-73) % Band Neutrophils % (3-5) % Lymphocytes % (Manual) (20-40) % Monocytes % (Manual) (2-11) % Abs Neuts (Manual) (2.0-8.3) X10*3/uL Lymphocytes # (Manual) (1.2-4.9) X10*3/uL Monocytes # (Manual) (0.1-1.2) X10*3/uL Platelet Estimate (NORMAL) Large Platelets Plt Morphology Comment RBC Morphology Polychromasia /OIF Hypochromasia /OIF Microcytosis /OIF Macrocytosis /OIF ESR (0-20) MM/HR PT (11.1-13.3) SEC INR (0.9-1.1) D-Dimer High Sensitivty NG/ML Sodium 136 (135-145) mmol/L Potassium 2.7 L D (3.3-5.1) mmol/L Chloride 112 H (96-108) mmol/L Carbon Dioxide 17 L (22-29) mmol/L Anion Gap 10 L (12-20) BUN 17 H (9-16) mg/dL Creatinine 0.84 (0.5-1.4) mg/dL Estim Creat Clear Calc 90.3 Estimated GFR > 60 Random Glucose 89 (60-115) mg/dL Lactic Acid (0.5-2.0) mmol/L Calcium 7.8 L D (8.4-10.2) mg/dL Magnesium 1.2 L* (1.6-2.6) mg/dL Total Bilirubin 0.5 (0.0-1.0) mg/dL Direct Bilirubin 0.2 (0.0-0.5) mg/dL AST 24 (5-31) U/L ALT 37 H (0-31) U/L Alkaline Phosphatase 75 (39-117) U/L Troponin I High Sens 5.2 D (<3.5-17.0) ng/L C-Reactive Protein 5.12 H (< or = 0.50) mg/dL Total Protein 5.8 L (6.5-8.0) g/dL Albumin 2.8 L (3.5-5.0) g/dL Urine Color Urine Appearance Urine pH (5.0-9.0) Ur Specific [place] (1.005-1.025) Urine Protein (Neg-Trace) mg/dL Urine Glucose (UA) (Negative) mg/dL Urine Ketones (Negative) mg/dL Urine Blood (Negative) Urine Nitrite (Negative) Ur Leukocyte Esterase (Negative) Influenza Type A (PCR) (Negative) Influenza Type B (PCR) (Negative) RSV RNA Qual (PCR) (Negative) SARS-CoV-2 RNA (RT-PCR) (Negative) Independent Interpretation I performed an independent interpretation of an: EKG and Plain X-Ray Interpretation: I independently reviewed the x-ray and agree with the radiology report I independently reviewed the EKG which shows sinus tachycardia with a rate of 101, normal KS, normal QRS, normal QT Radiology Impression Discussion of test interpretation with radiology: I have reviewed the radiologist's reading. Radiologist Impression: [address] [place] [address] XRay Report Signed Patient: Nelida Hopkins MR#: [id number] : 1990 Acct:[id number] Age/Sex: 32 / F ADM Date: 07/14/23 Loc: .ED Attending Dr: Ordering Physician: Columba Sahni NP Date of Service: 07/14/23 Procedure(s): XR chest 2V Accession Number(s): [id number] cc: Columba Sahni NP~ EXAMINATION: XR CHEST CLINICAL INFORMATION: Shortness of breath. COMPARISON: 07/09/2023 TECHNIQUE: 2 views of the chest were obtained. FINDINGS: The cardiomediastinal silhouette is normal. There is no focal lung consolidation or pleural effusion. The bony structures and soft tissues are unremarkable. XR/XR chest 2V IMPRESSION: No active cardiopulmonary disease. Independent Historian Clinical information obtained from an independent historian. History obtained from or confirmed by: EMS Clinical information obtained from EMS and confirmed with the patient External Record Review External record reviewed: Inpatient record Reviewed inpatient records from July 09 through July 11 Tests considered The following testing was considered but not selected: See discussion and course of care Critical Care Time Critical Care Time Critical Care Time: Yes Total Critical Care Time: 60 Attestation: d/w with Infectious Disease, medicine team for admission, review of previous records, re-evaluation of patient for her respiratory status and vital signs Discharge Plan Discharge Clinical Impression: Acute febrile illness, Pneumonia, Hypomagnesemia, Hypocalcemia, Hypokalemia Patient Disposition: Admitted As Inpatient
[2023-07-14 18:51] LABS: Appearance Urine Clear; Color Urine Yellow; Glucose Urine UA Negative (Negative); Leukocyte Esterase Urine Negative (Negative); Nitrite Urine Negative (Negative); Specific Gravity - Urine <= 1.005 (1.005-1.025); Urine Blood Negative (Negative); Urine Ketones Negative (Negative); Urine Protein Negative (Neg-Trace)
--- NOTE | 2023-07-14 19:11 | PC.NURSE ---
patient has IV from EMS, 20#
[2023-07-14] MEDS: Albuterol/Iprat 2.5/0.5MG 3 ML AMPUL.NEB INHALE (19:14)
[2023-07-14] MEDS: methylPREDNISolone Sod Succ 125 MG/2 ML VIAL IVPUSH (19:58)
[2023-07-14] MEDS: Morphine Sulfate 4 MG/ML CARTRIDGE IVPUSH (20:02)
[2023-07-14] MEDS: cefEPime HCl 2 GM in 0.9 % Sodium Chloride 50 ML IV (20:44)
[2023-07-14 20:54] LABS: Prothrombin Time 11.8 SEC (11.1-13.3)
[2023-07-14 20:55] LABS: Lactic Acid 0.8 mmol/L (0.5-2.0)
--- NOTE | 2023-07-14 21:01 | MHC.EDTECH ---
This tech assumed care of patient at 1930, Labs and vitals were taken,patient has a temp of 100.4 orally and a bp of 96/52,[employer] SALESPERSON Columba at bedside and is aware. Patient ambulated to bathroom with a steady gait.
[2023-07-14 21:06] LABS: Hematocrit 25.9 % (37.0-47.0); Hemoglobin 8.5 g/dl (12.0-16.0); Mean Corpuscular HGB Conc 32.8 g/dl (31.0-35.0); Mean Corpuscular Hemoglobin 30.7 pg (27.0-33.0); Mean Corpuscular Volume 93.5 fL (80.0-98.0); Mean Platelet Volume 12.8 fL (9.4-12.3); Platelet Count 169 X10*3/uL (160-400); Red Blood Count 2.77 X10*6/uL (4.20-5.50); Red Cell Distribution Width 17.2 % (11.0-16.0)
[2023-07-14 21:07] LABS: WBC ABN SCTR FOR CBC 1
[2023-07-14 21:21] LABS: Alanine Aminotransferase 37 U/L (0-31); Albumin Level 2.8 g/dL (3.5-5.0); Alkaline Phosphatase 75 U/L (39-117); Anion Gap 10 (12-20); Aspartate Amino Transferase 24 U/L (5-31); Bilirubin Direct 0.2 mg/dL (0.0-0.5); Bilirubin Total 0.5 mg/dL (0.0-1.0); Blood Urea Nitrogen 17 mg/dL (9-16); C Reactive Protein 5.12 mg/dL (< or = 0.50); Calcium 7.8 mg/dL (8.4-10.2); Carbon Dioxide 17 mmol/L (22-29); Chloride 112 mmol/L (96-108); Creatinine Clr Calc Pharmacy 90.3; Estimated Glomerular Filt Rate > 60; Glucose Random 89 mg/dL (60-115); Magnesium 1.2 mg/dL (1.6-2.6); Potassium 2.7 mmol/L (3.3-5.1); Sodium 136 mmol/L (135-145); Total Protein 5.8 g/dL (6.5-8.0)
[2023-07-14 21:22] LABS: Erythrocyte Sedimentation Rate 36 MM/HR (0-20)
[2023-07-14 21:24] LABS: Lymphocytes Percent Manual 10 % (20-40); Monocytes Percent Manual 8 % (2-11); Neutrophils Percent Manual 82 % (45-73); Troponin-I High Sensitivity 5.2 ng/L (<3.5-17.0)
[2023-07-14 21:25] LABS: Band Neutrophils Percent 0 % (3-5)
[2023-07-14 21:26] LABS: Hypochromasia 1+ (5-14) /OIF; Macrocytosis 1+ (5-14) /OIF; Microcytosis 1+ (5-14) /OIF; Platelet Estimate NORMAL (NORMAL); Polychromasia 1+ (0-2) /OIF; RBC Morphology NOTED
[2023-07-14 21:27] LABS: Large Platelet PRESENT; Platelet Morphology Comment NOTED
--- NOTE | 2023-07-14 21:33 | MHC.EDTECH ---
Hourly Rnds and VS completed, BI MANAGER and RN aware, Pt given turkey sandwich, rosario charly and cranberry juice. Belonging list completed and placed in chart. Call campos within reach.
[2023-07-14 21:36] LABS: Lymphocytes Absolute Manual 0.8 X10*3/uL (1.2-4.9); Monocytes Absolute Manual 0.6 X10*3/uL (0.1-1.2); Neutrophils Absolute Manual 6.4 X10*3/uL (2.0-8.3); White Blood Count 7.8 X10*3/uL (4.8-10.8)
[2023-07-14] MEDS: Potassium Chloride/H20 10 MEQ/100 ML PIGGYBACK 100 MEQ IV (21:46)
[2023-07-14] MEDS: Potassium Chloride ER 20 MEQ TAB.ER.PRT 60 MEQ PO (21:56)
[2023-07-14] MEDS: Calcium Gluconate/NaCl,Iso-Osm 1 GM/50 ML PLAST..BAG IV (22:07)
[2023-07-14] MEDS: Magnesium Sulfate/H2O 2 GM/50 ML PIGGYBACK IV (22:07)
[2023-07-14 22:19] LABS: Influenza A PCR NEGATIVE (Negative); Influenza B PCR NEGATIVE (Negative); Resp Syncy Virus RNA Qual PCR NEGATIVE (Negative); SARS COV2 PCR INHOUSE NEGATIVE (Negative)
--- NOTE | 2023-07-14 22:21 | PHA.MEDREC ---
Addendum entered by Corina Mathis RPh 07/14/23 22:23: Patient had Atrovent inhaler, this was start while admitted but it was not continued on discharge. Original Note: Pharmacy Consult ? Medication Reconciliation Pharmacy has completed the medication reconciliation. Patient had medications with her. Patient has 3 days of prednsone left. Patient had Breo inhaler she was DC'd with on 07/11 but use Symbicort
[2023-07-14 22:43] LABS: D Dimer High Sensitivity 442 NG/ML
--- NOTE | 2023-07-14 23:05 | PM.IMHP ---
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 She was given Ceftin and was discharged home. On day of discharge on the she had significant improvement of her respiratory status and was sent home. She returns today reporting fever of 105, worsening shortness of breath, cough, and some sputum production. She denies any chest pain, no abdominal pain, no nausea vomiting, no diarrhea constipation, no urinary symptoms and no lower extremity edema Little able to the ED patient noted to have a fever of 102.5, heart rate of 102, blood pressure 121/56 with subsequent soft blood pressure readings Labs were noted for WBC count of 7.8, hemoglobin of 8.5 which is slightly lower than her baseline, hematocrit 25.9, potassium 2.7, chloride of 112, BUN of 17, creatinine of 0.87, magnesium 1.2, albumin of 2.8, UA negative, Note patient was diagnosed with coronavirus infection on previous admission. 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 Surgical History History of appendectomy Tubal ligation status Social History Household Members: Children Housing: Apartment Do you presently have visiting nurse or other home services: No Alcohol intake: never Patient Tobacco Use Status: Current everyday Tobacco user Tobacco use type: Cigarette Substance Use Type: Marijuana Advance Directives: No Advance Directives Information Provided: No service: No Meds Allergies Allergy/AdvReac Type Severity Reaction Status Date / Time sulfamethoxazole Allergy Severe SWELLING Verified 07/18/22 09:02 [From BACTRIM] trimethoprim [From BACTRIM] Allergy Severe SWELLING Verified 07/18/22 09:02 Sulfa (Sulfonamide Allergy Unknown Unknown Verified 07/18/22 09:02 Antibiotics) Active Medications: Current Medications Magnesium Sulfate (Magnesium Sulfate/H2o) 2 gm in 50 mls @ 25 mls/hr IV ONCE ONE Stop: 07/14/23 23:19 Last Admin: 07/14/23 22:07 Dose: 25 mls/hr Doxycycline Hyclate 100 mg/ (Sodium Chloride) 250 mls @ 166.67 mls/hr IV ONCE ONE Stop: 07/14/23 23:52 Home Medications Medication Instructions Recorded Confirmed Last Taken Type albuterol sulfate 90 mcg/actuation 2 puff inhalation Q4H PRN 07/18/22 07/14/23 07/14/23 History aerosol inhaler (ProAir HFA) Shortness Of Breath Or Wheezing bictegravir 50 mg-emtricitabine 1 tab PO DAILY 07/18/22 07/14/23 07/14/23 History 200 mg-tenofovir alafenam 25 mg tablet (Biktarvy) atovaquone 750 mg/5 mL oral 750 mg PO BID 07/09/23 07/14/23 07/14/23 History suspension budesonide-formoterol HFA 160 2 puff inhalation BID 07/09/23 07/14/23 07/14/23 History mcg-4.5 mcg/actuation aerosol inhaler (Symbicort) ethambutol 400 mg tablet 1,200 mg PO DAILY 07/09/23 07/14/23 07/14/23 History Physical Exam Vital Signs and Narrative: Vital Signs: Last Vital Signs Temp 98.9 F 07/14/23 22:56 Pulse 98 07/14/23 22:56 Resp 20 07/14/23 22:56 BP 111/64 07/14/23 22:56 Pulse Ox 97 07/14/23 22:56 O2 Del Method Room Air 07/14/23 22:56 BMI result Body Mass Index 21.0 Const: Other: ill-appearing Resp: Other: Tachypneic, bilateral rhonchi Results Labs 07/14/23 20:54 08/25/23 20:54 Labs: Laboratory Results - last 24 hr 07/14/23 07/14/23 07/14/23 18:42 20:36 20:36 MCV MCH MCHC RDW Plt Count MPV Immature Gran % (Auto) Neut % (Auto) Lymph % (Auto) [place] % (Auto) Eos % (Auto) Baso % (Auto) Lymph # (Auto) [place] # (Auto) Eos # (Auto) Baso # (Auto) Abs Immat Gran (auto) Absolute Neuts (auto) Absolute Nucleated RBC Nucleated RBC % (auto) Neutrophils % (Manual) Band Neutrophils % Lymphocytes % (Manual) Monocytes % (Manual) Abs Neuts (Manual) Lymphocytes # (Manual) Monocytes # (Manual) Platelet Estimate Large Platelets Plt Morphology Comment RBC Morphology Polychromasia Hypochromasia Microcytosis Macrocytosis ESR 36 H PT INR D-Dimer High Sensitivty Anion Gap Estim Creat Clear Calc Estimated GFR Random Glucose Lactic Acid Calcium Magnesium Total Bilirubin Direct Bilirubin AST ALT Alkaline Phosphatase C-Reactive Protein Total Protein Albumin Urine Color Yellow Urine Appearance Clear Urine pH 6.0 Ur Specific [place] <= 1.005 Urine Protein Negative Urine Glucose (UA) Negative Urine Ketones Negative Urine Blood Negative Urine Nitrite Negative Ur Leukocyte Esterase Negative Influenza Type A (PCR) NEGATIVE Influenza Type B (PCR) NEGATIVE RSV RNA Qual (PCR) NEGATIVE SARS-CoV-2 RNA (RT-PCR) NEGATIVE 07/14/23 07/14/23 07/14/23 20:36 20:36 20:54 MCV 93.5 MCH 30.7 MCHC 32.8 RDW 17.2 H Plt Count 169 D MPV 12.8 H Immature Gran % (Auto) Cancelled Neut % (Auto) Cancelled Lymph % (Auto) Cancelled [place] % (Auto) Cancelled Eos % (Auto) Cancelled Baso % (Auto) Cancelled Lymph # (Auto) Cancelled [place] # (Auto) Cancelled Eos # (Auto) Cancelled Baso # (Auto) Cancelled Abs Immat Gran (auto) Cancelled Absolute Neuts (auto) Cancelled Absolute Nucleated RBC 0.080 H Nucleated RBC % (auto) 1.0 H Neutrophils % (Manual) 82 H Band Neutrophils % 0 L Lymphocytes % (Manual) 10 L Monocytes % (Manual) 8 Abs Neuts (Manual) 6.4 Lymphocytes # (Manual) 0.8 L Monocytes # (Manual) 0.6 Platelet Estimate NORMAL Large Platelets PRESENT Plt Morphology Comment NOTED RBC Morphology NOTED Polychromasia 1+ (0-2) Hypochromasia 1+ (5-14) Microcytosis 1+ (5-14) Macrocytosis 1+ (5-14) ESR PT 11.8 INR 1.0 D-Dimer High Sensitivty 442 Anion Gap Estim Creat Clear Calc Estimated GFR Random Glucose Lactic Acid 0.8 Calcium Magnesium Total Bilirubin Direct Bilirubin AST ALT Alkaline Phosphatase C-Reactive Protein Total Protein Albumin Urine Color Urine Appearance Urine pH Ur Specific [place] Urine Protein Urine Glucose (UA) Urine Ketones Urine Blood Urine Nitrite Ur Leukocyte Esterase Influenza Type A (PCR) Influenza Type B (PCR) RSV RNA Qual (PCR) SARS-CoV-2 RNA (RT-PCR) 07/14/23 20:54 MCV MCH MCHC RDW Plt Count MPV Immature Gran % (Auto) Neut % (Auto) Lymph % (Auto) [place] % (Auto) Eos % (Auto) Baso % (Auto) Lymph # (Auto) [place] # (Auto) Eos # (Auto) Baso # (Auto) Abs Immat Gran (auto) Absolute Neuts (auto) Absolute Nucleated RBC Nucleated RBC % (auto) Neutrophils % (Manual) Band Neutrophils % Lymphocytes % (Manual) Monocytes % (Manual) Abs Neuts (Manual) Lymphocytes # (Manual) Monocytes # (Manual) Platelet Estimate Large Platelets Plt Morphology Comment RBC Morphology Polychromasia Hypochromasia Microcytosis Macrocytosis ESR PT INR D-Dimer High Sensitivty Anion Gap 10 L Estim Creat Clear Calc 90.3 Estimated GFR > 60 Random Glucose 89 Lactic Acid Calcium 7.8 L D Magnesium 1.2 L* Total Bilirubin 0.5 Direct Bilirubin 0.2 AST 24 ALT 37 H Alkaline Phosphatase 75 C-Reactive Protein 5.12 H Total Protein 5.8 L Albumin 2.8 L Urine Color Urine Appearance Urine pH Ur Specific [place] Urine Protein Urine Glucose (UA) Urine Ketones Urine Blood Urine Nitrite Ur Leukocyte Esterase Influenza Type A (PCR) Influenza Type B (PCR) RSV RNA Qual (PCR) SARS-CoV-2 RNA (RT-PCR) Imaging Radiologist's Impressions: Impressions Chest X-Ray 07/14/23 18:30 IMPRESSION: No active cardiopulmonary disease. Assessment and Plan (1) Sepsis: Status: Acute (2) Acute febrile illness: Status: Acute (3) Hypomagnesemia: Status: Acute (4) Hypokalemia: Status: Acute (5) AIDS: Status: Acute (6) CAP (community acquired pneumonia): Status: Acute (7) Pulmonary Mycobacterium avium complex (MAC) infection: Status: Acute Plan this is a 32-year-old female with past medical history of AIDS/HIV, comes into the hospital shortness of breath found to have likely pneumonia # sepsis - febrile, tachycardic, - likely secondary to respiratory infection - CT of the chest on recent admission showed worsening infiltrate - has history of MAC infection - note patient was admitted and discharged on the for the similar presentation, that time felt to be secondary to bronchiectasis, patient was given Ceftin and sent home - sections Disease was consulted, recommended doxycycline, ceftriaxone - blood cultures # community-acquired pneumonia - viral versus bacterial - was positive from previous admission for coronavirus - has 8, underlying MAC - will treat with IV antibiotics - follow cultures - infectious disease consulted # electrolyte abnormality - hypo magnesemia,hypokalemia - repleted - follow BMP, Mag # MAC infection - continue ethambutol, atovaquone # AIDS - will will add azithromycin DVT prophylaxis: Lovenox Given patient's need for IV antibiotics you require minimum tonight inpatient hospital stay for further management and monitoring Time Spent With Patient Time: Total time managing care of this patient today ____ minutes. Quality Stroke Does the patient have a stroke diagnosis?: No VTE Prior VTE?: No VTE Risk Level:: Medical - moderate - high VTE Device Contraindication: Treatment Not Indicated VTE Drug Contraindication: N/A - Med Ordered
--- NOTE | 2023-07-14 23:43 | MHC.EDTECH ---
Hourly rounds and vitals completed,patient is sleeping,and call campos within reach.
[2023-07-14] MEDS: Enoxaparin Sodium 40 MG/0.4 ML SYRINGE SUBCUT (23:53)
[2023-07-14] MEDS: Doxycycline Hyclate 100 MG in 0.9 % Sodium Chloride 250 ML 166.67 MG IV (23:53)
[2023-07-14] MEDS: Potassium Chloride Packet 20 MEQ PACKET 40 MEQ PO (23:53)
[2023-07-14] MEDS: Nicotine 14 MG PATCH.TD24 TRANSDERMA (23:54)
[2023-07-15] VITALS (8 sets, daily range): BP systolic 98–117; BP diastolic 53–65; PULSE 50–84; RESP 16–18; TEMP 36–36.7; O2SAT 95–99
--- NOTE | 2023-07-15 00:51 | PC.NURSE ---
nurse to nurse report given to Princess. Pt to be transported by electrical instrument technician
--- NOTE | 2023-07-15 00:55 | MHC.EDTECH ---
Patient got up to commode and urinated, vitals were taken and patient has a room assigned at this time.
[2023-07-15] MEDS: Acetaminophen 325 MG TABLET 650 MG PO ×2 (00:59→20:12)
[2023-07-15] MEDS: Atovaquone 750 MG/5 ML ORAL.SUSP PO ×3 (01:00→20:04)
--- NOTE | 2023-07-15 01:10 | PC.NURSE ---
Assumed care of patient at 1950. Patient alert and oriented x4, pt febrile and tachy, Medications administered as per JAN.
[2023-07-15] MEDS: oxyCODONE HCl Immed Release 5 MG TABLET PO ×3 (01:58→16:47)
--- NOTE | 2023-07-15 03:15 | PC.NURSE ---
Addendum entered by Princess Hu RN 07/15/23 05:37: pt verbalize decrease in pain level from 10/10 to 4/10. Original Note: Patient alert and oriented x 4, c/o pleuritic chest pain that worsen during breathing , VSS, EKG normal, MD notified. New order received to admin Oxycodone .
[2023-07-15] MEDS: cefTRIAXone sodium 1 GM in 0.9 % Sodium Chloride 50 ML IV (04:58)
[2023-07-15 06:29] LABS: MANUAL DIFF FLAG NO
[2023-07-15 06:35] LABS: Basophils Percent Auto 0.1 % (0-2); Hematocrit 30.9 % (37.0-47.0); Hemoglobin 9.9 g/dl (12.0-16.0); Imm Gran Abs Auto 0.11 X10*3/uL (0.00-0.03); Imm Gran Pct Auto 1.5 % (0.0-0.4); Lymphocytes Absolute Auto 0.4 X10*3/uL (1.2-4.9); Mean Corpuscular Hemoglobin 30.2 pg (27.0-33.0); Mean Corpuscular Volume 94.2 fL (80.0-98.0); Mean Platelet Volume 11.9 fL (9.4-12.3); Monocytes Absolute Auto 0.3 X10*3/uL (0.1-1.2); Monocytes Percent Auto 4.5 % (2-11); NRBC Pct Auto 0.4 /100WBC (0.0-0.2); Neutrophils Absolute Auto 6.4 x10*3/uL (2.0-8.3); Neutrophils Percent Auto 88.9 % (45-73); Platelet Count 164 X10*3/uL (160-400); Red Blood Count 3.28 X10*6/uL (4.20-5.50); Red Cell Distribution Width 17.4 % (11.0-16.0); White Blood Count 7.2 X10*3/uL (4.8-10.8)
[2023-07-15 07:22] LABS: Alanine Aminotransferase 40 U/L (0-31); Albumin Level 3.1 g/dL (3.5-5.0); Alkaline Phosphatase 75 U/L (39-117); Anion Gap 12 (12-20); Aspartate Amino Transferase 24 U/L (5-31); Bilirubin Total 0.3 mg/dL (0.0-1.0); Blood Urea Nitrogen 13 mg/dL (9-16); Calcium 8.4 mg/dL (8.4-10.2); Carbon Dioxide 16 mmol/L (22-29); Chloride 114 mmol/L (96-108); Creatinine Clr Calc Pharmacy 109.9; Estimated Glomerular Filt Rate > 60; Glucose Random 184 mg/dL (60-115); Potassium 4.4 mmol/L (3.3-5.1); Sodium 138 mmol/L (135-145); Total Protein 6.4 g/dL (6.5-8.0)
[2023-07-15] MEDS: vancomycin HCL 1,500 MG in 0.9 % Sodium Chloride 500 ML 333.33 MG IV (08:59)
[2023-07-15] MEDS: predniSONE 20 MG TABLET 40 MG PO (08:59)
[2023-07-15] MEDS: Bictegrav/Emtricit/Tenofov Ala TABLET 1 TAB PO (08:59)
[2023-07-15] MEDS: 0.9 % Sodium Chloride Flush 3 ML SYRINGE IVFLUSH ×3 (09:17→20:07)
--- NOTE | 2023-07-15 09:49 | PHA.PROG ---
Admission Date/Time: July 14, 2023 23:03 Indication: RESPIRATORY/SEPSIS Weight in k.967 kg Adjusted body weight in K.167 [place] body weight in Kg: Obesity Dosing Indication % IBW: Serum Creatinine - Last 168 Hours 07/14/23 07/15/23 20:54 06:23 Creatinine 0.84 0.69 Estimated CrCl and GFR - Last 168 Hours 07/14/23 07/15/23 20:54 06:23 Estim Creat Clear Calc 90.3 109.9 Estimated GFR > 60 > 60 Vancomycin Loading Dose: 1500 MG Current Vancomycin Dosing Regimen: 750 Q8 Vancomycin Monitoring using AUC goal of 400 - 600 range with trough as surrogate marker: 446 Date and Time for next Vancomycin Level to be drawn: 07/16 @0700 Pharmacist Comments on Vancomycin Plan: Vancomycin dosing will take advantage of [employer] as a clinical decision support tool that uses Bayesian modeling to calculate individual patient's pharmacokinetic parameters and forecast the patient's drug concentration time course with the target goal AUC 24 range of 400 - 600 mg/L/hr.
[2023-07-15] MEDS: cefEPime HCl 2 GM in 0.9 % Sodium Chloride 50 ML IV ×3 (10:14→22:59)
[2023-07-15] MEDS: Fluticasone/Vilanterol 200/25 BLST.W.DEV 1 PUFF INHALE (10:15)
--- NOTE | 2023-07-15 12:29 | MHC.CM.PN ---
CM ATTEMPTED TO CONTACT PT ON PT'S CELL AT 12:29 D/T COVID +, NO ANSWER AND DETAILED MESSAGE LEFT W/CM CALL BACK NUMBER, CM TO REVISIT.
--- NOTE | 2023-07-15 13:03 | HO.PM.IMPN ---
Subjective Subjective Date of Service: 07/15/23 Interval History: Feels better than admission. Recently discharged returns worsening shortness of breath over last several days. Review of Systems Denies chest pain Admits shortness of breath with minimal exertion Denies nausea vomiting diarrhea Denies fever chills Physical Exam Vital Signs: Vital Signs: Last Vital Signs Temp 97.5 F 07/15/23 11:19 Pulse 56 07/15/23 11:19 Resp 16 07/15/23 11:19 BP 104/58 L 07/15/23 11:19 Pulse Ox 96 07/15/23 11:19 O2 Del Method Room Air 07/15/23 11:19 BMI result Body Mass Index 21.0 Objective Data Active Medications Acetaminophen (Acetaminophen 325 Mg Tablet) 650 mg PO Q6H PRN PRN Reason: Pain, Mild (Pain Scale 1-3) Last Admin: 07/15/23 00:59 Dose: 650 mg Documented By: BAY Albuterol Sulfate (Albuterol Sulfate 90 Mcg 8 Gm Inhaler) 2 puff INHALE Q4H PRN PRN Reason: Shortness Of Breath Or Wheezing Atovaquone (Atovaquone 750 Mg/5 Ml Oral.Susp) 750 mg PO BID [facility] Last Admin: 07/15/23 08:59 Dose: 750 mg Documented By: TEOFILO Bictegravir/Emtricitabine/Tenofovir (Bictegrav/Emtricit/Tenofov Ala Tablet) 1 tab PO DAILY [facility] Last Admin: 07/15/23 08:59 Dose: 1 tab Documented By: TEOFILO Docusate Sodium (Docusate Sodium 100 Mg Capsule) 100 mg PO DAILY PRN PRN Reason: Constipation Enoxaparin Sodium (Enoxaparin Sodium 40 Mg/0.4 Ml Syringe) 40 mg SUBCUT Q24H [facility] Last Admin: 07/14/23 23:53 Dose: 40 mg Documented By: BAY Fluticasone/Vilanterol (Fluticasone/Vilanterol 200/25 Blst.W.Dev) 1 puff INHALE RDAILY [facility] Last Admin: 07/15/23 10:15 Dose: 1 puff Documented By: TEOFILO Cefepime HCl 2 gm/ Sodium (Chloride) 50 mls @ 100 mls/hr IV Q8H [facility] Last Infusion: 07/15/23 10:48 Dose: 0 mls/hr Documented By: TEOFILO Vancomycin HCl 750 mg/ Sodium (Chloride) 265 mls @ 265 mls/hr IV Q8H [facility] Nicotine (Nicotine 14 Mg Patch.Td24) 14 mg TRANSDERMA Q24H [facility] Last Admin: 07/14/23 23:54 Dose: 14 mg Documented By: BAY Non-Formulary Medication (Ethambutol) 1,200 mg PO DAILY [facility] Ondansetron HCl (Ondansetron Hcl 4 Mg/2 Ml Vial) 4 mg IVPUSH Q8H PRN PRN Reason: Nausea and Vomiting Oxycodone HCl (Oxycodone Hcl Immed Release 5 Mg Tablet) 5 mg PO Q4H PRN PRN Reason: Pain, Severe (Pain Scale 7-10) Last Admin: 07/15/23 08:59 Dose: 5 mg Documented By: TEOFILO Pharmacy Consult (Consult Rx Vancomycin Dosing) 1 each MISCELLANE DAILY PRN PRN Reason: Consult order Prednisone (Prednisone 20 Mg Tablet) 40 mg PO DAILY [facility] Last Admin: 07/15/23 08:59 Dose: 40 mg Documented By: TEOFILO Sodium Chloride (0.9 % Sodium Chloride Flush 3 Ml Syringe) 3 ml IVFLUSH QSHIFT [facility] Last Admin: 07/15/23 09:17 Dose: 3 ml Documented By: TEOFILO Labs 07/15/23 06:23 07/15/23 06:23 Labs: Laboratory Results - last 24 hr 07/14/23 07/14/23 07/14/23 18:42 20:36 20:36 MCV MCH MCHC RDW Plt Count MPV Immature Gran % (Auto) Neut % (Auto) Lymph % (Auto) [place] % (Auto) Eos % (Auto) Baso % (Auto) Lymph # (Auto) [place] # (Auto) Eos # (Auto) Baso # (Auto) Abs Immat Gran (auto) Absolute Neuts (auto) Absolute Nucleated RBC Nucleated RBC % (auto) Neutrophils % (Manual) Band Neutrophils % Lymphocytes % (Manual) Monocytes % (Manual) Abs Neuts (Manual) Lymphocytes # (Manual) Monocytes # (Manual) Platelet Estimate Large Platelets Plt Morphology Comment RBC Morphology Polychromasia Hypochromasia Microcytosis Macrocytosis ESR 36 H PT INR D-Dimer High Sensitivty Anion Gap Estim Creat Clear Calc Estimated GFR Random Glucose Lactic Acid Calcium Magnesium Total Bilirubin Direct Bilirubin AST ALT Alkaline Phosphatase C-Reactive Protein Total Protein Albumin Urine Color Yellow Urine Appearance Clear Urine pH 6.0 Ur Specific [place] <= 1.005 Urine Protein Negative Urine Glucose (UA) Negative Urine Ketones Negative Urine Blood Negative Urine Nitrite Negative Ur Leukocyte Esterase Negative Influenza Type A (PCR) NEGATIVE Influenza Type B (PCR) NEGATIVE RSV RNA Qual (PCR) NEGATIVE SARS-CoV-2 RNA (RT-PCR) NEGATIVE 07/14/23 07/14/23 07/14/23 20:36 20:36 20:54 MCV 93.5 MCH 30.7 MCHC 32.8 RDW 17.2 H Plt Count 169 D MPV 12.8 H Immature Gran % (Auto) Cancelled Neut % (Auto) Cancelled Lymph % (Auto) Cancelled [place] % (Auto) Cancelled Eos % (Auto) Cancelled Baso % (Auto) Cancelled Lymph # (Auto) Cancelled [place] # (Auto) Cancelled Eos # (Auto) Cancelled Baso # (Auto) Cancelled Abs Immat Gran (auto) Cancelled Absolute Neuts (auto) Cancelled Absolute Nucleated RBC 0.080 H Nucleated RBC % (auto) 1.0 H Neutrophils % (Manual) 82 H Band Neutrophils % 0 L Lymphocytes % (Manual) 10 L Monocytes % (Manual) 8 Abs Neuts (Manual) 6.4 Lymphocytes # (Manual) 0.8 L Monocytes # (Manual) 0.6 Platelet Estimate NORMAL Large Platelets PRESENT Plt Morphology Comment NOTED RBC Morphology NOTED Polychromasia 1+ (0-2) Hypochromasia 1+ (5-14) Microcytosis 1+ (5-14) Macrocytosis 1+ (5-14) ESR PT 11.8 INR 1.0 D-Dimer High Sensitivty 442 Anion Gap Estim Creat Clear Calc Estimated GFR Random Glucose Lactic Acid 0.8 Calcium Magnesium Total Bilirubin Direct Bilirubin AST ALT Alkaline Phosphatase C-Reactive Protein Total Protein Albumin Urine Color Urine Appearance Urine pH Ur Specific [place] Urine Protein Urine Glucose (UA) Urine Ketones Urine Blood Urine Nitrite Ur Leukocyte Esterase Influenza Type A (PCR) Influenza Type B (PCR) RSV RNA Qual (PCR) SARS-CoV-2 RNA (RT-PCR) 07/14/23 07/15/23 07/15/23 20:54 06:23 06:23 MCV 94.2 MCH 30.2 MCHC 32.0 RDW 17.4 H Plt Count 164 MPV 11.9 Immature Gran % (Auto) 1.5 H Neut % (Auto) 88.9 H Lymph % (Auto) 5.0 L [place] % (Auto) 4.5 Eos % (Auto) 0.0 Baso % (Auto) 0.1 Lymph # (Auto) 0.4 L [place] # (Auto) 0.3 Eos # (Auto) 0.0 Baso # (Auto) 0.0 Abs Immat Gran (auto) 0.11 H Absolute Neuts (auto) 6.4 Absolute Nucleated RBC 0.030 H Nucleated RBC % (auto) 0.4 H Neutrophils % (Manual) Band Neutrophils % Lymphocytes % (Manual) Monocytes % (Manual) Abs Neuts (Manual) Lymphocytes # (Manual) Monocytes # (Manual) Platelet Estimate Large Platelets Plt Morphology Comment RBC Morphology Polychromasia Hypochromasia Microcytosis Macrocytosis ESR PT INR D-Dimer High Sensitivty Anion Gap 10 L 12 Estim Creat Clear Calc 90.3 109.9 Estimated GFR > 60 > 60 Random Glucose 89 184 H Lactic Acid Calcium 7.8 L D 8.4 D Magnesium 1.2 L* 2.0 Total Bilirubin 0.5 0.3 Direct Bilirubin 0.2 AST 24 24 ALT 37 H 40 H Alkaline Phosphatase 75 75 C-Reactive Protein 5.12 H Total Protein 5.8 L 6.4 L Albumin 2.8 L 3.1 L Urine Color Urine Appearance Urine pH Ur Specific [place] Urine Protein Urine Glucose (UA) Urine Ketones Urine Blood Urine Nitrite Ur Leukocyte Esterase Influenza Type A (PCR) Influenza Type B (PCR) RSV RNA Qual (PCR) SARS-CoV-2 RNA (RT-PCR) Assessment and Plan (1) Sepsis: Status: Acute (2) Hypomagnesemia: Status: Acute (3) Lung mass: Status: Acute Plan [id number] female recently discharged from [facility] after being treated for bronchiectasis with past medical history of AIDS/HIV, comes into the hospital shortness of breath ; repeat CT scan this a.m. demonstrates a rapid increase in the size of the right parahilar opacity with surrounding ground-glass infiltrate. 1.Sepsis secondary worsening pneumonia - broadly covered with vanco Zosyn; on atovaquone - has history of MAC infection - CT scan demonstrates worsening perihilar infiltrates -thoracic consult 2.Hypo magnesemia,hypokalemia - repleted - follow renal cyst I have Anthony's 3.MAC infection - continue ethambutol, atovaquone 4. AIDS -continue outpatient therapies - will will add azithromycin DVT prophylaxis: Lovenox Full code Patient requires ongoing hospitalization for IV antibiotics to treat worsening infiltrate Time Spent With Patient Time: Total time managing care of this patient today ____ minutes. Quality Stroke Does the patient have a stroke diagnosis?: No VTE Prior VTE?: No VTE Risk Level:: Medical - moderate - high VTE Device Contraindication: Treatment Not Indicated VTE Drug Contraindication: N/A - Med Ordered
--- NOTE | 2023-07-15 14:56 | MHC.CM.PN ---
EMR REVIEWED, PT READMITTED W/SEPSIS AND CAP, CM MET W/PT WHO REPORTS SHE LIVES 2 SMALL CHILDREN, IS INDEP W/ALL CARE, DENIES USE OF DME/SERVICES. PT'S GOAL IS TO RETURN HOME W/NO SERVICES ON D/C. PT REPORTS HER PCP IS ODELL SHERWOOD NOT AMBREEN CARDENAS, PT DENIES RECEIVING ANY COVID VACCINES AND EDUCATED ON AND DECLINES TO COMPLETE A HCP AT THIS TIME. DCP: HOME NO SERVICES W/FAMILY FOR TRANSPORT
[2023-07-15] MEDS: vancomycin HCL 750 MG in 0.9 % Sodium Chloride 250 ML 265 MG IV (16:48)
--- NOTE | 2023-07-15 17:50 | HO.THORCON_ITS ---
History of Present Illness Consult details Consult date: 07/15/23 Narrative: Patient is a 32-year-old female with a plethora of medical problems and a very complicated past medical history. She presents here for evaluation of a dry cough. This been going on for least 1 weeks time. Patient has had extensive workup for her pulmonary issues in September of last fall (2021) at [facility] which patient states includes several bronchoscopies and biopsies. According to hospitalist's note, she is being treated for a mycobacterium infection. Consult was for thoracic surgery evaluation for bilateral hilar fullness. Chart and x-rays was reviewed patient evaluated. 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 Surgical History Surgical History History of appendectomy Tubal ligation status Social History Social History Household Members: Children Housing: Apartment Do you presently have visiting nurse or other home services: No Alcohol intake: never Patient Tobacco Use Status: Current everyday Tobacco user Tobacco use type: Cigarette e-Cigarette/Vaping Use: Never Used Second Hand Smoke Exposure: No Substance Use Type: Marijuana service: No Meds Allergies Allergy/AdvReac Type Severity Reaction Status Date / Time sulfamethoxazole Allergy Severe SWELLING Verified 07/18/22 09:02 [From BACTRIM] trimethoprim [From BACTRIM] Allergy Severe SWELLING Verified 07/18/22 09:02 Sulfa (Sulfonamide Allergy Unknown Unknown Verified 07/18/22 09:02 Antibiotics) Active Medications: Current Medications Acetaminophen (Acetaminophen 325 Mg Tablet) 650 mg PO Q6H PRN PRN Reason: Pain, Mild (Pain Scale 1-3) Last Admin: 07/15/23 00:59 Dose: 650 mg Albuterol Sulfate (Albuterol Sulfate 90 Mcg 8 Gm Inhaler) 2 puff INHALE Q4H PRN PRN Reason: Shortness Of Breath Or Wheezing Atovaquone (Atovaquone 750 Mg/5 Ml Oral.Susp) 750 mg PO BID AIDA Last Admin: 07/15/23 08:59 Dose: 750 mg Bictegravir/Emtricitabine/Tenofovir (Bictegrav/Emtricit/Tenofov Ala Tablet) 1 tab PO DAILY [facility] Last Admin: 07/15/23 08:59 Dose: 1 tab Docusate Sodium (Docusate Sodium 100 Mg Capsule) 100 mg PO DAILY PRN PRN Reason: Constipation Enoxaparin Sodium (Enoxaparin Sodium 40 Mg/0.4 Ml Syringe) 40 mg SUBCUT Q24H [facility] Last Admin: 07/14/23 23:53 Dose: 40 mg Fluticasone/Vilanterol (Fluticasone/Vilanterol 200/25 Blst.W.Dev) 1 puff INHALE RDAILY [facility] Last Admin: 07/15/23 10:15 Dose: 1 puff Cefepime HCl 2 gm/ Sodium (Chloride) 50 mls @ 100 mls/hr IV Q8H [facility] Last Infusion: 07/15/23 16:28 Dose: Infused Vancomycin HCl 750 mg/ Sodium (Chloride) 265 mls @ 265 mls/hr IV Q8H [facility] Last Admin: 07/15/23 16:48 Dose: 265 mls/hr Nicotine (Nicotine 14 Mg Patch.Td24) 14 mg TRANSDERMA Q24H [facility] Last Admin: 07/14/23 23:54 Dose: 14 mg Non-Formulary Medication (Ethambutol) 1,200 mg PO DAILY [facility] Ondansetron HCl (Ondansetron Hcl 4 Mg/2 Ml Vial) 4 mg IVPUSH Q8H PRN PRN Reason: Nausea and Vomiting Oxycodone HCl (Oxycodone Hcl Immed Release 5 Mg Tablet) 5 mg PO Q4H PRN PRN Reason: Pain, Severe (Pain Scale 7-10) Last Admin: 07/15/23 16:47 Dose: 5 mg Pharmacy Consult (Consult Rx Vancomycin Dosing) 1 each MISCELLANE DAILY PRN PRN Reason: Consult order Prednisone (Prednisone 20 Mg Tablet) 40 mg PO DAILY [facility] Last Admin: 07/15/23 08:59 Dose: 40 mg Sodium Chloride (0.9 % Sodium Chloride Flush 3 Ml Syringe) 3 ml IVFLUSH QSHIFT [facility] Last Admin: 07/15/23 16:47 Dose: 3 ml Home Medications Medication Instructions Recorded Confirmed Last Taken Type albuterol sulfate 90 mcg/actuation 2 puff inhalation Q4H PRN 07/18/22 07/14/23 07/14/23 History aerosol inhaler (ProAir HFA) Shortness Of Breath Or Wheezing bictegravir 50 mg-emtricitabine 1 tab PO DAILY 07/18/22 07/14/23 07/14/23 History 200 mg-tenofovir alafenam 25 mg tablet (Biktarvy) atovaquone 750 mg/5 mL oral 750 mg PO BID 07/09/23 07/14/23 07/14/23 History suspension budesonide-formoterol HFA 160 2 puff inhalation BID 07/09/23 07/14/23 07/14/23 History mcg-4.5 mcg/actuation aerosol inhaler (Symbicort) ethambutol 400 mg tablet 1,200 mg PO DAILY 07/09/23 07/14/23 07/14/23 History Physical Exam Vital Signs: Vital Signs: Last Vital Signs Temp 97.0 F 07/15/23 15:39 Pulse 72 07/15/23 15:39 Resp 16 07/15/23 15:39 BP 117/57 L 07/15/23 15:39 Pulse Ox 96 07/15/23 15:39 O2 Del Method Room Air 07/15/23 15:39 BMI result Body Mass Index 21.0 Const: Other: Patient in no acute distress sitting comfortably in bed. Chest: Other: Chest breath sounds bilaterally. GI: Other: Abdomen soft, benign. Results Labs 07/15/23 06:23 07/15/23 06:23 Labs: Abnormal lab results 07/14/23 07/14/23 07/14/23 Range/Units 20:36 20:54 20:54 RBC 2.77 L (4.20-5.50) X10*6/uL Hgb 8.5 L (12.0-16.0) g/dl Hct 25.9 L (37.0-47.0) % RDW 17.2 H (11.0-16.0) % MPV 12.8 H (9.4-12.3) fL Immature Gran % (Auto) (0.0-0.4) % Neut % (Auto) (45-73) % Lymph % (Auto) (20-40) % Lymph # (Auto) (1.2-4.9) X10*3/uL Abs Immat Gran (auto) (0.00-0.03) X10*3/uL Absolute Nucleated RBC 0.080 H (0.0-0.012) X10*3/uL Nucleated RBC % (auto) 1.0 H (0.0-0.2) /100WBC Neutrophils % (Manual) 82 H (45-73) % Band Neutrophils % 0 L (3-5) % Lymphocytes % (Manual) 10 L (20-40) % Lymphocytes # (Manual) 0.8 L (1.2-4.9) X10*3/uL ESR 36 H (0-20) MM/HR Potassium 2.7 L D (3.3-5.1) mmol/L Chloride 112 H (96-108) mmol/L Carbon Dioxide 17 L (22-29) mmol/L Anion Gap 10 L (12-20) BUN 17 H (9-16) mg/dL Random Glucose (60-115) mg/dL Calcium 7.8 L D (8.4-10.2) mg/dL Magnesium 1.2 L* (1.6-2.6) mg/dL ALT 37 H (0-31) U/L C-Reactive Protein 5.12 H (< or = 0.50) mg/dL Total Protein 5.8 L (6.5-8.0) g/dL Albumin 2.8 L (3.5-5.0) g/dL 07/15/23 07/15/23 Range/Units 06:23 06:23 RBC 3.28 L (4.20-5.50) X10*6/uL Hgb 9.9 L (12.0-16.0) g/dl Hct 30.9 L (37.0-47.0) % RDW 17.4 H (11.0-16.0) % MPV (9.4-12.3) fL Immature Gran % (Auto) 1.5 H (0.0-0.4) % Neut % (Auto) 88.9 H (45-73) % Lymph % (Auto) 5.0 L (20-40) % Lymph # (Auto) 0.4 L (1.2-4.9) X10*3/uL Abs Immat Gran (auto) 0.11 H (0.00-0.03) X10*3/uL Absolute Nucleated RBC 0.030 H (0.0-0.012) X10*3/uL Nucleated RBC % (auto) 0.4 H (0.0-0.2) /100WBC Neutrophils % (Manual) (45-73) % Band Neutrophils % (3-5) % Lymphocytes % (Manual) (20-40) % Lymphocytes # (Manual) (1.2-4.9) X10*3/uL ESR (0-20) MM/HR Potassium (3.3-5.1) mmol/L Chloride 114 H (96-108) mmol/L Carbon Dioxide 16 L (22-29) mmol/L Anion Gap (12-20) BUN (9-16) mg/dL Random Glucose 184 H (60-115) mg/dL Calcium (8.4-10.2) mg/dL Magnesium (1.6-2.6) mg/dL ALT 40 H (0-31) U/L C-Reactive Protein (< or = 0.50) mg/dL Total Protein 6.4 L (6.5-8.0) g/dL Albumin 3.1 L (3.5-5.0) g/dL Short CBC 07/14/23 07/15/23 Range/Units 20:54 06:23 WBC 7.8 7.2 (4.8-10.8) X10*3/uL Hgb 8.5 L 9.9 L (12.0-16.0) g/dl Hct 25.9 L 30.9 L (37.0-47.0) % Plt Count 169 D 164 (160-400) X10*3/uL BMP 07/14/23 07/15/23 20:54 06:23 Sodium 136 138 Potassium 2.7 L D 4.4 D Chloride 112 H 114 H Carbon Dioxide 17 L 16 L BUN 17 H 13 Creatinine 0.84 0.69 Calcium 7.8 L D 8.4 D Liver Function 07/14/23 07/15/23 Range/Units 20:54 06:23 Total Bilirubin 0.5 0.3 (0.0-1.0) mg/dL Direct Bilirubin 0.2 (0.0-0.5) mg/dL AST 24 24 (5-31) U/L ALT 37 H 40 H (0-31) U/L Alkaline Phosphatase 75 75 (39-117) U/L Albumin 2.8 L 3.1 L (3.5-5.0) g/dL Urine 07/14/23 Range/Units 18:42 Urine Color Yellow Urine Appearance Clear Urine pH 6.0 (5.0-9.0) Ur Specific [place] <= 1.005 (1.005-1.025) Urine Protein Negative (Neg-Trace) mg/dL Urine Glucose (UA) Negative (Negative) mg/dL All other labs normal. Assessment and Plan (1) Bronchiectasis: Status: Acute (2) Acute febrile illness: Status: Acute Plan At The present time, no acute thoracic surgical issues. Consider pulmonary consultation as well as obtaining records and x-ray/CT scan results from [facility] for comparison. Time Spent With Patient Time: Total time managing care of this patient today ____ minutes. Procedures Date of Service Date of Service: 07/15/23
--- NOTE | 2023-07-15 23:19 | P.CNID_ITS ---
History of Present Illness Data of Consult Service Date: 07/15/23 Requesting physician: Juaquin Chery Primary Care Provider: Ismael Wei MD HPI Reason for consult: pleuritic chest pain She just left hospital and comes back with pleuritic chest pain. She reports fever HIV viral load is 548,000 and CD4 count less than 20 on 07/09/2023. 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 Family History Family history: reviewed and not pertinent Surgical History Surgical History History of appendectomy Tubal ligation status Social History Social History Household Members: Children Housing: Apartment Do you presently have visiting nurse or other home services: No Alcohol intake: never Patient Tobacco Use Status: Current everyday Tobacco user Tobacco use type: Cigarette e-Cigarette/Vaping Use: Never Used Second Hand Smoke Exposure: No Substance Use Type: Marijuana service: No Meds Allergies Allergy/AdvReac Type Severity Reaction Status Date / Time sulfamethoxazole Allergy Severe SWELLING Verified 07/18/22 09:02 [From BACTRIM] trimethoprim [From BACTRIM] Allergy Severe SWELLING Verified 07/18/22 09:02 Sulfa (Sulfonamide Allergy Unknown Unknown Verified 07/18/22 09:02 Antibiotics) Active Medications: Current Medications Acetaminophen (Acetaminophen 325 Mg Tablet) 650 mg PO Q6H PRN PRN Reason: Pain, Mild (Pain Scale 1-3) Last Admin: 07/15/23 20:12 Dose: 650 mg Albuterol Sulfate (Albuterol Sulfate 90 Mcg 8 Gm Inhaler) 2 puff INHALE Q4H PRN PRN Reason: Shortness Of Breath Or Wheezing Atovaquone (Atovaquone 750 Mg/5 Ml Oral.Susp) 750 mg PO BID AIDA Last Admin: 07/15/23 20:04 Dose: 750 mg Bictegravir/Emtricitabine/Tenofovir (Bictegrav/Emtricit/Tenofov Ala Tablet) 1 tab PO DAILY [facility] Last Admin: 07/15/23 08:59 Dose: 1 tab Docusate Sodium (Docusate Sodium 100 Mg Capsule) 100 mg PO DAILY PRN PRN Reason: Constipation Enoxaparin Sodium (Enoxaparin Sodium 40 Mg/0.4 Ml Syringe) 40 mg SUBCUT Q24H [facility] Last Admin: 07/15/23 23:00 Dose: Not Given Fluticasone/Vilanterol (Fluticasone/Vilanterol 200/25 Blst.W.Dev) 1 puff INHALE RDAILY [facility] Last Admin: 07/15/23 10:15 Dose: 1 puff Cefepime HCl 2 gm/ Sodium (Chloride) 50 mls @ 100 mls/hr IV Q8H [facility] Last Admin: 07/15/23 22:59 Dose: 100 mls/hr Vancomycin HCl 750 mg/ Sodium (Chloride) 265 mls @ 265 mls/hr IV Q8H [facility] Last Infusion: 07/15/23 18:01 Dose: Infused Nicotine (Nicotine 14 Mg Patch.Td24) 14 mg TRANSDERMA Q24H [facility] Last Admin: 07/15/23 22:59 Dose: Not Given Pt Own (Ethambutol (400 Mg Tablet)) 1,200 mg PO DAILY [facility] Last Admin: 07/15/23 20:04 Dose: 1,200 mg Ondansetron HCl (Ondansetron Hcl 4 Mg/2 Ml Vial) 4 mg IVPUSH Q8H PRN PRN Reason: Nausea and Vomiting Oxycodone HCl (Oxycodone Hcl Immed Release 5 Mg Tablet) 5 mg PO Q4H PRN PRN Reason: Pain, Severe (Pain Scale 7-10) Last Admin: 07/15/23 16:47 Dose: 5 mg Pharmacy Consult (Consult Rx Vancomycin Dosing) 1 each MISCELLANE DAILY PRN PRN Reason: Consult order Prednisone (Prednisone 20 Mg Tablet) 40 mg PO DAILY [facility] Last Admin: 07/15/23 08:59 Dose: 40 mg Sodium Chloride (0.9 % Sodium Chloride Flush 3 Ml Syringe) 3 ml IVFLUSH QSHIFT [facility] Last Admin: 07/15/23 20:07 Dose: 3 ml Home Medications Medication Instructions Recorded Confirmed Last Taken Type albuterol sulfate 90 mcg/actuation 2 puff inhalation Q4H PRN 07/18/22 07/14/23 07/14/23 History aerosol inhaler (ProAir HFA) Shortness Of Breath Or Wheezing bictegravir 50 mg-emtricitabine 1 tab PO DAILY 07/18/22 07/14/23 07/14/23 History 200 mg-tenofovir alafenam 25 mg tablet (Biktarvy) atovaquone 750 mg/5 mL oral 750 mg PO BID 07/09/23 07/14/23 07/14/23 History suspension budesonide-formoterol HFA 160 2 puff inhalation BID 07/09/23 07/14/23 07/14/23 History mcg-4.5 mcg/actuation aerosol inhaler (Symbicort) ethambutol 400 mg tablet 1,200 mg PO DAILY 07/09/23 07/14/23 07/14/23 History Physical Exam Vital Signs: Vital Signs: Last Vital Signs Temp 97.5 F 07/15/23 20:00 Pulse 56 07/15/23 20:00 Resp 18 07/15/23 20:00 BP 107/58 L 07/15/23 20:00 Pulse Ox 99 07/15/23 20:00 O2 Del Method Room Air 07/15/23 20:00 BMI result Body Mass Index 21.0 Const: General: cooperative HEENT: Head: Yes normal to inspection Face and sinus: Yes normal facial exam Mouth: Normal oral and palatal mucosa present Teeth and gingiva: dentition normal Eyes: General: appearance normal, both eyes and all related structures Pupils: Equal, round and reactive pupils present Resp: Effort & Inspection: normal respiratory effort Cardio: Rate: regular rate Rhythm: regular rhythm GI: Palpation (GI): Soft to palpation and nontender : General: Yes no CVA tenderness Back/Spine/Pelvis: Back: no CVA tenderness Skin: General skin exam: no rashes or lesions noted Neuro: General: moves all extremities Cranial nerves: Yes Equal, round and reactive pupils present Extrem: General: Yes normal to inspection Psych: Appearance: grossly normal Results Labs 07/15/23 06:23 07/15/23 06:23 Labs: Short CBC 07/15/23 Range/Units 06:23 WBC 7.2 (4.8-10.8) X10*3/uL Hgb 9.9 L (12.0-16.0) g/dl Hct 30.9 L (37.0-47.0) % Plt Count 164 (160-400) X10*3/uL BMP 07/15/23 06:23 Sodium 138 Potassium 4.4 D Chloride 114 H Carbon Dioxide 16 L BUN 13 Creatinine 0.69 Calcium 8.4 D Liver Function 07/15/23 Range/Units 06:23 Total Bilirubin 0.3 (0.0-1.0) mg/dL AST 24 (5-31) U/L ALT 40 H (0-31) U/L Alkaline Phosphatase 75 (39-117) U/L Albumin 3.1 L (3.5-5.0) g/dL Microbiology Microbiology Results: Microbiology 07/14/23 20:36 Blood - Venous Blood Culture - Preliminary No growth after 24 hours. 07/14/23 20:36 Blood - Venous Blood Culture - Preliminary No growth after 24 hours. Assessment and Plan (1) Lung mass: Status: Acute (2) CAP (community acquired pneumonia): Status: Acute (3) Sepsis: Status: Acute (4) AIDS: Status: Acute (5) Pulmonary Mycobacterium avium complex (MAC) infection: Status: Acute (6) IRIS (immune reconstitution inflammatory syndrome): Status: Acute Patient is having problems with IRIS since keeps starting and stopping med ication. She has AIDS and likely not taking Biktarvy at all. Plan Continue Biktarvy. Steroids with taper,60 mg daily to start Continue Zmax and Ethambutol Reinforce adherence, Time Spent With Patient Time: Total time managing care of this patient today ____ minutes.
[2023-07-16] VITALS (7 sets, daily range): BP systolic 104–119; BP diastolic 57–72; PULSE 51–89; RESP 16–20; TEMP 36.3–37; O2SAT 98–100
[2023-07-16] MEDS: vancomycin HCL 750 MG in 0.9 % Sodium Chloride 250 ML 265 MG IV ×3 (01:27→16:17)
[2023-07-16] MEDS: oxyCODONE HCl Immed Release 5 MG TABLET PO ×4 (01:40→21:53)
[2023-07-16] MEDS: cefEPime HCl 2 GM in 0.9 % Sodium Chloride 50 ML IV ×3 (06:24→22:56)
[2023-07-16 07:18] LABS: Eosinophils Percent Auto 0.1 % (0-4); Hematocrit 27.9 % (37.0-47.0); Hemoglobin 8.9 g/dl (12.0-16.0); Imm Gran Abs Auto 0.14 X10*3/uL (0.00-0.03); Imm Gran Pct Auto 1.6 % (0.0-0.4); Lymphocytes Absolute Auto 0.6 X10*3/uL (1.2-4.9); Lymphocytes Percent Auto 7.1 % (20-40); MANUAL DIFF FLAG SCAN; Mean Corpuscular HGB Conc 31.9 g/dl (31.0-35.0); Mean Corpuscular Hemoglobin 30.3 pg (27.0-33.0); Mean Corpuscular Volume 94.9 fL (80.0-98.0); Mean Platelet Volume 12.8 fL (9.4-12.3); Monocytes Absolute Auto 0.6 X10*3/uL (0.1-1.2); Monocytes Percent Auto 7.2 % (2-11); NRBC Pct Auto 0.2 /100WBC (0.0-0.2); Neutrophils Absolute Auto 7.4 x10*3/uL (2.0-8.3); PLT CLUMP 1; Red Blood Count 2.94 X10*6/uL (4.20-5.50); Red Cell Distribution Width 17.9 % (11.0-16.0); SCAN SMEAR FLAG 1
[2023-07-16 07:20] LABS: White Blood Count 8.8 X10*3/uL (4.8-10.8)
[2023-07-16 07:21] LABS: Platelet Count 171 X10*3/uL (160-400); Vancomycin Random 16.8 mcg/mL (15-20)
[2023-07-16 07:22] LABS: Alanine Aminotransferase 25 U/L (0-31); Albumin Level 2.7 g/dL (3.5-5.0); Alkaline Phosphatase 66 U/L (39-117); Anion Gap 8 (12-20); Aspartate Amino Transferase 13 U/L (5-31); Bilirubin Total 0.3 mg/dL (0.0-1.0); Blood Urea Nitrogen 21 mg/dL (9-16); Calcium 8.3 mg/dL (8.4-10.2); Carbon Dioxide 18 mmol/L (22-29); Chloride 116 mmol/L (96-108); Creatinine Clr Calc Pharmacy 118.5; Estimated Glomerular Filt Rate > 60; Glucose Fasting 84 mg/dL (60-99); Potassium 3.8 mmol/L (3.3-5.1); Sodium 138 mmol/L (135-145); Total Protein 5.5 g/dL (6.5-8.0)
--- NOTE | 2023-07-16 07:37 | HE.PHANOTE ---
Re: vanco dosing Renal function stable and trough therapeutic at 16.8. Continue current regimen and recheck scr, trough again 07/17 @0700
[2023-07-16 07:51] LABS: SLIDE REVIEW VERIFIED
[2023-07-16] MEDS: Fluticasone/Vilanterol 200/25 BLST.W.DEV 1 PUFF INHALE (08:26)
[2023-07-16] MEDS: predniSONE 20 MG TABLET 40 MG PO (09:10)
[2023-07-16] MEDS: Atovaquone 750 MG/5 ML ORAL.SUSP PO ×2 (09:10→21:51)
[2023-07-16] MEDS: Bictegrav/Emtricit/Tenofov Ala TABLET 1 TAB PO (09:10)
[2023-07-16] MEDS: 0.9 % Sodium Chloride Flush 3 ML SYRINGE IVFLUSH ×2 (09:13→16:18)
--- NOTE | 2023-07-16 11:55 | P.PNIM_ITS ---
Subjective Subjective Date of Service: 07/16/23 Interval History: Remains comfortable on room air. No acute issues overnight Review of Systems Denies chest pain Admits shortness of breath with minimal exertion Denies nausea vomiting diarrhea Denies fever chills Physical Exam Vital Signs: Vital Signs: Last Vital Signs Temp 98.4 F 07/16/23 11:04 Pulse 80 07/16/23 11:04 Resp 20 07/16/23 11:04 BP 104/57 L 07/16/23 11:04 Pulse Ox 100 07/16/23 11:04 O2 Del Method Room Air 07/16/23 11:04 BMI result Body Mass Index 21.0 Objective Data Active Medications Acetaminophen (Acetaminophen 325 Mg Tablet) 650 mg PO Q6H PRN PRN Reason: Pain, Mild (Pain Scale 1-3) Last Admin: 07/15/23 20:12 Dose: 650 mg Documented By: RAYMOND Albuterol Sulfate (Albuterol Sulfate 90 Mcg 8 Gm Inhaler) 2 puff INHALE Q4H PRN PRN Reason: Shortness Of Breath Or Wheezing Atovaquone (Atovaquone 750 Mg/5 Ml Oral.Susp) 750 mg PO BID [facility] Last Admin: 07/16/23 09:10 Dose: 750 mg Documented By: TEOFILO Bictegravir/Emtricitabine/Tenofovir (Bictegrav/Emtricit/Tenofov Ala Tablet) 1 tab PO DAILY [facility] Last Admin: 07/16/23 09:10 Dose: 1 tab Documented By: TEOFILO Docusate Sodium (Docusate Sodium 100 Mg Capsule) 100 mg PO DAILY PRN PRN Reason: Constipation Enoxaparin Sodium (Enoxaparin Sodium 40 Mg/0.4 Ml Syringe) 40 mg SUBCUT Q24H [facility] Last Admin: 07/15/23 23:00 Dose: Not Given Documented By: RAYMOND Non-Admin Reason: Patient Refused Fluticasone/Vilanterol (Fluticasone/Vilanterol 200/25 Blst.W.Dev) 1 puff INHALE RDAILY [facility] Last Admin: 07/16/23 08:26 Dose: 1 puff Documented By: SURAJ Cefepime HCl 2 gm/ Sodium (Chloride) 50 mls @ 100 mls/hr IV Q8H [facility] Last Infusion: 07/16/23 07:10 Dose: 0 mls/hr Documented By: RAYMOND Vancomycin HCl 750 mg/ Sodium (Chloride) 265 mls @ 265 mls/hr IV Q8H [facility] Last Infusion: 07/16/23 10:29 Dose: 0 mls/hr Documented By: TEOFILO Voriconazole 200 mg/ Sodium (Chloride) 100 mls @ 50 mls/hr IV Q12H [facility] Nicotine (Nicotine 14 Mg Patch.Td24) 14 mg TRANSDERMA Q24H [facility] Last Admin: 07/15/23 22:59 Dose: Not Given Documented By: RAYMOND Non-Admin Reason: Patient Refused Pt Own (Ethambutol (400 Mg Tablet)) 1,200 mg PO DAILY [facility] Last Admin: 07/16/23 09:10 Dose: 1,200 mg Documented By: TEOFILO Ondansetron HCl (Ondansetron Hcl 4 Mg/2 Ml Vial) 4 mg IVPUSH Q8H PRN PRN Reason: Nausea and Vomiting Oxycodone HCl (Oxycodone Hcl Immed Release 5 Mg Tablet) 5 mg PO Q4H PRN PRN Reason: Pain, Severe (Pain Scale 7-10) Last Admin: 07/16/23 11:52 Dose: 5 mg Documented By: TEOFILO Pharmacy Consult (Consult Rx Vancomycin Dosing) 1 each MISCELLANE DAILY PRN PRN Reason: Consult order Prednisone (Prednisone 20 Mg Tablet) 40 mg PO DAILY [facility] Last Admin: 07/16/23 09:10 Dose: 40 mg Documented By: TEOFILO Sodium Chloride (0.9 % Sodium Chloride Flush 3 Ml Syringe) 3 ml IVFLUSH QSHIFT [facility] Last Admin: 07/16/23 09:13 Dose: 3 ml Documented By: TEOFILO Labs 07/16/23 06:58 07/16/23 06:58 Labs: Laboratory Results - last 24 hr 07/16/23 07/16/23 07/16/23 06:58 06:58 06:58 MCV 94.9 MCH 30.3 MCHC 31.9 RDW 17.9 H Plt Count 171 MPV 12.8 H Immature Gran % (Auto) 1.6 H Neut % (Auto) 84.0 H Lymph % (Auto) 7.1 L [place] % (Auto) 7.2 Eos % (Auto) 0.1 Baso % (Auto) 0.0 Lymph # (Auto) 0.6 L [place] # (Auto) 0.6 Eos # (Auto) 0.0 Baso # (Auto) 0.0 Abs Immat Gran (auto) 0.14 H Absolute Neuts (auto) 7.4 Absolute Nucleated RBC 0.020 H Nucleated RBC % (auto) 0.2 Smear Tech's Comments VERIFIED Anion Gap 8 L Estim Creat Clear Calc 118.5 Estimated GFR > 60 Fasting Glucose 84 Calcium 8.3 L Total Bilirubin 0.3 AST 13 ALT 25 Alkaline Phosphatase 66 Total Protein 5.5 L Albumin 2.7 L Random Vancomycin 16.8 Microbiology Microbiology Results: Microbiology 07/14/23 20:36 Blood Culture - Preliminary Blood - Venous No growth after 24 hours. 07/14/23 20:36 Blood Culture - Preliminary Blood - Venous No growth after 24 hours. Assessment and Plan (1) Sepsis: Status: Acute (2) CAP (community acquired pneumonia): Status: Acute (3) Lung mass: Status: Acute Plan [id number] female recently discharged from [facility] after being treated for bronchiectasis with past medical history of AIDS/HIV, comes into the hospital shortness of breath ; repeat CT scan this a.m. demonstrates a rapid increase in the size of the right parahilar opacity with surrounding ground-glass infiltrate. 1.Sepsis secondary worsening pneumonia(Parahilar opacity) - broadly covered with vanco Zosyn; on atovaquone - has history of MAC infection - CT scan demonstrates worsening perihilar infiltrates -discussed with Pulmonary; recommend voriconazole 200 mg IV q.12 -to discuss with [facility] [facility] civil manager Dr. Hallman; had recent extensive workup including bronchoscopy with cultures 2.Hypo magnesemia,hypokalemia - repleted - follow renal and divalents 3.MAC infection - continue ethambutol, atovaquone 4. AIDS -continue outpatient therapies - will will add azithromycin DVT prophylaxis: Lovenox Full code Patient requires ongoing hospitalization for IV antibiotics to treat worsening infiltrate Time Spent With Patient Time: Total time managing care of this patient today ____ minutes. Quality Stroke Does the patient have a stroke diagnosis?: No VTE Prior VTE?: No VTE Risk Level:: Medical - moderate - high VTE Device Contraindication: Treatment Not Indicated VTE Drug Contraindication: N/A - Med Ordered
[2023-07-16] MEDS: Voriconazole 200 MG in 0.9 % Sodium Chloride 100 ML 50 MG IV (12:34)
--- NOTE | 2023-07-16 12:47 | P.CONPL_ITS ---
History of Present Illness History of Present Illness Consult date: 07/16/23 Chief complaint: Sepsis, PNA Narrative: This is an inpatient pulmonary consultation. 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 She was given Ceftin and was discharged home.? On day of discharge on the she had significant improvement of her respiratory status and was sent home.? She returns today reporting fever of 105, worsening shortness of breath, cough, and some sputum production.? She denies any chest pain, no abdominal pain, no nausea vomiting, no diarrhea constipation, no urinary symptoms and no lower extremity edema. The patient had a repeat CT scan of the chest which I did compared to her CT scan from [facility] back in 2021 and her most recent CT scan from last week. It appears that she has a interval worsening of the nodular density in the right upper lobe area with what appears to be a halo suggest the possibility of aspergillosis. The patient also has bronchiectasis and look still have airspace disease bilaterally. She is on broad-spectrum antibiotics. The patient did have bronchoscopy back in August 2022 but has not had any interventions since then. The patient should have a bronchoscopy at this point to better address her aggressive respiratory process. Unfortunately she cannot get a bronchoscopy today. Have to be early next week. For the recent will request blood work in start her on therapy to avoid delay of care. On further questioning the patient states that she is very adherent to her therapy and she cannot understand why she has not responded to her HIV therapy. Her CD4 count was also low back in 2021 when checked at [facility]. Patient's cultures from her bronchoscopy only positive for mycobacterium avium complex in no evidence of any mycobacteria tuberculosis. Unfortunately with her CD4 count mycobacterium avium complex can be very severe in people with AIDS where it can become disseminated. Review of Systems Review of Systems: Yes all other systems are reviewed and are negative Constitutional: Constitutional: Reports no additional constitutional complaints, Denies body ache(s), Reports chills, Reports fever(s), Denies headache(s) and Denies weakness Eyes: Eyes: Reports no additional eye complaints and Denies change in vision ENT: Reports system reviewed and no additional complaints, except as documented, Denies dizziness, Denies headache(s), Denies nasal congestion, Denies nasal discharge and Denies neck pain Cardiovascular: Cardiovascular: Reports no additional cardiovascular compla ints, Reports chest pain, Denies leg edema and Reports dyspnea Respiratory: Respiratory: Reports cough, Reports hemoptysis, Reports pain on inspiration, Reports pain with cough and Reports dyspnea Gastrointestinal: Gastrointestinal: Reports no additional gastrointestinal complaints, Denies abdominal pain, Denies diarrhea, Denies nausea and Denies vomiting Genitourinary: Genitourinary: Reports no additional female genitourinary complaints and Denies urinary incontinence Musculoskeletal: Musculoskeletal: Reports no additional musculoskeletal complaints, Denies back pain, Denies arthralgias, Denies joint swelling, Denies neck pain, Denies numbness and Denies tingling Integumentary/Breasts: Skin/Breast: Reports system reviewed and no additional complaints, except as docu and Denies rash Neurologic: Reports system reviewed and no additional complaints, except as documented, Denies Abnormal speech present, Denies dizziness, Denies headache(s), Denies numbness, Denies tingling and Denies weakness PMFSH Past Medical History Medical History Bronchiectasis CAP (community acquired pneumonia) Hidradenitis suppurativa HIV (human immunodeficiency virus infection) 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 Family History Family history: reviewed and not pertinent Surgical History Surgical History History of appendectomy Tubal ligation status Social History Social History Household Members: Children Housing: Apartment Do you presently have visiting nurse or other home services: No Alcohol intake: never Patient Tobacco Use Status: Current everyday Tobacco user Tobacco use type: Cigarette e-Cigarette/Vaping Use: Never Used Second Hand Smoke Exposure: No Substance Use Type: Marijuana service: No Meds Allergies Allergy/AdvReac Type Severity Reaction Status Date / Time sulfamethoxazole Allergy Severe SWELLING Verified 07/18/22 09:02 [From BACTRIM] trimethoprim [From BACTRIM] Allergy Severe SWELLING Verified 07/18/22 09:02 Sulfa (Sulfonamide Allergy Unknown Unknown Verified 07/18/22 09:02 Antibiotics) Active Medications: Current Medications Acetaminophen (Acetaminophen 325 Mg Tablet) 650 mg PO Q6H PRN PRN Reason: Pain, Mild (Pain Scale 1-3) Last Admin: 07/15/23 20:12 Dose: 650 mg Albuterol Sulfate (Albuterol Sulfate 90 Mcg 8 Gm Inhaler) 2 puff INHALE Q4H PRN PRN Reason: Shortness Of Breath Or Wheezing Atovaquone (Atovaquone 750 Mg/5 Ml Oral.Susp) 750 mg PO BID [facility] Last Admin: 07/16/23 09:10 Dose: 750 mg Bictegravir/Emtricitabine/Tenofovir (Bictegrav/Emtricit/Tenofov Ala Tablet) 1 tab PO DAILY [facility] Last Admin: 07/16/23 09:10 Dose: 1 tab Docusate Sodium (Docusate Sodium 100 Mg Capsule) 100 mg PO DAILY PRN PRN Reason: Constipation Enoxaparin Sodium (Enoxaparin Sodium 40 Mg/0.4 Ml Syringe) 40 mg SUBCUT Q24H [facility] Last Admin: 07/15/23 23:00 Dose: Not Given Fluticasone/Vilanterol (Fluticasone/Vilanterol 200/25 Blst.W.Dev) 1 puff INHALE RDAILY [facility] Last Admin: 07/16/23 08:26 Dose: 1 puff Cefepime HCl 2 gm/ Sodium (Chloride) 50 mls @ 100 mls/hr IV Q8H [facility] Last Infusion: 07/16/23 07:10 Dose: Infused Vancomycin HCl 750 mg/ Sodium (Chloride) 265 mls @ 265 mls/hr IV Q8H [facility] Last Infusion: 07/16/23 10:29 Dose: Infused Voriconazole 200 mg/ Sodium (Chloride) 100 mls @ 50 mls/hr IV Q12H [facility] Last Admin: 07/16/23 12:34 Dose: 50 mls/hr Nicotine (Nicotine 14 Mg Patch.Td24) 14 mg TRANSDERMA Q24H [facility] Last Admin: 07/15/23 22:59 Dose: Not Given Pt Own (Ethambutol (400 Mg Tablet)) 1,200 mg PO DAILY [facility] Last Admin: 07/16/23 09:10 Dose: 1,200 mg Ondansetron HCl (Ondansetron Hcl 4 Mg/2 Ml Vial) 4 mg IVPUSH Q8H PRN PRN Reason: Nausea and Vomiting Oxycodone HCl (Oxycodone Hcl Immed Release 5 Mg Tablet) 5 mg PO Q4H PRN PRN Reason: Pain, Severe (Pain Scale 7-10) Last Admin: 07/16/23 11:52 Dose: 5 mg Pharmacy Consult (Consult Rx Vancomycin Dosing) 1 each MISCELLANE DAILY PRN PRN Reason: Consult order Prednisone (Prednisone 20 Mg Tablet) 40 mg PO DAILY [facility] Last Admin: 07/16/23 09:10 Dose: 40 mg Sodium Chloride (0.9 % Sodium Chloride Flush 3 Ml Syringe) [facility] Last Admin: 07/16/23 09:13 Dose: 3 ml Home Medications Medication Instructions Recorded Confirmed Last Taken Type albuterol sulfate 90 mcg/actuation 2 puff inhalation Q4H PRN 07/18/22 07/14/23 07/14/23 History aerosol inhaler (ProAir HFA) Shortness Of Breath Or Wheezing bictegravir 50 mg-emtricitabine 1 tab PO DAILY 07/18/22 07/14/23 07/14/23 History 200 mg-tenofovir alafenam 25 mg tablet (Biktarvy) atovaquone 750 mg/5 mL oral 750 mg PO BID 07/09/23 07/14/23 07/14/23 History suspension budesonide-formoterol HFA 160 2 puff inhalation BID 07/09/23 07/14/23 07/14/23 History mcg-4.5 mcg/actuation aerosol inhaler (Symbicort) ethambutol 400 mg tablet 1,200 mg PO DAILY 07/09/23 07/14/23 07/14/23 History Physical Exam Vital Signs: Vital Signs: Last Vital Signs Temp 98.4 F 07/16/23 11:04 Pulse 80 07/16/23 11:04 Resp 20 07/16/23 11:04 BP 104/57 L 07/16/23 11:04 Pulse Ox 100 07/16/23 11:04 O2 Del Method Room Air 07/16/23 11:04 BMI result Body Mass Index 21.0 Neuro: Speech: No Abnormal speech present Results Laboratory Findings 07/16/23 06:58 07/16/23 06:58 ABG, PT/INR, D-dimer: PT/INR, D-dimer PT 11.8 SEC (11.1-13.3) 07/14/23 20:36 INR 1.0 (0.9-1.1) 07/14/23 20:36 Abnormal lab findings: Abnormal Labs 07/14/23 07/14/23 07/14/23 20:36 20:54 20:54 RBC 2.77 L Hgb 8.5 L Hct 25.9 L RDW 17.2 H MPV 12.8 H Immature Gran % (Auto) Neut % (Auto) Lymph % (Auto) Lymph # (Auto) Abs Immat Gran (auto) Absolute Nucleated RBC 0.080 H Nucleated RBC % (auto) 1.0 H Neutrophils % (Manual) 82 H Band Neutrophils % 0 L Lymphocytes % (Manual) 10 L Lymphocytes # (Manual) 0.8 L ESR 36 H Potassium 2.7 L D Chloride 112 H Carbon Dioxide 17 L Anion Gap 10 L BUN 17 H Random Glucose Calcium 7.8 L D Magnesium 1.2 L* ALT 37 H C-Reactive Protein 5.12 H Total Protein 5.8 L Albumin 2.8 L 07/15/23 07/15/23 07/16/23 06:23 06:23 06:58 RBC 3.28 L Hgb 9.9 L Hct 30.9 L RDW 17.4 H MPV Immature Gran % (Auto) 1.5 H Neut % (Auto) 88.9 H Lymph % (Auto) 5.0 L Lymph # (Auto) 0.4 L Abs Immat Gran (auto) 0.11 H Absolute Nucleated RBC 0.030 H Nucleated RBC % (auto) 0.4 H Neutrophils % (Manual) Band Neutrophils % Lymphocytes % (Manual) Lymphocytes # (Manual) ESR Potassium Chloride 114 H 116 H Carbon Dioxide 16 L 18 L Anion Gap 8 L BUN 21 H Random Glucose 184 H Calcium 8.3 L Magnesium ALT 40 H C-Reactive Protein Total Protein 6.4 L 5.5 L Albumin 3.1 L 2.7 L 07/16/23 06:58 RBC 2.94 L Hgb 8.9 L Hct 27.9 L RDW 17.9 H MPV 12.8 H Immature Gran % (Auto) 1.6 H Neut % (Auto) 84.0 H Lymph % (Auto) 7.1 L Lymph # (Auto) 0.6 L Abs Immat Gran (auto) 0.14 H Absolute Nucleated RBC 0.020 H Nucleated RBC % (auto) Neutrophils % (Manual) Band Neutrophils % Lymphocytes % (Manual) Lymphocytes # (Manual) ESR Potassium Chloride Carbon Dioxide Anion Gap BUN Random Glucose Calcium Magnesium ALT C-Reactive Protein Total Protein Albumin Microbiology: Microbiology 07/14/23 20:36 Blood - Venous Blood Culture - Preliminary No growth after 24 hours. 07/14/23 20:36 Blood - Venous Blood Culture - Preliminary No growth after 24 hours. Assessment and Plan (1) Pulmonary Mycobacterium avium complex (MAC) infection: Status: Acute (2) AIDS: Status: Acute (3) Bronchopneumonia: Status: Acute (4) Pulmonary nodule: Status: Acute Plan The patient has AIDS with a CD4>50 therefore at risk for fungal infections. The nodular density appears to have a halo and aspergilus needs to be treated. Also Cryptococcal pneumonia is in the defferential. Does not appear to be PCP pleus s he is already on Atovaquone. Less likely lymphoma with a rapid progression in 1 week. REC: Crypto and Aspergilus ag Add Voriconazole 200mg IV Q12 Broad spectrum ab Would benefit from a bronchosopcy Time Spent With Patient Time: Total time managing care of this patient today ____ minutes. Procedures Date of Service Date of Service: 07/16/23
[2023-07-16 13:45] LABS: Lactate Dehydrogenase 147 U/L (122-220)
[2023-07-17] MEDS: Voriconazole 200 MG in 0.9 % Sodium Chloride 100 ML 20 MG IV (00:40)
[2023-07-17] MEDS: 0.9 % Sodium Chloride Flush 3 ML SYRINGE IVFLUSH ×2 (00:41→07:47)
[2023-07-17] MEDS: vancomycin HCL 750 MG in 0.9 % Sodium Chloride 250 ML 265 MG IV ×3 (02:09→20:17)
[2023-07-17] MEDS: oxyCODONE HCl Immed Release 5 MG TABLET PO ×5 (03:17→22:22)
[2023-07-17 03:24] VITALS: BP 105/56; PULSE 64; RESP 20; TEMP 37; O2SAT 97
[2023-07-17 07:09] LABS: Hematocrit 31.2 % (37.0-47.0); Mean Corpuscular HGB Conc 32.1 g/dl (31.0-35.0); Mean Corpuscular Hemoglobin 30.6 pg (27.0-33.0); Mean Corpuscular Volume 95.4 fL (80.0-98.0); Mean Platelet Volume 12.6 fL (9.4-12.3); Platelet Count 193 X10*3/uL (160-400); Red Blood Count 3.27 X10*6/uL (4.20-5.50)
[2023-07-17 07:11] LABS: WBC ABN SCTR FOR CBC 1
[2023-07-17 07:26] LABS: Vancomycin Random 21.2 mcg/mL (15-20)
[2023-07-17 07:28] LABS: Alanine Aminotransferase 24 U/L (0-31); Albumin Level 3.1 g/dL (3.5-5.0); Alkaline Phosphatase 78 U/L (39-117); Anion Gap 13 (12-20); Aspartate Amino Transferase 15 U/L (5-31); Bilirubin Total 0.3 mg/dL (0.0-1.0); Blood Urea Nitrogen 17 mg/dL (9-16); Calcium 8.5 mg/dL (8.4-10.2); Carbon Dioxide 17 mmol/L (22-29); Chloride 111 mmol/L (96-108); Creatinine Clr Calc Pharmacy 113.2; Estimated Glomerular Filt Rate > 60; Glucose Fasting 81 mg/dL (60-99); Potassium 3.7 mmol/L (3.3-5.1); Sodium 137 mmol/L (135-145); Total Protein 6.3 g/dL (6.5-8.0)
[2023-07-17 07:35] VITALS: BP 121/56; PULSE 90; RESP 18; TEMP 36.6; O2SAT 100
--- NOTE | 2023-07-17 07:36 | HE.PHANOTE ---
RE VANCO TROUGH WAS 21.2 HIGHER THAT INSIGHT IS PREDICTING. I WILL DECREASE THE DOSING INTERVAL TO Q12H, SUSPECTED TROUGH IS 9.1, AUC IS 373 BUT IF IT FALLS IN THE SAME PATERN IT SHOULD BE AT GOAL YOUNG
[2023-07-17 07:38] LABS: Atypical Lymphs Percent Manual 2 % (0-6); Band Neutrophils Percent 1 % (3-5); Lymphocytes Percent Manual 16 % (20-40); Monocytes Percent Manual 4 % (2-11); Neutrophils Percent Manual 77 % (45-73)
[2023-07-17 07:40] LABS: Macrocytosis 1+ (5-14) /OIF; Microcytosis 1+ (5-14) /OIF; Ovalocytes 1+ (5-14) /OIF; Platelet Estimate NORMAL (NORMAL); Platelet Morphology Comment NORMAL; Polychromasia 1+ (0-2) /OIF; RBC Morphology NOTED
[2023-07-17] MEDS: predniSONE 20 MG TABLET 40 MG PO (07:46)
[2023-07-17] MEDS: Bictegrav/Emtricit/Tenofov Ala TABLET 1 TAB PO (07:46)
[2023-07-17] MEDS: Atovaquone 750 MG/5 ML ORAL.SUSP PO ×2 (07:46→20:17)
[2023-07-17] MEDS: cefEPime HCl 2 GM in 0.9 % Sodium Chloride 50 ML IV ×2 (07:46→14:34)
[2023-07-17] MEDS: Fluticasone/Vilanterol 200/25 BLST.W.DEV 1 PUFF INHALE (07:56)
[2023-07-17 07:57] VITALS: PULSE 83; RESP 18; O2SAT 100
[2023-07-17 08:45] LABS: Atypical Lymph Absolute Manual 0.2 x10*3/uL; Lymphocytes Absolute Manual 1.2 X10*3/uL (1.2-4.9); Monocytes Absolute Manual 0.3 X10*3/uL (0.1-1.2); Neutrophils Absolute Manual 5.9 X10*3/uL (2.0-8.3); White Blood Count 7.6 X10*3/uL (4.8-10.8)
--- NOTE | 2023-07-17 10:47 | MHC.CM.PN ---
Per ROUNDS discussion, Patient is not yet medically cleared for dc (awaiting a Bronch); home is the goal and CM will continue to follow.
[2023-07-17 11:14] VITALS: BP 111/57; PULSE 84; RESP 18; TEMP 36.3; O2SAT 98
[2023-07-17] MEDS: Voriconazole 200 MG in 0.9 % Sodium Chloride 100 ML 100 MG IV (12:32)
[2023-07-17 15:23] VITALS: BP 113/60; PULSE 66; RESP 14; TEMP 36.2; O2SAT 99
--- NOTE | 2023-07-17 16:44 | P.PNIM_ITS ---
Subjective Subjective Date of Service: 07/17/23 Interval History: Complaining of chest discomfort with coughing, denies fever chills, no headache no dizziness, tolerating diet no nausea, no vomiting, no abdominal pain no other acute events overnight. Review of Systems All other system reviewed and negative Physical Exam Vital Signs: Vital Signs: Last Vital Signs Temp 97.1 F 07/17/23 15:23 Pulse 66 07/17/23 15:23 Resp 14 07/17/23 15:23 BP 113/60 07/17/23 15:23 Pulse Ox 99 07/17/23 15:23 O2 Del Method Room Air 07/17/23 15:23 BMI result Body Mass Index 21.0 Const: Other: General resting comfortably in no acute distress. Neck supple no JVD. CVS regular rate rhythm, Respiratory lungs clear to auscultation, no respiratory distress, no wheeze, no rhonchi. Gastrointestinal abdomen soft, nontender, bowel sounds audible, no guarding , no rigidity. Extremities no edema. Neuro nonfocal Skin no rash psych appropriate affect Objective Data Active Medications Acetaminophen (Acetaminophen 325 Mg Tablet) 650 mg PO Q6H PRN PRN Reason: Pain, Mild (Pain Scale 1-3) Last Admin: 07/15/23 20:12 Dose: 650 mg Documented By: RAYMOND Albuterol Sulfate (Albuterol Sulfate 90 Mcg 8 Gm Inhaler) 2 puff INHALE Q4H PRN PRN Reason: Shortness Of Breath Or Wheezing Atovaquone (Atovaquone 750 Mg/5 Ml Oral.Susp) 750 mg PO BID [facility] Last Admin: 07/17/23 07:46 Dose: 750 mg Documented By: PRAFUL Bictegravir/Emtricitabine/Tenofovir (Bictegrav/Emtricit/Tenofov Ala Tablet) 1 tab PO DAILY [facility] Last Admin: 07/17/23 07:46 Dose: 1 tab Documented By: PRAFUL Docusate Sodium (Docusate Sodium 100 Mg Capsule) 100 mg PO DAILY PRN PRN Reason: Constipation Enoxaparin Sodium (Enoxaparin Sodium 40 Mg/0.4 Ml Syringe) 40 mg SUBCUT Q24H [facility] Last Admin: 07/16/23 22:56 Dose: Not Given Documented By: JORDEN Non-Admin Reason: Patient Refused Fluticasone/Vilanterol (Fluticasone/Vilanterol 200/25 Blst.W.Dev) 1 puff INHALE RDAILY [facility] Last Admin: 07/17/23 07:56 Dose: 1 puff Documented By: TESSA Cefepime HCl 2 gm/ Sodium (Chloride) 50 mls @ 100 mls/hr IV Q8H [facility] Last Infusion: 07/17/23 15:45 Dose: 0 mls/hr Documented By: TATIANA Voriconazole 200 mg/ Sodium (Chloride) 100 mls @ 50 mls/hr IV Q12H [facility] Last Infusion: 07/17/23 13:37 Dose: 0 mls/hr Documented By: PRAFUL Vancomycin HCl 750 mg/ Sodium (Chloride) 265 mls @ 265 mls/hr IV Q12H [facility] Last Infusion: 07/17/23 11:40 Dose: 0 mls/hr Documented By: PRAFUL Nicotine (Nicotine 14 Mg Patch.Td24) 14 mg TRANSDERMA Q24H [facility] Last Admin: 07/16/23 21:56 Dose: Not Given Documented By: JORDEN Non-Admin Reason: Patient Refused Pt Own (Ethambutol (400 Mg Tablet)) 1,200 mg PO DAILY [facility] Last Admin: 07/17/23 07:46 Dose: 1,200 mg Documented By: PRAFUL Ondansetron HCl (Ondansetron Hcl 4 Mg/2 Ml Vial) 4 mg IVPUSH Q8H PRN PRN Reason: Nausea and Vomiting Oxycodone HCl (Oxycodone Hcl Immed Release 5 Mg Tablet) 5 mg PO Q4H PRN PRN Reason: Pain, Severe (Pain Scale 7-10) Last Admin: 07/17/23 16:42 Dose: 5 mg Documented By: TATIANA Pharmacy Consult (Consult Rx Vancomycin Dosing) 1 each MISCELLANE DAILY PRN PRN Reason: Consult order Prednisone (Prednisone 20 Mg Tablet) 40 mg PO DAILY [facility] Last Admin: 07/17/23 07:46 Dose: 40 mg Documented By: PRAFUL Sodium Chloride (0.9 % Sodium Chloride Flush 3 Ml Syringe) 3 ml IVFLUSH QSHIFT [facility] Last Admin: 07/17/23 15:47 Dose: Not Given Documented By: TATIANA Non-Admin Reason: Previously Administered Labs 07/17/23 07:00 07/17/23 07:00 Labs: Laboratory Results - last 24 hr 07/17/23 07/17/23 07/17/23 07:00 07:00 07:00 MCV 95.4 MCH 30.6 MCHC 32.1 RDW 18.0 H Plt Count 193 MPV 12.6 H Immature Gran % (Auto) Cancelled Neut % (Auto) Cancelled Lymph % (Auto) Cancelled Early % (Auto) Cancelled Eos % (Auto) Cancelled Baso % (Auto) Cancelled Lymph # (Auto) Cancelled Early # (Auto) Cancelled Eos # (Auto) Cancelled Baso # (Auto) Cancelled Abs Immat Gran (auto) Cancelled Absolute Neuts (auto) Cancelled Absolute Nucleated RBC 0.000 Nucleated RBC % (auto) 0.0 Neutrophils % (Manual) 77 H Band Neutrophils % 1 L Lymphocytes % (Manual) 16 L Atypical Lymphs % (Man) 2 Monocytes % (Manual) 4 Abs Neuts (Manual) 5.9 Lymphocytes # (Manual) 1.2 Atyp Lymphs # (Manual) 0.2 Monocytes # (Manual) 0.3 Platelet Estimate NORMAL Plt Morphology Comment NORMAL RBC Morphology NOTED Polychromasia 1+ (0-2) Microcytosis 1+ (5-14) Macrocytosis 1+ (5-14) Ovalocytes 1+ (5-14) Anion Gap 13 Estim Creat Clear Calc 113.2 Estimated GFR > 60 Fasting Glucose 81 Calcium 8.5 Total Bilirubin 0.3 AST 15 ALT 24 Alkaline Phosphatase 78 Total Protein 6.3 L Albumin 3.1 L Random Vancomycin 21.2 H Microbiology Microbiology Results: Microbiology 07/14/23 20:36 Blood Culture - Preliminary Blood - Venous No growth after 48 hours. 07/14/23 20:36 Blood Culture - Preliminary Blood - Venous No growth after 48 hours. Assessment and Plan (1) Sepsis: Status: Acute (2) CAP (community acquired pneumonia): Status: Acute (3) Lung mass: Status: Acute Plan [id number] female recently discharged from [facility] after being treated for bronchiectasis with past medical history of AIDS/HIV, comes into the hospital shortness of breath ; repeat CT scan this a.m. demonstrates a rapid increase in the size of the right parahilar opacity with surrounding ground-glass infiltrate. 1.Sepsis secondary worsening pneumonia(Parahilar opacity) - broadly covered with iv vanco , IV cefepime and on IV voriconazole 100 mg Q 12 hour to cover aspergilus - has history of MAC infection on atovaquone - CT scan demonstrates worsening perihilar infiltrates - discussed with Pulmonary; they recommend bronchoscopy as well as aspergillosis and cryptococcus antigen test ordered report pending . case discussed with ID and service administrator Dr. Noonan they recommend tissue biopsy therefore obtain thoracic surgery consultation. will add scheduled cough medication and wean steroids 2.Hypo magnesemia,hypokalemia repleted and normalize 3.MAC infection - continue ethambutol, atovaquone 4. AIDS -continue outpatient therapies 5. tobacco use disorder continue nicotine patch DVT prophylaxis: Lovenox Full code Patient requires ongoing hospitalization for IV antibiotics to treat worsening infiltrate. Time Spent With Patient Time: Total time managing care of this patient today ____ minutes. Quality Stroke Does the patient have a stroke diagnosis?: No VTE Prior VTE?: No VTE Risk Level:: Medical - moderate - high VTE Device Contraindication: Treatment Not Indicated VTE Drug Contraindication: N/A - Med Ordered
[2023-07-17 20:00] VITALS: BP 124/70; PULSE 75; RESP 14; TEMP 36; O2SAT 99
[2023-07-17] MEDS: guaiFENesin DM 100/10/5 ML 5 ML SYRUP 10 ML PO (20:17)
[2023-07-17] MEDS: Acetaminophen 325 MG TABLET 650 MG PO (20:18)
[2023-07-17] MEDS: Loperamide HCl 2 MG CAPSULE PO (22:22)
[2023-07-18] VITALS (7 sets, daily range): BP systolic 103–128; BP diastolic 56–69; PULSE 62–100; RESP 18–20; TEMP 36.6–36.8; O2SAT 97–100
[2023-07-18] MEDS: cefEPime HCl 2 GM in 0.9 % Sodium Chloride 50 ML IV ×2 (01:32→08:25)
[2023-07-18] MEDS: 0.9 % Sodium Chloride Flush 3 ML SYRINGE IVFLUSH ×4 (01:33→20:12)
[2023-07-18] MEDS: Voriconazole 200 MG in 0.9 % Sodium Chloride 100 ML 50 MG IV ×2 (02:03→12:33)
[2023-07-18] MEDS: oxyCODONE HCl Immed Release 5 MG TABLET PO ×4 (04:46→22:38)
[2023-07-18 07:10] LABS: Hematocrit 30.1 % (37.0-47.0); Hemoglobin 9.4 g/dl (12.0-16.0); Mean Corpuscular HGB Conc 31.2 g/dl (31.0-35.0); Mean Corpuscular Hemoglobin 30.3 pg (27.0-33.0); Mean Corpuscular Volume 97.1 fL (80.0-98.0); Mean Platelet Volume 12.7 fL (9.4-12.3); Platelet Count 187 X10*3/uL (160-400); Red Cell Distribution Width 18.3 % (11.0-16.0)
[2023-07-18 07:13] LABS: WBC ABN SCTR FOR CBC 1
[2023-07-18 07:24] LABS: Vancomycin Random 11.1 mcg/mL (15-20)
[2023-07-18 07:32] LABS: Alanine Aminotransferase 21 U/L (0-31); Albumin Level 2.9 g/dL (3.5-5.0); Alkaline Phosphatase 76 U/L (39-117); Anion Gap 10 (12-20); Aspartate Amino Transferase 15 U/L (5-31); Bilirubin Total 0.2 mg/dL (0.0-1.0); Blood Urea Nitrogen 15 mg/dL (9-16); Calcium 8.7 mg/dL (8.4-10.2); Carbon Dioxide 21 mmol/L (22-29); Chloride 112 mmol/L (96-108); Creatinine Clr Calc Pharmacy 114.9; Estimated Glomerular Filt Rate > 60; Glucose Fasting 85 mg/dL (60-99); Potassium 3.8 mmol/L (3.3-5.1); Sodium 139 mmol/L (135-145)
--- NOTE | 2023-07-18 07:41 | HE.PHANOTE ---
RE: VANCO Patients level came back at 11.1. Increased dose fro 750 mg to 1000 mg Q12H, Scr has remained stable. Predicted AUC 504. Next level 07/19 @0700
[2023-07-18 07:46] LABS: Atypical Lymphs Percent Manual 1 % (0-6); Band Neutrophils Percent 1 % (3-5); Lymphocytes Percent Manual 13 % (20-40)
[2023-07-18 07:47] LABS: Macrocytosis 1+ (5-14) /OIF; Monocytes Percent Manual 5 % (2-11); Neutrophils Percent Manual 80 % (45-73); RBC Morphology NOTED
[2023-07-18] MEDS: Fluticasone/Vilanterol 200/25 BLST.W.DEV 1 PUFF INHALE (07:48)
[2023-07-18 07:49] LABS: Acanthocytes 1+ (0-2) /OIF; Ovalocytes 1+ (5-14) /OIF; Tear Drop Cells 1+ (0-2) /OIF
[2023-07-18 07:52] LABS: Hypochromasia 1+ (5-14) /OIF; Microcytosis 1+ (5-14) /OIF
[2023-07-18 07:53] LABS: Atypical Lymph Absolute Manual 0.1 x10*3/uL; Large Platelet PRESENT; Lymphocytes Absolute Manual 0.9 X10*3/uL (1.2-4.9); Monocytes Absolute Manual 0.4 X10*3/uL (0.1-1.2); Neutrophils Absolute Manual 5.7 X10*3/uL (2.0-8.3); Platelet Estimate NORMAL (NORMAL); Platelet Morphology Comment NOTED; Polychromasia 1+ (0-2) /OIF
[2023-07-18] MEDS: Bictegrav/Emtricit/Tenofov Ala TABLET 1 TAB PO (08:16)
[2023-07-18] MEDS: predniSONE 20 MG TABLET PO (08:17)
[2023-07-18] MEDS: guaiFENesin DM 100/10/5 ML 5 ML SYRUP 10 ML PO (08:18)
[2023-07-18] MEDS: Atovaquone 750 MG/5 ML ORAL.SUSP PO ×2 (08:18→20:09)
[2023-07-18] MEDS: Acetaminophen 325 MG TABLET 650 MG PO ×2 (08:30→18:10)
[2023-07-18] MEDS: vancomycin HCL 1,000 MG in 0.9 % Sodium Chloride 250 ML 270 MG IV (10:48)
--- NOTE | 2023-07-18 12:39 | P.PNIM_ITS ---
Subjective Subjective Date of Service: 07/18/23 Interval History: Complaining of persistent chest discomfort with coughing able to bring up small amount of mcgowan colored phlegm with small specks of blood, denies fever chills, night lightheadedness, no dizziness, tolerating diet with no nausea no vomiting no abdominal pain or diarrhea, no acute events overnight. Review of Systems All other system reviewed and negative Physical Exam Vital Signs: Vital Signs: Last Vital Signs Temp 98.2 F 07/18/23 11:20 Pulse 89 07/18/23 11:20 Resp 20 07/18/23 11:20 BP 110/69 07/18/23 11:20 Pulse Ox 99 07/18/23 11:20 O2 Del Method Room Air 07/18/23 11:20 BMI result Body Mass Index 21.0 Const: Other: General resting comfortably in no acute distress.? Neck? supple no JVD. CVS? regular rate rhythm, Respiratory lungs clear to auscultation, no respiratory distress, no wheeze, no rhonchi. Gastrointestinal abdomen soft, nontender, bowel sounds audible, no guarding , no rigidity. Extremities no? edema. Neuro nonfocal Skin no rash psych appropriate affect Objective Data Active Medications Acetaminophen (Acetaminophen 325 Mg Tablet) 650 mg PO Q6H PRN PRN Reason: Pain, Mild (Pain Scale 1-3) Last Admin: 07/18/23 08:30 Dose: 650 mg Documented By: KASH Albuterol Sulfate (Albuterol Sulfate 90 Mcg 8 Gm Inhaler) 2 puff INHALE Q4H PRN PRN Reason: Shortness Of Breath Or Wheezing Atovaquone (Atovaquone 750 Mg/5 Ml Oral.Susp) 750 mg PO BID [facility] Last Admin: 07/18/23 08:18 Dose: 750 mg Documented By: KASH Bictegravir/Emtricitabine/Tenofovir (Bictegrav/Emtricit/Tenofov Ala Tablet) 1 tab PO DAILY [facility] Last Admin: 07/18/23 08:16 Dose: 1 tab Documented By: KASH Docusate Sodium (Docusate Sodium 100 Mg Capsule) 100 mg PO DAILY PRN PRN Reason: Constipation Enoxaparin Sodium (Enoxaparin Sodium 40 Mg/0.4 Ml Syringe) 40 mg SUBCUT Q24H [facility] Last Admin: 07/18/23 01:36 Dose: Not Given Documented By: POWER Non-Admin Reason: Patient Refused Fluticasone/Vilanterol (Fluticasone/Vilanterol 200/25 Blst.W.Dev) 1 puff INHALE RDAILY [facility] Last Admin: 07/18/23 07:48 Dose: 1 puff Documented By: TESSA Guaifenesin/Dextromethorphan (Guaifenesin Dm 100/10/5 Ml 5 Ml Syrup) 10 ml PO TID [facility] Last Admin: 07/18/23 08:18 Dose: 10 ml Documented By: KASH Cefepime HCl 2 gm/ Sodium (Chloride) 50 mls @ 100 mls/hr IV Q8H [facility] Last Infusion: 07/18/23 10:54 Dose: 0 mls/hr Documented By: KASH Voriconazole 200 mg/ Sodium (Chloride) 100 mls @ 50 mls/hr IV Q12H [facility] Last Admin: 07/18/23 12:33 Dose: 50 mls/hr Documented By: KASH Vancomycin HCl 1,000 mg/ (Sodium Chloride) 270 mls @ 270 mls/hr IV Q12H [facility] Last Infusion: 07/18/23 12:38 Dose: 0 mls/hr Documented By: KASH Loperamide HCl (Loperamide Hcl 2 Mg Capsule) 2 mg PO Q4H PRN PRN Reason: Diarrhea Last Admin: 07/17/23 22:22 Dose: 2 mg Documented By: DARBY Nicotine (Nicotine 14 Mg Patch.Td24) 14 mg TRANSDERMA Q24H [facility] Last Admin: 07/18/23 01:36 Dose: Not Given Documented By: POWER Non-Admin Reason: Patient Refused Pt Own (Ethambutol (400 Mg Tablet)) 1,200 mg PO DAILY [facility] Last Admin: 07/18/23 08:30 Dose: 1,200 mg Documented By: KASH Ondansetron HCl (Ondansetron Hcl 4 Mg/2 Ml Vial) 4 mg IVPUSH Q8H PRN PRN Reason: Nausea and Vomiting Oxycodone HCl (Oxycodone Hcl Immed Release 5 Mg Tablet) 5 mg PO Q4H PRN PRN Reason: Pain, Severe (Pain Scale 7-10) Last Admin: 07/18/23 10:45 Dose: 5 mg Documented By: KASH Pharmacy Consult (Consult Rx Vancomycin Dosing) 1 each MISCELLANE DAILY PRN PRN Reason: Consult order Prednisone (Prednisone 20 Mg Tablet) 20 mg PO DAILY [facility] Last Admin: 07/18/23 08:17 Dose: 20 mg Documented By: KASH Sodium Chloride (0.9 % Sodium Chloride Flush 3 Ml Syringe) 3 ml IVFLUSH QSHIFT [facility] Last Admin: 07/18/23 08:18 Dose: 3 ml Documented By: KASH Labs 07/18/23 06:50 07/18/23 06:50 Labs: Laboratory Results - last 24 hr 07/16/23 07/18/23 07/18/23 13:20 06:50 06:50 MCV 97.1 MCH 30.3 MCHC 31.2 RDW 18.3 H Plt Count 187 MPV 12.7 H Immature Gran % (Auto) Cancelled Neut % (Auto) Cancelled Lymph % (Auto) Cancelled Plumas % (Auto) Cancelled Eos % (Auto) Cancelled Baso % (Auto) Cancelled Lymph # (Auto) Cancelled Plumas # (Auto) Cancelled Eos # (Auto) Cancelled Baso # (Auto) Cancelled Abs Immat Gran (auto) Cancelled Absolute Neuts (auto) Cancelled Absolute Nucleated RBC 0.000 Nucleated RBC % (auto) 0.0 Neutrophils % (Manual) 80 H Band Neutrophils % 1 L Lymphocytes % (Manual) 13 L Atypical Lymphs % (Man) 1 Monocytes % (Manual) 5 Abs Neuts (Manual) 5.7 Lymphocytes # (Manual) 0.9 L Atyp Lymphs # (Manual) 0.1 Monocytes # (Manual) 0.4 Platelet Estimate NORMAL Large Platelets PRESENT Plt Morphology Comment NOTED RBC Morphology NOTED Polychromasia 1+ (0-2) Hypochromasia 1+ (5-14) Microcytosis 1+ (5-14) Macrocytosis 1+ (5-14) Tear Drop Cells 1+ (0-2) Ovalocytes 1+ (5-14) Acanthocytes (Spur) 1+ (0-2) Anion Gap 10 L Estim Creat Clear Calc 114.9 Estimated GFR > 60 Fasting Glucose 85 Calcium 8.7 Total Bilirubin 0.2 AST 15 ALT 21 Alkaline Phosphatase 76 Total Protein 6.0 L Albumin 2.9 L Random Vancomycin Cryptococcal Ag SEE NOTE 07/18/23 06:50 MCV MCH MCHC RDW Plt Count MPV Immature Gran % (Auto) Neut % (Auto) Lymph % (Auto) Plumas % (Auto) Eos % (Auto) Baso % (Auto) Lymph # (Auto) Plumas # (Auto) Eos # (Auto) Baso # (Auto) Abs Immat Gran (auto) Absolute Neuts (auto) Absolute Nucleated RBC Nucleated RBC % (auto) Neutrophils % (Manual) Band Neutrophils % Lymphocytes % (Manual) Atypical Lymphs % (Man) Monocytes % (Manual) Abs Neuts (Manual) Lymphocytes # (Manual) Atyp Lymphs # (Manual) Monocytes # (Manual) Platelet Estimate Large Platelets Plt Morphology Comment RBC Morphology Polychromasia Hypochromasia Microcytosis Macrocytosis Tear Drop Cells Ovalocytes Acanthocytes (Spur) Anion Gap Estim Creat Clear Calc Estimated GFR Fasting Glucose Calcium Total Bilirubin AST ALT Alkaline Phosphatase Total Protein Albumin Random Vancomycin 11.1 L Cryptococcal Ag Assessment and Plan (1) Sepsis: Status: Acute (2) CAP (community acquired pneumonia): Status: Acute (3) Lung mass: Status: Acute Plan 32-year-old female recently discharged from [facility] after being treated for bronchiectasis with past medical history of AIDS/HIV, comes into the hospital shortness of breath ; repeat CT scan this a.m. demonstrates a rapid increase in the size of the right parahilar opacity with surrounding ground- glass infiltrate. 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 - aspergillosis and cryptococcus antigen test pending . case discussed with ID and auto porter Dr. Noonan they recommend tissue biopsy therefore obtain thoracic surgery consultation. seen by Dr. Gregorio he feels there is no surgical issues cont.scheduled cough medication and wean steroids Will discuss with ID regarding duration of antibiotics and further discussion with pulmonology regarding tissue biopsy. 2.Hypo magnesemia,hypokalemia repleted and normalized 3.MAC infection - continue ethambutol, atovaquone 4. AIDS -continue outpatient therapies 5. tobacco use disorder continue nicotine patch DVT prophylaxis: Lovenox Full code Patient requires ongoing hospitalization for IV antibiotics to treat worsening infiltrate.expert Time Spent With Patient Time: Total time managing care of this patient today ____ minutes. Quality Stroke Does the patient have a stroke diagnosis?: No VTE Prior VTE?: No VTE Risk Level:: Medical - moderate - high VTE Device Contraindication: Treatment Not Indicated VTE Drug Contraindication: N/A - Med Ordered
[2023-07-18] MEDS: guaiFEN/Codeine SF 200/20/10ML 10 ML LIQUID 5 ML PO ×3 (13:59→20:11)
[2023-07-18] MEDS: Loperamide HCl 2 MG CAPSULE PO (18:20)
[2023-07-19] VITALS (12 sets, daily range): BP systolic 95–126; BP diastolic 46–80; PULSE 67–101; RESP 15–22; TEMP 36.3–37.3; O2SAT 95–99
[2023-07-19 07:22] LABS: Creatinine Clr Calc Pharmacy 108.4; Estimated Glomerular Filt Rate > 60
[2023-07-19 07:24] LABS: Vancomycin Random 5.8 mcg/mL (15-20)
[2023-07-19] MEDS: Fluticasone/Vilanterol 200/25 BLST.W.DEV 1 PUFF INHALE (07:48)
[2023-07-19] MEDS: predniSONE 20 MG TABLET PO (07:56)
[2023-07-19] MEDS: guaiFEN/Codeine SF 200/20/10ML 10 ML LIQUID 5 ML PO ×4 (07:56→20:43)
[2023-07-19] MEDS: 0.9 % Sodium Chloride Flush 3 ML SYRINGE IVFLUSH (07:57)
[2023-07-19] MEDS: Bictegrav/Emtricit/Tenofov Ala TABLET 1 TAB PO (07:58)
[2023-07-19] MEDS: oxyCODONE HCl Immed Release 5 MG TABLET PO ×4 (08:01→22:38)
--- NOTE | 2023-07-19 08:24 | MHC.SHP ---
Pre-Procedural Eval Section A Date of Service: 07/19/23 The patient is an INPATIENT: Yes The History & Physical has been completed within 30 days and I have reviewed it.: Yes Section B Chief Complaint: Sepsis, PNA Allergies: Allergies Allergy/AdvReac Type Severity Reaction Status Date / Time sulfamethoxazole Allergy Severe SWELLING Verified 07/18/22 09:02 [From BACTRIM] trimethoprim [From BACTRIM] Allergy Severe SWELLING Verified 07/18/22 09:02 Sulfa (Sulfonamide Allergy Unknown Unknown Verified 07/18/22 09:02 Antibiotics) Plan Diagnosis/Plan: Unchanged I have reviewed the history and physical and performed a pertinent physical examination on my patient. No changes have occurred unless specified. Time Spent With Patient Time: Total time managing care of this patient today ____ minutes.
--- NOTE | 2023-07-19 13:46 | HO.PM.IMPN ---
Subjective Subjective Date of Service: 07/19/23 Interval History: NPO for bronchoscopy, denies fevers, no chills continue to have productive cough of mcgowan colored phlegm with chest discomfort, no headache no dizziness, no other acute issues overnight. Review of Systems All other system reviewed and negative. Physical Exam Vital Signs: Vital Signs: Last Vital Signs Temp 98.7 F 07/19/23 12:17 Pulse 82 07/19/23 12:32 Resp 16 07/19/23 12:32 BP 102/65 07/19/23 12:32 Pulse Ox 95 07/19/23 12:32 O2 Del Method Room Air 07/19/23 12:32 BMI result Body Mass Index 21.0 Const: Other: General resting comfortably in no acute distress.? Neck? supple no JVD. CVS? regular rate rhythm, Respiratory lungs clear to auscultation, no respiratory distress, no wheeze, no rhonchi. Gastrointestinal abdomen soft, non tender, bowel sounds audible, no guarding , no rigidity. Extremities no? edema. Neuro nonfocal Skin no rash psych appropriate affect Objective Data Active Medications Acetaminophen (Acetaminophen 325 Mg Tablet) 650 mg PO Q6H PRN PRN Reason: Pain, Mild (Pain Scale 1-3) Last Admin: 07/18/23 18:10 Dose: 650 mg Documented By: KASH Albuterol Sulfate (Albuterol Sulfate 90 Mcg 8 Gm Inhaler) 2 puff INHALE Q4H PRN PRN Reason: Shortness Of Breath Or Wheezing Atovaquone (Atovaquone 750 Mg/5 Ml Oral.Susp) 750 mg PO BID [facility] Last Admin: 07/19/23 08:01 Dose: Not Given Documented By: MARITA Non-Admin Reason: NPO Bictegravir/Emtricitabine/Tenofovir (Bictegrav/Emtricit/Tenofov Ala Tablet) 1 tab PO DAILY [facility] Last Admin: 07/19/23 07:58 Dose: 1 tab Documented By: MARITA Docusate Sodium (Docusate Sodium 100 Mg Capsule) 100 mg PO DAILY PRN PRN Reason: Constipation Enoxaparin Sodium (Enoxaparin Sodium 40 Mg/0.4 Ml Syringe) 40 mg SUBCUT Q24H [facility] Last Admin: 07/18/23 22:40 Dose: Not Given Documented By: JAIDEN Non-Admin Reason: Patient Refused Fluticasone/Vilanterol (Fluticasone/Vilanterol 200/25 Blst.W.Dev) 1 puff INHALE RDAILY [facility] Last Admin: 07/19/23 07:48 Dose: 1 puff Documented By: ZHOU Guaifenesin/Codeine Phosphate (Guaifen/Codeine Sf 200/20/10ml 10 Ml Liquid) 5 ml PO QID [facility] Last Admin: 07/19/23 07:56 Dose: 5 ml Documented By: MARITA Loperamide HCl (Loperamide Hcl 2 Mg Capsule) 2 mg PO Q4H PRN PRN Reason: Diarrhea Last Admin: 07/18/23 18:20 Dose: 2 mg Documented By: KASH Nicotine (Nicotine 14 Mg Patch.Td24) 14 mg TRANSDERMA Q24H [facility] Last Admin: 07/18/23 22:41 Dose: Not Given Documented By: JAIDEN Non-Admin Reason: Patient Refused Pt Own (Ethambutol (400 Mg Tablet)) 1,200 mg PO DAILY [facility] Last Admin: 07/19/23 07:57 Dose: 1,200 mg Documented By: MARITA Ondansetron HCl (Ondansetron Hcl 4 Mg/2 Ml Vial) 4 mg IVPUSH Q8H PRN PRN Reason: Nausea and Vomiting Oxycodone HCl (Oxycodone Hcl Immed Release 5 Mg Tablet) 5 mg PO Q4H PRN PRN Reason: Pain, Severe (Pain Scale 7-10) Last Admin: 07/19/23 08:01 Dose: 5 mg Documented By: MARITA Pharmacy Consult (Consult Rx Vancomycin Dosing) 1 each MISCELLANE DAILY PRN PRN Reason: Consult order Prednisone (Prednisone 20 Mg Tablet) 20 mg PO DAILY [facility] Last Admin: 07/19/23 07:56 Dose: 20 mg Documented By: MARITA Sodium Chloride (0.9 % Sodium Chloride Flush 3 Ml Syringe) 3 ml IVFLUSH QSHIFT [facility] Last Admin: 07/19/23 07:57 Dose: 3 ml Documented By: MARITA Labs 07/18/23 06:50 07/19/23 06:50 Labs: Laboratory Results - last 24 hr 07/19/23 07/19/23 06:50 06:50 Estim Creat Clear Calc 108.4 Estimated GFR > 60 Random Vancomycin 5.8 L Assessment and Plan (1) Sepsis: Status: Acute (2) CAP (community acquired pneumonia): Status: Acute (3) Lung mass: Status: Acute Plan 32-year-old female recently discharged from [facility] after being treated for bronchiectasis with past medical history of AIDS/HIV, comes into the hospital shortness of breath ; repeat CT scan this a.m. demonstrates a rapid increase in the size of the right parahilar opacity with surrounding ground-glass infiltrate. 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 - aspergillosis and cryptococcus antigen test pending . Patient underwent bronchoscopy bronchial washings sent for culture g stain All antibiotics discontinued as per ID recommendation will follow clinical course and follow repeat culture sensitivities. cont.scheduled cough medication and wean steroids 2.Hypo magnesemia,hypokalemia repleted and normalized 3.MAC infection - continue ethambutol, atovaquone 4. AIDS -continue outpatient therapies 5. tobacco use disorder continue nicotine patch DVT prophylaxis: Lovenox Full code Patient requires ongoing hospitalization for close clinical follow-up due to recurrent fevers and pneumonia. Time Spent With Patient Time: Total time managing care of this patient today ____ minutes. Quality Stroke Does the patient have a stroke diagnosis?: No VTE Prior VTE?: No VTE Risk Level:: Medical - moderate - high VTE Device Contraindication: Treatment Not Indicated VTE Drug Contraindication: N/A - Med Ordered
--- NOTE | 2023-07-19 13:50 | PM.OP ---
Brief Operative Note Date of Service: 07/19/23 Pre-op diagnosis: AIDS, pneumonia Post-op diagnosis: same Procedure: Flexible bronchoscopy performed through the ET tube with patient intubated for the procedure. Bronchoscope advanced through the tracheobronchial tree with visualization of scant amount of thin mucus throughout that was cleared with normal bronchial mucosa underneath. No endobronchial lesions noted. Bronchoalveolar lavage was performed in the posterior segment of right upper lobe with specimen sent for microbiologic and cytologic testing. Also, transbronchial biopsies performed under fluoroscopic guidance in the right upper lobe posterior segment with tissue sent for pathologic examination including silver stain. Patient tolerated procedure well and was returned to PACU in stable condition. Surgeon: Huey Noonan MD Anesthesia: GETA Was an Supervisor Title used for this Procedure?: No Estimated blood loss (mL): 0 Condition: stable Disposition: PACU
[2023-07-19] MEDS: Atovaquone 750 MG/5 ML ORAL.SUSP PO (20:43)
[2023-07-20] MEDS: oxyCODONE HCl Immed Release 5 MG TABLET PO ×3 (03:43→12:19)
[2023-07-20] MEDS: Acetaminophen 325 MG TABLET 650 MG PO (03:44)
[2023-07-20] MEDS: 0.9 % Sodium Chloride Flush 3 ML SYRINGE IVFLUSH ×3 (03:45→16:50)
[2023-07-20 04:00] VITALS: BP 114/58; PULSE 57; RESP 20; TEMP 35.8; O2SAT 100
[2023-07-20 07:00] LABS: Creatinine Clr Calc Pharmacy 114.9; Estimated Glomerular Filt Rate > 60
[2023-07-20 07:08] VITALS: BP 138/77; PULSE 93; RESP 20; TEMP 36.3; O2SAT 99
[2023-07-20] MEDS: Fluticasone/Vilanterol 200/25 BLST.W.DEV 1 PUFF INHALE (07:40)
[2023-07-20 07:42] VITALS: PULSE 89; RESP 18; O2SAT 99
[2023-07-20] MEDS: Atovaquone 750 MG/5 ML ORAL.SUSP PO (07:53)
[2023-07-20] MEDS: guaiFEN/Codeine SF 200/20/10ML 10 ML LIQUID 5 ML PO ×3 (07:53→16:49)
[2023-07-20] MEDS: Bictegrav/Emtricit/Tenofov Ala TABLET 1 TAB PO (07:54)
[2023-07-20] MEDS: predniSONE 5 MG TABLET 15 MG PO (07:54)
[2023-07-20 11:13] VITALS: BP 110/75; PULSE 66; RESP 18; TEMP 36.1; O2SAT 98
--- NOTE | 2023-07-20 11:13 | HO.POSTANES ---
Post Anesthesia Evaluation Post Anesthesia Evaluation Date of Service: 07/20/23 Vital Signs: Vital Signs Temp Pulse Resp BP Pulse Ox O2 Del Method 07/20/23 07:42 89 18 07/20/23 07:08 97.3 F 93 20 138/77 99 Room Air 07/20/23 04:00 96.4 F L 57 20 114/58 L 100 Room Air Anesthesia: General Endotracheal-GETA Mental Status: Awake Pain Control: Satisfactory Nausea/Vomiting: None Hydration: Adequate Anesthesia-Related Issues: No Anes. Related Issues
--- NOTE | 2023-07-20 13:35 | PM.EVENT ---
Event Note Date of Service: 07/20/23 Time Spent With Patient Time: Total time managing care of this patient today ____ minutes.
--- NOTE | 2023-07-20 13:37 | PM.IDPN ---
Subjective Subjective Date of Service: 07/18/23 Critical Care Time (minutes): 15 Comment: she has some tannish sputum production Objective Data Labs 07/18/23 06:50 07/20/23 06:03 Labs: Laboratory Results - last 24 hr 07/20/23 06:03 Creatinine 0.66 Estim Creat Clear Calc 114.9 Estimated GFR > 60 Microbiology Microbiology Results: Microbiology 07/19/23 12:21 Bronch Rul Gram Stain - Final 07/19/23 12:21 Bronch Rul - Preliminary 07/14/23 20:36 Blood - Venous Blood Culture - Final No growth after 5 days. 07/14/23 20:36 Blood - Venous Blood Culture - Final No growth after 5 days. Physical Exam Vital Signs: Vital Signs: Last Vital Signs Temp 97 F 07/20/23 11:13 Pulse 66 07/20/23 11:13 Resp 18 07/20/23 11:13 BP 110/75 07/20/23 11:13 Pulse Ox 98 07/20/23 11:13 O2 Del Method Room Air 07/20/23 11:13 BMI result Body Mass Index 21.0 Const: General: cooperative HEENT: Head: Yes normal to inspection Face and sinus: Yes normal facial exam Mouth: Normal oral and palatal mucosa present Teeth and gingiva: dentition normal Eyes: General: appearance normal, both eyes and all related structures Pupils: Equal, round and reactive pupils present Resp: Effort & Inspection: normal respiratory effort Cardio: Rate: regular rate Rhythm: regular rhythm GI: Palpation (GI): Soft to palpation and nontender : General: Yes no CVA tenderness Back/Spine/Pelvis: Back: no CVA tenderness Skin: General skin exam: no rashes or lesions noted Neuro: General: moves all extremities Cranial nerves: Yes Equal, round and reactive pupils present Extrem: General: Yes normal to inspection Psych: Appearance: grossly normal Assessment and Plan Assessment and plan (1) Lung mass: Status: Acute Assessment and Plan: She has very high viral load over 500,000 and CD4 count undetectable. She is at risk for OIs as well as malignancy. I dont think this is due to elevated mycoplasma titer and so far bronchoscopy hasnt provided any useful information (2) Sepsis: Status: Acute Plan Would try to see if any sample can be obtained by thoracic of deeper tissue area lung in area of concern AFb,fungus,PJP and cytology. Patient is not taking her antivirals with these CD4 count and viral load. Time Spent With Patient Time: Total time managing care of this patient today ____ minutes.
[2023-07-20 15:18] VITALS: BP 120/61; PULSE 68; RESP 18; TEMP 36.7; O2SAT 97
--- NOTE | 2023-07-20 15:52 | PM.DS ---
DS: Providers Provider Date of Service: 07/20/23 Date of admission: 07/14/23 23:03 Primary care physician: Felicita Melgar MD Consults: 07/14/23 23:02 Consult to Infectious Diseases Routine Consulting Provider: [facility] [place] Infectious Disease Reason for consultation: PNA, failed op therapu , AIDS Has provider been notified: Yes 07/15/23 13:09 Consult to Thoracic Surgery Stat Consulting Provider: [facility] [place] Thoracic Surgeons Reason for consultation: Worsening parahilar opacity Has provider been notified: Yes 07/16/23 11:16 Consult to Pulmonology Stat Consulting Provider: [facility] [place] Pulmonology Services Reason for consultation: parahilar mass Has provider been notified: Yes 07/16/23 11:28 Consult to Infectious Diseases Routine Consulting Provider: Gloria Leung Reason for consultation: parahilar mass Has provider been notified: Yes 07/17/23 12:43 Consult to Thoracic Surgery Routine Consulting Provider: Javid Gregorio Reason for consultation: rt parahilar opacity rapidly growing Has provider been notified: No DS: Diagnosis Discharge Diagnosis (1) Lung mass: Status: Acute (2) Sepsis: Status: Acute DS: Summary Hospital Course Hospital Course: history of presenting illness: Date of Service: 07/14/23 Chief Complaint: Fever 32-year-old female with past medical history of HIV/aids, 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 She was given Ceftin and was discharged home.? On day of discharge on the she had significant improvement of her respiratory status and was sent home.? She returns today reporting fever of 105, worsening shortness of breath, cough, and some sputum production.? She denies any chest pain, no abdominal pain, no nausea vomiting, no diarrhea constipation, no urinary symptoms and no lower extremity edema Little able to the ED patient noted to have a fever of 102.5, heart rate of 102, blood pressure 121/56 with subsequent soft blood pressure readings Labs were noted for WBC count of 7.8, hemoglobin of 8.5 which is slightly lower than her baseline, hematocrit 25.9, potassium 2.7, chloride of 112, BUN of 17, creatinine of 0.87, magnesium 1.2, albumin of 2.8, UA negative, Note patient was diagnosed with coronavirus infection on previous admission.? Infectious Disease was consulted, will start patient on IV antibiotics will be admitted for further management. hospital course 32-year-old female recently discharged from [facility] after being treated for bronchiectasis with past medical history of AIDS/HIV, comes into the hospital shortness of breath, CT scan demonstrates worsening right parahilar opacity with surrounding ground-glass infiltrates, also worsening patchy infiltrates/atelectasis noted in the middle lobe right and left lower lobes and lingula, patient admitted to medical service with a diagnosis of sepsis secondary to worsening parahilar opacity and was placed on broad-spectrum antibiotics IV vancomycin, IV cefepime, subsequently seen by manager workers compensation there was a concern for aspergillosis therefore started on IV? voriconazole 100 mg Q 12 hour and continued on atovaquone for pcp and ethambutol for MAC infection, patient underwent bronchoscopy by pulmonology on July 19 and underwent transbronchial biopsies and tissue sent for pathology, gm. stain showed no polys and no organisms, pneumocystis PCR, aspergillosis antigen pending, cryptococcal antigen negative, patient followed closely by Infectious Disease she recommend close outpatient follow-up with her primary Infectious Disease , an appointment has been made with Dr. Martinez for July 25, she need follow-up on rapidly growing parahilar mass with repeat CT scan of chest and for possible tissue diagnosis of the lung in area of concern. all antibiotics and antifungal were discontinued since patient had no episodes of recurrent fevers, had no hypoxia and remained hemodynamically stable,recommend cough medications as needed. in regard to AIDS her CD4 count is undetectable, with significantly elevated viral count over 500,000, recommend to continue Biktarvy, patient also noted to have multiple electrolyte abnormalities including hypokalemia and hypo magnesemia that has been repleted and normalized, in regard to tobacco use disorder she has been placed on nicotine patch. Time Spent with Patient Time attestation: Total time managing care of this patient today ____ minutes. Discharge coordination time: Greater than 30 minutes Quality: Safe Use of Opioids Does Pt have an Active Cancer Diagnosis on the Problem List?: No Quality: Stroke Does the patient have a stroke diagnosis?: No Physical Exam Vital Signs: Vital Signs: Last Vital Signs Temp 98.1 F 07/20/23 15:18 Pulse 68 07/20/23 15:18 Resp 18 07/20/23 15:18 BP 120/61 07/20/23 15:18 Pulse Ox 97 07/20/23 15:18 O2 Del Method Room Air 07/20/23 15:18 BMI result Body Mass Index 21.0 Const: Other: General resting comfortably in no acute distress.? Neck? supple no JVD. CVS? regular rate rhythm, Respiratory lungs clear to auscultation, no respiratory distress, no wheeze, no rhonchi. Gastrointestinal abdomen soft, non tender, bowel sounds audible, no guarding , no rigidity. Extremities no? edema. Neuro nonfocal Skin no rash psych appropriate affect DS: Data Data Completed and Pending Pending studies at discharge: Pending at discharge 07/19/23 12:17 Surgical [PTH] Routine Labs on day of discharge: Laboratory Results - last 24 hr 07/20/23 06:03 Creatinine 0.66 Estim Creat Clear Calc 114.9 Estimated GFR > 60 Preliminary micro results at discharge 07/19/23 12:21 - Preliminary Bronch Rul Discharge Plan Discharge Anticipated Discharge Date/Time: 07/20/23 15:37 Patient Disposition: Home, Self-Care Discharge Diagnosis: right parahilar opacity sepsis due to pneumonia hypokalemia hypo magnesemia Referrals: Feilcita Melgar MD [Primary Care Provider] - 1 Week Discharge Medications: New codeine-guaifenesin [Guaifenesin AC] 10-100 mg/5 mL liquid 5 ml PO Q6H PRN (Reason: cough) Qty: 237 0RF Continued albuterol sulfate [ProAir HFA] 90 mcg/actuation HFA aerosol inhaler 2 puff inhalation Q4H PRN (Reason: Shortness Of Breath Or Wheezing) Biktarvy 50-200-25 mg tablet 1 tab PO DAILY ethambutol 400 mg tablet 1,200 mg PO DAILY atovaquone 750 mg/5 mL suspension 750 mg PO BID budesonide-formoterol [Symbicort] 160-4.5 mcg/actuation HFA aerosol inhaler 2 puff inhalation BID nicotine [Nicoderm CQ] 14 mg/24 hr patch 24 hour 1 patch transdermal Q24H Qty: 28 0RF Discontinued prednisone 20 mg Tablet 40 mg PO DAILY Qty: 10 0RF Discharge Orders: Discharge Order (Routine); Ordered 07/20/23 Ordered By: Reji Mitchell Diet: Advance to usual diet Activity on Discharge: As tolerated Stand Alone Forms: Patient Portal Discharge page Care Plan Goals: RECOMMEND TO TAKE ALL MEDICATIONS PRESCRIBED FOLLOW-UP WITH INFECTIOUS DISEASE AT [facility], RETURN TO HOSPITAL RECURRENT FEVERS SHORTNESS OF BREATH TAKE COUGH MEDICATION NEEDED STOP. PREDNISONE Health Concerns: take all home medications as prescribed Plan of Treatment: outpatient follow-up with DR. JAMIE MARTINEZ ON AT 10:00 MONDAY AT [facility] Assessment: As above
--- NOTE | 2023-07-20 15:57 | MHC.CM.PN ---
Pt is medically cleared for D/C home self-care, family to transport.
[2023-07-20 17:23] LABS: Aspergillus Antigen Not Detected (Not Detected); Index Value 0.21 (<0.50)
[2023-07-23 21:08] LABS: Pneumocystis jir Ql PCR NOT DETECTED; Pneumocystis jir source BRONCH WASHING
== END 2023-07-20 18:11 | disposition home or self-care (01) | DRG 890 ==
LOC: HO.ED 21:40 → HO.EDOVER 23:09 → HO.IMC 07-15 00:30
PROVIDERS: Hospitalist; Internal Medicine Pulmonary Disease; Nurse Practitioner Family; Admitting Provider Internal Medicine; Emergency Provider Emergency Medicine; PCP Internal Medicine; Visit Provider Hospitalist
PROC: 0BJ08ZZ Inspection of Tracheobronchial Tree, Via Natural or Artificial Opening Endoscopic (ICD-10-PCS; CPT 31622; principal; 2023-07-19 10:50)
DX: A41.9 Sepsis, unspecified organism (principal); B20 Human immunodeficiency virus [HIV] disease; A31.0 Pulmonary mycobacterial infection; J18.9 Pneumonia, unspecified organism; J47.0 Bronchiectasis with acute lower respiratory infection; R91.1 Solitary pulmonary nodule; E83.42 Hypomagnesemia; F17.210 Nicotine dependence, cigarettes, uncomplicated; Z71.6 Tobacco abuse counseling; E87.6 Hypokalemia; Z91.148 Patient's other noncompliance with medication regimen for other reason; Z20.822 Contact with and (suspected) exposure to COVID-19; Z79.899 Other long term (current) drug therapy
CPT/HCPCS: 0241U; 36415; 71045; 71046; 71250; 80053; 80202; 81003; 82248; 82565; 83605; 83615; 83735; 84484; 85007; 85025; 85027; 85379; 85610; 85652; 86140; 86403; 87040; 87071; 87205; 87305; 87541; 87798; 88305; 88312; 93005; 94640; 99285; J0171; J0330; J0613; J0692; J0696; J1100; J1650; J2270; J2930; J3010; J3370; J3371; J3465; J3475

== ENCOUNTER → 2023-07-14 23:03 | Outpatient (BNV) | payer OTHER, SELFPAY | PROVIDERS: Admitting Provider Internal Medicine; Emergency Provider Emergency Medicine; PCP Internal Medicine; Visit Provider Internal Medicine | DX: R91.8 Other nonspecific abnormal finding of lung field (principal); J18.9 Pneumonia, unspecified organism; A41.9 Sepsis, unspecified organism; B20 Human immunodeficiency virus [HIV] disease; A31.0 Pulmonary mycobacterial infection; D89.3 Immune reconstitution syndrome | CPT/HCPCS: 99222; 99232 ==

== ENCOUNTER → 2023-07-14 23:03 | Outpatient (BNV) | payer OTHER, SELFPAY | PROVIDERS: Admitting Provider Internal Medicine; Emergency Provider Emergency Medicine; PCP Internal Medicine; Visit Provider Surgery | DX: J47.9 Bronchiectasis, uncomplicated (principal); R50.9 Fever, unspecified | CPT/HCPCS: 99221 ==

== ENCOUNTER → 2023-07-14 23:03 | Outpatient (BNV) | payer OTHER, SELFPAY | PROVIDERS: Admitting Provider Internal Medicine; Emergency Provider Emergency Medicine; PCP Internal Medicine; Visit Provider Hospitalist | DX: J18.9 Pneumonia, unspecified organism (principal); B20 Human immunodeficiency virus [HIV] disease; A41.9 Sepsis, unspecified organism; R50.9 Fever, unspecified; E83.42 Hypomagnesemia; E87.8 Other disorders of electrolyte and fluid balance, not elsewhere classified | CPT/HCPCS: 31624; 31628; 99223 ==

== ENCOUNTER → 2023-07-14 23:03 | Outpatient (BNV) | payer OTHER, SELFPAY | PROVIDERS: Admitting Provider Internal Medicine; Emergency Provider Emergency Medicine; PCP Internal Medicine; Visit Provider Internal Medicine | DX: R91.8 Other nonspecific abnormal finding of lung field (principal); A41.9 Sepsis, unspecified organism | CPT/HCPCS: 99223; 99233; 99239 ==

== ENCOUNTER 2023-07-22 15:07 | Inpatient (IN) | payer OTHER, SELFPAY ==
[2023-07-22] VITALS (10 sets, daily range): BP systolic 83–129; BP diastolic 32–90; PULSE 109–148; RESP 18–95; TEMP 37.4–39.6; O2SAT 95–98; BMI 30.3
--- NOTE | ~2023-07-22 | CT_ITS ---
EXAMINATION: CT ANGIOGRAM OF THE CHEST WITH AND WITHOUT CONTRAST (CT PULMONARY ANGIOGRAM FOR PE) CLINICAL INFORMATION: Reason for Exam SOB, tachycardia, hx PE COMPARISON: 07/09/2023 TECHNIQUE: Prior to contrast administration, noncontrast localization images were obtained. Subsequently, multidetector volumetric imaging was performed from the thoracic inlet to below the diaphragms following the administration of 65 mL Omnipaque 350 intravenous contrast. No contrast reaction reported Sagittal, coronal, and MIP oblique sagittal reformatted images were obtained on the CT workstation, uploaded to PACS, and reviewed. This CT examination was performed using dose optimization techniques as appropriate, variously including the following: *Automated exposure control *Adjustment of mA and/or kV according to patient size (this includes techniques or standardized protocols for targeted exams where dose is matched to indication/reason for exam; i.e. extremities or head) *Use of iterative reconstruction technique Total exam dose-length product 240 mGy-cm FINDINGS: QUALITY OF STUDY/CONTRAST BOLUS: Satisfactory. PULMONARY ARTERIES: No pulmonary emboli. THORACIC AORTA: No aneurysm. LUNG: There is stable right upper lobe subpleural 0.3 cm nodule there is ill-defined right upper lobe opacity most likely small infiltrate seen on image 28 series 6 and on the previous examination, which is consolidation in the right upper lobe has been almost completely resolved, with residual fissure based 1.2 cm nodule there is scarring in the right lower lobe adjacent to the fissure unchanged since previous study associated with few bronchiectasis. Left lung is clear. PLEURA: No pleural effusion or pneumothorax. MEDIASTINUM: There is ill-defined mediastinal, prevascular and right hilar lymphadenopathy. There is subcarinal massive lymphadenopathy, and measured 3.7 x 2.8 cm. There is small right hilar lymphadenopathy No evidence of septal bowing or right heart strain. CORONARY ARTERY CALCIFICATION: None visualized on this study. CHEST WALL/AXILLA: No axillary or internal mammary lymphadenopathy. OSSEOUS STRUCTURES: No acute or suspicious osseous abnormality. UPPER ABDOMEN: There is mild splenomegaly spleen measured 12.6 cm. No reflux of contrast into the hepatic veins to suggest elevated right heart pressures. CT/CT angio chest PE protocol IMPRESSION: 1. No evidence of pulmonary embolism. 2. Near-complete resolution of right upper lobe pneumonia with residual small infiltrate in the right upper lobe and right lower lobe. 3. Mediastinal and right hilar lymphadenopathy. 4. Mild splenomegaly. VTE: negative.
--- NOTE | ~2023-07-22 | XR_ITS ---
EXAMINATION: XR CHEST CLINICAL INFORMATION: Shortness of breath COMPARISON: Chest radiograph 07/19/[address] 07/15/2023 TECHNIQUE: 2 views of the chest were obtained. FINDINGS: Increased right infrahilar opacity. Prominent pulmonary vasculature bilaterally. The heart is normal in size. No pleural effusion. No pneumothorax. XR/XR chest 2V IMPRESSION: Increased right infrahilar opacity
--- NOTE | 2023-07-22 15:26 | ECG_ITS ---
Test Reason : TACHYCARDIA Blood Pressure : / mmHG Vent. Rate : 126 BPM Atrial Rate : 126 BPM P-R Int : 142 ms QRS Dur : 066 ms QT Int : 272 ms P-R-T Axes : 012 037 026 degrees QTc Int : 393 ms Sinus tachycardia Otherwise normal ECG When compared with ECG of 14-JUL-2023 18:56, No significant change was found Referred By: Columba Bocanegra Electronically Signed By:PRIYA FAIRCHILD
[2023-07-22] MEDS: 0.9 % Sodium Chloride 1,000 ML 999 ML IV ×2 (15:47→21:19)
[2023-07-22 15:50] LABS: MANUAL DIFF FLAG NO
[2023-07-22 15:51] LABS: Basophils Percent Auto 0.1 % (0-2); Hemoglobin 8.9 g/dl (12.0-16.0); Imm Gran Abs Auto 0.18 X10*3/uL (0.00-0.03); Lymphocytes Percent Auto 10.9 % (20-40); Mean Corpuscular Hemoglobin 30.6 pg (27.0-33.0); Mean Corpuscular Volume 92.8 fL (80.0-98.0); Mean Platelet Volume 11.5 fL (9.4-12.3); Monocytes Absolute Auto 0.9 X10*3/uL (0.1-1.2); NRBC Pct Auto 0.1 /100WBC (0.0-0.2); Neutrophils Absolute Auto 15.3 x10*3/uL (2.0-8.3); Platelet Count 222 X10*3/uL (160-400); Red Blood Count 2.91 X10*6/uL (4.20-5.50); White Blood Count 18.5 X10*3/uL (4.8-10.8)
[2023-07-22 15:58] LABS: INTERNATIONAL NORM RATIO 1.3 (0.9-1.1); Prothrombin Time 15.8 SEC (11.1-13.3)
[2023-07-22 16:06] LABS: Lactic Acid 1.1 mmol/L (0.5-2.0)
--- NOTE | 2023-07-22 16:10 | ED_ITS ---
HPI - General Adult General Chief complaint: Fever Stated complaint: was in [place] few days ago, now has fever and is tachy Time Seen by Provider: 07/22/23 16:09 Source: patient Mode of arrival: ambulatory History of Present Illness HPI narrative: This is a 32-year-old female with history of HIV/aids and endorses that she is taking all medications as prescribed. She was discharged on 07/20 and then states that on Monday she began feeling short of breath and experiencing intermittent fevers once again as well as chest discomfort which worsens with deep inspiration. She denies any nausea or vomiting her urinary symptom but states she has had increased cough and denies any infections within her axilla or under her breasts and nothing within her groin and she has history of hidradenitis suppurativa Related Data Home Medications Medication Instructions Recorded Confirmed albuterol sulfate 90 mcg/actuation 2 puff inhalation Q4H PRN 07/18/22 07/14/23 aerosol inhaler (ProAir HFA) Shortness Of Breath Or Wheezing bictegravir 50 mg-emtricitabine 1 tab PO DAILY 07/18/22 07/14/23 200 mg-tenofovir alafenam 25 mg tablet (Biktarvy) atovaquone 750 mg/5 mL oral 750 mg PO BID 07/09/23 07/14/23 suspension budesonide-formoterol HFA 160 2 puff inhalation BID 07/09/23 07/14/23 mcg-4.5 mcg/actuation aerosol inhaler (Symbicort) ethambutol 400 mg tablet 1,200 mg PO DAILY 07/09/23 07/14/23 Previous Rx's Medication Instructions Recorded nicotine 14 mg/24 hr daily 1 patch transdermal Q24H #28 ea 07/11/23 transdermal patch (Nicoderm CQ) codeine 10 mg-guaifenesin 100 mg/5 5 ml PO Q6H PRN cough #237 mL 07/20/23 mL oral liquid (Guaifenesin AC) Allergies Allergy/AdvReac Type Severity Reaction Status Date / Time sulfamethoxazole Allergy Severe SWELLING Verified 07/18/22 09:02 [From BACTRIM] trimethoprim [From BACTRIM] Allergy Severe SWELLING Verified 07/18/22 09:02 Sulfa (Sulfonamide Allergy Unknown Unknown Verified 07/18/22 09:02 Antibiotics) Review of Systems Review of Systems: Pertinent positives and negatives as stated in HPI FOR[facility]LY [facility] Past Medical History Source: nursing notes reviewed Medical History AIDS Bronchiectasis Bronchopneumonia CAP (community acquired pneumonia) Coronavirus infection Hidradenitis suppurativa History of pulmonary embolus (PE) HIV (human immunodeficiency virus infection) HIV (human immunodeficiency virus infection) 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 Surgical History History of appendectomy History of excision of lesion History of tubal ligation Social History Social History Household Members: Children Housing: Apartment Do you presently have visiting nurse or other home services: No Alcohol intake: never Patient Tobacco Use Status: Current everyday Tobacco user Tobacco use type: Cigarette Cigarettes Per Day: 8 e-Cigarette/Vaping Use: Never Used Second Hand Smoke Exposure: No Substance Use Type: Marijuana Advance Directives: No Advance Directives Information Provided: No service: No Physical Exam ED Vital Signs: Vital Signs - 24 hr 07/22/23 15:21 07/22/23 17:28 07/22/23 16:00 Temperature 103.3 F H 102.0 F H Pulse Rate 127 H 127 H 118 H Respiratory Rate 22 H 95 H Blood Pressure 111/90 H 83/51 L 127/32 L Pulse Oximetry 97 95 Oxygen Delivery Method Room Air Room Air 07/22/23 17:51 Temperature 100.8 F H Pulse Rate 117 H Respiratory Rate 28 H Blood Pressure 90/46 L Pulse Oximetry 96 Oxygen Delivery Method Room Air BMI result Body Mass Index 30.3 VITAL SIGNS: Reviewed. GENERAL: Well developed, well nourished, in moderate distress. HEAD: Normocephalic/atraumatic EYES: PERRLA, EOMI EARS: Ext canals without abnormality NOSE: Nares patent bilateral OROPHARYNX: no oral lesions noted, posterior pharynx clear and non-erythematous without noted tonsillar enlargement/erythema/exudates, patient has an ulceration on the tip of her tongue as well as ulceration on the hard palate NECK: Supple, no adenopathy LUNGS: Decreased breath sounds bibasilar, no expiratory wheeze/rhonchi/rales. SpO2<97> CARDIOVASCULAR: Regular rate and rhythm without noted murmurs, no JVD or lower extremity edema. ABDOMEN: Soft, non-tender, non-distended with bowel sounds. MUSCULOSKELETAL: No tenderness, deformities, or effusions noted on gross inspection. EXTREMITIES: No cyanosis, clubbing or edema. SKIN: Inspection of the skin reveals no rashes NEUROLOGIC: Alert and oriented x 4. Strength and sensation to light touch were grossly intact x 4. Medications Administered Discontinued Medications Generic Name Dose Route Start Last Admin Trade Name Freq PRN Reason Stop Dose Admin Acetaminophen 975 mg 07/22/23 16:10 07/22/23 16:25 Acetaminophen 325 Mg Tablet PO 07/22/23 16:11 975 mg ONCE ONE Administration Sodium Chloride 1,000 mls @ 999 mls/hr 07/22/23 15:26 07/22/23 17:30 Ns IV 07/22/23 16:26 Infused .Q1H1M STA Infusion Cefepime HCl 2 gm/ Sodium 50 mls @ 100 mls/hr 07/22/23 15:26 07/22/23 17:30 Chloride IV 07/22/23 15:55 Infused ONCE ONE Infusion Magnesium Sulfate/Dextrose 1 gm in 100 mls @ 300 mls/hr 07/22/23 16:13 07/22/23 17:26 Magnesium Sulfate/D5w IV 07/22/23 16:32 300 mls/hr ONCE ONE Administration Iohexol 100 ml 07/22/23 18:25 07/22/23 18:25 Iohexol 350 Mg/Ml 100 Ml Infus..Btl IV 07/22/23 18:26 65 ml ONCE ONE Administration Medical Decision Making Medical Decision Making [facility] Narrative: 1645: 32-year-old female with AIDS and currently being treated for DEANGELO and on atovaquone. She was recently discharged on 07/20 and now presents tachycardic, febrile. I reviewed all previous microbiology reports which are negative for significant gram stain or culture growth. There is no obvious infection, a lthough I could attribute the noted leukocytosis to patient's discharge on steroids this does not account for her febrile state. She has no cognitive or altered mental status presentation nor history of this therefore in addition to the absence of neck pain I do not suspect underlying meningitis/encephalopathy. There does remain the possibility that patient has an underlying endocarditis that may be contributing to these recurrent symptoms. She is saturating 97% on room air and therefore unclear the exact reason for her subjective feelings shortness of breath. She does have a remote history of PE, CT angio on 07/09 was negative for PE. Patient receiving antibiotics, IV fluids, magnesium sulfate for low magnesium, antipyretic, chest x-ray. On review of final note by infectious disease the specialist clearly states that patient cannot be compliant with antivirals with absent CD4 counts and grossly elevated viral loads. I think that there is the very real possibility of an endocarditis. I reviewed all investigations, hematologic indices demonstrate a leukocytosis which as mentioned above may be secondary to steroid use, however is consistent with patient's febrile state, normocytic anemia chronically stable and no thrombocytopenia. PT-15.8 and INR-1.3. Chemistry indices are negative for potassium derangement but magnesium and is noted to be low and was repleted with 1 g of magnesium sulfate, otherwise liver enzymes are grossly within normal limits and there is no CHRIS. Urine toxicology is positive for both opiates and marijuana the latter of which patient endorsed during her interview. Urinalysis negative for UTI or hematuria. Viral testing is negative. Increased right infrahilar opacity, suggestive of underlying pneumonia which is likely contributing to patient's febrile state and the leukocytosis, patient did receive antibiotics already. Due to history of PE and hypotension, proceeded with CT angio with PE protocol to ensure no VTE. 1825: I discussed case with inpatient hospitalist who accepts admission. Differential Diagnosis Differential Diagnoses: The differential diagnosis associated with the presentation includes Please see the discussion above Admission/Observation Consideration of admission/observation: Escalation of care including admission/observation considered Please see the discussion above Consult Healthcare Provider Management of the patient was discussed with: Hospitalist Please see the discussion above Lab Data MDM Lab Attestation statement: I reviewed the patient's lab results. Please see the discussion above 07/22/23 15:44 07/22/23 15:43 Labs: Lab Results 07/22/23 07/22/23 07/22/23 Range/Units 15:43 15:43 15:44 WBC 18.5 H (4.8-10.8) X10*3/uL RBC 2.91 L (4.20-5.50) X10*6/uL Hgb 8.9 L (12.0-16.0) g/dl Hct 27.0 L (37.0-47.0) % MCV 92.8 (80.0-98.0) fL MCH 30.6 (27.0-33.0) pg MCHC 33.0 (31.0-35.0) g/dl RDW 18.0 H (11.0-16.0) % Plt Count 222 (160-400) X10*3/uL MPV 11.5 (9.4-12.3) fL Immature Gran % (Auto) 1.0 H (0.0-0.4) % Neut % (Auto) 83.0 H (45-73) % Lymph % (Auto) 10.9 L (20-40) % Traverse % (Auto) 5.0 (2-11) % Eos % (Auto) 0.0 (0-4) % Baso % (Auto) 0.1 (0-2) % Lymph # (Auto) 2.0 (1.2-4.9) X10*3/uL Traverse # (Auto) 0.9 (0.1-1.2) X10*3/uL Eos # (Auto) 0.0 (0.0-0.4) X10*3/uL Baso # (Auto) 0.0 (0.0-0.2) X10*3/uL Abs Immat Gran (auto) 0.18 H (0.00-0.03) X10*3/uL Absolute Neuts (auto) 15.3 H (2.0-8.3) x10*3/uL Absolute Nucleated RBC 0.020 H (0.0-0.012) X10*3/uL Nucleated RBC % (auto) 0.1 (0.0-0.2) /100WBC PT (11.1-13.3) SEC INR (0.9-1.1) Sodium 131 L (135-145) mmol/L Potassium 3.9 (3.3-5.1) mmol/L Chloride 98 (96-108) mmol/L Carbon Dioxide 22 (22-29) mmol/L Anion Gap 15 (12-20) BUN 14 (9-16) mg/dL Creatinine 0.76 (0.5-1.4) mg/dL Estim Creat Clear Calc 117.9 Estimated GFR > 60 Random Glucose 87 (60-115) mg/dL Lactic Acid (0.5-2.0) mmol/L Calcium 9.0 (8.4-10.2) mg/dL Magnesium 1.4 L* (1.6-2.6) mg/dL Total Bilirubin 1.0 (0.0-1.0) mg/dL Direct Bilirubin 0.3 (0.0-0.5) mg/dL AST 30 (5-31) U/L ALT 30 (0-31) U/L Alkaline Phosphatase 100 (39-117) U/L Troponin I High Sens 4.7 (<3.5-17.0) ng/L Total Protein 7.1 (6.5-8.0) g/dL Albumin 3.4 L (3.5-5.0) g/dL Urine Color Urine Appearance Urine pH (5.0-9.0) Ur Specific Hope (1.005-1.025) Urine Protein (Neg-Trace) mg/dL Urine Glucose (UA) (Negative) mg/dL Urine Ketones (Negative) mg/dL Urine Blood (Negative) Urine Nitrite (Negative) Ur Leukocyte Esterase (Negative) Urine RBC (0-2) /HPF Urine WBC (0-5) /HPF Ur Squamous Epith Cells (0-2) /HPF Urine Bacteria (None Seen) Hyaline Casts (0-2) /LPF Urine Opiates Screen (Not Detect) Urine Fentanyl Screen (Not Detect) Ur Barbiturates Screen (Not Detect) Ur Phencyclidine Scrn (Not Detect) Ur Amphetamines Screen (Not Detect) U Benzodiazepines Scrn (Not Detect) Urine Cocaine Screen (Not Detect) U Marijuana (THC) Screen (Not Detect) COVID-19 (SUMI) (Negative) COVID-19 Clin Com Influenza Type A (PCR) (Negative) Influenza Type B (PCR) (Negative) RSV RNA Qual (PCR) (Negative) SARS-CoV-2 RNA (RT-PCR) (Negative) 07/22/23 07/22/23 07/22/23 Range/Units 15:44 15:44 15:58 WBC (4.8-10.8) X10*3/uL RBC (4.20-5.50) X10*6/uL Hgb (12.0-16.0) g/dl Hct (37.0-47.0) % MCV (80.0-98.0) fL MCH (27.0-33.0) pg MCHC (31.0-35.0) g/dl RDW (11.0-16.0) % Plt Count (160-400) X10*3/uL MPV (9.4-12.3) fL Immature Gran % (Auto) (0.0-0.4) % Neut % (Auto) (45-73) % Lymph % (Auto) (20-40) % Traverse % (Auto) (2-11) % Eos % (Auto) (0-4) % Baso % (Auto) (0-2) % Lymph # (Auto) (1.2-4.9) X10*3/uL Traverse # (Auto) (0.1-1.2) X10*3/uL Eos # (Auto) (0.0-0.4) X10*3/uL Baso # (Auto) (0.0-0.2) X10*3/uL Abs Immat Gran (auto) (0.00-0.03) X10*3/uL Absolute Neuts (auto) (2.0-8.3) x10*3/uL Absolute Nucleated RBC (0.0-0.012) X10*3/uL Nucleated RBC % (auto) (0.0-0.2) /100WBC PT 15.8 H D (11.1-13.3) SEC INR 1.3 H (0.9-1.1) Sodium (135-145) mmol/L Potassium (3.3-5.1) mmol/L Chloride (96-108) mmol/L Carbon Dioxide (22-29) mmol/L Anion Gap (12-20) BUN (9-16) mg/dL Creatinine (0.5-1.4) mg/dL Estim Creat Clear Calc Estimated GFR Random Glucose (60-115) mg/dL Lactic Acid 1.1 (0.5-2.0) mmol/L Calcium (8.4-10.2) mg/dL Magnesium (1.6-2.6) mg/dL Total Bilirubin (0.0-1.0) mg/dL Direct Bilirubin (0.0-0.5) mg/dL AST (5-31) U/L ALT (0-31) U/L Alkaline Phosphatase (39-117) U/L Troponin I High Sens (<3.5-17.0) ng/L Total Protein (6.5-8.0) g/dL Albumin (3.5-5.0) g/dL Urine Color Urine Appearance Urine pH (5.0-9.0) Ur Specific Hope (1.005-1.025) Urine Protein (Neg-Trace) mg/dL Urine Glucose (UA) (Negative) mg/dL Urine Ketones (Negative) mg/dL Urine Blood (Negative) Urine Nitrite (Negative) Ur Leukocyte Esterase (Negative) Urine RBC (0-2) /HPF Urine WBC (0-5) /HPF Ur Squamous Epith Cells (0-2) /HPF Urine Bacteria (None Seen) Hyaline Casts (0-2) /LPF Urine Opiates Screen (Not Detect) Urine Fentanyl Screen (Not Detect) Ur Barbiturates Screen (Not Detect) Ur Phencyclidine Scrn (Not Detect) Ur Amphetamines Screen (Not Detect) U Benzodiazepines Scrn (Not Detect) Urine Cocaine Screen (Not Detect) U Marijuana (THC) Screen (Not Detect) COVID-19 (SUMI) Negative (Negative) COVID-19 Clin Com See Note Influenza Type A (PCR) (Negative) Influenza Type B (PCR) (Negative) RSV RNA Qual (PCR) (Negative) SARS-CoV-2 RNA (RT-PCR) (Negative) 07/22/23 07/22/23 07/22/23 Range/Units 16:18 16:33 16:33 WBC (4.8-10.8) X10*3/uL RBC (4.20-5.50) X10*6/uL Hgb (12.0-16.0) g/dl Hct (37.0-47.0) % MCV (80.0-98.0) fL MCH (27.0-33.0) pg MCHC (31.0-35.0) g/dl RDW (11.0-16.0) % Plt Count (160-400) X10*3/uL MPV (9.4-12.3) fL Immature Gran % (Auto) (0.0-0.4) % Neut % (Auto) (45-73) % Lymph % (Auto) (20-40) % Traverse % (Auto) (2-11) % Eos % (Auto) (0-4) % Baso % (Auto) (0-2) % Lymph # (Auto) (1.2-4.9) X10*3/uL Traverse # (Auto) (0.1-1.2) X10*3/uL Eos # (Auto) (0.0-0.4) X10*3/uL Baso # (Auto) (0.0-0.2) X10*3/uL Abs Immat Gran (auto) (0.00-0.03) X10*3/uL Absolute Neuts (auto) (2.0-8.3) x10*3/uL Absolute Nucleated RBC (0.0-0.012) X10*3/uL Nucleated RBC % (auto) (0.0-0.2) /100WBC PT (11.1-13.3) SEC INR (0.9-1.1) Sodium (135-145) mmol/L Potassium (3.3-5.1) mmol/L Chloride (96-108) mmol/L Carbon Dioxide (22-29) mmol/L Anion Gap (12-20) BUN (9-16) mg/dL Creatinine (0.5-1.4) mg/dL Estim Creat Clear Calc Estimated GFR Random Glucose (60-115) mg/dL Lactic Acid (0.5-2.0) mmol/L Calcium (8.4-10.2) mg/dL Magnesium (1.6-2.6) mg/dL Total Bilirubin (0.0-1.0) mg/dL Direct Bilirubin (0.0-0.5) mg/dL AST (5-31) U/L ALT (0-31) U/L Alkaline Phosphatase (39-117) U/L Troponin I High Sens (<3.5-17.0) ng/L Total Protein (6.5-8.0) g/dL Albumin (3.5-5.0) g/dL Urine Color Yellow Urine Appearance Clear Urine pH 6.0 (5.0-9.0) Ur Specific Hope 1.010 (1.005-1.025) Urine Protein 100 (2+) H (Neg-Trace) mg/dL Urine Glucose (UA) Negative (Negative) mg/dL Urine Ketones Negative (Negative) mg/dL Urine Blood Negative (Negative) Urine Nitrite Negative (Negative) Ur Leukocyte Esterase Negative (Negative) Urine RBC 0-2 (0-2) /HPF Urine WBC 0-5 (0-5) /HPF Ur Squamous Epith Cells 0-2 (0-2) /HPF Urine Bacteria None Seen (None Seen) Hyaline Casts 0-2 (0-2) /LPF Urine Opiates Screen POSITIVE H (Not Detect) Urine Fentanyl Screen Not Detected (Not Detect) Ur Barbiturates Screen Not Detected (Not Detect) Ur Phencyclidine Scrn Not Detected (Not Detect) Ur Amphetamines Screen Not Detected (Not Detect) U Benzodiazepines Scrn Not Detected (Not Detect) Urine Cocaine Screen Not Detected (Not Detect) U Marijuana (THC) Screen POSITIVE H (Not Detect) COVID-19 (SUMI) (Negative) COVID-19 Clin Com Influenza Type A (PCR) NEGATIVE (Negative) Influenza Type B (PCR) NEGATIVE (Negative) RSV RNA Qual (PCR) NEGATIVE (Negative) SARS-CoV-2 RNA (RT-PCR) NEGATIVE (Negative) Radiology Impression Radiologist Impression: Please see the discussion above External Record Review External record reviewed: Inpatient record, Outpatient record, Prior outpatient labs and Prior outpatient radiology Chronic Conditions Patient?s care impacted by: Other AIDS Critical Care Time Critical Care Time Critical Care Time: Yes Total Critical Care Time: 45 Attestation: I personally attest to this time spent taking care of the patient. Discharge Plan Discharge Clinical Impression: AIDS, Sepsis, Pneumonia, Hypomagnesemia Patient Disposition: Admitted As Inpatient Prescriptions: No Action albuterol sulfate [ProAir HFA] 90 mcg/actuation HFA aerosol inhaler 2 puff inhalation Q4H PRN (Reason: Shortness Of Breath Or Wheezing) Biktarvy 50-200-25 mg tablet 1 tab PO DAILY ethambutol 400 mg tablet 1,200 mg PO DAILY atovaquone 750 mg/5 mL suspension 750 mg PO BID budesonide-formoterol [Symbicort] 160-4.5 mcg/actuation HFA aerosol inhaler 2 puff inhalation BID nicotine [Nicoderm CQ] 14 mg/24 hr patch 24 hour 1 patch transdermal Q24H Qty: 28 0RF codeine-guaifenesin [Guaifenesin AC] 10-100 mg/5 mL liquid 5 ml PO Q6H PRN (Reason: cough) Qty: 237 0RF
[2023-07-22 16:12] LABS: Troponin-I High Sensitivity 4.7 ng/L (<3.5-17.0)
[2023-07-22 16:13] LABS: Alanine Aminotransferase 30 U/L (0-31); Albumin Level 3.4 g/dL (3.5-5.0); Alkaline Phosphatase 100 U/L (39-117); Anion Gap 15 (12-20); Aspartate Amino Transferase 30 U/L (5-31); Bilirubin Direct 0.3 mg/dL (0.0-0.5); Blood Urea Nitrogen 14 mg/dL (9-16); Carbon Dioxide 22 mmol/L (22-29); Chloride 98 mmol/L (96-108); Creatinine Clr Calc Pharmacy 117.9; Estimated Glomerular Filt Rate > 60; Glucose Random 87 mg/dL (60-115); Magnesium 1.4 mg/dL (1.6-2.6); Potassium 3.9 mmol/L (3.3-5.1); Sodium 131 mmol/L (135-145); Total Protein 7.1 g/dL (6.5-8.0)
[2023-07-22 16:17] LABS: COVID-19 Test Negative (Negative); IDNOW Serial# 6674DD1D
[2023-07-22] MEDS: cefEPime HCl 2 GM in 0.9 % Sodium Chloride 50 ML IV (16:25)
[2023-07-22] MEDS: Acetaminophen 325 MG TABLET 975 MG PO (16:25)
[2023-07-22 16:40] LABS: Appearance Urine Clear; Color Urine Yellow; Glucose Urine UA Negative (Negative); Leukocyte Esterase Urine Negative (Negative); Nitrite Urine Negative (Negative); UMIC TRIGGER UACC YES; Urine Blood Negative (Negative); Urine Ketones Negative (Negative); Urine Protein 100 (2+) mg/dL (Neg-Trace)
[2023-07-22 16:42] LABS: Bacteria Urine None Seen (None Seen); Hyaline Casts Urine 0-2 /LPF (0-2); RBC Urine 0-2 /HPF (0-2); Squamous Epithelial Cell Urine 0-2 /HPF (0-2); WBC Urine 0-5 /HPF (0-5)
[2023-07-22 16:48] LABS: Amphetamine Screen Urine Not Detected (Not Detect); Barbiturates, Urine Not Detected (Not Detect); Benzodiazepines Screen Urine Not Detected (Not Detect); Cannabinoid Screen Urine POSITIVE (Not Detect); Cocaine Screen Urine Not Detected (Not Detect); Fentanyl, urine Not Detected (Not Detect); Opiate Screen Urine POSITIVE (Not Detect); Phencyclidine Screen Urine Not Detected (Not Detect)
[2023-07-22] MEDS: Magnesium Sulfate/D5W 1 GM/100 ML PIGGYBACK IV (17:26)
--- NOTE | 2023-07-22 17:40 | PC.NURSE ---
patient vitals taken, patient hypotensive. 1000 ml NS started per MD verbal order
[2023-07-22 18:16] LABS: Influenza A PCR NEGATIVE (Negative); Influenza B PCR NEGATIVE (Negative); Resp Syncy Virus RNA Qual PCR NEGATIVE (Negative); SARS COV2 PCR INHOUSE NEGATIVE (Negative)
[2023-07-22] MEDS: iohexoL 350 MG/ML 100 ML INFUS..BTL IV (18:25)
--- NOTE | 2023-07-22 18:39 | PC.NURSE ---
awaiting results of ct scan, pending admission to hospital
--- NOTE | 2023-07-22 18:54 | PHA.MEDREC ---
Pharmacy Consult ? Medication Reconciliation Pharmacy has completed the medication reconciliation. spoke with patient to confirm medications. Reports not taking the second dose of the atovaquone today.
--- NOTE | 2023-07-22 19:29 | PM.IMHP ---
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 who is a current everyday marijuana and 6-7 cigarette per day smoker presented to the ED earlier today for evaluation of upper respiratory symptoms ongoing intermittently xnearly 2 weeks.? She states she has had fevers up to 105 as well as occasionally productive cough, shortness of breath and wheezing, and left-sided pleuritic chest pain.? She denies any known sick contacts.? Denies any sore throat, sinus pressure, rhinorrhea, abdominal pain, nausea, vomiting, diarrhea, lightheadedness, headache, or retrosternal chest pressure.? She is not vaccinated against COVID-19.? She is currently being treated for MAC initially diagnosed in 07/2022 and reports compliance with atovaquone, azithromycin, and ethambutol. She follows with Dr. Melgar in ID at [facility]. She has been admitted twice within the last 2 weeks for, the first on 07/10 thought to be exacerbation of bronchiectasis by ID and discharged home given significant improvement in respiratory status. She returned and was admitted 07/14 due to return of fevers and similar symptoms to today. She was treated with broad-spectrum antibiotics and given concern for aspergillosis she was also treated with IV voriconazole and continued on atovaquone for PCP and ethambutol for MAC infection. She underwent bronchoscopy by pulmonology on 07/19 and transbronchial biopsies negative for GMS and AFB microorganisms. There is high suspicion for medication noncompliance given undetectable CD4 count and viral load over 500,000. Patient again does report compliance. On arrival today, patient febrile to 103.3, tachycardic to 127, tachypneic to 28. No hypoxia. Temperature improved to 100.8 with Tylenol. She did develop hypotension 283/51 which responded favorably to IV fluids with blood pressure on admission of 99/60. There is a leukocytosis of 18.5. Renal function normal, electrolyte levels normal except for sodium of 131. Magnesium 1.4. Troponin 4.7. Urine test pending. Urinalysis unremarkable. Urine tox screen positive for opiates and marijuana. Negative for COVID-19, influenza, COVID-19. Chest x-ray shows increased right infrahilar opacity. Chest CTA pending. In the ED, given 1 g IV magnesium, IV cefepime, IV Zosyn. Review of Systems Review of Systems: General: No malaise, unintentional weight loss. +fevers HEENT: No blurred vision, diplopia. No sore throat, nasal congestion, rhinorrhea, sinus pain, ear pain Cardiovascular: +pleuritic CP. No chest pressure, palpitations, or leg edema Respiratory: +sob, +wheezing, +cough GI: No abdominal pain, nausea, vomiting, diarrhea, constipation, melena, hematochezia : No dysuria, hematuria, increased urinary frequency, decreased urinary output MSK: No myalgia, back pain Neuro: No headaches, weakness, paresthesias Skin: No rashes or lesions FOR[facility]LY [facility], [facility] Medical History AIDS Bronchiectasis Bronchopneumonia CAP (community acquired pneumonia) Coronavirus infection Hidradenitis suppurativa History of pulmonary embolus (PE) HIV (human immunodeficiency virus infection) HIV (human immunodeficiency virus infection) 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 Surgical History History of appendectomy History of excision of lesion History of tubal ligation Social History Household Members: Children Housing: Apartment Do you presently have visiting nurse or other home services: No Alcohol intake: never Patient Tobacco Use Status: Current everyday Tobacco user Tobacco use type: Cigarette Cigarettes Per Day: 8 e-Cigarette/Vaping Use: Never Used Second Hand Smoke Exposure: No Substance Use Type: Marijuana Advance Directives: No Advance Directives Information Provided: No service: No Meds Allergies Allergy/AdvReac Type Severity Reaction Status Date / Time sulfamethoxazole Allergy Severe SWELLING Verified 07/18/22 09:02 [From BACTRIM] trimethoprim [From BACTRIM] Allergy Severe SWELLING Verified 07/18/22 09:02 Sulfa (Sulfonamide Allergy Unknown Unknown Verified 07/18/22 09:02 Antibiotics) Active Medications: Current Medications Acetaminophen (Acetaminophen 325 Mg Tablet) 650 mg PO Q6H PRN PRN Reason: Pain, Mild (Pain Scale 1-3) Docusate Sodium (Docusate Sodium 100 Mg Capsule) 100 mg PO DAILY PRN PRN Reason: Constipation Enoxaparin Sodium (Enoxaparin Sodium 40 Mg/0.4 Ml Syringe) 40 mg SUBCUT Q24H AIDA Piperacillin Sod/Tazobactam (Sod 4.5 gm/ Sodium Chloride) 100 mls @ 200 mls/hr IV Q6H AIDA Ondansetron HCl (Ondansetron Hcl 4 Mg/2 Ml Vial) 4 mg IVPUSH Q8H PRN PRN Reason: Nausea and Vomiting Pharmacy Consult (Consult Rx Vancomycin Dosing) 1 each MISCELLANE DAILY PRN PRN Reason: Consult order Sodium Chloride (0.9 % Sodium Chloride Flush 3 Ml Syringe) 3 ml IVFLUSH QSHIFT AIDA Home Medications Medication Instructions Recorded Confirmed Last Taken Type albuterol sulfate 90 mcg/actuation 2 puff inhalation Q4H PRN 07/18/22 07/22/23 07/22/23 History aerosol inhaler (ProAir HFA) Shortness Of Breath Or Wheezing bictegravir 50 mg-emtricitabine 1 tab PO DAILY 07/18/22 07/22/23 07/22/23 History 200 mg-tenofovir alafenam 25 mg tablet (Biktarvy) atovaquone 750 mg/5 mL oral 750 mg PO BID 07/09/23 07/22/23 07/22/23 History suspension budesonide-formoterol HFA 160 2 puff inhalation Q6H PRN 07/09/23 07/22/23 07/22/23 History mcg-4.5 mcg/actuation aerosol Shortness Of Breath Or Wheezing inhaler (Symbicort) ethambutol 400 mg tablet 1,200 mg PO DAILY 07/09/23 07/22/23 07/22/23 History Physical Exam Vital Signs and Narrative: Vital Signs: Last Vital Signs Temp 100.8 F H 07/22/23 17:51 Pulse 111 H 07/22/23 18:47 Resp 28 H 07/22/23 17:51 BP 99/60 07/22/23 18:47 Pulse Ox 96 07/22/23 17:51 O2 Del Method Room Air 07/22/23 17:51 BMI result Body Mass Index 30.3 Constitutional - Awake and Alert, No apparent distress Eyes - PERRLA, EOMI Mouth- sores on hard and soft palate Cardiovascular - S1S2, RRR, No edema Respiratory - Normal lung expansion, Normal respiratory effort, No respiratory distress, diffuse coarse lung sounds with rhonchi bilaterally and diminished lung sounds in the bases Gastrointestinal - mild ruq ttp. ND; +BS; No rebound or guarding Extremities - no calf tenderness bilaterally, no swelling Skin - Warm/Dry Neurological - Alert & oriented x3 Psychological - Appropriate affect Results Labs 07/22/23 15:44 07/22/23 15:43 Labs: Laboratory Results - last 24 hr 07/22/23 07/22/23 07/22/23 15:43 15:44 15:44 MCV 92.8 MCH 30.6 MCHC 33.0 RDW 18.0 H Plt Count 222 MPV 11.5 Immature Gran % (Auto) 1.0 H Neut % (Auto) 83.0 H Lymph % (Auto) 10.9 L [place] % (Auto) 5.0 Eos % (Auto) 0.0 Baso % (Auto) 0.1 Lymph # (Auto) 2.0 [place] # (Auto) 0.9 Eos # (Auto) 0.0 Baso # (Auto) 0.0 Abs Immat Gran (auto) 0.18 H Absolute Neuts (auto) 15.3 H Absolute Nucleated RBC 0.020 H Nucleated RBC % (auto) 0.1 PT 15.8 H D INR 1.3 H Anion Gap 15 Estim Creat Clear Calc 117.9 Estimated GFR > 60 Random Glucose 87 Lactic Acid Calcium 9.0 Magnesium 1.4 L* Total Bilirubin 1.0 Direct Bilirubin 0.3 AST 30 ALT 30 Alkaline Phosphatase 100 Total Protein 7.1 Albumin 3.4 L Urine Color Urine Appearance Urine pH Ur Specific [place] Urine Protein Urine Glucose (UA) Urine Ketones Urine Blood Urine Nitrite Ur Leukocyte Esterase Urine RBC Urine WBC Ur Squamous Epith Cells Urine Bacteria Hyaline Casts Urine Opiates Screen Urine Fentanyl Screen Ur Barbiturates Screen Ur Phencyclidine Scrn Ur Amphetamines Screen U Benzodiazepines Scrn Urine Cocaine Screen U Marijuana (THC) Screen COVID-19 ([facility]) COVID-19 Clin Com Influenza Type A (PCR) Influenza Type B (PCR) RSV RNA Qual (PCR) SARS-CoV-2 RNA (RT-PCR) 07/22/23 07/22/23 07/22/23 15:44 15:58 16:18 MCV MCH MCHC RDW Plt Count MPV Immature Gran % (Auto) Neut % (Auto) Lymph % (Auto) [place] % (Auto) Eos % (Auto) Baso % (Auto) Lymph # (Auto) [place] # (Auto) Eos # (Auto) Baso # (Auto) Abs Immat Gran (auto) Absolute Neuts (auto) Absolute Nucleated RBC Nucleated RBC % (auto) PT INR Anion Gap Estim Creat Clear Calc Estimated GFR Random Glucose Lactic Acid 1.1 Calcium Magnesium Total Bilirubin Direct Bilirubin AST ALT Alkaline Phosphatase Total Protein Albumin Urine Color Urine Appearance Urine pH Ur Specific [place] Urine Protein Urine Glucose (UA) Urine Ketones Urine Blood Urine Nitrite Ur Leukocyte Esterase Urine RBC Urine WBC Ur Squamous Epith Cells Urine Bacteria Hyaline Casts Urine Opiates Screen Urine Fentanyl Screen Ur Barbiturates Screen Ur Phencyclidine Scrn Ur Amphetamines Screen U Benzodiazepines Scrn Urine Cocaine Screen U Marijuana (THC) Screen COVID-19 ([facility]) Negative COVID-19 Clin Com See Note Influenza Type A (PCR) NEGATIVE Influenza Type B (PCR) NEGATIVE RSV RNA Qual (PCR) NEGATIVE SARS-CoV-2 RNA (RT-PCR) NEGATIVE 07/22/23 07/22/23 16:33 16:33 MCV MCH MCHC RDW Plt Count MPV Immature Gran % (Auto) Neut % (Auto) Lymph % (Auto) [place] % (Auto) Eos % (Auto) Baso % (Auto) Lymph # (Auto) [place] # (Auto) Eos # (Auto) Baso # (Auto) Abs Immat Gran (auto) Absolute Neuts (auto) Absolute Nucleated RBC Nucleated RBC % (auto) PT INR Anion Gap Estim Creat Clear Calc Estimated GFR Random Glucose Lactic Acid Calcium Magnesium Total Bilirubin Direct Bilirubin AST ALT Alkaline Phosphatase Total Protein Albumin Urine Color Yellow Urine Appearance Clear Urine pH 6.0 Ur Specific [place] 1.010 Urine Protein 100 (2+) H Urine Glucose (UA) Negative Urine Ketones Negative Urine Blood Negative Urine Nitrite Negative Ur Leukocyte Esterase Negative Urine RBC 0-2 Urine WBC 0-5 Ur Squamous Epith Cells 0-2 Urine Bacteria None Seen Hyaline Casts 0-2 Urine Opiates Screen POSITIVE H Urine Fentanyl Screen Not Detected Ur Barbiturates Screen Not Detected Ur Phencyclidine Scrn Not Detected Ur Amphetamines Screen Not Detected U Benzodiazepines Scrn Not Detected Urine Cocaine Screen Not Detected U Marijuana (THC) Screen POSITIVE H COVID-19 ([facility]) COVID-19 Clin Com Influenza Type A (PCR) Influenza Type B (PCR) RSV RNA Qual (PCR) SARS-CoV-2 RNA (RT-PCR) Imaging Radiologist's Impressions: Impressions Chest X-Ray 07/22/23 16:09 IMPRESSION: Increased right infrahilar opacity Assessment and Plan (1) AIDS: Status: Acute (2) Sepsis: Status: Acute (3) Pneumonia: Status: Acute (4) Hypomagnesemia: Status: Acute (5) Lung mass: Status: Acute Plan 32-year-old female with history of HIV/aids, 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 who is a current everyday marijuana and 6-7 cigarette per day smoker admitted for further management of bronchopneumonia with sepsis in AIDS patient. #Acute right-sided perihilar pneumonia with severe sepsis in AIDS patient -leukocytosis 18.5, tachycardia, tachypnea. Lactic acid normal 1.1. Single episode hypotension improved with IV fluids. -CXR shows enlarging perihilar mass. Chest CTA pending -bronchoscopy with biopsies negative for AFB and GMS. Cover empirically with IV voriconazole (initiated 07/22) -IV vancomycin and Zosyn (initiated 07/22) -prednisone 40 mg daily (initiated 07/22) -computer all p.r.n. -infectious disease consult -Thoracic surgery consult for deeper tissue biopsy of right perihilar mass -symptomatic management -droplet precautions -Follow CBC, cultures #Acute hypomagnesemia -repleted in ed, follow lytes #MAC infection -diagnosed 08/11, appears resolving on CTA chest -Continue atovaquone, ethambutol.? Hold azithromycin as patient on Zosyn -infectious disease consult -airborne precautions # oral candidiasis -IV voriconazole # HIV with AIDS -last CD4 count 18 with viral load 50 10/11, with MAC infection -Recheck CD4 count and HIV viral load -ID consult -continue Biktarvy # bronchiectasis -continue Symbicort, albuterol p.r.n. -albuterol and prednisone as above # cigarette smoker -nicotine patch for NRT -smoking cessation counseling provided DVT prophylaxis-Lovenox Full code Patient requires inpatient stay at least 2 midnights for management of acute perihilar pneumonia with sepsis in aids patient requiring IV antibiotics, empiric antifungal therapy, close observation, expert consultation Time Spent With Patient Time: Total time managing care of this patient today ____ minutes. Quality Stroke Does the patient have a stroke diagnosis?: No VTE Prior VTE?: Yes VTE Risk Level:: Medical - moderate - high VTE Device Contraindication: Treatment Not Indicated VTE Drug Contraindication: N/A - Med Ordered
[2023-07-22] MEDS: Piperacillin Sodium/Tazobactam 4.5 GM in 0.9 % Sodium Chloride 100 ML IV (19:36)
--- NOTE | 2023-07-22 19:45 | PC.NURSE ---
This physician underwriter assumed care of this Pt at 1900. Pt A&Ox4, reports 10/10 all over body pain, productive cough sometimes , reports SOB with exertion, SpO2 95% on RA, RR 21, lungs sounds diminished to right side. Pt getting OOB independently for bedside commode. BP soft.
[2023-07-22 19:53] LABS: HCG Quantitative < 2 mIU/mL
[2023-07-22] MEDS: Acetaminophen 325 MG TABLET 650 MG PO (21:17)
[2023-07-22] MEDS: vancomycin/NS 2,000 MG/500 ML PLAST..BAG 250 MG IV (21:17)
--- NOTE | 2023-07-22 21:23 | PC.NURSE ---
Pt up to bedside commode, reports SOB with exertion, tachycardic, febrile. Meds given as documented.
[2023-07-22] MEDS: Atovaquone 750 MG/5 ML ORAL.SUSP PO (21:26)
--- NOTE | 2023-07-22 21:45 | PHA.PROG ---
Admission Date/Time: July 22, 2023 19:12 Indication: RESP Weight in k.2 kg Serum Creatinine - Last 168 Hours 07/22/23 15:43 Creatinine 0.76 Estimated CrCl and GFR - Last 168 Hours 07/22/23 15:43 Estim Creat Clear Calc 117.9 Estimated GFR > 60 Vancomycin Loading Dose: 2000 Current Vancomycin Dosing Regimen: 1250 Q 12 Vancomycin Monitoring using AUC goal of 400 - 600 range with trough as surrogate marker: 454 Date and Time for next Vancomycin Level to be drawn: 06/24 @ 0800 Pharmacist Comments on Vancomycin Plan: Vancomycin dosing will take advantage of TVShow Time as a clinical decision support tool that uses Bayesian modeling to calculate individual patient's pharmacokinetic parameters and forecast the patient's drug concentration time course with the target goal AUC 24 range of 400 - 600 mg/L/hr.
[2023-07-22] MEDS: Ketorolac Tromethamine 30 MG/ML VIAL IVPUSH (22:40)
--- NOTE | 2023-07-22 22:41 | PC.NURSE ---
Morphine bot given at this time d/t BP,Pt also febrile with no effectiveness of PO tylenol, provider aware, new order given per JAN.
--- NOTE | 2023-07-22 22:56 | PC.NURSE ---
RN to RN report given to Meg pt will be transported to [facility], pt aware of plan.
[2023-07-23] VITALS (7 sets, daily range): BP systolic 85–104; BP diastolic 50–63; PULSE 64–93; RESP 16–20; TEMP 34.9–36.7; O2SAT 98–100; BMI 30.2
[2023-07-23] MEDS: 0.9 % Sodium Chloride Flush 3 ML SYRINGE IVFLUSH ×3 (00:25→16:44)
--- NOTE | 2023-07-23 00:30 | PC.NURSE ---
NARCOTICS AND PT'S WILSON COUNTED WITH MARILYN BRUNER RN, MEDS TO CLIN SUP TO BE LOCKED UNTIL PHARMACY OPENS IN AM, PT DECLINED OFFER TO HAVE MONEY/JEWELRY LOCKED IN SAFE.
[2023-07-23] MEDS: Piperacillin Sodium/Tazobactam 4.5 GM in 0.9 % Sodium Chloride 100 ML IV ×2 (01:11→07:54)
[2023-07-23 06:53] LABS: Basophils Percent Auto 0.2 % (0-2); Eosinophils Percent Auto 0.1 % (0-4); Hematocrit 27.8 % (37.0-47.0); Hemoglobin 8.8 g/dl (12.0-16.0); Imm Gran Abs Auto 0.12 X10*3/uL (0.00-0.03); Lymphocytes Absolute Auto 0.1 X10*3/uL (1.2-4.9); Lymphocytes Percent Auto 0.7 % (20-40); MANUAL DIFF FLAG SCAN; Mean Corpuscular HGB Conc 31.7 g/dl (31.0-35.0); Mean Corpuscular Hemoglobin 30.4 pg (27.0-33.0); Mean Corpuscular Volume 96.2 fL (80.0-98.0); Mean Platelet Volume 11.6 fL (9.4-12.3); Monocytes Absolute Auto 0.1 X10*3/uL (0.1-1.2); Monocytes Percent Auto 0.9 % (2-11); Neutrophils Absolute Auto 11.3 x10*3/uL (2.0-8.3); Neutrophils Percent Auto 97.1 % (45-73); Platelet Count 166 X10*3/uL (160-400); Red Blood Count 2.89 X10*6/uL (4.20-5.50); Red Cell Distribution Width 18.2 % (11.0-16.0); SCAN SMEAR FLAG 1; White Blood Count 11.7 X10*3/uL (4.8-10.8)
[2023-07-23 07:30] LABS: SLIDE REVIEW VERIFIED
[2023-07-23] MEDS: predniSONE 10 MG TABLET 50 MG PO (07:42)
[2023-07-23] MEDS: Acetaminophen 325 MG TABLET 650 MG PO ×2 (07:42→23:15)
[2023-07-23] MEDS: Bictegrav/Emtricit/Tenofov Ala TABLET 1 TAB PO (07:42)
[2023-07-23 07:43] LABS: Anion Gap 13 (12-20); Blood Urea Nitrogen 16 mg/dL (9-16); Carbon Dioxide 20 mmol/L (22-29); Chloride 110 mmol/L (96-108); Creatinine Clr Calc Pharmacy 102.8; Estimated Glomerular Filt Rate > 60; Glucose Random 98 mg/dL (60-115); Magnesium 1.9 mg/dL (1.6-2.6); Potassium 3.9 mmol/L (3.3-5.1); Sodium 139 mmol/L (135-145)
[2023-07-23] MEDS: Atovaquone 750 MG/5 ML ORAL.SUSP PO ×2 (07:43→20:46)
[2023-07-23] MEDS: Lactated Ringers 500 ML IVCONT (07:56)
[2023-07-23] MEDS: vancomycin HCL 1,250 MG in 0.9 % Sodium Chloride 250 ML 166.67 MG IV (09:11)
--- NOTE | 2023-07-23 12:02 | MHC.CM.PN ---
met with pt who reports that she lives with her 2 children ages 6 and 14 14 year old is staying with grandmother frantz hunt [address] [facility] [phone] the 6 year old is staying with the fathers aunt fathers name is jailene Light a filed verbally with [facility] [place] hotline [phone] on this date written report filed today as well pt is unaware of 51 a and repoirts having no ageney involvement
--- NOTE | 2023-07-23 12:28 | HO.PM.IMPN ---
Subjective Subjective Date of Service: 07/23/23 Interval History: Resting comfortably. No O2 requirement. Review of Systems Denies chest pain Denies shortness of breath Denies nausea vomiting diarrhea Denies fever chills Physical Exam Vital Signs: Vital Signs: Last Vital Signs Temp 95.2 F L 07/23/23 11:57 Pulse 64 07/23/23 11:14 Resp 16 07/23/23 11:14 BP 100/59 L 07/23/23 11:14 Pulse Ox 100 07/23/23 11:14 O2 Del Method Room Air 07/23/23 11:14 BMI result Body Mass Index 30.2 Const: Other: Resting comfortably in bed no acute distress Resp: Other: Essentially clear to auscultation with some coarse breath sounds throughout the mid field Cardio: Other: No S4; positive S1-S2; no S3 murmurs rubs or gallops GI: Other: Soft nontender nondistended normoactive bowel sounds Extrem: Other: No edema bilaterally Objective Data Active Medications Acetaminophen (Acetaminophen 325 Mg Tablet) 650 mg PO Q6H PRN PRN Reason: Pain, Mild (Pain Scale 1-3) Last Admin: 07/23/23 07:42 Dose: 650 mg Documented By: BARRINGTON Albuterol Sulfate (Albuterol Sulfate 90 Mcg 8 Gm Inhaler) 2 puff INHALE Q4H PRN PRN Reason: Shortness Of Breath Or Wheezing Atovaquone (Atovaquone 750 Mg/5 Ml Oral.Susp) 750 mg PO BID [facility] Last Admin: 07/23/23 07:43 Dose: 750 mg Documented By: BARRINGTON Bictegravir/Emtricitabine/Tenofovir (Bictegrav/Emtricit/Tenofov Ala Tablet) 1 tab PO DAILY [facility] Last Admin: 07/23/23 07:42 Dose: 1 tab Documented By: BARRINGTON Docusate Sodium (Docusate Sodium 100 Mg Capsule) 100 mg PO DAILY PRN PRN Reason: Constipation Enoxaparin Sodium (Enoxaparin Sodium 40 Mg/0.4 Ml Syringe) 40 mg SUBCUT Q24H [facility] Last Admin: 07/22/23 19:45 Dose: Not Given Documented By: AVELINA Non-Admin Reason: Patient Refused Guaifenesin/Codeine Phosphate (Guaifen/Codeine Sf 200/20/10ml 10 Ml Liquid) 5 ml PO Q6H PRN PRN Reason: cough Vancomycin HCl 1,250 mg/ (Sodium Chloride) 250 mls @ 166.667 mls/hr IV Q12H [facility] Last Infusion: 07/23/23 10:45 Dose: 0 mls/hr Documented By: BARRINGTON Lactated Ringer's (Lr) 500 mls @ 500 mls/hr IVCONT .Q1H PRN PRN Reason: Hypotension Last Infusion: 07/23/23 09:34 Dose: 0 mls/hr Documented By: BARRINGTON Voriconazole 200 mg/ Sodium (Chloride) 100 mls @ 50 mls/hr IV Q12H [facility] Non-Formulary Medication (Budesonide-Formoterol [Symbicort]) 2 puff INHALE Q6H PRN PRN Reason: Shortness Of Breath Or Wheezing Pat Own Med ( Ethambutol 400 Mg Tablet) 1,200 mg PO DAILY [facility] Last Admin: 07/23/23 07:42 Dose: 1,200 mg Documented By: BARRINGTON Ondansetron HCl (Ondansetron Hcl 4 Mg/2 Ml Vial) 4 mg IVPUSH Q8H PRN PRN Reason: Nausea and Vomiting Pharmacy Consult (Consult Rx Vancomycin Dosing) 1 each MISCELLANE DAILY PRN PRN Reason: Consult order Prednisone (Prednisone 10 Mg Tablet) 50 mg PO DAILY [facility] Last Admin: 07/23/23 07:42 Dose: 50 mg Documented By: BARRINGTON Sodium Chloride (0.9 % Sodium Chloride Flush 3 Ml Syringe) 3 ml IVFLUSH QSHIFT [facility] Last Admin: 07/23/23 08:06 Dose: 3 ml Documented By: BARRINGTON Labs 07/23/23 06:42 07/23/23 06:42 Labs: Laboratory Results - last 24 hr 07/22/23 07/22/23 07/22/23 15:43 15:44 15:44 MCV 92.8 MCH 30.6 MCHC 33.0 RDW 18.0 H Plt Count 222 MPV 11.5 Immature Gran % (Auto) 1.0 H Neut % (Auto) 83.0 H Lymph % (Auto) 10.9 L [place] % (Auto) 5.0 Eos % (Auto) 0.0 Baso % (Auto) 0.1 Lymph # (Auto) 2.0 [place] # (Auto) 0.9 Eos # (Auto) 0.0 Baso # (Auto) 0.0 Abs Immat Gran (auto) 0.18 H Absolute Neuts (auto) 15.3 H Absolute Nucleated RBC 0.020 H Nucleated RBC % (auto) 0.1 Smear Tech's Comments PT 15.8 H D INR 1.3 H Anion Gap 15 Estim Creat Clear Calc 117.9 Estimated GFR > 60 Random Glucose 87 Lactic Acid Calcium 9.0 Magnesium 1.4 L* Total Bilirubin 1.0 Direct Bilirubin 0.3 AST 30 ALT 30 Alkaline Phosphatase 100 Total Protein 7.1 Albumin 3.4 L Beta HCG, Quant < 2 Urine Color Urine Appearance Urine pH Ur Specific [place] Urine Protein Urine Glucose (UA) Urine Ketones Urine Blood Urine Nitrite Ur Leukocyte Esterase Urine RBC Urine WBC Ur Squamous Epith Cells Urine Bacteria Hyaline Casts Urine Opiates Screen Urine Fentanyl Screen Ur Barbiturates Screen Ur Phencyclidine Scrn Ur Amphetamines Screen U Benzodiazepines Scrn Urine Cocaine Screen U Marijuana (THC) Screen COVID-19 ([facility]) COVID-19 Clin Com Influenza Type A (PCR) Influenza Type B (PCR) RSV RNA Qual (PCR) SARS-CoV-2 RNA (RT-PCR) 07/22/23 07/22/23 07/22/23 15:44 15:58 16:18 MCV MCH MCHC RDW Plt Count MPV Immature Gran % (Auto) Neut % (Auto) Lymph % (Auto) [place] % (Auto) Eos % (Auto) Baso % (Auto) Lymph # (Auto) [place] # (Auto) Eos # (Auto) Baso # (Auto) Abs Immat Gran (auto) Absolute Neuts (auto) Absolute Nucleated RBC Nucleated RBC % (auto) Smear Tech's Comments PT INR Anion Gap Estim Creat Clear Calc Estimated GFR Random Glucose Lactic Acid 1.1 Calcium Magnesium Total Bilirubin Direct Bilirubin AST ALT Alkaline Phosphatase Total Protein Albumin Beta HCG, Quant Urine Color Urine Appearance Urine pH Ur Specific [place] Urine Protein Urine Glucose (UA) Urine Ketones Urine Blood Urine Nitrite Ur Leukocyte Esterase Urine RBC Urine WBC Ur Squamous Epith Cells Urine Bacteria Hyaline Casts Urine Opiates Screen Urine Fentanyl Screen Ur Barbiturates Screen Ur Phencyclidine Scrn Ur Amphetamines Screen U Benzodiazepines Scrn Urine Cocaine Screen U Marijuana (THC) Screen COVID-19 ([facility]) Negative COVID-19 Clin Com See Note Influenza Type A (PCR) NEGATIVE Influenza Type B (PCR) NEGATIVE RSV RNA Qual (PCR) NEGATIVE SARS-CoV-2 RNA (RT-PCR) NEGATIVE 07/22/23 07/22/23 07/23/23 16:33 16:33 06:42 MCV MCH MCHC RDW Plt Count MPV Immature Gran % (Auto) Neut % (Auto) Lymph % (Auto) [place] % (Auto) Eos % (Auto) Baso % (Auto) Lymph # (Auto) [place] # (Auto) Eos # (Auto) Baso # (Auto) Abs Immat Gran (auto) Absolute Neuts (auto) Absolute Nucleated RBC Nucleated RBC % (auto) Smear Tech's Comments PT INR Anion Gap 13 Estim Creat Clear Calc 102.8 Estimated GFR > 60 Random Glucose 98 Lactic Acid Calcium 8.0 L D Magnesium 1.9 Total Bilirubin Direct Bilirubin AST ALT Alkaline Phosphatase Total Protein Albumin Beta HCG, Quant Urine Color Yellow Urine Appearance Clear Urine pH 6.0 Ur Specific [place] 1.010 Urine Protein 100 (2+) H Urine Glucose (UA) Negative Urine Ketones Negative Urine Blood Negative Urine Nitrite Negative Ur Leukocyte Esterase Negative Urine RBC 0-2 Urine WBC 0-5 Ur Squamous Epith Cells 0-2 Urine Bacteria None Seen Hyaline Casts 0-2 Urine Opiates Screen POSITIVE H Urine Fentanyl Screen Not Detected Ur Barbiturates Screen Not Detected Ur Phencyclidine Scrn Not Detected Ur Amphetamines Screen Not Detected U Benzodiazepines Scrn Not Detected Urine Cocaine Screen Not Detected U Marijuana (THC) Screen POSITIVE H COVID-19 ([facility]) COVID-19 Clin Com Influenza Type A (PCR) Influenza Type B (PCR) RSV RNA Qual (PCR) SARS-CoV-2 RNA (RT-PCR) 07/23/23 06:42 MCV 96.2 MCH 30.4 MCHC 31.7 RDW 18.2 H Plt Count 166 D MPV 11.6 Immature Gran % (Auto) 1.0 H Neut % (Auto) 97.1 H Lymph % (Auto) 0.7 L [place] % (Auto) 0.9 L Eos % (Auto) 0.1 Baso % (Auto) 0.2 Lymph # (Auto) 0.1 L [place] # (Auto) 0.1 Eos # (Auto) 0.0 Baso # (Auto) 0.0 Abs Immat Gran (auto) 0.12 H Absolute Neuts (auto) 11.3 H Absolute Nucleated RBC 0.000 Nucleated RBC % (auto) 0.0 Smear Tech's Comments VERIFIED PT INR Anion Gap Estim Creat Clear Calc Estimated GFR Random Glucose Lactic Acid Calcium Magnesium Total Bilirubin Direct Bilirubin AST ALT Alkaline Phosphatase Total Protein Albumin Beta HCG, Quant Urine Color Urine Appearance Urine pH Ur Specific [place] Urine Protein Urine Glucose (UA) Urine Ketones Urine Blood Urine Nitrite Ur Leukocyte Esterase Urine RBC Urine WBC Ur Squamous Epith Cells Urine Bacteria Hyaline Casts Urine Opiates Screen Urine Fentanyl Screen Ur Barbiturates Screen Ur Phencyclidine Scrn Ur Amphetamines Screen U Benzodiazepines Scrn Urine Cocaine Screen U Marijuana (THC) Screen COVID-19 ([facility]) COVID-19 Clin Com Influenza Type A (PCR) Influenza Type B (PCR) RSV RNA Qual (PCR) SARS-CoV-2 RNA (RT-PCR) Assessment and Plan (1) Pneumonia: Status: Acute (2) Sepsis: Status: Acute (3) AIDS: Status: Acute Plan 32-year-old female with history of HIV/aids, 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 who is a current everyday marijuana and 6-7 cigarette per day smoker admitted for further management of bronchopneumonia with sepsis in AIDS patient. 1.Acute right-sided perihilar pneumonia with severe sepsis in AIDS patient -Voriconazole (2) -IV vancomycin and Zosyn (2) -prednisone 40 mg daily (2) -discuss with thoracic surgery. No cause current [place] [facility] Follow-up with outpatient (recent CT scan demonstrates resolved parahilar mass) 2.Acute hypomagnesemia -repleted -follow renals/divalents 3.MAC infection -diagnosed 08/11, appears resolving on CTA chest -Continue atovaquone, ethambutol.? -will attempt to contact [facility] [place] payables clerk 4.HIV with AIDS -last CD4 count 18 with viral load 50 10/11, with MAC infection -Recheck CD4 count and HIV viral load -continue Biktarvy Lovenox Full code Patient requires ongoing hospitalization for volume support for low blood pressure as well as IV antibiotics Time Spent With Patient Time: Total time managing care of this patient today ____ minutes. Quality Stroke Does the patient have a stroke diagnosis?: No VTE Prior VTE?: Yes VTE Risk Level:: Medical - moderate - high VTE Device Contraindication: Treatment Not Indicated VTE Drug Contraindication: N/A - Med Ordered
[2023-07-23] MEDS: Voriconazole 200 MG in 0.9 % Sodium Chloride 100 ML 50 MG IV (20:46)
[2023-07-23] MEDS: vancomycin HCL 1,250 MG in 0.9 % Sodium Chloride 250 ML 167 MG IV (23:02)
--- NOTE | 2023-07-24 00:17 | P.CNID_ITS ---
History of Present Illness Data of Consult Service Date: 07/23/23 Requesting physician: Parveen Ivory Primary Care Provider: Felicita Melgar MD HPI Reason for consult: fever and tachycardia,AIDS patient She presents to ER with temperature 102.7 as well as tachycardia. She complains of pleuritic chest pain,right. She has DEANGELO and is on Ethambutol and has been on azithromycin. She has been admitted 07/09, 07/14 and 07/22 here for similar symptoms. She has IRIS per [facility] She has appointment pending Carol Ramirez on 07/24 at 1000 am at [facility]. Review of Systems Review of Systems: Yes all other systems are reviewed and are negative Respiratory: Respiratory: Reports pain on inspiration PMFSH Past Medical History Medical History (Updated 07/24/23 @ 00:23 by Gloria Leung MD) AIDS Bronchiectasis Bronchopneumonia CAP (community acquired pneumonia) Coronavirus infection Fever Hidradenitis suppurativa History of pulmonary embolus (PE) HIV (human immunodeficiency virus infection) HIV (human immunodeficiency virus infection) 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 Family History Family history: reviewed and not pertinent Surgical History Surgical History History of appendectomy History of excision of lesion History of tubal ligation Social History Social History Household Members: Children Housing: Apartment Do you presently have visiting nurse or other home services: No Alcohol intake: never Patient Tobacco Use Status: Former Tobacco user Quit Date: 07/16/23 Tobacco use type: Cigarette Cigarettes Per Day: 8 e-Cigarette/Vaping Use: Never Used Second Hand Smoke Exposure: No Substance Use Type: Marijuana service: No Meds Allergies Allergy/AdvReac Type Severity Reaction Status Date / Time sulfamethoxazole Allergy Severe SWELLING Verified 07/18/22 09:02 [From BACTRIM] trimethoprim [From BACTRIM] Allergy Severe SWELLING Verified 07/18/22 09:02 Sulfa (Sulfonamide Allergy Unknown Unknown Verified 07/18/22 09:02 Antibiotics) Active Medications: Current Medications Acetaminophen (Acetaminophen 325 Mg Tablet) 650 mg PO Q6H PRN PRN Reason: Pain, Mild (Pain Scale 1-3) Last Admin: 07/23/23 23:15 Dose: 650 mg Albuterol Sulfate (Albuterol Sulfate 90 Mcg 8 Gm Inhaler) 2 puff INHALE Q4H PRN PRN Reason: Shortness Of Breath Or Wheezing Atovaquone (Atovaquone 750 Mg/5 Ml Oral.Susp) 750 mg PO BID [facility] Last Admin: 07/23/23 20:46 Dose: 750 mg Bictegravir/Emtricitabine/Tenofovir (Bictegrav/Emtricit/Tenofov Ala Tablet) 1 tab PO DAILY [facility] Last Admin: 07/23/23 07:42 Dose: 1 tab Docusate Sodium (Docusate Sodium 100 Mg Capsule) 100 mg PO DAILY PRN PRN Reason: Constipation Enoxaparin Sodium (Enoxaparin Sodium 40 Mg/0.4 Ml Syringe) 40 mg SUBCUT Q24H [facility] Last Admin: 07/23/23 20:46 Dose: Not Given Guaifenesin/Codeine Phosphate (Guaifen/Codeine Sf 200/20/10ml 10 Ml Liquid) 5 ml PO Q6H PRN PRN Reason: cough Vancomycin HCl 1,250 mg/ (Sodium Chloride) 250 mls @ 166.667 mls/hr IV Q12H [facility] Last Admin: 07/23/23 23:02 Dose: 167 mls/hr Lactated Ringer's (Lr) 500 mls @ 500 mls/hr IVCONT .Q1H PRN PRN Reason: Hypotension Last Infusion: 07/23/23 09:34 Dose: Infused Lidocaine/Diphenhydr/Alum/Mg/Simeth (Mag&Al/Sim/Diphenhyd/Lidocaine 10 Ml Oral.Susp) 10 ml PO Q4H PRN; Protocol PRN Reason: Mouth Sore Pain Non-Formulary Medication (Budesonide-Formoterol [Symbicort]) 2 puff INHALE Q6H PRN PRN Reason: Shortness Of Breath Or Wheezing Pat Own Med ( Ethambutol 400 Mg Tablet) 1,200 mg PO DAILY [facility] Last Admin: 07/23/23 07:42 Dose: 1,200 mg Ondansetron HCl (Ondansetron Hcl 4 Mg/2 Ml Vial) 4 mg IVPUSH Q8H PRN PRN Reason: Nausea and Vomiting Pharmacy Consult (Consult Rx Vancomycin Dosing) 1 each MISCELLANE DAILY PRN PRN Reason: Consult order Prednisone (Prednisone 10 Mg Tablet) 50 mg PO DAILY [facility] Last Admin: 07/23/23 07:42 Dose: 50 mg Sodium Chloride (0.9 % Sodium Chloride Flush 3 Ml Syringe) 3 ml IVFLUSH QSHIFT [facility] Last Admin: 07/23/23 16:44 Dose: 3 ml Home Medications Medication Instructions Recorded Confirmed Last Taken Type albuterol sulfate 90 mcg/actuation 2 puff inhalation Q4H PRN 07/18/22 07/22/23 07/22/23 History aerosol inhaler (ProAir HFA) Shortness Of Breath Or Wheezing bictegravir 50 mg-emtricitabine 1 tab PO DAILY 07/18/22 07/22/23 07/22/23 History 200 mg-tenofovir alafenam 25 mg tablet (Biktarvy) atovaquone 750 mg/5 mL oral 750 mg PO BID 07/09/23 07/22/23 07/22/23 History suspension budesonide-formoterol HFA 160 2 puff inhalation Q6H PRN 07/09/23 07/22/23 07/22/23 History mcg-4.5 mcg/actuation aerosol Shortness Of Breath Or Wheezing inhaler (Symbicort) ethambutol 400 mg tablet 1,200 mg PO DAILY 07/09/23 07/22/23 07/22/23 History Physical Exam Vital Signs: Vital Signs: Last Vital Signs Temp 97.5 F 07/23/23 23:16 Pulse 74 07/23/23 23:16 Resp 18 07/23/23 23:16 BP 95/53 L 07/23/23 23:16 Pulse Ox 99 07/23/23 23:16 O2 Del Method Room Air 07/23/23 23:16 BMI result Body Mass Index 30.2 Const: General: cooperative HEENT: Head: Yes normal to inspection Face and sinus: Yes normal facial exam Mouth: Normal oral and palatal mucosa present Teeth and gingiva: dentition normal Eyes: General: appearance normal, both eyes and all related structures Pupils: Equal, round and reactive pupils present Resp: Effort & Inspection: normal respiratory effort Cardio: Rate: regular rate Rhythm: regular rhythm GI: Palpation (GI): Soft to palpation and nontender : General: Yes no CVA tenderness Back/Spine/Pelvis: Back: no CVA tenderness Skin: General skin exam: no rashes or lesions noted Neuro: General: moves all extremities Cranial nerves: Yes Equal, round and reactive pupils present Extrem: General: Yes normal to inspection Psych: Appearance: grossly normal Results Labs 07/23/23 06:42 07/23/23 06:42 Labs: Short CBC 07/23/23 Range/Units 06:42 WBC 11.7 H (4.8-10.8) X10*3/uL Hgb 8.8 L (12.0-16.0) g/dl Hct 27.8 L (37.0-47.0) % Plt Count 166 D (160-400) X10*3/uL BMP 07/23/23 06:42 Sodium 139 Potassium 3.9 Chloride 110 H Carbon Dioxide 20 L BUN 16 Creatinine 0.87 Calcium 8.0 L D Microbiology Microbiology Results: Microbiology 07/22/23 16:18 Blood - Venous Blood Culture - Preliminary No growth after 24 hours. 07/22/23 15:43 Blood - Venous Blood Culture - Preliminary No growth after 24 hours. Assessment and Plan (1) AIDS: Status: Acute (2) Fever: Status: Acute Fever and tachycardia with some hypotension is likely due to either infection or immune reconstitution inflammatory syndrome due to DEANGELO treatment and recovery mimicking sepsis, likely the latter at this point. She has improved lung appearance on CXR and is on room air. Plan Stop Voriconazole as bronchoscopy unrevealing for fungal growth although there was some yeast seen as part of routine culture on bronch dont think significant. Also do not think patient has any signs of endocarditis at this time,Cefepime stopped and please stop Vancomycin if blood culture negative tomorrow. It is imperative that she go to her outpatient appt at [facility] [place] Ramirez on 07/24 at 1000 so should be discharged by then. Continue Biktarvy and atovaquone and home DEANGELO regimen including ethambutol and probable azithromycin and steroids. I discussed in detail with her need to keep care coordinated and see her usual providers at [facility] and go to their ER if ill. Time Spent With Patient Time: Total time managing care of this patient today ____ minutes.
[2023-07-24 03:54] VITALS: BP 98/56; PULSE 72; RESP 18; TEMP 36.3; O2SAT 99
[2023-07-24] MEDS: traMADoL HCL 50 MG TABLET PO (06:51)
[2023-07-24 07:45] VITALS: BP 106/61; PULSE 84; RESP 17; TEMP 36.2; O2SAT 99
[2023-07-24 08:33] LABS: Creatinine Clr Calc Pharmacy 111.8; Estimated Glomerular Filt Rate > 60
[2023-07-24 08:36] LABS: Vancomycin Random 23.3 mcg/mL (15-20)
--- NOTE | 2023-07-24 08:55 | HE.PHANOTE ---
RE: vanco Level on 07/24 came back high at 23.3 mg/L, held AM dose. Due to patient's BMI switched to obese model in insight (IBW = 59.3kg); changed dose to 750mg Q12H with predicted AUC of 419 mg/L, trough of 12.3 mg/L. Getting another random level @2000 before PM dose to verify clearance; will continue to monitor renal function and adjust accordingly
[2023-07-24] MEDS: Acetaminophen 325 MG TABLET 650 MG PO ×2 (09:31→15:29)
[2023-07-24] MEDS: predniSONE 10 MG TABLET 50 MG PO (09:31)
[2023-07-24] MEDS: Bictegrav/Emtricit/Tenofov Ala TABLET 1 TAB PO (09:32)
[2023-07-24] MEDS: Atovaquone 750 MG/5 ML ORAL.SUSP PO (09:32)
[2023-07-24] MEDS: Mag&Al/Sim/Diphenhyd/Lidocaine 10 ML ORAL.SUSP PO ×2 (09:32→14:13)
[2023-07-24] MEDS: guaiFEN/Codeine SF 200/20/10ML 10 ML LIQUID 5 ML PO (09:54)
[2023-07-24 12:00] VITALS: BP 103/67; PULSE 75; RESP 17; TEMP 36.2; O2SAT 99
--- NOTE | 2023-07-24 14:46 | PM.DS ---
DS: Providers Provider Date of Service: 07/24/23 Date of admission: 07/22/23 19:12 Date of discharge: 07/24/23 Primary care physician: Felicita Melgar MD Consults: 07/22/23 19:22 Consult to Infectious Diseases Routine Consulting Provider: [facility] Infectious Disease Reason for consultation: aids, lung mass, sepsis Consult to Thoracic Surgery Routine Consulting Provider: [facility] Thoracic Surgeons Reason for consultation: sepsis, aids, needs thoracic biopsy per ID. 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 who is a current everyday marijuana and 6-7 cigarette per day smoker presented to the ED earlier today for evaluation of upper respiratory symptoms ongoing intermittently xnearly 2 weeks.? She states she has had fevers up to 105 as well as occasionally productive cough, shortness of breath and wheezing, and left-sided pleuritic chest pain.? She denies any known sick contacts.? Denies any sore throat, sinus pressure, rhinorrhea, abdominal pain, nausea, vomiting, diarrhea, lightheadedness, headache, or retrosternal chest pressure.? She is not vaccinated against COVID-19.? She is currently being treated for MAC initially diagnosed in 07/2022 and reports compliance with atovaquone, azithromycin, and ethambutol. She follows with Dr. Melgar in ID at [facility]. She has been admitted twice within the last 2 weeks for, the first on 07/10 thought to be exacerbation of bronchiectasis by ID and discharged home given significant improvement in respiratory status. She returned and was admitted 07/14 due to return of fevers and similar symptoms to today.? She was treated with broad-spectrum antibiotics and given concern for aspergillosis she was also treated with IV voriconazole and continued on atovaquone for PCP and ethambutol for MAC infection. She underwent bronchoscopy by pulmonology on 07/19 and transbronchial biopsies negative for GMS and AFB microorganisms.? There is high suspicion for medication noncompliance given undetectable CD4 count and viral load over 500,000. Patient again does report compliance. ER course On arrival today, patient febrile to 103.3, tachycardic to 127, tachypneic to 28.? No hypoxia.? Temperature improved to 100.8 with Tylenol.? She did develop hypotension 283/51 which responded favorably to IV fluids with blood pressure on admission of 99/60.? There is a leukocytosis of 18.5.? Renal function normal, electrolyte levels normal except for sodium of 131.? Magnesium 1.4.? Troponin 4.7.? Urine test pending.? Urinalysis unremarkable.? Urine tox screen positive for opiates and marijuana.? Negative for COVID-19, influenza, COVID-19.? Chest x-ray shows increased right infrahilar opacity.? Chest CTA pending.? In the ED, given 1 g IV magnesium, IV cefepime, IV Zosyn. Hospital Course Admitted to groundwater monitoring technician consistently demonstrated normal sinus rhythm. Patient did not require oxygen during this admission. CT chest demonstrates marked resolution of right perihilar infiltrate as seen previously. Seen by Infectious Disease who recommended to stop fluconazole vancomycin and cefepime given all negative cultures. Patient will continue on all her HIV meds including prednisone daily. She is strongly encouraged to keep her appointment with [facility] Infectious Disease tomorrow at 10:00. Further plans can be dictated by Infectious Disease practitioner. Her urine toxicology screen did show positive for opiates and marijuana; she was given Tylenol with codeine elix as well as oxycodone during her hospitalization. At this point she is medically acceptable for discharge to follow-up with [facility] as scheduled. Patient is agreeable at this time and all questions were answered Time Spent with Patient Time attestation: Total time managing care of this patient today ____ minutes. Discharge coordination time: Greater than 30 minutes Quality: Safe Use of Opioids Does Pt have an Active Cancer Diagnosis on the Problem List?: No Quality: Stroke Does the patient have a stroke diagnosis?: No Physical Exam Vital Signs: Vital Signs: Last Vital Signs Temp 97.1 F 07/24/23 12:00 Pulse 75 07/24/23 12:00 Resp 17 07/24/23 12:00 BP 103/67 07/24/23 12:00 Pulse Ox 99 07/24/23 12:00 O2 Del Method Room Air 07/24/23 12:00 BMI result Body Mass Index 30.2 Const: Other: Resting comfortably in bed no acute distress Resp: Other: Essentially clear to auscultation with some coarse breath sounds throughout the mid field Cardio: Other: No S4; positive S1-S2; no S3 murmurs rubs or gallops GI: Other: Soft nontender nondistended normoactive bowel sounds Extrem: Other: No edema bilaterally DS: Data Data Completed and Pending Labs on day of discharge: Laboratory Results - last 24 hr 07/24/23 07/24/23 07:54 07:54 Creatinine 0.80 Estim Creat Clear Calc 111.8 Estimated GFR > 60 Random Vancomycin 23.3 H Preliminary micro results at discharge 07/22/23 16:18 Blood Culture - Preliminary Blood - Venous No growth after 24 hours. 07/22/23 15:43 Blood Culture - Preliminary Blood - Venous No growth after 24 hours. Discharge Plan Discharge Anticipated Discharge Date/Time: 07/24/23 14:43 Patient Disposition: Home, Self-Care Discharge Diagnosis: Sepsis secondary to pneumonia Referrals: Felicita Melgar MD [Primary Care Provider] - 1 Week Discharge Medications: Continued albuterol sulfate [ProAir HFA] 90 mcg/actuation HFA aerosol inhaler 2 puff inhalation Q4H PRN (Reason: Shortness Of Breath Or Wheezing) Biktarvy 50-200-25 mg tablet 1 tab PO DAILY ethambutol 400 mg tablet 1,200 mg PO DAILY atovaquone 750 mg/5 mL suspension 750 mg PO BID budesonide-formoterol [Symbicort] 160-4.5 mcg/actuation HFA aerosol inhaler 2 puff inhalation Q6H PRN (Reason: Shortness Of Breath Or Wheezing) codeine-guaifenesin [Guaifenesin AC] 10-100 mg/5 mL liquid 5 ml PO Q6H PRN (Reason: cough) Qty: 237 0RF Discharge Orders: Discharge Order (Routine); Ordered 07/24/23 Ordered By: Parveen Ivory Diet: Advance to usual diet Activity on Discharge: As tolerated Stand Alone Forms: Patient Portal Discharge page Care Plan Goals: All antibiotics have been stopped. Continue all your other meds as before hospitalization Health Concerns: It is extremely important that you follow-up with [facility] Infectious Disease tomorrow with scheduled appointment Plan of Treatment: Further plans as per ER visit tomorrow Assessment: See discharge summary
--- NOTE | 2023-07-24 15:08 | MHC.CM.PN ---
PT WILL DC HOME TODAY WITH NO SERVICES PT TO ARRANGE TRANSPORTATION
[2023-07-24 15:21] VITALS: BP 123/81; PULSE 73; RESP 20; TEMP 36.2; O2SAT 98
--- NOTE | 2023-07-24 15:45 | PC.NURSE ---
Pt's own meds given to pt prior to d/c and oxy script given to pt
== END 2023-07-24 17:11 | disposition home or self-care (01) | DRG 890 ==
LOC: HO.ED 18:49 → HO.EDOVER 19:32 → HO.IMC 21:55
PROVIDERS: Nurse Practitioner Family; Student in an Organized Health Care Education/Training Program; Admitting Provider Physician Assistant; Emergency Provider Student in an Organized Health Care Education/Training Program; PCP Internal Medicine; Visit Provider Hospitalist
DX: A41.9 Sepsis, unspecified organism (principal); B20 Human immunodeficiency virus [HIV] disease; A31.0 Pulmonary mycobacterial infection; R65.20 Severe sepsis without septic shock; J47.0 Bronchiectasis with acute lower respiratory infection; B37.0 Candidal stomatitis; J18.9 Pneumonia, unspecified organism; F17.210 Nicotine dependence, cigarettes, uncomplicated; Z71.6 Tobacco abuse counseling; E83.42 Hypomagnesemia; Z20.822 Contact with and (suspected) exposure to COVID-19; Z87.891 Personal history of nicotine dependence; Z79.899 Other long term (current) drug therapy
CPT/HCPCS: 0241U; 36415; 71046; 71275; 80048; 80076; 80202; 80307; 81001; 82565; 83605; 83735; 84484; 84702; 85025; 85610; 87040; 87635; 93005; 99285; J0692; J1650; J1885; J2543; J3370; J3371; J3465; J3475; Q9967

== ENCOUNTER → 2023-07-22 19:12 | Outpatient (BNV) | payer OTHER, SELFPAY | PROVIDERS: Admitting Provider Physician Assistant; Emergency Provider Student in an Organized Health Care Education/Training Program; PCP Internal Medicine; Visit Provider Internal Medicine | DX: B20 Human immunodeficiency virus [HIV] disease (principal); R50.9 Fever, unspecified | CPT/HCPCS: 99222 ==

== ENCOUNTER → 2023-07-22 19:12 | Outpatient (BNV) | payer OTHER, SELFPAY | PROVIDERS: Admitting Provider Physician Assistant; Emergency Provider Student in an Organized Health Care Education/Training Program; PCP Internal Medicine; Visit Provider Physician Assistant | DX: B20 Human immunodeficiency virus [HIV] disease (principal); R50.9 Fever, unspecified | CPT/HCPCS: 99223; 99233; 99239 ==

== ENCOUNTER 2024-02-05 09:20 | Emergency (ER) | payer OTHER, SELFPAY ==
--- NOTE | 2024-02-05 | ECG_ITS ---
Test Reason : CP Blood Pressure : / mmHG Vent. Rate : 103 BPM Atrial Rate : 103 BPM P-R Int : 140 ms QRS Dur : 072 ms QT Int : 332 ms P-R-T Axes : 004 061 -04 degrees QTc Int : 434 ms Sinus tachycardia Nonspecific T wave abnormality Borderline ECG When compared with ECG of 22-JUL-2023 15:31, No significant change was found Referred By: Generic ED Physician Electronically Signed By:NABILA NAIK
--- NOTE | ~2024-02-05 | XR_ITS ---
EXAMINATION: XR CHEST CLINICAL INFORMATION: Productive cough COMPARISON: Chest radiograph and CT chest 07/22/2023 TECHNIQUE: Frontal view of the chest was obtained. FINDINGS: No significant abnormality is noted involving the heart, lungs, mediastinum, bony thorax or soft tissues. Previously seen right lung atelectasis/infiltrate has completely cleared since the prior study. The mediastinum adenopathy seen on the prior CT scan is beyond the scope of the chest radiograph. XR/XR chest 1V IMPRESSION: No acute intrathoracic disease.
[2024-02-05 09:33] VITALS: BP 113/82; PULSE 119; RESP 20; TEMP 37.2; O2SAT 96; BMI 32.6
--- NOTE | 2024-02-05 10:31 | ED_ITS ---
HPI - General Adult General Chief complaint: Upper Respiratory Symptoms Stated complaint: fever chest pain Time Seen by Provider: 02/05/24 09:46 Source: patient Mode of arrival: ambulatory Limitations: no limitations History of Present Illness HPI narrative: This is a 33-year-old female history of pulmonary nodules, hidradenitis suppurativa, HIV AIDS presenting to the emergency department with 3 days of fever, fatigue, malaise, productive cough of yellow sputum, substernal chest discomfort without radiation, trouble with deep breathing (makes her cough) .\ Patient reports she has ?lung problems? and she is worried that there could be something wrong with her lungs. No sick contacts. Patient denies nausea, vomiting, abdominal pain, diarrhea, abdominal pain, headache, vision changes, dizziness, weakness. Eating and drinking well. Related Data Home Medications Medication Instructions Recorded Confirmed albuterol sulfate 90 mcg/actuation 2 puff inhalation Q4H PRN 07/18/22 07/22/23 aerosol inhaler (ProAir HFA) Shortness Of Breath Or Wheezing bictegravir 50 mg-emtricitabine 1 tab PO DAILY 07/18/22 07/22/23 200 mg-tenofovir alafenam 25 mg tablet (Biktarvy) atovaquone 750 mg/5 mL oral 750 mg PO BID 07/09/23 07/22/23 suspension budesonide-formoterol HFA 160 2 puff inhalation Q6H PRN 07/09/23 07/22/23 mcg-4.5 mcg/actuation aerosol Shortness Of Breath Or Wheezing inhaler (Symbicort) ethambutol 400 mg tablet 1,200 mg PO DAILY 07/09/23 07/22/23 Previous Rx's Medication Instructions Recorded codeine 10 mg-guaifenesin 100 mg/5 5 ml PO Q6H PRN cough #237 mL 07/20/23 mL oral liquid (Guaifenesin AC) Magic Mouthwash 10 ml PO Q4H #240 mL 07/24/23 Diphen/Lido/Antacid 1:1:1 240 mL suspension acetaminophen 500 mg tablet 1,000 mg (2 x 500 mg) PO TID PRN 07/24/23 (Tylenol Extra Strength) fever or pain #120 tabs oxycodone 5 mg tablet 5 mg PO Q6H PRN pain (scale score 07/24/23 4-6) #20 tabs albuterol sulfate 90 mcg/actuation 2 inh inhalation Q4-6H PRN 02/05/24 breath activated powder inhaler shortness of breath or wheezing #1 ea doxycycline hyclate 100 mg capsule 100 mg PO BID 10 days #20 caps 02/05/24 prednisone 20 mg tablet 40 mg (2 x 20 mg) PO DAILY 5 days 02/05/24 #10 tabs Allergies Allergy/AdvReac Type Severity Reaction Status Date / Time sulfamethoxazole Allergy Severe SWELLING Verified 07/18/22 09:02 [From BACTRIM] trimethoprim [From BACTRIM] Allergy Severe SWELLING Verified 07/18/22 09:02 Sulfa (Sulfonamide Allergy Unknown Unknown Verified 07/18/22 09:02 Antibiotics) Review of Systems 2 Review of Systems: Yes all other systems are reviewed and are negative PMFSH Past Medical History Attestation statement: The following information was validated with the patient. 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 AIDS Coronavirus infection HIV (human immunodeficiency virus infection) Bronchopneumonia Bronchiectasis CAP (community acquired pneumonia) HIV (human immunodeficiency virus infection) Surgical History History of tubal ligation History of excision of lesion History of appendectomy Social History Social History Household Members: Children Housing: Apartment Do you presently have visiting nurse or other home services: No Alcohol intake: never Patient Tobacco Use Status: Former Tobacco user Quit Date: 07/16/23 Tobacco use type: Cigarette Cigarettes Per Day: 8 e-Cigarette/Vaping Use: Never Used Second Hand Smoke Exposure: No Substance Use Type: Marijuana Advance Directives: No Advance Directives Information Provided: No service: No Physical Exam ED Vital Signs: Vital Signs - 24 hr 02/05/24 09:33 Temperature 99.0 F Pulse Rate 119 H Respiratory Rate 20 Blood Pressure 113/82 Pulse Oximetry 96 Oxygen Delivery Method Room Air BMI result Body Mass Index 32.6 vss Appearance: Alert.? Oriented X3.? No acute distress.? Head: Normocephalic, atraumatic, no step-offs or deformities Eyes: Pupils equal, round and reactive to light.? ENT: Pharynx normal.? Neck: Normal inspection.? Neck supple.? CVS: Normal heart rate and rhythm.? Pulses normal.? Respiratory: No respiratory distress.? Breath sounds normal.? Abdomen: Soft and nontender.? Skin: Skin warm and dry.? Normal skin color.? Normal skin turgor.? Extremities: No lower extremity edema.? No calf ttp. 5/5 strength to bilateral upper and lower extremities Neuro: Oriented X 3.? No motor deficit.? No sensory deficit. CN 2-12 intact Course Reevaluation(s) Reevaluation #1: CBC w/ leukopenia chemistry pending. CXR pending. Viral test pending. Time: 10:59 Reevaluation #2: Chemistry with potassium of 5.4, low, ordered. Sodium 133, patient tolerating p.o. fluids, p.o. hydration encouraged. Troponin negative, nonischemic EKG. Flu/COVID/RSV negative. At this time chest x-ray pending. Time: 11:36 Reevaluation #3: Although chest x-ray is still pending, this is a normal x-ray will discharge patient home, ideally would treat patient with Bactrim however she has an allergy to Bactrim will do doxycycline for 10 days for community-acquired pneumonia/bronchitis. Educated patient on diagnosis and treatment plan, answered all question, patient verbalizes understanding. At this time patient will be discharged home, advised to return with new or worsening symptoms. Educated on worrisome signs and symptoms and when to return. At this time I feel comfortable discharge home. Time: 11:36 Medical Decision Making Medical Decision Making MDM Narrative: 33-year-old female presents with cough, subjective fevers and chills, substernal chest pressure x3 days Physical exam benign. History and physical exam concerning for viral illness versus pneumonia versus PJP. Unlikely PE, ACS, acute respiratory distress, dissection. Plan at this time will obtain labs, imaging. Differential Diagnosis Differential Diagnoses: The differential diagnosis associated with the presentation includes History and physical exam concerning for viral illness versus pneumonia versus PJP. Unlikely PE, ACS, acute respiratory distress, dissection. Admission/Observation Consideration of admission/observation: Escalation of care including admission/observation considered Unlikely Lab Data MDM Lab Attestation statement: I reviewed the patient's lab results. 02/05/24 10:34 02/05/24 10:34 Labs: Lab Results 02/05/24 Range/Units 10:34 WBC 1.9 L (4.8-10.8) X10*3/uL RBC 5.37 D (4.20-5.50) X10*6/uL Hgb 13.7 D (12.0-16.0) g/dl Hct 41.9 D (37.0-47.0) % MCV 78.0 L (80.0-98.0) fL MCH 25.5 L (27.0-33.0) pg MCHC 32.7 (31.0-35.0) g/dl RDW 20.0 H (11.0-16.0) % Plt Count 194 (160-400) X10*3/uL MPV 10.6 (9.4-12.3) fL Immature Gran % (Auto) 0.0 (0.0-0.4) % Neut % (Auto) 55.7 (45-73) % Lymph % (Auto) 38.5 (20-40) % [place] % (Auto) 5.3 (2-11) % Eos % (Auto) 0.0 (0-4) % Baso % (Auto) 0.5 (0-2) % Lymph # (Auto) 0.7 L (1.2-4.9) X10*3/uL [place] # (Auto) 0.1 (0.1-1.2) X10*3/uL Eos # (Auto) 0.0 (0.0-0.4) X10*3/uL Baso # (Auto) 0.0 (0.0-0.2) X10*3/uL Abs Immat Gran (auto) 0.00 (0.00-0.03) X10*3/uL Absolute Neuts (auto) 1.0 L (2.0-8.3) x10*3/uL Absolute Nucleated RBC 0.000 (0.0-0.012) X10*3/uL Nucleated RBC % (auto) 0.0 (0.0-0.2) /100WBC Smear Tech's Comments VERIFIED Sodium 133 L (135-145) mmol/L Potassium 5.4 H (3.3-5.1) mmol/L Chloride 107 (96-108) mmol/L Carbon Dioxide 13 L (22-29) mmol/L Anion Gap 18 (12-20) BUN 13 (9-16) mg/dL Creatinine 0.77 (0.5-1.4) mg/dL Estim Creat Clear Calc 115.4 Estimated GFR > 60 Random Glucose 99 (60-115) mg/dL Calcium 8.0 L (8.4-10.2) mg/dL Total Bilirubin 0.2 (0.0-1.0) mg/dL AST 71 H (5-31) U/L ALT 29 (0-31) U/L Alkaline Phosphatase 107 (39-117) U/L Troponin I High Sens 3.3 (<3.5-17.0) ng/L Total Protein 8.2 H (6.5-8.0) g/dL Albumin 3.7 (3.5-5.0) g/dL Influenza Type A (PCR) NEGATIVE (Negative) Influenza Type B (PCR) NEGATIVE (Negative) RSV RNA Qual (PCR) NEGATIVE (Negative) SARS-CoV-2 RNA (RT-PCR) NEGATIVE (Negative) Independent Interpretation I performed an independent interpretation of an: EKG (Ventricular rate of 103, [place] normal, QRS normal, QT/QTC normal. No ST elevations or inversions concerning for acute ischemia) and Plain X-Ray Radiology Impression Discussion of test interpretation with radiology: I have reviewed the radiologist's reading. External Record Review External record reviewed: Inpatient record, Office record, Outpatient record, Prior outpatient labs, Prior outpatient radiology, Primary care record and Outside ED record Chronic Conditions Patient?s care impacted by: Other (HIV/AIDS, obesity, pulmonary nodules, hx of PE ) Critical Care Time Critical Care Time Critical Care Time: No Discharge Plan Discharge Clinical Impression: Bronchitis Patient Disposition: Home, Self-Care Instructions: Acute Bronchitis (ED) Additional Instructions: Take your medications as prescribed. If you were prescribed antibiotics today, it is important that you take your medication to their entirety, do not skip any doses, do not finish them early. Follow-up with your primary care provider this week. Return to the emergency department with new or worsening symptoms. Such as fevers, chills, chest pain, shortness of breath, nausea, vomiting, dizziness, headache, vision changes, lethargy In case of emergency call 911 Please follow-up with your primary care provider Prescriptions: New doxycycline hyclate 100 mg capsule 100 mg PO BID 10 Days Qty: 20 0RF prednisone 20 mg tablet 40 mg PO DAILY 5 Days Qty: 10 0RF albuterol sulfate 90 mcg/actuation aerosol powdr breath activated 2 inh inhalation Q4-6H PRN (Reason: shortness of breath or wheezing) Qty: 1 0RF No Action albuterol sulfate [ProAir HFA] 90 mcg/actuation HFA aerosol inhaler 2 puff inhalation Q4H PRN (Reason: Shortness Of Breath Or Wheezing) Biktarvy 50-200-25 mg tablet 1 tab PO DAILY ethambutol 400 mg tablet 1,200 mg PO DAILY atovaquone 750 mg/5 mL suspension 750 mg PO BID budesonide-formoterol [Symbicort] 160-4.5 mcg/actuation HFA aerosol inhaler 2 puff inhalation Q6H PRN (Reason: Shortness Of Breath Or Wheezing) Magic Mouthwash Diphen/Lido/Antacid 1:1:1 240 mL suspension 10 ml PO Q4H Qty: 240 1RF Rx Instructions: Lidocaine Viscous 2 % 80mL; diphenhydramine 12.5 mg/5 mL 80mL; aluminum-mag hydrox-simeth [id number]/5mL 80mL acetaminophen [Tylenol Extra Strength] 500 mg tablet 1,000 mg PO TID PRN (Reason: fever or pain) Qty: 120 0RF oxycodone 5 mg tablet 5 mg PO Q6H PRN (Reason: pain (scale score 4-6)) Qty: 20 0RF Rx Instructions: Partial Fill upon patient request. codeine-guaifenesin [Guaifenesin AC] 10-100 mg/5 mL liquid 5 ml PO Q6H PRN (Reason: cough) Qty: 237 0RF Referrals: Carol Ramirez MD [Primary Care Provider] - 2 days Stand Alone Forms: Work/School Release
[2024-02-05 10:46] LABS: Basophils Percent Auto 0.5 % (0-2); Hematocrit 41.9 % (37.0-47.0); Hemoglobin 13.7 g/dl (12.0-16.0); Lymphocytes Absolute Auto 0.7 X10*3/uL (1.2-4.9); Lymphocytes Percent Auto 38.5 % (20-40); MANUAL DIFF FLAG SCAN; Mean Corpuscular HGB Conc 32.7 g/dl (31.0-35.0); Mean Corpuscular Hemoglobin 25.5 pg (27.0-33.0); Mean Platelet Volume 10.6 fL (9.4-12.3); Monocytes Absolute Auto 0.1 X10*3/uL (0.1-1.2); Monocytes Percent Auto 5.3 % (2-11); Neutrophils Percent Auto 55.7 % (45-73); Platelet Count 194 X10*3/uL (160-400); Red Blood Count 5.37 X10*6/uL (4.20-5.50); SCAN SMEAR FLAG 1
[2024-02-05 10:50] LABS: White Blood Count 1.9 X10*3/uL (4.8-10.8)
[2024-02-05 11:07] LABS: Troponin-I High Sensitivity 3.3 ng/L (<3.5-17.0)
[2024-02-05 11:13] LABS: SLIDE REVIEW VERIFIED
[2024-02-05 11:18] LABS: Alanine Aminotransferase 29 U/L (0-31); Albumin Level 3.7 g/dL (3.5-5.0); Alkaline Phosphatase 107 U/L (39-117); Anion Gap 18 (12-20); Aspartate Amino Transferase 71 U/L (5-31); Bilirubin Total 0.2 mg/dL (0.0-1.0); Blood Urea Nitrogen 13 mg/dL (9-16); Carbon Dioxide 13 mmol/L (22-29); Chloride 107 mmol/L (96-108); Creatinine Clr Calc Pharmacy 115.4; Estimated Glomerular Filt Rate > 60; Glucose Random 99 mg/dL (60-115); Potassium 5.4 mmol/L (3.3-5.1); Sodium 133 mmol/L (135-145); Total Protein 8.2 g/dL (6.5-8.0)
[2024-02-05 11:26] LABS: Influenza A PCR NEGATIVE (Negative); Influenza B PCR NEGATIVE (Negative); Resp Syncy Virus RNA Qual PCR NEGATIVE (Negative); SARS COV2 PCR INHOUSE NEGATIVE (Negative)
[2024-02-05] MEDS: Sodium Zirconium Cyclosilicate 5 GM POWD.PACK PO (12:16)
[2024-02-05 12:17] VITALS: O2SAT 97
[2024-02-05 12:20] VITALS: BP 127/72; PULSE 90; RESP 18; TEMP 36.8; O2SAT 96
== END 2024-02-05 12:21 | disposition home or self-care (01) ==
PROVIDERS: Emergency Provider Emergency Medicine; PCP Internal Medicine
DX: J40 Bronchitis, not specified as acute or chronic (principal); Z21 Asymptomatic human immunodeficiency virus [HIV] infection status; Z86.711 Personal history of pulmonary embolism; Z11.52 Encounter for screening for COVID-19; Z20.828 Contact with and (suspected) exposure to other viral communicable diseases
CPT/HCPCS: 0241U; 71045; 80053; 84484; 85025; 93005; 99284; 99285

== ENCOUNTER → 2024-02-05 10:03 | Outpatient (BNV) | payer OTHER, SELFPAY | PROVIDERS: Emergency Provider Emergency Medicine; PCP Internal Medicine; Visit Provider Internal Medicine | DX: R07.9 Chest pain, unspecified (principal) | CPT/HCPCS: 93010 ==

== ENCOUNTER 2024-06-27 11:23 | Inpatient (IN) | payer OTHER, SELFPAY ==
[2024-06-27] VITALS (11 sets, daily range): BP systolic 80–114; BP diastolic 40–67; PULSE 67–124; RESP 12–22; TEMP 36.4–38.6; O2SAT 95–99; BMI 27.7
--- NOTE | ~2024-06-27 | CT_ITS ---
EXAMINATION: CT ANGIOGRAM OF THE CHEST WITH AND WITHOUT CONTRAST (CT PULMONARY ANGIOGRAM FOR PE) CLINICAL INFORMATION: Reason for Exam SOB, tachycardia COMPARISON: CT PE study 07/22/2023, 07/09/2023, 09/30/2022 and 07/18/2022 TECHNIQUE: Prior to contrast administration, noncontrast localization images were obtained. Subsequently, multidetector volumetric imaging was performed from the thoracic inlet to below the diaphragms following the administration of 65 mL Omnipaque 350 intravenous contrast. No contrast reaction reported Sagittal, coronal, and MIP oblique sagittal reformatted images were obtained on the CT workstation, uploaded to PACS, and reviewed. This CT examination was performed using dose optimization techniques as appropriate, variously including the following: *Automated exposure control *Adjustment of mA and/or kV according to patient size (this includes techniques or standardized protocols for targeted exams where dose is matched to indication/reason for exam; i.e. extremities or head) *Use of iterative reconstruction technique Total exam dose-length product 244 mGy-cm FINDINGS: QUALITY OF STUDY/CONTRAST BOLUS: Satisfactory. PULMONARY ARTERIES: No pulmonary emboli. THORACIC AORTA: No aneurysm. LUNG: Mild emphysematous changes are present throughout the lungs. Bibasilar atelectasis is seen with an area of possible consolidation/collapse in the posterior right lower lobe. Bronchial thickening is present along with traction bronchiectasis. At the time of the 07/18/2022 study more dilated bronchi were seen in location which are now occluded. There is increasing atelectasis seen in the lingula. There is a flat stellate area on top of the minor fissure in the right upper lobe measuring 2 mm in thickness and 15 x 10 mm in the axial dimension (6:214). This is essentially unchanged when compared to the older study dating back to 07/18/2022. The previously seen 5 mm subpleural nodule in the right upper lobe is no longer seen but a linear area of atelectasis/scar is present in its place. PLEURA: No pleural effusion or pneumothorax. MEDIASTINUM: Normal heart size. No pericardial effusion. No evidence of septal bowing or right heart strain. Again seen are mediastinal lymph nodes with the largest in the subcarinal region measuring 1.6 cm in short axis dimension. CORONARY ARTERY CALCIFICATION: None visualized on this study. CHEST WALL/AXILLA: No axillary or internal mammary lymphadenopathy. OSSEOUS STRUCTURES: No acute or suspicious osseous abnormality. UPPER ABDOMEN: Unremarkable. No reflux of contrast into the hepatic veins to suggest elevated right heart pressures. CT/CT angio chest PE protocol IMPRESSION: 1. No evidence of pulmonary emboli. 2. Bibasilar atelectasis with possible new/worsening consolidation/collapse in the posterior right lower lobe. 3. Stable stellate area on top of the minor fissure in the right upper lobe, likely mechelle tissue at the intersection of multiple pleural surfaces. 4. VTE: negative.
--- NOTE | ~2024-06-27 | XR_ITS ---
EXAMINATION: XR CHEST CLINICAL INFORMATION: Follow-up pneumonia COMPARISON: Chest radiograph from, CT angiography chest from 06/27/2024 TECHNIQUE: Frontal view of the chest was obtained. FINDINGS: Redemonstrated radiopacities involving the bilateral lung bases, left greater than right potentially representing resolving infectious/inflammatory etiology intermixed with atelectasis. Slight bronchial thickening. No pneumothorax. Trachea is midline. Cardiac mediastinal silhouette is stable. No large pleural effusion. Osseous structures are intact. Soft tissues are unremarkable. XR/XR chest 1V IMPRESSION: 1. Redemonstrated radiopacities involving the bilateral lung bases, left greater than right potentially representing resolving infectious/inflammatory etiology intermixed with atelectasis. 2. Slight bronchial thickening.
--- NOTE | 2024-06-27 11:43 | ED.GENADULT ---
HPI - General Adult General Chief complaint: Dyspnea Stated complaint: SOB Time Seen by Provider: 06/27/24 11:42 Source: patient and EMS Mode of arrival: EMS Limitations: no limitations History of Present Illness ED Provider: Nikki Garcia PA-C HPI narrative: Patient is a 33 year old assigned female at with a history of HIV/AIDS, hidradentitis suppurativa, and pulmonary nodules presenting to the emergency department today with SOB and cough. Patient states that last year she was seen here and admitted for similar symptoms. Patient states that since then she has been on Azithromycin daily. Patient states that over the last 2 days she has developing worsening SOB, cough, and fevers. Patient denies any dizziness, lightheadedness, abdominal pain, nausea, vomiting, chills, blurry vision, double vision, loss of vision, chest pain, back pain, night sweats, pain with urination, increased urinary frequency, increased urinary urgency, blood in her urine or stool, syncope or a near syncopal episode, recent trauma or falls, bowel incontinence, bladder incontinence, or any other complaints at this time. Onset (ago): day(s) (2) Relieving factors: none Exacerbating factors: none Associated symptoms: cough and shortness of breath Treatments prior to arrival: other (Daily Azithromycin) Related Data Home Medications ?Medication ?Instructions ?Recorded ?Confirmed albuterol sulfate 90 mcg/actuation 2 puff inhalation Q4H PRN 07/18/22 07/22/23 aerosol inhaler (ProAir HFA) Shortness Of Breath Or Wheezing bictegravir 50 mg-emtricitabine 1 tab PO DAILY 07/18/22 07/22/23 200 mg-tenofovir alafenam 25 mg tablet (Biktarvy) atovaquone 750 mg/5 mL oral 750 mg PO BID 07/09/23 07/22/23 suspension budesonide-formoterol HFA 160 2 puff inhalation Q6H PRN 07/09/23 07/22/23 mcg-4.5 mcg/actuation aerosol Shortness Of Breath Or Wheezing inhaler (Symbicort) ethambutol 400 mg tablet 1,200 mg PO DAILY 07/09/23 07/22/23 Previous Rx's ?Medication ?Instructions ?Recorded codeine 10 mg-guaifenesin 100 mg/5 5 ml PO Q6H PRN cough #237 mL 07/20/23 mL oral liquid (Guaifenesin AC) Magic Mouthwash 10 ml PO Q4H #240 mL 07/24/23 Diphen/Lido/Antacid 1:1:1 240 mL suspension acetaminophen 500 mg tablet 1,000 mg (2 x 500 mg) PO TID PRN 07/24/23 (Tylenol Extra Strength) fever or pain #120 tabs oxycodone 5 mg tablet 5 mg PO Q6H PRN pain (scale score 07/24/23 4-6) #20 tabs albuterol sulfate 90 mcg/actuation 2 inh inhalation Q4-6H PRN 02/05/24 breath activated powder inhaler shortness of breath or wheezing #1 ea doxycycline hyclate 100 mg capsule 100 mg PO BID 10 days #20 caps 02/05/24 prednisone 20 mg tablet 40 mg (2 x 20 mg) PO DAILY 5 days 02/05/24 #10 tabs Allergies Allergy/AdvReac Type Severity Reaction Status Date / Time sulfamethoxazole Allergy Severe SWELLING Verified 06/27/24 11:38 [From BACTRIM] trimethoprim [From BACTRIM] Allergy Severe SWELLING Verified 06/27/24 11:38 Sulfa (Sulfonamide Allergy Unknown Unknown Verified 06/27/24 11:38 Antibiotics) Review of Systems Constitutional: Constitutional: Reports no additional constitutional complaints, Denies chills, Reports fever(s) and Denies night sweats Eyes: Eyes: Reports no additional eye complaints, Denies blurry vision, Denies change in vision, Denies diplopia, Denies eye discharge, Denies loss of vision and Denies eye pain ENT: Denies dizziness Cardiovascular: Cardiovascular: Reports no additional cardiovascular complaints, Denies chest pain, Denies lightheadedness, Denies Loss of Consciousness and Reports dyspnea Respiratory: Respiratory: Reports no additional respiratory complaints, Reports cough and Reports dyspnea Gastrointestinal: Gastrointestinal: Reports no additional gastrointestinal complaints, Denies abdominal pain, Denies melena, Denies hematochezia, Denies change in bowel habits and Denies change in stool character Genitourinary: Genitourinary: Denies hematuria, Denies urinary frequency, Denies dysuria, Denies urinary incontinence, Denies urinary hesitancy and Denies urinary urgency Musculoskeletal: Musculoskeletal: Reports no additional musculoskeletal complaints, Denies numbness and Denies tingling Neurologic: Denies dizziness, Denies loss of vision, Denies numbness and Denies tingling Psychiatric: Psychiatric: Reports no additional psychiatric complaints Endocrine: Endocrine: Reports no additional endocrine complaints Hematologic/Lymphatic: Hematologic/Lymphatic: Reports no additional hematologic/lymphatic complaints Allergic/Immunologic: Allergic/Immunologic: Reports no additional allergic/immunologic complaints PMFSH Past Medical History Attestation statement: The following information was validated with the patient. 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 AIDS Coronavirus infection HIV (human immunodeficiency virus infection) Bronchopneumonia Bronchiectasis CAP (community acquired pneumonia) HIV (human immunodeficiency virus infection) Surgical History History of tubal ligation History of excision of lesion History of appendectomy Social History Social History Household Members: Children Housing: Apartment Do you presently have visiting nurse or other home services: No Alcohol intake: never Patient Tobacco Use Status: Former Tobacco user Tobacco use type: Cigarette Cigarettes Per Day: 8 e-Cigarette/Vaping Use: Never Used Second Hand Smoke Exposure: No Substance Use Type: Marijuana Advance Directives: No Advance Directives Information Provided: Yes service: No Physical Exam ED Vital Signs: Vital Signs - 24 hr 06/27/24 11:36 06/27/24 12:40 06/27/24 14:00 Temperature 101.5 F H 99.6 F Pulse Rate 124 H 100 95 Respiratory Rate 22 H 14 20 Blood Pressure 114/65 80/40 L Pulse Oximetry 95 98 Oxygen Delivery Method Room Air Room Air 06/27/24 14:43 06/27/24 15:57 06/27/24 16:00 Temperature 98.2 F Pulse Rate 95 92 Respiratory Rate 12 20 20 Blood Pressure 96/49 L 101/58 L Pulse Oximetry 96 97 Oxygen Delivery Method Room Air Room Air BMI result Body Mass Index 27.7 Const General: cooperative, no acute distress, alert and awake Nutritional Appearance: well nourished Orientation/consciousness: patient oriented x3 Limitations: no limitations HENMT Head: Yes normal to inspection and Yes atraumatic Ears: hearing grossly normal bilaterally and external ears normal General nose exam: Normal external nose present, no nasal discharge noted and no epistaxis Face and sinus: Yes normal facial exam, No abrasion and No laceration Mouth: Normal oral and palatal mucosa present, no drooling and no muffled voice Eyes General: appearance normal, both eyes and all related structures Periorbital: periorbital findings normal Eyelids: Yes eyelids normal Conjunctivae: conjunctivae normal Pupils: Equal, round and reactive pupils present EOM: EOMs intact bilaterally Neck Neck: Yes normal visual inspection, Yes full ROM and Yes no lymphadenopathy Chest Chest palpation & inspection: normal inspection of the chest Resp Effort & Inspection: normal respiratory effort and able to speak in complete sentences Cardio Rate: tachycardic Rhythm: regular rhythm GI Inspection: Yes normal to inspection Neuro General: patient oriented x3 and moves all extremities Cranial nerves: Yes Equal, round and reactive pupils present Cognition (Neuro): normal cognition Extrem General: Yes normal to inspection, Yes full ROM and Yes capillary refill normal Psych Appearance: grossly normal Mental Status: mental status grossly normal Affect: normal affect Attitude: cooperative Thought process: Normal thought process present Thought content: Normal thought content present Insight: Good insight present (Psych) Course Reevaluation(s) Reevaluation #1: Patient received in sign out from HILARIA Jordan pending results of CTA chest. CT negative for PE but notable for bibasilar atelectasis and worsening RLL consolidation. Admission to medicine accepted by Dr. Mitchell. Time: 17:30 Medications Administered Discontinued Medications Generic Name Dose Route Start Last Admin Trade Name Osvaldo PRN Reason Stop Dose Admin Albuterol/Ipratropium 3 ml 06/27/24 12:30 06/27/24 12:38 Albuterol/Iprat 2.5/0.5mg 3 Ml Ampul.Neb INHALE 06/27/24 12:31 3 ml ONCE ONE Administration Hydromorphone HCl 1 mg 06/27/24 14:07 06/27/24 15:57 Hydromorphone Hcl 1 Mg/Ml Syringe IVPUSH 06/27/24 14:08 1 mg ONCE ONE Administration Protocol Cefepime HCl 1 gm/ Sodium 50 mls @ 100 mls/hr 06/27/24 11:47 06/27/24 13:01 Chloride IV 06/27/24 12:16 Infused ONCE ONE Infusion Vancomycin HCl 1,500 mg/ 500 mls @ 333.333 mls/hr 06/27/24 12:00 06/27/24 15:57 Sodium Chloride IV 06/27/24 13:29 Infused ONCE ONE Infusion Magnesium Sulfate/Dextrose 1 gm in 100 mls @ 100 mls/hr 06/27/24 14:08 06/27/24 14:49 Magnesium Sulfate/D5w IV 06/27/24 15:07 100 mls/hr ONCE ONE Administration Sodium Chloride 2,265 mls @ 2,265 mls/hr 06/27/24 14:21 06/27/24 17:12 Ns 30 ml/kg infuse over 1 hr (2265 ml) 06/27/24 15:20 Infused IV Infusion .Q1H STA Iohexol 100 ml 06/27/24 14:38 06/27/24 14:38 Iohexol 350 Mg/Ml 100 Ml Infus..Btl IV 06/27/24 14:39 65 ml ONCE ONE Administration Ketorolac Tromethamine 15 mg 06/27/24 11:44 06/27/24 12:29 Ketorolac Tromethamine 15 Mg/Ml Vial IVPUSH 06/27/24 11:45 15 mg ONCE ONE Administration Methylprednisolone Sodium Succinate 60 mg 06/27/24 12:36 06/27/24 13:51 Methylprednisolone Sod Succ 125 Mg/2 Ml Vial IVPUSH 06/27/24 12:37 60 mg ONCE ONE Administration Ondansetron HCl 4 mg 06/27/24 14:07 06/27/24 14:24 Ondansetron Hcl 4 Mg/2 Ml Vial IVPUSH 06/27/24 14:08 4 mg ONCE ONE Administration Potassium Chloride 20 meq 06/27/24 14:08 06/27/24 14:49 Potassium Chloride Er 20 Meq Tab.Er.Prt PO 06/27/24 14:09 20 meq ONCE ONE Administration Medical Decision Making Medical Decision Making MDM Narrative: Patient is a 33 year old assigned female at with a history of HIV/AIDS, hidradentitis suppurativa, and pulmonary nodules presenting to the emergency department today with shortness of breath, fever, and feeling generally unwell. Patient's physical exam showed a tachycardic and febrile individual. Patient's blood work showed a decreased potassium of 2.9 but was otherwise unremarkable. Patient's EKG was unremarkable. Patient's CTA chest is pending at this time. I explained my physical exam findings as well as all test results to the patient. I answered all questions asked by the patient. Concerned for sepsis (@1200). Patient was given IV vancomycin and cefepime. Patient signed out to evening OTTO pending CTA result. Differential Diagnosis Differential Diagnoses: The differential diagnosis associated with the presentation includes Sepsis PNA PE Admission/Observation Consideration of admission/observation: Escalation of care including admission/observation considered Patient's disposition will be determined after CTA results. Lab Data [facility] Lab Attestation statement: I reviewed the patient's lab results. My interpretation of these results are in the [facility] Rationale portion of this note. 06/27/24 12:17 06/27/24 13:22 Labs: Lab Results 06/27/24 06/27/24 06/27/24 Range/Units 12:17 12:40 12:46 WBC 10.4 (4.8-10.8) X10*3/uL RBC 3.73 L D (4.20-5.50) X10*6/uL Hgb 10.9 L D (12.0-16.0) g/dl Hct 32.7 L D (37.0-47.0) % MCV 87.7 (80.0-98.0) fL MCH 29.2 (27.0-33.0) pg MCHC 33.3 (31.0-35.0) g/dl RDW 20.7 H (11.0-16.0) % Plt Count 106 L D (160-400) X10*3/uL MPV 10.6 (9.4-12.3) fL Immature Gran % (Auto) 0.6 H (0.0-0.4) % Neut % (Auto) 88.9 H (45-73) % Lymph % (Auto) 6.6 L (20-40) % [place] % (Auto) 3.9 (2-11) % Eos % (Auto) 0.0 (0-4) % Baso % (Auto) 0.0 (0-2) % Lymph # (Auto) 0.7 L (1.2-4.9) X10*3/uL Independence # (Auto) 0.4 (0.1-1.2) X10*3/uL Eos # (Auto) 0.0 (0.0-0.4) X10*3/uL Baso # (Auto) 0.0 (0.0-0.2) X10*3/uL Abs Immat Gran (auto) 0.06 H (0.00-0.03) X10*3/uL Absolute Neuts (auto) 9.2 H (2.0-8.3) x10*3/uL Absolute Nucleated RBC 0.000 (0.0-0.012) X10*3/uL Nucleated RBC % (auto) 0.0 (0.0-0.2) /100WBC Smear Tech's Comments VERIFIED PT 13.2 (11.1-13.3) SEC INR 1.1 (0.9-1.1) APTT 31.2 (26.0-36.8) SEC Sodium (135-145) mmol/L Potassium (3.3-5.1) mmol/L Chloride (96-108) mmol/L Carbon Dioxide (22-29) mmol/L Anion Gap (12-20) BUN (9-16) mg/dL Creatinine (0.5-1.4) mg/dL Estim Creat Clear Calc Estimated GFR Random Glucose (60-115) mg/dL Lactic Acid 0.7 (0.5-2.0) mmol/L Calcium (8.4-10.2) mg/dL Magnesium (1.6-2.6) mg/dL Total Bilirubin (0.0-1.0) mg/dL AST (5-31) U/L ALT (0-31) U/L Alkaline Phosphatase (39-117) U/L Troponin I High Sens 3.4 (<3.5-17.0) ng/L Total Protein (6.5-8.0) g/dL Albumin (3.5-5.0) g/dL Respiratory Panel Marcum See Note Adenovirus (Rapid PCR) Not Detected (Not Detect.) B.pert (TEM-PCR) Not Detected (Not Detect.) B.parapertussis DNA PCR Not Detected (Not Detect.) C. pneumoniae DNA (PCR) Not Detected (Not Detect.) Coronavirus OC43 (PCR) Not Detected (Not Detect.) Coronavirus HKU1 (PCR) Not Detected (Not Detect.) Coronavirus 229E (PCR) Not Detected (Not Detect.) Coronavirus NL63 (PCR) Not Detected (Not Detect.) Human Metapneumovir PCR Not Detected (Not Detect.) Influenza A (RT-PCR) Not Detected (Not Detect.) Influenza Type A (PCR) NEGATIVE (Negative) Influenza B (RT-PCR) Not Detected (Not Detect.) Influenza Type B (PCR) NEGATIVE (Negative) M. pneumoniae (PCR) Not Detected (Not Detect.) Parainfluenza 1 (PCR) Not Detected (Not Detect.) Parainfluenza 2 (PCR) Not Detected (Not Detect.) Parainfluenza 3 (PCR) Not Detected (Not Detect.) Parainfluenza 4 (PCR) Not Detected (Not Detect.) RSV (PCR) Not Detected (Not Detect.) RSV RNA Qual (PCR) NEGATIVE (Negative) Entero/Rhino (PCR) Not Detected (Not Detect.) SARS-CoV-2 RNA (RT-PCR) NEGATIVE Not Detected (Negative) 06/27/24 Range/Units 13:22 WBC (4.8-10.8) X10*3/uL RBC (4.20-5.50) X10*6/uL Hgb (12.0-16.0) g/dl Hct (37.0-47.0) % MCV (80.0-98.0) fL MCH (27.0-33.0) pg MCHC (31.0-35.0) g/dl RDW (11.0-16.0) % Plt Count (160-400) X10*3/uL MPV (9.4-12.3) fL Immature Gran % (Auto) (0.0-0.4) % Neut % (Auto) (45-73) % Lymph % (Auto) (20-40) % Independence % (Auto) (2-11) % Eos % (Auto) (0-4) % Baso % (Auto) (0-2) % Lymph # (Auto) (1.2-4.9) X10*3/uL Independence # (Auto) (0.1-1.2) X10*3/uL Eos # (Auto) (0.0-0.4) X10*3/uL Baso # (Auto) (0.0-0.2) X10*3/uL Abs Immat Gran (auto) (0.00-0.03) X10*3/uL Absolute Neuts (auto) (2.0-8.3) x10*3/uL Absolute Nucleated RBC (0.0-0.012) X10*3/uL Nucleated RBC % (auto) (0.0-0.2) /100WBC Smear Tech's Comments PT (11.1-13.3) SEC INR (0.9-1.1) APTT (26.0-36.8) SEC Sodium 136 (135-145) mmol/L Potassium 2.9 L* D (3.3-5.1) mmol/L Chloride 108 (96-108) mmol/L Carbon Dioxide 18 L (22-29) mmol/L Anion Gap 13 (12-20) BUN 10 (9-16) mg/dL Creatinine 0.89 (0.5-1.4) mg/dL Estim Creat Clear Calc 92.2 Estimated GFR > 60 Random Glucose 100 (60-115) mg/dL Lactic Acid (0.5-2.0) mmol/L Calcium 8.2 L (8.4-10.2) mg/dL Magnesium 1.5 L (1.6-2.6) mg/dL Total Bilirubin 0.5 (0.0-1.0) mg/dL AST 17 (5-31) U/L ALT 11 (0-31) U/L Alkaline Phosphatase 92 (39-117) U/L Troponin I High Sens (<3.5-17.0) ng/L Total Protein 7.2 (6.5-8.0) g/dL Albumin 3.5 (3.5-5.0) g/dL Respiratory Panel Marcum Adenovirus (Rapid PCR) (Not Detect.) B.pert (TEM-PCR) (Not Detect.) B.parapertussis DNA PCR (Not Detect.) C. pneumoniae DNA (PCR) (Not Detect.) Coronavirus OC43 (PCR) (Not Detect.) Coronavirus HKU1 (PCR) (Not Detect.) Coronavirus 229E (PCR) (Not Detect.) Coronavirus NL63 (PCR) (Not Detect.) Human Metapneumovir PCR (Not Detect.) Influenza A (RT-PCR) (Not Detect.) Influenza Type A (PCR) (Negative) Influenza B (RT-PCR) (Not Detect.) Influenza Type B (PCR) (Negative) M. pneumoniae (PCR) (Not Detect.) Parainfluenza 1 (PCR) (Not Detect.) Parainfluenza 2 (PCR) (Not Detect.) Parainfluenza 3 (PCR) (Not Detect.) Parainfluenza 4 (PCR) (Not Detect.) RSV (PCR) (Not Detect.) RSV RNA Qual (PCR) (Negative) Entero/Rhino (PCR) (Not Detect.) SARS-CoV-2 RNA (RT-PCR) (Negative) Independent Interpretation I performed an independent interpretation of an: EKG Interpretation: Vent. Rate: 120 BPM Atrial Rate: 120 BPM P-R Int: 152 ms QRS Dur: 078 ms QT Int: 330 ms P-R-T Axes: 037 060 027 degrees QTc Int: 466 ms Sinus tachycardia Otherwise normal ECG When compared with ECG of 05-FEB-2024 10:03, No significant change was found DD/ [id number] Independent Historian Clinical information obtained from an independent historian. History obtained from or confirmed by: EMS (EMS provided additional history and confirmed the history provided by the patient.) Critical Care Time Critical Care Time Critical Care Time: Yes Total Critical Care Time: 42 Attestation: I spent 42 minutes of Critical Care Time with this patient. This does not include time spent on separately reported billable procedures. Discharge Plan Discharge Prescriptions: No Action albuterol sulfate [ProAir HFA] 90 mcg/actuation HFA aerosol inhaler 2 puff inhalation Q4H PRN (Reason: Shortness Of Breath Or Wheezing) Biktarvy 50-200-25 mg tablet 1 tab PO DAILY ethambutol 400 mg tablet 1,200 mg PO DAILY atovaquone 750 mg/5 mL suspension 750 mg PO BID budesonide-formoterol [Symbicort] 160-4.5 mcg/actuation HFA aerosol inhaler 2 puff inhalation Q6H PRN (Reason: Shortness Of Breath Or Wheezing) Magic Mouthwash Diphen/Lido/Antacid 1:1:1 240 mL suspension 10 ml PO Q4H Qty: 240 1RF Rx Instructions: Lidocaine Viscous 2 % 80mL; diphenhydramine 12.5 mg/5 mL 80mL; aluminum-mag hydrox-simeth [id number]-900ua-93hg/5mL 80mL acetaminophen [Tylenol Extra Strength] 500 mg tablet 1,000 mg PO TID PRN (Reason: fever or pain) Qty: 120 0RF oxycodone 5 mg tablet 5 mg PO Q6H PRN (Reason: pain (scale score 4-6)) Qty: 20 0RF Rx Instructions: Partial Fill upon patient request. doxycycline hyclate 100 mg capsule 100 mg PO BID 10 Days Qty: 20 0RF prednisone 20 mg tablet 40 mg PO DAILY 5 Days Qty: 10 0RF albuterol sulfate 90 mcg/actuation aerosol powdr breath activated 2 inh inhalation Q4-6H PRN (Reason: shortness of breath or wheezing) Qty: 1 0RF codeine-guaifenesin [Guaifenesin AC] 10-100 mg/5 mL liquid 5 ml PO Q6H PRN (Reason: cough) Qty: 237 0RF Print Language: Romanian
--- NOTE | 2024-06-27 11:43 | ECG_ITS ---
Test Reason : SOB Blood Pressure : / mmHG Vent. Rate : 120 BPM Atrial Rate : 120 BPM P-R Int : 152 ms QRS Dur : 078 ms QT Int : 330 ms P-R-T Axes : 037 060 027 degrees QTc Int : 466 ms Sinus tachycardia Otherwise normal ECG When compared with ECG of 05-FEB-2024 10:03, No significant change was found Referred By: Nikki Garcia Electronically Signed By:MELISSA HOWE MD
--- OUTSIDE RECORDS SUMMARY | 2024-06-27 11:51 | XMS_ITS | Continuity of Care Document ---
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 Name Role Phone Carol Ramirez MD Primary Care Physician Encounter [facility] Date(s): 08/02/23 - 08/08/[address] [address]- Encounter Diagnosis Legionella infection(Final) - 08/02/23 AIDS(Final) - 08/02/23 Discharge Disposition: A-D/C Home Attending Physician: Santo Ponce MD Admitting Physician: Yakelin Allen MD Referring Physician: Not on Staff, Referring [...] virus vaccine, inactivated 12/24/14 Berto rded Medications acetaminophen 500 mg oral tablet 2 tablet = 1,000 mg, By Mouth, 3 times a day, prn pain and fever, 0 Refills, Maintenance, 07/28/23 9:03:00 EDT, Partial fill upon patient request if the prescription is for a schedule II opioid drug. Start Date: 07/28/23 Status: Ordered Acetaminophen Tablet 650 mg, Tablet, By Mouth, Every 4 hours, PRN for Pain , Mild, Temperature Greater than 100.5, Routine, 08/02/23 1:52:00 EDT Start Date: 08/02/23 Stop Date: 08/09/23 Status: Discontinued atovaquone 750 mg/5 mL oral suspension 10 mL = 1,500 mg, By Mouth, Daily, for 30 days, with meals, # 300 mL, 11 Refills, Acute 07/19/24 15:15:00 EDT, 07/25/23 15:15:00 EDT, Suspension, [facility], Partial fill upon patient request if the prescription is for a schedule II o... Start Date: 07/25/23 Stop Date: 07/19/24 Status: Ordered azithromycin 500 mg oral tablet 1 tablet = 500 mg, By Mouth, Daily, for 30 days, Treatment of MAC. Pls deliver to patient 08/09/2023, # 30 tablet, 2 Refills, Acute 11/06/23 14:13:00 EST, 08/08/23 14:13:00 EDT, Tablet, [facility], Partial fill upon patient request if... Start Date: 08/08/23 Stop Date: 11/06/23 Status: Ordered Biktarvy oral tablet 1 tablet, By Mouth, Daily, # 30 tablet, 11 Refills, Maintenance, 07/25/23 15:15:00 EDT, Tablet, [facility], Partial fill upon patient request if the prescription is for a schedule IIopioid drug., 1 tablet By Mouth Daily,x30 days, 165... Start Date: 07/25/23 Stop Date: 07/19/24 Status: Ordered ethambutol 400 mg oral tablet 3 tablet = 1,200 mg, By Mouth, Daily, for 30 days, Treatment of MAC. Take 3 tablets together (totaldose of 1,200mg) daily. Pls deliver to pt for 08/09/2023, # 90 tablet, 2 Refills, Acute 11/06/23 14:14:00 EST, 08/08/23 14:14:00 EDT, Tablet, [place]... Start Date: 08/08/23 Stop Date: 11/06/23 Status: Ordered oxyCODONE 5 mg oral tablet 5 mg, Tablet, By Mouth, Every 8 hours, PRN for Pain , Severe, Routine, 08/02/23 7:13:00 EDT Start Date: 08/02/23 Stop Date: 08/09/23 Status: Discontinued oxyCODONE 5 mg oral tablet 5 mg, 1, tablet, By Mouth, 3 times a day, PRN, for 7 days, TAYLOR perez checked, appropriate Pls deliver to pt 08/09/2023, # 21 tablet, Refills 0, Tot. Refills 0, Acute 08/15/23 14:18:00 EDT, as needed for pain, 08/08/23 14:18:00 EDT, Route to Pharmacy Elec... Start Date: 08/08/23 Stop Date: 08/15/23 Status: Ordered oxyCODONE 5 mg oral tablet short course #20 dispensed on 07/24/23, Refills 0, Tot. Refills 0, Maintenance, 07/28/23 9:04:00 EDT,Partial fill upon patient request if the prescription is for a schedule II opioid drug. Start Date: 07/28/23 Status: Ordered Ventolin HFA 108 mcg/inh inhalation aerosol with adapter 2 puffs, Inhalation, 4 times a day, PRN Wheezing/Shortness of Breath, # 1 each, 11 Refills, Maintenance, 04/26/23 15:10:00 EDT, Aerosol, [facility], Partial fill upon patient requestif the prescription is for a schedule II opioid rachelle... Start Date: 04/26/23 Status: Ordered Problem List Condition Confirmation Course Effective Dates Status H ealth Status Informant Acquired immune deficiency syndrome (AIDS) with CD4 108 on 09/27/16 Confirmed Active Anal fissure Confirmed Active Axillary hidradenitis suppurativa, chronic and severe. not in groin area. 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 Confirmed Active Uterine scar x1 Confirmed Active Results Orders for Microbiology Reports Name Date AFB Culture w/ AFB Smear, Respiratory Fungal Culture, Respiratory 08/04/23 Lower Resp Tract Culture w/ Gram Smear Blood Culture for AFB (Acid Fast Culture , Blood) 08/01/23 Blood Culture 08/01/23 Blood Culture #2 08/01/23 Microbiology Reports TEST:Lower Respiratory Tract Culture STATUS:Auth (Verified) BODY SITE: SOURCE:BRONCH COLLECTED DATE/TIME:08/04/23 4:34 PM Lower Respiratory Tract Culture SPECIMEN DESCRIPTION : BRONCHIAL ALVEOLAR LAVAGE LUNGR SPECIAL REQUESTS : NONE GRAM STAIN : 1+ TISSUE CELLS NO ORGANISMS SEEN CULTURE : NO GROWTH 2 DAYS REPORT STATUS : FINAL 08/07/2023 TEST:AFB Culture w/AFB Smear, Respiratory STATUS:Unauthenticated BODY SITE: SOURCE:BRONCH COLLECTED DATE/TIME:08/04/23 4:34 PM AFB Culture w/AFB Smear, Respiratory SPECIMEN DESCRIPTION : BRONCHIAL ALVEOLAR LAVAGE LUNGR SPECIAL REQUESTS : NONE DIRECT EXAM : NO ACID FAST BACILLI SEEN ON DIRECT SMEAR, TEST PERFORMED AT [facility] CULTURE : [facility], [place] REPORT STATUS : PRELIMINARY REPORT TEST:Fungal Culture, Respiratory STATUS:Unauthenticated BODY SITE: SOURCE:BRONCH COLLECTED DATE/TIME:08/04/23 4:34 PM Fungal Culture, Respiratory SPECIMEN DESCRIPTION : BRONCHIAL ALVEOLAR LAVAGE LUNGR SPECIAL REQUESTS : NONE DIRECT EXAM : NO FUNGAL ELEMENTS OBSERVED CULTURE : NO FUNGI ISOLATED AFTER 3 DAYS REPORT STATUS : PRELIMINARY REPORT TEST:Blood Culture For AFB STATUS:Unauthenticated BODY SITE: SOURCE:Blood COLLECTED DATE/TIME:08/01/23 11:31 PM Blood Culture For AFB SPECIMEN DESCRIPTION : BLOOD NO SITE SPECIAL REQUESTS : NONE CULTURE : SPECIMEN SENT TO [facility], [place], [place] REPORT STATUS : PRELIMINARY REPORT TEST:Blood Culture STATUS:Auth (Verified) BODY SITE: SOURCE:Blood COLLECTED DATE/TIME:08/01/23 3:37 PM Blood Culture SPECIMEN DESCRIPTION : BLOOD LAC SPECIAL REQUESTS : NONE CULTURE : NO GROWTH 5 DAYS. REPORT STATUS : FINAL 08/06/2023 TEST:Blood Culture, Second Order STATUS:Auth (Verified) BODY SITE: SOURCE:Blood COLLECTED DATE/TIME:08/01/23 3:37 PM Blood Culture, Second Order SPECIMEN DESCRIPTION : BLOOD L ARM SPECIAL REQUESTS : NONE CULTURE : NO GROWTH 5 DAYS. REPORT STATUS : FINAL 08/06/2023 Radiology Reports * Exam Date Time Procedure Performing Provider Status 08/02/23 12:[address] Abd/Pelvis W/ IV Contrast Only [employer], Yasmine A; Auth (Verified) Notes: (CT Abd/Pelvis W/ IV Contrast Only) Reason For Exam: Mass RESULT: CT Abd/Pelvis W/ IV Contrast Only CT Chest W/ Contrast, CT Abd/Pelvis W/ IV Contrast Only INDICATION: PT c o three weeks of fevers, vomiting mucus, chest pain, abd pain and dizziness. pt was admitted about one week ago at [facility]. pt had bronch procedure done, new dx today of Legionella per pcp. pt has AIDS. +fever now, took motrin at 12p According to chart, patient was diagnosed with Legionella and non-COVID coronal virus infections [facility]. Patient has history of mycobacterium avium complex diagnosis in 2021. TECHNIQUE: Helical CT scan of the chest, abdomen, and pelvis with IV contrast, formatted in 3 planes. 100 cc of Omnipaque 300 was administered intravenously. This study was performed without oral contrast. Weight-based protocol was performed using automatic exposure control. CTDIvol Body: 8.70 mGy, DLP Body: 613 mGy*cm. COMPARISON: 10/04/2022. FINDINGS: Private Duty Lpn view findings, lines and tubes: None. Trachea and airways: Patent without evidence of tracheal or endobronchial lesion. Lungs and pleura: Multiple bilateral, mostly right lung solid nodules that are new or have increased in size from prior, largest is a 9 mm lateral right upper lobe nodule (series 205:30). A few of these nodules have adjacent spiculation or hazy opacities. The more inferior lateral nodule measuring 1.0 cm with adjacent spiculation has increased in size from prior (series 205:43). Increased medial right lower lobe bronchiectasis with bronchial wall thickening suggesting bronchitis, and a thick band coursing superiorly to measure the right major fissure that measures up to 1.2 cm in maximal thickness (series 205:56). Background of minimal centrilobular emphysema. No effusion or pneumothorax. Mediastinum and genny: Marked increase in mediastinal and hilar lymphadenopathy, for example subcarinal lymph node measures roughly 4.4 x 2.0 cm (series 201:44), and prevascular lymph node measures 2.3 x 1.6 cm (series 201:26). Previously seen large large paratracheal lymph node is not seen on current study. There are also multiple borderline enlarged supraclavicular lymph nodes. No esophageal abnormality. Partially imaged thyroid is unremarkable. Heart: Heart is normal in size. Trace pericardial fluid without flex effusion. Aorta: No aortic aneurysm. Pulmonary arteries: Normal caliber. No evidence of pulmonary embolism on this study performed without angiographic technique. Chest wall soft tissues: No acute abnormality. Diaphragm: Intact. Liver: Normal in attenuation and morphology. No suspicious lesion. Gallbladder: No CT evidence of gallbladder pathology. Bile ducts: No biliary ductal dilation. Spleen: Upper normal in size. There are several too small to assess low-density foci in the spleen,nonspecific. Pancreas: No suspicious lesion or ductal dilatation. Adrenal glands: No nodule. Kidneys and ureters: No hydronephrosis, stone, or suspicious lesion. Bladder: No wall thickening or surrounding stranding. Reproductive organs: Unremarkable. Stomach, small bowel, and large bowel: Minimal wall thickening of the stomach which may be due to gastritis or underdistention. The remainder of the small bowel and the large bowel are unremarkable. Appendix: Surgically absent. Peritoneum and retroperitoneum: No ascites or pneumoperitoneum. No omental or mesenteric lesions. Lymph nodes: Extensive retroperitoneal and mesenteric lymphadenopathy with adjacent fat stranding, for example an aortocaval lymph node measures 2.2 x 1.8 cm (series 201:112), and multiple mesentericlymph nodes with the largest measuring 2.5 x 2.2 cm in the left mid abdomen (series 201:127). Blood vessels: No vascular calcifications or aneurysm. No evidence of venous thrombosis. Abdominal and pelvic wall soft tissues: No acute abnormality. Bones: No acute abnormality. IMPRESSION: Findings including multiple bilateral new nodules and bronchitis change in the right lower lobe aresuspicious for a pulmonary infectious/inflammatory process. According to the chart, patient has been recently diagnosed with Legionella pneumonia and has history of Mycobacterium avium complex infection. Extensive mediastinal, abdominal, and mesenteric lymphadenopathy. Differential in an HIV patient include Persistent Generalized Lymphadenopathy, mycobacterial infection, and immune reconstitution inflammatory syndrome (IRIS) given patient's recent start of HAART medications, or a combination thereof. Given history of MAC, prolonged low CD4 count combined with patient's complaint of pain and fever, this suggests a combination of MAC and IRIS to be the most likely diagnosis. Minimal wall thickening of the stomach may be due to gastritis or underdistention. I have personally reviewed the images and I agree with this report. WSN: [id number] Ordering Physician: Efrain Urias Dictated By: Shonda Corona MD Dictated Date/Time: 08/02/23 12:58 p Reviewed By: Lorena Granados MD Signed By: Lorena Granados MD Signed Date/Time: 08/02/23 1:03 pm Transcribed By: JIMMY Transcribed Date/Time: 08/02/23 9:03 am * Exam Date Time Procedure Performing Provider Status 08/02/23 12:[address] Chest W/ Contrast Yasmine Gibson (Verified) Notes: (CT Chest W/ Contrast) Reason For Exam: Infection RESULT: CT Chest W/ Contrast CT Chest W/ Contrast, CT Abd/Pelvis W/ IV Contrast Only INDICATION: PT c o three weeks of fevers, vomiting mucus, chest pain, abd pain and dizziness. pt was admitted about one week ago at [facility]. pt had bronch procedure done, new dx today of Legionella per pcp. pt has AIDS. +fever now, took motrin at 12p According to chart, patient was diagnosed with Legionella and non-COVID coronal virus infections atrecent hospitalizations [facility]. Patient has history of mycobacterium avium complex diagnosis in 2021. TECHNIQUE: Helical CT scan of the chest, abdomen, and pelvis with IV contrast, formatted in 3 planes. 100 cc of Omnipaque 300 was administered intravenously. This study was performed without oral contrast. Weight-based protocol was performed using automatic exposure control. CTDIvol Body: 8.70 mGy, DLP Body: 613 mGy*cm. COMPARISON: 10/04/2022. FINDINGS: Private Duty Lpn view findings, lines and tubes: None. Trachea and airways: Patent without evidence of tracheal or endobronchial lesion. Lungs and pleura: Multiple bilateral, mostly right lung solid nodules that are new or have increased in size from prior, largest is a 9 mm lateral right upper lobe nodule (series 205:30). A few of these nodules have adjacent spiculation or hazy opacities. The more inferior lateral nodule measuring 1.0 cm with adjacent spiculation has increased in size from prior (series 205:43). Increased medial right lower lobe bronchiectasis with bronchial wall thickening suggesting bronchitis, and a thick band coursing superiorly to measure the right major fissure that measures up to 1.2 cm in maximal thickness (series 205:56). Background of minimal centrilobular emphysema. No effusion or pneumothorax. Mediastinum and genny: Marked increase in mediastinal and hilar lymphadenopathy, for example subcarinal lymph node measures roughly 4.4 x 2.0 cm (series 201:44), and prevascular lymph node measures 2.3 x 1.6 cm (series 201:26). Previously seen large large paratracheal lymph node is not seen on current study. There are also multiple borderline enlarged supraclavicular lymph nodes. No esophageal abnormality. Partially imaged thyroid is unremarkable. Heart: Heart is normal in size. Trace pericardial fluid without flex effusion. Aorta: No aortic aneurysm. Pulmonary arteries: Normal caliber. No evidence of pulmonary embolism on this study performed without angiographic technique. Chest wall soft tissues: No acute abnormality. Diaphragm: Intact. Liver: Normal in attenuation and morphology. No suspicious lesion. Gallbladder: No CT evidence of gallbladder pathology. Bile ducts: No biliary ductal dilation. Spleen: Upper normal in size. There are several too small to assess low-density foci in the spleen,nonspecific. Pancreas: No suspicious lesion or ductal dilatation. Adrenal glands: No nodule. Kidneys and ureters: No hydronephrosis, stone, or suspicious lesion. Bladder: No wall thickening or surrounding stranding. Reproductive organs: Unremarkable. Stomach, small bowel, and large bowel: Minimal wall thickening of the stomach which may be due to gastritis or underdistention. The remainder of the small bowel and the large bowel are unremarkable. Appendix: Surgically absent. Peritoneum and retroperitoneum: No ascites or pneumoperitoneum. No omental or mesenteric lesions. Lymph nodes: Extensive retroperitoneal and mesenteric lymphadenopathy with adjacent fat stranding, for example an aortocaval lymph node measures 2.2 x 1.8 cm (series 201:112), and multiple mesentericlymph nodes with the largest measuring 2.5 x 2.2 cm in the left mid abdomen (series 201:127). Blood vessels: No vascular calcifications or aneurysm. No evidence of venous thrombosis. Abdominal and pelvic wall soft tissues: No acute abnormality. Bones: No acute abnormality. IMPRESSION: Findings including multiple bilateral new nodules and bronchitis change in the right lower lobe aresuspicious for a pulmonary infectious/inflammatory process. According to the chart, patient has been recently diagnosed with Legionella pneumonia and has history of Mycobacterium avium complex infection. Extensive mediastinal, abdominal, and mesenteric lymphadenopathy. Differential in an HIV patient include Persistent Generalized Lymphadenopathy, mycobacterial infection, and immune reconstitution inflammatory syndrome (IRIS) given patient's recent start of HAART medications, or a combination thereof. Given history of MAC, prolonged low CD4 count combined with patient's complaint of pain and fever, this suggests a combination of MAC and IRIS to be the most likely diagnosis. Minimal wall thickening of the stomach may be due to gastritis or underdistention. I have personally reviewed the images and I agree with this report. WSN: [id number] Ordering Physician: Efrain Urias Dictated By: Shonda Corona MD Dictated Date/Time: 08/02/23 12:58 p Reviewed By: Lorena Granados MD Signed By: Lorena Granados MD Signed Date/Time: 08/02/23 1:03 pm Transcribed By: JIMMY Transcribed Date/Time: 08/02/23 9:03 am Vital Signs Most recent to oldest [Reference Range]: 1 2 3 Height 167 cm (08/08/23 12:32 PM) 167 cm (08/08/23 3:45 AM) 167 cm (08/07/23 11:30 PM) Weight 81 kg (08/04/23 1:36 PM) 81 kg (08/02/23 6:16 PM) 78 kg (08/02/23 8:11 AM) Oxygen Saturation [94-100 %] 99 % (08/08/23 12:32 PM) 99 % (08/08/23 7:00 AM) 96 % (08/08/23 3:45 AM) Pulse Rate [55-90 bpm] 83 bpm (08/08/23 12:32 PM) 97 bpm *H* (08/08/23 7:00 AM) 92 bpm *H* (08/08/23 3:45 AM) Body Mass Index [18.5-24.99 kg/m2] 29.04 kg/m2 *H* (08/04/23 1:36 PM) 29.04 kg/m2 *H* (08/02/23 6:16 PM) 27.97 kg/m2 *H* (08/02/23 8:11 AM) Blood Pressure [90-138/55-84 mm Hg] 122/76mm Hg (08/08/23 12:32 PM) 114/67mm Hg (08/08/23 7:00 AM) 102/76mm Hg (08/08/23 3:45 AM) Respiratory Rate [16-30 br/min] 18 br/min (08/08/23 12:32 PM) 18 br/min (08/08/23 9:21 AM) 18 br/min (08/08/23 9:21 AM) Temperature [96.8-100.4 DegF] 98.2 DegF (08/08/23 12:32 PM) 98.0 DegF (08/08/23 7:00 AM) 98.4 DegF (08/08/23 3:45 AM) Mode of Delivery (Oxygen) Room air (08/08/23 12:32 PM) Room air (08/08/23 7:00 AM) Room air (08/08/23 3:45 AM) Blood pressure sites Arm, right (08/08/23 12:32 PM) Arm, right (08/08/23 7:00 AM) Arm, right (08/08/23 3:45 AM) Temperature Route Oral (08/08/23 12:32 PM) Oral (08/08/23 7:00 AM) Oral (08/08/23 3:45 AM) Dry Weight 81 kg (08/02/23 6:16 PM) 78 kg (08/02/23 8:11 AM) 78 kg (08/02/23 8:04 AM) Weight Obtained Via Patient/family state d (08/01/23 3:07 PM) Dry Weight Obtained Via Patient/family s tated (08/01/23 3:07 PM) Social History Social History Type Response Tobacco Use: 4 or less cigar ettes(less than 1/4 pack)/day in last 30 days. Sex Laboratory * Juventino Ovalle MD, Santo Garcia: REVIEW Event Display: Cytology Reports General Authored Date: [id number] Patient Name: NELIDA HOPKINS Patient : 1990 (Age: 32) Lab Collection Date: 08/04/2023 Accession Date: 08/07/2023 Sign Out Date: 08/08/2023 Tissue Source: 1: LUNG, RIGHT, BRONCHOALVEOLAR LAVAGE: Final Diagnosis: LUNG, RIGHT, BRONCHOALVEOLAR LAVAGE: NEGATIVE FOR MALIGNANT CELLS. Predominantly pigment laden (including hemosiderin laden) histiocytes present. The cell block confirms the above findings. Clinical History: Date of Last Menstrual Period: not available Menstrual History: not available Contraceptive History: not available Ancillary Testing: not available Clinical History (other): Lung nodules, likely infectious Gross Description: Received 30cc of light pink fluid 1 ThinPrep cellular enhancement technique Cell block 08/07/23 Primary Pathologist: Nathen Del Castillo M.D. Phone #: [phone], On-Call Pathologist: [id number] History and physical note * Mera HANNON, Shonda Murphy: PERFORM, MODIFY Event Display: History and Physical Hospital Authored Date: Patient: ??NELIDA HOPKINS ? Age:??32 Years?Sex:??Female?:??1990?? Chief Complaint/Reason for Consultation cough. History of Present Illness 08/02 ?? 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 ??Patient was sent to ER by her PCP/ID. ?? Patient says that she has been sick for few weeks. She has fever, cough which is dry, central sharp chest pain with cough, sob, night sweats, diarrhea, myalgia, abdominal cramp and wt loss. She has been in [facility] multiple times for this. She said they did a biopsy (seems to be bronch) and found something starts with L (legionella?) . She saw her PCP / ID specialist today and she wassent to ER for further eval. As per ID she had ??an undifferentiated pulmonary illness that was presumptively treated as pulmonary MAC w/ superimposed IRIS. Please see her note for details.? In ER she had fever 102, Tachy 120s initially, now HR controlled, BP controlled, in RA. Labs shows wbc 9.8, Hb 7.4 (baseline 8-9), normal creatinine, normal lactate, mostly normal liver enzymes. neg. UA neg for infection. CT chest/abdo done, report pending. EKG sinus with hr 106, qtc 456. ?? She was given levofloxacin and admitted for further eval.? Review of Systems All systems reviewed and negative except as in HPI. Objective Measurements?? Height: 167 cm (08/01/23) Weight: 78 kg (08/01/23) Dry Weight: 78 kg (08/01/23) Body Mass Index:??27.97 kg/m2??High (08/01/23) ? Vital Signs?? Temperature: 99 DegF (08/02/23 04:34:00) Temperature Route: Oral (08/02/23 04:34:00) Pulse Rate: 75 bpm (08/02/23 04:34:00) Respiratory Rate: 23 br/min (08/02/23 04:34:00) Systolic Blood Pressure: 131 mm Hg (08/02/23 04:34:00) Diastolic Blood Pressure:??87 mm Hg??High (08/02/23 04:34:00) Blood pressure sites: Arm, right (08/02/23 04:34:00) Mean Arterial Pressure: 95 mm Hg (08/01/23 22:07:00) Pulse Pressure: 44 mm Hg (08/02/23 04:34:00) Oxygen Saturation: 94 % (08/02/23 04:34:00) Mode of Delivery (Oxygen): Room air (08/02/23 04:34:00) Vital Signs Comment: [id number] (08/01/23 12:33:00) Early Warning Score: 5 (08/02/23 04:35:16) ? Physical Exam Constitutional: ??Alert,??no acute distress, co-operative, lying on the bed, saturating well on room air. ?? Mental state: Oriented x 3. Head: ??Normocephalic, atraumatic. ?? Eye:?No discharge. ENT: No discharge. Neck: ??Supple,??no JVD. Cardiovascular: ??S1, S2. Regular rhythm. No MRG. Respiratory: ??Lungs are clear to auscultation b/l, No RRR. ?? Gastrointestinal: ??Soft, Nontender, Non distended, ??Normal bowel sounds.?? Genitourinary: No costovertebral angle tenderness. Neurological: ??Cranial nerves intact. Motor and sensory intact. Cerebellar function intact. Back: ??Nontender. Musculoskeletal: ??Normal ROM.?? No edema Hematology: No lymphadenopathy Skin: ??Warm, dry. Psychiatric: ??Cooperative.?? Assessment/Plan Diagnoses AIDS ??(B20) Immune reconstitution inflammatory syndrome ??(D89.3) Legionella infection ??(A48.1) Opportunistic infection ??(B99.9) Pneumonia ??(J18.9) ?? 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 Patient was sent to ER by her PCP/ID. ?? AIDS (B20):??. 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 Pneumonia (J18.9):??. Legionella infection (A48.1):??. Opportunistic infection (B99.9):??. [facility], negative pressure room Labs sent as per ID - cbd, immunodef panel, HIV VL, blood c/s x 2, blood c/s for AFBx1 CT chest and CT abdo done, f/up report. Please obtain [employer] imaging form 07/22/23 ID consult requested. In the mean time as advised will start levofloxacin. Send sputum, urine antigens. Cont biktarvy Cont atovaquon for pjp ppx. Not on pred anymore. Pain meds. ? VTE Prophylaxis:??as per guideline ?VTE Prophylaxis Assessment:??Risk Level documented as Low Risk ?? Code Status:??full code ?Order Code Status:??Code Status Ordered ?? Discharge Planning:? Histories Allergies Allergies ?(Active and Proposed Allergies Only) rifabutin? (Severity: Unknown severity, Onset: Unknown) ?Reactions: severe arthralgias dapsone? (Severity: Unknown severity, Onset: Unknown) ?Reactions: 09/2019 developed rash on dapsone/trimethoprim doxycycline? (Severity: Unknown severity, Onset: Unknown) ?Reactions: itchy rash Bactrim? (Severity: Unknown severity, Onset: Unknown) ?Reactions: Dairy food intake ? Past Medical History/Problem List Active Problems??(9) Acquired immune deficiency syndrome (AIDS) with CD4 108 on 09/27/16 Anal fissure Axillary hidradenitis suppurativa, chronic and severe. not in groin area. 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 Past Surgical History delivery: 10/20/08 ? Social History Alcohol Details:??Use: Never. Substance Abuse Details:??Use: Current. ??Type: Marijuana. Tobacco Details:??Use: 4 or less cigarettes(less than 1/4 pack)/day in last 30 days. Details:??Former smoker Electronic Cigarette/Vaping Details:??Electronic Cigarette Use: Never. ? Family History No positive family history reported. ? Medications Home Medications Acetaminophen (acetaminophen 500 mg oral tablet)?2?tab(s)?1,000?Milligram?By Mouth?3 times a day?prn pain and fever Albuterol (Ventolin HFA 108 mcg/inh inhalation aerosol with adapter)?2?puff(s)?Inhalation?4 times a day?as needed?Wheezing/Shortness of Breath Atovaquone (atovaquone 750 mg/5 mL oral suspension)?10?Milliliter?1,500?Milligram?ByMouth?Daily?for 30?Days?with meals bictegravir/emtricitabine/tenofovir (Biktarvy oral tablet)?1?tab(s)?By Mouth?Daily?for 30?Days Oxycodone (oxyCODONE 5 mg oral tablet)?short course #20 dispensed on 07/24/23 ? Inpatient Medications Medications (14) Active SCHEDULED: (5) Atovaquone 150 mg/mL Suspension (Atovaquone Liquid) ??1,500 mg 10 mL, By Mouth, Daily Bictegravir/Emtricitabine/Tenofovir 50 mg-200 mg-25 mg Tablet (Biktarvy Tablet) ??1 tablet, By Mouth, Daily Breo Ellipta 100 mcg / 25 mcg Inhaler (Breo Ellipta 100 mcg-25 mcg Inhaler) ??1 puffs, Inhalation, Daily Levofloxacin 750 mg Tablet (Levofloxacin Tablet) ??750 mg, By Mouth, Every 24 hours NaCl 0.9% Flush 3ml (NaCL 0.9% Flush) ??3 mL, IV Push, Every 8 hours CONTINUOUS: (0) PRN: (9) Acetaminophen 325 mg Tablet (Acetaminophen Tablet) ??650 mg, By Mouth, Every 4 hours Dextromethorphan-Guaifenesin 20 mg-200 mg/10 mL Liqu UD (Robitussin DM Liquid) ??10 mL, By Mouth, Every 4 hours Docusate Sodium 100 mg Capsule (Docusate Sodium Capsule) ??100 mg 1 capsule, By Mouth, 2 times a day Melatonin 3 mg Tablet (Melatonin Tablet) ??3 mg, By Mouth, Daily at bedtime NaCl 0.9% Flush 3ml (NaCL 0.9% Flush) ??3 mL, IV Push, Every 8 hours OxyCODONE 5 mg IR Tablet (oxyCODONE 5 mg oral tablet) ??5 mg, By Mouth, Every 8 hours Polyethylene Glycol 17 Gm Powder (MiraLax Powder) ??17 Gm 1 pack/packet, By Mouth, Daily Senna Tablet ??8.6 mg 1 tablet, By Mouth, 2 times a day Simethicone 80 mg Chewable Tablet (Simethicone Tablet) ??80 mg, Chew, 3 times a day ? Results Recent Labs BLOOD COUNT & DIFF WBC 9.8 k/mm3 ()?? 08/01/2023 15:37 RBC 2.53 m/mm3 (Low)?? 08/01/2023 15:37 Hgb 7.4 Gm/dL (Low)?? 08/01/2023 15:37 Hct 23.1 % (Low)?? 08/01/2023 15:37 MCV 91.3 femtoliters ()?? 08/01/2023 15:37 MCH 29.2 pg ()?? 08/01/2023 15:37 MCHC 32.0 g/dL (Low)?? 08/01/2023 15:37 Platelet Count 207 k/mm3 ()?? 08/01/2023 15:37 RDW-SD 58.1 femtoliters (High)?? 08/01/2023 15:37 MPV 12.8 femtoliters (High)?? 08/01/2023 15:37 Nucleated RBC (Automated) 0.2 #/100 WBC'S ()?? 08/01/2023 15:37 Abs. NRBC 0.0 k/mm3 ()?? 08/01/2023 15:37 Abs. Neut 7.4 k/mm3 (High)?? 08/01/2023 15:37 Abs. Lymph 1.5 k/mm3 ()?? 08/01/2023 15:37 Abs. [place]ole 0.7 k/mm3 ()?? 08/01/2023 15:37 Abs. Eo 0.0 k/mm3 ()?? 08/01/2023 15:37 Abs. Baso 0.0 k/mm3 ()?? 08/01/2023 15:37 Neut % 76.0 % ()?? 08/01/2023 15:37 Lymph % 15.5 % ()?? 08/01/2023 15:37 Toole % 7.1 % ()?? 08/01/2023 15:37 Eos % 0.3 % ()?? 08/01/2023 15:37 Baso % 0.1 % ()?? 08/01/2023 15:37 Imm Gran 1.0 % ()?? 08/01/2023 15:37 Abs. Imm Gran 0.1 k/mm3 ()?? 08/01/2023 15:37 ?? CHEM GENERAL Sodium 132 mmol/L (Low)?? 08/01/2023 15:38 Potassium 3.6 mmol/L ()?? 08/01/2023 15:38 Chloride 99 mmol/L ()?? 08/01/2023 15:38 Bicarbonate Level 20 mmol/L (Low)?? 08/01/2023 15:38 Anion Gap 13 ()?? 08/01/2023 15:38 Glucose Level 97 mg/dL ()?? 08/01/2023 15:38 BUN 6 mg/dL ()?? 08/01/2023 15:38 Creatinine-Blood 0.7 mg/dL ()?? 08/01/2023 15:38 Estimated GFR Creatinine 111 ML/MIN/1.73 M2 ()?? 08/01/2023 15:38 Calcium 8.0 mg/dL (Low)?? 08/01/2023 15:38 Magnesium 1.6 mg/dL ()?? 08/01/2023 15:38 Protein, Total 6.3 Gm/dL ()?? 08/01/2023 15:38 Albumin 3.0 Gm/dL (Low)?? 08/01/2023 15:38 AG Ratio 0.9 ()?? 08/01/2023 15:38 Alkaline Phosphatase 163 units/L (High)?? 08/01/2023 15:38 AST (SGOT) 18 units/L ()?? 08/01/2023 15:38 ALT (SGPT) 13 units/L ()?? 08/01/2023 15:38 Bilirubin, Total 0.8 mg/dL ()?? 08/01/2023 15:38 Lactate 1.5 mmol/L ()?? 08/01/2023 15:38 ?? ENDOCRINE/TUMOR MARKER Blood <1 mIU/mL ()?? 08/01/2023 15:38 ?? UA/URINALYSIS Appear/Color, Urine LIGHT YELLOW ()?? 08/01/2023 17:45 Specific [place], Urine <1.005 ()?? 08/01/2023 17:45 pH, Urine 7.0 ()?? 08/01/2023 17:45 Albumin, Urine NEGATIVE (N)?? 08/01/2023 17:45 Glucose, Urine NEGATIVE (N)?? 08/01/2023 17:45 Ketones, Urine NEGATIVE (N)?? 08/01/2023 17:45 Bilirubin, Urine NEGATIVE (N)?? 08/01/2023 17:45 Hemoglobin, Urine 2+ (Abnormal)?? 08/01/2023 17:45 Nitrite, Urine NEGATIVE (N)?? 08/01/2023 17:45 Leukocyte, Urine NEGATIVE (N)?? 08/01/2023 17:45 Urobilinogen NORMAL mg/dL (N)?? 08/01/2023 17:45 WBC's, Urine <1 /HPF ()?? 08/01/2023 17:45 RBC's, Urine <1 /HPF ()?? 08/01/2023 17:45 Bacteria SLIGHT HPF (Abnormal)?? 08/01/2023 17:45 Squamous Epith 1 /HPF ()?? 08/01/2023 17:45 Mucus SLIGHT /LPF ()?? 08/01/2023 17:45 Hold Urine Culture Testing available 48 hours from time of collection. ()?? 08/01/2023 17:45 ?? URINE OTHER Est Creatinine Clearance 107.95 mL/min ()?? 08/01/2023 16:38 ?? VIROLOGY COVID-19 by RT-PCR NEGATIVE ()?? 08/01/2023 23:42 ? Microbiology ?? COVID-19 (Novel Coronavirus), Rapid PCR?? Completed?? Source: Nasal Body Site: Nose Collected Dt/Tm: 08/01/2023 23:34 Last Updated Dt/Tm: 08/02/2023 01:19 ? EKG study * Event Display: ECG 12-Lead Authored Date: [id number] Please click on pdf link to open report * Event Display: ECG 12-Lead Authored Date: [id number] Ventricular Rate: 106 BPM Atrial Rate: 106 BPM P-R Interval: 158 ms QRS Duration: 72 ms Q-T Interval: 344 ms QTC Calculation(Bazett): 456 ms P [place]: 6 degrees R [place]: 39 degrees T [place]: 41 degrees Sinus tachycardia Otherwise normal ECG When compared with ECG of 12-SEP-2022 10:52, No significant change was found Confirmed by NOEMI HANNON [facility] ([id number]) on 08/02/2023 8:00:19 AM [place]: NOEMI HANNON,[facility] [address] Progress note * Rosario HANNON, [place]: PERFORM Event Display: Progress [facility] Authored Date: [id number] Patient: ??NELIDA HOPKINS ? Age:??32 Years?Sex:??Female?:??1990?? Subjective Seen and examined today Afebrile for > 48 hrs diarrhea resolved Wants to go home ?? Review of Systems Constitutional: No fever or chills. ENT: No sore throat or nasal congestion. Respiratory: No shortness of breath or cough??. Cardiovascular: No chest pain or??palpitation. Gastrointestinal: No nausea, vomiting or diarrhea. Skin: No rash or lesion Neurology: No speech problem no vision problem no focal weakness, no dizziness. Psychiatric: Cooperative, normal mood and affect Objective ?? Physical Exam Awake, alert, oriented Lungs: Clear to auscultation bilateral, no wheezing no rales Heart: Regular rate and rhythm, no murmur, no rub or gallop Abdomen: Soft, nontender, nondistended; Bowel sounds present Extremity: No edema cyanosis clubbing Neurological: No focal deficit Psychiatric: Normal mood and affect Assessment/Plan Assessment:? 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 Sent to the emergencyroom by her PCP for evaluation of fever. Patient was febrile at 102 in the emergency room also tachycardic, she was seen by infectious disease who recommended treatment with Zithromax and also pulmonology evaluation for a bronchoscopy. ? AIDS (B20): . 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 ??Fever at risk for Legionella pneumonia or opportunistic infection ?? S/P bronchoscopy and BAL??on 08/04, no sig finding AFB negative gram stain and CS negative ??ID waiting for??TB clearance on concentrated smear that was sent to reference lab in [place] on admission.?#Right parahilar mass (06/2023; [facility]); diagnostic eval showing only legionella, non-pneumophila and non-COVID coronavirus (NB: incomplete diagnostic eval, no AFB smear/mycobacterial Cx) ??#Persistent fever, cough, chest pain, night sweats ??#Hx of pulmonary mycobacterium avium, diagnosed on the basis of left hilar bx in 07/2022, untreated ??Concern for; opportunistic infection although patient has been on PJP ppx, cryptococcus and/or viral infections including CMV; disseminated MAC with known diagnosis and no treatment. ?IRIS is likely with rapid virologic suppression over the past three weeks of restarting ART. This could unmask of previously subclinical opportunistic infections and/or paradoxically worsen of previously identified OIs i.e. MAC. ?Mycobacterium TB is also a possibility. Likely to need repeat bronchoscopy for definitive diagnosis. ??While it legionella-non pneumophila was isolated from 07/19 BAL at [facility], continue with azithromycin 600 mg daily and ethambutol 15 mg/kg daily to treat for possible active MAC infection. This will also cover for legionella infection. ??Respiratory viral panel negative serum cryptococcus Ag, is negative, blood cultures negative ? S/P bronchoscopy and BAL on 08/04, no sig finding ?? AFB negative ?? gram stain and CS negative ?? Plan: Will continue Biktarvy and atovaquone prophylaxis Will??continue Azithromycin and Ethambutol ?Chronic diarrhea, patient reports she takes as needed Imodium ?Diarrhea improved ?VTE Prophylaxis: as per guideline ? Low risk out of bed and ambulate ?Pneumo boot Code Status: full code ? Discharge Planning:?? Once cleared by ID pending??concentrated smear that was sent to reference [facility] on admission.? * La Hodges RN: PERFORM, MODIFY, MODIFY, MODIFY, SIGN, VERIFY Event Display: Progress Note Hospital Authored Date: Patient: NELIDA HOPKINS Age: 32 years Sex: Female : 1990 Associated Diagnoses: None Author: La Hodges RN Findings Problem Related to Alteration in Respiratory Function (new) : Alteration in Respiratory Function/new 08/08/2023 1:00 EDT Alteration in Resp Status Related to Pneumonia, Other: TB r/o Goals & Outcomes, Respiratory Pt will maintain/resume baseline physical assessment, Pt will notdevelop complications r/t mechanical ventilation, Pt will maintain adequate nutritional intake, Pt will maintain/resume normal fluid/electrolyte balance, Pt will not develop complications r/t immobility, Pt will demonstrate proper technique w/self care procedures Interventions, Respiratory Assess for and report S&S of respiratory distress, Position for comfort & optimal oxygenation, Monitor sputum color & consistency. Report changes to Goals/Interventions, Respiratory Yes Respiratory, Problem Start 08/04/2023 22:23 Reviewed Plan with, Respiratory Patient Patient Progression, Respiratory Patient progressing according to plan . Nursing Data Cardiac Data. : Cardiac Data. 08/07/2023 21:00 EDT Cardiovascular Symptoms None Nail Bed Color, Fingers [place] Skin Temperature Upper Extremities Warm Skin Temperature Lower Extremities Warm Heart Sounds S1, S2 Heart Rhythm Regular Capillary Refill < 3 seconds Cardiovascular WNL except . Respiratory/Pulmonary Data. 08/07/2023 21:00 EDT Respiratory Symptoms None Respiratory effort Unlabored Respiratory Assessment Comment pt denies sob, respirations even and unlabored on room air. Cough No cough Respiratory pattern Regular All Lobes Breath Sounds Clear Respiratory Treatment(s) Cough and deep breathe Respiratory Treatment(s) Cough and deep breathe Respiratory WNL except . Vital Signs : VITAL SIGNS SECTION 08/07/2023 23:30 EDT Temperature 98.5 DegF Temperature Route Oral Pulse Rate 93 bpm H Respiratory Rate 20 br/min Systolic Blood Pressure 108 mm Hg Diastolic Blood Pressure 76 mm Hg Blood pressure sites Arm, right Mean Arterial Pressure 87 mm Hg Pulse Pressure 32 mm Hg Oxygen Saturation 96 % Mode of Delivery (Oxygen) Room air 08/07/2023 22:13 EDT Early Warning Score 1.00 08/07/2023 22:11 EDT Respiratory Rate 18 br/min 08/07/2023 21:00 EDT Respiratory Rate 18 br/min 08/07/2023 19:51 EDT Early Warning Score 1.00 08/07/2023 19:51 EDT Temperature 98.3 DegF Temperature Route Oral Pulse Rate 89 bpm Respiratory Rate 20 br/min Systolic Blood Pressure 105 mm Hg Diastolic Blood Pressure 63 mm Hg Blood pressure sites Arm, right Mean Arterial Pressure 77 mm Hg Pulse Pressure 42 mm Hg Oxygen Saturation 96 % Mode of Delivery (Oxygen) Room air . Evaluation P: per nursing care plan I: r/t nursing care plan E: Assumed care of patient at 1830, pt assessed sleeping, easily arousable to verbal stimuli, appears withdrawn and depressed, flat affect noted, afebrile, VS wnl. Pt endorses chest pain, present since initial admission, reproducable with palpation, requesting apap and oxycodone, admin per order with good effect. Respirations even and unlabored on room air, denies sob. Patient offers no complaints at this time, no acute events overnight to this am. Denies NVD, tolerating po intake without difficulty. States voiding in BR, denies dysuria. Educated patient on plan of care and call campos use, fall risk precautions in place, call campos within reach, hourly rounding maintained. See CIS for full ass essment data and flow sheets, will continue monitoring as needed. . * Rosario HANNON, [place]: PERFORM Event Display: Progress Note Hospital Authored Date: [id number] Patient: ??KANWAL, NELIDA ? Age:??32 Years?Sex:??Female?:??1990?? Subjective Seen and examined Afebrile over 24 hrs diarrhea improved ?? Review of Systems Constitutional: No fever or chills. ENT: No sore throat or nasal congestion. Respiratory: No shortness of breath or cough??. Cardiovascular: No chest pain or??palpitation. Gastrointestinal: No nausea, vomiting or diarrhea. Skin: No rash or lesion Neurology: No speech problem no vision problem no focal weakness, no dizziness. Psychiatric: Cooperative, normal mood and affect Objective ?? Physical Exam Awake, alert, oriented Lungs: Clear to auscultation bilateral, no wheezing no rales Heart: Regular rate and rhythm, no murmur, no rub or gallop Abdomen: Soft, nontender, nondistended; Bowel sounds present Extremity: No edema cyanosis clubbing Neurological: No focal deficit Psychiatric: Normal mood and affect Assessment/Plan Assessment:? 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 Sent to the emergencyroom by her PCP for evaluation of fever. Patient was febrile at 102 in the emergency room also tachycardic, she was seen by infectious disease who recommended treatment with Zithromax and also pulmonology evaluation for a bronchoscopy. ? AIDS (B20): . 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 ??Fever at risk for Legionella pneumonia or opportunistic infection ?? S/P bronchoscopy and BAL??on 08/04, no sig finding AFB negative gram stain and CS negative ?#Right parahilar mass (06/2023; [facility]); diagnostic eval showing only legionella, non-pneumophila and non-COVID coronavirus (NB: incomplete diagnostic eval, no AFB smear/mycobacterial Cx) ??#Persistent fever, cough, chest pain, night sweats ??#Hx of pulmonary mycobacterium avium, diagnosed on the basis of left hilar bx in 07/2022, untreated ??Concern for; opportunistic infection although patient has been on PJP ppx, cryptococcus and/or viral infections including CMV; disseminated MAC with known diagnosis and no treatment. ?IRIS is likely with rapid virologic suppression over the past three weeks of restarting ART. This could unmask of previously subclinical opportunistic infections and/or paradoxically worsen of previously identified OIs i.e. MAC. ?Mycobacterium TB is also a possibility. Likely to need repeat bronchoscopy for definitive diagnosis. ??While it legionella-non pneumophila was isolated from 07/19 BAL at [facility], continue with azithromycin 600 mg daily and ethambutol 15 mg/kg daily to treat for possible active MAC infection. This will also cover for legionella infection. ??Respiratory viral panel negative serum cryptococcus Ag, is negative, blood cultures negative ? S/P bronchoscopy and BAL on 08/04, no sig finding ?? AFB negative ?? gram stain and CS negative ?? Plan: Will continue Biktarvy and atovaquone prophylaxis Will??continue Azithromycin and Ethambutol ?? Waiting for final ID recommendation ?Chronic diarrhea, patient reports she takes as needed Imodium ?Diarrhea improved ?VTE Prophylaxis: as per guideline ? Low risk out of bed and ambulate ?Pneumo boot Code Status: full code ? Discharge Planning:?? Pending ID clearance ? Consult note * Cedric HANNON, Praveen: MODIFY, MODIFY, MODIFY, PERFORM, MODIFY, MODIFY Event Display: Consultation Note Authored Date: [id number] Patient: ??NELIDA HOPKINS ? Age:??32 Years?Sex:??Female?:??1990?? Subjective Patient febrile yesterday at 101.4 and requiring multiple doses acetaminophen daily. She continues to have diarrhea, abdominal pain, and??chest pain with coughing and deep inspiration. Patient deniesheadache, dizziness, vision changes, dysuria, dyspnea, joint pain or swelling. Review of Systems All pertinent review of systems included in HPI. Review otherwise negative.?? Objective Vital Signs?? Temperature: 98.9 DegF (08/07/23 07:42:00) Temperature Route: Oral (08/07/23 07:42:00) Pulse Rate:??95 bpm??High (08/07/23 07:42:00) Respiratory Rate: 18 br/min (08/07/23 07:45:00) Systolic Blood Pressure: 112 mm Hg (08/07/23 07:42:00) Diastolic Blood Pressure: 74 mm Hg (08/07/23 07:42:00) Blood pressure sites: Arm, right (08/07/23 07:42:00) Mean Arterial Pressure: 87 mm Hg (08/07/23 07:42:00) Pulse Pressure: 38 mm Hg (08/07/23 07:42:00) Oxygen Saturation: 96 % (08/07/23 07:42:00) Mode of Delivery (Oxygen): Room air (08/07/23 07:42:00) Early Warning Score: 1 (08/07/23 09:29:45) ? Intake/Output? 08/02 01:22 08/07 07:00 08/06 07:00 08/05 07:00 08/04 07:00 ?? 08/07 09:52 08/07 09:52 08/07 06:59 08/06 06:59 08/05 06:59 Intake ? 2059 ?0 ?0 ?0 ?960 Output ?0 ?0 ?0 ?0 ?0 Net Total ? 2059 ?0 ?0 ?0 ?960 ? Urine Count ?3 ?0 ?0 ?0 ?3 ? Physical Exam Constitutional: Alert, in no distress. Mental Status: Oriented to person, place and time. Ear, Nose and Throat: Oropharynx clear, mucous membranes moist. Neck: Supple, Full range of motion. Respiratory: Clear to auscultation. No wheezing, rales or rhonchi. Cardiovascular: S1 S2 regular. No murmurs, rubs or gallops. Gastrointestinal: Abdomen soft, non-distended, diffusely tender. Neurologic: Cranial nerves II-XII grossly intact. No focal neurological deficits. Moves all extremities spontaneously. Skin: No rashes or lesions. No petechiae or purpura.?? Musculoskeletal: No cyanosis or clubbing. No gross deformities. Normal range of motion. Psychiatric: Normal mood and affect Assessment/Plan Nelida Hopkins is a 32-year-old female??with advanced AIDS in the setting of longstanding ART nonadherence (dx 2007; CD4 < 100 since 2016, as per ID note her current CD4 undetectable and HIV VL 500K), pulmonary MAC (08/2022 EBUS biopsy, received treatment with rifabutin, azithromycin, ethambutol),??anemia. ??Patient was sent to ER by her PCP/ID after an appointment yesterday after multiple hosp italizations for fever, cough and chest pain without any resolution. ?? #Advanced AIDS (CD4 <20, HIV VL 550,000 07/09/2023) in setting of longstanding ART non-adherence #Rapid immune reconstitution on ART (CD4 <20 -> 220; HIV VL 550,000 -> 45 over a 16d period (07/09-07/25/2023)) #Right parahilar mass (06/2023; [facility]); diagnostic eval showing only legionella, non-pneumophila and non-COVID coronavirus (NB: incomplete diagnostic eval,??no AFB smear/mycobacterial??Cx)?? #Persistent fever, cough,??chest pain, night sweats #Hx of pulmonary mycobacterium avium, diagnosed on the basis of left hilar bx in 07/2022, untreated ? Infectious differential includes pneumonia recent diagnosis of legionella and treatment not know; opportunistic infection although patient has been on PJP ppx,??cryptococcus and/or viral infections including CMV; disseminated MAC with known diagnosis and no treatment.?? Importantly, the contribution of IRIS is likely with??rapid virologic suppression over the past three weeks of restarting ART. This??could unmask of previously subclinical opportunistic infections and/or paradoxically worsen of previously??identified OIs i.e. MAC. Recrudescence of known pulmonary mycobacterium avium is a leading diagnostic consideration here.?? Mycobacterium TB is also a possibility. While legionella-non pneumophila was isolated from 07/19 BAL at [facility], this may not be causing allpatient's symptoms. It is possible that there are multiple pathogens at play in a patient with thislevel of profound immunosuppression. ?? Patient has had GI symptoms since admission, which has not been considered as another possible??source of infections. ?? Microbiology results: - cryptococcal antigen - negative - blood culture X2 on 08/01/23 - NGTD - PCR respiratory panel - negative - BAL culture/gram stain 08/04: bacterial, fungal, AFB negative, pending final report ? Plan: - Obtain GI PCR, ova and parasite, cryptosporidium??antigen -??Continue azithromycin 500 mg daily and ethambutol 1200mg daily to treat for??presumed MAC infection. This will also cover for legionella infection. -??Testing: legionella urine Ag, sputum AFB culture??X3, histoplasma urine antigen - It was recommended for biopsy of lymph node from bronchoscopy??for??fungal, bacterial, and mycobacterial culture from biopsy and for??histopathology sample to r/o cancer. May need to consult IR if indicated. - Request??micro lab for MAC susceptibilities -??Since mycobacterium TB is??possible, patient should be isolated in??negative pressure room. Pending concentrated smear from state reference laboratory for isolation clearance. - Continue Biktarvy - Continue atovaquone PJP prophylaxis, duration is 6 months since patient's CD4?? count >200 on 07/25 - ID will continue to follow ? Patient seen and discussed with attending, Dr. Araujo ?? Praveen Steele MD Internal Medicine, PGY-1 Pager # [phone] ? * Rose Araujo MD: PERFORM Event Display: Consultation Note Authored Date: I have seen and examined the patient and agree with the above note by??Dr. Steele. The plan was formulated in conjunction with me and I agree with it as written. When I saw Ms. Hopkins this morning, she was endorsing diarrhea and abdominal discomfort. Given her immunocompromised status, we need to exclude possible GI OIs that could be contributing like Cryptosporidium, Cyclospora, and Isospora. Given this, I would send a GI PCR, stool Cryptosporidium antigen, and a ova & parasite test. For now, while these tests are pending, please do not give her Imodium. I would continue her on airborne precautions until the concentrated AFB smear from her bronchoscopy returns--if that is negative, the p recautions can be lifted. ?Rose Araujo MD, MPH ? * Rose Araujo MD: PERFORM Event Display: Consultation Note Authored Date: I just spoke??to Dr. Ramirez, Ms. Hopkins's PCP and HIV provider. ??The patient is very antsy to get out of here??and it is not clear how much longer she would be willing to stay. ??At this point, her major outstanding test is??the concentrated AFB smear??to fully rule out MTB. ??However, both?? and myself think that she is fairly low risk for MTB??as??she was previously ruled out in September, and this test can be followed as an outpatient and does not??require??her to stay in the hospital??as long as she is willing to comply with community isolation??until it comes back.?? Given this, if she??does want to leave today, I am comfortable with having her be discharged on Biktarvy??for HIV,??atovaquone??1500 mg daily for PJP prophylaxis,??and ethambutol 1200 mg daily plus azithromycin 500 mg daily??for MAC. ??Dr. Ramirez will arrange for follow-up in clinic and will send the ethambutol and azithromycin prescriptions to [facility] specialty pharmacy. ?Rose Araujo MD, MPH ? * Cedric HANNON, Praveen: PERFORM, MODIFY, MODIFY Event Display: Consultation Note Authored Date: [id number] Patient: ??NELIDA HOPKINS ? Age:??32 Years?Sex:??Female?:??1990?? Subjective Patient anxious that she keeps fevering and that may prevent bronchoscopy from happening today. Sheis feeling nauseous and had thrown up one time this morning. She thinks it is because she??is npo and just took her medications. Patient continues to cough and have mild abdominal pain. She denies back pain, headache, dizziness,dysuria Review of Systems All pertinent review of systems included in HPI. Review otherwise negative.?? Past Medical History Active Problems??(9) Acquired immune deficiency syndrome (AIDS) with CD4 108 on 09/27/16 Anal fissure Axillary hidradenitis suppurativa, chronic and severe. not in groin area. 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 Objective Vital Signs?? Temperature: 97.7 DegF (08/04/23 13:36:00) Temperature Route: Temporal (08/04/23 13:36:00) Pulse Rate: 79 bpm (08/04/23 13:36:00) Respiratory Rate: 20 br/min (08/04/23 13:36:00) Systolic Blood Pressure: 121 mm Hg (08/04/23 13:36:00) Diastolic Blood Pressure:??85 mm Hg??High (08/04/23 13:36:00) Blood pressure sites: Arm, left (08/04/23 13:36:00) Mean Arterial Pressure: 97 mm Hg (08/04/23 13:36:00) Pulse Pressure: 42 mm Hg (08/04/23 10:58:00) Oxygen Saturation: 99 % (08/04/23 13:36:00) Mode of Delivery (Oxygen): Room air (08/04/23 13:36:00) Early Warning Score: 5 (08/04/23 13:40:00) ? Intake/Output? 08/02 01:22 08/04 07:00 08/03 07:00 08/02 07:00 08/01 07:00 ?? 08/04 15:36 08/04 15:36 08/04 06:59 08/03 06:59 08/02 06:59 Intake ? 1760 ?660 ?0 ? 1100 ?0 Output ?0 ?0 ?0 ?0 ?0 Net Total ? 1760 ?660 ?0 ? 1100 ?0 ? Physical Exam Constitutional: Alert, in no distress. Mental Status: Oriented to person, place and time. Head: Normocephalic. Eyes: Pupils are equal, round and reactive to light. Extraocular muscles intact. Ear, Nose and Throat: Oropharynx clear, mucous membranes moist. Ears and nose without masses, lesions or deformities. Trachea midline. Neck: Supple, Full range of motion. Respiratory: Clear to auscultation. No wheezing, rales or rhonchi. Cardiovascular: S1 S2 regular. No murmurs, rubs or gallops. Gastrointestinal: Abdomen soft, non-tender, non-distended. Normal bowel sounds. No pulsatile mass. No hepatosplenomegaly. Genitourinary: No costovertebral angle tenderness. Neurologic: Cranial nerves II-XII grossly intact. No focal neurological deficits. Flexor plantar response. Moves all extremities spontaneously. Sensation intact bilaterally. Skin: No rashes or lesions. No petechiae or purpura.?? Musculoskeletal: No cyanosis or clubbing. No gross deformities. Normal range of motion. Heme/Lymphatics/Immun: Palpation of neck reveals no swelling or tenderness of neck nodes. Palpationof groin reveals no swelling or tenderness of groin nodes. 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 ??Patient was sent to ER by her PCP/ID after an appointment yesterday after multiple hosp italizations for fever, cough and chest pain without any resolution. ?? #Advanced AIDS (CD4 <20, HIV VL 550,000 07/09/2023) in setting of longstanding ART non-adherence #Rapid immune reconstitution on ART (CD4 <20 -> 220; HIV VL 550,000 -> 45 over a 16d period (07/09-07/25/2023)) #Right parahilar mass (06/2023; [facility]); diagnostic eval showing only legionella, non-pneumophila and non-COVID coronavirus (NB: incomplete diagnostic eval,??no AFB smear/mycobacterial??Cx)?? #Persistent fever, cough,??chest pain, night sweats #Hx of pulmonary mycobacterium avium, diagnosed on the basis of left hilar bx in 07/2022, untreated ? Infectious differential includes pneumonia recent diagnosis of legionella and treatment not know; opportunistic infection although patient has been on PJP ppx,??cryptococcus and/or viral infections including CMV; disseminated MAC with known diagnosis and no treatment.?? Importantly, the contribution of IRIS is likely with??rapid virologic suppression over the past three weeks of restarting ART. This??could unmask of previously subclinical opportunistic infections and/or paradoxically worsen of previously??identified OIs i.e. MAC. Recrudescence of known pulmonary mycobacterium avium is a leading diagnostic consideration here.?? Mycobacterium TB is also a possibility.??Likely to need repeat bronchoscopy for definitive diagnosis.?? While it legionella-non pneumophila was isolated from 07/19 BAL at [facility], this may not be causing all patient's symptoms. It is possible that there are multiple pathogens at play in a patient with this level of profound immunosuppression. ?? Microbiology results: - cryptococcal antigen - negative - blood culture X2 on 08/01/23 - NGTD - PCR respiratory panel - negative ? Plan: -??Continue azithromycin 500 mg daily and ethambutol 1200mg daily to treat for??presumed MAC infection. This will also cover for legionella infection. -??Testing: legionella urine Ag, sputum AFB culture??X3, histoplasma urine antigen - Consult Pulmonology for repeat bronch and BAL,??-- send for Gm stain /culture, fungal cx, ??AFB, PJP stain - Obtain lymph node biopsies from bronchoscopy or IR; obtain fungal, bacterial, and mycobacterial culture from biopsy; obtain histopathology sample to r/o cancer - Request??micro lab for MAC susceptibilities -??Since mycobacterium TB is??possible, patient should be isolated in??negative pressure room pending work up - No indication for steroids at this time - Continue Biktarvy - Continue atovaquone PJP prophylaxis, duration is 6 months since patient's CD4?? count >200 on 07/25 - ID will continue to follow ? Patient seen and discussed with attending, Dr. Kramer ?? Praveen Steele MD Internal Medicine, PGY-1 Pager # [phone] ? * Tapan Kramer MD: PERFORM Event Display: Consultation Note Authored Date: I have seen and examined the patient as well today and I agree with the HPI, physical exam findings, impression and recommendations as outlined in the fellow's/resident's/PA/COURSEWARE DEVELOPER note as they reflect my direct input. Please page the author of the note for any clarifications. * Juventino Ovalle MD, Santo Garcia: PERFORM Event Display: Consultation Note Authored Date: [id number] Patient: ??NELIDA HOPKINS ? Age:??32 Years?Sex:??Female?:??1990?? Chief Complaint Pneumonia Reason for Consultation Pneumonia, request for bronchoscopy History of Present Illness 32 YO F, Hx of HIV/AIDS,??pulmonary DEANGELO, mediastinal lymphadenopathy s/p EBUS- TBNA (non-caseating granuloma),??anemia, hospitalized since 08/02 for management of pneumonia. Pulmonary team is consultedfor bronchoscopy BAL.? Nelida presented with cough, SOB, fever, and pleuritic chest pain intermittently for few weeks.Associated with night sweats, loss of appetite and weight loss. She was hospitalized at [facility] three times since end of June for pneumonia. She underwent bronchoscopy with BAL of the posterior segment of RUL and transbronchial biopsies (lung parenchyma with pigment-laden macrophages).??Infectious work-up only revealed??non-COVID coronavirus and positive legionella.??She was treated with ABx and prednisone (for ?IRIS) during her hospitalization.? At [facility], she was started on Ethambutol and Azithromycin for possible active DEANGELO infection. ID team recommended bronchoscopy to obtain cultures and AFBs to further guide ABx therapy. Patient is in agreement with bronchoscopy.?? Review of Systems Review of all systems??is negative except as noted in HPI Physical Exam Vitals & Measurements T:??102.7?F?? TMIN:??97.5?F?? TMAX:??102.7?F?? HR:??93??(Peripheral)?? RR:??18?? BP:??135/75?? SpO2:??100%?? WT:??81??kg?? Constitutional: Alert, in no distress. Mental Status: Oriented to person, place and time. Eyes: Pupils are equal, round and reactive to light. Ear, Nose and Throat: Oropharynx clear, mucous membranes moist. Ears and nose without masses, lesions or deformities. Trachea midline. Respiratory: Clear to auscultation. No wheezing, rales or rhonchi. Cardiovascular: S1 S2 regular. No murmurs, rubs or gallops. Gastrointestinal: Abdomen soft, non-tender, non-distended. Normal bowel sounds.?? Neurologic: Cranial nerves II-XII grossly intact. No focal neurological deficits. Moves all extremities spontaneously.?? Skin: No rashes or lesions.?? Musculoskeletal: No cyanosis or clubbing. Psychiatric: Normal mood and affect?? Assessment/Plan Assessment: #HIV/AIDS (CD4 <20), non-adherent to ART. #IRIS. #Mediastinal and hilar adenopathy s/p EBUS-TBNA in 07/2022. Negative for malignant cells. #Hx of pulmonary mycobacterium avium, +ve sputum test in 08/2022,??untreated. #Left hilar mass 07/2022 s/p EBUS-TBNA. Revealed??non-caseating granuloma. #Right parahilar mass s/p bronchoscopy at [facility] in 06/2023.??Revealed??legionella, non-pneumophila and non-COVID coronavirus.??AFB smear/mycobacterial??Cx were not sent.? #Multiple bilateral (R>L) micro nodules, concerning for opportunistic infections mainly??DEANGELO. Recommendations: - Plan for bronchoscopy with BAL tomorrow Monday08/04/23 at 2pm. Please keep patient NPO after midnight. - ABx therapy per ID team. - Will cont. to follow. Problem List/Past Medical History Ongoing Acquired immune deficiency syndrome (AIDS) with CD4 108 on 09/27/16 Anal fissure Axillary hidradenitis suppurativa, chronic and severe. not in groin area. 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 delivery (10/20/2008) Medications Inpatient Acetaminophen Tablet, 650 mg, By Mouth, Every 4 hours, PRN Atovaquone Liquid, 1500 mg= 10 mL, By Mouth, Daily Azithromycin Tablet, 500 mg, By Mouth, Daily Biktarvy Tablet, 1 tablet, By Mouth, Daily Breo Ellipta 100 mcg-25 mcg Inhaler, 1 puffs, Inhalation, Daily Ethambutol Tablet, 1200 mg, By Mouth, Daily Imodium Capsule, 2 mg, By Mouth, Every 3 hours, PRN LR 1,000 mL, 1000 mL, IV Infusion Melatonin Tablet, 3 mg, By Mouth, Daily at bedtime, PRN NaCL 0.9% Flush, 3 mL, IV Push, Every 8 hours NaCL 0.9% Flush, 3 mL, IV Push, Every 8 hours, PRN oxyCODONE 5 mg oral tablet, 5 mg, By Mouth, Every 8 hours, PRN Robitussin DM Liquid, 10 mL, By Mouth, Every 4 hours, PRN Simethicone Tablet, 80 mg, Chew, 3 times a day, PRN Home acetaminophen 500 mg oral tablet, 1000 mg= 2 tablet, By Mouth, 3 times a day atovaquone 750 mg/5 mL oral suspension, 1500 mg= 10 mL, By Mouth, Daily, 11 refills Biktarvy oral tablet, 1 tablet, By Mouth, Daily, 11 refills oxyCODONE 5 mg oral tablet Ventolin HFA 108 mcg/inh inhalation aerosol with adapter, 2 puffs, Inhalation, 4 times a day, PRN, 11 refills Allergies Bactrim??(Dairy food intake) dapsone??(09/2019 developed rash on dapsone/trimethoprim) doxycycline??(itchy rash) rifabutin??(severe arthralgias) Social History Alcohol Use: Never. Electronic Cigarette/Vaping Electronic Cigarette Use: Never. Substance Abuse Use: Current. Type: Marijuana. Tobacco Use: 4 or less cigarettes(less than 1/4 pack)/day in last 30 days. Family History Family history is negative Immunizations Vaccine Date Status influenza virus vaccine, inactivated - Not Given Comments : Patient Refuses tetanus/diphtheria/pertussis, acel(Tdap) 02/16/2017 Given pneumococcal 13-valent vaccine 12/24/2014 Recorded influenza virus vaccine, inactivated 12/24/2014 Recorded tetanus/diphtheria/pertussis, acel(Tdap) 12/24/2014 Recorded Diagnostic Results Chest CT personally reviewed and agree with the radiologist's interpretation unless otherwise specified. ?? COMPARISON: 10/04/2022. ?? FINDINGS:? Private Duty Lpn view findings, lines and tubes: None. ?? Trachea and airways: Patent without evidence of tracheal or endobronchial lesion. ?? Lungs and pleura: Multiple bilateral, mostly right lung solid nodules that are new or have increased in size from prior, largest is a 9 mm lateral right upper lobe nodule (series 205:30). A few of these nodules have adjacent spiculation or hazy opacities. The more inferior lateral nodule measuring 1.0 cm with adjacent spiculation has increased in size from prior (series 205:43). ?? Increased medial right lower lobe bronchiectasis with bronchial wall thickening suggesting bronchitis, and a thick band coursing superiorly to measure the right major fissure that measures up to 1.2 cm in maximal thickness (series 205:56). ?? Background of minimal centrilobular emphysema. ?? No effusion or pneumothorax. ?? Mediastinum and genny: Marked increase in mediastinal and hilar lymphadenopathy, for example subcarinal lymph node measures roughly 4.4 x 2.0 cm (series 201:44), and prevascular lymph node measures 2.3 x 1.6 cm (series 201:26). Previously seen large large paratracheal lymph node is not seen on current study. There are also multiple borderline enlarged supraclavicular lymph nodes. ?No esophageal abnormality. Partially imaged thyroid is unremarkable. ?? Heart: Heart is normal in size. Trace pericardial fluid without flex effusion. ?? Aorta: No aortic aneurysm. ?? Pulmonary arteries: Normal caliber. No evidence of pulmonary embolism on this study performed without angiographic technique. ?? Chest wall soft tissues: No acute abnormality. ?? Diaphragm: Intact. ?? Liver: Normal in attenuation and morphology. No suspicious lesion. ?? Gallbladder: No CT evidence of gallbladder pathology. ?? Bile ducts: No biliary ductal dilation. ?? Spleen: Upper normal in size. There are several too small to assess low-density foci in the spleen,nonspecific. ?? Pancreas: No suspicious lesion or ductal dilatation. ?? Adrenal glands: No nodule. ?? Kidneys and ureters: No hydronephrosis, stone, or suspicious lesion. ?? Bladder: No wall thickening or surrounding stranding. ?? Reproductive organs: Unremarkable. ?? Stomach, small bowel, and large bowel: Minimal wall thickening of the stomach which may be due to gastritis or underdistention. The remainder of the small bowel and the large bowel are unremarkable. ?? Appendix: Surgically absent. ?? Peritoneum and retroperitoneum: No ascites or pneumoperitoneum. No omental or mesenteric lesions. ?? Lymph nodes: Extensive retroperitoneal and mesenteric lymphadenopathy with adjacent fat stranding, for example an aortocaval lymph node measures 2.2 x 1.8 cm (series 201:112), and multiple mesentericlymph nodes with the largest measuring 2.5 x 2.2 cm in the left mid abdomen (series 201:127). ?? Blood vessels: No vascular calcifications or aneurysm. No evidence of venous thrombosis. ?? Abdominal and pelvic wall soft tissues: No acute abnormality. ?? Bones: No acute abnormality. ?? IMPRESSION: ?? Findings including multiple bilateral new nodules and bronchitis change in the right lower lobe aresuspicious for a pulmonary infectious/inflammatory process. According to the chart, patient has been recently diagnosed with Legionella pneumonia and has history of Mycobacterium avium complex infection. ?? Extensive mediastinal, abdominal, and mesenteric lymphadenopathy. Differential in an HIV patient include Persistent Generalized Lymphadenopathy, mycobacterial infection, and immune reconstitution inflammatory syndrome (IRIS) given patient's recent start of HAART medications, or a combination thereof. Given history of MAC, prolonged low CD4 count combined with patient's complaint of pain and fever, this suggests a combination of MAC and IRIS to be the most likely diagnosis. ?? Minimal wall thickening of the stomach may be due to gastritis or underdistention. ?? Note * Palmira Ivey LPN: PERFORM Event Display: Discharge/Transfer Note Hospital Authored Date: [id number] Nursing Discharge Note Entered On: 08/08/2023 15:34 EDT Performed On: 08/08/2023 15:34 EDT by Palmira Ivey LPN Nursing Discharge Note 2 Discharge Time : 08/08/2023 15:34 EDT Discharge Level of Care at Discharge : Home/Longterm/Foster Care Patient Left Unit Via : Wheelchair Patient Accompanied Off Unit with : Responsible adult DC Instructions Provided & Signed by Pt : Yes Patient Understands D/C Instructions : Yes Patient Instructions Discharge Signed : Yes Did Pt have Specialty Bed or Wound Vac : No Palmira Ivey LPN - 08/08/2023 15:34 EDT * Rosario HANNON, Santo Ortega: PERFORM Event Display: Discharge/Transfer Note Hospital Authored Date: [id number] Patient: ??NELIDA HOPKINS ? Age:??32 Years?Sex:??Female?:??1990?? Patient Information Discharge Location: B Primary Care Physician: Carol Ramirez MD Admit Date/Time: 08/02/23 01:22 Discharge Disposition Discharge Disposition: ?? 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 _ Discharge Medications Acetaminophen (acetaminophen 500 mg oral tablet)?2?tab(s)?1,000?Milligram?By Mouth?3 times a day?prn pain and fever Albuterol (Ventolin HFA 108 mcg/inh inhalation aerosol with adapter)?2?puff(s)?Inhalation?4 times a day?as needed?Wheezing/Shortness of Breath Atovaquone (atovaquone 750 mg/5 mL oral suspension)?10?Milliliter?1,500?Milligram?ByMouth?Daily?for 30?Days?with meals Azithromycin (azithromycin 500 mg oral tablet)?1?tab(s)?500?Milligram?By Mouth?Daily?for 30?Days?Treatment of MAC. ??Pls deliver to patient 08/09/2023 bictegravir/emtricitabine/tenofovir (Biktarvy oral tablet)?1?tab(s)?By Mouth?Daily?for 30?Days Ethambutol (ethambutol 400 mg oral tablet)?3?tab(s)?1,200?Milligram?By Mouth?Daily?for 30?Days?Treatment of MAC. ??Take 3 tablets together (total dose of 1,200mg) daily. ??Pls deliver to pt for 08/09/2023 Oxycodone (oxyCODONE 5 mg oral tablet)?short course #20 dispensed on 07/24/23 ? Quality Measures Tobacco Use Treatment:? Allergies Allergies ?(Active and Proposed Allergies Only) rifabutin? (Severity: Unknown severity, Onset: Unknown) ?Reactions: severe arthralgias dapsone? (Severity: Unknown severity, Onset: Unknown) ?Reactions: 09/2019 developed rash on dapsone/trimethoprim doxycycline? (Severity: Unknown severity, Onset: Unknown) ?Reactions: itchy rash Bactrim? (Severity: Unknown severity, Onset: Unknown) ?Reactions: Dairy food intake ? Future Appointments Monday 9:50 AM EDT ?? With: Carol Ramirez MD Where: [place] [address]- Status: Pending Hospital Course ?? 32 y/o female with h/o HIV (dx 2007; CD4 < 100 since 2016) with advanced AIDS in the setting of longstanding ART nonadherence, pulmonary MAC (08/2022, received treatment with rifabutin, azithromycin, ethambutol), and presumptive history of PJP pneumonia (09/2020), anemia. Sent to the emergency room by her PCP for evaluation of fever. Patient was febrile at 102 in the emergency room also tachycardic, she was seen by infectious disease who recommended treatment with Zithromax and also pulmonology evaluation for a bronchoscopy. ? AIDS (B20): . 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 ?Fever at risk for Legionella pneumonia or opportunistic infection ?#Right parahilar mass (06/2023; [facility]); diagnostic eval showing only legionella, non-pneumophila and non-COVID coronavirus (NB: incomplete diagnostic eval, no AFB smear/mycobacterial Cx) ?#Persistent fever, cough, chest pain, night sweats ?#Hx of pulmonary mycobacterium avium, diagnosed on the basis of left hilar bx in 07/2022, untreated ?Concern for; opportunistic infection although patient has been on PJP ppx, cryptococcus and/or viral infections including CMV; disseminated MAC with known diagnosis and no treatment. ?IRIS is likely with rapid virologic suppression over the past three weeks of restarting ART. This could unmask of previously subclinical opportunistic infections and/or paradoxically worsen of previously identified OIs i.e. MAC. ?Mycobacterium TB is also a possibility. Likely to need repeat bronchoscopy for definitive diagnosis. ?While it legionella-non pneumophila was isolated from 07/19 BAL at [facility], continue with azithromycin 600 mg daily and ethambutol 15 mg/kg daily to treat for possible active MAC infection. This will also cover for legionella infection. ?Respiratory viral panel negative serum cryptococcus Ag, is negative, blood cultures negative ? S/P bronchoscopy and BAL on 08/04, no sig finding ??AFB negative ??gram stain and CS negative ?ID waiting for TB clearance on concentrated smear that was sent to reference lab in [place] on admission. Patient wants to go hoem ?? Her pcp and primary ID physician Dr. Ramirez??spoke with Dr. Carter and decided that Dr. Ramirez will follow-up the test and advised to d/c her ?? Patient??will continue treatment for mycobacterium avium (MAC) with ethambutol and azithromycin.??Dr. Ramirez??will send prescriptions for these medications, as well as oxycodone, to [facility] (they will deliver to her tomorrow) . She will continue Biktarvy and atovaquone, which she has an adequate supply of at home.? I ?Plan: ??Will continue Biktarvy and atovaquone prophylaxis ??Will continue Azithromycin and Ethambutol ?F/eup with Dr. Ramirez??next??Tuesday 08/14 at 1pm. ?Chronic diarrhea, patient reports she takes as needed Imodium ?Diarrhea improved ?Code Status: full code ? Objective Vital Signs?? Temperature: 98.2 DegF (08/08/23 12:32:00) Temperature Route: Oral (08/08/23 12:32:00) Pulse Rate: 83 bpm (08/08/23 12:32:00) Respiratory Rate: 18 br/min (08/08/23 12:32:00) Systolic Blood Pressure: 122 mm Hg (08/08/23 12:32:00) Diastolic Blood Pressure: 76 mm Hg (08/08/23 12:32:00) Blood pressure sites: Arm, right (08/08/23 12:32:00) Mean Arterial Pressure: 91 mm Hg (08/08/23 12:32:00) Pulse Pressure: 46 mm Hg (08/08/23 12:32:00) Oxygen Saturation: 99 % (08/08/23 12:32:00) Mode of Delivery (Oxygen): Room air (08/08/23 12:32:00) Early Warning Score: 1 (08/08/23 12:33:49) ? . Physical Exam Awake, alert, oriented Lungs: Clear to auscultation bilateral, no wheezing no rales Heart: Regular rate and rhythm, no murmur, no rub or gallop Abdomen: Soft, nontender, nondistended; Bowel sounds present Extremity: No edema cyanosis clubbing Neurological: No focal deficit Psychiatric: Normal mood and affect Surgical Procedures Bronchoscopy with Bronchial Aveolar Lava 08/04/2023 16:05 Pending Results AFB Culture w/ AFB Smear, Respiratory ordered on 08/02/2023 AFB Culture w/ AFB Smear, Respiratory ordered on 08/02/2023 AFB Culture w/ AFB Smear, Respiratory ordered on 08/02/2023 AFB Culture w/ AFB Smear, Respiratory ordered on 08/04/2023 Add On Lab Order ordered on 08/01/2023 Add On Lab Order ordered on 08/01/2023 Blood Culture for AFB ordered on 08/01/2023 Chlamydia pneumoniae PCR, non Blood ordered on 08/04/2023 Cytology Reports General ordered on 08/04/2023 Fungal Culture, Respiratory ordered on 08/04/2023 GI Profile, Stool, PCR ordered on 08/07/2023 Histoplasmosis Antigen ordered on 08/04/2023 Legionella Antigen Urine ordered on 08/02/2023 Legionella Species Culture ordered on 08/04/2023 Mycoplasma pneumoniae PCR Non Blood ordered on 08/04/2023 Ova and Parasite Exam ordered on 08/07/2023 Sputum Culture w/ Gram Smear ordered on 08/02/2023 Strep Pneumoniae Urinary Ag ordered on 08/02/2023 Follow-Up Appointments Added Follow Up ?Time Frame ?Comments Carol Ramirez MD?08/14/2023 13:00 Home Health Face to Face ^HomeHealthFTF Results Discharge Labs BLOOD COUNT & DIFF WBC 5.9 k/mm3 ()?? 08/07/2023 00:51 RBC 2.80 m/mm3 (Low)?? 08/07/2023 00:51 Hgb 8.4 Gm/dL (Low)?? 08/07/2023 00:51 Hct 26.5 % (Low)?? 08/07/2023 00:51 MCV 94.6 femtoliters ()?? 08/07/2023 00:51 MCH 30.0 pg ()?? 08/07/2023 00:51 MCHC 31.7 g/dL (Low)?? 08/07/2023 00:51 Platelet Count 367 k/mm3 ()?? 08/07/2023 00:51 RDW-SD 61.6 femtoliters (High)?? 08/07/2023 00:51 MPV 11.7 femtoliters ()?? 08/07/2023 00:51 Nucleated RBC (Automated) 0.0 #/100 WBC'S ()?? 08/07/2023 00:51 Abs. NRBC 0.0 k/mm3 ()?? 08/07/2023 00:51 Abs. Neut 3.9 k/mm3 ()?? 08/07/2023 00:51 Abs. Lymph 1.3 k/mm3 ()?? 08/07/2023 00:51 Abs. Toole 0.5 k/mm3 ()?? 08/07/2023 00:51 Abs. Eo 0.1 k/mm3 ()?? 08/07/2023 00:51 Abs. Baso 0.0 k/mm3 ()?? 08/07/2023 00:51 Neut % 66.1 % ()?? 08/07/2023 00:51 Lymph % 21.5 % ()?? 08/07/2023 00:51 Toole % 9.0 % ()?? 08/07/2023 00:51 Eos % 1.5 % ()?? 08/07/2023 00:51 Baso % 0.7 % ()?? 08/07/2023 00:51 Imm Gran 1.2 % ()?? 08/07/2023 00:51 Abs. Imm Gran 0.1 k/mm3 ()?? 08/07/2023 00:51 ?? CARDIAC High Sensitivity Troponin (HSTnT) 9 ng/L ()?? 08/02/2023 07:59 ? CHEM GENERAL Sodium 134 mmol/L ()?? 08/07/2023 00:51 Potassium 4.3 mmol/L ()?? 08/07/2023 00:51 Chloride 101 mmol/L ()?? 08/07/2023 00:51 Bicarbonate Level 22 mmol/L ()?? 08/07/2023 00:51 Anion Gap 11 ()?? 08/07/2023 00:51 Glucose Level 90 mg/dL ()?? 08/07/2023 00:51 BUN 8 mg/dL ()?? 08/07/2023 00:51 Creatinine-Blood 0.9 mg/dL ()?? 08/07/2023 00:51 Estimated GFR Creatinine 94 ML/MIN/1.73 M2 ()?? 08/07/2023 00:51 Calcium 8.4 mg/dL (Low)?? 08/04/2023 01:54 Magnesium 1.8 mg/dL ()?? 08/07/2023 00:51 Protein, Total 6.3 Gm/dL ()?? 08/01/2023 15:38 Albumin 3.0 Gm/dL (Low)?? 08/01/2023 15:38 AG Ratio 0.9 ()?? 08/01/2023 15:38 Alkaline Phosphatase 163 units/L (High)?? 08/01/2023 15:38 AST (SGOT) 18 units/L ()?? 08/01/2023 15:38 ALT (SGPT) 13 units/L ()?? 08/01/2023 15:38 Bilirubin, Total 0.8 mg/dL ()?? 08/01/2023 15:38 Lactate 1.5 mmol/L ()?? 08/01/2023 15:38 ? COAG INR 1.1 ()?? 08/02/2023 07:59 Protime (PT) 11.4 seconds ()?? 08/02/2023 07:59 APTT 29.8 seconds ()?? 08/02/2023 07:59 ? ENDOCRINE/TUMOR MARKER Blood <1 mIU/mL ()?? 08/01/2023 15:38 ? FLOW CYTOMETRY/IMMUNOPHENOTYPING Cd4/Cd8 Ratio 0.31 (Low)?? 08/01/2023 23:31 CD45 Lymph Abs Count, Flow 1039 cells/mm3 ()?? 08/01/2023 23:31 % CD4 (Hollis T Cells) 19 % (Low)?? 08/01/2023 23:31 Abs CD4 (Hollis T Cells) 195 cells/mm3 (Low)?? 08/01/2023 23:31 % CD8 (Suppressor T Cells) 61 % (High)?? 08/01/2023 23:31 Abs CD8 (Suppressor T Cells) 634 cells/mm3 ()?? 08/01/2023 23:31 % CD3 (T Cells) 86 % ()?? 08/01/2023 23:31 Abs CD3 (T Cells) 899 cells/mm3 ()?? 08/01/2023 23:31 % CD19 (B Cells) 5 % (Low)?? 08/01/2023 23:31 Abs CD19 (B Cells) 54 cells/mm3 (Low)?? 08/01/2023 23:31 % CD16+CD56 (NK Cells) 8 % ()?? 08/01/2023 23:31 Abs CD16+CD56 (NK Cells) 80 cells/mm3 ()?? 08/01/2023 23:31 ?? FLUID STUDIES Color, Fluid COLORLESS ()?? 08/04/2023 16:34 Appearance, Fluid CLOUDY ()?? 08/04/2023 16:34 WBC, Fluid 64 per Cubic Millimeter ()?? 08/04/2023 16:34 RBC, Fluid 49 per Cubic Millimeter ()?? 08/04/2023 16:34 Seg, Fluid 22 % ()?? 08/04/2023 16:34 Lymph, Fluid 22 % ()?? 08/04/2023 16:34 Toole, Fluid 2 % ()?? 08/04/2023 16:34 Other, Fluid 54 % ()?? 08/04/2023 16:34 Body Fluid Smear Interpretation OTHERS IN THIS CASE CONSTITUTE: ()?? 08/04/2023 16:34 ? MISC. CHEMISTRY Procalcitonin 0.95 ng/mL ()?? 08/02/2023 07:59 ? UA/URINALYSIS Appear/Color, Urine LIGHT YELLOW ()?? 08/01/2023 17:45 Specific [place], Urine <1.005 ()?? 08/01/2023 17:45 pH, Urine 7.0 ()?? 08/01/2023 17:45 Albumin, Urine NEGATIVE (N)?? 08/01/2023 17:45 Glucose, Urine NEGATIVE (N)?? 08/01/2023 17:45 Ketones, Urine NEGATIVE (N)?? 08/01/2023 17:45 Bilirubin, Urine NEGATIVE (N)?? 08/01/2023 17:45 Hemoglobin, Urine 2+ (Abnormal)?? 08/01/2023 17:45 Nitrite, Urine NEGATIVE (N)?? 08/01/2023 17:45 Leukocyte, Urine NEGATIVE (N)?? 08/01/2023 17:45 Urobilinogen NORMAL mg/dL (N)?? 08/01/2023 17:45 WBC's, Urine <1 /HPF ()?? 08/01/2023 17:45 RBC's, Urine <1 /HPF ()?? 08/01/2023 17:45 Bacteria SLIGHT HPF (Abnormal)?? 08/01/2023 17:45 Squamous Epith 1 /HPF ()?? 08/01/2023 17:45 Mucus SLIGHT /LPF ()?? 08/01/2023 17:45 Hold Urine Culture Testing available 48 hours from time of collection. ()?? 08/01/2023 17:45 ? URINE OTHER Est Creatinine Clearance 83.96 mL/min ()?? 08/07/2023 01:59 ? VIROLOGY HIV RNA Ultrasensitive 317 CP/ML (Abnormal)?? 08/01/2023 23:31 HIV Quant Log Result 2.50 LOGCP/ML ()?? 08/01/2023 23:31 Adenovirus by PCR NEGATIVE ()?? 08/03/2023 10:50 Coronavirus 229E by PCR (not COVID-19) NEGATIVE ()?? 08/03/2023 10:50 Coronavirus HKU1 by PCR (not COVID-19) NEGATIVE ()?? 08/03/2023 10:50 Coronavirus NL63 by PCR (not COVID-19) NEGATIVE ()?? 08/03/2023 10:50 Coronavirus OC43 by PCR (not COVID-19) NEGATIVE ()?? 08/03/2023 10:50 Human Metapneumovirus by PCR NEGATIVE ()?? 08/03/2023 10:50 Rhinovirus/Enterovirus by PCR NEGATIVE ()?? 08/03/2023 10:50 Influenza A by PCR NEGATIVE ()?? 08/03/2023 10:50 Influenza B by PCR NEGATIVE ()?? 08/03/2023 10:50 Parainfluenza 1 by PCR NEGATIVE ()?? 08/03/2023 10:50 Parainfluenza 2 by PCR NEGATIVE ()?? 08/03/2023 10:50 Parainfluenza 3 by PCR NEGATIVE ()?? 08/03/2023 10:50 Parainfluenza 4 by PCR NEGATIVE ()?? 08/03/2023 10:50 RSV by PCR NEGATIVE ()?? 08/03/2023 10:50 Bordetella Pertussis by PCR NEGATIVE ()?? 08/03/2023 10:50 Chlamydophila Pneumoniae by PCR NEGATIVE ()?? 08/03/2023 10:50 Mycoplasma Pneumoniae by PCR NEGATIVE ()?? 08/03/2023 10:50 COVID-19 by RT-PCR NEGATIVE ()?? 08/01/2023 23:42 COVID-19 (SARS-CoV-2) by PCR NEGATIVE ()?? 08/03/2023 10:50 Bordetella Parapertussis by PCR NEGATIVE ()?? 08/03/2023 10:50 ? Microbiology ?? Blood Culture?? Completed?? Source: Blood Body Site: ?? Collected Dt/Tm: 08/01/2023 15:23 Last Updated Dt/Tm: 08/01/2023 15:23 ?SPECIMEN DESCRIPTION : BLOOD LACSPECIAL REQUESTS : NONECULTURE : NO GROWTH 5 DAYS.REPORT STATUS: FINAL 08/06/2023 Blood Culture #2?? Completed?? Source: Blood Body Site: ?? Collected Dt/Tm: 08/01/2023 15:23 Last Updated Dt/Tm: 08/01/2023 15:23 ?SPECIMEN DESCRIPTION : BLOOD L ARMSPECIAL REQUESTS : NONECULTURE : NO GROWTH 5 DAYS.REPORT STATUS : FINAL 08/06/2023 COVID-19 (Novel Coronavirus), Rapid PCR?? Completed?? Source: Nasal Body Site: Nose Collected Dt/Tm: 08/01/2023 23:34 Last Updated Dt/Tm: 08/02/2023 01:19 Respiratory Pathogen PCR with COVID-19?? Completed?? Source: Nasal Body Site: Nose Collected Dt/Tm: 08/03/2023 11:23 Last Updated Dt/Tm: 08/03/2023 17:48 Lower Resp Tract Culture w/ Gram Smear?? Completed?? Source: Bronchial Alveolar Lavage Body Site: Lung Right Collected Dt/Tm: 08/04/2023 16:24 Last Updated Dt/Tm: 08/04/2023 16:26 ?SPECIMEN DESCRIPTION : BRONCHIAL ALVEOLAR LAVAGE LUNGRSPECIAL REQUESTS : NONEGRAM STAIN : 1+ TISSUE CELLS ?NO ORGANISMS SEENCULTURE : NO GROWTH 2 DAYSREPORT STATUS : FINAL 08/07/2023 ? 35 minutes spent on discharge * Palmira Ivey LPN: PERFORM Event Display: Patient Education/Instruction Authored Date: [id number] Inpatient Adult Discharge Instructions [address] [address] Name: NELIDA HOPKINS : 1990 Visit: 08/02/2023 01:22:00 Current Date: 08/08/2023 15:20 Account: [id number] Inpatient Adult Discharge Instructions We would like to thank you for allowing us to assist you with your healthcare needs. The following includes patient education materials and information regarding your injury/illness. Our entire staffstrives to provide an excellent experience for our patients and their families. PLEASE ENSURE YOU FOLLOW-UP PER THE INSTRUCTIONS BELOW! ?? YOUR OPINION IS IMPORTANT TO US! Please complete the survey you may receive by mail or email. Your feedback will be used to make improvements to the healthcare experiences of our patients and their families. Surveys are administered by [email or web address] ?? If further treatment with your primary care physician or another doctor is recommended, it is important for you to keep the appointment. Call your primary care physician or return to the Emergency Department immediately if your condition worsens, fails to improve, or new symptoms develop. If you need to find a doctor, you can call [facility] [employer] for a referral at [phone] or toll free at [phone] ([phone]) or log in to [email or web address].. ?? [facility], in keeping with [facility] guidance, no longer requires face masks for staff, patientsor visitors in most situations. Similiar to time spent indoors at other locations, there is the chance that you were exposed to repiratory viruses during your time with us (such as flu or COVID-19). If you develop symptoms concerning for a viral respiratory infection, please seek testing (and treatment if indicated) from your medical provider or home test kit. ?? You can view and manage your care through the patient portal or by using a health care jose of your choosing. [employer] is a website that allows you to securely view your medical information including your hospital discharge summary, office visit summaries, medications and follow-up visits. You can also request appointments, renew medications, and request access to your medical information using a health care jose of your choosing, or just ask a question. You can enroll at [email or web address] or register during your next office visit. You have been discharged from [facility], Patient Care Unit: D3[facility]. If you have any questions regarding these instructions after you leave, please call us and we will be happy to assist you. [facility] Your Care Team Attending Physician Rosario HANNON, Santo Ortega Consulting Providers Sebastian Goff MD; Santo Rajput MD; Tapan Kramer MD Discharging Providers Rosario HANNON, Santo Ortega Reason for Admission cough. Your Diagnosis Legionella infection AIDS Pneumonia Immune reconstitution inflammatory syndrome Opportunistic infection Tests Performed Below is a partial list of the tests performed during your hospitalization. You may have had other tests and procedures not included in this list. Please discuss all test results with your provider. BODY FLUID SMEAR REVIEW BUN Calcium Level CBC CBC w/ Differential Cell Count and Differential Fluid Comprehensive Metabolic Panel COVID-19 (Novel Coronavirus), Rapid PCR Creatinine Electrolytes Glucose Level HIV-1 RNA QUANTIFICATION, PLASMA Immunodeficiency Panel (TBNK) INR Lactate Level Magnesium Level Serum Quantitative Procalcitonin Level PTT Respiratory Pathogen PCR with COVID-19 Troponin T, High Sensitivity Urinalysis w/hold for Urine Culture CT Abd/Pelvis W/ IV Contrast Only CT Chest W/ IV Contrast Primary Care Provider Carol Ramirez MD Advance Directive Health Care Proxy on File Yes - Health Care Proxy Discharge Vitals Temperature: 98.2 DegF Height: 167 cm Pulse Rate: 83 bpm Weight: 81 kg Respiratory Rate: 18 br/min Body Mass Index:??29.04 kg/m2??High Systolic Blood Pressure: 122 mm Hg Body surface area: 1.94 Diastolic Blood Pressure: 76 mm Hg ?? Oxygen Saturation: 99 % ?? Studies Pending All tests and labs ordered during this hospital stay have been completed unless listed below. Please discuss all pending results with your provider listed above in these instructions. ?? AFB Culture w/ AFB Smear, Respiratory Add On Lab Order Blood Culture for AFB (Acid Fast Culture, Blood) Chlamydia pneumoniae PCR, non Blood Cytology Reports General () Fungal Culture, Respiratory GI Profile, Stool, PCR Histoplasmosis Antigen Legionella Antigen Urine (Urine Legionella Antigen) Legionella Species Culture Mycoplasma pneumoniae PCR Non Blood Ova and Parasite Exam Sputum Culture w/ Gram Smear Strep Pneumoniae Urinary Ag What to do next Instructions From Your Doctor Discharge Orders Scheduled Follow-Up Appointments Monday 11:50 AM EDT ?? With: Carol Ramirez MD Where: [place] [address]- Status: Pending Monday 9:50 AM EDT ?? With: Carol Ramirez MD Where: [place] [address]- Status: Pending You Need to Schedule the Following Appointments Follow Up with??Carol Ramirez MD When:??08/14/2023 01:00 PM EDT Where: ?? Discharge Medications NELIDA HOPKINS :1990 Visit Date:08/02/2023 Medications: Please continue your medications until treatment is completed or stopped by your provider. Medications not listed below should be discontinued. Discuss any questions related to medications with your provider. What How Much When Instructions Next Dose Changed Oxycodone (oxyCODONE 5 mg oral tablet) short course #20 dispensed on ?? 07/21/23 4:30 PM Changed Oxycodone (oxyCODONE 5 mg oral tablet) 1 tab(s) Oral 3 times a day as needed for as needed for pain Duration: 7 Days TAYLOR perez checked, appropriate Pls deliver to pt 2022 ?? as needed follow as prescribe Unchanged Acetaminophen (acetaminophen 500 mg oral tablet) 2 tab(s) Oral 3 times a day prn pain and fever ?? as needed follow as prescribe Unchanged Albuterol (Ventolin HFA 108 mcg/ inh inhalation aerosol with adapter) 2 puff(s) Inhalation 4 times a day as needed for Wheezing/Shortness of Breath as needed follow as prescribe Unchanged Atovaquone (atovaquone 750 mg/ 5 mL oral suspension) 10 Milliliter Oral Daily Duration: 30 Days with meals ?? 08/09/23 Unchanged Azithromycin (azithromycin 500 mg oral tablet) 1 tab(s) Oral Daily Duration: 30 Days Treatment of MAC. ??Pls deliver to patient 2022 ?? 08/09/23 Unchanged bictegravir/ emtricitabine/ tenofovir (Biktarvy oral tablet) 1 tab(s) Oral Daily Duration: 30 Days 08/09/23 Unchanged Ethambutol (ethambutol 400 mg oral tablet) 3 tab(s) Oral Daily Duration: 30 Days Treatment of MAC. ??Take 3 tablets together (total dose of 1,200mg) daily. ?? Pls deliver to pt for 2022 ?? 08/09/23 Test Results Below is a partial list of the most recent Laboratory test results done prior to this discharge. You may have had other tests and procedures not included in this list. Please discuss all test resultswith your provider. Est Creatinine Clearance - 83.96 mL/min (08/07/2023) BODY FLUID SMEAR REVIEW (08/04/2023) ???Body Fluid Smear Interpretation - OTHERS IN THIS CASE CONSTITUTE: BUN (08/07/2023) ???BUN - 8 mg/dL Calcium Level (08/04/2023) ???Calcium - 8.4 mg/dL CBC (08/03/2023) ???WBC - 4.7 k/mm3???RBC - 2.41 m/mm3???Hgb - 7.3 Gm/dL???Hct - 22.1 %???MCV - 91.7 femtoliters???MCH - 30.3 pg???MCHC - 33.0 g/dL???Platelet Count - 208 k/mm3???RDW-SD - 58.2 femtoliters???MPV - 12.1 femtoliters???Nucleated RBC (Automated) - 0.0 #/100 WBC'S???Abs. NRBC - 0.0 k/mm3 CBC w/ Differential (08/07/2023) ???WBC - 5.9 k/mm3???RBC - 2.80 m/mm3???Hgb - 8.4 Gm/dL???Hct - 26.5 %???MCV - 94.6 femtoliters???MCH - 30.0 pg???MCHC - 31.7 g/dL???Platelet Count - 367 k/mm3???RDW-SD - 61.6 femtoliters???MPV - 11.7 femtoliters???Nucleated RBC (Automated) - 0.0 #/100 WBC'S???Abs. NRBC - 0.0 k/mm3???Abs. Neut - 3.9 k/mm3???Abs. Lymph - 1.3 k/mm3???Abs. Toole - 0.5 k/mm3???Abs. Eo - 0.1 k/mm3???Abs. Baso - 0.0 k/mm3???Neut % - 66.1 %???Lymph % - 21.5 %???Toole % - 9.0 %???Eos % - 1.5 %???Baso % - 0.7 %???Imm Gran- 1.2 %???Abs. Imm Gran - 0.1 k/mm3 Cell Count and Differential Fluid (08/04/2023) ???Color, Fluid - COLORLESS???Appearance, Fluid - CLOUDY???WBC, Fluid - 64 per Cubic Millimeter???RBC, Fluid - 49 per Cubic Millimeter???Seg, Fluid - 22 %???Lymph, Fluid - 22 %???Toole, Fluid - 2 %???Other, Fluid - 54 % Comprehensive Metabolic Panel (08/01/2023) ???Sodium - 132 mmol/L???Potassium - 3.6 mmol/L???Chloride - 99 mmol/L???Bicarbonate Level - 20 mmol/L???Anion Gap - 13???Glucose Level - 97 mg/dL???BUN - 6 mg/dL???Creatinine-Blood - 0.7 mg/dL???Estimated GFR Creatinine - 111 ML/MIN/1.73 M2???Calcium - 8.0 mg/dL???Protein, Total - 6.3 Gm/dL???Album in - 3.0 Gm/dL???AG Ratio - 0.9???Alkaline Phosphatase - 163 units/L???AST (SGOT) - 18 units/L???ALT (SGPT) - 13 units/L???Bilirubin, Total - 0.8 mg/dL COVID-19 (Novel Coronavirus), Rapid PCR (08/01/2023) ???COVID-19 by RT-PCR - NEGATIVE Creatinine (08/07/2023) ???Creatinine-Blood - 0.9 mg/dL???Estimated GFR Creatinine - 94 ML/MIN/1.73 M2 Electrolytes (08/07/2023) ???Sodium - 134 mmol/L???Potassium - 4.3 mmol/L???Chloride - 101 mmol/L???Bicarbonate Level - 22 mmol/L???Anion Gap - 11 Glucose Level (08/07/2023) ???Glucose Level - 90 mg/dL HIV-1 RNA QUANTIFICATION, PLASMA (08/01/2023) ???HIV RNA Ultrasensitive - 317 CP/ML???HIV Quant Log Result - 2.50 LOGCP/ML Immunodeficiency Panel (TBNK) (08/01/2023) ???Cd4/Cd8 Ratio - 0.31???CD45 Lymph Abs Count, Flow - 1039 cells/mm3???% CD4 (Hollis T Cells) - 19%???Abs CD4 (Hollis T Cells) - 195 cells/mm3???% CD8 (Suppressor T Cells) - 61 %???Abs CD8 (Suppressor T Cells) - 634 cells/mm3???% CD3 (T Cells) - 86 %???Abs CD3 (T Cells) - 899 cells/mm3???% CD19 (B Cells) - 5 %???Abs CD19 (B Cells) - 54 cells/mm3???% CD16+CD56 (NK Cells) - 8 %???Abs CD16+CD56 (NK Cells) - 80 cells/mm3 INR (08/02/2023) ???INR - 1.1???Protime (PT) - 11.4 seconds Lactate Level (08/01/2023) ???Lactate - 1.5 mmol/L Magnesium Level (08/07/2023) ???Magnesium - 1.8 mg/dL Serum Quantitative (08/01/2023) ? ?Blood - <1 mIU/mL Procalcitonin Level (08/02/2023) ???Procalcitonin - 0.95 ng/mL PTT (08/02/2023) ???APTT - 29.8 seconds Respiratory Pathogen PCR with COVID-19 (08/03/2023) ???Adenovirus by PCR - NEGATIVE???Coronavirus 229E by PCR (not COVID-19) - NEGATIVE???Coronavirus HKU1 by PCR (not COVID-19) - NEGATIVE???Coronavirus NL63 by PCR (not COVID-19) - NEGATIVE???Coronavirus OC43 by PCR (not COVID-19) - NEGATIVE???Human Metapneumovirus by PCR - NEGATIVE???Rhinovirus/Enterovirus by PCR - NEGATIVE???Influenza A by PCR - NEGATIVE???Influenza B by PCR - NEGATIVE???Parainfluenza 1 by PCR - NEGATIVE???Parainfluenza 2 by PCR - NEGATIVE???Parainfluenza 3 by PCR - NEGATIVE???Parainfluenza 4 by PCR - NEGATIVE???RSV by PCR - NEGATIVE???Bordetella Pertussis by PCR - NEGATIVE??? Chlamydophila Pneumoniae by PCR - NEGATIVE???Mycoplasma Pneumoniae by PCR - NEGATIVE???COVID-19 (SARS-CoV-2) by PCR - NEGATIVE???Bordetella Parapertussis by PCR - NEGATIVE Troponin T, High Sensitivity (08/02/2023) ???High Sensitivity Troponin (HSTnT) - 9 ng/L Urinalysis w/hold for Urine Culture (08/01/2023) ? ?Appear/Color, Urine - LIGHT YELLOW? ?Specific [place], Urine - <1.005? ?pH, Urine - 7.0? ?Albumin, Urine - NEGATIVE???Glucose, Urine - NEGATIVE???Ketones, Urine - NEGATIVE???Bilirubin, Urine - NEGATIVE???Hemoglobin, Urine - 2+???Nitrite, Urine - NEGATIVE???Leukocyte, Urine - NEGATIVE???Urobilinogen - NORMAL? ?WBC's, Urine - <1 /HPF? ?RBC's, Urine - <1 /HPF? ?Bacteria - SLIGHT? ?Squamous Epith - 1 /HPF???Mucus - SLIGHT???Hold Urine Culture - Testing available 48 hours from time of collection. Allergies (NKA means No Known Allergies) Bactrim??(Dairy food intake) dapsone??(09/2019 developed rash on dapsone/trimethoprim) doxycycline??(itchy rash) rifabutin??(severe arthralgias) Problems Active Problems??(10) Acquired immune deficiency syndrome (AIDS) with CD4 108 on 09/27/16?? Anal fissure?? Axillary hidradenitis suppurativa, chronic and severe. not in groin area.?? [facility] early breastfeeding care specialist, Liane Chua, ?? CAP (community acquired pneumonia)?? Depression?? History of laparoscopic appendectomy, [facility], dr combs 01/21/2020?? Marijuana use?? 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 Uterine scar x1?? Education Materials Below is the list of Educational Leaflet Providered with your Discharge Instructions. Valuables and Belongings I fully understand and agree that [facility] accepts no responsibility for all my personal property including clothing, toilet articles, radios, jewelry, dentures, hearing aids, rings, money, or any other property that is in my possession or is brought to me after admission. I understand certain valuables may be placed in a hospital safe for a short period of time. I understand that the hospital is not liable for loss or damage due to accident, fire, or other natural occurrence while said property is in the safe. I accept full responsibility for any personal property that I keep with me, and will not hold the hospital responsible in case of loss or disappearance. I acknowledge that i have been encouraged to send valuables and belongings home. ?? Date for Pt to Sign Valuables/Belongings: 08/04/23 13:36:00 ?? Valuables & Belongings ?? Clothes Electronic devices Jewelry Monetary Items Personal devices Miscellaneous Medications (Valuables) Valuables at Bedside Pants, Shirt, Shoes, Undergarments Cell phone Rings Money, Purse ?? Other: blanket ?? Valuables Sent Home ? Valuables Sent to Security ? Other Discharge Information ? Pulmonary Rehab Status?? Pulmonary Rehab Discharge Status?? Respiratory Rate: 18 br/min ? Common Emergency Awareness Tips IS IT A STROKE? Act FAST and Check for these signs: FACE Does the face look uneven? ARM Does one arm drift down? SPEECH Does their speech sound strange? TIME Call at any sign of stroke ?? Heart Attack Signs Chest discomfort: Most heart attacks involve discomfort in the center of the chest and lasts more than a few minutes, or goes away and comes back. It can feel like uncomfortable pressure, squeezing, fullness or pain. Discomfort in upper body: Symptoms can include pain or discomfort in one or both arms, back, neck, jaw or stomach. Shortness of breath: With or without discomfort. Other signs: Breaking out in a cold sweat, nausea, or lightheaded. Remember, MINUTES DO MATTER. If you experience any of these heart attack warning signs, call to get immediate medical attention! ?? Smoking can increase your chances of developing chronic health problems and can cause harmful effects to other family members in your house. If you smoke, you are strongly encouraged to quit. Please call [facility] [employer] [facility] at [phone] or [phone] ([phone]) or log in to [email or web address] for referrals to smoking cessation programs. ?? 725 Suicide & Crisis Lifeline is available 12/06 if you or someone you know needs to find a reason to keep living. By calling 168 you'll be connected to a skilled, trained counselor at a crisis center in your area. INPATIENT DISCHARGE INSTRUCTIONS SIGNATURE NELIDA HOLT Location:[facility] Registration Date and Time:08/02/2023 01:22 EDT Primary Care Physician: Carol Ramirez MD, Attending Physician: Santo Ponce MD, NELIDA TAYLOR, have received the above patient education materials/instructions and have verbalized understanding. If ambulance or transport services are being used I further acknowledge being given a choice of service. ?? If you need to contact me, please call me at this number: . Patient/Junior Project Manager Name: Patient/Junior Project Manager Signature: Relationship to Patient: Witness Name/Signature: Date: Patient Care team information Care Team Personnel Name: Kyler RNJyoti Position: S RN Member Role: Primary Care Nurse Name: Jocelyn Shirley RN Position: S RN Member Role: Primary Care Nurse Name: Rocio Marcial RN Position: [facility] RN Member Role: Primary Care Nurse Name: Dionne Morton RN Position: S RN Member Role: Primary Care Nurse Name: Candie Bustamante RN Position: S RN Member Role: Primary Care Nurse Name: La Hodges RN Position: S RN Member Role: Primary Care Nurse Name: Thais Ortiz RN Position: [facility] RN Member Role: Primary Care Nurse Name: Yulissa Gonzales RN Position: [facility] RN Member Role: Primary Care Nurse Address: Address: [address] [place] [phone]- Name: Heather Youngblood RN Position: [facility] SN RN Member Role: Primary Care Nurse Name: Palmira Ivey LPN Position: [facility] RN Member Role: Primary Care Nurse Name: Carol Ramirez MD Position: [facility] Physician - Primary Care Member Role: PCP Address: Address: [address] [place] [address]- Name: *Rebel GOYAL Attending Position: [facility] ED Medicine MD Name: Efrain Correia Position: [facility] ED TA [facility] Member Role: Blackjack Pit Boss Name: Candie Pickering LPN Position: [facility] ED RN W/OE and Tasks Member Role: Patient Care Provider Name: Abraham Ya LPN Position: [facility] ED RN W/OE and Tasks Member Role: Patient Care Provider Name: Julio Cesar Connolly Position: [facility] ED OA Charge Member Role: ED Associate Care Team Related Persons Name: AMANDA ENGLISH Address: [address] [address] Name: BORIS SLATER
--- OUTSIDE RECORDS SUMMARY | 2024-06-27 11:51 | XMS_ITS | Continuity of Care Document ---
Author Organization [facility] Address [address] [place] [address]- Care Team Providers Care Manager Epic Name Role Phone Carol Ramirez MD Primary Care Physician Encounter [facility] [place] Date(s): 07/21/23 - 08/20/23 [facility] [address] [place] [id number] Allergies, Adverse Reactions, Alerts Substance Reaction Severity [...] opioid drug. Start Date: 07/28/23 Status: Ordered atovaquone 750 mg/5 mL oral suspension 10 mL = 1,500 mg, By Mouth, Daily, for 30 days, with meals, # 300 mL, 11 Refills, Acute 07/19/24 15:15:00 EDT, 07/25/23 15:15:00 EDT, Suspension, [facility], Partial fill upon patient request if the prescription is for a schedule II o... Start Date: 07/25/23 Stop Date: 07/19/24 Status: Ordered azithromycin 500 mg oral tablet 1 tablet = 500 mg, By Mouth, Daily, for 30 days, Treatment of MAC. Pls deliver to patient 08/09/2023, # 30 tablet, 2 Refills, Acute 11/06/23 14:13:00 EST, 08/08/23 14:13:00 EDT, Tablet, [facility], Partial fill upon patient request if... Start Date: 08/08/23 Stop Date: 11/06/23 Status: Ordered Biktarvy oral tablet 1 tablet, By Mouth, Daily, # 30 tablet, 11 Refills, Maintenance, 07/25/23 15:15:00 EDT, Tablet, [facility], Partial fill upon patient request if the prescription is for a schedule IIopioid drug., 1 tablet By Mouth Daily,x30 days, 165... Start Date: 07/25/23 Stop Date: 07/19/24 Status: Ordered dronabinol 2.5 mg oral capsule 1 capsule = 2.5 mg, By Mouth, 2 times a day, 1 hour before lunch and dinner Appetite stimulant., # 60 capsule, 1 Refills, Maintenance, 08/14/23 14:47:00 EDT, Capsule, [facility], Partial fill upon patient request if the prescription... Start Date: 08/14/23 Status: Ordered ethambutol 400 mg oral tablet 3 tablet = 1,200 mg, By Mouth, Daily, for 30 days, Treatment of MAC. Take 3 tablets together (totaldose of 1,200mg) daily. Pls deliver to pt for 08/09/2023, # 90 tablet, 2 Refills, Acute 11/06/23 14:14:00 EST, 08/08/23 14:14:00 EDT, Tablet, [facility]... Start Date: 08/08/23 Stop Date: 11/06/23 Status: Ordered naproxen 500 mg oral delayed release tablet 1 tablet = 500 mg, By Mouth, 2 times a day, As needed for fever and muscle aches, # 60 tablet, 3 Refills, Maintenance, 08/14/23 13:22:00 EDT, EC Tablet, [facility], Partial fill uponpatient request if the prescription is for a schedu... Start Date: 08/14/23 Status: Ordered oxyCODONE 5 mg oral tablet 5 mg, 1, tablet, By Mouth, 3 times a day, PRN, for 7 days, Fill on/after 08/15/2023 TAYLOR perez checked, appropriate, # 21 tablet, Refills 0, Tot. Refills 0, Acute 08/21/23 13:44:00 EDT, as needed for pain, 08/14/23 13:44:00 EDT, Route to Pharmacy Electron... 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 Sex Patient Care team information Care Team Personnel Name: Jyoti Chávez RN Position: [facility] RN Member Role: Primary Care Nurse Name: Jocelyn Shirley RN Position: S RN Member Role: Primary Care Nurse Name: Rocio Marcial RN Position: [facility] SN RN Member Role: Primary Care Nurse Name: Dionne Morton RN Position: S RN Member Role: Primary Care Nurse Name: Candie Bustamante RN Position: S RN Member Role: Primary Care Nurse Name: La Hodges RN Position: S RN Member Role: Primary Care Nurse Name: Thais Ortiz RN Position: [facility] RN Member Role: Primary Care Nurse Name: Yulissa Gonzales RN Position: [facility] RN Member Role: Primary Care Nurse Address: Address: [address] [place] [address]- Name: Heather Youngblood RN Position: [facility] SN RN Member Role: Primary Care Nurse Name: Palmira Ivey LPN Position: [facility] RN Member Role: Primary Care Nurse Name: Carol Ramirez MD Position: [facility] Physician - Primary Care Member Role: PCP Address: Address: [address] [place] [address]- Care Team Related Persons Name: AMANDA ENGLISH Address: home [address] [place] [address] Name: BORIS SLATER
--- OUTSIDE RECORDS SUMMARY | 2024-06-27 11:51 | XMS_ITS | Continuity of Care Document ---
Author Organization [facility] Address [address] [place] [address]- Care Team Providers Care Cyber Incident Responder Name Role Phone Carol Ramirez MD Primary Care Physician Encounter [facility] [place] Date(s): 07/28/23 - 09/06/[address] [id number] Attending Physician: Carol Ramirez MD Admitting Physician: Carol Ramirez MD Referring Physician: Carol Ramirez MD Allergies, Adverse Reactions, Alerts Substance Reaction [...] 07/19/24 15:15:00 EDT, 07/25/23 15:15:00 EDT, Suspension, [facility], Partial fill upon patient request if the prescription is for a schedule II o... Start Date: 07/25/23 Stop Date: 07/19/24 Status: Ordered azithromycin 500 mg oral tablet 1 tablet = 500 mg, By Mouth, Daily, for 30 days, Treatment of MAC. Pls deliver to patient 08/09/2023, # 30 tablet, 2 Refills, Acute 11/06/23 14:13:00 EST, 08/08/23 14:13:00 EDT, Tablet, [facility], Partial fill upon patient request if... Start Date: 08/08/23 Stop Date: 11/06/23 Status: Ordered Biktarvy oral tablet 1 tablet, By Mouth, Daily, # 30 tablet, 11 Refills, Maintenance, 07/25/23 15:15:00 EDT, Tablet, [facility], Partial fill upon patient [...] Refills, Maintenance, 08/14/23 13:22:00 EDT, EC Tablet, [facility], Partial fill uponpatient request if the prescription is for a schedu... Start Date: 08/14/23 Status: Ordered oxyCODONE 5 mg oral tablet 5 mg, 1, tablet, By Mouth, 3 times a day, PRN, for 7 days, [place] ana checked, appropriate, # 21 tablet, Refills 0, Tot. Refills 0, Acute 09/12/23 16:17:00 EDT, as needed for pain, 09/05/23 16:17:00 EDT,Route to Pharmacy Electronically, [facility] Start Date: 09/05/23 Stop Date: 09/12/23 Status: Ordered Ventolin HFA 108 mcg/inh inhalation aerosol with adapter 2 puffs, Inhalation, 4 times a day, PRN Wheezing/Shortness of Breath, # 1 each, 11 Refills, Maintenance, 04/26/23 15:10:00 EDT, Aerosol, [facility], Partial fill upon patient requestif the prescription is for a schedule II opioid rachelle... Start Date: 04/26/23 Status: Ordered Problem List Condition Confirmation Course Effective Dates Status H ealth Status Informant Acquired immune deficiency syndrome (AIDS) with CD4 108 on 09/27/16 Confirmed Active Anal fissure Confirmed Active Axillary hidradenitis suppurativa, chronic and severe. not in groin area. 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 Sex Patient Care team information Care Team Personnel Name: Jyoti Chávez RN Position: S RN Member Role: Primary Care Nurse Name: Jocelyn Shirley RN Position: S RN Member Role: Primary Care Nurse Name: Rocio Marcial RN Position: [facility] SN RN Member Role: Primary Care Nurse Name: Dionne Morton RN Position: S RN Member Role: Primary Care Nurse Name: Candie Bustamante RN Position: S RN Member Role: Primary Care Nurse Name: La Hodges RN Position: S RN Member Role: Primary Care Nurse Name: Thais Ortiz RN Position: S RN Member Role: Primary Care Nurse Name: Yulissa Gonzales RN Position: S RN Member Role: Primary Care Nurse Address: Address: [address] [place] [address] Name: Heather Youngblood RN Position: [facility] SN RN Member Role: Primary Care Nurse Name: Palmira Ivey LPN Position: [facility] RN Member Role: Primary Care Nurse Name: Carol Ramirez MD Position: [facility] Physician - Primary Care Member Role: PCP Address: Address: [address] [place] [address]- Care Team Related Persons Name: AMANDA ENGLISH Address: home [address] [place] [id number] Name: BORIS SLATER
--- OUTSIDE RECORDS SUMMARY | 2024-06-27 11:51 | XMS_ITS | Continuity of Care Document ---
Author Organization [facility] Address [address] [place] [address]- Care Team Providers Care Digital Associate Media Director Name Role Phone Carol Ramirez MD Primary Care Physician Encounter [facility] [place] Date(s): 10/31/23 - 11/30/[address] [address]- Allergies, Adverse Reactions, Alerts Substance Reaction Severity [...] 07/19/24 15:15:00 EDT, 07/25/23 15:15:00 EDT, Suspension, [facility], Partial fill upon patient request if the prescription is for a schedule II o... Start Date: 07/25/23 Stop Date: 07/19/24 Status: Ordered azithromycin 500 mg oral tablet 1 tablet, By Mouth, Daily, # 30 tablet, 2 Refills, Maintenance, 10/31/23 22:32:00 EST, [facility], 167, cm, 08/22/23 13:25:00 EDT, Height, 81, kg, 08/02/23 18:16:00 EDT, Dry Weight Start Date: 10/31/23 Status: Ordered Biktarvy oral tablet 1 tablet, By Mouth, Daily, # 30 tablet, 11 Refills, Maintenance, 07/25/23 15:15:00 EDT, Tablet, [facility], Partial fill upon patient request if the prescription is for a schedule IIopioid drug., 1 tablet By Mouth Daily,x30 days, 165... Start Date: 07/25/23 Stop Date: 07/19/24 Status: Ordered ethambutol 400 mg oral tablet 3 tablet, By Mouth, Daily, # 90 tablet, 2 Refills, Maintenance, 10/31/23 22:32:00 EST, [facility], 167, cm, 08/22/23 13:25:00 EDT, Height, 81, kg, 08/02/23 18:16:00 EDT, Dry Weight Start Date: 10/31/23 Status: Ordered ferrous sulfate 325 mg oral enteric coated tablet 325 mg, 1, tablet, By Mouth, Daily, Iron supplement. Do NOT take at same time as Biktarvy., # 90 tablet, Refills 3, Tot. Refills 3, Maintenance, 10/20/23 13:47:00 EST, Route to Pharmacy Electronically, [facility], Partial fill upon pa... Start Date: 10/20/23 Status: Ordered mometasone 100 mcg/inh inhalation aerosol 2 puffs, Inhalation, 2 times a day, rinse mouth and throat after use New inhaler for asthma. Use 2xper day. In addition, continue albuterol as needed for wheezing., # 13 Gm, 5 Refills, Maintenance, 10/05/23 13:07:00 EST, Aerosol, [facility]... Start Date: 10/05/23 Status: Ordered naproxen 500 mg oral delayed release tablet 1 tablet = 500 mg, By Mouth, 2 times a day, As needed for fever and muscle aches, # 60 tablet, 3 Refills, Maintenance, 08/14/23 13:22:00 EDT, EC Tablet, [facility], Partial fill uponpatient request if the prescription is for a schedu... Start Date: 08/14/23 Status: Ordered Ventolin HFA 108 mcg/inh inhalation aerosol with adapter 2 puffs, Inhalation, 4 times a day, PRN Wheezing/Shortness of Breath, # 1 each, 11 Refills, Maintenance, 04/26/23 15:10:00 EDT, Aerosol, [facility], Partial fill upon [...] Depression Confirmed Active History of laparoscopic appendectomy, [facility], dr combs 01/21/2020 Confirmed Active [facility] youth care specialist, Liane Chua, Confirmed Active Pulmonary [...] Care Nurse Name: Rocio Marcial RN Position: [facility] SN RN [...] Role: Primary Care Nurse Address: Address: [address] [place] [address] Name: Heather Youngblood RN Position: [facility] SN RN Member Role: Primary Care Nurse Name: Palmira Ivey LPN Position: S RN Member Role: Primary Care Nurse Name: Carol Ramirez MD Position: [facility] Physician - Primary Care Member Role: PCP Address: Address: [address] [place] [address]- Care Team Related Persons Name: AMANDA ENGLISH Address: [place] [address] Name: BORIS SLATER
--- OUTSIDE RECORDS SUMMARY | 2024-06-27 11:52 | XMS_ITS | Continuity of Care Document ---
Author Organization [facility] Address [address] [place] [address]- Care Team Providers Care Seaman Officer Name Role Phone Carol Ramirez MD Primary Care Physician Encounter [facility] [place] Date(s): 03/05/24 - 04/04/[address] [address]- Allergies, Adverse Reactions, Alerts Substance Reaction Severity [...] 07/19/24 15:15:00 EDT, 07/25/23 15:15:00 EDT, Suspension, [facility], Partial fill upon patient request if the prescription is for a schedule II o... Start Date: 07/25/23 Stop Date: 07/19/24 Status: Ordered azithromycin 500 mg oral tablet 1 tablet, By Mouth, Daily, # 30 tablet, 2 Refills, Maintenance, 10/31/23 22:32:00 EST, [facility], 167, cm, 08/22/23 13:25:00 EDT, Height, 81, kg, 08/02/23 18:16:00 EDT, Dry Weight Start Date: 10/31/23 Status: Ordered Biktarvy oral tablet 1 tablet, By Mouth, Daily, # 30 tablet, 11 Refills, Maintenance, 07/25/23 15:15:00 EDT, Tablet, [facility], Partial fill upon patient request if the prescription is for a schedule IIopioid drug., 1 tablet By Mouth Daily,x30 days, 165... Start Date: 07/25/23 Stop Date: 07/19/24 Status: Ordered dronabinol 2.5 mg oral capsule 1 capsule = 2.5 mg, By Mouth, 2 times a day, 1 hour before lunch and dinner Appetite stimulant., # 60 capsule, 0 Refills, Maintenance, 12/18/23 13:28:00 EST, Capsule, [facility], Partial fill upon patient request if the prescription... Start Date: 12/18/23 Status: Ordered ethambutol 400 mg oral tablet 3 tablet, By Mouth, Daily, # 90 tablet, 2 Refills, Maintenance, 10/31/23 22:32:00 EST, [facility], 167, cm, 08/22/23 13:25:00 EDT, Height, 81, kg, 08/02/23 18:16:00 EDT, Dry Weight Start Date: 10/31/23 Status: Ordered ferrous sulfate 325 mg oral enteric coated tablet 325 mg, 1, tablet, By Mouth, Daily, Iron supplement. Do NOT take at same time as Biktarvy., # 90 tablet, Refills 3, Tot. Refills 3, Maintenance, 10/20/23 13:47:00 EST, Route to Pharmacy Electronically, [facility], Partial fill upon pa... Start Date: 10/20/23 Status: Ordered mometasone 100 mcg/inh inhalation aerosol 2 puffs, Inhalation, 2 times a day, rinse mouth and throat after use New inhaler for asthma. Use 2xper day. In addition, continue albuterol as needed for wheezing., # 13 Gm, 5 Refills, Maintenance, 10/05/23 13:07:00 EST, Aerosol, [facility] Start Date: 10/05/23 Status: Ordered naproxen 500 mg oral delayed release tablet 1 tablet, By Mouth, 2 times a day, PRN NEEDED FOR FEVER/ MUSCLE ACHES, # 60 tablet, 3 Refills, Maintenance, 01/29/24 17:11:00 EDT, [facility], 167, cm, 12/25/23 13:04:00 EST, Height, 81, kg, 08/02/23 18:16:00 EDT, Dry Weight Start Date: 01/29/24 Status: Ordered Ventolin HFA 108 mcg/inh inhalation aerosol with adapter 2 puffs, Inhalation, 4 times a day, PRN NEEDED, WHEEZING/ SHORTNESS OF BREATH., # 8.5 Gm, 0 Refills, Maintenance, 01/29/24 8:41:00 EDT, [facility], 167, cm, 12/25/23 13:04:00 EST,Height, 81, kg, 08/02/23 18:16:00 EDT, Dry Weight Start Date: 01/29/24 Status: Ordered Problem List Condition Confirmation Course Effective Dates Status H ealth Status Informant Acquired immune deficiency syndrome (AIDS) with CD4 108 on 09/27/16 Confirmed Active Anal fissure Confirmed Active Axillary hidradenitis suppurativa, chronic and severe. not in groin area. Confirmed Active Depression Confirmed Active History of laparoscopic appendectomy, [facility], dr combs 01/21/2020 Confirmed Active Obese class I Confirmed Active [facility] senior care provider, Liane Chua, Confirmed Active Pulmonary infection due [...] Care Nurse Name: Rocio Marcial RN Position: [facility] RN Member Role: Primary Care Nurse Name: Dionne Morton RN Position: [facility] RN Member Role: Primary Care Nurse Name: Renzo Hernandez RN Position: [facility] RN Supv Member Role: Primary Care Nurse Name: Candie Bustamante RN Position: [facility] RN Member Role: Primary Care Nurse Name: La Hodges RN Position: [facility] RN Member Role: Primary Care Nurse Name: Thais Ortiz RN Position: [facility] RN Member Role: Primary Care Nurse Name: Heather Youngblood RN Position: [facility] SN RN Member Role: Primary Care Nurse Name: Palmira Ivey LPN Position: [facility] RN Member Role: Primary Care Nurse Name: Carol Ramirez MD Position: [facility] Physician - Primary Care Member Role: PCP Address: Address: [address] [place] [address]- Care Team Related Persons Name: TAMEKA AMANDA Address: [address] [address] Name: BORIS SLATER
--- OUTSIDE RECORDS SUMMARY | 2024-06-27 11:52 | XMS_ITS | Continuity of Care Document ---
Author Organization [facility] Address [address] [place] [address]- Care Team Providers Care Aed Trainer Name Role Phone Carol Ramirez MD Primary Care Physician Encounter [facility] [place] Date(s): 09/07/23 - 10/07/[address] [address]- Allergies, Adverse Reactions, Alerts Substance Reaction Severity [...] 07/19/24 15:15:00 EDT, 07/25/23 15:15:00 EDT, Suspension, [facility], Partial fill upon patient request if the prescription is for a schedule II o... Start Date: 07/25/23 Stop Date: 07/19/24 Status: Ordered azithromycin 500 mg oral tablet 1 tablet = 500 mg, By Mouth, Daily, for 30 days, Treatment of MAC. Pls deliver to patient 08/09/2023, # 30 tablet, 2 Refills, Acute 11/06/23 14:13:00 EST, 08/08/23 14:13:00 EDT, Tablet, [facility], Partial fill upon patient request if... Start Date: 08/08/23 Stop Date: 11/06/23 Status: Ordered Biktarvy oral tablet 1 tablet, By Mouth, Daily, # 30 tablet, 11 Refills, Maintenance, 07/25/23 15:15:00 EDT, Tablet, [facility], Partial fill upon [...] Date: 08/08/23 Stop Date: 11/06/23 Status: Ordered mometasone 100 mcg/inh inhalation aerosol 2 puffs, Inhalation, 2 times a day, rinse mouth and throat after use New inhaler for asthma. Use 2xper day. In addition, continue albuterol as needed for wheezing., # 13 Gm, 5 Refills, Maintenance, 10/05/23 13:07:00 EST, Aerosol, [facility] Start Date: 10/05/23 Status: Ordered naproxen 500 mg oral delayed release tablet 1 tablet = 500 mg, By Mouth, 2 times a day, As needed for fever and muscle aches, # 60 tablet, 3 Refills, Maintenance, 08/14/23 13:22:00 EDT, EC Tablet, [facility], Partial fill uponpatient request if the prescription is for a schedu... 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 Sex Patient Care team information Care Team Personnel Name: Jyoti Chávez RN Position: [facility] RN Member Role: Primary Care Nurse Name: Jocelyn Shirley RN Position: [facility] RN Member Role: Primary Care Nurse Name: Rocio Marcial RN Position: [facility] SN RN Member Role: Primary Care Nurse Name: Dionne Morton RN Position: [facility] RN Member Role: Primary Care Nurse Name: Candie Bustamante RN Position: [facility] RN Member Role: Primary Care Nurse Name: La Hodges RN Position: S RN Member Role: Primary Care Nurse Name: Thais Ortiz RN Position: [facility] RN Member Role: Primary Care Nurse Name: Yulissa Gonzales RN Position: S RN Member Role: Primary Care Nurse Address: Address: [address] [place] [address] Name: Heather Youngblood RN Position: [facility] SN RN Member Role: Primary Care Nurse Name: Palmira Ivey LPN Position: S RN Member Role: Primary Care Nurse Name: Carol Ramirez MD Position: [facility] Physician - Primary Care Member Role: PCP Address: Address: [address] [place] [address]- Care Team Related Persons Name: AMANDA ENGLISH Address: home [address] [place] [address] Name: BORIS SLATER
--- OUTSIDE RECORDS SUMMARY | 2024-06-27 11:52 | XMS_ITS | Continuity of Care Document ---
Author Organization [facility] Address [address] [place] [address]- Care Team Providers Care Corporate Real Estate Manager Name Role Phone Carol Ramirez MD Primary Care Physician [place] [facility] [place] - 11/15/[address] [address]- Attending Physician: Carol Ramirez MD Admitting Physician: Carol Ramirez MD Allergies, Adverse Reactions, [...] tablet, 2 Refills, Maintenance, 10/31/23 22:32:00 EST, [facility], 167, cm, 08/22/23 13:25:00 EDT, Height, 81, kg, 08/02/23 18:16:00 EDT, Dry Weight Start Date: 10/31/23 Status: Ordered Biktarvy oral tablet 1 tablet, By Mouth, Daily, # 30 tablet, 11 Refills, Maintenance, 07/25/23 15:15:00 EDT, Tablet, [facility], Partial fill upon patient request if the prescription is for a schedule IIopioid drug., 1 tablet By Mouth Daily,x30 days, 165... Start Date: 07/25/23 Stop Date: 07/19/24 Status: Ordered ethambutol 400 mg oral tablet 3 tablet, By Mouth, Daily, # 90 tablet, 2 Refills, Maintenance, 10/31/23 22:32:00 EST, [facility], 167, cm, 08/22/23 13:25:00 EDT, Height, 81, kg, 08/02/23 18:16:00 EDT, Dry Weight Start Date: 10/31/23 Status: Ordered ferrous sulfate 325 mg oral enteric coated tablet 325 mg, 1, tablet, By Mouth, Daily, Iron supplement. Do NOT take at same time as Biktarvy., # 90 tablet, Refills 3, Tot. Refills 3, Maintenance, 10/20/23 13:47:00 EST, Route to Pharmacy Electronically, [facility], Partial fill upon pa... Start Date: 10/20/23 Status: Ordered mometasone 100 mcg/inh inhalation aerosol 2 puffs, Inhalation, 2 times a day, rinse mouth and throat after use New inhaler for asthma. Use 2xper day. In addition, continue albuterol as needed for wheezing., # 13 Gm, 5 Refills, Maintenance, 10/05/23 13:07:00 EST, Aerosol, [facility]... 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 Sex Patient Care team information Care Team Personnel Name: Jyoti Chávez RN Position: [facility] RN Member Role: Primary Care Nurse Name: Jocelyn Shirley RN Position: [facility] RN Member Role: Primary Care Nurse Name: Rocio Marcial RN Position: [facility] RN [...] Member Role: Primary Care Nurse Address: Address: [address] [place] [address]- Name: Heather Youngblood RN Position: [facility] SN RN Member Role: Primary Care Nurse Name: Palmira Ivey LPN Position: [facility] RN Member Role: Primary Care Nurse Name: Carol Ramirez MD Position: [facility] Physician - Primary Care Member Role: PCP Address: Address: [address] [place] [address]- Care Team Related Persons Name: AMANDA ENGLISH Address: home [address] [place] [id number] Name: BORIS SLATER
--- OUTSIDE RECORDS SUMMARY | 2024-06-27 11:53 | XMS_ITS | Continuity of Care Document ---
Author Organization [facility] Address [address] [place] [address]- Care Team Providers Care License Issuer Name Role Phone Ashley HANNON, Carol Primary Care Physician Encounter [facility] Date(s): 12/29/23 - 01/28/[address] [id number] Allergies, Adverse Reactions, Alerts Substance Reaction [...] 07/19/24 15:15:00 EDT, 07/25/23 15:15:00 EDT, Suspension, [facility], Partial fill upon patient request if the prescription is for a schedule II o... Start Date: 07/25/23 Stop Date: 07/19/24 Status: Ordered azithromycin 500 mg oral tablet 1 tablet, By Mouth, Daily, # 30 tablet, 2 Refills, Maintenance, 10/31/23 22:32:00 EST, [facility], 167, cm, 08/22/23 13:25:00 EDT, Height, 81, kg, 08/02/23 18:16:00 EDT, Dry Weight Start Date: 10/31/23 Status: Ordered Biktarvy oral tablet 1 tablet, By Mouth, Daily, # 30 tablet, 11 Refills, Maintenance, 07/25/23 15:15:00 EDT, Tablet, [facility], Partial fill upon patient request [...] 0 Refills, Maintenance, 12/18/23 13:28:00 EST, Capsule, [facility], Partial fill upon patient request if the prescription... Start Date: 12/18/23 Status: Ordered ethambutol 400 mg oral tablet 3 tablet, By Mouth, Daily, # 90 tablet, 2 Refills, Maintenance, 10/31/23 22:32:00 EST, [facility], 167, cm, 08/22/23 13:25:00 EDT, Height, 81, kg, 08/02/23 18:16:00 EDT, Dry Weight Start Date: 10/31/23 Status: Ordered ferrous sulfate 325 mg oral enteric coated tablet 325 mg, 1, tablet, By Mouth, Daily, Iron supplement. Do NOT take at same time as Biktarvy., # 90 tablet, Refills 3, Tot. Refills 3, Maintenance, 10/20/23 13:47:00 EST, Route to Pharmacy Electronically, [facility], Partial fill upon pa... Start Date: 10/20/23 Status: Ordered mometasone 100 mcg/inh inhalation aerosol 2 puffs, Inhalation, 2 times a day, rinse mouth and throat after use New inhaler for asthma. Use 2xper day. In addition, continue albuterol as needed for wheezing., # 13 Gm, 5 Refills, Maintenance, 10/05/23 13:07:00 EST, Aerosol, [facility] Start Date: 10/05/23 Status: Ordered naproxen 500 mg oral delayed release tablet 1 tablet = 500 mg, By Mouth, 2 times a day, As needed for fever and muscle aches, # 60 tablet, 3 Refills, Maintenance, 08/14/23 13:22:00 EDT, EC Tablet, [facility], Partial fill uponpatient request if the prescription is for a schedu... Start Date: 08/14/23 Status: Ordered Ventolin HFA 108 mcg/inh inhalation aerosol with adapter 2 puffs, Inhalation, 4 times a day, PRN Wheezing/Shortness of Breath, # 1 each, 0 Refills, Maintenance, 12/18/23 13:28:00 EST, Aerosol, [facility], Partial fill upon patient request if the prescription is for a schedule II opioid drug... Start Date: 12/18/23 Status: Ordered Problem List Condition Confirmation Course Effective Dates Status H ealth Status Informant Acquired immune deficiency syndrome (AIDS) with CD4 108 on 09/27/16 Confirmed Active Anal fissure Confirmed Active Axillary hidradenitis suppurativa, chronic and severe. not in groin area. Confirmed Active Depression Confirmed Active History of laparoscopic appendectomy, [facility], dr combs 01/21/2020 Confirmed Active Obese class I Confirmed Active [facility] healthcare recruiter, Liane Chua, Confirmed Active Pulmonary infection due [...] Care Nurse Name: Rocio Marcial RN Position: S RN Member Role: Primary Care Nurse Name: Dionne Morton RN Position: S RN Member Role: Primary Care Nurse Name: Renzo Hernandez RN Position: [facility] RN Supv Member Role: Primary Care Nurse Name: Candie Bustamante RN Position: S RN Member Role: Primary Care Nurse Name: La Hodges RN Position: S RN Member Role: Primary Care Nurse Name: Thais Ortiz RN Position: S RN Member Role: Primary Care Nurse Name: Yulissa Gonzales RN Position: [facility] RN Member Role: Primary Care Nurse Address: Address: [address] [place] [id number]- Name: Heather Youngblood RN Position: [facility] SN RN Member Role: Primary Care Nurse Name: Palmira Ivey LPN Position: [facility] RN Member Role: Primary Care Nurse Name: Carol Ramirez MD Position: [facility] Physician - Primary Care Member Role: PCP Address: Address: [address] [place] [phone]- Care Team Related Persons Name: AMANDA ENGLISH Address: home [address] [place] [id number] Name: BORIS SLATER
--- OUTSIDE RECORDS SUMMARY | 2024-06-27 11:53 | XMS_ITS | Continuity of Care Document ---
Author Organization [facility] Address [address] [place] [address]- Care Team Providers Care Wincher Name Role Phone Carol Ramirez MD Primary Care Physician [place] [facility] [place] - 09/14/[address] [address] Attending Physician: Carol Ramirez MD [...] 07/19/24 15:15:00 EDT, 07/25/23 15:15:00 EDT, Suspension, [facility], Partial fill upon patient request if the prescription is for a schedule II o... Start Date: 07/25/23 Stop Date: 07/19/24 Status: Ordered azithromycin 500 mg oral tablet 1 tablet = 500 mg, By Mouth, Daily, for 30 days, Treatment of MAC. Pls deliver to patient 08/09/2023, # 30 tablet, 2 Refills, Acute 11/06/23 14:13:00 EST, 08/08/23 14:13:00 EDT, Tablet, [facility], Partial fill upon patient request if... Start Date: 08/08/23 Stop Date: 11/06/23 Status: Ordered Biktarvy oral tablet 1 tablet, By Mouth, Daily, # 30 tablet, 11 Refills, Maintenance, 07/25/23 15:15:00 EDT, Tablet, [facility], Partial fill upon patient [...] Refills, Maintenance, 08/14/23 13:22:00 EDT, EC Tablet, [facility], Partial fill uponpatient request if the prescription is for a schedu... 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 Sex Patient Care team information Care Team Personnel Name: Jyoti Chávez RN Position: S RN Member Role: Primary Care Nurse Name: Jocelyn Shirley RN Position: [facility] RN Member [...] Member Role: Primary Care Nurse Address: Address: [address] [place] [address]- Name: Heather Youngblood RN Position: [facility] SN RN Member Role: Primary Care Nurse Name: Palmira Ivey LPN Position: S RN Member Role: Primary Care Nurse Name: Carol Ramirez MD Position: [facility] Physician - Primary Care Member Role: PCP Address: Address: [address] [place] [address]- Care Team Related Persons Name: AMANDA ENGLISH Address: home [address] [place] [address] Name: BORIS SLATER
--- OUTSIDE RECORDS SUMMARY | 2024-06-27 11:53 | XMS_ITS | Continuity of Care Document ---
Author Organization [facility] Address [address] [place] [address]- Care Team Providers Care Media Relations Intern Name Role Phone Ashley HANNON, Carol Primary Care Physician Encounter [facility] Date(s): 08/18/23 - 09/17/[address] [address] Allergies, Adverse Reactions, Alerts Substance [...] 07/19/24 15:15:00 EDT, 07/25/23 15:15:00 EDT, Suspension, [facility], Partial fill upon patient request if the prescription is for a schedule II o... Start Date: 07/25/23 Stop Date: 07/19/24 Status: Ordered azithromycin 500 mg oral tablet 1 tablet = 500 mg, By Mouth, Daily, for 30 days, Treatment of MAC. Pls deliver to patient 08/09/2023, # 30 tablet, 2 Refills, Acute 11/06/23 14:13:00 EST, 08/08/23 14:13:00 EDT, Tablet, [facility], Partial fill upon patient request if... Start Date: 08/08/23 Stop Date: 11/06/23 Status: Ordered Biktarvy oral tablet 1 tablet, By Mouth, Daily, # 30 tablet, 11 Refills, Maintenance, 07/25/23 15:15:00 EDT, Tablet, [facility], Partial fill upon patient [...] 11/06/23 14:14:00 EST, 08/08/23 14:14:00 EDT, Tablet, [facility]... Start Date: 08/08/23 Stop Date: 11/06/23 Status: Ordered naproxen 500 mg oral delayed release tablet 1 tablet = 500 mg, By Mouth, 2 times a day, As needed for fever and muscle aches, # 60 tablet, 3 Refills, Maintenance, 08/14/23 13:22:00 EDT, EC Tablet, [facility], Partial fill uponpatient request if the prescription is for a schedu... Start Date: 08/14/23 Status: Ordered Ventolin HFA 108 mcg/inh inhalation aerosol with adapter 2 puffs, Inhalation, 4 times a day, PRN Wheezing/Shortness of Breath, # 1 each, 11 Refills, Maintenance, 04/26/23 15:10:00 EDT, Aerosol, [facility], Partial fill upon patient [...] mohinder garcia, dr combs 01/21/2020 Confirmed Active [facility] primary care pediatrician, Liane Chua, Confirmed Active Pulmonary infection due [...] Care Nurse Name: Rocio Marcial RN Position: [facility] SN [...] Member Role: Primary Care Nurse Address: Address: [address] [place] [address]- Name: Heather Youngblood RN Position: [facility] SN RN Member Role: Primary Care Nurse Name: Palmira Ivey LPN Position: S RN Member Role: Primary Care Nurse Name: Carol Ramirez MD Position: [facility] Physician - Primary Care Member Role: PCP Address: Address: [address] [place] [address]- Care Team Related Persons Name: AMANDA ENGLISH Address: home [address] [place] [address] Name: BORIS SLATER
--- OUTSIDE RECORDS SUMMARY | 2024-06-27 11:53 | XMS_ITS | Continuity of Care Document ---
Author Organization [facility] Address [address] [place] [address]- Care Team Providers Care Paper Cone Machine Tender Name Role Phone Ashley HANNON, Carol Primary Care Physician Encounter [facility] Date(s): 08/18/23 - 09/17/[address] [id number] Allergies, Adverse Reactions, Alerts Substance Reaction Severity [...] 07/19/24 15:15:00 EDT, 07/25/23 15:15:00 EDT, Suspension, [facility], Partial fill upon patient request if the prescription is for a schedule II o... Start Date: 07/25/23 Stop Date: 07/19/24 Status: Ordered azithromycin 500 mg oral tablet 1 tablet = 500 mg, By Mouth, Daily, for 30 days, Treatment of MAC. Pls deliver to patient 08/09/2023, # 30 tablet, 2 Refills, Acute 11/06/23 14:13:00 EST, 08/08/23 14:13:00 EDT, Tablet, [facility], Partial fill upon patient request if... Start Date: 08/08/23 Stop Date: 11/06/23 Status: Ordered Biktarvy oral tablet 1 tablet, By Mouth, Daily, # 30 tablet, 11 Refills, Maintenance, 07/25/23 15:15:00 EDT, Tablet, [facility], Partial fill upon patient [...] 11/06/23 14:14:00 EST, 08/08/23 14:14:00 EDT, Tablet, [facility]... Start Date: 08/08/23 Stop Date: 11/06/23 Status: Ordered naproxen 500 mg oral delayed release tablet 1 tablet = 500 mg, By Mouth, 2 times a day, As needed for fever and muscle aches, # 60 tablet, 3 Refills, Maintenance, 08/14/23 13:22:00 EDT, EC Tablet, [facility], Partial fill uponpatient request if the prescription is for a schedu... 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 Sex Patient Care team information Care Team Personnel Name: Jyoti Chávze RN Position: S RN Member Role: Primary Care Nurse Name: Jocelyn Shirley RN Position: S RN Member Role: Primary Care Nurse Name: Rocio Marcial RN Position: [facility] SN RN Member Role: Primary [...] Member Role: Primary Care Nurse Address: Address: [address] [place] [address]- Name: Heather Youngblood RN Position: [facility] SN RN Member Role: Primary Care Nurse Name: Palmira Ivey LPN Position: S RN Member Role: Primary Care Nurse Name: Carol Ramirez MD Position: [facility] Physician - Primary Care Member Role: PCP Address: Address: [address] [place] [address]- Care Team Related Persons Name: AMANDA ENGLISH Address: home [address] [place] [address] Name: BORIS SLATER
--- OUTSIDE RECORDS SUMMARY | 2024-06-27 11:53 | XMS_ITS | Continuity of Care Document ---
Author Organization [facility] Address [address] [place] [address]- Care Team Providers Care Computer Patternmaker Name Role Phone Carol Ramirez MD Primary Care Physician [place] [facility] [place] [id number] Date(s): 07/21/23 - 08/20/[address] [address]- Attending Physician: Not on Staff, Attending MD [...] 07/19/24 15:15:00 EDT, 07/25/23 15:15:00 EDT, Suspension, [facility], Partial fill upon patient request if the prescription is for a schedule II o... Start Date: 07/25/23 Stop Date: 07/19/24 Status: Ordered azithromycin 500 mg oral tablet 1 tablet = 500 mg, By Mouth, Daily, for 30 days, Treatment of MAC. Pls deliver to patient 08/09/2023, # 30 tablet, 2 Refills, Acute 11/06/23 14:13:00 EST, 08/08/23 14:13:00 EDT, Tablet, [facility], Partial fill upon patient request if... Start Date: 08/08/23 Stop Date: 11/06/23 Status: Ordered Biktarvy oral tablet 1 tablet, By Mouth, Daily, # 30 tablet, 11 Refills, Maintenance, 07/25/23 15:15:00 EDT, Tablet, [facility], Partial fill upon [...] 1 Refills, Maintenance, 08/14/23 14:47:00 EDT, Capsule, [facility], Partial fill upon [...] Refills, Maintenance, 08/14/23 13:22:00 EDT, EC Tablet, [facility], Partial fill uponpatient [...] 11 Refills, Maintenance, 04/26/23 15:10:00 EDT, Aerosol, [facility], Partial fill upon [...] Depression Confirmed Active [facility] dr combs 01/21/2020 Confirmed Active [facility] healthcare insurance sales agent, Liane Chua, Confirmed Active Pulmonary infection due [...] Care Nurse Name: Rocio Marcial RN Position: [facility] RN Member Role: Primary Care Nurse Name: Dionne Morton RN Position: S RN Member Role: Primary Care Nurse Name: Candie Bustamante RN Position: S RN Member Role: Primary Care Nurse Name: La Hodges RN Position: S RN Member Role: Primary Care Nurse Name: Thais Ortiz RN Position: [facility] RN Member Role: Primary Care Nurse Name: Yulissa Gonzales RN Position: [facility] RN Member Role: Primary Care Nurse Address: Address: [address] [place] [address]- Name: Heather Youngblood RN Position: [facility] SN RN Member Role: Primary Care Nurse Name: Palmira Ivey LPN Position: [facility] RN Member Role: Primary Care Nurse Name: Carol Ramirez MD Position: [facility] Physician - Primary Care Member Role: PCP Address: Address: [address] [place] [id number]- Care Team Related Persons Name: AMANDA ENGLISH Address: home [address] [place] [address] Name: BORIS SLATER
--- OUTSIDE RECORDS SUMMARY | 2024-06-27 11:53 | XMS_ITS | Continuity of Care Document ---
Author Organization [facility] Address [address] [place] [address]- Care Team Providers Care Casting Wheel Operator Name Role Phone Carol Ramirez MD Primary Care Physician [place] [facility] [place] 10/03/23 - 11/08/[address] [address]- Attending Physician: Michael Lundy MD Admitting Physician: Michael Lundy MD Allergies, Adverse Reactions, Alerts Substance Reaction [...] 07/19/24 15:15:00 EDT, 07/25/23 15:15:00 EDT, Suspension, [facility], Partial fill upon patient request if the prescription is for a schedule II o... Start Date: 07/25/23 Stop Date: 07/19/24 Status: Ordered azithromycin 500 mg oral tablet 1 tablet, By Mouth, Daily, # 30 tablet, 2 Refills, Maintenance, 10/31/23 22:32:00 EST, [facility], 167, cm, 08/22/23 13:25:00 EDT, Height, 81, kg, 08/02/23 18:16:00 EDT, Dry Weight Start Date: 10/31/23 Status: Ordered Biktarvy oral tablet 1 tablet, By Mouth, Daily, # 30 tablet, 11 Refills, Maintenance, 07/25/23 15:15:00 EDT, Tablet, [facility], Partial fill upon patient request if the prescription is for a schedule IIopioid drug., 1 tablet By Mouth Daily,x30 days, 165... Start Date: 07/25/23 Stop Date: 07/19/24 Status: Ordered ethambutol 400 mg oral tablet 3 tablet, By Mouth, Daily, # 90 tablet, 2 Refills, Maintenance, 10/31/23 22:32:00 EST, [facility], 167, cm, 08/22/23 13:25:00 EDT, Height, 81, kg, 08/02/23 18:16:00 EDT, Dry Weight Start Date: 10/31/23 Status: Ordered ferrous sulfate 325 mg oral enteric coated tablet 325 mg, 1, tablet, By Mouth, Daily, Iron supplement. Do NOT take at same time as Biktarvy., # 90 tablet, Refills 3, Tot. Refills 3, Maintenance, 10/20/23 13:47:00 EST, Route to Pharmacy Electronically, [facility], Partial fill upon pa... Start Date: 10/20/23 Status: Ordered mometasone 100 mcg/inh inhalation aerosol 2 puffs, Inhalation, 2 times a day, rinse mouth and throat after use New inhaler for asthma. Use 2xper day. In addition, continue albuterol as needed for wheezing., # 13 Gm, 5 Refills, Maintenance, 10/05/23 13:07:00 EST, Aerosol, [facility] Start Date: 10/05/23 Status: Ordered naproxen 500 mg oral delayed release tablet 1 tablet = 500 mg, By Mouth, 2 times a day, As needed for fever and muscle aches, # 60 tablet, 3 Refills, Maintenance, 08/14/23 13:22:00 EDT, EC Tablet, [facility], Partial fill uponpatient request if the prescription is for a schedu... 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 Sex Patient Care team information Care Team Personnel Name: Jyoti Chávez RN Position: [facility] RN Member Role: Primary Care Nurse Name: Jocelyn Shirley RN Position: [facility] RN Member Role: Primary Care Nurse Name: Rocio Marcial RN Position: [facility] RN Member Role: Primary Care [...] Role: Primary Care Nurse Address: Address: [address] [place] [address]- Name: Heather Youngblood RN Position: [facility] SN RN Member Role: Primary Care Nurse Name: Palmira Ivey LPN Position: [facility] RN Member Role: Primary Care Nurse Name: Carol Ramirez MD Position: [facility] Physician - Primary Care Member Role: PCP Address: Address: [address] [place] [address]- Care Team Related Persons Name: AMANDA ENGLISH Address: home [address] [place] [id number] Name: BORIS SLATER
--- OUTSIDE RECORDS SUMMARY | 2024-06-27 11:53 | XMS_ITS | Continuity of Care Document ---
Author Organization [facility] Address [address] [place] [address]- Care Team Providers Care Metal Buffer Name Role Phone Carol Ramirez MD Primary Care Physician Encounter [facility] [place] Date(s): 07/20/23 - 09/20/[address] [address]- Attending Physician: Carol Ramirez MD Admitting Physician: [...] 07/19/24 15:15:00 EDT, 07/25/23 15:15:00 EDT, Suspension, [facility], Partial fill upon patient request if the prescription is for a schedule II o... Start Date: 07/25/23 Stop Date: 07/19/24 Status: Ordered azithromycin 500 mg oral tablet 1 tablet = 500 mg, By Mouth, Daily, for 30 days, Treatment of MAC. Pls deliver to patient 08/09/2023, # 30 tablet, 2 Refills, Acute 11/06/23 14:13:00 EST, 08/08/23 14:13:00 EDT, Tablet, [facility], Partial fill upon patient request if... Start Date: 08/08/23 Stop Date: 11/06/23 Status: Ordered Biktarvy oral tablet 1 tablet, By Mouth, Daily, # 30 tablet, 11 Refills, Maintenance, 07/25/23 15:15:00 EDT, Tablet, [facility], Partial fill upon patient [...] Refills, Maintenance, 08/14/23 13:22:00 EDT, EC Tablet, [facility], Partial fill uponpatient request if the prescription is for a schedu... 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 Sex Patient Care team information Care Team Personnel Name: Jyoti Chávez RN Position: S RN Member Role: Primary Care Nurse Name: Jocelyn Shirley RN Position: [facility] RN Member Role: Primary Care Nurse Name: Rocio Marcial RN Position: [facility] SN RN Member Role: Primary Care Nurse [...] Member Role: Primary Care Nurse Address: Address: [address] [place] [address]- Name: Heather Youngblood RN Position: [facility] SN RN Member Role: Primary Care Nurse Name: Palmira Ivey LPN Position: S RN Member Role: Primary Care Nurse Name: Carol Ramirez MD Position: [facility] Physician - Primary Care Member Role: PCP Address: Address: [address] [place] [address]- Care Team Related Persons Name: AMANDA ENGLISH Address: home [address] [place] [address] Name: BORIS SLATER
--- OUTSIDE RECORDS SUMMARY | 2024-06-27 11:54 | XMS_ITS | Continuity of Care Document ---
Author Organization [facility] Address [address] [place] [address]- Care Team Providers Care Global Logistics Manager Name Role Phone Carol Ramirez MD Primary Care Physician [place] [facility] [place]15[place] - 01/14/24 [facility] [address] [place] [id number] Allergies, Adverse Reactions, Alerts [...] 07/19/24 15:15:00 EDT, 07/25/23 15:15:00 EDT, Suspension, [facility], Partial fill upon patient request if the prescription is for a schedule II o... Start Date: 07/25/23 Stop Date: 07/19/24 Status: Ordered azithromycin 500 mg oral tablet 1 tablet, By Mouth, Daily, # 30 tablet, 2 Refills, Maintenance, 10/31/23 22:32:00 EST, [facility], 167, cm, 08/22/23 13:25:00 EDT, Height, 81, kg, 08/02/23 18:16:00 EDT, Dry Weight Start Date: 10/31/23 Status: Ordered Biktarvy oral tablet 1 tablet, By Mouth, Daily, # 30 tablet, 11 Refills, Maintenance, 07/25/23 15:15:00 EDT, Tablet, [facility], Partial fill upon [...] 0 Refills, Maintenance, 12/18/23 13:28:00 EST, Capsule, [facility], Partial fill upon patient request if the prescription... Start Date: 12/18/23 Status: Ordered ethambutol 400 mg oral tablet 3 tablet, By Mouth, Daily, # 90 tablet, 2 Refills, Maintenance, 10/31/23 22:32:00 EST, [facility], 167, cm, 08/22/23 13:25:00 EDT, Height, 81, kg, 08/02/23 18:16:00 EDT, Dry Weight Start Date: 10/31/23 Status: Ordered ferrous sulfate 325 mg oral enteric coated tablet 325 mg, 1, tablet, By Mouth, Daily, Iron supplement. Do NOT take at same time as Biktarvy., # 90 tablet, Refills 3, Tot. Refills 3, Maintenance, 10/20/23 13:47:00 EST, Route to Pharmacy Electronically, [facility], Partial fill upon pa... Start Date: 10/20/23 Status: Ordered mometasone 100 mcg/inh inhalation aerosol 2 puffs, Inhalation, 2 times a day, rinse mouth and throat after use New inhaler for asthma. Use 2xper day. In addition, continue albuterol as needed for wheezing., # 13 Gm, 5 Refills, Maintenance, 10/05/23 13:07:00 EST, Aerosol, [facility] Start Date: 10/05/23 Status: Ordered naproxen 500 mg oral delayed release tablet 1 tablet = 500 mg, By Mouth, 2 times a day, As needed for fever and muscle aches, # 60 tablet, 3 Refills, Maintenance, 08/14/23 13:22:00 EDT, EC Tablet, [facility], Partial fill uponpatient request if the prescription is for a schedu... Start Date: 08/14/23 Status: Ordered Ventolin HFA 108 mcg/inh inhalation aerosol with adapter 2 puffs, Inhalation, 4 times a day, PRN Wheezing/Shortness of Breath, # 1 each, 0 Refills, Maintenance, 12/18/23 13:28:00 EST, Aerosol, [facility], Partial fill upon [...] Depression Confirmed Active History of laparoscopic appendectomy, [place], dr combs 01/21/2020 Confirmed Active Obese class I Confirmed Active [facility] customer care agent, Liane Chua, Confirmed Active Pulmonary infection [...] Name: Rocio Marcial RN Position: [facility] RN Member Role: Primary Care Nurse Name: Dionne Morton RN Position: S RN Member Role: Primary Care Nurse Name: Renzo Hernandez RN Position: [facility] RN Supv Member Role: Primary Care Nurse Name: Candie Bustamante RN Position: [facility] RN Member Role: Primary Care Nurse Name: La Hodges RN Position: S RN Member Role: Primary Care Nurse Name: Thais Ortiz RN Position: [facility] RN Member Role: Primary Care Nurse Name: Yulissa Gonzales RN Position: [facility] RN Member Role: Primary Care Nurse Address: Address: [address] [place] [address]- Name: Heather Youngblood RN Position: [facility] SN RN Member Role: Primary Care Nurse Name: Palmira Ivey LPN Position: [facility] RN Member Role: Primary Care Nurse Name: Carol Ramirez MD Position: [facility] Physician - Primary Care Member Role: PCP Address: Address: [address] [place] [address]- Care Team Related Persons Name: AMANDA ENGLISH Address: home [address] [place] [address] Name: BORIS SLATER
--- OUTSIDE RECORDS SUMMARY | 2024-06-27 11:54 | XMS_ITS | Continuity of Care Document ---
Author Organization [facility] Address [address] [place] [address]- Care Team Providers Care Rn Gyn Name Role Phone Carol Ramirez MD Primary Care Physician Encounter [facility] [place] Date(s): 02/07/24 - 03/08/[address] [address]- Allergies, Adverse Reactions, Alerts Substance Reaction Severity [...] 07/19/24 15:15:00 EDT, 07/25/23 15:15:00 EDT, Suspension, [facility], Partial fill upon patient request if the prescription is for a schedule II o... Start Date: 07/25/23 Stop Date: 07/19/24 Status: Ordered azithromycin 500 mg oral tablet 1 tablet, By Mouth, Daily, # 30 tablet, 2 Refills, Maintenance, 10/31/23 22:32:00 EST, [facility], 167, cm, 08/22/23 13:25:00 EDT, Height, 81, kg, 08/02/23 18:16:00 EDT, Dry Weight Start Date: 10/31/23 Status: Ordered Biktarvy oral tablet 1 tablet, By Mouth, Daily, # 30 tablet, 11 Refills, Maintenance, 07/25/23 15:15:00 EDT, Tablet, [facility], Partial fill upon patient [...] 0 Refills, Maintenance, 12/18/23 13:28:00 EST, Capsule, [facility], Partial fill upon patient request if the prescription... Start Date: 12/18/23 Status: Ordered ethambutol 400 mg oral tablet 3 tablet, By Mouth, Daily, # 90 tablet, 2 Refills, Maintenance, 10/31/23 22:32:00 EST, [facility], 167, cm, 08/22/23 13:25:00 EDT, Height, 81, kg, 08/02/23 18:16:00 EDT, Dry Weight Start Date: 10/31/23 Status: Ordered ferrous sulfate 325 mg oral enteric coated tablet 325 mg, 1, tablet, By Mouth, Daily, Iron supplement. Do NOT take at same time as Biktarvy., # 90 tablet, Refills 3, Tot. Refills 3, Maintenance, 10/20/23 13:47:00 EST, Route to Pharmacy Electronically, [facility], Partial fill upon pa... Start Date: 10/20/23 Status: Ordered mometasone 100 mcg/inh inhalation aerosol 2 puffs, Inhalation, 2 times a day, rinse mouth and throat after use New inhaler for asthma. Use 2xper day. In addition, continue albuterol as needed for wheezing., # 13 Gm, 5 Refills, Maintenance, 10/05/23 13:07:00 EST, Aerosol, [facility] Start Date: 10/05/23 Status: Ordered naproxen 500 mg oral delayed release tablet 1 tablet, By Mouth, 2 times a day, PRN NEEDED FOR FEVER/ MUSCLE ACHES, # 60 tablet, 3 Refills, Maintenance, 01/29/24 17:11:00 EDT, [facility], 167, cm, 12/25/23 13:04:00 EST, Height, 81, kg, 08/02/23 18:16:00 EDT, Dry Weight Start Date: 01/29/24 Status: Ordered Ventolin HFA 108 mcg/inh inhalation aerosol with adapter 2 puffs, Inhalation, 4 times a day, PRN NEEDED, WHEEZING/ SHORTNESS OF BREATH., # 8.5 Gm, 0 Refills, Maintenance, 01/29/24 8:41:00 EDT, [facility], 167, cm, 12/25/23 13:04:00 EST,Height, [...] Depression Confirmed Active History of laparoscopic appendectomy, [facility], dr combs 01/21/2020 Confirmed Active Obese class I Confirmed Active [facility] senior care manager, Liane Chua, Confirmed Active Pulmonary infection due [...] Care Nurse Name: Rocio Marcial RN Position: [facility] RN Member Role: Primary Care Nurse Name: Dionne Morton RN Position: [facility] RN Member Role: Primary Care Nurse Name: Renzo Hernandez RN Position: [facility] RN Supv Member Role: Primary Care Nurse Name: Candie Bustamante RN Position: [facility] RN Member Role: Primary Care Nurse Name: La Hodges RN Position: [facility] RN Member Role: Primary Care Nurse Name: Thais Ortiz RN Position: [facility] RN Member Role: Primary Care Nurse Name: Heather Youngblood RN Position: [facility] SN RN Member Role: Primary Care Nurse Name: Palmira Ivey LPN Position: [facility] RN Member Role: Primary Care Nurse Name: Carol Ramirez MD Position: [facility] Physician - Primary Care Member Role: PCP Address: Address: [address] [place] [address]- Care Team Related Persons Name: TAMEKA AMANDA Address: [address] [address] Name: BOIRS SLATER
--- OUTSIDE RECORDS SUMMARY | 2024-06-27 11:54 | XMS_ITS | Continuity of Care Document ---
Author Organization [facility] Address [address] [place] [address]- Care Team Providers Care Metal Wire Technician Name Role Phone Carol Ramirez MD Primary Care Physician [place] [facility] [facility] [place] [id number] Date(s): 12/11/23 - 02/28/[address] [address]- Attending Physician: Not on Staff, Attending MD [...] EDT, 07/25/23 15:15:00 EDT, Suspension, [facility], Partial fill upon patient request if the prescription is for a schedule II o... Start Date: 07/25/23 Stop Date: 07/19/24 Status: Ordered azithromycin 500 mg oral tablet 1 tablet, By Mouth, Daily, # 30 tablet, 2 Refills, Maintenance, 10/31/23 22:32:00 EST, [facility], 167, cm, 08/22/23 13:25:00 EDT, Height, 81, kg, 08/02/23 18:16:00 EDT, Dry Weight Start Date: 10/31/23 Status: Ordered Biktarvy oral tablet 1 tablet, By Mouth, Daily, # 30 tablet, 11 Refills, Maintenance, 07/25/23 15:15:00 EDT, Tablet, [facility], Partial fill upon patient request [...] Refills, Maintenance, 12/18/23 13:28:00 EST, Capsule, [facility], Partial fill upon patient request if the prescription... Start Date: 12/18/23 Status: Ordered ethambutol 400 mg oral tablet 3 tablet, By Mouth, Daily, # 90 tablet, 2 Refills, Maintenance, 10/31/23 22:32:00 EST, [facility], 167, cm, 08/22/23 13:25:00 EDT, Height, 81, kg, 08/02/23 18:16:00 EDT, Dry Weight Start Date: 10/31/23 Status: Ordered ferrous sulfate 325 mg oral enteric coated tablet 325 mg, 1, tablet, By Mouth, Daily, Iron supplement. Do NOT take at same time as Biktarvy., # 90 tablet, Refills 3, Tot. Refills 3, Maintenance, 10/20/23 13:47:00 EST, Route to Pharmacy Electronically, [facility], Partial fill upon pa... Start Date: 10/20/23 Status: Ordered mometasone 100 mcg/inh inhalation aerosol 2 puffs, Inhalation, 2 times a day, rinse mouth and throat after use New inhaler for asthma. Use 2xper day. In addition, continue albuterol as needed for wheezing., # 13 Gm, 5 Refills, Maintenance, 10/05/23 13:07:00 EST, Aerosol, [facility]... Start Date: 10/05/23 Status: Ordered naproxen 500 mg oral delayed release tablet 1 tablet, By Mouth, 2 times a day, PRN NEEDED FOR FEVER/ MUSCLE ACHES, # 60 tablet, 3 Refills, Maintenance, 01/29/24 17:11:00 EDT, [facility], 167, cm, 12/25/23 13:04:00 EST, Height, 81, kg, 08/02/23 18:16:00 EDT, Dry Weight Start Date: 01/29/24 Status: Ordered Ventolin HFA 108 mcg/inh inhalation aerosol with adapter 2 puffs, Inhalation, 4 times a day, PRN NEEDED, WHEEZING/ SHORTNESS OF BREATH., # 8.5 Gm, 0 Refills, Maintenance, 01/29/24 8:41:00 EDT, [facility], 167, cm, 12/25/23 13:04:00 EST,Height, [...] laparoscopic appendectomy, [facility], dr combs 01/21/2020 Confirmed Active Obese class I Confirmed Active [facility] career guidance counselor, Liane Chua, Confirmed Active Pulmonary infection due [...] Care Nurse Name: Rocio Marcial RN Position: [facility] SN RN Member Role: Primary Care Nurse Name: Dionne Morton RN Position: [facility] RN Member Role: Primary Care Nurse Name: Renzo Hernandez RN Position: [facility] RN Supv Member Role: Primary Care Nurse Name: Candie Bustamante RN Position: [facility] RN Member Role: Primary Care Nurse Name: La Hodges RN Position: [facility] RN Member Role: Primary Care Nurse Name: Thais Ortiz RN Position: [facility] RN Member Role: Primary Care Nurse Name: Yulissa Gonzales RN Position: [facility] RN Member Role: Primary Care Nurse Address: Address: [address] [place] [address]- Name: Heather Youngblood RN Position: [facility] SN RN Member Role: Primary Care Nurse Name: Palmira Ivey LPN Position: [facility] RN Member Role: Primary Care Nurse Name: Carol Ramirez MD Position: [facility] Physician - Primary Care Member Role: PCP Address: Address: [address] [place] [address]- Care Team Related Persons Name: AMANDA ENGLISH Address: home [address] [place] [phone] Name: BORIS SLATER
--- OUTSIDE RECORDS SUMMARY | 2024-06-27 11:54 | XMS_ITS | Continuity of Care Document ---
Author Organization [facility] Address [address] [place] [address]- Care Team Providers Care Food Quality Technician Name Role Phone Carol Ramirez MD Primary Care Physician Encounter [facility] [place] Date(s): 07/31/23 - 08/30/[address] [address]- Allergies, Adverse Reactions, Alerts Substance Reaction Severity [...] 07/19/24 15:15:00 EDT, 07/25/23 15:15:00 EDT, Suspension, [facility], Partial fill upon patient request if the prescription is for a schedule II o... Start Date: 07/25/23 Stop Date: 07/19/24 Status: Ordered azithromycin 500 mg oral tablet 1 tablet = 500 mg, By Mouth, Daily, for 30 days, Treatment of MAC. Pls deliver to patient 08/09/2023, # 30 tablet, 2 Refills, Acute 11/06/23 14:13:00 EST, 08/08/23 14:13:00 EDT, Tablet, [facility], Partial fill upon patient request if... Start Date: 08/08/23 Stop Date: 11/06/23 Status: Ordered Biktarvy oral tablet 1 tablet, By Mouth, Daily, # 30 tablet, 11 Refills, Maintenance, 07/25/23 15:15:00 EDT, Tablet, [facility], Partial fill upon [...] 1 Refills, Maintenance, 08/14/23 14:47:00 EDT, Capsule, [facility], Partial fill upon [...] Refills, Maintenance, 08/14/23 13:22:00 EDT, EC Tablet, [facility], Partial fill uponpatient request if the prescription is for a schedu... Start Date: 08/14/23 Status: Ordered Ventolin HFA 108 mcg/inh inhalation aerosol with adapter 2 puffs, Inhalation, 4 times a day, PRN Wheezing/Shortness of Breath, # 1 each, 11 Refills, Maintenance, 04/26/23 15:10:00 EDT, Aerosol, [facility], Partial fill [...] Depression Confirmed Active History of laparoscopic appendectomy, [facility], dr combs 01/21/2020 Confirmed Active Pulmonary infection [...] Name: Jocelyn Shirley RN Position: [facility] RN Member Role: Primary Care Nurse Name: Rocio Marcial RN Position: [facility] SN RN Member Role: Primary Care Nurse Name: Dionne Morton RN Position: S RN Member Role: Primary Care Nurse Name: Candie Bustamante RN Position: S RN Member Role: Primary Care Nurse Name: La Hodges RN Position: [facility] RN Member Role: Primary Care Nurse Name: Thais Ortiz RN Position: [facility] RN Member Role: Primary Care Nurse Name: Yulissa Gonzales RN Position: S RN Member Role: Primary Care Nurse Address: Address: [address] [place] [address]- Name: Heather Youngblood RN Position: [facility] SN RN Member Role: Primary Care Nurse Name: Palmira Ivey LPN Position: S RN Member Role: Primary Care Nurse Name: Carol Ramirez MD Position: [facility] Physician - Primary Care Member Role: PCP Address: Address: [address] [place] [address]- Care Team Related Persons Name: AMANDA ENGLISH Address: home [address] [place] [id number] Name: BORIS SLATER
--- OUTSIDE RECORDS SUMMARY | 2024-06-27 11:55 | XMS_ITS | Continuity of Care Document ---
Author Organization [facility] Address [address] [place] [address]- Care Team Providers Care Supplier Engineer Name Role Phone Carol Ramirez MD Primary Care Physician Encounter [facility] [place] Date(s): 01/26/24 - 02/25/[address] [address]- Allergies, Adverse Reactions, Alerts Substance Reaction Severity [...] 07/19/24 15:15:00 EDT, 07/25/23 15:15:00 EDT, Suspension, [facility], Partial fill upon patient request if the prescription is for a schedule II o... Start Date: 07/25/23 Stop Date: 07/19/24 Status: Ordered azithromycin 500 mg oral tablet 1 tablet, By Mouth, Daily, # 30 tablet, 2 Refills, Maintenance, 10/31/23 22:32:00 EST, [facility], 167, cm, 08/22/23 13:25:00 EDT, Height, 81, kg, 08/02/23 18:16:00 EDT, Dry Weight Start Date: 10/31/23 Status: Ordered Biktarvy oral tablet 1 tablet, By Mouth, Daily, # 30 tablet, 11 Refills, Maintenance, 07/25/23 15:15:00 EDT, Tablet, [facility], Partial fill upon [...] 0 Refills, Maintenance, 12/18/23 13:28:00 EST, Capsule, [facility], Partial fill upon patient request if the prescription... Start Date: 12/18/23 Status: Ordered ethambutol 400 mg oral tablet 3 tablet, By Mouth, Daily, # 90 tablet, 2 Refills, Maintenance, 10/31/23 22:32:00 EST, [facility], 167, cm, 08/22/23 13:25:00 EDT, Height, 81, kg, 08/02/23 18:16:00 EDT, Dry Weight Start Date: 10/31/23 Status: Ordered ferrous sulfate 325 mg oral enteric coated tablet 325 mg, 1, tablet, By Mouth, Daily, Iron supplement. Do NOT take at same time as Biktarvy., # 90 tablet, Refills 3, Tot. Refills 3, Maintenance, 10/20/23 13:47:00 EST, Route to Pharmacy Electronically, [facility], Partial fill upon pa... Start Date: 10/20/23 Status: Ordered mometasone 100 mcg/inh inhalation aerosol 2 puffs, Inhalation, 2 times a day, rinse mouth and throat after use New inhaler for asthma. Use 2xper day. In addition, continue albuterol as needed for wheezing., # 13 Gm, 5 Refills, Maintenance, 10/05/23 13:07:00 EST, Aerosol, [facility] Start Date: 10/05/23 Status: Ordered naproxen 500 mg oral delayed release tablet 1 tablet, By Mouth, 2 times a day, PRN NEEDED FOR FEVER/ MUSCLE ACHES, # 60 tablet, 3 Refills, Maintenance, 01/29/24 17:11:00 EDT, [facility], 167, cm, 12/25/23 13:04:00 EST, Height, 81, kg, 08/02/23 18:16:00 EDT, Dry Weight Start Date: 01/29/24 Status: Ordered Ventolin HFA 108 mcg/inh inhalation aerosol with adapter 2 puffs, Inhalation, 4 times a day, PRN NEEDED, WHEEZING/ SHORTNESS OF BREATH., # 8.5 Gm, 0 Refills, Maintenance, 01/29/24 8:41:00 EDT, [facility], 167, cm, 12/25/23 13:04:00 [...] Depression Confirmed Active History of laparoscopic appendectomy, [facility], dr combs 01/21/2020 Confirmed Active Obese class I Confirmed Active [facility] career coach, Liane Chua, Confirmed Active Pulmonary infection due [...] Care Nurse Name: Rocio Marcial RN Position: [facility] RN Member Role: Primary Care Nurse Name: Dionne Morton RN Position: [facility] RN Member Role: Primary Care Nurse Name: Renzo Hernandez RN Position: [facility] RN Supv Member Role: Primary Care Nurse Name: Candie Bustamante RN Position: S RN Member Role: Primary Care Nurse Name: La Hodges RN Position: S RN Member Role: Primary Care Nurse Name: Thais Ortiz RN Position: [facility] RN Member Role: Primary Care Nurse Name: Yulissa Gonzales RN Position: [facility] RN Member Role: Primary Care Nurse Address: Address: [address] [place] [address]- Name: Heather Youngblood RN Position: [facility] SN RN Member Role: Primary Care Nurse Name: Palmira Ivey LPN Position: [facility] RN Member Role: Primary Care Nurse Name: Carol Ramirez MD Position: [facility] Physician - Primary Care Member Role: PCP Address: Address: [address] [place] [address]- Care Team Related Persons Name: AMANDA ENGLISH Address: home [address] [place] [address] Name: BORIS SLATER
--- OUTSIDE RECORDS SUMMARY | 2024-06-27 11:55 | XMS_ITS | Continuity of Care Document ---
Author Organization [facility] Address [address] [place] [address]- Care Team Providers Care Learning Technologies Specialist Name Role Phone Carol Ramirez MD Primary Care Physician Encounter [facility] [place] Date(s): 07/28/23 - 08/27/[address] [address]- Allergies, Adverse Reactions, Alerts Substance Reaction Severity [...] 07/19/24 15:15:00 EDT, 07/25/23 15:15:00 EDT, Suspension, [facility], Partial fill upon patient request if the prescription is for a schedule II o... Start Date: 07/25/23 Stop Date: 07/19/24 Status: Ordered azithromycin 500 mg oral tablet 1 tablet = 500 mg, By Mouth, Daily, for 30 days, Treatment of MAC. Pls deliver to patient 08/09/2023, # 30 tablet, 2 Refills, Acute 11/06/23 14:13:00 EST, 08/08/23 14:13:00 EDT, Tablet, [facility], Partial fill upon patient request if... Start Date: 08/08/23 Stop Date: 11/06/23 Status: Ordered Biktarvy oral tablet 1 tablet, By Mouth, Daily, # 30 tablet, 11 Refills, Maintenance, 07/25/23 15:15:00 EDT, Tablet, [facility], Partial fill upon [...] 1 Refills, Maintenance, 08/14/23 14:47:00 EDT, Capsule, [facility], Partial fill upon [...] Refills, Maintenance, 08/14/23 13:22:00 EDT, EC Tablet, [facility], Partial fill uponpatient request if the prescription is for a schedu... Start Date: 08/14/23 Status: Ordered oxyCODONE 5 mg oral tablet 5 mg, 1, tablet, By Mouth, 3 times a day, PRN, for 7 days, Fill on/after 08/22/2023 TAYLOR perez checked, appropriate, # 21 tablet, Refills 0, Tot. Refills 0, Acute 08/29/23 13:34:00 EDT, as needed for pain, 08/22/23 13:34:00 EDT, Route to Pharmacy Electron... Start Date: 08/22/23 Stop Date: 08/29/23 Status: Ordered Ventolin HFA 108 mcg/inh inhalation aerosol with adapter 2 puffs, Inhalation, 4 times a day, PRN Wheezing/Shortness of Breath, # 1 each, 11 Refills, Maintenance, 04/26/23 15:10:00 EDT, Aerosol, [facility], Partial fill upon [...] [facility], dr combs 01/21/2020 Confirmed Active Pulmonary infection [...] Care Nurse Name: Rocio Marcial RN Position: [facility] SN RN Member Role: Primary Care Nurse Name: Dionne Morton RN Position: S RN Member Role: Primary Care Nurse Name: Candie Bustamante RN Position: S RN Member Role: Primary Care Nurse Name: La Hodges RN Position: S RN Member Role: Primary Care Nurse Name: Thais Ortiz RN Position: S RN Member Role: Primary Care Nurse Name: Yulissa Gonzales RN Position: [facility] RN Member Role: Primary Care Nurse Address: Address: [address] [place] [address]- Name: Heather Youngblood RN Position: [facility] SN RN Member Role: Primary Care Nurse Name: Palmira Ivey LPN Position: [facility] RN Member Role: Primary Care Nurse Name: Carol Ramirez MD Position: [facility] Physician - Primary Care Member Role: PCP Address: Address: [address] [place] [address]- Care Team Related Persons Name: AMANDA ENGLISH Address: home [address] [place] [address] Name: BORIS SLATER
--- OUTSIDE RECORDS SUMMARY | 2024-06-27 11:55 | XMS_ITS | Continuity of Care Document ---
Author Organization [facility] Address [address] [place] [address]- Care Team Providers Care Rate Manager Name Role Phone Carol Ramirez MD Primary Care Physician Encounter [facility] [place] [facility] [id number] Date(s): 02/08/24 - 03/09/[address] [address]- Attending Physician: Isabela Rivera Admitting Physician: AdmtrIsabela Referring Physician: AdmtrIsabela Allergies, Adverse Reactions, Alerts [...] 07/19/24 15:15:00 EDT, 07/25/23 15:15:00 EDT, Suspension, [facility], Partial fill upon patient request if the prescription is for a schedule II o... Start Date: 07/25/23 Stop Date: 07/19/24 Status: Ordered azithromycin 500 mg oral tablet 1 tablet, By Mouth, Daily, # 30 tablet, 2 Refills, Maintenance, 10/31/23 22:32:00 EST, [facility], 167, cm, 08/22/23 13:25:00 EDT, Height, 81, kg, 08/02/23 18:16:00 EDT, Dry Weight Start Date: 10/31/23 Status: Ordered Biktarvy oral tablet 1 tablet, By Mouth, Daily, # 30 tablet, 11 Refills, Maintenance, 07/25/23 15:15:00 EDT, Tablet, [facility], Partial fill upon patient request [...] 0 Refills, Maintenance, 12/18/23 13:28:00 EST, Capsule, [facility], Partial fill upon patient request if the prescription... Start Date: 12/18/23 Status: Ordered ethambutol 400 mg oral tablet 3 tablet, By Mouth, Daily, # 90 tablet, 2 Refills, Maintenance, 10/31/23 22:32:00 EST, [facility], 167, cm, 08/22/23 13:25:00 EDT, Height, 81, kg, 08/02/23 18:16:00 EDT, Dry Weight Start Date: 10/31/23 Status: Ordered ferrous sulfate 325 mg oral enteric coated tablet 325 mg, 1, tablet, By Mouth, Daily, Iron supplement. Do NOT take at same time as Biktarvy., # 90 tablet, Refills 3, Tot. Refills 3, Maintenance, 10/20/23 13:47:00 EST, Route to Pharmacy Electronically, [facility], Partial fill upon pa... Start Date: 10/20/23 Status: Ordered mometasone 100 mcg/inh inhalation aerosol 2 puffs, Inhalation, 2 times a day, rinse mouth and throat after use New inhaler for asthma. Use 2xper day. In addition, continue albuterol as needed for wheezing., # 13 Gm, 5 Refills, Maintenance, 10/05/23 13:07:00 EST, Aerosol, [facility]... Start Date: 10/05/23 Status: Ordered naproxen 500 mg oral delayed release tablet 1 tablet, By Mouth, 2 times a day, PRN NEEDED FOR FEVER/ MUSCLE ACHES, # 60 tablet, 3 Refills, Maintenance, 01/29/24 17:11:00 EDT, [facility], 167, cm, 12/25/23 13:04:00 EST, Height, 81, kg, 08/02/23 18:16:00 EDT, Dry Weight Start Date: 01/29/24 Status: Ordered Ventolin HFA 108 mcg/inh inhalation aerosol with adapter 2 puffs, Inhalation, 4 times a day, PRN NEEDED, WHEEZING/ SHORTNESS OF BREATH., # 8.5 Gm, 0 Refills, Maintenance, 01/29/24 8:41:00 EDT, [facility], 167, cm, 12/25/23 13:04:00 EST,Height, [...] Confirmed Active History of laparoscopic appendectomy, [facility], dr combs 01/21/2020 Confirmed Active Obese class I Confirmed Active [employer]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 Sex Hospital Consult note * Event Display: Inpatient Consult Note, Non-BH Authored Date: * Event Display: Inpatient Consult Note, Non-BH Authored Date: Cardiology * Event Display: EKG Non BH Authored Date: Laboratory * Event Display: Non Lab Results Authored Date: Patient Care team information Care Team Personnel Name: Jyoti Chávez RN Position: [facility] RN Member Role: Primary Care Nurse Name: Jocelyn Shirley RN Position: S RN Member Role: Primary Care Nurse Name: Rocio Marcial RN Position: [facility] SN RN Member Role: Primary Care Nurse Name: Dionne Morton RN Position: [facility] RN Member Role: Primary Care Nurse Name: Renzo Hernandez RN Position: [facility] RN Supv Member Role: Primary Care Nurse Name: Candie Bustamante RN Position: [facility] RN Member Role: Primary Care Nurse Name: La Hodges RN Position: [facility] RN Member Role: Primary Care Nurse Name: Thais Ortiz RN Position: [facility] RN Member Role: Primary Care Nurse Name: Heather Youngblood RN Position: [facility] SN RN Member Role: Primary Care Nurse Name: Palmira Ivey LPN Position: [facility] RN Member Role: Primary Care Nurse Name: Carol Ramirez MD Position: [facility] Physician - Primary Care Member Role: PCP Address: Address: [address] [place] [address]- [place] Care Team Related Persons Name: AMANDA ENGLISH Address: home [address] [place] [address] Name: BORIS SLATER
--- OUTSIDE RECORDS SUMMARY | 2024-06-27 11:55 | XMS_ITS | Continuity of Care Document ---
Author Organization [facility] Address [address] [place] [address]- Care Team Providers Care Machine Wood Sander Name Role Phone Carol Ramirez MD Primary Care Physician Encounter [facility] [place] Date(s): 07/27/23 - 08/26/[address] [address]- Allergies, Adverse Reactions, Alerts Substance Reaction Severity [...] Depression Confirmed Active History of laparoscopic appendectomy, [facility], dr combs 01/21/2020 Confirmed Active [...] Care Nurse Name: Rocio Marcial RN Position: [facility] SN RN Member Role: Primary Care Nurse [...] Member Role: Primary Care Nurse Address: Address: [address] [place] [address]- Name: Heather Youngblood RN Position: [facility] SN RN Member Role: Primary Care Nurse Name: Palmira Ivey LPN Position: [facility] RN Member Role: Primary Care Nurse Name: Carol Ramirez MD Position: [facility] Physician - Primary Care Member Role: PCP Address: Address: [address] [place] [address]- Care Team Related Persons Name: AMANDA ENGLISH Address: home [address] [place] [address] Name: BORIS SLATER
--- OUTSIDE RECORDS SUMMARY | 2024-06-27 11:55 | XMS_ITS | Continuity of Care Document ---
Author Organization [facility] Address [address] [place] [address]- Care Team Providers Care Liability Analyst Name Role Phone Carol Ramirez MD Primary Care Physician Encounter [facility] [place] Date(s): 12/25/23 - 02/09/[address] [address]- Attending Physician: Ismael Wei MD Admitting Physician: Ismael Wei MD Referring Physician: Hima Siu MD Allergies, Adverse Reactions, Alerts Substance Reaction [...] Date: 07/25/23 Stop Date: 07/19/24 Status: Ordered Augmentin 875 mg-125 mg oral tablet 1 tablet, By Mouth, Every 12 hours, for 7 days, # 14 tablet, 0 Refills, Acute 02/15/24 9:37:00 EDT,02/08/24 9:37:00 EDT, Tablet, [id number], Partial fill upon patient request if the prescription is for a schedule II opioid drug., 167, cm, 03... Start Date: 02/08/24 Stop Date: 02/15/24 Status: Ordered azithromycin 500 mg oral tablet 1 tablet, By Mouth, Daily, # 30 tablet, 2 Refills, Maintenance, 10/31/23 22:32:00 EST, [facility], 167, cm, 08/22/23 13:25:00 EDT, Height, 81, kg, 08/02/23 18:16:00 EDT, Dry Weight Start Date: 10/31/23 Status: Ordered Biktarvy oral tablet 1 tablet, By Mouth, Daily, # 30 tablet, 11 Refills, Maintenance, 07/25/23 15:15:00 EDT, Tablet, [facility], Partial fill upon patient request [...] 0 Refills, Maintenance, 12/18/23 13:28:00 EST, Capsule, [facility], Partial fill upon patient request if the prescription... Start Date: 12/18/23 Status: Ordered ethambutol 400 mg oral tablet 3 tablet, By Mouth, Daily, # 90 tablet, 2 Refills, Maintenance, 10/31/23 22:32:00 EST, [facility], 167, cm, 08/22/23 13:25:00 EDT, Height, 81, kg, 08/02/23 18:16:00 EDT, Dry Weight Start Date: 10/31/23 Status: Ordered ferrous sulfate 325 mg oral enteric coated tablet 325 mg, 1, tablet, By Mouth, Daily, Iron supplement. Do NOT take at same time as Biktarvy., # 90 tablet, Refills 3, Tot. Refills 3, Maintenance, 10/20/23 13:47:00 EST, Route to Pharmacy Electronically, [facility], Partial fill upon pa... Start Date: 10/20/23 Status: Ordered mometasone 100 mcg/inh inhalation aerosol 2 puffs, Inhalation, 2 times a day, rinse mouth and throat after use New inhaler for asthma. Use 2xper day. In addition, continue albuterol as needed for wheezing., # 13 Gm, 5 Refills, Maintenance, 10/05/23 13:07:00 EST, Aerosol, [facility]... Start Date: 10/05/23 Status: Ordered naproxen 500 mg oral delayed release tablet 1 tablet, By Mouth, 2 times a day, PRN NEEDED FOR FEVER/ MUSCLE ACHES, # 60 tablet, 3 Refills, Maintenance, 01/29/24 17:11:00 EDT, [facility], 167, cm, 12/25/23 13:04:00 EST, Height, 81, kg, 08/02/23 18:16:00 EDT, Dry Weight Start Date: 01/29/24 Status: Ordered predniSONE 20 mg oral tablet See Instructions, TAKE 2 TABLETS BY MOUTH EVERY DAY FOR 2 DAYS, # 4 capsule, 0 Refills, Physician Stop 02/12/24 8:59:00 EDT, 02/10/24 9:00:00 EDT, [facility][id number], 167, cm, 02/08/24 9:14:00 EDT, Height, 81, kg, 08/02/23 18:16:00 EDT, Dry Weight Start Date: 02/10/24 Stop Date: 02/12/24 Status: Ordered Ventolin HFA 108 mcg/inh inhalation aerosol with adapter 2 puffs, Inhalation, 4 times a day, PRN NEEDED, WHEEZING/ SHORTNESS OF BREATH., # 8.5 Gm, 0 Refills, Maintenance, 01/29/24 8:41:00 EDT, [facility], 167, cm, 12/25/23 13:04:00 EST,Height, 81, [...] appendectomy, dr garret man 01/21/2020 Confirmed Active Obese class I Confirmed Active [facility] 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, 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 Chua, Confirmed Active Pulmonary infection [...] Care Nurse Name: Jocelyn Shirley RN Position: [facility] RN Member Role: Primary Care Nurse Name: Rocio Marcial RN Position: [facility] SN RN Member Role: Primary Care Nurse Name: Dionne Morton RN Position: [facility] RN Member Role: Primary Care Nurse Name: Renzo Hernandez RN Position: [facility] RN Paige Member Role: Primary Care Nurse Name: Candie Bustamante RN Position: S RN Member Role: Primary Care Nurse Name: La Hodges RN Position: S RN Member Role: Primary Care Nurse Name: Thais Ortiz RN Position: S RN Member Role: Primary Care Nurse Name: Yulissa Gonzales RN Position: S RN Member Role: Primary Care Nurse Address: Address: [address] [place] [address]- Name: Heather Youngblood RN Position: [facility] SN RN Member Role: Primary Care Nurse Name: Palmira Ivey LPN Position: S RN Member Role: Primary Care Nurse Name: Carol Ramirez MD Position: [facility] Physician - Primary Care Member Role: PCP Address: Address: [address] [place] [address]- Care Team Related Persons Name: AMANDA ENGLISH Address: home [address] [place] [id number] Name: BORIS SLATER
--- OUTSIDE RECORDS SUMMARY | 2024-06-27 11:55 | XMS_ITS | Continuity of Care Document ---
Author Organization [facility] Address [address] [place] [address]- Care Team Providers Care Sign Out Clerk Name Role Phone Carol Ramirez MD Primary Care Physician Encounter [facility] Date(s): 02/08/24 - 03/09/[address] [address]- Attending Physician: Not on Staff, Attending MD [...] 07/19/24 15:15:00 EDT, 07/25/23 15:15:00 EDT, Suspension, [facility], Partial fill upon patient request if the prescription is for a schedule II o... Start Date: 07/25/23 Stop Date: 07/19/24 Status: Ordered azithromycin 500 mg oral tablet 1 tablet, By Mouth, Daily, # 30 tablet, 2 Refills, Maintenance, 10/31/23 22:32:00 EST, [facility], 167, cm, 08/22/23 13:25:00 EDT, Height, 81, kg, 08/02/23 18:16:00 EDT, Dry Weight Start Date: 10/31/23 Status: Ordered Biktarvy oral tablet 1 tablet, By Mouth, Daily, # 30 tablet, 11 Refills, Maintenance, 07/25/23 15:15:00 EDT, Tablet, [facility], Partial fill upon [...] 0 Refills, Maintenance, 12/18/23 13:28:00 EST, Capsule, [facility], Partial fill upon patient request if the prescription... Start Date: 12/18/23 Status: Ordered ethambutol 400 mg oral tablet 3 tablet, By Mouth, Daily, # 90 tablet, 2 Refills, Maintenance, 10/31/23 22:32:00 EST, [facility], 167, cm, 08/22/23 13:25:00 EDT, Height, 81, kg, 08/02/23 18:16:00 EDT, Dry Weight Start Date: 10/31/23 Status: Ordered ferrous sulfate 325 mg oral enteric coated tablet 325 mg, 1, tablet, By Mouth, Daily, Iron supplement. Do NOT take at same time as Biktarvy., # 90 tablet, Refills 3, Tot. Refills 3, Maintenance, 10/20/23 13:47:00 EST, Route to Pharmacy Electronically, [facility], Partial fill upon pa... Start Date: 10/20/23 Status: Ordered mometasone 100 mcg/inh inhalation aerosol 2 puffs, Inhalation, 2 times a day, rinse mouth and throat after use New inhaler for asthma. Use 2xper day. In addition, continue albuterol as needed for wheezing., # 13 Gm, 5 Refills, Maintenance, 10/05/23 13:07:00 EST, Aerosol, [facility]... Start Date: 10/05/23 Status: Ordered naproxen 500 mg oral delayed release tablet 1 tablet, By Mouth, 2 times a day, PRN NEEDED FOR FEVER/ MUSCLE ACHES, # 60 tablet, 3 Refills, Maintenance, 01/29/24 17:11:00 EDT, [facility], 167, cm, 12/25/23 13:04:00 EST, Height, 81, kg, 08/02/23 18:16:00 EDT, Dry Weight Start Date: 01/29/24 Status: Ordered Ventolin HFA 108 mcg/inh inhalation aerosol with adapter 2 puffs, Inhalation, 4 times a day, PRN NEEDED, WHEEZING/ SHORTNESS OF BREATH., # 8.5 Gm, 0 Refills, Maintenance, 01/29/24 8:41:00 EDT, [facility], 167, cm, 12/25/23 [...] Depression Confirmed Active History of laparoscopic appendectomy, [facility], dr combs 01/21/2020 Confirmed Active Obese class I Confirmed Active [facility] 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, 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 Chua, Confirmed Active Pulmonary infection due [...] Care Nurse Name: Dionne Morton RN Position: [facility] RN Member Role: Primary Care Nurse Name: Renzo Hernandez RN Position: [facility] RN Supv Member Role: Primary Care Nurse Name: Candie Bustamante RN Position: [facility] RN Member Role: Primary Care Nurse Name: La Hodges RN Position: [facility] RN Member Role: Primary Care Nurse Name: Thais Ortiz RN Position: [facility] RN Member Role: Primary Care Nurse Name: Heather Youngblood RN Position: [facility] SN RN Member Role: Primary Care Nurse Name: Palmira Ivey LPN Position: [facility] RN Member Role: Primary Care Nurse Name: Carol Ramirez MD Position: [facility] Physician - Primary Care Member Role: PCP Address: Address: [address] [place] [address]- Care Team Related Persons Name: AMANDA ENGLISH Address: [address] [address] Name: BORIS SLATER
--- OUTSIDE RECORDS SUMMARY | 2024-06-27 11:55 | XMS_ITS | Continuity of Care Document ---
Author Organization [facility] Address [address] [place] [address]- Care Team Providers Care [employer] Roofer Name Role Phone Carol Ramirez MD Primary Care Physician Encounter [facility] [place] Date(s): 11/01/23 - 01/10/[address] [address] Attending Physician: Not on Staff, Attending MD [...] 07/19/24 15:15:00 EDT, 07/25/23 15:15:00 EDT, Suspension, [facility], Partial fill upon patient request if the prescription is for a schedule II o... Start Date: 07/25/23 Stop Date: 07/19/24 Status: Ordered azithromycin 500 mg oral tablet 1 tablet, By Mouth, Daily, # 30 tablet, 2 Refills, Maintenance, 10/31/23 22:32:00 EST, [facility], 167, cm, 08/22/23 13:25:00 EDT, Height, 81, kg, 08/02/23 18:16:00 EDT, Dry Weight Start Date: 10/31/23 Status: Ordered Biktarvy oral tablet 1 tablet, By Mouth, Daily, # 30 tablet, 11 Refills, Maintenance, 07/25/23 15:15:00 EDT, Tablet, [facility], Partial fill upon patient [...] 0 Refills, Maintenance, 12/18/23 13:28:00 EST, Capsule, [facility], Partial fill upon patient request if the prescription... Start Date: 12/18/23 Status: Ordered ethambutol 400 mg oral tablet 3 tablet, By Mouth, Daily, # 90 tablet, 2 Refills, Maintenance, 10/31/23 22:32:00 EST, [facility], 167, cm, 08/22/23 13:25:00 EDT, Height, 81, kg, 08/02/23 18:16:00 EDT, Dry Weight Start Date: 10/31/23 Status: Ordered ferrous sulfate 325 mg oral enteric coated tablet 325 mg, 1, tablet, By Mouth, Daily, Iron supplement. Do NOT take at same time as Biktarvy., # 90 tablet, Refills 3, Tot. Refills 3, Maintenance, 10/20/23 13:47:00 EST, Route to Pharmacy Electronically, [facility], Partial fill upon pa... Start Date: 10/20/23 Status: Ordered mometasone 100 mcg/inh inhalation aerosol 2 puffs, Inhalation, 2 times a day, rinse mouth and throat after use New inhaler for asthma. Use 2xper day. In addition, continue albuterol as needed for wheezing., # 13 Gm, 5 Refills, Maintenance, 10/05/23 13:07:00 EST, Aerosol, [facility] Start Date: 10/05/23 Status: Ordered naproxen 500 mg oral delayed release tablet 1 tablet = 500 mg, By Mouth, 2 times a day, As needed for fever and muscle aches, # 60 tablet, 3 Refills, Maintenance, 08/14/23 13:22:00 EDT, EC Tablet, [facility], Partial fill uponpatient request if the prescription is for a schedu... Start Date: 08/14/23 Status: Ordered Ventolin HFA 108 mcg/inh inhalation aerosol with adapter 2 puffs, Inhalation, 4 times a day, PRN Wheezing/Shortness of Breath, # 1 each, 0 Refills, Maintenance, 12/18/23 13:28:00 EST, Aerosol, [facility], Partial fill upon patient [...] Active History of laparoscopic appendectomy, [facility], dr combs 01/21/2020 Confirmed Active Obese class I Confirmed Active [facility] home care administrator, Liane Chua, Confirmed Active Pulmonary infection due [...] Care Nurse Name: Renzo Hernandez RN Position: [facility] RN Supv Member Role: Primary Care Nurse Name: Candie Bustamante RN Position: [facility] RN Member Role: Primary Care Nurse Name: La Hodges RN Position: [facility] RN Member Role: Primary Care Nurse Name: Thais Ortiz RN Position: [facility] RN Member Role: Primary Care Nurse Name: Yulissa Gonzales RN Position: [facility] RN Member Role: Primary Care Nurse Address: Address: [address] [place] [address]- Name: Heather Youngblood RN Position: [facility] SN RN Member Role: Primary Care Nurse Name: Palmira Ivey LPN Position: [facility] RN Member Role: Primary Care Nurse Name: Carol Ramirez MD Position: [facility] Physician - Primary Care Member Role: PCP Address: Address: [address] [place] [address]- Care Team Related Persons Name: AMANDA ENGLISH Address: [address] [address] Name: BORIS SLATER
--- OUTSIDE RECORDS SUMMARY | 2024-06-27 11:56 | XMS_ITS | Continuity of Care Document ---
Author Organization [facility] Address [address] [place] [address]- Care Team Providers Care Director Of Casino Name Role Phone Ashley HANNON, Carol Primary Care Physician Encounter [facility] Date(s): 10/20/23 - 11/19/[address] [address]- Allergies, Adverse Reactions, Alerts Substance Reaction Severity [...] 07/19/24 15:15:00 EDT, 07/25/23 15:15:00 EDT, Suspension, [facility], Partial fill upon patient request if the prescription is for a schedule II o... Start Date: 07/25/23 Stop Date: 07/19/24 Status: Ordered azithromycin 500 mg oral tablet 1 tablet, By Mouth, Daily, # 30 tablet, 2 Refills, Maintenance, 10/31/23 22:32:00 EST, [facility], 167, cm, 08/22/23 13:25:00 EDT, Height, 81, kg, 08/02/23 18:16:00 EDT, Dry Weight Start Date: 10/31/23 Status: Ordered Biktarvy oral tablet 1 tablet, By Mouth, Daily, # 30 tablet, 11 Refills, Maintenance, 07/25/23 15:15:00 EDT, Tablet, [facility], Partial fill upon patient request if the prescription is for a schedule IIopioid drug., 1 tablet By Mouth Daily,x30 days, 165... Start Date: 07/25/23 Stop Date: 07/19/24 Status: Ordered ethambutol 400 mg oral tablet 3 tablet, By Mouth, Daily, # 90 tablet, 2 Refills, Maintenance, 10/31/23 22:32:00 EST, [facility], 167, cm, 08/22/23 13:25:00 EDT, Height, 81, kg, 08/02/23 18:16:00 EDT, Dry Weight Start Date: 10/31/23 Status: Ordered ferrous sulfate 325 mg oral enteric coated tablet 325 mg, 1, tablet, By Mouth, Daily, Iron supplement. Do NOT take at same time as Biktarvy., # 90 tablet, Refills 3, Tot. Refills 3, Maintenance, 10/20/23 13:47:00 EST, Route to Pharmacy Electronically, [facility], Partial fill upon pa... Start Date: 10/20/23 Status: Ordered mometasone 100 mcg/inh inhalation aerosol 2 puffs, Inhalation, 2 times a day, rinse mouth and throat after use New inhaler for asthma. Use 2xper day. In addition, continue albuterol as needed for wheezing., # 13 Gm, 5 Refills, Maintenance, 10/05/23 13:07:00 EST, Aerosol, [facility] Start Date: 10/05/23 Status: Ordered naproxen 500 mg oral delayed release tablet 1 tablet = 500 mg, By Mouth, 2 times a day, As needed for fever and muscle aches, # 60 tablet, 3 Refills, Maintenance, 08/14/23 13:22:00 EDT, EC Tablet, [facility], Partial fill uponpatient request if the prescription is for a schedu... Start Date: 08/14/23 Status: Ordered Ventolin HFA 108 mcg/inh inhalation aerosol with adapter 2 puffs, Inhalation, 4 times a day, PRN Wheezing/Shortness of Breath, # 1 each, 11 Refills, Maintenance, 04/26/23 15:10:00 EDT, Aerosol, [facility], Partial fill upon [...] Depression Confirmed Active History of laparoscopic appendectomy, [place] dr garret garcia 01/21/2020 Confirmed Active [facility] health care aide, Liane Chua, Confirmed Active Pulmonary [...] Care Nurse Name: Jocelyn Shirley RN Position: [facility] RN Member Role: Primary Care Nurse Name: Rocio Marcial RN Position: [facility] SN RN Member Role: [...] Member Role: Primary Care Nurse Address: Address: [address] [place] [address] Name: Heather Youngblood RN Position: [facility] SN RN Member Role: Primary Care Nurse Name: Palmira Ivey LPN Position: [facility] RN Member Role: Primary Care Nurse Name: Carol Ramirez MD Position: [facility] Physician - Primary Care Member Role: PCP Address: Address: [address] [place] [address]- Care Team Related Persons Name: AMANDA ENGLISH Address: [address] [address] Name: BORIS SLATER
[2024-06-27] MEDS: Ketorolac Tromethamine 15 MG/ML VIAL IVPUSH (12:29)
[2024-06-27] MEDS: cefEPime HCl 1 GM in 0.9 % Sodium Chloride 50 ML IV (12:31)
[2024-06-27] MEDS: Albuterol/Iprat 2.5/0.5MG 3 ML AMPUL.NEB INHALE (12:38)
[2024-06-27 12:39] LABS: Hematocrit 32.7 % (37.0-47.0); Hemoglobin 10.9 g/dl (12.0-16.0); INTERNATIONAL NORM RATIO 1.1 (0.9-1.1); Imm Gran Abs Auto 0.06 X10*3/uL (0.00-0.03); Imm Gran Pct Auto 0.6 % (0.0-0.4); Lymphocytes Absolute Auto 0.7 X10*3/uL (1.2-4.9); Lymphocytes Percent Auto 6.6 % (20-40); MANUAL DIFF FLAG SCAN; Mean Corpuscular HGB Conc 33.3 g/dl (31.0-35.0); Mean Corpuscular Hemoglobin 29.2 pg (27.0-33.0); Mean Corpuscular Volume 87.7 fL (80.0-98.0); Monocytes Absolute Auto 0.4 X10*3/uL (0.1-1.2); Monocytes Percent Auto 3.9 % (2-11); Neutrophils Absolute Auto 9.2 x10*3/uL (2.0-8.3); Neutrophils Percent Auto 88.9 % (45-73); PLT CLUMP 1; Prothrombin Time 13.2 SEC (11.1-13.3); Red Blood Count 3.73 X10*6/uL (4.20-5.50); Red Cell Distribution Width 20.7 % (11.0-16.0); SCAN SMEAR FLAG 1
[2024-06-27 12:42] LABS: Partial Thromboplastin Time 31.2 SEC (26.0-36.8)
[2024-06-27 12:45] LABS: White Blood Count 10.4 X10*3/uL (4.8-10.8)
[2024-06-27 12:49] LABS: Lactic Acid 0.7 mmol/L (0.5-2.0)
[2024-06-27 13:02] LABS: Mean Platelet Volume 10.6 fL (9.4-12.3); Platelet Count 106 X10*3/uL (160-400); SLIDE REVIEW VERIFIED; Troponin-I High Sensitivity 3.4 ng/L (<3.5-17.0)
[2024-06-27 13:43] LABS: Influenza A PCR NEGATIVE (Negative); Influenza B PCR NEGATIVE (Negative); Resp Syncy Virus RNA Qual PCR NEGATIVE (Negative); SARS COV2 PCR INHOUSE NEGATIVE (Negative)
[2024-06-27] MEDS: methylPREDNISolone Sod Succ 125 MG/2 ML VIAL 60 MG IVPUSH (13:51)
[2024-06-27] MEDS: vancomycin HCL 1,500 MG in 0.9 % Sodium Chloride 500 ML 333.33 MG IV (14:01)
[2024-06-27 14:05] LABS: Alanine Aminotransferase 11 U/L (0-31); Albumin Level 3.5 g/dL (3.5-5.0); Alkaline Phosphatase 92 U/L (39-117); Anion Gap 13 (12-20); Aspartate Amino Transferase 17 U/L (5-31); Bilirubin Total 0.5 mg/dL (0.0-1.0); Blood Urea Nitrogen 10 mg/dL (9-16); Calcium 8.2 mg/dL (8.4-10.2); Carbon Dioxide 18 mmol/L (22-29); Chloride 108 mmol/L (96-108); Creatinine Clr Calc Pharmacy 92.2; Estimated Glomerular Filt Rate > 60; Glucose Random 100 mg/dL (60-115); Magnesium 1.5 mg/dL (1.6-2.6); Potassium 2.9 mmol/L (3.3-5.1); Sodium 136 mmol/L (135-145); Total Protein 7.2 g/dL (6.5-8.0)
[2024-06-27] MEDS: ondansetron HCL 4 MG/2 ML VIAL IVPUSH (14:24)
[2024-06-27] MEDS: iohexoL 350 MG/ML 100 ML INFUS..BTL IV (14:38)
[2024-06-27 14:46] LABS: Adenovirus PCR Not Detected (Not Detect.); Bordetella parapertussis PCR Not Detected (Not Detect.); Bordetella pertussis PCR Not Detected (Not Detect.); Chlamydia pneumoniae PCR Not Detected (Not Detect.); Coronavirus 229E PCR Not Detected (Not Detect.); Coronavirus HKU1 PCR Not Detected (Not Detect.); Coronavirus NL63 PCR Not Detected (Not Detect.); Coronavirus OC43 PCR Not Detected (Not Detect.); Human metapneumovirus PCR Not Detected (Not Detect.); Influenza A PCR Not Detected (Not Detect.); Influenza B PCR Not Detected (Not Detect.); Mycoplasma pneumoniae PCR Not Detected (Not Detect.); Parainfluenza 1 PCR Not Detected (Not Detect.); Parainfluenza 2 PCR Not Detected (Not Detect.); Parainfluenza 3 PCR Not Detected (Not Detect.); Parainfluenza 4 PCR Not Detected (Not Detect.); RSV PCR Not Detected (Not Detect.); Rhino/Enterovirus PCR Not Detected (Not Detect.)
[2024-06-27] MEDS: Magnesium Sulfate/D5W 1 GM/100 ML PIGGYBACK IV (14:49)
[2024-06-27] MEDS: Potassium Chloride ER 20 MEQ TAB.ER.PRT PO (14:49)
[2024-06-27] MEDS: SODIUM CHLORIDE 2265 ML IV (14:50)
[2024-06-27 15:40] LABS: SARS-CoV-2 PCR Not Detected (Not Detect.)
[2024-06-27] MEDS: HYDROmorphone HCl 1 MG/ML SYRINGE IVPUSH ×2 (15:57→21:22)
--- NOTE | 2024-06-27 17:18 | PM.IMHP ---
History of Present Illness Date of Service: 06/27/24 Chief Complaint: Dyspnea and cough This is a 33-year-old female with pertinent history of HIV, history of MAC, tobacco use disorder, hidradenitis suppurativa, pulmonary nodules who presents to the emergency department for evaluation of dyspnea and cough. Patient states symptoms started 2 days prior to presentation. She has been having cough with yellowish/greenish sputum production. Also has been having dyspnea which is worse with exertion and pleuritic chest pain. Admits fevers and chills. Patient states she was admitted 1 year ago for similar complaints and diagnosed with lung infection. No nausea, vomiting, abdominal pain, changes in urinary or bowel habits. In the emergency department, patient was found to be septic and imaging with right-sided pneumonia. Review of Systems Constitutional: Constitutional: Reports chills, Reports fatigue and Reports fever(s) Cardiovascular: Cardiovascular: Reports dyspnea on exertion Respiratory: Respiratory: Reports cough, Reports pain with cough and Reports dyspnea on exertion Gastrointestinal: Gastrointestinal: Reports no additional gastrointestinal complaints Genitourinary: Genitourinary: Reports no additional female genitourinary complaints Endocrine: Endocrine: Reports fatigue PMFSH Medical History Fever AIDS History of pulmonary embolus (PE) Hidradenitis suppurativa 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 AIDS Coronavirus infection HIV (human immunodeficiency virus infection) Bronchopneumonia Bronchiectasis CAP (community acquired pneumonia) HIV (human immunodeficiency virus infection) Surgical History History of tubal ligation History of excision of lesion History of appendectomy Social History Household Members: Children Housing: Apartment Do you presently have visiting nurse or other home services: No Alcohol intake: never Patient Tobacco Use Status: Former Tobacco user Tobacco use type: Cigarette Cigarettes Per Day: 8 e-Cigarette/Vaping Use: Never Used Second Hand Smoke Exposure: No Substance Use Type: Marijuana Advance Directives: No Advance Directives Information Provided: Yes service: No Meds Allergies Allergy/AdvReac Type Severity Reaction Status Date / Time sulfamethoxazole Allergy Severe SWELLING Verified 06/27/24 11:38 [From BACTRIM] trimethoprim [From BACTRIM] Allergy Severe SWELLING Verified 06/27/24 11:38 Sulfa (Sulfonamide Allergy Unknown Unknown Verified 06/27/24 11:38 Antibiotics) Home Medications ?Medication ?Instructions ?Recorded ?Confirmed ?Last Taken ?Type albuterol sulfate 90 mcg/actuation 2 puff inhalation Q4H PRN 07/18/22 07/22/23 07/22/23 History aerosol inhaler (ProAir HFA) Shortness Of Breath Or Wheezing bictegravir 50 mg-emtricitabine 1 tab PO DAILY 07/18/22 07/22/23 07/22/23 History 200 mg-tenofovir alafenam 25 mg tablet (Biktarvy) atovaquone 750 mg/5 mL oral 750 mg PO BID 07/09/23 07/22/23 07/22/23 History suspension budesonide-formoterol HFA 160 2 puff inhalation Q6H PRN 07/09/23 07/22/23 07/22/23 History mcg-4.5 mcg/actuation aerosol Shortness Of Breath Or Wheezing inhaler (Symbicort) ethambutol 400 mg tablet 1,200 mg PO DAILY 07/09/23 07/22/23 07/22/23 History Physical Exam Vital Signs and Narrative: Vital Signs: Last Vital Signs Temp 98.2 F 06/27/24 16:00 Pulse 92 06/27/24 16:00 Resp 20 06/27/24 16:00 BP 101/58 L 06/27/24 16:00 Pulse Ox 97 06/27/24 16:00 O2 Del Method Room Air 06/27/24 16:00 BMI result Body Mass Index 27.7 Middle-aged female lying in bed in no distress Neck supple, no JVD Regular rate and rhythm, S1-S2 heard Right-sided crackles appreciated Abdomen soft nontender, no guarding, no rigidity Patient is awake, alert and oriented to self, place, time and person ; no focal motor deficit Psych: Normal mood No pedal edema Results Labs 06/27/24 12:17 06/27/24 13:22 Labs: Laboratory Results - last 24 hr 06/27/24 06/27/24 06/27/24 12:17 12:40 12:46 MCV 87.7 MCH 29.2 MCHC 33.3 RDW 20.7 H Plt Count 106 L D MPV 10.6 Immature Gran % (Auto) 0.6 H Neut % (Auto) 88.9 H Lymph % (Auto) 6.6 L [place] % (Auto) 3.9 Eos % (Auto) 0.0 Baso % (Auto) 0.0 Lymph # (Auto) 0.7 L [place] # (Auto) 0.4 Eos # (Auto) 0.0 Baso # (Auto) 0.0 Abs Immat Gran (auto) 0.06 H Absolute Neuts (auto) 9.2 H Absolute Nucleated RBC 0.000 Nucleated RBC % (auto) 0.0 Smear Tech's Comments VERIFIED PT 13.2 INR 1.1 APTT 31.2 Anion Gap Estim Creat Clear Calc Estimated GFR Random Glucose Lactic Acid 0.7 Calcium Magnesium Total Bilirubin AST ALT Alkaline Phosphatase Troponin I High Sens 3.4 Total Protein Albumin Respiratory Panel Marcum See Note Adenovirus (Rapid PCR) Not Detected B.pert (TEM-PCR) Not Detected B.parapertussis DNA PCR Not Detected C. pneumoniae DNA (PCR) Not Detected Coronavirus OC43 (PCR) Not Detected Coronavirus HKU1 (PCR) Not Detected Coronavirus 229E (PCR) Not Detected Coronavirus NL63 (PCR) Not Detected Human Metapneumovir PCR Not Detected Influenza A (RT-PCR) Not Detected Influenza Type A (PCR) NEGATIVE Influenza B (RT-PCR) Not Detected Influenza Type B (PCR) NEGATIVE M. pneumoniae (PCR) Not Detected Parainfluenza 1 (PCR) Not Detected Parainfluenza 2 (PCR) Not Detected Parainfluenza 3 (PCR) Not Detected Parainfluenza 4 (PCR) Not Detected RSV (PCR) Not Detected RSV RNA Qual (PCR) NEGATIVE Entero/Rhino (PCR) Not Detected SARS-CoV-2 RNA (RT-PCR) NEGATIVE Not Detected 06/27/24 13:22 MCV MCH MCHC RDW Plt Count MPV Immature Gran % (Auto) Neut % (Auto) Lymph % (Auto) [place] % (Auto) Eos % (Auto) Baso % (Auto) Lymph # (Auto) [place] # (Auto) Eos # (Auto) Baso # (Auto) Abs Immat Gran (auto) Absolute Neuts (auto) Absolute Nucleated RBC Nucleated RBC % (auto) Smear Tech's Comments PT INR APTT Anion Gap 13 Estim Creat Clear Calc 92.2 Estimated GFR > 60 Random Glucose 100 Lactic Acid Calcium 8.2 L Magnesium 1.5 L Total Bilirubin 0.5 AST 17 ALT 11 Alkaline Phosphatase 92 Troponin I High Sens Total Protein 7.2 Albumin 3.5 Respiratory Panel Marcum Adenovirus (Rapid PCR) B.pert (TEM-PCR) B.parapertussis DNA PCR C. pneumoniae DNA (PCR) Coronavirus OC43 (PCR) Coronavirus HKU1 (PCR) Coronavirus 229E (PCR) Coronavirus NL63 (PCR) Human Metapneumovir PCR Influenza A (RT-PCR) Influenza Type A (PCR) Influenza B (RT-PCR) Influenza Type B (PCR) M. pneumoniae (PCR) Parainfluenza 1 (PCR) Parainfluenza 2 (PCR) Parainfluenza 3 (PCR) Parainfluenza 4 (PCR) RSV (PCR) RSV RNA Qual (PCR) Entero/Rhino (PCR) SARS-CoV-2 RNA (RT-PCR) Imaging Radiologist's Impressions: Impressions Chest CTA 06/27/24 15:02 IMPRESSION: 1. No evidence of pulmonary emboli. 2. Bibasilar atelectasis with possible new/worsening consolidation/collapse in the posterior right lower lobe. 3. Stable stellate area on top of the minor fissure in the right upper lobe, likely mechelle tissue at the intersection of multiple pleural surfaces. 4. VTE: negative. Assessment and Plan (1) Sepsis: Status: Acute (2) Pneumonia: Status: Acute Plan This is a 33-year-old female with pertinent history of HIV, history of MAC, tobacco use disorder, hidradenitis suppurativa, pulmonary nodules who presents to the emergency department for evaluation of dyspnea and cough. #. Sepsis due to right-sided pneumonia: Resuscitated with IV crystalloids. Initiating empiric broad-spectrum IV antibiotics. Infectious Disease consult, appreciate assistance. Lactic acid and blood culture obtained #. History of MAC: On atovaquone, ethambutol and azithromycin #. HIV: Unknown nurse CD4 count or viral load. Appreciate ID assistance #. Normocytic anemia, chronic #. Hypokalemia: Repleted #. Tobacco use disorder Med rec pending DVT prophylaxis: Lovenox Full code Admit as inpatient and will require two night minimum hospital stay for IV antibiotics (as above), which is not possible in a lesser acute setting. Quality Stroke Does the patient have a stroke diagnosis?: No VTE Prior VTE?: No VTE Risk Level:: Medical - moderate - high VTE Device Contraindication: Treatment Not Indicated VTE Drug Contraindication: N/A - Med Ordered
[2024-06-27] MEDS: Piperacillin Sodium/Tazobactam 4.5 GM in 0.9 % Sodium Chloride 100 ML IV ×2 (18:22→23:49)
[2024-06-27] MEDS: Potassium Chloride Packet 20 MEQ PACKET 40 MEQ PO (18:22)
[2024-06-27] MEDS: Enoxaparin Sodium 40 MG/0.4 ML SYRINGE SUBCUT (18:23)
--- NOTE | 2024-06-27 19:01 | PC.NURSE ---
at approx 1400 BP was low at 80/40 with HR of 94. Dilaudid was held due to BP and provider notified. Fluids were never ordered nor was a sepsis ever ordered
--- NOTE | 2024-06-27 19:05 | PHA.PROG ---
Admission Date/Time: June 27, 2024 17:17 Indication: RESPIRATORY Weight in k.5 kg Adjusted body weight in Kg: [place] body weight in Kg: Obesity Dosing Indication % IBW: Serum Creatinine - Last 168 Hours 06/27/24 13:22 Creatinine 0.89 Estimated CrCl and GFR - Last 168 Hours 06/27/24 13:22 Estim Creat Clear Calc 92.2 Estimated GFR > 60 Vancomycin Loading Dose: 1500 MG Current Vancomycin Dosing Regimen: 1250 MG Q12H Vancomycin Monitoring using AUC goal of 400 - 600 range with trough as surrogate marker: VPQ=193 TROUGH=18.5 Date and Time for next Vancomycin Level to be drawn: 06/28/2024 @2100 Pharmacist Comments on Vancomycin Plan: Vancomycin dosing will take advantage of [employer] as a clinical decision support tool that uses Bayesian modeling to calculate individual patient's pharmacokinetic parameters and forecast the patient's drug concentration time course with the target goal AUC 24 range of 400 - 600 mg/L/hr.
--- NOTE | 2024-06-27 19:52 | PHA.MEDREC ---
Addendum entered by Michelle Gleason RPh 06/27/24 20:27: reviewed by [facility]. Original Note: Pharmacy Consult ? Medication Reconciliation Pharmacy has completed the medication reconciliation. Spoke to patient confirm med list. Patient had her medication with her. Atovaquone 750 mg , Biktarvy , Ethamnutol and symbycort. not sure how compliant she is with her medication because her bottle has a date of 02-20-24 for 30 day supply..
[2024-06-27 20:06] LABS: Appearance Urine Clear; Color Urine Yellow; Glucose Urine UA Negative (Negative); Leukocyte Esterase Urine Negative (Negative); Nitrite Urine Negative (Negative); PH 6.5 (5.0-9.0); UMIC TRIGGER UACC YES; Urine Blood Moderate (2+) (Negative); Urine Ketones Negative (Negative); Urine Protein 30 (1+) mg/dL (Neg-Trace)
[2024-06-27 20:19] LABS: Bacteria Urine None Seen (None Seen); Hyaline Casts Urine 0-2 /LPF (0-2); Squamous Epithelial Cell Urine 0-2 /HPF (0-2); WBC Urine 0-5 /HPF (0-5)
[2024-06-27] MEDS: 0.9 % Sodium Chloride 1,000 ML 80 ML IVCONT (21:16)
--- NOTE | 2024-06-27 22:59 | PC.NURSE ---
Patient arrived from main ED in wheelchair and was brought to room 6 where she independently got to the hospital bed. Right as patient arrived she needed to use bathroom and independently walked to and from the bathroom. Vitals obtained, no needs from patient at this time, no s/s of distress noted, able to maintain airway.
[2024-06-27] MEDS: Acetaminophen 325 MG TABLET 650 MG PO (23:59)
[2024-06-28] VITALS (8 sets, daily range): BP systolic 95–111; BP diastolic 51–71; PULSE 67–110; RESP 16–18; TEMP 36.4–38.7; O2SAT 95–99
[2024-06-28] MEDS: 0.9 % Sodium Chloride Flush 3 ML SYRINGE IVFLUSH ×2 (01:12→21:12)
[2024-06-28] MEDS: vancomycin HCL 1,250 MG in 0.9 % Sodium Chloride 250 ML 166.67 MG IV ×2 (01:12→23:25)
[2024-06-28] MEDS: HYDROmorphone HCl 1 MG/ML SYRINGE IVPUSH ×3 (01:13→11:03)
[2024-06-28] MEDS: Piperacillin Sodium/Tazobactam 4.5 GM in 0.9 % Sodium Chloride 100 ML IV ×4 (05:46→22:44)
[2024-06-28 06:05] LABS: Hematocrit 29.7 % (37.0-47.0); Hemoglobin 9.9 g/dl (12.0-16.0); Mean Corpuscular HGB Conc 33.3 g/dl (31.0-35.0); Mean Corpuscular Hemoglobin 29.8 pg (27.0-33.0); Mean Corpuscular Volume 89.5 fL (80.0-98.0); Mean Platelet Volume 12.2 fL (9.4-12.3); PLT CLUMP 1; Red Blood Count 3.32 X10*6/uL (4.20-5.50); Red Cell Distribution Width 21.6 % (11.0-16.0); WBC ABN SCTR FOR CBC 1
[2024-06-28 06:08] LABS: White Blood Count 8.3 X10*3/uL (4.8-10.8)
[2024-06-28 06:11] LABS: Anion Gap 11 (12-20); Blood Urea Nitrogen 12 mg/dL (9-16); Calcium 7.8 mg/dL (8.4-10.2); Carbon Dioxide 14 mmol/L (22-29); Chloride 119 mmol/L (96-108); Creatinine Clr Calc Pharmacy 126.3; Estimated Glomerular Filt Rate > 60; Glucose Random 116 mg/dL (60-115); Potassium 4.5 mmol/L (3.3-5.1); Sodium 139 mmol/L (135-145)
[2024-06-28 06:27] LABS: Platelet Count 98 X10*3/uL (160-400)
[2024-06-28 06:34] LABS: Band Neutrophils Percent 4 % (3-5); Lymphocytes Absolute Manual 0.2 X10*3/uL (1.2-4.9); Lymphocytes Percent Manual 2 % (20-40); Monocytes Absolute Manual 0.3 X10*3/uL (0.1-1.2); Monocytes Percent Manual 4 % (2-11); Neutrophils Absolute Manual 7.8 X10*3/uL (2.0-8.3); Neutrophils Percent Manual 90 % (45-73)
[2024-06-28 06:35] LABS: Acanthocytes 1+ (0-2) /OIF; Large Platelet PRESENT; Microcytosis 1+ (5-14) /OIF; Ovalocytes 1+ (5-14) /OIF; Platelet Estimate SLIGHTLY DECREASED (NORMAL); Platelet Morphology Comment NOTED; RBC Morphology NOTED; Tear Drop Cells 1+ (0-2) /OIF
[2024-06-28 06:36] LABS: Hypochromasia 1+ (5-14) /OIF; Spherocytes 1+ (0-2) /OIF
[2024-06-28] MEDS: 0.9 % Sodium Chloride 1,000 ML 80 ML IVCONT (08:49)
[2024-06-28] MEDS: Azithromycin 500 MG TABLET PO (08:49)
[2024-06-28] MEDS: Bictegrav/Emtricit/Tenofov Ala TABLET 1 TAB PO (11:03)
[2024-06-28] MEDS: Atovaquone 750 MG/5 ML ORAL.SUSP PO ×2 (11:03→20:06)
[2024-06-28] MEDS: guaiFENesin LA 600 MG TAB.ER.12H PO ×2 (11:29→20:06)
[2024-06-28] MEDS: Benzonatate 100 MG CAPSULE PO ×3 (11:29→20:06)
[2024-06-28] MEDS: Acetaminophen 325 MG TABLET 650 MG PO ×2 (11:29→20:06)
--- NOTE | 2024-06-28 11:57 | P.PNIM_ITS ---
Subjective Subjective Date of Service: 06/28/24 Interval History: seen and evaluated this morning feels little better denies any fever or chills reporting cough and dyspnea Review of Systems Review of Systems: Yes all other systems are reviewed and are negative Physical Exam 2 Vital Signs: Vital Signs: Last Vital Signs Temp 99.2 F 06/28/24 11:21 Pulse 76 06/28/24 10:25 Resp 16 06/28/24 10:25 BP 110/54 L 06/28/24 10:25 Pulse Ox 98 06/28/24 10:25 O2 Del Method Room Air 06/28/24 10:25 BMI result Body Mass Index 27.7 Const: Other: Constitutional : Awake, interactive, not in distress Neck : Normal inspection, Supple Cardiovascular : RRR, no JVP, no lower extremity edema Respiratory : good bilateral air entry, basal RLL crackles, scattered wheezes Gastrointestinal: soft, lax, Normal bowel sounds, Non tender Skin : Warm, Dry Neurological : Alert & oriented x3, No focal deficit Objective Data Active Medications Acetaminophen (Acetaminophen 325 Mg Tablet) 650 mg PO Q6H PRN PRN Reason: Pain, Mild (Pain Scale 1-3), fever or headache Last Admin: 06/28/24 11:29 Dose: 650 mg Documented By: FABY Albuterol Sulfate (Albuterol Sulfate 90 Mcg 8 Gm Inhaler) 2 puff INHALE Q4H PRN PRN Reason: Shortness Of Breath Or Wheezing Atovaquone (Atovaquone 750 Mg/5 Ml Oral.Susp) 750 mg PO BID COUNT INCLUDES [facility] Last Admin: 06/28/24 11:03 Dose: 750 mg Documented By: FABY Azithromycin (Azithromycin 500 Mg Tablet) 500 mg PO DAILY COUNT INCLUDES THE [facility] Last Admin: 06/28/24 08:49 Dose: 500 mg Documented By: EAGLEIMARenea Benzonatate (Benzonatate 100 Mg Capsule) 100 mg PO TID COUNT INCLUDES THE [facility] Last Admin: 06/28/24 11:29 Dose: 100 mg Documented By: FABY Bictegravir/Emtricitabine/Tenofovir (Bictegrav/Emtricit/Tenofov Ala Tablet) 1 tab PO DAILY COUNT INCLUDES [facility] Last Admin: 06/28/24 11:03 Dose: 1 tab Documented By: FABY Calcium Carbonate (Calcium Carbonate 750 Mg Tab.Chew) 750 mg PO Q4H PRN PRN Reason: Heartburn Enoxaparin Sodium (Enoxaparin Sodium 40 Mg/0.4 Ml Syringe) 40 mg SUBCUT Q24H COUNT INCLUDES [facility] Last Admin: 06/27/24 18:23 Dose: 40 mg Documented By: TR Guaifenesin (Guaifenesin La 600 Mg Tab.Er.12h) 600 mg PO BID COUNT INCLUDES [facility] Last Admin: 06/28/24 11:29 Dose: 600 mg Documented By: FABY Hydromorphone HCl (Hydromorphone Hcl 1 Mg/Ml Syringe) 1 mg IVPUSH Q4H PRN; Protocol PRN Reason: Pain, Severe (Pain Scale 7-10) Last Admin: 06/28/24 11:03 Dose: 1 mg Documented By: FABY Piperacillin Sod/Tazobactam (Sod 4.5 gm/ Sodium Chloride) 100 mls @ 200 mls/hr IV Q6H COUNT INCLUDES THE [facility] Last Infusion: 06/28/24 11:36 Dose: Infused Documented By: FABY Vancomycin HCl 1,250 mg/ (Sodium Chloride) 250 mls @ 166.667 mls/hr IV Q12H COUNT INCLUDES THE [facility] Last Infusion: 06/28/24 03:15 Dose: Infused Documented By: ANTCARRILLO Sodium Chloride (Ns) 1,000 mls @ 80 mls/hr IVCONT .[id number] COUNT INCLUDES THE [facility] Last Admin: 06/28/24 08:49 Dose: 80 mls/hr Documented By: EMILIANA Magnesium Hydroxide (Milk Of Magnesia 30 Ml Oral.Susp) 30 ml PO DAILY PRN PRN Reason: Constipation Melatonin (Melatonin 3 Mg Tablet) 6 mg PO BEDTIME PRN PRN Reason: Insomnia Pt Own (Ethambutol (400 Mg Tablet)) 1,200 mg PO DAILY COUNT INCLUDES THE [facility] Ondansetron HCl (Ondansetron Hcl 4 Mg/2 Ml Vial) 4 mg IVPUSH Q8H PRN PRN Reason: Nausea and Vomiting Pharmacy Consult (Consult Rx Vancomycin Dosing) 1 each MISCELLANE DAILY PRN PRN Reason: Consult order Sodium Chloride (0.9 % Sodium Chloride Flush 3 Ml Syringe) 3 ml IVFLUSH QSHIFT COUNT INCLUDES THE [facility] Last Admin: 06/28/24 09:09 Dose: Not Given Documented By: EMILIANA Non-Admin Reason: Previously Administered Labs 06/28/24 05:44 06/28/24 05:44 Labs: Laboratory Results - last 24 hr 06/27/24 06/27/24 06/27/24 12:17 12:40 12:46 MCV 87.7 MCH 29.2 MCHC 33.3 RDW 20.7 H Plt Count 106 L D MPV 10.6 Immature Gran % (Auto) 0.6 H Neut % (Auto) 88.9 H Lymph % (Auto) 6.6 L De[place] % (Auto) 3.9 Eos % (Auto) 0.0 Baso % (Auto) 0.0 Lymph # (Auto) 0.7 L De[place] # (Auto) 0.4 Eos # (Auto) 0.0 Baso # (Auto) 0.0 Abs Immat Gran (auto) 0.06 H Absolute Neuts (auto) 9.2 H Absolute Nucleated RBC 0.000 Nucleated RBC % (auto) 0.0 Neutrophils % (Manual) Band Neutrophils % Lymphocytes % (Manual) Monocytes % (Manual) Abs Neuts (Manual) Lymphocytes # (Manual) Monocytes # (Manual) Platelet Estimate Large Platelets Plt Morphology Comment RBC Morphology Hypochromasia Microcytosis Spherocytes Tear Drop Cells Ovalocytes Acanthocytes (Spur) Smear Tech's Comments VERIFIED PT 13.2 INR 1.1 APTT 31.2 Anion Gap Estim Creat Clear Calc Estimated GFR Random Glucose Lactic Acid 0.7 Calcium Magnesium Total Bilirubin AST ALT Alkaline Phosphatase Troponin I High Sens 3.4 Total Protein Albumin Urine Color Urine Appearance Urine pH Ur Specific [place] Urine Protein Urine Glucose (UA) Urine Ketones Urine Blood Urine Nitrite Ur Leukocyte Esterase Urine RBC Urine WBC Ur Squamous Epith Cells Urine Bacteria Hyaline Casts Lymphocyte Subset Cmmnt Total Lymphocytes % CD4 Cells Absolute CD4 Count CD4/CD8 Ratio % CD8 Cells Absolute CD8 Count Respiratory Panel Marcum See Note Adenovirus (Rapid PCR) Not Detected B.pert (TEM-PCR) Not Detected B.parapertussis DNA PCR Not Detected C. pneumoniae DNA (PCR) Not Detected Coronavirus OC43 (PCR) Not Detected Coronavirus HKU1 (PCR) Not Detected Coronavirus 229E (PCR) Not Detected Coronavirus NL63 (PCR) Not Detected Human Metapneumovir PCR Not Detected Influenza A (RT-PCR) Not Detected Influenza Type A (PCR) NEGATIVE Influenza B (RT-PCR) Not Detected Influenza Type B (PCR) NEGATIVE M. pneumoniae (PCR) Not Detected Parainfluenza 1 (PCR) Not Detected Parainfluenza 2 (PCR) Not Detected Parainfluenza 3 (PCR) Not Detected Parainfluenza 4 (PCR) Not Detected RSV (PCR) Not Detected RSV RNA Qual (PCR) NEGATIVE Entero/Rhino (PCR) Not Detected SARS-CoV-2 RNA (RT-PCR) NEGATIVE Not Detected 06/27/24 06/27/24 06/28/24 13:22 20:00 05:44 MCV 89.5 MCH 29.8 MCHC 33.3 RDW 21.6 H Plt Count 98 L MPV 12.2 Immature Gran % (Auto) Cancelled Neut % (Auto) Cancelled Lymph % (Auto) Cancelled Deuel % (Auto) Cancelled Eos % (Auto) Cancelled Baso % (Auto) Cancelled Lymph # (Auto) Cancelled Deuel # (Auto) Cancelled Eos # (Auto) Cancelled Baso # (Auto) Cancelled Abs Immat Gran (auto) Cancelled Absolute Neuts (auto) Cancelled Absolute Nucleated RBC 0.000 Nucleated RBC % (auto) 0.0 Neutrophils % (Manual) 90 H Band Neutrophils % 4 Lymphocytes % (Manual) 2 L Monocytes % (Manual) 4 Abs Neuts (Manual) 7.8 Lymphocytes # (Manual) 0.2 L Monocytes # (Manual) 0.3 Platelet Estimate SLIGHTLY DECREASED Large Platelets PRESENT Plt Morphology Comment NOTED RBC Morphology NOTED Hypochromasia 1+ (5-14) Microcytosis 1+ (5-14) Spherocytes 1+ (0-2) Tear Drop Cells 1+ (0-2) Ovalocytes 1+ (5-14) Acanthocytes (Spur) 1+ (0-2) Smear Tech's Comments PT INR APTT Anion Gap 13 11 L Estim Creat Clear Calc 92.2 126.3 Estimated GFR > 60 > 60 Random Glucose 100 116 H Lactic Acid Calcium 8.2 L 7.8 L Magnesium 1.5 L Total Bilirubin 0.5 AST 17 ALT 11 Alkaline Phosphatase 92 Troponin I High Sens Total Protein 7.2 Albumin 3.5 Urine Color Yellow Urine Appearance Clear Urine pH 6.5 Ur Specific [place] 1.020 Urine Protein 30 (1+) H Urine Glucose (UA) Negative Urine Ketones Negative Urine Blood Moderate (2+) H Urine Nitrite Negative Ur Leukocyte Esterase Negative Urine RBC 6-10 H Urine WBC 0-5 Ur Squamous Epith Cells 0-2 Urine Bacteria None Seen Hyaline Casts 0-2 Lymphocyte Subset Cmmnt Cancelled Total Lymphocytes Cancelled % CD4 Cells Cancelled Absolute CD4 Count Cancelled CD4/CD8 Ratio Cancelled % CD8 Cells Cancelled Absolute CD8 Count Cancelled Respiratory Panel Marcum Adenovirus (Rapid PCR) B.pert (TEM-PCR) B.parapertussis DNA PCR C. pneumoniae DNA (PCR) Coronavirus OC43 (PCR) Coronavirus HKU1 (PCR) Coronavirus 229E (PCR) Coronavirus NL63 (PCR) Human Metapneumovir PCR Influenza A (RT-PCR) Influenza Type A (PCR) Influenza B (RT-PCR) Influenza Type B (PCR) M. pneumoniae (PCR) Parainfluenza 1 (PCR) Parainfluenza 2 (PCR) Parainfluenza 3 (PCR) Parainfluenza 4 (PCR) RSV (PCR) RSV RNA Qual (PCR) Entero/Rhino (PCR) SARS-CoV-2 RNA (RT-PCR) Microbiology Microbiology Results: Microbiology 06/28/24 08:56 Gram Stain - Final Sputum - Expectorated Assessment and Plan (1) Right lower lobe pneumonia: Status: Acute (2) Pneumonia: Status: Acute (3) Sepsis: Status: Acute Plan This is a 33-year-old female with pertinent history of HIV, history of MAC, tobacco use disorder, hidradenitis suppurativa, pulmonary nodules who presents to the emergency department for evaluation of dyspnea and cough. # Sepsis due to right-sided pneumonia DC IV crystalloids Pending blood cultures Continue broad-spectrum IV antibiotics. Infectious Disease consult follow Vancomycin trough # History of MAC: On atovaquone, ethambutol and azithromycin # HIV, check CD4 count, continue Biktarvy # Normocytic anemia, chronic # Hypokalemia: Repleted and corrected # Tobacco use disorder, advised to quit smoking DVT prophylaxis: Lovenox Full code Admit as inpatient and will require overnight minimum hospital stay for IV antibiotics (as above), which is not possible in a lesser acute setting. Quality Stroke Does the patient have a stroke diagnosis?: No VTE Prior VTE?: No VTE Risk Level:: Medical - moderate - high VTE Device Contraindication: Treatment Not Indicated VTE Drug Contraindication: N/A - Med Ordered
[2024-06-28] MEDS: vancomycin HCL 1,250 MG in 0.9 % Sodium Chloride 250 ML 166.66 MG IV (13:05)
[2024-06-28] MEDS: oxyCODONE HCl Immed Release 5 MG TABLET PO ×2 (15:03→21:09)
[2024-06-28] MEDS: Enoxaparin Sodium 40 MG/0.4 ML SYRINGE SUBCUT (17:36)
[2024-06-28] MEDS: ondansetron HCL 4 MG/2 ML VIAL IVPUSH (20:56)
[2024-06-28] MEDS: Lactated Ringers 1,000 ML 999 ML IV (21:11)
[2024-06-28 21:48] LABS: Lactic Acid 0.9 mmol/L (0.5-2.0)
[2024-06-28 21:50] LABS: Vancomycin Random 16.9 mcg/mL (15-20)
[2024-06-29] MEDS: Acetaminophen 325 MG TABLET 650 MG PO ×3 (02:00→20:06)
[2024-06-29] MEDS: oxyCODONE HCl Immed Release 5 MG TABLET PO ×3 (03:09→21:50)
[2024-06-29 03:36] VITALS: BP 102/53; PULSE 78; RESP 14; TEMP 36.1; O2SAT 94
[2024-06-29] MEDS: Piperacillin Sodium/Tazobactam 4.5 GM in 0.9 % Sodium Chloride 100 ML IV ×4 (04:53→22:30)
[2024-06-29 07:03] LABS: Hematocrit 30.9 % (37.0-47.0); Hemoglobin 9.7 g/dl (12.0-16.0); Mean Corpuscular HGB Conc 31.4 g/dl (31.0-35.0); Mean Corpuscular Hemoglobin 28.6 pg (27.0-33.0); Mean Corpuscular Volume 91.2 fL (80.0-98.0); Mean Platelet Volume 12.4 fL (9.4-12.3); PLT CLUMP 1; Red Blood Count 3.39 X10*6/uL (4.20-5.50)
[2024-06-29 07:14] VITALS: BP 98/57; PULSE 76; RESP 18; TEMP 37.2; O2SAT 97
[2024-06-29 07:27] LABS: Anion Gap 9 (12-20); Blood Urea Nitrogen 7 mg/dL (9-16); Carbon Dioxide 19 mmol/L (22-29); Chloride 115 mmol/L (96-108); Estimated Glomerular Filt Rate > 60; Glucose Random 85 mg/dL (60-115); Potassium 3.9 mmol/L (3.3-5.1); Sodium 139 mmol/L (135-145)
[2024-06-29 07:31] LABS: PLT ABN DIST 1; Platelet Count 120 X10*3/uL (160-400); White Blood Count 4.3 X10*3/uL (4.8-10.8)
[2024-06-29] MEDS: Atovaquone 750 MG/5 ML ORAL.SUSP PO ×2 (07:40→20:01)
[2024-06-29] MEDS: Azithromycin 500 MG TABLET PO (07:41)
[2024-06-29] MEDS: Benzonatate 100 MG CAPSULE PO ×3 (07:41→20:04)
[2024-06-29] MEDS: 0.9 % Sodium Chloride Flush 3 ML SYRINGE IVFLUSH ×3 (07:41→20:14)
[2024-06-29] MEDS: guaiFENesin LA 600 MG TAB.ER.12H PO ×2 (07:41→20:13)
[2024-06-29] MEDS: Bictegrav/Emtricit/Tenofov Ala TABLET 1 TAB PO (07:41)
[2024-06-29] MEDS: ondansetron HCL 4 MG/2 ML VIAL IVPUSH ×2 (08:44→19:58)
--- NOTE | 2024-06-29 09:36 | HO.PM.IMPN ---
Subjective Subjective Date of Service: 06/29/24 Interval History: seen and evaluated this morning feels worse became septic overnight reporting cough and dyspnea with right sided chest pain Review of Systems Review of Systems: Yes all other systems are reviewed and are negative Physical Exam Vital Signs: Vital Signs: Last Vital Signs Temp 99.0 F 06/29/24 07:14 Pulse 76 06/29/24 07:14 Resp 18 06/29/24 07:14 BP 98/57 L 06/29/24 07:14 Pulse Ox 97 06/29/24 07:14 O2 Del Method Room Air 06/29/24 07:14 BMI result Body Mass Index 27.7 Const: Other: Constitutional : Awake, interactive, not in distress Neck : Normal inspection, Supple Cardiovascular : RRR, no JVP, no lower extremity edema Respiratory : good bilateral air entry, basal RLL crackles, scattered wheezes Gastrointestinal: soft, lax, Normal bowel sounds, Non tender Skin : Warm, Dry Neurological : Alert & oriented x3, No focal deficit Objective Data Active Medications Acetaminophen (Acetaminophen 325 Mg Tablet) 650 mg PO Q6H PRN PRN Reason: Pain, Mild (Pain Scale 1-3), fever or headache Last Admin: 06/29/24 07:45 Dose: 650 mg Documented By: LUIS Albuterol Sulfate (Albuterol Sulfate 90 Mcg 8 Gm Inhaler) 2 puff INHALE Q4H PRN PRN Reason: Shortness Of Breath Or Wheezing Atovaquone (Atovaquone 750 Mg/5 Ml Oral.Susp) 750 mg PO BID [facility] Last Admin: 06/29/24 07:40 Dose: 750 mg Documented By: LUIS Azithromycin (Azithromycin 500 Mg Tablet) 500 mg PO DAILY [facility] Last Admin: 06/29/24 07:41 Dose: 500 mg Documented By: LUIS Benzonatate (Benzonatate 100 Mg Capsule) 100 mg PO TID [facility] Last Admin: 06/29/24 07:41 Dose: 100 mg Documented By: LUIS Bictegravir/Emtricitabine/Tenofovir (Bictegrav/Emtricit/Tenofov Ala Tablet) 1 tab PO DAILY [facility] Last Admin: 06/29/24 07:41 Dose: 1 tab Documented By: LUIS Calcium Carbonate (Calcium Carbonate 750 Mg Tab.Chew) 750 mg PO Q4H PRN PRN Reason: Heartburn Enoxaparin Sodium (Enoxaparin Sodium 40 Mg/0.4 Ml Syringe) 40 mg SUBCUT Q24H [facility] Last Admin: 06/28/24 17:36 Dose: 40 mg Documented By: FABY Guaifenesin (Guaifenesin La 600 Mg Tab.Er.12h) 600 mg PO BID [facility] Last Admin: 06/29/24 07:41 Dose: 600 mg Documented By: LUIS Piperacillin Sod/Tazobactam (Sod 4.5 gm/ Sodium Chloride) 100 mls @ 200 mls/hr IV Q6H [facility] Last Infusion: 06/29/24 05:23 Dose: Infused Documented By: VIVIAN Vancomycin HCl 1,250 mg/ (Sodium Chloride) 250 mls @ 166.667 mls/hr IV Q12H [facility] Last Infusion: 06/29/24 00:55 Dose: Infused Documented By: VIVIAN Magnesium Hydroxide (Milk Of Magnesia 30 Ml Oral.Susp) 30 ml PO DAILY PRN PRN Reason: Constipation Melatonin (Melatonin 3 Mg Tablet) 6 mg PO BEDTIME PRN PRN Reason: Insomnia Pt Own (Ethambutol (400 Mg Tablet)) 1,200 mg PO DAILY [facility] Last Admin: 06/29/24 07:41 Dose: 1,200 mg Documented By: LUIS Ondansetron HCl (Ondansetron Hcl 4 Mg/2 Ml Vial) 4 mg IVPUSH Q8H PRN PRN Reason: Nausea and Vomiting Last Admin: 06/29/24 08:44 Dose: 4 mg Documented By: LUIS Oxycodone HCl (Oxycodone Hcl Immed Release 5 Mg Tablet) 5 mg PO Q6H PRN PRN Reason: Pain, Severe (Pain Scale 7-10) Last Admin: 06/29/24 09:17 Dose: 5 mg Documented By: LUIS Pharmacy Consult (Consult Rx Vancomycin Dosing) 1 each MISCELLANE DAILY PRN PRN Reason: Consult order Sodium Chloride (0.9 % Sodium Chloride Flush 3 Ml Syringe) 3 ml IVFLUSH QSHIFT [facility] Last Admin: 06/29/24 07:41 Dose: 3 ml Documented By: LUIS Labs 06/29/24 06:23 06/29/24 06:23 Labs: Laboratory Results - last 24 hr 06/28/24 06/29/24 21:23 06:23 MCV 91.2 MCH 28.6 MCHC 31.4 RDW 22.0 H Plt Count 120 L MPV 12.4 H Absolute Nucleated RBC 0.000 Nucleated RBC % (auto) 0.0 Anion Gap 9 L Estim Creat Clear Calc 108.0 Estimated GFR > 60 Random Glucose 85 Lactic Acid 0.9 Calcium 8.0 L Random Vancomycin 16.9 Microbiology Microbiology Results: Microbiology 06/27/24 12:40 Blood Culture - Preliminary Blood - Venous No growth after 24 hours. 06/27/24 12:17 Blood Culture - Preliminary Blood - Venous No growth after 24 hours. 06/28/24 08:56 Gram Stain - Final Sputum - Expectorated Assessment and Plan (1) Right lower lobe pneumonia: Status: Acute (2) Sepsis: Status: Acute Plan This is a 33-year-old female with pertinent history of HIV, history of MAC, tobacco use disorder, hidradenitis suppurativa, pulmonary nodules who presents to the emergency department for evaluation of dyspnea and cough. # Sepsis due to right-sided pneumonia complicated with chest pain Became septic again overnight repeat CXR Normal Lactate New blood cultures sent and pending Start LR Continue broad-spectrum IV antibiotics of Vancomycin and Zosyn Infectious Disease consult follow Vancomycin trough Pulm eval Morphine and Oxycodone PRN for pain # History of MAC: On atovaquone, ethambutol and azithromycin # HIV, check CD4 count, continue Biktarvy # Normocytic anemia, chronic # Hypokalemia: Repleted and corrected # Tobacco use disorder, advised to quit smoking DVT prophylaxis: Lovenox Full code Admit as inpatient and will require overnight minimum hospital stay for IV antibiotics (as above), which is not possible in a lesser acute setting. Quality Stroke Does the patient have a stroke diagnosis?: No VTE Prior VTE?: No VTE Risk Level:: Medical - moderate - high VTE Device Contraindication: Treatment Not Indicated VTE Drug Contraindication: N/A - Med Ordered
[2024-06-29] MEDS: Lactated Ringers 1,000 ML 80 ML IVCONT ×2 (10:26→22:23)
[2024-06-29] MEDS: vancomycin HCL 1,250 MG in 0.9 % Sodium Chloride 250 ML 166.67 MG IV ×2 (10:26→23:00)
[2024-06-29] MEDS: Morphine Sulfate 2 MG/ML CARTRIDGE IVPUSH ×3 (10:27→20:04)
--- NOTE | 2024-06-29 15:05 | MHC.CM.PN ---
PT REPORTS SHE LIVES WITH HER CHILDREN AND IS INDEPENDENT WITH CARE AND MOBILITY SHE DECLINES TO COMPLETE A HCP PCP: JAMIE MARTINEZ DCP: HOME NO SERVICES VIA PRIVATE TRANSPORT
[2024-06-29 15:41] VITALS: BP 121/71; PULSE 94; RESP 18; TEMP 37.4; O2SAT 96
[2024-06-29] MEDS: Enoxaparin Sodium 40 MG/0.4 ML SYRINGE SUBCUT (17:01)
[2024-06-29 19:41] VITALS: BP 117/77; PULSE 87; RESP 16; TEMP 38; O2SAT 96
--- NOTE | 2024-06-29 20:23 | PC.NURSE ---
pt temperature at 100.4, tylenol given, provider made aware.
[2024-06-29 21:06] VITALS: TEMP 37.4
[2024-06-29 21:29] LABS: Vancomycin Random 13.2 mcg/mL (15-20)
--- NOTE | 2024-06-30 00:52 | W.PM.IDCN ---
History of Present Illness Data of Consult Service Date: 06/29/24 Requesting physician: Juaquin Chery Primary Care Provider: Carol Ramirez MD HPI Reason for consult: right chest pain,rul She presents with cough and wheezing and 7/10 chest pain so was not able to be seen at her PCP,Dr Carol Ramirez office due to cardiac concerns with chest pain. She has some right lung consolidation but no effusion mentioned. She has fever now 8/9 to 101.7 and feels ill She has asthma. Review of Systems Review of Systems: Yes all other systems are reviewed and are negative Respiratory: Respiratory: Reports chest congestion and Reports cough PMFSH Past Medical History Medical History Fever AIDS History of pulmonary embolus (PE) Hidradenitis suppurativa 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 AIDS Coronavirus infection HIV (human immunodeficiency virus infection) Bronchopneumonia Bronchiectasis CAP (community acquired pneumonia) HIV (human immunodeficiency virus infection) Family History Family history: reviewed and not pertinent Surgical History Surgical History History of tubal ligation History of excision of lesion History of appendectomy Social History Social History Household Members: Children Housing: Apartment Do you presently have visiting nurse or other home services: No Alcohol intake: never Patient Tobacco Use Status: Former Tobacco user Tobacco use type: Cigarette Cigarettes Per Day: 8 Smoked in Last 30 Days: No e-Cigarette/Vaping Use: Never Used Second Hand Smoke Exposure: No Use of substances other than those prescribed or required for medical reasons: Yes Substance Use Type: Marijuana Substance Use Frequency: Daily Last Used Substance: Days (ago) Currently Displaying Signs/Symptoms of Drug Intoxication Withdrawal: No Have you been hit, kicked, punched, or otherwise hurt by someone within the past year? If so, by whom?: No Do you feel safe in your current relationship?: No Current Relationship Is there a partner from a previous relationship who is making you feel unsafe now?: No Are you made to feel afraid or neglected: No Advance Directives: No Advance Directives Information Provided: Yes Do you have a plan to hurt others: No Plan Recently lost weight without trying: No Eating poorly because of decreased appetite: No Nutrition Risks: No Nutritional Risk Patient : No : No Poor oral hygiene: No service: No Meds Allergies Allergy/AdvReac Type Severity Reaction Status Date / Time sulfamethoxazole Allergy Severe SWELLING Verified 06/27/24 11:38 [From BACTRIM] trimethoprim [From BACTRIM] Allergy Severe SWELLING Verified 06/27/24 11:38 Sulfa (Sulfonamide Allergy Unknown Unknown Verified 06/27/24 11:38 Antibiotics) Active Medications: Current Medications Acetaminophen (Acetaminophen 325 Mg Tablet) 650 mg PO Q6H PRN PRN Reason: Pain, Mild (Pain Scale 1-3), fever or headache Last Admin: 06/29/24 20:06 Dose: 650 mg Albuterol Sulfate (Albuterol Sulfate 90 Mcg 8 Gm Inhaler) 2 puff INHALE Q4H PRN PRN Reason: Shortness Of Breath Or Wheezing Atovaquone (Atovaquone 750 Mg/5 Ml Oral.Susp) 750 mg PO BID [facility] Last Admin: 06/29/24 20:01 Dose: 750 mg Azithromycin (Azithromycin 500 Mg Tablet) 500 mg PO DAILY [facility] Last Admin: 06/29/24 07:41 Dose: 500 mg Benzonatate (Benzonatate 100 Mg Capsule) 100 mg PO TID [facility] Last Admin: 06/29/24 20:04 Dose: 100 mg Bictegravir/Emtricitabine/Tenofovir (Bictegrav/Emtricit/Tenofov Ala Tablet) 1 tab PO DAILY [facility] Last Admin: 06/29/24 07:41 Dose: 1 tab Calcium Carbonate (Calcium Carbonate 750 Mg Tab.Chew) 750 mg PO Q4H PRN PRN Reason: Heartburn Enoxaparin Sodium (Enoxaparin Sodium 40 Mg/0.4 Ml Syringe) 40 mg SUBCUT Q24H [facility] Last Admin: 06/29/24 17:01 Dose: 40 mg Guaifenesin (Guaifenesin La 600 Mg Tab.Er.12h) 600 mg PO BID [facility] Last Admin: 06/29/24 20:13 Dose: 600 mg Piperacillin Sod/Tazobactam (Sod 4.5 gm/ Sodium Chloride) 100 mls @ 200 mls/hr IV Q6H [facility] Last Infusion: 06/29/24 23:00 Dose: Infused Vancomycin HCl 1,250 mg/ (Sodium Chloride) 250 mls @ 166.667 mls/hr IV Q12H [facility] Last Infusion: 06/30/24 00:30 Dose: Infused Lactated Ringer's (Lr) 1,000 mls @ 80 mls/hr IVCONT .[id number] [facility] Last Infusion: 06/29/24 22:23 Dose: 0 mls/hr Magnesium Hydroxide (Milk Of Magnesia 30 Ml Oral.Susp) 30 ml PO DAILY PRN PRN Reason: Constipation Melatonin (Melatonin 3 Mg Tablet) 6 mg PO BEDTIME PRN PRN Reason: Insomnia Morphine Sulfate (Morphine Sulfate 2 Mg/Ml Cartridge) 2 mg IVPUSH Q4H PRN; Protocol PRN Reason: Pain, Severe (Pain Scale 7-10) Last Admin: 06/29/24 20:04 Dose: 2 mg Pt Own (Ethambutol (400 Mg Tablet)) 1,200 mg PO DAILY [facility] Last Admin: 06/29/24 07:41 Dose: 1,200 mg Ondansetron HCl (Ondansetron Hcl 4 Mg/2 Ml Vial) 4 mg IVPUSH Q8H PRN PRN Reason: Nausea and Vomiting Last Admin: 06/29/24 19:58 Dose: 4 mg Oxycodone HCl (Oxycodone Hcl Immed Release 5 Mg Tablet) 5 mg PO Q6H PRN PRN Reason: Pain, Moderate(Pain Scale 4-6) Last Admin: 06/29/24 21:50 Dose: 5 mg Pharmacy Consult (Consult Rx Vancomycin Dosing) 1 each MISCELLANE DAILY PRN PRN Reason: Consult order Sodium Chloride (0.9 % Sodium Chloride Flush 3 Ml Syringe) 3 ml IVFLUSH QSHIFT [facility] Last Admin: 06/29/24 20:14 Dose: 3 ml Home Medications ?Medication ?Instructions ?Recorded ?Confirmed ?Last Taken ?Type bictegravir 50 mg-emtricitabine 1 tab PO DAILY 07/18/22 06/27/24 06/27/24 History 200 mg-tenofovir alafenam 25 mg tablet (Biktarvy) atovaquone 750 mg/5 mL oral 750 mg PO BID 07/09/23 06/27/24 06/27/24 History suspension budesonide-formoterol HFA 160 2 puff inhalation Q6H PRN 07/09/23 06/27/24 06/27/24 History mcg-4.5 mcg/actuation aerosol Shortness Of Breath Or Wheezing inhaler (Symbicort) ethambutol 400 mg tablet 1,200 mg PO DAILY 07/09/23 06/27/24 06/27/24 History albuterol sulfate 90 mcg/actuation 2 puff inhalation Q4-6H PRN 06/27/24 06/27/24 06/27/24 History aerosol inhaler (Ventolin HFA) Shortness Of Breath Or Wheezing azithromycin 500 mg tablet 500 mg PO DAILY 06/27/24 06/27/24 06/27/24 History Physical Exam Vital Signs: Vital Signs: Last Vital Signs Temp 99.3 F 06/29/24 21:06 Pulse 87 06/29/24 19:41 Resp 16 06/29/24 19:41 BP 117/77 06/29/24 19:41 Pulse Ox 96 06/29/24 19:41 O2 Del Method Room Air 06/29/24 19:41 BMI result Body Mass Index 27.7 Resp: Other: wheezes throughout Results Labs 06/29/24 06:23 06/29/24 06:23 Labs: Short CBC 06/29/24 Range/Units 06:23 WBC 4.3 L (4.8-10.8) X10*3/uL Hgb 9.7 L (12.0-16.0) g/dl Hct 30.9 L (37.0-47.0) % Plt Count 120 L (160-400) X10*3/uL BMP 06/29/24 06:23 Sodium 139 Potassium 3.9 Chloride 115 H Carbon Dioxide 19 L BUN 7 L Creatinine 0.76 Calcium 8.0 L Microbiology Microbiology Results: Microbiology 06/28/24 21:23 Blood - Venous Blood Culture - Preliminary No growth after 24 hours. 06/28/24 21:23 Blood - Venous Blood Culture - Preliminary No growth after 24 hours. 06/27/24 12:40 Blood - Venous Blood Culture - Preliminary No growth after 48 hours. 06/27/24 12:17 Blood - Venous Blood Culture - Preliminary No growth after 48 hours. 06/28/24 08:56 Sputum - Expectorated Gram Stain - Final 06/28/24 08:56 Sputum - Expectorated Sputum Culture - Preliminary Culture in progress. Assessment and Plan (1) Right lower lobe pneumonia: Status: Acute (2) Pneumonia: Status: Acute (3) Sepsis: Status: Acute Plan She has worsening temperature and symptoms in hospital. She has known DEANGELO. She has asthma. She has CD4 count reported as undetectable which is AIDS,but reports taking Biktarvy. Evaluate PJP ( pending PCR) Would continue Zosyn and Vancomycin agree and agree Atovaquone for AIDS (undetectable CD4 count) and sepsis concern Would continue Ethambutol and Zmax for DEANGELO if team at [facility] is doing this. IV antibiotics until afebrile and better 24-48 hours. Continue Biktaryv. Check cryptococcal antigen.
[2024-06-30 03:26] VITALS: BP 102/55; PULSE 62; RESP 16; TEMP 36.8; O2SAT 95
[2024-06-30] MEDS: Piperacillin Sodium/Tazobactam 4.5 GM in 0.9 % Sodium Chloride 100 ML IV ×3 (04:43→16:44)
[2024-06-30 07:17] LABS: Anion Gap 12 (12-20); Blood Urea Nitrogen 5 mg/dL (9-16); Calcium 8.2 mg/dL (8.4-10.2); Carbon Dioxide 18 mmol/L (22-29); Chloride 113 mmol/L (96-108); Creatinine Clr Calc Pharmacy 106.6; Estimated Glomerular Filt Rate > 60; Glucose Random 78 mg/dL (60-115); Potassium 3.5 mmol/L (3.3-5.1); Sodium 139 mmol/L (135-145)
[2024-06-30 07:18] LABS: Hematocrit 29.3 % (37.0-47.0); Hemoglobin 9.7 g/dl (12.0-16.0); Mean Corpuscular HGB Conc 33.1 g/dl (31.0-35.0); PLT CLUMP 1
[2024-06-30 07:20] LABS: Mean Corpuscular Hemoglobin 29.8 pg (27.0-33.0); Mean Corpuscular Volume 89.9 fL (80.0-98.0); Red Blood Count 3.26 X10*6/uL (4.20-5.50); Red Cell Distribution Width 21.1 % (11.0-16.0)
[2024-06-30 07:22] LABS: PLT ABN DIST 1; White Blood Count 2.5 X10*3/uL (4.8-10.8)
[2024-06-30 07:39] LABS: Platelet Count 131 X10*3/uL (160-400)
[2024-06-30 07:56] VITALS: BP 120/62; PULSE 77; RESP 18; TEMP 36.2; O2SAT 92
[2024-06-30] MEDS: Morphine Sulfate 2 MG/ML CARTRIDGE IVPUSH ×2 (08:48→16:06)
[2024-06-30] MEDS: Azithromycin 500 MG TABLET PO (08:48)
[2024-06-30] MEDS: Atovaquone 750 MG/5 ML ORAL.SUSP PO ×2 (08:48→19:33)
[2024-06-30] MEDS: Benzonatate 100 MG CAPSULE PO ×3 (08:48→19:33)
[2024-06-30] MEDS: guaiFENesin LA 600 MG TAB.ER.12H PO ×2 (08:48→19:33)
[2024-06-30] MEDS: Bictegrav/Emtricit/Tenofov Ala TABLET 1 TAB PO (08:48)
[2024-06-30] MEDS: vancomycin HCL 1,250 MG in 0.9 % Sodium Chloride 250 ML 166.67 MG IV ×2 (10:14→22:38)
[2024-06-30] MEDS: oxyCODONE HCl Immed Release 5 MG TABLET PO ×2 (10:17→20:24)
[2024-06-30] MEDS: Lactated Ringers 1,000 ML 80 ML IVCONT (12:15)
--- NOTE | 2024-06-30 12:35 | P.PNIM_ITS ---
Subjective Subjective Date of Service: 06/30/24 Interval History: seen and evaluated this morning feels little better improving cough and dyspnea with right sided chest pain still spiking fevers pending cultures Review of Systems Review of Systems: Yes all other systems are reviewed and are negative Physical Exam 2 Vital Signs: Vital Signs: Last Vital Signs Temp 97.1 F 06/30/24 07:56 Pulse 77 06/30/24 07:56 Resp 18 06/30/24 07:56 BP 120/62 06/30/24 07:56 Pulse Ox 92 06/30/24 07:56 O2 Del Method Room Air 06/30/24 07:56 BMI result Body Mass Index 27.7 Const: Other: Constitutional : Awake, interactive, not in distress Neck : Normal inspection, Supple Cardiovascular : RRR, no JVP, no lower extremity edema Respiratory : good bilateral air entry, basal RLL crackles, scattered wheezes Gastrointestinal: soft, lax, Normal bowel sounds, Non tender Skin : Warm, Dry Neurological : Alert & oriented x3, No focal deficit Objective Data Active Medications Acetaminophen (Acetaminophen 325 Mg Tablet) 650 mg PO Q6H PRN PRN Reason: Pain, Mild (Pain Scale 1-3), fever or headache Last Admin: 06/29/24 20:06 Dose: 650 mg Documented By: VIVIAN Albuterol Sulfate (Albuterol Sulfate 90 Mcg 8 Gm Inhaler) 2 puff INHALE Q4H PRN PRN Reason: Shortness Of Breath Or Wheezing Atovaquone (Atovaquone 750 Mg/5 Ml Oral.Susp) 750 mg PO BID [facility] Last Admin: 06/30/24 08:48 Dose: 750 mg Documented By: LUIS Azithromycin (Azithromycin 500 Mg Tablet) 500 mg PO DAILY [facility] Last Admin: 06/30/24 08:48 Dose: 500 mg Documented By: LUIS Benzonatate (Benzonatate 100 Mg Capsule) 100 mg PO TID [facility] Last Admin: 06/30/24 08:48 Dose: 100 mg Documented By: LUIS Bictegravir/Emtricitabine/Tenofovir (Bictegrav/Emtricit/Tenofov Ala Tablet) 1 tab PO DAILY [facility] Last Admin: 06/30/24 08:48 Dose: 1 tab Documented By: LUIS Calcium Carbonate (Calcium Carbonate 750 Mg Tab.Chew) 750 mg PO Q4H PRN PRN Reason: Heartburn Enoxaparin Sodium (Enoxaparin Sodium 40 Mg/0.4 Ml Syringe) 40 mg SUBCUT Q24H [facility] Last Admin: 06/29/24 17:01 Dose: 40 mg Documented By: LUIS Guaifenesin (Guaifenesin La 600 Mg Tab.Er.12h) 600 mg PO BID [facility] Last Admin: 06/30/24 08:48 Dose: 600 mg Documented By: LUIS Piperacillin Sod/Tazobactam (Sod 4.5 gm/ Sodium Chloride) 100 mls @ 200 mls/hr IV Q6H [facility] Last Infusion: 06/30/24 12:17 Dose: Infused Documented By: LUIS Vancomycin HCl 1,250 mg/ (Sodium Chloride) 250 mls @ 166.667 mls/hr IV Q12H [facility] Last Infusion: 06/30/24 11:47 Dose: Infused Documented By: LUIS Lactated Ringer's (Lr) 1,000 mls @ 80 mls/hr IVCONT .[id number] [facility] Stop: 06/30/24 18:00 Last Admin: 06/30/24 12:15 Dose: 80 mls/hr Documented By: LUIS Magnesium Hydroxide (Milk Of Magnesia 30 Ml Oral.Susp) 30 ml PO DAILY PRN PRN Reason: Constipation Melatonin (Melatonin 3 Mg Tablet) 6 mg PO BEDTIME PRN PRN Reason: Insomnia Morphine Sulfate (Morphine Sulfate 2 Mg/Ml Cartridge) 2 mg IVPUSH Q4H PRN; Protocol PRN Reason: Pain, Severe (Pain Scale 7-10) Last Admin: 06/30/24 08:48 Dose: 2 mg Documented By: LUIS Pt Own (Ethambutol (400 Mg Tablet)) 1,200 mg PO DAILY [facility] Last Admin: 06/30/24 08:47 Dose: 1,200 mg Documented By: LUIS Ondansetron HCl (Ondansetron Hcl 4 Mg/2 Ml Vial) 4 mg IVPUSH Q8H PRN PRN Reason: Nausea and Vomiting Last Admin: 06/29/24 19:58 Dose: 4 mg Documented By: VIVIAN Oxycodone HCl (Oxycodone Hcl Immed Release 5 Mg Tablet) 5 mg PO Q6H PRN PRN Reason: Pain, Moderate(Pain Scale 4-6) Last Admin: 06/30/24 10:17 Dose: 5 mg Documented By: LUIS Pharmacy Consult (Consult Rx Vancomycin Dosing) 1 each MISCELLANE DAILY PRN PRN Reason: Consult order Sodium Chloride (0.9 % Sodium Chloride Flush 3 Ml Syringe) 3 ml IVFLUSH QSHIFT [facility] Last Admin: 06/30/24 06:59 Dose: Not Given Documented By: LUIS Non-Admin Reason: IV Running Labs 06/30/24 06:29 06/30/24 06:29 Labs: Laboratory Results - last 24 hr 06/29/24 06/30/24 21:06 06:29 MCV 89.9 MCH 29.8 MCHC 33.1 RDW 21.1 H Plt Count 131 L MPV 12.0 Absolute Nucleated RBC 0.000 Nucleated RBC % (auto) 0.0 Anion Gap 12 Estim Creat Clear Calc 106.6 Estimated GFR > 60 Random Glucose 78 Calcium 8.2 L Random Vancomycin 13.2 L Microbiology Microbiology Results: Microbiology 06/28/24 21:23 Blood Culture - Preliminary Blood - Venous No growth after 24 hours. 06/28/24 21:23 Blood Culture - Preliminary Blood - Venous No growth after 24 hours. 06/27/24 12:40 Blood Culture - Preliminary Blood - Venous No growth after 48 hours. 06/27/24 12:17 Blood Culture - Preliminary Blood - Venous No growth after 48 hours. 06/28/24 08:56 Gram Stain - Final Sputum - Expectorated Sputum Culture - Preliminary Culture in progress. Assessment and Plan (1) Right lower lobe pneumonia: Status: Acute (2) Pneumonia: Status: Acute (3) Sepsis: Status: Acute (4) AIDS: Status: Acute Plan This is a 33-year-old female with pertinent history of HIV, history of MAC, tobacco use disorder, hidradenitis suppurativa, pulmonary nodules who presents to the emergency department for evaluation of dyspnea and cough. # Sepsis due to right-sided pneumonia complicated with chest pain in HIV (possible AIDs) Became septic again overnight repeat CXR Normal Lactate New blood cultures sent and pending Pending PJP, Cryptococcal, asperigilus, Legionella and Strep to dc LR by the end of the day Continue IV Vancomycin and Zosyn Infectious Disease consulted follow Vancomycin trough Pulm eval , Add Voriconazole 200 mg Q12 and consider Bronchoscopy Morphine and Oxycodone PRN for pain # History of MAC: On atovaquone, ethambutol and azithromycin # HIV, undetectable CD4 count, continue Biktarvy # Normocytic anemia, chronic # Hypokalemia: Repleted and corrected # Tobacco use disorder, advised to quit smoking DVT prophylaxis: Lovenox Full code Admit as inpatient and will require overnight minimum hospital stay for IV antibiotics and possible need of Bronchoscopy, which is not possible in a lesser acute setting. Quality Stroke Does the patient have a stroke diagnosis?: No VTE Prior VTE?: No VTE Risk Level:: Medical - moderate - high VTE Device Contraindication: Treatment Not Indicated VTE Drug Contraindication: N/A - Med Ordered
--- NOTE | 2024-06-30 13:38 | HE.PHANOTE ---
RE VORICONAZOLE: DR HA ENTERED DOSE OF VORICONAZOLE IV 200 MG Q12. CONFIRMED WITH PROVIDER THAT HE IS TREATING FOR POSSIBLE ASPERGILLOSIS. NOTIFIED THE PROVIDER THAT 200 MG Q12 IS FOR PO DOSING AND THE RECOMMENDATION FOR IV DOSING IS 6 MG/KG (IN THIS CASE 453 MG) Q12 X 4 DOSES AND THEN DECREASE TO 4 MG/KG (302 MG) Q12 FOR REMAINING DOSES. PROVIDER STATES THAT THE DOSE OF 200 MG Q12 WAS RECOMMENDED BY RESPIRATORY AND HE WOULD LIKE TO STAY WITH IT FOR NOW PENDING RESULTS OF PCR TEST.
[2024-06-30] MEDS: Voriconazole 200 MG in 0.9 % Sodium Chloride 100 ML 50 MG IV (13:59)
[2024-06-30 15:43] VITALS: BP 108/57; PULSE 56; RESP 16; TEMP 36.2; O2SAT 97
[2024-06-30 19:55] VITALS: BP 70/55; PULSE 88; RESP 20; TEMP 36.5; O2SAT 99
--- NOTE | 2024-06-30 21:18 | P.CONPL_ITS ---
History of Present Illness History of Present Illness Consult date: 06/30/24 Chief complaint: Dyspnea Narrative: This is an inpt pulmonary consult. This is a 33-year-old female with pertinent history of HIV/AIDS, history of MAC, tobacco use disorder, hidradenitis suppurativa, pulmonary nodules who presents to the emergency department for evaluation of dyspnea and cough. Patient states symptoms started 2 days prior to presentation. She has been having cough with yellowish/greenish sputum production. Also has been having dyspnea which is worse with exertion and pleuritic chest pain. Admits fevers and chills. Patient states she was admitted 1 year ago for similar complaints and diagnosed with lung infection. She did have a CTA which I personally reviewed. Does have a consolidation in the RLL. She was started on Zosyn/vanco. Sputum +GAS. I will add Clindamycin in view of her risk for developing sepsis. Review of Systems 2 Constitutional: Constitutional: Reports chills, Reports fatigue and Reports fever(s) Cardiovascular: Cardiovascular: Reports dyspnea on exertion Respiratory: Respiratory: Reports cough, Reports pain with cough and Reports dyspnea on exertion Gastrointestinal: Gastrointestinal: Reports no additional gastrointestinal complaints Genitourinary: Genitourinary: Reports no additional female genitourinary complaints Endocrine: Endocrine: Reports fatigue PMFSH Past Medical History Medical History (Updated 06/30/24 @ 21:25 by Tommy Patel MD) AIDS Fever History of pulmonary embolus (PE) Hidradenitis suppurativa 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 AIDS Coronavirus infection HIV (human immunodeficiency virus infection) Bronchopneumonia Bronchiectasis CAP (community acquired pneumonia) HIV (human immunodeficiency virus infection) Family History Family history: reviewed and not pertinent Surgical History Surgical History History of tubal ligation History of excision of lesion History of appendectomy Social History Social History Household Members: Children Housing: Apartment Do you presently have visiting nurse or other home services: No Alcohol intake: never Patient Tobacco Use Status: Former Tobacco user Tobacco use type: Cigarette Cigarettes Per Day: 8 Smoked in Last 30 Days: No e-Cigarette/Vaping Use: Never Used Second Hand Smoke Exposure: No Use of substances other than those prescribed or required for medical reasons: Yes Substance Use Type: Marijuana Substance Use Frequency: Daily Last Used Substance: Days (ago) Currently Displaying Signs/Symptoms of Drug Intoxication Withdrawal: No Have you been hit, kicked, punched, or otherwise hurt by someone within the past year? If so, by whom?: No Do you feel safe in your current relationship?: No Current Relationship Is there a partner from a previous relationship who is making you feel unsafe now?: No Are you made to feel afraid or neglected: No Advance Directives: No Advance Directives Information Provided: Yes Do you have a plan to hurt others: No Plan Recently lost weight without trying: No Eating poorly because of decreased appetite: No Nutrition Risks: No Nutritional Risk Patient : No : No Poor oral hygiene: No service: No Meds Allergies Allergy/AdvReac Type Severity Reaction Status Date / Time sulfamethoxazole Allergy Severe SWELLING Verified 06/27/24 11:38 [From BACTRIM] trimethoprim [From BACTRIM] Allergy Severe SWELLING Verified 06/27/24 11:38 Sulfa (Sulfonamide Allergy Unknown Unknown Verified 06/27/24 11:38 Antibiotics) Active Medications: Current Medications Acetaminophen (Acetaminophen 325 Mg Tablet) 650 mg PO Q6H PRN PRN Reason: Pain, Mild (Pain Scale 1-3), fever or headache Last Admin: 06/29/24 20:06 Dose: 650 mg Albuterol Sulfate (Albuterol Sulfate 90 Mcg 8 Gm Inhaler) 2 puff INHALE Q4H PRN PRN Reason: Shortness Of Breath Or Wheezing Atovaquone (Atovaquone 750 Mg/5 Ml Oral.Susp) 750 mg PO BID [facility] Last Admin: 06/30/24 19:33 Dose: 750 mg Azithromycin (Azithromycin 500 Mg Tablet) 500 mg PO DAILY [facility] Last Admin: 06/30/24 08:48 Dose: 500 mg Benzonatate (Benzonatate 100 Mg Capsule) 100 mg PO TID [facility] Last Admin: 06/30/24 19:33 Dose: 100 mg Bictegravir/Emtricitabine/Tenofovir (Bictegrav/Emtricit/Tenofov Ala Tablet) 1 tab PO DAILY [facility] Last Admin: 06/30/24 08:48 Dose: 1 tab Calcium Carbonate (Calcium Carbonate 750 Mg Tab.Chew) 750 mg PO Q4H PRN PRN Reason: Heartburn Enoxaparin Sodium (Enoxaparin Sodium 40 Mg/0.4 Ml Syringe) 40 mg SUBCUT Q24H [facility] Last Admin: 06/30/24 16:07 Dose: Not Given Guaifenesin (Guaifenesin La 600 Mg Tab.Er.12h) 600 mg PO BID [facility] Last Admin: 06/30/24 19:33 Dose: 600 mg Piperacillin Sod/Tazobactam (Sod 4.5 gm/ Sodium Chloride) 100 mls @ 200 mls/hr IV Q6H [facility] Last Infusion: 06/30/24 17:25 Dose: Infused Vancomycin HCl 1,250 mg/ (Sodium Chloride) 250 mls @ 166.667 mls/hr IV Q12H [facility] Last Infusion: 06/30/24 11:47 Dose: Infused Voriconazole 200 mg/ Sodium (Chloride) 100 mls @ 50 mls/hr IV Q12H [facility] Last Infusion: 06/30/24 16:11 Dose: Infused Clindamycin Phosphate (Cleocin) 600 mg in 50 mls @ 100 mls/hr IV Q8H [facility] Magnesium Hydroxide (Milk Of Magnesia 30 Ml Oral.Susp) 30 ml PO DAILY PRN PRN Reason: Constipation Melatonin (Melatonin 3 Mg Tablet) 6 mg PO BEDTIME PRN PRN Reason: Insomnia Morphine Sulfate (Morphine Sulfate 2 Mg/Ml Cartridge) 2 mg IVPUSH Q4H PRN; Protocol PRN Reason: Pain, Severe (Pain Scale 7-10) Last Admin: 06/30/24 16:06 Dose: 2 mg Pt Own (Ethambutol (400 Mg Tablet)) 1,200 mg PO DAILY [facility] Last Admin: 06/30/24 08:47 Dose: 1,200 mg Ondansetron HCl (Ondansetron Hcl 4 Mg/2 Ml Vial) 4 mg IVPUSH Q8H PRN PRN Reason: Nausea and Vomiting Last Admin: 06/29/24 19:58 Dose: 4 mg Oxycodone HCl (Oxycodone Hcl Immed Release 5 Mg Tablet) 5 mg PO Q6H PRN PRN Reason: Pain, Moderate(Pain Scale 4-6) Last Admin: 06/30/24 20:24 Dose: 5 mg Pharmacy Consult (Consult Rx Vancomycin Dosing) 1 each MISCELLANE DAILY PRN PRN Reason: Consult order Sodium Chloride (0.9 % Sodium Chloride Flush 3 Ml Syringe) 3 ml IVFLUSH QSHIFT [facility] Last Admin: 06/30/24 13:59 Dose: Not Given Home Medications ?Medication ?Instructions ?Recorded ?Confirmed ?Last Taken ?Type bictegravir 50 mg-emtricitabine 1 tab PO DAILY 07/18/22 06/27/24 06/27/24 History 200 mg-tenofovir alafenam 25 mg tablet (Biktarvy) atovaquone 750 mg/5 mL oral 750 mg PO BID 07/09/23 06/27/24 06/27/24 History suspension budesonide-formoterol HFA 160 2 puff inhalation Q6H PRN 07/09/23 06/27/24 06/27/24 History mcg-4.5 mcg/actuation aerosol Shortness Of Breath Or Wheezing inhaler (Symbicort) ethambutol 400 mg tablet 1,200 mg PO DAILY 07/09/23 06/27/24 06/27/24 History albuterol sulfate 90 mcg/actuation 2 puff inhalation Q4-6H PRN 06/27/24 06/27/24 06/27/24 History aerosol inhaler (Ventolin HFA) Shortness Of Breath Or Wheezing azithromycin 500 mg tablet 500 mg PO DAILY 06/27/24 06/27/24 06/27/24 History Physical Exam 2 Vital Signs: Vital Signs: Last Vital Signs Temp 97.7 F 06/30/24 19:55 Pulse 88 06/30/24 19:55 Resp 20 06/30/24 19:55 BP 70/55 L 06/30/24 19:55 Pulse Ox 99 06/30/24 19:55 O2 Del Method Room Air 06/30/24 19:55 BMI result Body Mass Index 27.7 Const: Other: Constitutional : Awake, interactive, not in distress Neck : Normal inspection, Supple Cardiovascular : RRR, no JVP, no lower extremity edema Respiratory : good bilateral air entry, basal RLL crackles, no wheezes Gastrointestinal: soft, lax, Normal bowel sounds, Non tender Skin : Warm, Dry Neurological : Alert & oriented x3, No focal deficit Results Laboratory Findings 06/30/24 06:29 06/30/24 06:29 ABG, PT/INR, D-dimer: PT/INR, D-dimer PT 13.2 SEC (11.1-13.3) 06/27/24 12:17 INR 1.1 (0.9-1.1) 06/27/24 12:17 Abnormal lab findings: Abnormal Labs 06/27/24 06/27/24 06/27/24 12:17 13:22 20:00 WBC RBC 3.73 L D Hgb 10.9 L D Hct 32.7 L D RDW 20.7 H Plt Count 106 L D MPV Immature Gran % (Auto) 0.6 H Neut % (Auto) 88.9 H Lymph % (Auto) 6.6 L Lymph # (Auto) 0.7 L Abs Immat Gran (auto) 0.06 H Absolute Neuts (auto) 9.2 H Neutrophils % (Manual) Lymphocytes % (Manual) Lymphocytes # (Manual) Potassium 2.9 L* D Chloride Carbon Dioxide 18 L Anion Gap BUN Random Glucose Calcium 8.2 L Magnesium 1.5 L Urine Protein 30 (1+) H Urine Blood Moderate (2+) H Urine RBC 6-10 H Random Vancomycin 06/28/24 06/29/24 06/29/24 05:44 06:23 21:06 WBC 4.3 L RBC 3.32 L 3.39 L Hgb 9.9 L 9.7 L Hct 29.7 L 30.9 L RDW 21.6 H 22.0 H Plt Count 98 L 120 L MPV 12.4 H Immature Gran % (Auto) Neut % (Auto) Lymph % (Auto) Lymph # (Auto) Abs Immat Gran (auto) Absolute Neuts (auto) Neutrophils % (Manual) 90 H Lymphocytes % (Manual) 2 L Lymphocytes # (Manual) 0.2 L Potassium Chloride 119 H 115 H Carbon Dioxide 14 L 19 L Anion Gap 11 L 9 L BUN 7 L Random Glucose 116 H Calcium 7.8 L 8.0 L Magnesium Urine Protein Urine Blood Urine RBC Random Vancomycin 13.2 L 06/30/24 06:29 WBC 2.5 L RBC 3.26 L Hgb 9.7 L Hct 29.3 L RDW 21.1 H Plt Count 131 L MPV Immature Gran % (Auto) Neut % (Auto) Lymph % (Auto) Lymph # (Auto) Abs Immat Gran (auto) Absolute Neuts (auto) Neutrophils % (Manual) Lymphocytes % (Manual) Lymphocytes # (Manual) Potassium Chloride 113 H Carbon Dioxide 18 L Anion Gap BUN 5 L Random Glucose Calcium 8.2 L Magnesium Urine Protein Urine Blood Urine RBC Random Vancomycin Microbiology: Microbiology 06/28/24 08:56 Sputum - Expectorated Gram Stain - Final 06/28/24 08:56 Sputum - Expectorated Sputum Culture - Preliminary Streptococcus pyogenes (Grp A) 06/28/24 21:23 Blood - Venous Blood Culture - Preliminary No growth after 24 hours. 06/28/24 21:23 Blood - Venous Blood Culture - Preliminary No growth after 24 hours. 06/27/24 12:40 Blood - Venous Blood Culture - Preliminary No growth after 48 hours. 06/27/24 12:17 Blood - Venous Blood Culture - Preliminary No growth after 48 hours. Assessment and Plan (1) Right lower lobe pneumonia: Qualifiers: Pneumonia type: due to Pneumococcus Qualified Code(s): J13 - Pneumonia due to Streptococcus pneumoniae Status: Acute (2) Sepsis: Qualifiers: Sepsis type: Streptococcus group A Sepsis acute organ dysfunction status: without acute organ dysfunction Qualified Code(s): A40.0 - Sepsis due to streptococcus, group A Status: Acute (3) AIDS: Status: Acute (4) Group A streptococcal infection: Status: Acute Plan continue Zosyn Add Clindamycin monitor for septic shock Procedures Date of Service Date of Service: 06/30/24
[2024-06-30 21:56] LABS: Lymphocyte Count, Total 0.7 X10*3/uL (1.2-4.9)
[2024-06-30] MEDS: Clindamycin Phosphate/D5W 600 MG/50 ML PIGGYBACK 100 MG IV (21:59)
--- NOTE | 2024-06-30 22:00 | PC.NURSE ---
BP low this evening, rechecked manually by this RN at 104/60, pt asymptomatic, provider aware. pt has remained afebrile at this time.
[2024-06-30 22:04] LABS: Vancomycin Random 14.2 mcg/mL (15-20)
[2024-06-30 23:25] VITALS: BP 104/60; RESP 16; TEMP 36.7
--- NOTE | 2024-06-30 23:39 | PC.NURSE ---
BP low in the evening, rechecked manually by this RN at 104/60, provider aware.
--- NOTE | 2024-07-01 00:22 | PC.NURSE ---
zosyn is late due to infiltrated u/s guided IV, awaiting for new u/s guided line.
[2024-07-01] MEDS: Piperacillin Sodium/Tazobactam 4.5 GM in 0.9 % Sodium Chloride 100 ML IV ×5 (01:27→23:42)
[2024-07-01] MEDS: Voriconazole 200 MG in 0.9 % Sodium Chloride 100 ML 50 MG IV (01:59)
--- NOTE | 2024-07-01 02:20 | PC.NURSE ---
Pt sitting up in bed watching videos on phone, in no apparent distress, respirations even an non-labored, no episodes of vomiting, denies nausea, and reports pain as tolerable.Call campos within reach.
[2024-07-01] MEDS: oxyCODONE HCl Immed Release 5 MG TABLET PO ×2 (02:49→11:01)
[2024-07-01 03:42] VITALS: BP 109/56; PULSE 60; RESP 20; TEMP 36.5; O2SAT 95
[2024-07-01] MEDS: Clindamycin Phosphate/D5W 600 MG/50 ML PIGGYBACK 100 MG IV ×2 (05:44→14:31)
[2024-07-01 07:46] VITALS: BP 116/62; PULSE 48; RESP 14; TEMP 36.5; O2SAT 94
[2024-07-01 08:05] LABS: Anion Gap 14 (12-20); Blood Urea Nitrogen 5 mg/dL (9-16); C Reactive Protein 2.84 mg/dL (< or = 0.50); Calcium 8.3 mg/dL (8.4-10.2); Carbon Dioxide 17 mmol/L (22-29); Chloride 114 mmol/L (96-108); Creatinine Clr Calc Pharmacy 115.6; Estimated Glomerular Filt Rate > 60; Glucose Random 66 mg/dL (60-115); Potassium 3.8 mmol/L (3.3-5.1); Sodium 141 mmol/L (135-145)
[2024-07-01] MEDS: Bictegrav/Emtricit/Tenofov Ala TABLET 1 TAB PO (09:33)
[2024-07-01] MEDS: Azithromycin 500 MG TABLET PO (09:33)
[2024-07-01] MEDS: guaiFENesin LA 600 MG TAB.ER.12H PO ×2 (09:33→21:20)
[2024-07-01] MEDS: Atovaquone 750 MG/5 ML ORAL.SUSP PO (09:33)
[2024-07-01] MEDS: Benzonatate 100 MG CAPSULE PO ×3 (09:33→21:20)
[2024-07-01] MEDS: 0.9 % Sodium Chloride Flush 3 ML SYRINGE IVFLUSH ×2 (09:36→21:20)
[2024-07-01] MEDS: vancomycin HCL 1,250 MG in 0.9 % Sodium Chloride 250 ML 166.67 MG IV ×2 (10:31→21:57)
--- NOTE | 2024-07-01 11:06 | P.PNIM_ITS ---
Subjective Subjective Date of Service: 07/01/24 Interval History: seen and evaluated this morning feels better improving right sided chest pain Not spiking fevers Sputum cultures growping Grp A and H.Influenza Review of Systems Review of Systems: Yes all other systems are reviewed and are negative Physical Exam 2 Vital Signs: Vital Signs: Last Vital Signs Temp 97.7 F 07/01/24 07:46 Pulse 48 L 07/01/24 07:46 Resp 14 07/01/24 07:46 BP 116/62 07/01/24 07:46 Pulse Ox 94 07/01/24 07:46 O2 Del Method Room Air 07/01/24 07:46 BMI result Body Mass Index 27.7 Const: Other: Constitutional : Awake, interactive, not in distress Neck : Normal inspection, Supple Cardiovascular : RRR, no JVP, no lower extremity edema Respiratory : good bilateral air entry, basal RLL crackles, fine scattered wheezes Gastrointestinal: soft, lax, Normal bowel sounds, Non tender Skin : Warm, Dry Neurological : Alert & oriented x3, No focal deficit Objective Data Active Medications Acetaminophen (Acetaminophen 325 Mg Tablet) 650 mg PO Q6H PRN PRN Reason: Pain, Mild (Pain Scale 1-3), fever or headache Last Admin: 06/29/24 20:06 Dose: 650 mg Documented By: VIVIAN Albuterol Sulfate (Albuterol Sulfate 90 Mcg 8 Gm Inhaler) 2 puff INHALE Q4H PRN PRN Reason: Shortness Of Breath Or Wheezing Atovaquone (Atovaquone 750 Mg/5 Ml Oral.Susp) 750 mg PO BID [facility] Last Admin: 07/01/24 09:33 Dose: 750 mg Documented By: FABY Azithromycin (Azithromycin 500 Mg Tablet) 500 mg PO DAILY [facility] Last Admin: 07/01/24 09:33 Dose: 500 mg Documented By: FABY Benzonatate (Benzonatate 100 Mg Capsule) 100 mg PO TID [facility] Last Admin: 07/01/24 09:33 Dose: 100 mg Documented By: FABY Bictegravir/Emtricitabine/Tenofovir (Bictegrav/Emtricit/Tenofov Ala Tablet) 1 tab PO DAILY [facility] Last Admin: 07/01/24 09:33 Dose: 1 tab Documented By: FABY Calcium Carbonate (Calcium Carbonate 750 Mg Tab.Chew) 750 mg PO Q4H PRN PRN Reason: Heartburn Enoxaparin Sodium (Enoxaparin Sodium 40 Mg/0.4 Ml Syringe) 40 mg SUBCUT Q24H [facility] Last Admin: 06/30/24 16:07 Dose: Not Given Documented By: LUIS Non-Admin Reason: Patient Refused Guaifenesin (Guaifenesin La 600 Mg Tab.Er.12h) 600 mg PO BID [facility] Last Admin: 07/01/24 09:33 Dose: 600 mg Documented By: FABY Piperacillin Sod/Tazobactam (Sod 4.5 gm/ Sodium Chloride) 100 mls @ 200 mls/hr IV Q6H [facility] Last Infusion: 07/01/24 05:44 Dose: Infused Documented By: VIVIAN Vancomycin HCl 1,250 mg/ (Sodium Chloride) 250 mls @ 166.667 mls/hr IV Q12H [facility] Last Admin: 07/01/24 10:31 Dose: 166.67 mls/hr Documented By: FABY Voriconazole 200 mg/ Sodium (Chloride) 100 mls @ 50 mls/hr IV Q12H [facility] Last Infusion: 07/01/24 03:57 Dose: Infused Documented By: VIVIAN Clindamycin Phosphate (Cleocin) 600 mg in 50 mls @ 100 mls/hr IV Q8H [facility] Last Infusion: 07/01/24 06:22 Dose: Infused Documented By: VIVIAN Magnesium Hydroxide (Milk Of Magnesia 30 Ml Oral.Susp) 30 ml PO DAILY PRN PRN Reason: Constipation Melatonin (Melatonin 3 Mg Tablet) 6 mg PO BEDTIME PRN PRN Reason: Insomnia Morphine Sulfate (Morphine Sulfate 2 Mg/Ml Cartridge) 2 mg IVPUSH Q4H PRN; Protocol PRN Reason: Pain, Severe (Pain Scale 7-10) Last Admin: 06/30/24 16:06 Dose: 2 mg Documented By: LUIS Pt Own (Ethambutol (400 Mg Tablet)) 1,200 mg PO DAILY [facility] Last Admin: 07/01/24 09:33 Dose: 1,200 mg Documented By: FABY Ondansetron HCl (Ondansetron Hcl 4 Mg/2 Ml Vial) 4 mg IVPUSH Q8H PRN PRN Reason: Nausea and Vomiting Last Admin: 06/29/24 19:58 Dose: 4 mg Documented By: VIVIAN Oxycodone HCl (Oxycodone Hcl Immed Release 5 Mg Tablet) 5 mg PO Q6H PRN PRN Reason: Pain, Moderate(Pain Scale 4-6) Last Admin: 07/01/24 11:01 Dose: 5 mg Documented By: FABY Pharmacy Consult (Consult Rx Vancomycin Dosing) 1 each MISCELLANE DAILY PRN PRN Reason: Consult order Sodium Chloride (0.9 % Sodium Chloride Flush 3 Ml Syringe) [facility] Last Admin: 07/01/24 09:36 Dose: 3 ml Documented By: FABY Labs 06/30/24 06:29 07/01/24 05:19 Labs: Laboratory Results - last 24 hr 06/30/24 06/30/24 07/01/24 06:29 21:20 05:19 Total Abs Lymphocytes 0.7 L Anion Gap 14 Estim Creat Clear Calc 115.6 Estimated GFR > 60 Random Glucose 66 Calcium 8.3 L C-Reactive Protein 2.84 H Random Vancomycin 14.2 L Cryptococcal Ag SEE NOTE Microbiology Microbiology Results: Microbiology 06/28/24 08:56 Gram Stain - Final Sputum - Expectorated Sputum Culture - Final Streptococcus pyogenes (Grp A) Haemophilus influenzae 06/28/24 21:23 Blood Culture - Preliminary Blood - Venous No growth after 48 hours. 06/28/24 21:23 Blood Culture - Preliminary Blood - Venous No growth after 48 hours. Assessment and Plan (1) Group A streptococcal infection: Status: Acute (2) AIDS: Status: Acute (3) Right lower lobe pneumonia: Status: Acute (4) Sepsis: Status: Acute (5) Pancytopenia: Status: Acute Plan This is a 33-year-old female with pertinent history of HIV, history of MAC, tobacco use disorder, hidradenitis suppurativa, pulmonary nodules who presents to the emergency department for evaluation of dyspnea and cough. # Sepsis due to right-sided pneumonia complicated with chest pain in HIV (possible AIDs) Became septic again overnight repeat CXR Normal Lactate Sputum cultures growping Grp A and H.Influenza New blood cultures sent and pending Pending PJP, Cryptococcal, asperigilus, Legionella and Strep Continue IV Vancomycin and Zosyn Infectious Disease consulted follow Vancomycin trough Pulm eval , Add Clindamycin for now Morphine and Oxycodone PRN for pain # Pancytopenia; likely related to acute sepsis and hx of HIV, will continue to monitor # History of MAC: On atovaquone, ethambutol and azithromycin # HIV, undetectable CD4 count, continue Biktarvy # Normocytic anemia, chronic # Hypokalemia: Repleted and corrected # Tobacco use disorder, advised to quit smoking DVT prophylaxis: Lovenox Full code Admit as inpatient and will require overnight minimum hospital stay for IV antibiotics pending final cultures, which is not possible in a lesser acute setting Quality Stroke Does the patient have a stroke diagnosis?: No VTE Prior VTE?: No VTE Risk Level:: Medical - moderate - high VTE Device Contraindication: Treatment Not Indicated VTE Drug Contraindication: N/A - Med Ordered
[2024-07-01] MEDS: ondansetron HCL 4 MG/2 ML VIAL IVPUSH (15:22)
[2024-07-01 15:25] VITALS: BP 128/80; PULSE 52; RESP 14; TEMP 36.7; O2SAT 97
--- NOTE | 2024-07-01 16:24 | MHC.CM.PN ---
PT NOT YET MEDICALLY CLEARED DCP: HOME VIA PRIVATE TRANSPORT
[2024-07-01 19:10] VITALS: BP 140/65; PULSE 45; RESP 17; TEMP 36.7; O2SAT 95
[2024-07-01] MEDS: Morphine Sulfate 2 MG/ML CARTRIDGE IVPUSH (21:24)
[2024-07-01 21:48] LABS: Vancomycin Random 17.1 mcg/mL (15-20)
--- NOTE | 2024-07-01 22:00 | HE.PHANOTE ---
Re: Vanco Trough returned at 17.1. Renal is stable. Continue current dose of 1250 mg q 12h, with predicted AUC 479, predicted trough 13.3. Next trough is 07/02 @ 2100.
--- NOTE | 2024-07-02 | ECG_ITS ---
Test Reason : bradycardia Blood Pressure : / mmHG Vent. Rate : 044 BPM Atrial Rate : 044 BPM P-R Int : 148 ms QRS Dur : 090 ms QT Int : 512 ms P-R-T Axes : 008 040 043 degrees QTc Int : 437 ms Marked sinus bradycardia Abnormal ECG When compared with ECG of 27-JUN-2024 12:44, Vent. rate has decreased BY 76 BPM Nonspecific T wave abnormality no longer evident in Inferior leads T wave amplitude has increased in Anterolateral leads Referred By: Juaquin Chery Electronically Signed By:NABILA NAIK
[2024-07-02 03:28] VITALS: BP 124/58; PULSE 45; RESP 18; TEMP 37.1; O2SAT 95
[2024-07-02] MEDS: Morphine Sulfate 2 MG/ML CARTRIDGE IVPUSH (04:07)
[2024-07-02] MEDS: Piperacillin Sodium/Tazobactam 4.5 GM in 0.9 % Sodium Chloride 100 ML IV (04:41)
[2024-07-02 06:53] LABS: Hemoglobin 9.8 g/dl (12.0-16.0); Mean Corpuscular HGB Conc 32.7 g/dl (31.0-35.0); Mean Corpuscular Hemoglobin 29.2 pg (27.0-33.0); Mean Corpuscular Volume 89.3 fL (80.0-98.0); Mean Platelet Volume 12.3 fL (9.4-12.3); Platelet Count 174 X10*3/uL (160-400); Red Blood Count 3.36 X10*6/uL (4.20-5.50); Red Cell Distribution Width 20.3 % (11.0-16.0); White Blood Count 3.4 X10*3/uL (4.8-10.8)
[2024-07-02 07:10] LABS: Anion Gap 13 (12-20); Blood Urea Nitrogen 5 mg/dL (9-16); Carbon Dioxide 20 mmol/L (22-29); Chloride 113 mmol/L (96-108); Creatinine Clr Calc Pharmacy 103.9; Estimated Glomerular Filt Rate > 60; Glucose Random 81 mg/dL (60-115); Potassium 3.6 mmol/L (3.3-5.1); Sodium 142 mmol/L (135-145)
[2024-07-02 07:13] LABS: Creatinine Clr Calc Pharmacy 101.3; Estimated Glomerular Filt Rate > 60
[2024-07-02 07:45] VITALS: BP 132/60; PULSE 44; RESP 12; TEMP 36.8; O2SAT 96
[2024-07-02] MEDS: Bictegrav/Emtricit/Tenofov Ala TABLET 1 TAB PO (08:27)
[2024-07-02] MEDS: guaiFENesin LA 600 MG TAB.ER.12H PO (08:27)
[2024-07-02] MEDS: Benzonatate 100 MG CAPSULE PO (08:27)
[2024-07-02] MEDS: Azithromycin 500 MG TABLET PO (08:27)
[2024-07-02] MEDS: Atovaquone 750 MG/5 ML ORAL.SUSP PO (08:30)
[2024-07-02] MEDS: 0.9 % Sodium Chloride Flush 3 ML SYRINGE IVFLUSH (08:32)
--- NOTE | 2024-07-02 10:58 | P.DS_ITS ---
DS: Providers Provider Date of Service: 07/02/24 Date of admission: 06/27/24 17:17 Primary care physician: Carol Ramirez MD Consults: 06/27/24 17:26 Consult to Infectious Diseases Routine Consulting Provider: [facility] Reason for consultation: HIV, PNA 06/29/24 08:43 Consult to Pulmonology Routine Consulting Provider: [facility] Reason for consultation: Right sided chest pain with PNA in HIV patient DS: Diagnosis Discharge Diagnosis (1) Group A streptococcal infection: Status: Acute (2) AIDS: Status: Acute (3) Right lower lobe pneumonia: Status: Acute (4) Sepsis: Status: Acute (5) Pancytopenia: Status: Acute (6) Acute hypokalemia: Status: Acute DS: Summary Hospital Course Hospital Course: Admission note HPI This is a 33-year-old female with pertinent history of HIV, history of MAC, tobacco use disorder, hidradenitis suppurativa, pulmonary nodules who presents to the emergency department for evaluation of dyspnea and cough. Patient states symptoms started 2 days prior to presentation. She has been having cough with yellowish/greenish sputum production. Also has been having dyspnea which is worse with exertion and pleuritic chest pain. Admits fevers and chills. Patient states she was admitted 1 year ago for similar complaints and diagnosed with lung infection. No nausea, vomiting, abdominal pain, changes in urinary or bowel habits. In the emergency department, patient was found to be septic and imaging with right-sided pneumonia. Hospital course # Sepsis due to right-sided pneumonia complicated with chest pain in AIDs patient. Treated with IV antibiotics of Vancomycin and Zosyn as Chest images were consistent with pneumonia. CTA chest negative for PE. blood cultures remained negative but Sputum cultures growping Grp A and H.Influenza. Pending PJP, Cryptococcal, asperigilus, Legionella. She was evaluated by Pulmonology and ID specialist. The patient made significant improvement as pain improved and she was able to ambulate on room air with no reported dyspnea. To be discharged on Doxycycline and Augmentin to finish total of 2 weeks of antibiotics. # Pancytopenia; likely related to acute sepsis and AIDS, improved but remains low and need follow up with PCP. # Hx HIV infection with AIDS, History of MAC: On atovaquone, ethambutol and azithromycin. On Biktarvy which she takes daily. To follow with HIV clinic as outpatient. Discharge plan Continue Doxycycline and Augmentin as prescribed Continue HIV medications Follow with PCP and HIV clinic as scheduled Time Attestation Discharge Coordination Time (in mins): 39 Quality: Safe Use of Opioids Does Pt have an Active Cancer Diagnosis on the Problem List?: No Quality: Stroke Does the patient have a stroke diagnosis?: No Physical Exam Vital Signs: Vital Signs: Last Vital Signs Temp 98.2 F 07/02/24 07:45 Pulse 44 L 07/02/24 07:45 Resp 12 07/02/24 07:45 BP 132/60 07/02/24 07:45 Pulse Ox 96 07/02/24 07:45 O2 Del Method Room Air 07/02/24 07:45 BMI result Body Mass Index 27.7 Const: Other: Constitutional : Awake, interactive, not in distress Neck : Normal inspection, Supple Cardiovascular : RRR, no JVP, no lower extremity edema Respiratory : good bilateral air entry, fine basal RLL crackles, no wheezes Gastrointestinal: soft, lax, Normal bowel sounds, Non tender Skin : Warm, Dry Neurological : Alert & oriented x3, No focal deficit DS: Data Data Completed and Pending Completed studies during hospitalization [Text1]: Procedures Drainage of Right Upper Lung Lobe, Via Natural or Artificial Opening Endoscopic, Diagnostic (07/14/23) Excision of Right Upper Lung Lobe, Via Natural or Artificial Opening Endoscopic, Diagnostic (07/14/23) Labs on day of discharge: Laboratory Results - last 24 hr 07/01/24 07/02/24 07/02/24 20:56 05:53 05:53 WBC 3.4 L RBC 3.36 L Hgb 9.8 L Hct 30.0 L MCV 89.3 MCH 29.2 MCHC 32.7 RDW 20.3 H Plt Count 174 D MPV 12.3 Absolute Nucleated RBC 0.000 Nucleated RBC % (auto) 0.0 Sodium 142 Potassium 3.6 Chloride 113 H Carbon Dioxide 20 L Anion Gap 13 BUN 5 L Creatinine 0.81 0.79 Estim Creat Clear Calc 101.3 Estimated GFR Random Glucose Calcium Random Vancomycin 17.1 07/02/24 07/02/24 05:53 05:53 WBC RBC Hgb Hct MCV MCH MCHC RDW Plt Count MPV Absolute Nucleated RBC Nucleated RBC % (auto) Sodium Potassium Chloride Carbon Dioxide Anion Gap BUN Creatinine Estim Creat Clear Calc 103.9 Estimated GFR > 60 > 60 Random Glucose 81 Calcium 8.0 L Random Vancomycin Preliminary micro results at discharge 06/28/24 21:23 Blood Culture - Preliminary Blood - Venous No growth after 48 hours. 06/28/24 21:23 Blood Culture - Preliminary Blood - Venous No growth after 48 hours. 06/27/24 12:40 Blood Culture - Preliminary Blood - Venous No growth after 48 hours. 06/27/24 12:17 Blood Culture - Preliminary Blood - Venous No growth after [address] scan - chest: Radiologist's impression: ITS Impressions Chest CTA 06/27/24 15:02 IMPRESSION: 1. No evidence of pulmonary emboli. 2. Bibasilar atelectasis with possible new/worsening consolidation/collapse in the posterior right lower lobe. 3. Stable stellate area on top of the minor fissure in the right upper lobe, likely mechelle tissue at the intersection of multiple pleural surfaces. 4. VTE: negative. Chest X-Ray 06/29/24 09:25 IMPRESSION: 1. Redemonstrated radiopacities involving the bilateral lung bases, left greater than right potentially representing resolving infectious/inflammatory etiology intermixed with atelectasis. 2. Slight bronchial thickening. Discharge Plan Discharge Anticipated Discharge Date/Time: 07/02/24 10:48 Patient Disposition: Home, Self-Care Discharge Diagnosis: Pneumonia Referrals: Carol Ramirez MD [Primary Care Provider] - 1 Week Discharge Medications: New oxycodone 5 mg Tablet 5 mg PO Q6H PRN (Reason: Pain, Moderate(Pain Scale 4-6)) Qty: 10 0RF Rx Instructions: Partial Fill upon patient request. benzonatate 100 mg Capsule 100 mg PO TID Qty: 24 0RF amoxicillin-pot clavulanate 875-125 mg Tablet 1 tab PO Q12H Qty: 20 0RF doxycycline monohydrate 100 mg Capsule 100 mg PO Q12H Qty: 20 0RF Continued Biktarvy 50-200-25 mg tablet 1 tab PO DAILY ethambutol 400 mg tablet 1,200 mg PO DAILY atovaquone 750 mg/5 mL suspension 750 mg PO BID budesonide-formoterol [Symbicort] 160-4.5 mcg/actuation HFA aerosol inhaler 2 puff inhalation Q6H PRN (Reason: Shortness Of Breath Or Wheezing) acetaminophen [Tylenol Extra Strength] 500 mg tablet 1,000 mg PO TID PRN (Reason: fever or pain) Qty: 120 0RF albuterol sulfate [Ventolin HFA] 90 mcg/actuation HFA aerosol inhaler 2 puff inhalation Q4-6H PRN (Reason: Shortness Of Breath Or Wheezing) azithromycin 500 mg tablet 500 mg PO DAILY Discharge Orders: Discharge Order (Routine); Ordered 07/02/24 Ordered By: Juaquin Chery Diet: Advance to usual diet Activity on Discharge: As tolerated Stand Alone Forms: Patient Portal Discharge page Print Language: Swedish Care Plan Goals: You were treated for Pneumonia with IV antibiotics as you were evaluated by lung and infectious disease specialist who recommended 2 weeks of antibiotics. Continue Doxycycline and Augmentin as prescribed Continue HIV medications Follow with PCP and HIV clinic as scheduled Health Concerns: Read below Plan of Treatment: Read below Assessment: Read below
[2024-07-02] MEDS: Amoxicillin/Potassium Clav 875 MG TABLET PO (11:07)
[2024-07-02] MEDS: Doxycycline Monohydrate 100 MG CAPSULE PO (11:07)
--- NOTE | 2024-07-02 11:18 | P.CDIM_ITS ---
PROVIDER RESPONSE TEXT: To clarify, the appropriate diagnosis supported by the clinical indicators: Mild intermittent QUERY TEXT: PHYSICIAN'S DOCUMENTATION REQUEST Date of Query: 07/02/2024 09:23 AM EDT Patient Name: Nelida Hopkins Admit Date: 06/27/2024 Dear Juaquin Chery MD, A review of the medical record indicates additional documentation may be needed. Please review below and update the documentation accordingly. The diagnosis of asthma was documented in the record: ID consult noted: She has Asthma Tobacco use disorder. Home medication: Albuterol Dyspnea, pleuritic chest pain, History of lung infection, wheezes throughout. Based on the above, please clarify in the Progress Notes further specificity regarding the type and a cuity of the asthma: Mild intermittent Mild persistent Moderate persistent Severe persistent Other (explain) Clinically unable to determine (explain) Thank you, Bethany Coy, CCS, CDIS Use of terms such as suspected, likely, concern for, or probable (associated with a specific diagnosi s that is being evaluated, monitored, or treated as if it exists) are acceptable and can be coded in the inpatient se tting, when documented at the time of discharge. Please use your independent medical judgment in providing your response. THIS QUERY IS PART OF THE PERMANENT MEDICAL RECORD
--- NOTE | 2024-07-02 13:23 | MHC.CM.PN ---
Pt is medically cleared for discharge home self-care, pt has her own transport home.
--- NOTE | 2024-07-02 13:26 | PC.NURSE ---
Upon DC Pt showed this RN [facility] jose that states shes allergic to doxy. rash. shes concerned because shes been nauseas and small emesis after abx. Including the iv abx. She didnt have any rash reaction to taking the po doxy. I advised her to be sure to take them on a full stomach, give some time between each abx, and rec probiotics. Notfied MD Hernandez. stated if Pt can tolerate med to continue taking it. If unable to tolerate she can notify her pc to switch. She also po zithro which the md said the could switch to if needed. per She is also has Azithromycin 500. so she can continue that with Augmentin worse case scenario
[2024-07-05 14:08] LABS: Aspergillus Antigen Not Detected (Not Detected); Index Value 0.05 (<0.50)
--- NOTE | 2024-07-25 07:56 | P.CDIM_ITS ---
PROVIDER RESPONSE TEXT: To clarify, the appropriate diagnosis supported by the clinical indicators: Group A streptococcus pyogenes pneumoniae: yes QUERY TEXT: PHYSICIAN'S DOCUMENTATION REQUEST Date of Query: 07/12/2024 08:16 AM EDT Patient Name: Nelida Hopkins Admit Date: 06/27/2024 Dear Juaquin Chery MD, A review of the medical record indicates additional documentation may be needed. Please review below and update the documentation accordingly. Clinical Indicators: Discharge summary: Group A streptococcal infection. Right lower lobe pneumonia Sepsis Micro: sputum - Streptococcus pyogenes Group A - 06/28/24 Sepsis due to right sided pneumonia complicated with chest pain in an AIDS patient. Treated with IV antibiotics Vancomycin and Zosyn as chest images were consistent with pneumonia. Pulmonary consultation note 06/30 - Right lower lobe pneumonia, Sepsis due to streptococcus group A. Based on the above, could you clarify in the Progress Notes further specificity regarding the most li bayron type of pneumonia you suspect/linking organism (even if specific organism may not be known)? Group A streptococcus pyogenes pneumoniae Please indicate if strep B, strep pneumonia, or other type Gram negative Pneumonia Please indicate if Pseudomonas, Klebsiella, or other Viral Pneumonia Please indicate parainfluenza, RSV, adenovirus, influenza (indicate type), etc. Other organism Please specify known or suspected organism Other (explain) Clinically unable to determine (explain) Thank you, Bethany Coy, CCS, CDIS Use of terms such as suspected, likely, concern for, or probable (associated with a specific diagnosi s that is being evaluated, monitored, or treated as if it exists) are acceptable and can be coded in the inpatient se tting, when documented at the time of discharge. Please use your independent medical judgment in providing your response. THIS QUERY IS PART OF THE PERMANENT MEDICAL RECORD
== END 2024-07-02 12:50 | disposition home or self-care (01) | DRG 892 ==
LOC: HO.ED 17:31 → HO.EDOVER 18:10 → HO.S3 06-28 08:26
PROVIDERS: Internal Medicine; Physician Assistant Medical; Admitting Provider Student in an Organized Health Care Education/Training Program; Emergency Provider Student in an Organized Health Care Education/Training Program; PCP Internal Medicine; Visit Provider Student in an Organized Health Care Education/Training Program
DX: A41.9 Sepsis, unspecified organism (principal); B20 Human immunodeficiency virus [HIV] disease; J15.4 Pneumonia due to other streptococci; E87.6 Hypokalemia; J45.20 Mild intermittent asthma, uncomplicated; L73.2 Hidradenitis suppurativa; Z88.2 Allergy status to sulfonamides; Z79.899 Other long term (current) drug therapy
CPT/HCPCS: 0241U; 36415; 71045; 71275; 80048; 80053; 80202; 81001; 82565; 83605; 83735; 84484; 85007; 85025; 85027; 85048; 85610; 85730; 86140; 86403; 87040; 87070; 87077; 87147; 87185; 87205; 87305; 87633; 93005; 94640; 99285; J0692; J0736; J1170; J1650; J1885; J2270; J2405; J2543; J2919; J3371; J3465; J3475; J7120; Q9967

== ENCOUNTER → 2024-06-27 11:43 | Outpatient (BNV) | payer OTHER, SELFPAY | PROVIDERS: Admitting Provider Student in an Organized Health Care Education/Training Program; Emergency Provider Student in an Organized Health Care Education/Training Program; PCP Internal Medicine; Visit Provider Internal Medicine Cardiovascular Disease | DX: R06.02 Shortness of breath (principal); R00.0 Tachycardia, unspecified | CPT/HCPCS: 93010 ==

== ENCOUNTER → 2024-06-27 11:47 | Outpatient (BNV) | payer OTHER, SELFPAY | PROVIDERS: Emergency Provider Student in an Organized Health Care Education/Training Program; PCP Internal Medicine; Visit Provider Student in an Organized Health Care Education/Training Program | DX: J13 Pneumonia due to Streptococcus pneumoniae (principal); B95.0 Streptococcus, group A, as the cause of diseases classified elsewhere; B20 Human immunodeficiency virus [HIV] disease; A40.0 Sepsis due to streptococcus, group A; D61.818 Other pancytopenia; E87.6 Hypokalemia | CPT/HCPCS: 99223; 99232; 99233; 99239 ==

== ENCOUNTER 2024-06-27 17:17 | Outpatient (BNV) | payer OTHER, SELFPAY | END 2024-07-02 09:23 | PROVIDERS: Admitting Provider Student in an Organized Health Care Education/Training Program; Emergency Provider Student in an Organized Health Care Education/Training Program; PCP Internal Medicine; Visit Provider Internal Medicine | DX: R00.1 Bradycardia, unspecified (principal); R94.31 Abnormal electrocardiogram [ECG] [EKG] | CPT/HCPCS: 93010 ==

== ENCOUNTER → 2024-06-27 17:17 | Outpatient (BNV) | payer OTHER, SELFPAY | PROVIDERS: Admitting Provider Student in an Organized Health Care Education/Training Program; Emergency Provider Student in an Organized Health Care Education/Training Program; PCP Internal Medicine; Visit Provider Internal Medicine | DX: J18.9 Pneumonia, unspecified organism (principal); A41.9 Sepsis, unspecified organism | CPT/HCPCS: 99222 ==

== ENCOUNTER → 2024-06-27 17:17 | Outpatient (BNV) | payer OTHER, SELFPAY | PROVIDERS: Admitting Provider Student in an Organized Health Care Education/Training Program; Emergency Provider Student in an Organized Health Care Education/Training Program; PCP Internal Medicine; Visit Provider Hospitalist | DX: J13 Pneumonia due to Streptococcus pneumoniae (principal); A40.0 Sepsis due to streptococcus, group A; B20 Human immunodeficiency virus [HIV] disease; B95.0 Streptococcus, group A, as the cause of diseases classified elsewhere | CPT/HCPCS: 99223 ==

== ENCOUNTER 2025-02-18 18:28 | Emergency (ER) | payer OTHER, SELFPAY ==
--- NOTE | ~2025-02-18 | CT_ITS ---
CLINICAL HISTORY: bilateral lower quadrant pain CT abdomen and pelvis with contrast Comparison: None Findings: Bronchiectasis right lower lobe posterior and medial basilar segments. Associated mild mucous plugging. No consolidation or effusion. The gallbladder and solid organs are within normal limits. No renal stones. No bowel obstruction, pneumoperitoneum, or pneumatosis. Left ovarian cyst 5.6 cm. Uterus and right ovary unremarkable. Appendectomy. Nabothian cyst. No ascites or hernia. No acute fracture. L5-S1 central disc protrusion with inferior extrusion 10 mm. Associated vacuum disc phenomenon and loss of disc space. This could be a chronic finding. IMPRESSION: 1. Left ovarian cyst. Recommend nonemergent ultrasound characterization. Recommend emergent evaluation including Doppler examination if there is concern for an ovarian torsion. 2. Central disc protrusion with inferior extrusion at L5-S1 is of uncertain chronicity. 3. Additional findings as above. This document has been electronically signed by: Marvin Kelly MD on 02/18/2025 21:15:26
--- NOTE | ~2025-02-18 | US_ITS ---
CLINICAL HISTORY: LLQ pain, r o ovarian cyst US pelvis transabdominal and transvaginal with Doppler Comparison: CT/SR - CT ABDOMEN PELVIS W IV CON - 02/18/25 20:28 EDT Findings: Transabdominal scanning performed for overall anatomy. Transvaginal scanning performed for additional detail. Anteverted uterus is 10.5 cm length. Normal myometrium. Endometrium 15 mm thickness. Small nabothian cysts. Right ovary 3.6 x 1.5 x 2.1 cm. Left ovary 6.0 x 4.1 x 5.2 cm. Associated 5.3 x 4.0 x 4.8 cm hemorrhagic cyst with typical appearance. Normal color Doppler with arterial/venous spectral tracing of both ovaries. No free fluid. IMPRESSION: 1. Left ovarian hemorrhagic cyst 5.3 cm. Typical appearance. Recommend six-month follow-up. 2. No evidence of ovarian torsion. 3. Normal uterus. This document has been electronically signed by: Marvin Kelly MD on 02/19/2025 00:06:22
[2025-02-18 18:38] VITALS: BP 104/85; BP 130/90; PULSE 67; PULSE 69; RESP 24; O2SAT 100; O2SAT 92
[2025-02-18 18:39] VITALS: TEMP 36.9
[2025-02-18] MEDS: Ondansetron ODT 4 MG TAB.RAPDIS TRANSLINGU (19:22)
--- NOTE | 2025-02-18 19:24 | PC.NURSE ---
Pt put the light on in the bathroom to request help and was found on the floor by staff when the door was opened. Pt reports that she experienced visual disturbance and dizziness while attempting to pull her pants up and then subsequently fell to the floor. No LOC. Pt was found lying on her right side with knees partially flexed. Pt c/o head pain. CSMs are intact, and pt is moving all extremities as anticipated. Nausea and vomiting is ongoing. Pt was logged rolled with assist of 4 into supine position on a long backboard for movement. CSMs reassed after c-collar application and they remained intact and normal. Pt was lifted from floor onto a hospital stretcher and moved back into room 24. No other deficits found on assessment. Provider made aware of incident.
[2025-02-18] MEDS: Prochlorperazine Edisylate 10 MG/2 ML VIAL IVPUSH (19:34)
[2025-02-18] MEDS: LORazepam 2 MG/ML VIAL 1 MG IVPUSH (19:34)
[2025-02-18] MEDS: Morphine Sulfate 2 MG/ML CARTRIDGE IVPUSH (19:35)
--- NOTE | 2025-02-18 19:35 | ED_ITS ---
HPI - Abdominal Pain General Chief Complaint: Abdominal Pain Stated Complaint: N/V/D, abd pain Time Seen by Provider: 02/18/25 18:40 Source: patient and EMS Mode of arrival: EMS Limitations: no limitations History of Present Illness ED Provider: Dr. Marlee Iverson HPI narrative: Patient comes to the emergency room complaining of bilateral lower quadrant pain, nausea vomiting and diarrhea since yesterday. Also, patient complaining that she has had menstrual period for about a month. Patient denies fever or chills. Related Data Home Medications ?Medication ?Instructions ?Recorded ?Confirmed bictegravir 50 mg-emtricitabine 1 tab PO DAILY 07/18/22 06/27/24 200 mg-tenofovir alafenam 25 mg tablet (Biktarvy) atovaquone 750 mg/5 mL oral 750 mg PO BID 07/09/23 06/27/24 suspension budesonide-formoterol HFA 160 2 puff inhalation Q6H PRN 07/09/23 06/27/24 mcg-4.5 mcg/actuation aerosol Shortness Of Breath Or Wheezing inhaler (Symbicort) ethambutol 400 mg tablet 1,200 mg PO DAILY 07/09/23 06/27/24 albuterol sulfate 90 mcg/actuation 2 puff inhalation Q4-6H PRN 06/27/24 06/27/24 aerosol inhaler (Ventolin HFA) Shortness Of Breath Or Wheezing azithromycin 500 mg tablet 500 mg PO DAILY 06/27/24 06/27/24 Previous Rx's ?Medication ?Instructions ?Recorded acetaminophen 500 mg tablet 1,000 mg (2 x 500 mg) PO TID PRN 07/24/23 (Tylenol Extra Strength) fever or pain #120 tabs amoxicillin 875 mg-potassium 1 tab PO Q12H #20 tabs 07/02/24 clavulanate 125 mg tablet benzonatate 100 mg capsule 100 mg PO TID #24 caps 07/02/24 doxycycline monohydrate 100 mg 100 mg PO Q12H #20 caps 07/02/24 capsule oxycodone 5 mg tablet 5 mg PO Q6H PRN Pain, 07/02/24 Moderate(Pain Scale 4-6) #10 tabs ibuprofen 600 mg tablet 600 mg PO TID PRN fever or pain 02/19/25 #20 tabs Allergies Allergy/AdvReac Type Severity Reaction Status Date / Time sulfamethoxazole Allergy Severe SWELLING Verified 02/18/25 18:45 [From BACTRIM] trimethoprim [From BACTRIM] Allergy Severe SWELLING Verified 02/18/25 18:45 Sulfa (Sulfonamide Allergy Unknown Unknown Verified 02/18/25 18:45 Antibiotics) Review of Systems Review of Systems Constitutional : No Weight loss, No Fever, No Chills, No Night Sweats, No Fatigue, No Malaise ENT/Mouth : No Hearing loss, No Ear Pain, No Nasal Congestion, No Sinus Pain, No Hoarseness, No sore throat, No Rhinorrhea, No Swallowing Difficulty Eyes: No Eye Pain, No Swelling, No Redness, No Foreign Body, No Discharge, No Vision Changes Cardiovascular : No Chest Pain, No SOB, No Dyspnea on Exertion, No Orthopnea, No Edema, No Palpitations Respiratory : No Cough, No Sputum, No Wheezing, No Smoke Exposure, No Dyspnea Gastrointestinal : No Nausea, No Vomiting, No Diarrhea, No Constipation, No abdominal Pain, No Hematochezia, No Melena Genitourinary : Complaining of heavy vaginal bleeding for 1 month, No Dysuria, No Urinary Frequency, No Hematuria, No Urinary Incontinence, No Urgency, No Flank Pain, No Urinary Flow Changes, No Hesitancy Musculoskeletal : No joint pain, No Myalgias, No Joint Swelling Skin : No Skin Lesions, No rash Neuro : No Weakness, No Numbness, No Paresthesias, No Loss of Consciousness, No Dizziness, No Headache Psych : No Anxiety/Panic, No Depression, No SI/HI/AH/VH, No Social Issues, Heme/Lymph: No Bruising, No Bleeding,No Lymphadenopathy Endocrine : No Polyuria, No Polydipsia, No Temperature Intolerance [facility] Past Medical History Medical History Pancytopenia AIDS Fever History of pulmonary embolus (PE) Hidradenitis suppurativa 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 AIDS Coronavirus infection HIV (human immunodeficiency virus infection) Bronchopneumonia Bronchiectasis CAP (community acquired pneumonia) HIV (human immunodeficiency virus infection) Surgical History History of tubal ligation History of excision of lesion History of appendectomy Social History Social History Household Members: Children Housing: Apartment Do you presently have visiting nurse or other home services: No Alcohol intake: never Patient Tobacco Use Status: Former Tobacco user Tobacco use type: Cigarette Cigarettes Per Day: 8 e-Cigarette/Vaping Use: Never Used Second Hand Smoke Exposure: No Substance Use Type: Marijuana service: No Physical Exam ED Vital Signs: Vital Signs - 24 hr 02/18/25 18:38 02/18/25 18:39 02/18/25 23:01 Temperature 98.4 F 98.3 F Pulse Rate 67 80 Respiratory Rate 24 H 20 Blood Pressure 104/85 100/57 L Pulse Oximetry 100 98 Oxygen Delivery Method Room Air Room Air BMI result Body Mass Index 30.0 Const Other: Appearance: Alert. Oriented X3. yelling, crying, very anxious Eyes: Pupils equal, round and reactive to light. ENT: Pharynx normal. Neck: Normal inspection. Neck supple. No lymph nodes noted. No crepitus CVS: Normal heart rate and rhythm. Pulses normal. Normal S1 and S2 Respiratory: No respiratory distress. Breath sounds normal. No Wheezing. No rales Abdomen: Soft, exaggerated response to very minimal pressure to palpation, barely even touching the patient Skin: Skin warm and dry. Normal skin color. Normal skin turgor. Extremities: No lower extremity edema. No Lacerations. No Rash Neuro: Oriented X 3. No motor deficit. No sensory deficit. Moving all extremities. No slurred speech. CN 2 through 12 grossly intact Psych: very anxious Course Course Course Narrative: Patient receiving IV fluids, already received under the tongue Zofran, no getting IV Compazine and Ativan and a dose of morphine all of patient's labs and imaging pending I was informed by the patient's nurse that the patient threw herself on the ground in the bathroom for unclear reason Medical Decision Making Medical Decision Making MDM Narrative: My interpretation of labs: At baseline hematology, No abnormality and chemistry, potassium slightly decreased at 3.2, repleted p.o., ETOH negative after receiving the above-mentioned medication, patient was sound asleep, when patient woke up, states that she does not have any pain anymore. CT scan shows an ovarian cyst. Can not rule out a was not torsion. Ultrasound was ordered, no ovarian torsion. However she does have a 5.4 cm left ovarian cyst. Patient instructed to follow-up with her OBGYN. Differential Diagnosis Differential Diagnoses: The differential diagnosis associated with the presentation includes ( SBO, ovarian cyst, ovarian torsion.) Admission/Observation Consideration of admission/observation: Escalation of care including admission/observation considered ( Given patient's initial presentation, observation was considered) Lab Data MDM Lab Attestation statement: I reviewed the patient's lab results. 02/18/25 19:42 02/18/25 19:42 Labs: Lab Results 02/18/25 Range/Units 19:42 WBC 6.5 (4.8-10.8) X10*3/uL RBC 4.65 D (4.20-5.50) X10*6/uL Hgb 13.1 D (12.0-16.0) g/dl Hct 38.7 D (37.0-47.0) % MCV 83.2 (80.0-98.0) fL MCH 28.2 (27.0-33.0) pg MCHC 33.9 (31.0-35.0) g/dl RDW 20.8 H (11.0-16.0) % Plt Count 217 (160-400) X10*3/uL MPV 10.8 (9.4-12.3) fL Immature Gran % (Auto) 0.3 (0.0-0.4) % Neut % (Auto) 83.6 H (45-73) % Lymph % (Auto) 13.3 L (20-40) % Sawyer % (Auto) 2.8 (2-11) % Eos % (Auto) 0.0 (0-4) % Baso % (Auto) 0.0 (0-2) % Lymph # (Auto) 0.9 L (1.2-4.9) X10*3/uL Sawyer # (Auto) 0.2 (0.1-1.2) X10*3/uL Eos # (Auto) 0.0 (0.0-0.4) X10*3/uL Baso # (Auto) 0.0 (0.0-0.2) X10*3/uL Abs Immat Gran (auto) 0.02 (0.00-0.03) X10*3/uL Absolute Neuts (auto) 5.5 (2.0-8.3) x10*3/uL Absolute Nucleated RBC 0.000 (0.0-0.012) X10*3/uL Nucleated RBC % (auto) 0.0 (0.0-0.2) /100WBC Hold Blue Top SEE NOTE Sodium 138 (135-145) mmol/L Potassium 3.2 L (3.3-5.1) mmol/L Chloride 111 H (96-108) mmol/L Carbon Dioxide 19 L (22-29) mmol/L Anion Gap 11 L (12-20) BUN 13 (9-16) mg/dL Creatinine 0.72 (0.5-1.4) mg/dL Estim Creat Clear Calc 117.2 Estimated GFR > 60 Random Glucose 122 H (60-115) mg/dL Calcium 8.9 D (8.4-10.2) mg/dL Total Bilirubin 0.3 (0.0-1.0) mg/dL Direct Bilirubin 0.1 (0.0-0.5) mg/dL AST 25 (5-31) U/L ALT 15 (0-31) U/L Alkaline Phosphatase 103 (39-117) U/L Total Protein 8.7 H (6.5-8.0) g/dL Albumin 4.4 (3.5-5.0) g/dL Lipase 9 (8-78) U/L Beta HCG, Quant < 2 mIU/mL Ethyl Alcohol < 10 mg/dL Independent Interpretation I performed an independent interpretation of an: Ultrasound and CT Scan Radiology Impression Discussion of test interpretation with radiology: I have reviewed the radiologist's reading. Radiologist Impression: Transabdominal scanning performed for overall anatomy. Transvaginal scanning performed for additional detail. Anteverted uterus is 10.5 cm length. Normal myometrium. Endometrium 15 mm thickness. Small nabothian cysts. Right ovary 3.6 x 1.5 x 2.1 cm. Left ovary 6.0 x 4.1 x 5.2 cm. Associated 5.3 x 4.0 x 4.8 cm hemorrhagic cyst with typical appearance. Normal color Doppler with arterial/venous spectral tracing of both ovaries. No free fluid. IMPRESSION: 1. Left ovarian hemorrhagic cyst 5.3 cm. Typical appearance. Recommend six-month follow-up. 2. No evidence of ovarian torsion. 3. Normal uterus Bronchiectasis right lower lobe posterior and medial basilar segments. Associated mild mucous plugging. No consolidation or effusion. The gallbladder and solid organs are within normal limits. No renal stones. No bowel obstruction, pneumoperitoneum, or pneumatosis. Left ovarian cyst 5.6 cm. Uterus and right ovary unremarkable. Appendectomy. Nabothian cyst. No ascites or hernia. No acute fracture. L5-S1 central disc protrusion with inferior extrusion 10 mm. Associated vacuum disc phenomenon and loss of disc space. This could be a chronic finding. Medications Administered Discontinued Medications Generic Name Dose Route Start Last Admin Trade Name Freq PRN Reason Stop Dose Admin Sodium Chloride 1,000 mls @ 999 mls/hr 02/18/25 19:28 02/18/25 20:38 Ns IVCONT 02/18/25 20:28 Infused .Q1H1M ONE Infusion Iohexol 100 ml 02/18/25 20:31 02/18/25 20:33 Iohexol 350 Mg/Ml 100 Ml Infus..Btl IV 02/18/25 20:32 85 ml ONCE ONE Administration Lorazepam 1 mg 02/18/25 19:28 02/18/25 19:34 Lorazepam 2 Mg/Ml Vial IVPUSH 02/18/25 19:29 1 mg ONCE ONE Administration Morphine Sulfate 2 mg 02/18/25 19:28 02/18/25 19:35 Morphine Sulfate 2 Mg/Ml Cartridge IVPUSH 02/18/25 19:29 2 mg ONCE ONE Administration Protocol Ondansetron HCl 4 mg 02/18/25 18:55 02/18/25 19:22 Ondansetron Odt 4 Mg Tab.Rapdis TRANSLINGU 02/18/25 18:56 4 mg ONCE ONE Administration Potassium Chloride 40 meq 02/18/25 21:15 02/18/25 21:30 Potassium Chloride Packet 20 Meq Packet PO 02/18/25 21:16 40 meq ONCE ONE Administration Prochlorperazine Edisylate 10 mg 02/18/25 19:28 02/18/25 19:34 Prochlorperazine Edisylate 10 Mg/2 Ml Vial IVPUSH 02/18/25 19:29 10 mg ONCE ONE Administration Critical Care Time Critical Care Time Critical Care Time: Yes Total Critical Care Time: 45 Attestation: I have personally provided critical care time. Time includes review of lab data, radiology results, discussion with consultants, and monitoring for potential decompensation. Intervention performed as documented. Discharge Plan Discharge Clinical Impression: Ovarian cyst Patient Disposition: Home, Self-Care Instructions: Ovarian Cyst (ED) Additional Instructions: Please follow-up with your primary care physician tomorrow. If you have any worsening or new symptoms, please return to the emergency room or call 911 Prescriptions: New ibuprofen 600 mg tablet 600 mg PO TID PRN (Reason: fever or pain) Qty: 20 0RF No Action Biktarvy 50-200-25 mg tablet 1 tab PO DAILY ethambutol 400 mg tablet 1,200 mg PO DAILY atovaquone 750 mg/5 mL suspension 750 mg PO BID budesonide-formoterol [Symbicort] 160-4.5 mcg/actuation HFA aerosol inhaler 2 puff inhalation Q6H PRN (Reason: Shortness Of Breath Or Wheezing) acetaminophen [Tylenol Extra Strength] 500 mg tablet 1,000 mg PO TID PRN (Reason: fever or pain) Qty: 120 0RF albuterol sulfate [Ventolin HFA] 90 mcg/actuation HFA aerosol inhaler 2 puff inhalation Q4-6H PRN (Reason: Shortness Of Breath Or Wheezing) azithromycin 500 mg tablet 500 mg PO DAILY benzonatate 100 mg Capsule 100 mg PO TID Qty: 24 0RF doxycycline monohydrate 100 mg Capsule 100 mg PO Q12H Qty: 20 0RF amoxicillin-pot clavulanate 875-125 mg Tablet 1 tab PO Q12H Qty: 20 0RF oxycodone 5 mg Tablet 5 mg PO Q6H PRN (Reason: Pain, Moderate(Pain Scale 4-6)) Qty: 10 0RF Rx Instructions: Partial Fill upon patient request. Referrals: [facility]rington St MD [Physician] - 2 days Print Language: Telugu
[2025-02-18] MEDS: 0.9 % Sodium Chloride 1,000 ML 999 ML IVCONT (19:38)
--- NOTE | 2025-02-18 19:46 | PC.NURSE ---
Upon entering the pt room again, pt had removed her c-collar and was sitting up on the stretcher and reported that she did not hit her head or fall in the bathroom. Pt reports that she placed herself on the floor after feeling dizzy while standing. Pt denies head strike and any LOC. CSMs remain intact and pt is moving all extremities as anticipated. Pt denies any head, neck, or back pain. Pt further reports pain and nausea have improved some since medication administration. Provider made aware.
[2025-02-18 19:47] LABS: MANUAL DIFF FLAG NO
[2025-02-18 19:58] LABS: Hematocrit 38.7 % (37.0-47.0); Hemoglobin 13.1 g/dl (12.0-16.0); Imm Gran Abs Auto 0.02 X10*3/uL (0.00-0.03); Imm Gran Pct Auto 0.3 % (0.0-0.4); Lymphocytes Absolute Auto 0.9 X10*3/uL (1.2-4.9); Lymphocytes Percent Auto 13.3 % (20-40); Mean Corpuscular HGB Conc 33.9 g/dl (31.0-35.0); Mean Corpuscular Hemoglobin 28.2 pg (27.0-33.0); Mean Corpuscular Volume 83.2 fL (80.0-98.0); Mean Platelet Volume 10.8 fL (9.4-12.3); Monocytes Absolute Auto 0.2 X10*3/uL (0.1-1.2); Monocytes Percent Auto 2.8 % (2-11); Neutrophils Absolute Auto 5.5 x10*3/uL (2.0-8.3); Neutrophils Percent Auto 83.6 % (45-73); Platelet Count 217 X10*3/uL (160-400); Red Blood Count 4.65 X10*6/uL (4.20-5.50); Red Cell Distribution Width 20.8 % (11.0-16.0); White Blood Count 6.5 X10*3/uL (4.8-10.8)
[2025-02-18 20:19] LABS: Alanine Aminotransferase 15 U/L (0-31); Albumin Level 4.4 g/dL (3.5-5.0); Alkaline Phosphatase 103 U/L (39-117); Anion Gap 11 (12-20); Aspartate Amino Transferase 25 U/L (5-31); Bilirubin Direct 0.1 mg/dL (0.0-0.5); Bilirubin Total 0.3 mg/dL (0.0-1.0); Blood Urea Nitrogen 13 mg/dL (9-16); Calcium 8.9 mg/dL (8.4-10.2); Carbon Dioxide 19 mmol/L (22-29); Chloride 111 mmol/L (96-108); Creatinine Clr Calc Pharmacy 117.2; Estimated Glomerular Filt Rate > 60; Ethanol < 10 mg/dL; Glucose Random 122 mg/dL (60-115); HCG Quantitative < 2 mIU/mL; Lipase 9 U/L (8-78); Potassium 3.2 mmol/L (3.3-5.1); Sodium 138 mmol/L (135-145); Total Protein 8.7 g/dL (6.5-8.0)
[2025-02-18] MEDS: iohexoL 350 MG/ML 100 ML INFUS..BTL IV (20:33)
[2025-02-18] MEDS: Potassium Chloride Packet 20 MEQ PACKET 40 MEQ PO (21:30)
[2025-02-18 23:01] VITALS: BP 100/57; PULSE 80; RESP 20; TEMP 36.8; O2SAT 98
--- OUTSIDE RECORDS SUMMARY | 2025-02-19 00:35 | XMS_ITS | Clinical Summary ---
Author Organization [employer] Address [address] [place] [address] Care Team Providers Care Secretary Book Keeper Name Role Phone Unavailable Primary Care Provider Unavailabl e Allergies Active Allergy Reactions Criticality Noted Date Comments Sulfamethoxazole-Trimethoprim 2022 Medications No known medications Social History Tobacco Use Types Packs/Day Years Used Date Smoking Tobacco: Every Day Cigarettes Smokeless Tobacco: Never Tobacco Cessation:Ready to Q uit: Not Asked; Counseling Given: Not Answered Alcohol Use Standard Drinks/Week Comments Defer 0 (1 standard drink = 0.6 oz pur e alcohol) Comments Unknown Sex and Gender Information Value Date Recorded Sex Assigned at Female 09/19/2022 10:22 AM EDT Legal Sex Female 10:22 AM EDT Gender Identity Female 02/02/2023 8:41 AM EDT Sexual Orientation Straight 09/19/2022 10 :22 AM EDT Last Filed Vital Signs Vital Sign Reading Time Taken Comments Blood Pressure 119/74 02/21/2023 9:20 AM EDT Pulse - - Temperature - - Respiratory Rate - - Oxygen Saturation - - Inhaled Oxygen Concentration - - Weight - - Height - - Body Mass Index - - Plan of Treatment Health Maintenance Due Date Last Done Comments Dental Oral Exam 1991 Dental Prophylaxis 1991 Dental X-Ray: Full Mouth 1991 Depression Screening 1991 HIV Screening 1991 SDOH Screening 1991 Alcohol/Substance Use Screening 2003 Family Planning (PISQ) 2006 Hepatitis C Screening 2009 Hepatitis B Vaccines (1 of 3 - 19+ 3-dose series) 2010 Pap Smear 2012 Pneumococcal Vaccine: Pediat rics (0 to 5 Years) and At-Risk Patients (6 to 49) Years) (2 of 2 - PPSV23) 02/18/2015 12/24/2014 Cervical Cancer Screening 2021 HPV/Cotest 2021 Tobacco Screening 02/03/2024 02/02/2023 Dental X-Ray: Bitewings 02/04/2024 02/02/2023 COVID-19 Vaccine (1 - 2023-2 5 season) 2024 Influenza Vaccine (#1) 2024 12/24/2014 DTaP/Tdap/Td Vaccines (2 - T d or Tdap) 12/24/2024 12/24/2014 Zoster Vaccines (1 of 2) 2041 RSV Patients and Pa tients Aged 60 years or older (1 - 1-dose 75+ series) 2066 HIB Vaccines Aged Out No longer eligi ble based on patient's age to complete this topic HPV Vaccines Aged Out No longer eligi ble based on patient's age to complete this topic Hepatitis A Vaccines Aged Out No long er eligible based on patient's age to complete this topic IPV Vaccines Aged Out No longer eligi ble based on patient's age to complete this topic Meningococcal Vaccine Aged Out No maykel surinder eligible based on patient's age to complete this topic RSV under 20 months Aged Out No longe r eligible based on patient's age to complete this topic Rotavirus Vaccines Aged Out No longer eligible based on patient's age to complete this topic Procedures Procedure Name Priority Date/Time Associated Diagnosis Comments BITEWING - SINGLE RADIOGRAPHIC IMAGE Routine 02/02/2023 11:30 AM EDT from Last 3 Months or Most Recently Relevant to Health Maintenance Insurance [facility] MEDICAID STAND ADULT
[2025-02-19] MEDS: traMADoL HCL 50 MG TABLET PO (00:56)
[2025-02-19 01:02] VITALS: BP 100/57; PULSE 80; RESP 20; TEMP 36.8; O2SAT 98
== END 2025-02-19 01:05 | disposition home or self-care (01) ==
PROVIDERS: Emergency Provider Emergency Medicine; PCP Internal Medicine
DX: N83.202 Unspecified ovarian cyst, left side (principal); R11.2 Nausea with vomiting, unspecified; R10.2 Pelvic and perineal pain; R10.30 Lower abdominal pain, unspecified; R19.7 Diarrhea, unspecified; Z79.899 Other long term (current) drug therapy; Z87.891 Personal history of nicotine dependence
CPT/HCPCS: 36415; 74177; 76830; 76856; 80048; 80076; 80307; 83690; 84702; 85025; 93975; 96361; 96374; 96375; 99283; 99284; J0737; J2060; J2270; Q9967

== ENCOUNTER → 2025-02-18 19:31 | Outpatient (BNV) | payer OTHER, SELFPAY | PROVIDERS: Emergency Provider Emergency Medicine; Visit Provider Radiology Diagnostic Radiology | DX: R10.32 Left lower quadrant pain (principal); R10.31 Right lower quadrant pain; N83.202 Unspecified ovarian cyst, left side | CPT/HCPCS: 74177 ==

== ENCOUNTER 2025-10-30 18:40 | Emergency (ER) | payer OTHER, SELFPAY ==
[2025-10-30 18:56] VITALS: BP 142/94; PULSE 107; RESP 18; TEMP 37.1; O2SAT 100; BMI 28.8
--- NOTE | 2025-10-30 18:56 | ED_ITS ---
HPI - Dental/Oral General Chief complaint: Dental/Oral Stated complaint: Dental Pain Time Seen by Provider: 10/30/25 19:00 Source: patient and RN notes reviewed Mode of arrival: ambulatory Limitations: no limitations History of Present Illness ED Provider: Aimee Buckner PA-C HPI Narrative: This is a 34 year old female who presents the emergency department with concerns of right upper dental pain which started this morning. Patient denies any fevers, chills, difficulty swallowing or breathing. Patient states that she took Tylenol which provided her without any relief. She does have a history of HIV however her CD 4 count is undetectable. No other complaints or concerns at this time. MD Complaint: tooth pain Location: Tooth # (1,2) Teeth map: 2 1. Onset (ago): hour(s) Duration: constant Relieving factors: nothing Exacerbating factors: nothing Treatment prior to arrival: none Related Data Home Medications ?Medication ?Instructions ?Recorded ?Confirmed bictegravir 50 mg-emtricitabine 1 tab PO DAILY 2 06/27/24 200 mg-tenofovir alafenam 25 mg tablet (Biktarvy) atovaquone 750 mg/5 mL oral 750 mg PO BID 07/09/2307/13 suspension budesonide-formoterol HFA 160 2 puff inhalation Q6H NM N 07/09/23 06/27/24 mcg-4.5 mcg/actuation aerosol Shortness Of Breath Or W heezing inhaler (Symbicort) ethambutol 400 mg tablet 1,200 mg PO DAILY 07/09/23 0 06/27/24 albuterol sulfate 90 mcg/actuation 2 puff inhalation Q 4-6H PRN 06/27/24 06/27/24 aerosol inhaler (Ventolin HFA) Shortness Of Breath Or Wheezing azithromycin 500 mg tablet 500 mg PO DAILY 06/27/24 Previous Rx's ?Medication ?Instructions ?Recorded acetaminophen 500 mg tablet 1,000 mg (2 x 500 mg) PO T ID PRN 07/24/23 (Tylenol Extra Strength) fever or pain #120 tabs amoxicillin 875 mg-potassium 1 tab PO Q12H #20 tabs clavulanate 125 mg tablet benzonatate 100 mg capsule 100 mg PO TID #24 caps 06/20 02/10 doxycycline monohydrate 100 mg 100 mg PO Q12H #20 caps 07/02/24 capsule oxycodone 5 mg tablet 5 mg PO Q6H PRN Pain, Moderate(Pain Scale 4-6) #10 tabs ibuprofen 600 mg tablet 600 mg PO TID PRN fever or p ain 02/19/25 #20 tabs tramadol 50 mg tablet 50 mg PO BID PRN pain #6 tab s 02/19/25 acetaminophen 500 mg tablet 1,000 mg (2 x 500 mg) PO Q ID PRN 10/30/25 (Tylenol Extra Strength) pain #30 tabs amoxicillin 875 mg-potassium 1 tab PO BID 7 days #13 t abs 10/30/25 clavulanate 125 mg tablet ibuprofen 600 mg tablet 600 mg PO Q6H PRN pain #30 t abs 10/30/25 Allergies Allergy/AdvReac Type Severity Reaction Status Date / Time sulfamethoxazole (From Allergy Severe SWELLING Verified 10/30/25 18:57 BACTRIM) trimethoprim (From BACTRIM) Allergy Severe SWELLING Verified 10/30/25 18:57 Sulfa (Sulfonamide Allergy Unknown Unknown Verified 10/30/25 18:57 Antibiotics) Review of Systems 2 Review of Systems: Constitutional : No Fever, No Chills ENT/Mouth : No sore throat, No Rhinorrhea Eyes: No Eye Pain, No Swelling, No Redness Cardiovascular : No Chest Pain, No SOB Respiratory : No Cough, No Sputum Gastrointestinal : No Nausea, No Vomiting, No Diarrhea, No abdominal Pain Genitourinary : No Dysuria, No Hematuria Musculoskeletal : No joint pain, No Myalgias, No Joint Swelling Skin : No Skin Lesions Neuro : No Weakness, No Numbness, No Headache All other systems reviewed and are negative Yes all other systems are reviewed and are negative Constitutional: Constitutional: Reports as per [facility] Past Medical History Medical History Pancytopenia AIDS Fever History of pulmonary embolus (PE) Hidradenitis suppurativa 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 AIDS Coronavirus infection HIV (human immunodeficiency virus infection) Bronchopneumonia Bronchiectasis CAP (community acquired pneumonia) HIV (human immunodeficiency virus infection) Surgical History History of tubal ligation History of excision of lesion History of appendectomy Social History Social History Household Members: Children Housing: Apartment Do you presently have visiting nurse or other home services: No Alcohol intake: never Patient Tobacco Use Status: Former Tobacco user Tobacco use type: Cigarette Cigarettes Per Day: 8 e-Cigarette/Vaping Use: Never Used Second Hand Smoke Exposure: No Substance Use Type: Marijuana Advance Directives: No Advance Directives Information Provided: No service: No Physical Exam 2 Exam: Exam: General: Awake, alert, and oriented X3. No acute distress. HEENT: Normal inspection, Tooth #1 and 2 with tenderness to palpation, slight dental decay noted, no surrounding gingival erythema, edema, reflections. No evidence of Abscess. No trismus, drooling, or dysphonia. CVS: Normal heart rate and rhythm. Pulses normal. Respiratory: No respiratory distress Skin: Warm, dry, no rashes noted to exposed skin. Normal skin color. Normal skin turgor. Extremities: Normal to inspection Neuro: Oriented X 3. No motor deficit. No sensory deficit. Vital Signs: Vital Signs: Last Vital Signs Temp 98.8 F 10/30/25 19:55 Pulse 107 H 10/30/25 19:55 Resp 18 10/30/25 19:55 BP 142/94 H 10/30/25 19:55 Pulse Ox 100 10/30/25 19:55 O2 Del Method Room Air 10/30/25 19:55 BMI result Body Mass Index 28.8 Medications Administered Discontinued Medications Generic Name Dose Route Start Last Admin Trade Name Freq PRN Reason Stop Dose Admin Amoxicillin/Clavulanate Potassium 875 mg 10/30/25 18:58 10/30/25 19:34 Amoxicillin/Potassium Clav 875 Mg Tablet PO 10/30/25 18:59 875 mg ONCE ONE Administration Ketorolac Tromethamine 30 mg 10/30/25 18:58 10/30/25 19:35 Ketorolac Tromethamine 30 Mg/Ml Vial IM 10/30/25 18:59 30 mg ONCE ONE Administration Medical Decision Making Medical Decision Making MDM Narrative: This is a 34 year old female who presents to the emergency department with concerns of right upper dental pain which started this afternoon. On arrival, patient tearful, appears to be in pain. She has no evidence of dental abscess requiring I&D today. Will treat with a course of augmentin. We'll also treat with toradol injection in the department. She will follow up with the dentist tomorrow. Given strict return precautions. Patient stable for discharge. Differential Diagnosis Differential Diagnoses: The differential diagnosis associated with the presentation includes dental decay, abscess, dental fracture, dental caries Discharge Plan Discharge Clinical Impression: Pain, dental Patient Disposition: Home, Self-Care Instructions: Toothache (ED) Additional Instructions: You were seen in the emergency department due to dental pain. You medicated you with Toradol, this is a similar medications to ibuprofen therefore do not take anymore ibuprofen or NSAIDs such as naproxen or aspirin until tomorrow morning. You may continue taking Tylenol every 8 hours. You need to follow-up with a dentist as being put on antibiotics is only a temporary solution. If any new or worsening symptoms occur including but not limited to worsening pain, high fevers, inability to swallow, chest pain or shortness of breath, please seek emergent care. Call or visit any of the clinics below to establish with a dentist: [facility] [address] [place] [address] [address] [place] [address] [address] [facility] [address] [place] [address] [address] [place] [address] [address] [facility] [address] [place] [address] [address] [facility] [address] [place] [address] [address] [facility] [address] [place] [address] [address] [facility] [address] [place] [address] [address] [facility] [address] [place] [address] [address] [place] [address] [address] [place] [address] [address] [facility] [address] [place] [address] [facility] [address] [place] [address] [facility] [address] [facility] [address] [place] [address] [facility] [address] [place] [address] [facility] [address] [place] [address] [facility] [address] [place] [address] [facility] [address] [facility] [address] [facility] [address] [place] [address] [address] [place] [address] [address] [place] [address] (One number for all locations) [facility] [address] [place] [address] [facility] [address] [place] [address] [facility] [address] [place] [address] Prescriptions: New amoxicillin-pot clavulanate 875-125 mg tablet 1 tab PO BID 7 Days Qty: 13 0RF ibuprofen 600 mg tablet 600 mg PO Q6H PRN (Reason: pain) Qty: 30 0RF acetaminophen [Tylenol Extra Strength] 500 mg tablet 1,000 mg PO QID PRN (Reason: pain) Qty: 30 0RF No Action Biktarvy 50-200-25 mg tablet 1 tab PO DAILY ethambutol 400 mg tablet 1,200 mg PO DAILY atovaquone 750 mg/5 mL suspension 750 mg PO BID budesonide-formoterol [Symbicort] 160-4.5 mcg/actuation HFA aerosol inhaler 2 puff inhalation Q6H PRN (Reason: Shortness Of Breath Or Wheezing) acetaminophen [Tylenol Extra Strength] 500 mg tablet 1,000 mg PO TID PRN (Reason: fever or pain) Qty: 120 0RF albuterol sulfate [Ventolin HFA] 90 mcg/actuation HFA aerosol inhaler 2 puff inhalation Q4-6H PRN (Reason: Shortness Of Breath Or Wheezing) azithromycin 500 mg tablet 500 mg PO DAILY benzonatate 100 mg Capsule 100 mg PO TID Qty: 24 0RF doxycycline monohydrate 100 mg Capsule 100 mg PO Q12H Qty: 20 0RF amoxicillin-pot clavulanate 875-125 mg Tablet 1 tab PO Q12H Qty: 20 0RF oxycodone 5 mg Tablet 5 mg PO Q6H PRN (Reason: Pain, Moderate(Pain Scale 4-6)) Qty: 10 0RF Rx Instructions: Partial Fill upon patient request. ibuprofen 600 mg tablet 600 mg PO TID PRN (Reason: fever or pain) Qty: 20 0RF tramadol 50 mg tablet 50 mg PO BID PRN (Reason: pain) Qty: 6 0RF Interventions: ED Discharge Assessment Last Done: 10/30/25 19:55 Discharge Date/Time: 10/30/25 19:56 Print Language: Solomon Islander
[2025-10-30 19:55] VITALS: BP 142/94; PULSE 107; RESP 18; TEMP 37.1; O2SAT 100
--- OUTSIDE RECORDS SUMMARY | 2025-10-30 23:33 | XMS_ITS | Clinical Summary ---
Author Organization [facility] Address [email or web address] [facility] [address] [place] [address] Phone Care Team Providers Care Senior Web Applications Developer Name Role Phone Felicita Melgar MD Primary Care Provider [phone] Allergies Active Allergy Reactions Criticality Noted Date Comments Sulfamethoxazole-Trimethoprim 2017 Medications No known medications Social History Tobacco Use Types Packs/Day Years Used Date Smoking Tobacco: Every Day Smokeless Tobacco: Never Alcohol Use Standard Drinks/Week Comments No 0 (1 standard drink = 0.6 oz pur e alcohol) Education Answer Date Recorded Are you interested in more education? Not on morenita e 03/17/2023 Are you concerned about learning? Not on file 03/17/2023 No 03/17/2023 No 03/17/2023 Digital Access Answer Date Recorded No 04/18/2023 No 04/18/2023 No 04/18/2023 Reliable internet access at home? Not on file 04/18/2023 Device with a working camera? Not on file Comments Unknown Sex and Gender Information Value Date Recorded Sex Assigned at Female 04/29/2018 2:59 PM EDT Legal Sex Female 2:41 PM EDT Gender Identity Female 04/29/2018 2:59 PM EDT Sexual Orientation Straight 04/29/2018 2: 59 PM EDT Last Filed Vital Signs Vital Sign Reading Time Taken Comments Blood Pressure 114/78 04/29/2018 5:42 PM EDT Pulse 72 04/29/2018 5:42 PM EDT Temperature 37.1 C (98.8 F) 04/29/2018 5:42 PM EDT Respiratory Rate 17 04/29/2018 5:42 PM EDT Oxygen Saturation 98% 04/29/2018 5:42 PM EDT Inhaled Oxygen Concentration - - Weight 54.4 kg (120 lb) 04/29/2018 2:56 PM EDT Height 165.1 cm (5' 5 ) 04/29/2018 2:56 PM EDT Body Mass Index 19.97 04/29/2018 2:56 PM EDT Plan of Treatment Not on file Medical Devices Not on file Insurance . [address] [place] [address] [employer] . [address] [place] [address] [address] [place] [address] [employer] [address] [place] [address] [employer] [address] [place] [address] [address] [address] [place] [id number] [place] [address] [employer] [address] [place] [address] [address] [address] [place] [id number] [place] [address] [address] [address] [place] [id number] [place] [address] ACO Care Teams Senior Web Applications Developer Relationship Specialty Start Date End Date Felicita Melgar MD [address] [place] [address] PCP - General Internal Medicine 04/29/18 Additional Source Comments The information contained in this document represents components of the legal health record. It is not the complete legal health record.[facility]
--- OUTSIDE RECORDS SUMMARY | 2025-10-30 23:33 | XMS_ITS | Clinical Summary ---
Author Organization [facility] Address [address] [facility] [address] [place] [address] Care Team Providers Care Scrap Hooker Name Role Phone Unavailable Primary Care Provider [...] 1991 HIV Screening 1991 SDOH Screening 1991 Disability Screening 1991 Alcohol/Substance Use Screening 2003 Family Planning (PISQ) 2006 HPV Vaccines (1 - 3-dose series) 2006 Hepatitis C Screening 2009 Hepatitis B Vaccines (1 of 3 - 19+ 3-dose series) 2010 Pap Smear 2012 Pneumococcal Vaccine: Pediat rics (0 to 5 Years) and At-Risk Patients (6 to 49) Years (2 of 2 - PPSV23, PCV20, or PCV21) 02/18/2015 12/24/2014 Cervical Cancer Screening 2021 HPV/Cotest 2021 Tobacco Screening 02/03/2024 02/02/2023 Dental X-Ray: Bitewings 02/04/2024 02/02/2023 DTaP/Tdap/Td Vaccines (2 - T d or Tdap) 12/24/2024 12/24/2014 COVID-19 Vaccine (1 - 2024-2 6 season) 2025 Influenza Vaccine (#1) 2025 12/24/2014 Zoster Vaccines (1 of 2) 2041 [...] patient's age to complete this topic Meningococcal B Vaccine Aged Out No l onger eligible based on patient's age to complete [...] Most Recently Relevant to Health Maintenance Insurance [facility] STAND ADULT
== END 2025-10-30 19:56 | disposition home or self-care (01) ==
PROVIDERS: Emergency Provider Student in an Organized Health Care Education/Training Program; PCP Internal Medicine
DX: K08.89 Other specified disorders of teeth and supporting structures (principal); Z87.891 Personal history of nicotine dependence; Z79.899 Other long term (current) drug therapy
CPT/HCPCS: 96372; 99283; 99284; J1885